=== PATIENT | male | born 1950 | race American Indian/Alaskan Native ===

== ENCOUNTER 2019-05-19 18:07 | Inpatient (IN) | payer MEDICARE ==
[2019-05-19] MEDS ORDERED: NACL 0.9% 1000 ML IV ONE (18:39)
--- NOTE | 2019-05-19 18:42 | Emergency Department Report ---
ED General Adult HPI - General Chief complaint: Weakness Stated complaint: AMS Time Seen by Provider: 05/19/19 18:30 Source: patient, EMS (ems notes not available at time of chart dictation), RN notes reviewed Mode of arrival: Stretcher Limitations: Altered Mental Status, Physical Limitation - History of Present Illness Initial comments: This is a 68-year-old gentleman. The patient is not known to this provider previously. He may have a history of dementia. He is brought to the hospital by emergency medical services. The patient cannot tell me why he called emergency medical services, will [facility] emergency medical services were contacted. No family is available at this time for collateral information. Triage nursing documentation suggests that the patient may have called for weakness and confusion. In the emergency room, the patient is weak, but not confused. He follows all commands. He denies physical pain. He does not know who his doctor is. He does not know if he takes any medications. He indicates that he lives with relatives. No additional history is available at this time. -: unknown Radiation: other Quality: other Consistency: other Improves with: other Worsens with: other Associated Symptoms: other - Related Data Allergies Allergy/AdvReac Type Severity Reaction Status Date / Time Unable to Assess Allergy Unverified 05/19/19 18:20 ED Review of Systems ROS: Stated complaint: AMS Other details as noted in HPI Constitutional: weakness. denies: fever Eyes: denies: eye discharge ENT: denies: epistaxis Respiratory: denies: cough Cardiovascular: denies: chest pain Gastrointestinal: denies: abdominal pain Genitourinary: denies: testicular pain Musculoskeletal: denies: back pain Neurological: weakness Hematological/Lymphatic: denies: easy bleeding ED Past Medical Hx - Past Medical History Additional medical history: Dementia - Social History Smoking Status: Unknown if ever smoked ED Physical Exam - General Limitations: Physical Limitation General appearance: alert, in no apparent distress, cachectic - Head Head exam: Present: atraumatic, normocephalic - Eye Eye exam: Present: normal appearance, EOMI. Absent: nystagmus - ENT ENT exam: Present: normal orophraynx, mucous membranes dry, normal external ear exam - Neck Neck exam: Present: normal inspection, full ROM. Absent: tenderness, meningismus - Respiratory Respiratory exam: Present: normal lung sounds bilaterally. Absent: respiratory distress - Cardiovascular Cardiovascular Exam: Present: regular rate, normal rhythm, normal heart sounds. Absent: bradycardia, tachycardia, irregular rhythm, systolic murmur, diastolic murmur, rubs, gallop - GI/Abdominal GI/Abdominal exam: Present: soft, other (scaphoid abdomen is noted). Absent: distended, tenderness, guarding, rebound, rigid, pulsatile mass - Rectal Rectal exam: Present: normal inspection - exam: Present: normal inspection - Extremities Exam Extremities exam: Present: normal inspection, other (2+ pulses noted in the bilateral upper, lower extremities. Compartments soft. No long bony tenderness. The pelvis is stable.). Absent: calf tenderness - Back Exam Back exam: Present: normal inspection. Absent: tenderness, CVA tenderness (R), CVA tenderness (L), paraspinal tenderness, vertebral tenderness - Neurological Exam Neurological exam: Present: alert (the patient is alert to name, and location. The patient follows commands without difficulty.), other (Extraocular movements intact. Tongue midline. No facial droop. Facial sensation intact to light touch in the V1, V2, V3 distribution bilaterally. 5 and 5 strength in 4 extremities.. Sensation is intact to light touch in 4 extremities.). Absent: motor sensory deficit - Psychiatric Psychiatric exam: Present: flat affect - Skin Skin exam: Present: warm, dry, intact, normal color. Absent: rash ED Course Vital Signs 05/19/19 05/19/19 05/19/19 18:20 18:30 18:43 Temperature 93.5 F L Pulse Rate 59 L Respiratory 16 Rate Blood Pressure 136/78 131/71 Blood Pressure 131/71 [Right] O2 Sat by Pulse 100 100 Oximetry 05/19/19 05/19/19 05/19/19 18:46 19:00 20:00 Temperature Pulse Rate Respiratory Rate Blood Pressure 136/78 136/78 141/78 Blood Pressure [Right] O2 Sat by Pulse 100 100 100 Oximetry 05/19/19 05/19/19 20:10 21:03 Temperature 92 F L Pulse Rate Respiratory 16 Rate Blood Pressure Blood Pressure [Right] O2 Sat by Pulse 100 Oximetry - Reevaluation(s) Reevaluation #1: 05/19/19 18:56 Differential diagnosis, including but not limited to: Environmental hypothermia, thyroid abnormalities, pneumonia, urinary tract infection, malnutrition, dem entia, debility, 05/19/19 18:56 Assessment and plan: 68-year-old gentleman who is alert to name, location, follows commands, indicates that he has no pain, appears quite comfortable, also appears to be chronically wasted, cachectic, with a scaphoid abdomen. There is no neck pain or neck stiffness, he is not encephalopathic Also found to be hypothermic with a core temperature of 93.2. Screening laboratory studies, active patient rewarming, CT scan of the brain, x-ray of the chest, laboratory studies pending. Case management consult has been ordered, to evaluate for possible adult neg lect. Patient will be admitted to the medical service once initial diagnostic 7 resulted. History and physical at this point in time is not consistent with invasive intracranial infection. Reevaluation #2: 05/19/19 20:28 Laboratory studies indicate renal insufficiency, hypoglycemia, elevated troponin, likely type II troponin leak, likely secondary to renal insufficiency, and underlying physiologic stress of dehydration, and presumed malnutrition. X-ray of the chest unremarkable. Dextrose drip is ordered. Accu-Cheks ordered. Reevaluation #3: 05/19/19 20:47 Urinalysis suggests urinary tract infection. Reevaluation #4: 05/19/19 21:32 Patient asking to eat. CT scan of the brain negative for acute disease. Hospital physician, Dr. Paulino accepts patient to the medical service. ED Medical Decision Making - Lab Data Result diagrams: 05/19/19 19:37 05/19/19 19:37 Vital Signs 05/19/19 05/19/19 05/19/19 18:20 18:30 18:43 Temperature 93.5 F L Pulse Rate 59 L Respiratory 16 Rate Blood Pressure 136/78 131/71 Blood Pressure 131/71 [Right] O2 Sat by Pulse 100 100 Oximetry - EKG Data -: EKG Interpreted by Nm EKG shows normal: sinus rhythm Rate: normal - EKG Data When compared to previous EKG there are: previous EKG unavailable 05/19/19 20:29 This is a sinus bradycardia, 58 beats per minute, normal axis, QTC 447 ms, low voltage, borderline left ventricular hypertrophy, no prior for comparison, not consistent with ST TX. - Radiology Data Radiology results: pending, report reviewed, image reviewed X-ray the chest is negative for acute disease. Noncontrast CT scan of the brain: Critical care attestation.: If time is entered above; I have spent that time in minutes in the direct care of this critically ill patient, excluding procedure time. ED Disposition Clinical Impression: Hypothermia, Malnutrition, Debility, PAPITO (acute kidney injury), Hypoglycemia Disposition: DC-09 OP ADMIT IP TO THIS HOSP Is pt being admited?: Yes Condition: Fair Referrals: KATERINA IZQUIERDO MD [Primary Care Provider] - 3-5 Days
[2019-05-19] MEDS ORDERED: D5/0.45NS 1,000 ML IV SCH (19:00)
--- NOTE | 2019-05-19 19:26 | XRay Report ---
CHEST 1 VIEW INDICATION: weak. Generalized weakness and confusion today COMPARISON: None FINDINGS: Support devices: None. Heart: Within normal limits. Lungs/Pleura: No acute air space or interstitial disease. Additional findings: None. IMPRESSION: 1. No acute findings. Signer Name: Cayden Sunshine MD Signed: 05/19/2019 7:22 PM Workstation Name: [id number]
[2019-05-19 19:54] LABS: Basophils % (Auto) 0.7 % (0.0-1.8); Eosinophils # (Auto) 0.1 K/mm3 (0.0-0.4); Eosinophils % (Auto) 1.4 % (0.0-4.3); Hematocrit 33.3 % (35.5-45.6); Hemoglobin 11.1 gm/dl (11.8-15.2); Lymphocytes # (Auto) 1.1 K/mm3 (1.2-5.4); Mean Corpuscular HGB Conc 33 % (32-34); Mean Corpuscular Volume 88 fl (84-94); Monocytes # (Auto) 0.6 K/mm3 (0.0-0.8); Monocytes % (Auto) 13.4 % (0.0-7.3); Platelet Count 185 K/mm3 (140-440); Red Cell Distribution Width 16.4 % (13.2-15.2)
[2019-05-19 20:10] LABS: INR 1.08 (0.87-1.13)
[2019-05-19 20:11] LABS: Partial Thromboplastin Time 30.7 Sec. (24.2-36.6)
[2019-05-19 20:12] LABS: Calcium 9.2 mg/dL (8.4-10.2)
[2019-05-19] MEDS ORDERED: D50W (25GM) Syringe IV PRN (20:27)
[2019-05-19] MEDS ORDERED: D50W (25GM) Syringe IV ONE (20:27)
[2019-05-19] MEDS ORDERED: ROCEPHIN/NS 1 GM/50 ML 1 GM/50 ML BAG IV ONE (20:28)
[2019-05-19 20:29] LABS: Bacteria,Urine 3+ /HPF (Negative); Bilirubin,Urine NEG (Negative); Blood,Urine LG (Negative); Color,Urine Yellow (Yellow); Urobilinogen,Urine < 2.0 mg/dL (<2.0)
[2019-05-19 20:31] LABS: WBC,Urine > 182.0 /HPF (0.0-6.0)
[2019-05-19 20:49] LABS: Chol/HDL Ratio 2.13 %
[2019-05-19] MEDS ORDERED: D10W 1,000 ML IV SCH (21:00)
--- NOTE | 2019-05-19 21:16 | Cat Scan Report ---
CT head/brain wo con INDICATION: hx ams. 68-year-old male TECHNIQUE: Routine CT head without contrast. All CT scans at this location are performed using CT dos e reduction for ALARA by means of automated exposure control. COMPARISON: None. FINDINGS: BRAIN / INTRACRANIAL CONTENTS: Craniotomy site seen in the left frontoparietal region, which includes left frontal sinus. There is encephalomalacia in the adjacent left frontal lobe. Please quickly berna elate. Area of encephalomalacia or prior branch PICA infarcts seen in the left cerebellar hemisphere. Prior angélica hole suggested in the posterior parietal bone on the left. Otherwise, no acute hemorrhage, mass effect, midline shift, hydrocephalus, or acute, large territoria l infarct. Mild to moderate cerebral and cerebellar atrophy. There are mild areas of decreased attenuation in the white matter of the cerebral hemispheres. These are nonspecific findings and may be related to microangiopathy (hypertension, diabetes, atheroscleros is), given the patient's age. It might be difficult to evaluate for small areas of ischemia without d iffusion imaging by MRI. CRANIOCERVICAL JUNCTION: No significant abnormality. ORBITS: No significant abnormality of visualized orbits. SINUSES / MASTOIDS: Mild to moderate mucosal thickening seen in the ethmoids on the left. There is al so mucosal thickening in the mastoid air cells on the right. ADDITIONAL FINDINGS: Minimal atherosclerotic disease is seen in the anterior circulation. IMPRESSION: 1. No focal mass, hemorrhage, hydrocephalus, or acute, large territorial infarct. Signer Name: Jose Stovall MD, III Signed: 05/19/2019 9:11 PM Workstation Name: [id number]
[2019-05-19] MEDS ORDERED: TYLENOL PO PRN (21:58)
[2019-05-19] MEDS ORDERED: SODIUM CHLORIDE FLUSH SYRINGE 10 ML IV PRN (21:58)
[2019-05-19] MEDS ORDERED: MILK OF MAGNESIA PO PRN (21:58)
[2019-05-19] MEDS ORDERED: ZOFRAN IV PRN (21:58)
[2019-05-19] MEDS ORDERED: REGLAN IV PRN ×2 (21:58→22:40)
[2019-05-19] MEDS ORDERED: PEPCID IV SCH ×2 (22:00→23:00)
--- NOTE | 2019-05-19 22:08 | History and Physical Report ---
<DENVER COLINDRES - Last Filed: 05/19/19 23:15> History of Present Illness Date of examination: 05/12/19 Date of admission: 05/19/2019 Chief complaint: weakness, hypoglycemia History of present illness: Patient is a 68-year-old male with past medical history of hypertension, who was brought to the ER by EMS for complaints of weakness. On arrival to the ER, pt BG was 67, his temp was 92.0F, he was barely responsive and unable to provide medical history. On admission, pt was more alert and orientate, able to converse. 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 Pt states that he used to be taking a lot of medications but his doctor took him off of them, he doesn't takes any medications now. He denies recent illness, he denies cough, denies SOB, denies chest pain, denies palpitation, denies abdominal pain, denies N/V/D. Pt is admitted for further evaluation and treatment. Past History Past Medical History: hypertension Past Surgical History: No surgical history Social history: no significant social history Family history: no significant family history Medications and Allergies Allergies Allergy/AdvReac Type Severity Reaction Status Date / Time No Known Allergies Allergy Verified 05/19/19 22:08 Home Medications Medication Instructions Recorded Confirmed Last Taken Type Cholestyramine/Aspartame 239.4 mg PO TID 05/20/19 05/22/19 Unknown History [Cholestyramine Light Powder] Famotidine [Pepcid] 20 mg PO BID 05/20/19 05/20/19 Unknown History Ferrous Gluconate [Fergon 240 MG 240 mg PO BID 05/20/19 05/20/19 Unknown History tab] Finasteride [Proscar] 5 mg PO DAILY 05/20/19 05/20/19 Unknown History Mirtazapine [Remeron 15mg TAB] 15 mg PO QHS 05/20/19 05/20/19 Unknown History Tamsulosin [Flomax] 0.4 mg PO QDAY 05/20/19 05/20/19 Unknown History Vitamin B Complex [B Complex] 1 each PO DAILY 05/20/19 05/20/19 Unknown History Aspirin EC 81 mg PO QDAY tablet 05/22/19 Unknown Rx Fosfomycin Tromethamine [Monurol] 3 gm PO Q48H #3 packet 05/22/19 Unknown Rx Insulin Regular, Human [HumuLIN R] 0 units SUB-Q ACHS units 05/22/19 Unknown Rx Megestrol [Megace] 400 mg PO QDAY oral.liqd 05/22/19 Unknown Rx Active Meds: Active Medications Acetaminophen (Tylenol) 650 mg PO Q4H PRN PRN Reason: Pain MILD(1-3)/Fever >100.5/POLANCO Dextrose (D50w (25gm) Syringe) 50 ml IV PRN PRN PRN Reason: Hypoglycemia Dextrose (D50w (25gm) Syringe) 50 ml IV PRN PRN PRN Reason: Hypoglycemia Famotidine (Pepcid) 20 mg IV BID [facility] Dextrose/Sodium Chloride (D5/0.45ns) 1,000 mls @ 0 mls/hr IV DIRECT [facility] Stop: 05/19/19 23:59 Last Admin: 05/19/19 20:42 Dose: 999 mls/hr Documented by: Dextrose (D10w) 1,000 mls @ 125 mls/hr IV DIRECT [facility] Magnesium Hydroxide (Milk Of Magnesia) 30 ml PO Q4H PRN PRN Reason: Constipation Metoclopramide HCl (Reglan) 10 mg IV Q6H PRN PRN Reason: Nausea And Vomiting Ondansetron HCl (Zofran) 4 mg IV Q8H PRN PRN Reason: Nausea And Vomiting Senna (Senokot) 8.6 mg PO Q12HR [facility] Sodium Chloride (Sodium Chloride Flush Syringe 10 Ml) 10 ml IV BID [facility] Sodium Chloride (Sodium Chloride Flush Syringe 10 Ml) 10 ml IV PRN PRN PRN Reason: LINE FLUSH Review of Systems Constitutional: weakness, other (hypotermia, hypoglycemia) Exam - Constitutional Vitals: Temp Pulse Resp BP Pulse Ox 92 F L 59 L 16 141/78 100 05/19/19 20:10 05/19/19 18:43 05/19/19 21:03 05/19/19 20:00 05/19/19 21:03 General appearance: Present: no acute distress - EENT Eyes: Present: EOM intact ENT: hearing intact - Neck Neck: Present: supple, normal ROM - Respiratory Respiratory effort: normal Respiratory: bilateral: CTA - Cardiovascular Rhythm: regular - Extremities Extremities: no ischemia Peripheral Pulses: within normal limits - Abdominal General gastrointestinal: Present: soft, non-tender, non-distended Male genitourinary: Present: deferred - Integumentary Integumentary: Present: warm, dry - Musculoskeletal Musculoskeletal: strength equal bilaterally - Psychiatric Psychiatric: cooperative - Neurologic Neurologic: moves all extremities - Allied Health Allied health notes reviewed: social work Results - Labs CBC & Chem 7: 05/19/19 19:37 05/19/19 19:37 Labs: Laboratory Last Values WBC 4.2 K/mm3 (4.5-11.0) L 05/19/19 19:37 RBC 3.80 M/mm3 (3.65-5.03) 05/19/19 19:37 Hgb 11.1 gm/dl (11.8-15.2) L 05/19/19 19:37 Hct 33.3 % (35.5-45.6) L 05/19/19 19:37 MCV 88 fl (84-94) 05/19/19 19:37 MCH 29 pg (28-32) 05/19/19 19:37 MCHC 33 % (32-34) 05/19/19 19:37 RDW 16.4 % (13.2-15.2) H 05/19/19 19:37 Plt Count 185 K/mm3 (140-440) 05/19/19 19:37 Lymph % (Auto) 27.0 % (13.4-35.0) 05/19/19 19:37 [place] % (Auto) 13.4 % (0.0-7.3) H 05/19/19 19:37 Eos % (Auto) 1.4 % (0.0-4.3) 05/19/19 19:37 Baso % (Auto) 0.7 % (0.0-1.8) 05/19/19 19:37 Lymph # 1.1 K/mm3 (1.2-5.4) L 05/19/19 19:37 [place] # 0.6 K/mm3 (0.0-0.8) 05/19/19 19:37 Eos # 0.1 K/mm3 (0.0-0.4) 05/19/19 19:37 Baso # 0.0 K/mm3 (0.0-0.1) 05/19/19 19:37 Seg Neutrophils % 57.5 % (40.0-70.0) 05/19/19 19:37 Seg Neutrophils # 2.4 K/mm3 (1.8-7.7) 05/19/19 19:37 PT 13.7 Sec. (12.2-14.9) 05/19/19 19:37 INR 1.08 (0.87-1.13) 05/19/19 19:37 APTT 30.7 Sec. (24.2-36.6) 05/19/19 19:37 Sodium 135 mmol/L (137-145) L 05/19/19 19:37 Potassium 3.8 mmol/L (3.6-5.0) 05/19/19 19:37 Chloride 104.6 mmol/L (98-107) 05/19/19 19:37 Carbon Dioxide 22 mmol/L (22-30) 05/19/19 19:37 12 mmol/L 05/19/19 19:37 BUN 59 mg/dL (9-20) H 05/19/19 19:37 2.0 mg/dL (0.8-1.5) H 05/19/19 19:37 Estimated GFR 33 ml/min 05/19/19 19:37 30 % 05/19/19 19:37 Glucose 67 mg/dL (75-100) L 05/19/19 19:37 Lactic Acid 0.80 mmol/L (0.7-2.0) 05/19/19 19:37 Calcium 9.2 mg/dL (8.4-10.2) 05/19/19 19:37 Magnesium 2.70 mg/dL (1.7-2.3) H 05/19/19 19:37 0.20 mg/dL (0.1-1.2) 05/19/19 19:37 AST 17 units/L (5-40) 05/19/19 19:37 ALT 11 units/L (7-56) 05/19/19 19:37 101 units/L (35-129) 05/19/19 19:37 31 units/L (55-170) L 05/19/19 19:37 0.046 ng/mL (0.00-0.029) H 05/19/19 19:37 5.8 g/dL (6.3-8.2) L 05/19/19 19:37 3.0 g/dL (3.9-5) L 05/19/19 19:37 1.1 % 05/19/19 19:37 Triglycerides 77 mg/dL (2-149) 05/19/19 19:37 Cholesterol 145 mg/dL (50-199) 05/19/19 19:37 71 mg/dL (50-130) 05/19/19 19:37 68 mg/dL (40-59) H 05/19/19 19:37 2.13 % 05/19/19 19:37 TSH 0.969 mlU/mL (0.270-4.200) 05/19/19 19:37 Yellow (Yellow) 05/19/19 20:05 Cloudy (Clear) 05/19/19 20:05 6.0 (5.0-7.0) 05/19/19 20:05 Ur Specific [place] 1.014 (1.003-1.030) 05/19/19 20:05 100 mg/dl mg/dL (Negative) 05/19/19 20:05 Neg mg/dL (Negative) 05/19/19 20:05 Neg mg/dL (Negative) 05/19/19 20:05 Lg (Negative) 05/19/19 20:05 Neg (Negative) 05/19/19 20:05 Neg (Negative) 05/19/19 20:05 < 2.0 mg/dL (<2.0) 05/19/19 20:05 Ur Leukocyte Esterase Lg (Negative) 05/19/19 20:05 > 182.0 /HPF (0.0-6.0) H 05/19/19 20:05 78.0 /HPF (0.0-6.0) 05/19/19 20:05 U Epithel Cells (Auto) 2.0 /HPF (0-13.0) 05/19/19 20:05 3+ /HPF (Negative) 05/19/19 20:05 Assessment and Plan Assessment and plan: 1. Hypoglycemia 2. Generalized weakness (likely due to above) 3. Hyponatremia 4. Dehydration 5. PAPITO (likely due to dehydration) 6. Hypertension 7. Elevated troponin Plan: Patient is admitted for generalized weakness Monitor blood glucose every 4 hours Hypoglycemia protocol IV fluid for hydration and renal perfusion Cardiac diet Cardiac enzymes every 62 Echocardiography DVT prophylaxis with Lovenox 30 mg Plan discussed with patient's voice understanding Patient's condition and plan of care discussed with Dr. Paulino Advance Directives: Yes Plan of care discussed with patient/family: Yes <YOANNA PAULINO - Last Filed: 05/23/19 22:15> History of Present Illness Date of admission: 05/19/19 21:58 Medications and Allergies Active Meds: Active Medications Acetaminophen (Tylenol) 650 mg PO Q4H PRN PRN Reason: Pain MILD(1-3)/Fever >100.5/POLANCO Dextrose (D50w (25gm) Syringe) 50 ml IV PRN PRN PRN Reason: Hypoglycemia Enoxaparin Sodium (Lovenox) 40 mg SUB-Q QDAY@1000 [facility] Famotidine (Pepcid) 10 mg IV BID [facility] Ceftriaxone Sodium (Rocephin/Ns 1 Gm/50 Ml) 1 gm in 50 mls @ 100 mls/hr IV Q24HR [facility]; Protocol Sodium Chloride (Nacl 0.45% 1000 Ml) 1,000 mls @ 75 mls/hr IV DIRECT [facility] Magnesium Hydroxide (Milk Of Magnesia) 30 ml PO Q4H PRN PRN Reason: Constipation Metoclopramide HCl (Reglan) 5 mg IV Q6H PRN PRN Reason: Nausea And Vomiting Ondansetron HCl (Zofran) 4 mg IV Q8H PRN PRN Reason: Nausea And Vomiting Senna (Senokot) 8.6 mg PO Q12HR [facility] Last Admin: 05/19/19 23:53 Dose: Not Given Documented by: Sodium Chloride (Sodium Chloride Flush Syringe 10 Ml) 10 ml IV BID [facility] Last Admin: 05/19/19 22:27 Dose: 10 ml Documented by: Sodium Chloride (Sodium Chloride Flush Syringe 10 Ml) 10 ml IV PRN PRN PRN Reason: LINE FLUSH Exam - Constitutional Vitals: Temp Pulse Resp BP Pulse Ox 97.5 F L 74 18 137/78 100 05/20/19 00:19 05/20/19 00:19 05/20/19 00:19 05/20/19 00:19 05/20/19 00:19 Results - Labs CBC & Chem 7: 05/23/19 04:30 05/23/19 04:30 Labs: Laboratory Last Values WBC 4.2 K/mm3 (4.5-11.0) L 05/19/19 19:37 RBC 3.80 M/mm3 (3.65-5.03) 05/19/19 19:37 Hgb 11.1 gm/dl (11.8-15.2) L 05/19/19 19:37 Hct 33.3 % (35.5-45.6) L 05/19/19 19:37 MCV 88 fl (84-94) 05/19/19 19:37 MCH 29 pg (28-32) 05/19/19 19:37 MCHC 33 % (32-34) 05/19/19 19:37 RDW 16.4 % (13.2-15.2) H 05/19/19 19:37 Plt Count 185 K/mm3 (140-440) 05/19/19 19:37 Lymph % (Auto) 27.0 % (13.4-35.0) 05/19/19 19:37 [place] % (Auto) 13.4 % (0.0-7.3) H 05/19/19 19:37 Eos % (Auto) 1.4 % (0.0-4.3) 05/19/19 19:37 Baso % (Auto) 0.7 % (0.0-1.8) 05/19/19 19:37 Lymph # 1.1 K/mm3 (1.2-5.4) L 05/19/19 19:37 [place] # 0.6 K/mm3 (0.0-0.8) 05/19/19 19:37 Eos # 0.1 K/mm3 (0.0-0.4) 05/19/19 19:37 Baso # 0.0 K/mm3 (0.0-0.1) 05/19/19 19:37 Seg Neutrophils % 57.5 % (40.0-70.0) 05/19/19 19:37 Seg Neutrophils # 2.4 K/mm3 (1.8-7.7) 05/19/19 19:37 PT 13.7 Sec. (12.2-14.9) 05/19/19 19:37 INR 1.08 (0.87-1.13) 05/19/19 19:37 APTT 30.7 Sec. (24.2-36.6) 05/19/19 19:37 Sodium 135 mmol/L (137-145) L 05/19/19 19:37 Potassium 3.8 mmol/L (3.6-5.0) 05/19/19 19:37 Chloride 104.6 mmol/L (98-107) 05/19/19 19:37 Carbon Dioxide 22 mmol/L (22-30) 05/19/19 19:37 12 mmol/L 05/19/19 19:37 BUN 59 mg/dL (9-20) H 05/19/19 19:37 2.0 mg/dL (0.8-1.5) H 05/19/19 19:37 Estimated GFR 33 ml/min 05/19/19 19:37 30 % 05/19/19 19:37 Glucose 67 mg/dL (75-100) L 05/19/19 19:37 POC Glucose 451 (70-105) H 05/19/19 23:39 Lactic Acid 1.10 mmol/L (0.7-2.0) 05/19/19 21:21 Calcium 9.2 mg/dL (8.4-10.2) 05/19/19 19:37 Magnesium 2.70 mg/dL (1.7-2.3) H 05/19/19 19:37 0.20 mg/dL (0.1-1.2) 05/19/19 19:37 AST 17 units/L (5-40) 05/19/19 19:37 ALT 11 units/L (7-56) 05/19/19 19:37 101 units/L (35-129) 05/19/19 19:37 31 units/L (55-170) L 05/19/19 19:37 0.038 ng/mL (0.00-0.029) H 05/20/19 00:38 5.8 g/dL (6.3-8.2) L 05/19/19 19:37 3.0 g/dL (3.9-5) L 05/19/19 19:37 1.1 % 05/19/19 19:37 Triglycerides 77 mg/dL (2-149) 05/19/19 19:37 Cholesterol 145 mg/dL (50-199) 05/19/19 19:37 71 mg/dL (50-130) 05/19/19 19:37 68 mg/dL (40-59) H 05/19/19 19:37 2.13 % 05/19/19 19:37 TSH 0.969 mlU/mL (0.270-4.200) 05/19/19 19:37 Yellow (Yellow) 05/19/19 20:05 Cloudy (Clear) 05/19/19 20:05 6.0 (5.0-7.0) 05/19/19 20:05 Ur Specific [place] 1.014 (1.003-1.030) 05/19/19 20:05 100 mg/dl mg/dL (Negative) 05/19/19 20:05 Neg mg/dL (Negative) 05/19/19 20:05 Neg mg/dL (Negative) 05/19/19 20:05 Lg (Negative) 05/19/19 20:05 Neg (Negative) 05/19/19 20:05 Neg (Negative) 05/19/19 20:05 < 2.0 mg/dL (<2.0) 05/19/19 20:05 Ur Leukocyte Esterase Lg (Negative) 05/19/19 20:05 > 182.0 /HPF (0.0-6.0) H 05/19/19 20:05 78.0 /HPF (0.0-6.0) 05/19/19 20:05 U Epithel Cells (Auto) 2.0 /HPF (0-13.0) 05/19/19 20:05 3+ /HPF (Negative) 05/19/19 20:05 Assessment and Plan Assessment and plan: I saw and evaluated the patient. I agree with the findings and the plan of care as documented in the Nurse Practitioner's note, with the following additions, start IV Rocephin for urinary tract infection
[2019-05-19] MEDS: SODIUM CHLORIDE FLUSH SYRINGE 10 ML IV SCH (22:27)
[2019-05-19] MEDS: SENOKOT PO SCH (23:53)
[2019-05-20] MEDS ORDERED: LOVENOX SUB-Q SCH (10:00)
[2019-05-20] MEDS: ROCEPHIN/NS 1 GM/50 ML 1 GM/50 ML BAG IV SCH ×2 (12:23→19:54)
[2019-05-20] MEDS: HumuLIN R SUB-Q SCH ×3 (12:23→22:10)
[2019-05-20] MEDS: SENOKOT PO SCH ×2 (12:24→22:17)
[2019-05-20] MEDS: SODIUM CHLORIDE FLUSH SYRINGE 10 ML IV SCH ×2 (12:24→22:10)
[2019-05-20] MEDS: HALFPRIN EC PO SCH (12:24)
[2019-05-20] MEDS: PEPCID IV SCH ×2 (12:24→22:10)
[2019-05-20] MEDS: LOVENOX SUB-Q SCH (12:25)
[2019-05-20 12:47] LABS: Calcium 9.2 mg/dL (8.4-10.2)
--- NOTE | 2019-05-20 14:09 | Progress Note ---
Assessment and Plan 1. Hypoglycemia due to poor oral intake 2. Generalized weakness (likely due to above) 3. Hyponatremia, due to dehydration 4. Dehydration, due to poor oral intake 5. PAPITO (likely due to dehydration) with vasomotor nephropathy 6. Hypertension 7. Elevated troponin, likely due to PAPITO 8. Acute metabolic encephalopathy due to hypoglycemia and hyponatremia, POA 9. Dementia, advanced Plan: Patient was admitted for generalized weakness and hypoglecemia Monitor blood glucose every 4 hours, cont Hypoglycemia protocol IV fluid for hydration and renal perfusion consisted carb diet diet, follow 2d echo Family requesting placement as she is requiring 24/7 care Brief History: Patient is a 68-year-old male with past medical history of hypertension, who was brought to the ER by EMS for complaints of weakness. On arrival to the ER, pt BG was 67, his temp was 92.0F, he was barely responsive and unable to provide medical history. Radiological data: Head CT, chest x-ray Hospitalist Physical exam: GENERAL: well-developed lean and thin elderly male lying on bed appeared to be in no discomfort. HEENT: Normocephalic. Atraumatic. No conjunctival congestion or icterus. Patient has moist mucous membranes. NECK: Supple. Trachea midline. CHEST/LUNGS: Clear to auscultated bilaterally, breathing nonlabored. No wheezes crackles or rhonchi. HEART/CARDIOVASCULAR: Regular in rate and rhythm. S1 and S2 positive. ABDOMEN: Abdomen is soft, nontender. Patient has normal bowel sounds. SKIN: There is no rash. Warm and dry. NEURO: No focal motor deficit. Follows command. MUSCULOSKELETAL: No joint effusion or tenderness. EXTRIMITY: No edema, no cyanosis or clubbing. PSYCH: Cooperative. Oriented to self only Subjective Date of service: 05/20/19 Interval history: Patient seen and examined. Medical records and medication list reviewed. No acute event overnight noted by the RN. Patient denies any chest pain or difficulty breathing. Patient is tolerating diet. Appears to be severely demented and only oriented to person, unable to provide any history Discussed plan of care at bedside with patient's RN spoke with patient's [id number], family requesting for placement Objective - Constitutional Vitals: Vital Signs - 12hr 05/20/19 05/20/19 03:51 08:33 Temperature 99.5 F 98.7 F Pulse Rate 84 73 Respiratory 14 16 Rate Blood Pressure 129/72 127/72 O2 Sat by Pulse 99 100 Oximetry - Labs CBC & Chem 7: 05/19/19 19:37 05/20/19 11:46 Labs: Abnormal lab results 05/19/19 05/19/19 05/19/19 Range/Units 19:37 19:37 20:05 WBC 4.2 L (4.5-11.0) K/mm3 Hgb 11.1 L (11.8-15.2) gm/dl Hct 33.3 L (35.5-45.6) % RDW 16.4 H (13.2-15.2) % Gibson % (Auto) 13.4 H (0.0-7.3) % Lymph # 1.1 L (1.2-5.4) K/mm3 Sodium 135 L (137-145) mmol/L BUN 59 H (9-20) mg/dL Creatinine 2.0 H (0.8-1.5) mg/dL Glucose 67 L (75-100) mg/dL POC Glucose (70-105) Magnesium 2.70 H (1.7-2.3) mg/dL Total Creatine Kinase 31 L (55-170) units/L Troponin T 0.046 H (0.00-0.029) ng/mL Total Protein 5.8 L (6.3-8.2) g/dL Albumin 3.0 L (3.9-5) g/dL HDL Cholesterol 68 H (40-59) mg/dL Urine WBC (Auto) > 182.0 H (0.0-6.0) /HPF 05/19/19 05/19/19 05/20/19 Range/Units 21:09 23:39 00:38 WBC (4.5-11.0) K/mm3 Hgb (11.8-15.2) gm/dl Hct (35.5-45.6) % RDW (13.2-15.2) % Gibson % (Auto) (0.0-7.3) % Lymph # (1.2-5.4) K/mm3 Sodium (137-145) mmol/L BUN (9-20) mg/dL Creatinine (0.8-1.5) mg/dL Glucose (75-100) mg/dL POC Glucose 272 H 451 H (70-105) Magnesium (1.7-2.3) mg/dL Total Creatine Kinase (55-170) units/L Troponin T 0.038 H (0.00-0.029) ng/mL Total Protein (6.3-8.2) g/dL Albumin (3.9-5) g/dL HDL Cholesterol (40-59) mg/dL Urine WBC (Auto) (0.0-6.0) /HPF 05/20/19 05/20/19 05/20/19 Range/Units 05:49 11:46 12:16 WBC (4.5-11.0) K/mm3 Hgb (11.8-15.2) gm/dl Hct (35.5-45.6) % RDW (13.2-15.2) % Gibson % (Auto) (0.0-7.3) % Lymph # (1.2-5.4) K/mm3 Sodium 131 L (137-145) mmol/L BUN 49 H (9-20) mg/dL Creatinine 1.9 H (0.8-1.5) mg/dL Glucose 451 H (75-100) mg/dL POC Glucose 428 H (70-105) Magnesium (1.7-2.3) mg/dL Total Creatine Kinase (55-170) units/L Troponin T 0.038 H (0.00-0.029) ng/mL Total Protein (6.3-8.2) g/dL Albumin (3.9-5) g/dL HDL Cholesterol (40-59) mg/dL Urine WBC (Auto) (0.0-6.0) /HPF
[2019-05-20] MEDS: NACL 0.45% 1000 ML 1,000 ML IV SCH (19:54)
[2019-05-20] MEDS: D50W (25GM) Syringe IV PRN (22:17)
[2019-05-21] MEDS: D50W (25GM) Syringe IV PRN (07:38)
[2019-05-21] MEDS: PEPCID IV SCH ×2 (09:14→21:44)
[2019-05-21] MEDS: NACL 0.45% 1000 ML 1,000 ML IV SCH (09:14)
[2019-05-21] MEDS: HALFPRIN EC PO SCH (09:14)
[2019-05-21] MEDS: LOVENOX SUB-Q SCH (09:14)
[2019-05-21] MEDS: SODIUM CHLORIDE FLUSH SYRINGE 10 ML IV SCH ×2 (09:15→21:45)
[2019-05-21] MEDS: ROCEPHIN/NS 1 GM/50 ML 1 GM/50 ML BAG IV SCH (09:15)
[2019-05-21] MEDS: HumuLIN R SUB-Q SCH ×4 (09:15→21:44)
[2019-05-21] MEDS: SENOKOT PO SCH ×2 (09:15→21:44)
[2019-05-21] MEDS: D5NS 1,000 ML IV SCH (12:03)
--- NOTE | 2019-05-21 15:05 | Progress Note ---
Assessment and Plan 1. Hypoglycemia due to poor oral intake 2. Generalized weakness (likely due to above) 3. Hyponatremia, due to dehydration 4. Dehydration, due to poor oral intake 5. PAPITO (likely due to dehydration) with vasomotor nephropathy 6. Hypertension, stable 7. Elevated troponin, likely due to PAPITO and CHF 8. Acute metabolic encephalopathy due to hypoglycemia and hyponatremia, POA 9. Dementia, advanced 10. Acute/new diagnosis of CHF with systolic dysfunction, ef ~ 25%, compensated Plan: Patient was admitted for generalized weakness and hypoglecemia Monitor blood glucose every 4 hours, cont Hypoglycemia protocol change IV fluid for hydration to D5NS 2 low rate, add megace consisted carb diet diet, monitor ins/os Family requesting placement as he is requiring 24/7 care cont medical Mx and supportive care Disposition: needs placement/24/7 care Brief History: Patient is a 68-year-old male with past medical history of hypertension, who was brought to the ER by EMS for complaints of weakness. On arrival to the ER, pt BG was 67, his temp was 92.0F, he was barely responsive and unable to provide medical history. Radiological data: Head CT, chest x-ray Hospitalist Physical exam: GENERAL: well-developed lean and thin elderly male lying on bed appeared to be in no discomfort. HEENT: Normocephalic. Atraumatic. No conjunctival congestion or icterus. Patient has moist mucous membranes. NECK: Supple. Trachea midline. CHEST/LUNGS: Clear to auscultated bilaterally, breathing nonlabored. No wheezes crackles or rhonchi. HEART/CARDIOVASCULAR: Regular in rate and rhythm. S1 and S2 positive. ABDOMEN: Abdomen is soft, nontender. Patient has normal bowel sounds. SKIN: There is no rash. Warm and dry. NEURO: No focal motor deficit. Follows command. MUSCULOSKELETAL: No joint effusion or tenderness. EXTRIMITY: No edema, no cyanosis or clubbing. PSYCH: Cooperative. Oriented to self only Subjective Date of service: 05/21/19 Interval history: Patient seen and examined. Medical records and medication list reviewed. No acute event overnight noted by the RN. Patient denies any chest pain or difficulty breathing. Patient is having poor intake. Appears to be severely demented and only oriented to person, unable to provide any history BG was at 40s this am Objective - Constitutional Vitals: Vital Signs - 12hr 05/21/19 05/21/19 05/21/19 04:11 08:00 08:22 Temperature 98.0 F 98.0 F Pulse Rate 63 59 L 54 L Respiratory 18 16 Rate Blood Pressure 172/82 174/89 Blood Pressure [Right] O2 Sat by Pulse 100 100 Oximetry 05/21/19 05/21/19 11:53 14:34 Temperature 98.2 F 98.6 F Pulse Rate 72 75 Respiratory 16 18 Rate Blood Pressure 168/82 Blood Pressure 132/63 [Right] O2 Sat by Pulse 100 100 Oximetry - Labs CBC & Chem 7: 05/19/19 19:37 05/22/19 05:03 Labs: Abnormal lab results 05/20/19 05/20/19 05/21/19 Range/Units 20:29 22:14 07:19 POC Glucose 50 L 49 L 43 L (70-105) 05/21/19 Range/Units 11:46 POC Glucose 321 H (70-105)
[2019-05-21] MEDS: MEGACE PO SCH ×2 (16:54→16:58)
[2019-05-22 05:53] LABS: Calcium 8.9 mg/dL (8.4-10.2)
[2019-05-22] MEDS: HumuLIN R SUB-Q SCH ×4 (09:06→23:08)
[2019-05-22] MEDS: D5NS 1,000 ML IV SCH (09:07)
[2019-05-22] MEDS: SODIUM CHLORIDE FLUSH SYRINGE 10 ML IV SCH ×2 (09:07→22:45)
[2019-05-22] MEDS: ROCEPHIN/NS 1 GM/50 ML 1 GM/50 ML BAG IV SCH (09:07)
[2019-05-22] MEDS: HALFPRIN EC PO SCH (09:07)
[2019-05-22] MEDS: PEPCID IV SCH ×2 (09:07→22:43)
[2019-05-22] MEDS: LOVENOX SUB-Q SCH (09:07)
[2019-05-22] MEDS: SENOKOT PO SCH ×2 (09:07→22:42)
[2019-05-22] MEDS ORDERED: NON-FORMULARY (Vitamin B Complex [B Complex] 1 EACH) PO SCH (11:15)
[2019-05-22] MEDS: FLOMAX PO SCH (12:41)
[2019-05-22] MEDS: MEGACE PO SCH (12:42)
[2019-05-22] MEDS ORDERED: MERREM/NS 500 MG/50 ML 500 MG/50 ML BAG IV SCH (13:00)
--- NOTE | 2019-05-22 13:34 | Consultation ---
History of Present Illness - Reason for Consult Consult date: 05/22/19 ESBL Klebsiella Requesting physician: MEHNAZ THOMSON - History of Present Illness The patient is a 68-year-old male with hypertension, underlying dementia was brought into the emergency room on 05/19/2019 by EMS due to weakness and altered mental status. On arrival in the ER, his blood sugar was 67 and he was noted to be barely responsive with a temperature of 92.0F. He was given IV fluids as well as IV antibiotics due to concern for possible UTI. Urine culture grew ESBL producing Klebsiella and hence infectious diseases was consulted. Patient is a poor historian. He knows he is in the hospital, unable to tell me the name. He is not oriented to time. He thinks he is here due to difficulty with walking. He has remained afebrile throughout hospitalization. Review of Systems: Not reliable due to dementia. Past History Past Medical History: hypertension Past Surgical History: No surgical history Social history: no significant social history Family history: no significant family history Medications and Allergies Allergies Allergy/AdvReac Type Severity Reaction Status Date / Time No Known Allergies Allergy Verified 05/19/19 22:08 Home Medications Medication Instructions Recorded Confirmed Last Taken Type Acetaminophen [Tylenol] 325 mg PO Q6HR PRN 05/20/19 05/20/19 Unknown History Carvedilol [Coreg] 3.125 mg PO DAILY 05/20/19 05/22/19 Unknown History Cholestyramine/Aspartame 239.4 mg PO TID 05/20/19 05/22/19 Unknown History [Cholestyramine Light Powder] Famotidine [Pepcid] 20 mg PO BID 05/20/19 05/20/19 Unknown History Ferrous Gluconate [Fergon 240 MG 240 mg PO BID 05/20/19 05/20/19 Unknown History tab] Finasteride [Proscar] 5 mg PO DAILY 05/20/19 05/20/19 Unknown History Insulin Glargine [Lantus] 10 unit SUB-Q QHS 05/20/19 05/20/19 Unknown History LORazepam [Ativan] 0.5 mg PO Q6H PRN 05/20/19 05/20/19 Unknown History Mirtazapine [Remeron 15mg TAB] 15 mg PO QHS 05/20/19 05/20/19 Unknown History Ondansetron (Nf) [Zofran TAB] 8 mg PO Q8HR PRN 05/20/19 05/20/19 Unknown History Sodium Bicarbonate 650 mg PO BID 05/20/19 05/20/19 Unknown History Tamsulosin [Flomax] 0.4 mg PO QDAY 05/20/19 05/20/19 Unknown History Vitamin B Complex [B Complex] 1 each PO DAILY 05/20/19 05/20/19 Unknown History Active Meds: Active Medications Acetaminophen (Tylenol) 650 mg PO Q4H PRN PRN Reason: Pain MILD(1-3)/Fever >100.5/POLANCO Aspirin (Halfprin Ec) 81 mg PO QDAY [facility] Last Admin: 05/22/19 09:07 Dose: 81 mg Documented by: Dextrose (D50w (25gm) Syringe) 50 ml IV PRN PRN PRN Reason: Hypoglycemia Last Admin: 05/21/19 07:38 Dose: 50 ml Documented by: Enoxaparin Sodium (Lovenox) 40 mg SUB-Q QDAY@1000 [facility] Last Admin: 05/22/19 09:07 Dose: 40 mg Documented by: Famotidine (Pepcid) 10 mg IV BID [facility] Last Admin: 05/22/19 09:07 Dose: 10 mg Documented by: Dextrose/Sodium Chloride (D5ns) 1,000 mls @ 42 mls/hr IV DIRECT [facility] Last Admin: 05/22/19 09:07 Dose: 42 mls/hr Documented by: Meropenem (Merrem/Ns 500 Mg/50 Ml) 500 mg in 50 mls @ 50 mls/hr IV Q8HR [facility] Last Admin: 05/22/19 12:42 Dose: 50 mls/hr Documented by: Insulin Human Regular (Humulin R) 0 units SUB-Q [facility]; Protocol Last Admin: 05/22/19 12:42 Dose: 3 units Documented by: Magnesium Hydroxide (Milk Of Magnesia) 30 ml PO Q4H PRN PRN Reason: Constipation Megestrol Acetate (Megace) 400 mg PO QDAY [facility] Last Admin: 05/22/19 12:42 Dose: 400 mg Documented by: Metoclopramide HCl (Reglan) 5 mg IV Q6H PRN PRN Reason: Nausea And Vomiting Ondansetron HCl (Zofran) 4 mg IV Q8H PRN PRN Reason: Nausea And Vomiting Senna (Senokot) 8.6 mg PO Q12HR [facility] Last Admin: 05/22/19 09:07 Dose: 8.6 mg Documented by: Sodium Chloride (Sodium Chloride Flush Syringe 10 Ml) 10 ml IV BID [facility] Last Admin: 05/22/19 09:07 Dose: 10 ml Documented by: Sodium Chloride (Sodium Chloride Flush Syringe 10 Ml) 10 ml IV PRN PRN PRN Reason: LINE FLUSH Tamsulosin HCl (Flomax) 0.4 mg PO QDAY [facility] Last Admin: 05/22/19 12:41 Dose: 0.4 mg Documented by: Vitamin B Complex/Folic Acid (Folbee Plus Cz) 1 each PO QDAY [facility] Physical Examination - Physical Exam Narrative exam: Physical Exam: Constitutional: Alert, cooperative. No acute distress Head, Ears, Nose: Normocephalic, atraumatic. External ears, nose normal Eyes: Conjunctivae/corneas clear. No icterus. No ptosis. Neck: Supple, no meningeal signs Oral: no thrush Cardiovascular: S1, S2 normal. Respiratory: Good air entry, clear to auscultation bilaterally GI: Soft, non-tender; bowel sounds normal. No peritoneal signs. No CVA or suprapubic tenderness. Adult diaper + Musculoskeletal: No pedal edema, no cyanosis. Skin: No rash or abscess Hem/Lymphatic: No palpable cervical or supraclavicular nodes. No lymphangitis Psych: Mood ok. Affect flat Neurological: Awake, alert, not oriented. - Constitutional Vitals: Vital Signs Temp Pulse Resp BP Pulse Ox 98.7 F 70 18 138/67 99 05/22/19 07:00 05/22/19 07:00 05/22/19 07:00 05/22/19 07:00 05/22/19 07:00 Temperature -Last 24 Hours Temperature 98.7 F Temperature 98.5 F Temperature 98.5 F Temperature 98.6 F Results - Labs CBC & Chem 7: 05/19/19 19:37 05/22/19 05:03 Labs: Abnormal lab results 05/21/19 05/21/19 05/22/19 Range/Units 16:38 21:43 05:03 Chloride 108.9 H (98-107) mmol/L Carbon Dioxide 21 L (22-30) mmol/L BUN 32 H (9-20) mg/dL Glucose 125 H (75-100) mg/dL POC Glucose 234 H 255 H (70-105) 05/22/19 05/22/19 Range/Units 07:21 11:34 Chloride (98-107) mmol/L Carbon Dioxide (22-30) mmol/L BUN (9-20) mg/dL Glucose (75-100) mg/dL POC Glucose 170 H 243 H (70-105) - Imaging and Cardiology Chest x-ray: report reviewed, image reviewed (Chest x-ray shows no evidence of pneumonia) CT Scan - head: report reviewed, image reviewed (CT head shows no acute intracranial findings) Assessment and Plan Cultures: 05/19/2019 blood culture: No growth 05/19/2019 urine culture: Klebsiella pneumoniae A/P: 68-year-old male with hypertension, underlying dementia admitted with AMS: 1) Acute UTI / cystitis v/s asymptomatic bacteruria: not a reliable historian hence, cannot assess whether truly symptomatic. No fever, no leucocytosis. No bacteremia. UA showed pyuria, patient with incontinence issues. Culture growing ESBL Klebsiella, which should not have responded to Ceftriaxone. At most treat with short course of abx. 2) Acute encephalopathy: ?metabolic from hypoglycemia and hyponatremia. Also likely underlying dementia. 3) PAPITO: renally dose abx. Recs: - d/praveen Meropenem - IV Ertapenem x 1 dose followed by PO fosfomycin 3 gm q48 hrs x 2 additional doses - renal US ordered Erica Bond MD, FACP [facility] C: [phone] O: [phone] F: [phone]
[2019-05-22] MEDS ORDERED: INVanz 1 GM in NACL 0.9% 50 ML IV ONE (13:35)
--- NOTE | 2019-05-22 15:04 | Progress Note ---
Assessment and Plan 1. Hypoglycemia due to poor oral intake 2. Generalized weakness (likely due to above) 3. Hyponatremia, due to dehydration 4. Dehydration, due to poor oral intake 5. PAPITO (likely due to dehydration) with vasomotor nephropathy 6. Hypertension, stable 7. Elevated troponin, likely due to PAPITO and CHF 8. Acute metabolic encephalopathy due to hypoglycemia and hyponatremia, POA 9. Dementia, advanced 10. Acute/new diagnosis of CHF with systolic dysfunction, ef ~ 25%, compensated 13. UTI, ESBL? - colonized? no sign of infection Plan: Patient was admitted for generalized weakness and hypoglycemia Monitor blood glucose every 4 hours, cont Hypoglycemia protocol cont IV fluid D5NS low rate, cont megace consisted carb diet diet, monitor ins/os Family requesting placement as he is requiring 24/7 care Treat UTI with abx per ID cont medical Mx and supportive care Disposition: needs placement - 24/7 care Brief History: Patient is a 68-year-old male with past medical history of hypertension, who was brought to the ER by EMS for complaints of weakness. On arrival to the ER, pt BG was 67, his temp was 92.0F, he was barely responsive and unable to provide medical history. Radiological data: Head CT, chest x-ray Hospitalist Physical exam: GENERAL: well-developed lean and thin elderly male lying on bed appeared to be in no discomfort. HEENT: Normocephalic. Atraumatic. No conjunctival congestion or icterus. Patient has moist mucous membranes. NECK: Supple. Trachea midline. CHEST/LUNGS: Clear to auscultated bilaterally, breathing nonlabored. No wheezes crackles or rhonchi. HEART/CARDIOVASCULAR: Regular in rate and rhythm. S1 and S2 positive. ABDOMEN: Abdomen is soft, nontender. Patient has normal bowel sounds. SKIN: There is no rash. Warm and dry. NEURO: No focal motor deficit. Follows command. MUSCULOSKELETAL: No joint effusion or tenderness. EXTRIMITY: No edema, no cyanosis or clubbing. PSYCH: Cooperative. Oriented to self only Subjective Date of service: 05/22/19 Interval history: Patient seen and examined. Medical records and medication list reviewed. No acute event overnight noted by the RN. Patient denies any chest pain or difficulty breathing. Appears to be severely demented and only oriented to person, unable to provide any history Objective - Constitutional Vitals: Vital Signs - 12hr 05/22/19 05/22/19 05/22/19 07:00 08:00 14:30 Temperature 98.7 F 98.4 F Pulse Rate 70 68 73 Respiratory 18 20 Rate Blood Pressure 128/71 Blood Pressure 138/67 [Right] O2 Sat by Pulse 99 100 Oximetry - Labs CBC & Chem 7: 05/23/19 04:30 05/23/19 04:30 Labs: Abnormal lab results 05/21/19 05/21/19 05/22/19 Range/Units 16:38 21:43 05:03 Chloride 108.9 H (98-107) mmol/L Carbon Dioxide 21 L (22-30) mmol/L BUN 32 H (9-20) mg/dL Glucose 125 H (75-100) mg/dL POC Glucose 234 H 255 H (70-105) 05/22/19 05/22/19 Range/Units 07:21 11:34 Chloride (98-107) mmol/L Carbon Dioxide (22-30) mmol/L BUN (9-20) mg/dL Glucose (75-100) mg/dL POC Glucose 170 H 243 H (70-105)
--- NOTE | 2019-05-22 15:08 | Discharge Summary ---
Providers - Providers Date of Admission: 05/19/19 21:58 Date of discharge: 05/22/19 Attending physician: MEHNAZ THOMSON 05/19/19 18:39 Consult to Case Management [CONS] Urgent Services Needed at Discharge: Book Author Notified:: awaiting call back Additional Physician Instructions: needs placement 05/19/19 21:58 Consult to Dietitian/Nutrition [CONS] Routine Physician Instructions: Reason For Exam: Reason for Consult: Diet education 05/22/19 12:27 Consult to Physician [CONS] Routine Comment: RAMANA Consulting Provider: TOMMY GAY Physician Instructions: WAS NOTIFIED. Reason For Exam: ESBL E.coli 05/22/19 14:36 Occupational Therapy Evaluate and Treat [CONS] Urgent Comment: Reason For Exam: General Weakness Physical Therapy Evaluation and Treat [CONS] Urgent Comment: Reason For Exam: General Weakness Primary care physician: KATERINA IZQUIERDO Hospitalization Condition: Fair Hospital course: Discharge diagnosis: 1. Hypoglycemia due to poor oral intake 2. Generalized weakness (likely due to above) 3. Hyponatremia, due to dehydration 4. Dehydration, due to poor oral intake 5. PAPITO (likely due to dehydration) with vasomotor nephropathy 6. Hypertension, stable 7. Elevated troponin, likely due to PAPITO and CHF 8. Acute metabolic encephalopathy due to hypoglycemia and hyponatremia, POA 9. Dementia, advanced 10. Acute/new diagnosis of CHF with systolic dysfunction, ef ~ 25%, compensated 13. UTI, ESBL? - colonized? no sign of infection Plan: Patient was admitted for generalized weakness and hypoglecemia Monitor blood glucose every 4 hours, cont Hypoglycemia protocol change IV fluid for hydration to D5NS 2 low rate, add megace consisted carb diet diet, monitor ins/os Family requesting placement as he is requiring 24/7 care cont medical Mx and supportive care Disposition: needs placement/24/7 care Brief History: Patient is a 68-year-old male with past medical history of hypertension, who was brought to the ER by EMS for complaints of weakness. On arrival to the ER, pt BG was 67, his temp was 92.0F, he was barely responsive and unable to provide medical history. Radiological data: Head CT, chest x-ray Hospitalist Physical exam: GENERAL: well-developed lean and thin elderly male lying on bed appeared to be in no discomfort. HEENT: Normocephalic. Atraumatic. No conjunctival congestion or icterus. Patient has moist mucous membranes. NECK: Supple. Trachea midline. CHEST/LUNGS: Clear to auscultated bilaterally, breathing nonlabored. No wheezes crackles or rhonchi. HEART/CARDIOVASCULAR: Regular in rate and rhythm. S1 and S2 positive. ABDOMEN: Abdomen is soft, nontender. Patient has normal bowel sounds. SKIN: There is no rash. Warm and dry. NEURO: No focal motor deficit. Follows command. MUSCULOSKELETAL: No joint effusion or tenderness. EXTRIMITY: No edema, no cyanosis or clubbing. PSYCH: Cooperative. Oriented to self only Disposition: DC/TX-03 [facility] C[facility] Time spent for discharge: 34 minutes Core Measure Documentation - Palliative Care Palliative Care/ Comfort Measures: Not Applicable - Core Measures Any of the following diagnoses?: heart failure - Heart Failure Discharge Requirements PANFILO/ARB for LVSD if EF <40%: Not Applicable Beta fran at discharge: No Exam - Constitutional Vitals: Temp Pulse Resp BP Pulse Ox 98.4 F 73 20 128/71 100 05/22/19 14:30 05/22/19 14:30 05/22/19 14:30 05/22/19 14:30 05/22/19 14:30 Plan Activity: fall precautions Weight Bearing Status: Non-Weight Bearing Diet: advance as tolerated Follow up with: KATERINA IZQUIERDO MD [Primary Care Provider] - 3-5 Days Prescriptions: Fosfomycin Tromethamine [Monurol] 3 gm PO Q48H #3 packet
--- NOTE | 2019-05-22 19:22 | Ultrasound Report ---
ULTRASOUND RENAL INDICATION: PAPITO, UTI. COMPARISON: No relevant prior imaging study available. FINDINGS: RIGHT KIDNEY: Size: 10.3 cm. Echogenicity: Echogenic. Cortical thickness: Normal. Hydronephrosis: None. Cyst or mass: None. Stones: None. LEFT KIDNEY: Size: 9.7 cm. Echogenicity: Echogenic. Cortical thickness: Normal. Hydronephrosis: None. Cyst or mass: Simple 2.4 cm renal cyst. Stones: None. Urinary Bladder: No significant abnormality. Free Fluid: None. Additional Findings: None. IMPRESSION 1. Echogenic kidneys characteristic for medical renal disease. No hydronephrosis. 2 simple 2.4 cm left renal cyst. Signer Name: Chris Eid MD Signed: 05/22/2019 7:17 PM Workstation Name: [id number]
[2019-05-23 05:19] LABS: Basophils # (Auto) 0.1 K/mm3 (0.0-0.1); Basophils % (Auto) 1.2 % (0.0-1.8); Eosinophils # (Auto) 0.2 K/mm3 (0.0-0.4); Eosinophils % (Auto) 3.1 % (0.0-4.3); Hematocrit 32.1 % (35.5-45.6); Hemoglobin 10.6 gm/dl (11.8-15.2); Lymphocytes # (Auto) 1.5 K/mm3 (1.2-5.4); Lymphocytes % (Auto) 26.7 % (13.4-35.0); Mean Corpuscular HGB Conc 33 % (32-34); Mean Corpuscular Volume 88 fl (84-94); Monocytes # (Auto) 0.6 K/mm3 (0.0-0.8); Monocytes % (Auto) 10.4 % (0.0-7.3); Platelet Count 217 K/mm3 (140-440); Red Blood Count 3.66 M/mm3 (3.65-5.03); Red Cell Distribution Width 16.4 % (13.2-15.2)
[2019-05-23 05:23] LABS: BUN/Creatinine Ratio 19; Blood Urea Nitrogen 26 mg/dL (9-20); Hemolysis Index 13
[2019-05-23] MEDS: HumuLIN R SUB-Q SCH ×4 (09:03→22:56)
[2019-05-23] MEDS: PEPCID IV SCH ×2 (09:34→22:03)
[2019-05-23] MEDS: FOLBEE PLUS CZ PO SCH (09:34)
[2019-05-23] MEDS: HALFPRIN EC PO SCH (09:34)
[2019-05-23] MEDS: SODIUM CHLORIDE FLUSH SYRINGE 10 ML IV SCH ×2 (09:35→22:14)
[2019-05-23] MEDS: FLOMAX PO SCH (09:35)
[2019-05-23] MEDS: SENOKOT PO SCH ×2 (09:41→22:04)
[2019-05-23] MEDS: LOVENOX SUB-Q SCH (09:41)
[2019-05-23] MEDS: MEGACE PO SCH (09:41)
--- NOTE | 2019-05-23 10:27 | Progress Note ---
Assessment and Plan 1. Hypoglycemia due to poor oral intake 2. Generalized weakness (likely due to above) 3. Hyponatremia, due to dehydration 4. Dehydration, due to poor oral intake 5. PAPITO (likely due to dehydration) with vasomotor nephropathy 6. Hypertension, stable 7. Elevated troponin, likely due to PAPITO and CHF 8. Acute metabolic encephalopathy due to hypoglycemia and hyponatremia, POA 9. Dementia, advanced 10. Acute/new diagnosis of CHF with systolic dysfunction, ef ~ 25%, compensated 13. UTI, ESBL? - colonized? no sign of infection Plan: Patient was admitted for generalized weakness and hypoglycemia Monitor blood glucose every 4 hours, cont Hypoglycemia protocol cont IV fluid D5NS low rate, cont megace consisted carb diet diet, monitor ins/os Family requesting placement as he is requiring 24/7 care Treat UTI with abx per ID cont medical Mx and supportive care Disposition: needs placement - 24/7 care Brief History: Patient is a 68-year-old male with past medical history of hypertension, who was brought to the ER by EMS for complaints of weakness. On arrival to the ER, pt BG was 67, his temp was 92.0F, he was barely responsive and unable to provide medical history. Radiological data: Head CT, chest x-ray Hospitalist Physical exam: GENERAL: well-developed lean and thin elderly male lying on bed appeared to be in no discomfort. HEENT: Normocephalic. Atraumatic. No conjunctival congestion or icterus. Patient has moist mucous membranes. NECK: Supple. Trachea midline. CHEST/LUNGS: Clear to auscultated bilaterally, breathing nonlabored. No wheezes crackles or rhonchi. HEART/CARDIOVASCULAR: Regular in rate and rhythm. S1 and S2 positive. ABDOMEN: Abdomen is soft, nontender. Patient has normal bowel sounds. SKIN: There is no rash. Warm and dry. NEURO: No focal motor deficit. Follows command. MUSCULOSKELETAL: No joint effusion or tenderness. EXTRIMITY: No edema, no cyanosis or clubbing. PSYCH: Cooperative. Oriented to self only Subjective Date of service: 05/23/19 Interval history: Patient seen and examined. Medical records and medication list reviewed. No acute event overnight noted by the RN. Patient denies any chest pain or difficulty breathing. Appears to be severely demented and only oriented to person, unable to provide any history Objective - Constitutional Vitals: Vital Signs - 12hr 05/23/19 05/23/19 02:00 07:33 Temperature 98.6 F 98.3 F Pulse Rate 71 69 Respiratory 10 L 18 Rate Blood Pressure 151/76 Blood Pressure 130/75 [Left] O2 Sat by Pulse 99 100 Oximetry - Labs CBC & Chem 7: 05/23/19 04:30 05/23/19 04:30 Labs: Abnormal lab results 05/22/19 05/22/19 05/22/19 Range/Units 11:34 15:59 16:43 Hgb (11.8-15.2) gm/dl Hct (35.5-45.6) % RDW (13.2-15.2) % Glades % (Auto) (0.0-7.3) % Chloride (98-107) mmol/L BUN (9-20) mg/dL Glucose (75-100) mg/dL POC Glucose 243 H 115 H (70-105) Hemoglobin A1c 11.7 H (4-6) % 05/22/19 05/23/19 05/23/19 Range/Units 23:07 04:30 04:30 Hgb 10.6 L (11.8-15.2) gm/dl Hct 32.1 L (35.5-45.6) % RDW 16.4 H (13.2-15.2) % Glades % (Auto) 10.4 H (0.0-7.3) % Chloride 112.5 H (98-107) mmol/L BUN 26 H (9-20) mg/dL Glucose 211 H (75-100) mg/dL POC Glucose 365 H (70-105) Hemoglobin A1c (4-6) % 05/23/19 Range/Units 07:38 Hgb (11.8-15.2) gm/dl Hct (35.5-45.6) % RDW (13.2-15.2) % Glades % (Auto) (0.0-7.3) % Chloride (98-107) mmol/L BUN (9-20) mg/dL Glucose (75-100) mg/dL POC Glucose 282 H (70-105) Hemoglobin A1c (4-6) %
[2019-05-23] MEDS: MONUROL PO SCH (13:57)
[2019-05-23] MEDS: D5NS 1,000 ML IV SCH (18:40)
[2019-05-24] MEDS: HumuLIN R SUB-Q SCH ×4 (08:23→22:56)
[2019-05-24] MEDS: HALFPRIN EC PO SCH (09:08)
[2019-05-24] MEDS: SENOKOT PO SCH ×2 (09:08→22:13)
[2019-05-24] MEDS: PEPCID IV SCH ×2 (09:08→22:11)
[2019-05-24] MEDS: FOLBEE PLUS CZ PO SCH (09:09)
[2019-05-24] MEDS: FLOMAX PO SCH (09:09)
[2019-05-24] MEDS: LOVENOX SUB-Q SCH (09:10)
[2019-05-24] MEDS: MEGACE PO SCH (09:18)
[2019-05-24] MEDS: SODIUM CHLORIDE FLUSH SYRINGE 10 ML IV SCH ×2 (09:19→22:57)
--- NOTE | 2019-05-24 11:20 | Progress Note ---
Assessment and Plan Cultures: 05/19/2019 blood culture: No growth 05/19/2019 urine culture: Klebsiella pneumoniae A/P: 68-year-old male with hypertension, underlying dementia admitted with AMS: 1) Acute UTI / cystitis v/s asymptomatic bacteruria: not a reliable historian hence, cannot assess whether truly symptomatic. No fever, no leucocytosis. No bacteremia. UA showed pyuria, patient with incontinence issues. Culture growing ESBL Klebsiella, which should not have responded to Ceftriaxone. At most treat with short course of abx. Renal US unremarkable for hydro or pyelo or abscess. 2) Acute encephalopathy: ?metabolic from hypoglycemia and hyponatremia. Also likely underlying dementia. 3) PAPITO: renally dose abx. Recs: - last dose of PO fosfomycin 3 gm today. Will sign off. Please call with questions. Erica Bond MD, FACP [facility] C: [phone] O: [phone] F: [phone] Subjective Date of service: 05/24/19 Interval history: No fever. No complaints. Awake but doesn't know where he is. Objective - Exam Narrative Exam: Physical Exam: Constitutional: Alert, cooperative. No acute distress Head, Ears, Nose: Normocephalic, atraumatic. External ears, nose normal Eyes: Conjunctivae/corneas clear. No icterus. No ptosis. Neck: Supple, no meningeal signs Oral: no thrush Cardiovascular: S1, S2 normal. Respiratory: Good air entry, clear to auscultation bilaterally GI: Soft, non-tender; bowel sounds normal. No peritoneal signs. No CVA or suprapubic tenderness. Adult diaper + Musculoskeletal: No pedal edema, no cyanosis. Skin: No rash or abscess Hem/Lymphatic: No palpable cervical or supraclavicular nodes. No lymphangitis Psych: Mood ok. Affect flat Neurological: Awake, alert, but not oriented. - Constitutional Vitals: Vital Signs Temp Pulse Resp BP Pulse Ox 98.5 F 62 18 166/82 100 05/24/19 07:38 05/24/19 07:38 05/24/19 08:45 05/24/19 07:38 05/24/19 07:38 Temperature -Last 24 Hours Temperature 98.5 F Temperature 98.4 F Temperature 98.2 F Temperature 97.8 F - Labs CBC & Chem 7: 05/23/19 04:30 05/23/19 04:30 Labs: Abnormal lab results 05/23/19 05/23/19 05/23/19 Range/Units 11:50 16:58 22:25 POC Glucose 255 H 229 H 179 H (70-105) 05/24/19 Range/Units 07:46 POC Glucose 196 H (70-105)
--- NOTE | 2019-05-24 11:28 | Progress Note ---
Assessment and Plan 1. Hypoglycemia due to poor oral intake 2. Generalized weakness (likely due to above) 3. Hyponatremia, due to dehydration 4. Dehydration, due to poor oral intake 5. PAPITO (likely due to dehydration) with vasomotor nephropathy 6. Hypertension, stable 7. Elevated troponin, likely due to PAPITO and CHF 8. Acute metabolic encephalopathy due to hypoglycemia and hyponatremia, POA 9. Dementia, advanced 10. Acute/new diagnosis of CHF with systolic dysfunction, ef ~ 25%, compensated 13. UTI, ESBL? - colonized? no sign of infection Plan: Patient was admitted for generalized weakness and hypoglycemia Monitor blood glucose every 4 hours, cont Hypoglycemia protocol cont IV fluid D5NS low rate, cont megace consisted carb diet diet, monitor ins/os Family requesting placement as he is requiring 24/7 care Treat UTI with abx per ID cont medical Mx and supportive care Disposition: needs placement - 24/7 care Brief History: Patient is a 68-year-old male with past medical history of hypertension, who was brought to the ER by EMS for complaints of weakness. On arrival to the ER, pt BG was 67, his temp was 92.0F, he was barely responsive and unable to provide medical history. Radiological data: Head CT, chest x-ray Hospitalist Physical exam: GENERAL: well-developed lean and thin elderly male lying on bed appeared to be in no discomfort. HEENT: Normocephalic. Atraumatic. No conjunctival congestion or icterus. Patient has moist mucous membranes. NECK: Supple. Trachea midline. CHEST/LUNGS: Clear to auscultated bilaterally, breathing nonlabored. No wheezes crackles or rhonchi. HEART/CARDIOVASCULAR: Regular in rate and rhythm. S1 and S2 positive. ABDOMEN: Abdomen is soft, nontender. Patient has normal bowel sounds. SKIN: There is no rash. Warm and dry. NEURO: No focal motor deficit. Follows command. MUSCULOSKELETAL: No joint effusion or tenderness. EXTRIMITY: No edema, no cyanosis or clubbing. PSYCH: Cooperative. Oriented to self only Subjective Date of service: 05/24/19 Interval history: Patient seen and examined. Medical records and medication list reviewed. No acute event overnight noted by the RN. Patient denies any chest pain or difficulty breathing. Appears to be severely demented and only oriented to person, unable to provide any history Objective - Constitutional Vitals: Vital Signs - 12hr 05/24/19 05/24/19 05/24/19 02:19 07:38 08:45 Temperature 98.4 F 98.5 F Pulse Rate 66 62 Respiratory 14 18 18 Rate Blood Pressure 156/85 166/82 O2 Sat by Pulse 100 100 Oximetry - Labs CBC & Chem 7: 05/23/19 04:30 05/23/19 04:30 Labs: Abnormal lab results 05/23/19 05/23/19 05/23/19 Range/Units 11:50 16:58 22:25 POC Glucose 255 H 229 H 179 H (70-105) 05/24/19 Range/Units 07:46 POC Glucose 196 H (70-105)
[2019-05-25] MEDS: D5NS 1,000 ML IV SCH (01:33)
[2019-05-25] MEDS: HumuLIN R SUB-Q SCH ×4 (08:20→22:39)
[2019-05-25] MEDS: PEPCID PO SCH ×2 (10:35→22:37)
[2019-05-25] MEDS: FOLBEE PLUS CZ PO SCH (10:35)
[2019-05-25] MEDS: SENOKOT PO SCH ×3 (10:35→22:40)
[2019-05-25] MEDS: HALFPRIN EC PO SCH (10:35)
[2019-05-25] MEDS: FLOMAX PO SCH (10:36)
[2019-05-25] MEDS: MEGACE PO SCH (10:36)
[2019-05-25] MEDS: LOVENOX SUB-Q SCH (10:37)
[2019-05-25] MEDS: SODIUM CHLORIDE FLUSH SYRINGE 10 ML IV SCH ×2 (12:34→22:39)
--- NOTE | 2019-05-25 13:13 | Progress Note ---
Assessment and Plan 1. Hypoglycemia due to poor oral intake 2. Generalized weakness (likely due to above) 3. Hyponatremia, due to dehydration 4. Dehydration, due to poor oral intake 5. PAPITO (likely due to dehydration) with vasomotor nephropathy 6. Hypertension, stable 7. Elevated troponin, likely due to PAPITO and CHF 8. Acute metabolic encephalopathy due to hypoglycemia and hyponatremia, POA - now at baseline 9. Dementia, advanced 10. Acute/new diagnosis of CHF with systolic dysfunction, ef ~ 25%, compensated - denies any chest pain, 11. UTI, ESBL? - colonized? no sign of infection, abx per ID 12. DM type 2, a1c 11.7 Plan: Patient was admitted for generalized weakness and hypoglycemia Monitored blood glucose qACHS with SSI, cont Hypoglycemia protocol s/p IV fluid D5NS low rate to prevent hypoglycemia, cont megace to improve appetite consisted carb diet diet, monitor ins/os, daily wt Family requesting placement as he is requiring 24/7 care Treated UTI with abx per ID cont medical Mx and supportive care consulted cardiology, plan for stress test tomorrow Disposition: needs placement - 24/7 care. f/u cardiology recommendation Brief History: Patient is a 68-year-old male with past medical history of hypertension, who was brought to the ER by EMS for complaints of weakness. On arrival to the ER, pt BG was 67, his temp was 92.0F, he was barely responsive and unable to provide medical history. Radiological data: Head CT, chest x-ray, renal us, 2d echo Hospitalist Physical exam: GENERAL: well-developed lean and thin elderly male lying on bed appeared to be in no discomfort. HEENT: Normocephalic. Atraumatic. No conjunctival congestion or icterus. Patient has moist mucous membranes. NECK: Supple. Trachea midline. CHEST/LUNGS: Clear to auscultated bilaterally, breathing nonlabored. No wheezes crackles or rhonchi. HEART/CARDIOVASCULAR: Regular in rate and rhythm. S1 and S2 positive. ABDOMEN: Abdomen is soft, nontender. Patient has normal bowel sounds. SKIN: There is no rash. Warm and dry. NEURO: No focal motor deficit. Follows command. MUSCULOSKELETAL: No joint effusion or tenderness. EXTRIMITY: No edema, no cyanosis or clubbing. PSYCH: Cooperative. Oriented to self only Subjective Date of service: 05/25/19 Interval history: Patient seen and examined. Medical records and medication list reviewed. No acute event overnight noted by the RN. Patient denies any chest pain or difficulty breathing. Appears to be severely demented and only oriented to person, unable to provide any history Objective - Constitutional Vitals: Vital Signs - 12hr 05/25/19 05/25/19 02:02 07:12 Temperature 98.4 F 98.0 F Pulse Rate 70 71 Respiratory 18 20 Rate Blood Pressure 159/83 138/75 O2 Sat by Pulse 100 100 Oximetry - Labs CBC & Chem 7: 05/23/19 04:30 05/23/19 04:30 Labs: Abnormal lab results 05/24/19 05/24/19 05/25/19 Range/Units 16:26 21:12 07:17 POC Glucose 174 H 244 H 331 H (70-105) 05/25/19 Range/Units 11:40 POC Glucose 380 H (70-105)
[2019-05-25] MEDS: MONUROL PO SCH (15:23)
--- NOTE | 2019-05-25 16:06 | Consultation ---
History of Present Illness Consult date: 05/25/19 Requesting physician: MEHNAZ THOMSON Consult reason: congestive heart failure History of present illness: The patient was reportedly brought to the hospital with generalized weakness and altered sensorium. He was noted to be hypoglycemic at presentation. There was evidence of dehydration with acute kidney injury which has improved significantly. Urine culture grew Klebsiella. Echocardiogram was technically suboptimal in quality. Ejection fraction was reported as 25-30%. Upon review of his echo, the study quality could have been improved with echo contrast agent. However, there is mild LVH with moderate to severe global systolic dysfunction. He denies dyspnea, chest pain, orthopnea or leg edema. Past History Past Medical History: hypertension Past Surgical History: No surgical history Social history: other (He is a former smoker and drank alcohol in the past. He has since stopped both). denies: smoking, alcohol abuse Family history: denies: CAD Medications and Allergies Allergies Allergy/AdvReac Type Severity Reaction Status Date / Time No Known Allergies Allergy Verified 05/19/19 22:08 Home Medications Medication Instructions Recorded Confirmed Last Taken Type Cholestyramine/Aspartame 239.4 mg PO TID 05/20/19 05/22/19 Unknown History [Cholestyramine Light Powder] Famotidine [Pepcid] 20 mg PO BID 05/20/19 05/20/19 Unknown History Ferrous Gluconate [Fergon 240 MG 240 mg PO BID 05/20/19 05/20/19 Unknown History tab] Finasteride [Proscar] 5 mg PO DAILY 05/20/19 05/20/19 Unknown History Mirtazapine [Remeron 15mg TAB] 15 mg PO QHS 05/20/19 05/20/19 Unknown History Tamsulosin [Flomax] 0.4 mg PO QDAY 05/20/19 05/20/19 Unknown History Vitamin B Complex [B Complex] 1 each PO DAILY 05/20/19 05/20/19 Unknown History Aspirin EC 81 mg PO QDAY tablet 05/22/19 Unknown Rx Fosfomycin Tromethamine [Monurol] 3 gm PO Q48H #3 packet 05/22/19 Unknown Rx Insulin Regular, Human [HumuLIN R] 0 units SUB-Q ACHS units 05/22/19 Unknown Rx Megestrol [Megace] 400 mg PO QDAY oral.liqd 05/22/19 Unknown Rx Active Meds: Active Medications Acetaminophen (Tylenol) 650 mg PO Q4H PRN PRN Reason: Pain MILD(1-3)/Fever >100.5/POLANCO Aspirin (Halfprin Ec) 81 mg PO QDAY [facility] Last Admin: 05/25/19 10:35 Dose: 81 mg Documented by: Dextrose (D50w (25gm) Syringe) 50 ml IV PRN PRN PRN Reason: Hypoglycemia Last Admin: 05/21/19 07:38 Dose: 50 ml Documented by: Enoxaparin Sodium (Lovenox) 40 mg SUB-Q QDAY@1000 [facility] Last Admin: 05/25/19 10:37 Dose: 40 mg Documented by: Famotidine (Pepcid) 10 mg PO BID [facility] Last Admin: 05/25/19 10:35 Dose: 10 mg Documented by: Insulin Human Regular (Humulin R) 0 units SUB-Q [facility]; Protocol Last Admin: 05/25/19 12:32 Dose: 8 units Documented by: Magnesium Hydroxide (Milk Of Magnesia) 30 ml PO Q4H PRN PRN Reason: Constipation Megestrol Acetate (Megace) 400 mg PO QDAY [facility] Last Admin: 05/25/19 10:36 Dose: Not Given Documented by: Metoclopramide HCl (Reglan) 5 mg IV Q6H PRN PRN Reason: Nausea And Vomiting Ondansetron HCl (Zofran) 4 mg IV Q8H PRN PRN Reason: Nausea And Vomiting Senna (Senokot) 8.6 mg PO Q12HR [facility] Last Admin: 05/25/19 10:35 Dose: Not Given Documented by: Sodium Chloride (Sodium Chloride Flush Syringe 10 Ml) 10 ml IV BID [facility] Last Admin: 05/25/19 12:34 Dose: 10 ml Documented by: Sodium Chloride (Sodium Chloride Flush Syringe 10 Ml) 10 ml IV PRN PRN PRN Reason: LINE FLUSH Tamsulosin HCl (Flomax) 0.4 mg PO QDAY [facility] Last Admin: 05/25/19 10:36 Dose: 0.4 mg Documented by: Vitamin B Complex/Folic Acid (Folbee Plus Cz) 1 each PO QDAY [facility] Last Admin: 05/25/19 10:35 Dose: 1 each Documented by: Review of Systems Constitutional: no fever, no chills Ears, nose, mouth and throat: no ear pain, no ear discharge, no sore throat Cardiovascular: no chest pain, no orthopnea, no palpitations, no lightheadedness, no shortness of breath Respiratory: no cough, no hemoptysis, no shortness of breath Gastrointestinal: no abdominal pain, no nausea, no vomiting, no diarrhea, no constipation Genitourinary Male: no dysuria, no hematuria, no urinary frequency Rectal: no pain, no bleeding Musculoskeletal: no neck stiffness, no neck pain, no myalgias Integumentary: no rash, no pruritis Neurological: no weakness, no parathesias, no numbness, no headaches Endocrine: no cold intolerance, no heat intolerance Hematologic/Lymphatic: no easy bruising, no easy bleeding Allergic/Immunologic: no urticaria, no wheezing Physical Examination Vital Signs Last Vital Signs Temp 98.0 F 05/25/19 13:11 Pulse 75 05/25/19 13:11 Resp 20 05/25/19 13:11 BP 157/92 05/25/19 13:11 Pulse Ox 100 05/25/19 13:11 General appearance: no acute distress HEENT: Positive: EOMI, Normocephaly, Mucus Membranes Moist Neck: Positive: neck supple, trachea midline Cardiac: Positive: Reg Rate and Rhythm, S1/S2 Lungs: Positive: clear to auscultation Neuro: Positive: Grossly Intact Abdomen: Positive: Soft, Active Bowel Sounds. Negative: Tender Skin: Positive: Clear. Negative: Rash Musculoskeletal: Normal Range of Motion Extremities: Present: normal. Absent: edema Results 05/23/19 04:30 05/23/19 04:30 - Imaging and Cardiology EKG: image reviewed EKG interpretations - Telemetry EKG Rhythm: Sinus Bradycardia Assessment and Plan The patient is not in clinical heart failure, although he appears to have LV systolic dysfunction. Initiate antihypertensive regimen. Schedule for Lexiscan stress test with nuclear imaging in a.m. - Patient Problems (1) Cardiomyopathy Current Visit: Yes Status: Acute (2) Elevated troponin level Current Visit: Yes Status: Acute (3) Generalized weakness Current Visit: Yes Status: Acute (4) Dehydration Current Visit: Yes Status: Acute (5) PAPITO (acute kidney injury) Current Visit: Yes Status: Acute (6) Hypertension Current Visit: Yes Status: Chronic Qualifiers: Hypertension type: essential hypertension Qualified Code(s): I10 - Ess ential (primary) hypertension (7) Hypoglycemia Current Visit: Yes Status: Acute
[2019-05-25] MEDS: NORVASC PO SCH (19:27)
[2019-05-25] MEDS: LOPRESSOR PO SCH (22:37)
[2019-05-26] MEDS: HumuLIN R SUB-Q SCH ×4 (08:34→22:58)
[2019-05-26] MEDS ORDERED: LEXISCAN IV ONE (09:00)
[2019-05-26 10:09] LABS: BUN/Creatinine Ratio 12; Blood Urea Nitrogen 14 mg/dL (9-20); Calcium 9.4 mg/dL (8.4-10.2); Hemolysis Index 1
[2019-05-26] MEDS: FLOMAX PO SCH (11:12)
[2019-05-26] MEDS: FOLBEE PLUS CZ PO SCH (11:12)
[2019-05-26] MEDS: MEGACE PO SCH ×2 (11:12→12:27)
[2019-05-26] MEDS: LOPRESSOR PO SCH ×2 (11:12→22:58)
[2019-05-26] MEDS: LOVENOX SUB-Q SCH (11:12)
[2019-05-26] MEDS: NORVASC PO SCH ×2 (11:13→12:24)
[2019-05-26] MEDS: HALFPRIN EC PO SCH (11:13)
[2019-05-26] MEDS: SODIUM CHLORIDE FLUSH SYRINGE 10 ML IV SCH ×2 (11:14→23:00)
[2019-05-26] MEDS: PEPCID PO SCH ×2 (11:14→22:58)
[2019-05-26] MEDS: SENOKOT PO SCH ×2 (11:14→23:00)
--- NOTE | 2019-05-26 11:16 | Progress Note ---
Assessment and Plan Cardiac status appears stable at this time. Optimize BP regimen. He may be discharged home from a cardiac standpoint to follow up as an outpatient in a couple weeks. - Patient Problems (1) Cardiomyopathy Current Visit: Yes Status: Acute (2) Elevated troponin level Current Visit: Yes Status: Acute (3) Generalized weakness Current Visit: Yes Status: Acute (4) Dehydration Current Visit: Yes Status: Acute (5) PAPITO (acute kidney injury) Current Visit: Yes Status: Acute (6) Hypertension Current Visit: Yes Status: Chronic Qualifiers: Hypertension type: essential hypertension Qualified Code(s): I10 - Essential (primary) hypertension (7) Hypoglycemia Current Visit: Yes Status: Acute Subjective Date of service: 05/26/19 Principal diagnosis: CMP, Elevated Tn, HTN, Weakness, PAPITO, Dehydration Interval history: This morning, the patient declined stress testing. This is despite explaining the indication in detail. He complains of vertigo. This occurs intermittently. Objective Vital Signs Temp Pulse Resp BP Pulse Ox 05/26/19 07:48 98 05/26/19 07:20 98.0 F 60 20 162/78 100 05/26/19 02:15 98.2 F 58 L 18 141/73 100 05/25/19 22:37 64 157/72 05/25/19 22:00 20 98 05/25/19 19:29 98.8 F 64 18 157/72 98 05/25/19 19:27 65 157/72 05/25/19 13:11 98.0 F 75 20 157/92 100 - Physical Examination General: No Apparent Distress HEENT: Positive: EOMI, Normocephaly, Mucus Membranes Moist Neck: Positive: neck supple, trachea midline Cardiac: Positive: Reg Rate and Rhythm, S1/S2 Lungs: Positive: clear to auscultation Neuro: Positive: Grossly Intact Abdomen: Positive: Soft, Active Bowel Sounds. Negative: Tender Skin: Positive: Clear. Negative: Rash Musculoskeletal: Normal Range of Motion Extremities: Present: normal. Absent: edema - Labs and Meds Comprehensive Metabolic Panel 05/26/19 Range/Units 09:32 Sodium 141 (137-145) mmol/L Potassium 5.0 (3.6-5.0) mmol/L Chloride 109.4 H (98-107) mmol/L Carbon Dioxide 24 (22-30) mmol/L BUN 14 (9-20) mg/dL Creatinine 1.2 (0.8-1.5) mg/dL Glucose 258 H (75-100) mg/dL Calcium 9.4 (8.4-10.2) mg/dL - Imaging and Cardiology EKG: image reviewed
--- NOTE | 2019-05-26 12:46 | Progress Note ---
Assessment and Plan Assessment and plan: Patient is a 68-year-old male with past medical history of hypertension, who was brought to the ER by EMS for complaints of weakness. On arrival to the ER, pt BG was 67, his temp was 92.0F, he was barely responsive and unable to provide medical history. 1. Hypoglycemia due to poor oral intake 2. Generalized weakness (likely due to above) 3. Hyponatremia, due to dehydration 4. Dehydration, due to poor oral intake 5. PAPITO (likely due to dehydration) with vasomotor nephropathy 6. Hypertension, stable 7. Elevated troponin, likely due to PAPITO and CHF 8. Acute metabolic encephalopathy due to hypoglycemia and hyponatremia, POA - now at baseline 9. Dementia, advanced 10. Acute/new diagnosis of CHF with systolic dysfunction, ef ~ 25%, compensated - denies any chest pain, 11. UTI, ESBL? - colonized? no sign of infection, abx per ID 12. DM type 2, a1c 11.7 Plan: Patient was admitted for generalized weakness and hypoglycemia Monitored blood glucose qACHS with SSI, cont Hypoglycemia protocol s/p IV fluid D5NS low rate to prevent hypoglycemia, cont megace to improve appetite consisted carb diet diet, monitor ins/os, daily wt Family requesting placement as he is requiring 24/7 care Treated UTI with abx per ID cont medical Mx and supportive care consulted cardiology, plan work today but patient declined. Cardiology cleared him for discharge. Patient's going to SNF and patient will be discharged today or tomorrow based on SNF availability. History Interval history: Patient was seen and evaluated this morning, patient did not have any comp laints. Patient refused to have a stress test. Patient said he doesn't want to go to SNF and he wants to go to his friend's house. Patient is going to SNF. Hospitalist Physical - Physical exam Narrative exam: Not in cardiopulmonary distress. The patient is emaciated. Vital signs as documented. Head exam is unremarkable. No scleral icterus . Neck is without jugular venous distension, thyromegaly, or carotid bruits. Lungs are clear to auscultation. Cardiac exam reveals regular rate and Rhythm. Abdominal exam reveals normal bowel sounds, no masses, no organomegaly and no aortic enlargement. Extremities are nonedematous and both femoral and pedal pulses are normal. WESTERN PHILOSOPHY PROFESSOR: Alert and oriented 3. No focal weakness. - Constitutional Vitals: Temp Pulse Resp BP Pulse Ox 98.0 F 60 20 162/78 98 05/26/19 07:20 05/26/19 07:20 05/26/19 07:20 05/26/19 07:20 05/26/19 07:48 General appearance: Present: no acute distress Results - Labs CBC & Chem 7: 05/23/19 04:30 05/26/19 09:32 Labs: Laboratory Last Values WBC 5.4 K/mm3 (4.5-11.0) 05/23/19 04:30 RBC 3.66 M/mm3 (3.65-5.03) 05/23/19 04:30 Hgb 10.6 gm/dl (11.8-15.2) L 05/23/19 04:30 Hct 32.1 % (35.5-45.6) L 05/23/19 04:30 MCV 88 fl (84-94) 05/23/19 04:30 MCH 29 pg (28-32) 05/23/19 04:30 MCHC 33 % (32-34) 05/23/19 04:30 RDW 16.4 % (13.2-15.2) H 05/23/19 04:30 Plt Count 217 K/mm3 (140-440) 05/23/19 04:30 Lymph % (Auto) 26.7 % (13.4-35.0) 05/23/19 04:30 [place] % (Auto) 10.4 % (0.0-7.3) H 05/23/19 04:30 Eos % (Auto) 3.1 % (0.0-4.3) 05/23/19 04:30 Baso % (Auto) 1.2 % (0.0-1.8) 05/23/19 04:30 Lymph # 1.5 K/mm3 (1.2-5.4) 05/23/19 04:30 [place] # 0.6 K/mm3 (0.0-0.8) 05/23/19 04:30 Eos # 0.2 K/mm3 (0.0-0.4) 05/23/19 04:30 Baso # 0.1 K/mm3 (0.0-0.1) 05/23/19 04:30 Seg Neutrophils % 58.6 % (40.0-70.0) 05/23/19 04:30 Seg Neutrophils # 3.2 K/mm3 (1.8-7.7) 05/23/19 04:30 PT 13.7 Sec. (12.2-14.9) 05/19/19 19:37 INR 1.08 (0.87-1.13) 05/19/19 19:37 APTT 30.7 Sec. (24.2-36.6) 05/19/19 19:37 Sodium 141 mmol/L (137-145) 05/26/19 09:32 Potassium 5.0 mmol/L (3.6-5.0) 05/26/19 09:32 Chloride 109.4 mmol/L (98-107) H 05/26/19 09:32 Carbon Dioxide 24 mmol/L (22-30) 05/26/19 09:32 13 mmol/L 05/26/19 09:32 BUN 14 mg/dL (9-20) 05/26/19 09:32 1.2 mg/dL (0.8-1.5) 05/26/19 09:32 Estimated GFR > 60 ml/min 05/26/19 09:32 12 % 05/26/19 09:32 Glucose 258 mg/dL (75-100) H 05/26/19 09:32 POC Glucose 282 (70-105) H 05/26/19 11:51 11.7 % (4-6) H 05/22/19 15:59 Lactic Acid 1.10 mmol/L (0.7-2.0) 05/19/19 21:21 Calcium 9.4 mg/dL (8.4-10.2) 05/26/19 09:32 Magnesium 2.70 mg/dL (1.7-2.3) H 05/19/19 19:37 0.20 mg/dL (0.1-1.2) 05/19/19 19:37 AST 17 units/L (5-40) 05/19/19 19:37 ALT 11 units/L (7-56) 05/19/19 19:37 101 units/L (35-129) 05/19/19 19:37 31 units/L (55-170) L 05/19/19 19:37 0.038 ng/mL (0.00-0.029) H 05/20/19 05:49 5.8 g/dL (6.3-8.2) L 05/19/19 19:37 3.0 g/dL (3.9-5) L 05/19/19 19:37 1.1 % 05/19/19 19:37 Triglycerides 77 mg/dL (2-149) 05/19/19 19:37 Cholesterol 145 mg/dL (50-199) 05/19/19 19:37 71 mg/dL (50-130) 05/19/19 19:37 68 mg/dL (40-59) H 05/19/19 19:37 2.13 % 05/19/19 19:37 TSH 0.969 mlU/mL (0.270-4.200) 05/19/19 19:37 Yellow (Yellow) 05/19/19 20:05 Cloudy (Clear) 05/19/19 20:05 6.0 (5.0-7.0) 05/19/19 20:05 Ur Specific [place] 1.014 (1.003-1.030) 05/19/19 20:05 100 mg/dl mg/dL (Negative) 05/19/19 20:05 Neg mg/dL (Negative) 05/19/19 20:05 Neg mg/dL (Negative) 05/19/19 20:05 Lg (Negative) 05/19/19 20:05 Neg (Negative) 05/19/19 20:05 Neg (Negative) 05/19/19 20:05 < 2.0 mg/dL (<2.0) 05/19/19 20:05 Ur Leukocyte Esterase Lg (Negative) 05/19/19 20:05 > 182.0 /HPF (0.0-6.0) H 05/19/19 20:05 78.0 /HPF (0.0-6.0) 05/19/19 20:05 U Epithel Cells (Auto) 2.0 /HPF (0-13.0) 05/19/19 20:05 3+ /HPF (Negative) 05/19/19 20:05 Active Medications - Current Medications Current Medications: Generic Name Dose Route Start Last Admin Trade Name Freq PRN Reason Stop Dose Admin Acetaminophen 650 mg 05/19/19 21:58 Tylenol PO Q4H PRN Pain MILD(1-3)/Fever >100.5/POLANCO Amlodipine Besylate 10 mg 05/26/19 12:00 05/26/19 12:24 Norvasc PO 10 mg QDAY ELIZABETH Administration Aspirin 81 mg 05/20/19 12:00 05/26/19 11:13 Halfprin Ec PO 81 mg QDAY ELIZABETH Administration Dextrose 50 ml 05/19/19 21:58 05/21/19 07:38 D50w (25gm) Syringe IV 50 ml PRN PRN Administration Hypoglycemia Enoxaparin Sodium 40 mg 05/20/19 10:00 05/26/19 11:12 Lovenox SUB-Q 40 mg QDAY@1000 ELIZABETH Administration Famotidine 10 mg 05/25/19 10:00 05/26/19 11:14 Pepcid PO 10 mg BID ELIZABETH Administration Insulin Human Regular 0 units 05/20/19 11:30 05/26/19 12:24 Humulin R SUB-Q 4 units ACHS ELIZABETH Administration Protocol Magnesium Hydroxide 30 ml 05/19/19 21:58 Milk Of Magnesia PO Q4H PRN Constipation Megestrol Acetate 400 mg 05/21/19 16:00 05/26/19 12:27 Megace PO Not Given QDAY ELIZABETH Metoclopramide HCl 5 mg 05/19/19 22:40 Reglan IV Q6H PRN Nausea And Vomiting Metoprolol Tartrate 12.5 mg 05/25/19 22:00 05/26/19 11:12 Lopressor PO 12.5 mg BID ELIZABETH Administration Ondansetron HCl 4 mg 05/19/19 21:58 Zofran IV Q8H PRN Nausea And Vomiting Senna 8.6 mg 05/19/19 22:00 05/26/19 11:14 Senokot PO 8.6 mg Q12HR ELIZABETH Administration Sodium Chloride 10 ml 05/19/19 22:00 05/26/19 11:14 Sodium Chloride Flush Syringe 10 Ml IV 10 ml BID ELIZABETH Administration Sodium Chloride 10 ml 05/19/19 21:58 Sodium Chloride Flush Syringe 10 Ml IV PRN PRN LINE FLUSH Tamsulosin HCl 0.4 mg 05/22/19 12:00 05/26/19 11:12 Flomax PO 0.4 mg QDAY ELIZABETH Administration Vitamin B Complex/Folic Acid 1 each 05/23/19 10:00 05/26/19 11:12 Folbee Plus Cz PO 1 each QDAY ELIZABETH Administration Nutrition/Malnutrition Assess - Dietary Evaluation Nutrition/Malnutrition Findings: Nutrition Notes Start: 05/20/19 14:12 Freq: Status: Active Protocol: Document 05/23/19 14:21 SERGEI (Rec: 05/23/19 14:26 SERGEI [email or web address]) Nutrition Notes Initial or Follow up Reassessment Current Diagnosis Diabetes,Hypertension Other Pertinent Diagnosis Hypoglycemia, dehydration, weakness Current Diet Consistent CHO + Glucerna TID Labs/Tests A1C 11.7 Pertinent Medications D5NS at 42ml/hr, Megace, Vit B complex with Folic acid Height 6 ft 1 in Weight 50.68 kg [place] Body Weight (kg) 83.63 BMI 14.7 Weight change and time frame Current wt obtained from bed scale Weight Status Underweight Subjective/Other Information Pt says, "My appetite would be good if they send me something good to eat". Observed <25% of lunch consumed today. He says he drinks Glucerna shakes though. Currently awaiting placement . No PO intakes documented. Burn Absent Trauma Absent #1 Nutrition Diagnosis Malnutrition Diagnosis Progress(for reassessment Continues documentation) Is patient on ventilator? No Is Patient Ambulatory and/or Out of Bed Yes REE-([place]-ambulatory/OOB) [ 1736.384 [id number]] Kcal/Kg value to use for calculation 45 Approximate Energy Requirements Using 2281 kcal/Kg Calculation Used for Recommendations Kcal/kg Additional Notes Pro needs 1.2-1.5g/k-76g/ day Fluid needs 1ml/kcal Nutrition Intervention Change Diet Order: Continue current diet order; honor food preferences Add Supplement/Snack (indicate name/kcal Glucerna TID /protein ) Provides kCal: 660 Provides Protein (gm) 30 Goal #1 PO intake of meals plus ONS to meet 90-100% energy and pro needs Goal #2 Wt maintenance and/or gain Anticipated Discharge Needs: Continue Glucerna (or equivalent) 2-3 times daily for wt maintenance Follow-Up By: 05/26/19 Additional Comments F/U: intakes (meals/ONS)
[2019-05-27] MEDS ORDERED: LANTUS SUB-Q ONE (08:30)
[2019-05-27] MEDS: HumuLIN R SUB-Q SCH ×3 (08:31→17:14)
[2019-05-27] MEDS: NORVASC PO SCH (09:45)
[2019-05-27] MEDS: HALFPRIN EC PO SCH (09:45)
[2019-05-27] MEDS: SODIUM CHLORIDE FLUSH SYRINGE 10 ML IV SCH (09:45)
[2019-05-27] MEDS: FOLBEE PLUS CZ PO SCH (09:45)
[2019-05-27] MEDS: SENOKOT PO SCH (09:46)
[2019-05-27] MEDS: FLOMAX PO SCH (09:46)
[2019-05-27] MEDS: PEPCID PO SCH (09:46)
[2019-05-27] MEDS: LOPRESSOR PO SCH (09:46)
[2019-05-27] MEDS: MEGACE PO SCH ×2 (09:47→09:54)
[2019-05-27] MEDS: LOVENOX SUB-Q SCH (09:54)
--- NOTE | 2019-05-27 13:02 | Discharge Summary ---
Providers - Providers Date of Admission: 05/19/19 21:58 Date of discharge: 05/27/19 Attending physician: CARLOS ROSA MD 05/19/19 18:39 Consult to Case Management [CONS] Urgent Services Needed at Discharge: [employer] Notified:: awaiting call back Additional Physician Instructions: needs placement 05/19/19 21:58 Consult to Dietitian/Nutrition [CONS] Routine Physician Instructions: Reason For Exam: Reason for Consult: Diet education 05/22/19 12:27 Consult to Physician [CONS] Routine Comment: RAMANA Consulting Provider: TOMMY GAY Physician Instructions: WAS NOTIFIED. Reason For Exam: ESBL E.coli 05/22/19 14:36 Occupational Therapy Evaluate and Treat [CONS] Urgent Comment: Reason For Exam: General Weakness Physical Therapy Evaluation and Treat [CONS] Urgent Comment: Reason For Exam: General Weakness 05/25/19 13:13 Consult to Physician [CONS] Routine Comment: SPOKE WITH DR. RAINEY Consulting Provider: RICHARD RAINEY Physician Instructions: Reason For Exam: acute chf Primary care physician: KATERINA IZQUIERDO Hospitalization Reason for admission: hypoglycemia, generalized weakness, PAPITO, cardiomyopathy Condition: Fair Pertinent studies: CT head Echo Renal ultrasound Chest x-ray Hospital course: Patient is a 68-year-old male with past medical history of hypertension, who was brought to the ER by EMS for complaints of weakness. On arrival to the ER, pt BG was 67, his temp was 92.0F, he was barely responsive and unable to provide medical history. Diabetes mellitus type 2 his hemoglobin A1c of 11.2,Hypoglycemia due to poor oral intake;patient was taking and drinking well. Blood sugar running in the upper 200s. Patient was discharged with insulin, glucometer and other equipments to monitor his blood sugar as the time of discharge. patient was educated about symptoms of hypoglycemia and what to do. Advised for follow-up with PCP Generalized weakness; PT OT evaluated and recommended home health PT Hyponatremia, dehydration; corrected with IV fluids PAPITO (likely due to dehydration) with vasomotor nephropathy; corrected with IV fluids Hypertension; continue was amlodipine Elevated troponin, likely due to PAPITO and CHF; abdomen is consulted and recommended conservative cardiac management Acute metabolic encephalopathy due to hypoglycemia and hyponatremia, POA - resolved Dementia, advanced; supportive care Acute/new diagnosis of CHF with systolic dysfunction, ef ~ 25%, compensated - cardiology recommend conservative cardiac management UTI, ESBL; was treated with IV antibiotics and ID consult appreciated. Patient was hemodynamically stable at the time of discharge. Appropriate medication scripts were given at the time of discharge. Home health was arranged at the time of discharge. Disposition: [id number] HOME UNDER HOME [facility] Time spent for discharge: 32 minutes - Discharge Diagnoses (1) PAPITO (acute kidney injury) Status: Acute (2) Cardiomyopathy Status: Acute (3) Dehydration Status: Acute (4) Elevated troponin level Status: Acute (5) Generalized weakness Status: Acute (6) Hypoglycemia Status: Acute (7) Hypothermia Status: Acute (8) Malnutrition Status: Acute (9) Hypertension Status: Chronic Qualifiers: Hypertension type: essential hypertension Qualified Code(s): I10 - Essential (primary) hypertension Core Measure Documentation - Palliative Care Palliative Care/ Comfort Measures: Not Applicable - Core Measures Any of the following diagnoses?: heart failure - Heart Failure Discharge Requirements PANFILO/ARB for LVSD if EF <40%: No Reason for no PANFILO/ARB: Renal impairment Beta fran at discharge: Yes Exam - Physical Exam Narrative exam: Not in cardiopulmonary distress. The patient is emaciated. Vital signs as documented. Head exam is unremarkable. No scleral icterus . Neck is without jugular venous distension, thyromegaly, or carotid bruits. Lungs are clear to auscultation. Cardiac exam reveals regular rate and Rhythm. Abdominal exam reveals normal bowel sounds, no masses, no organomegaly and no aortic enlargement. Extremities are nonedematous and both femoral and pedal pulses are normal. DIRECTOR OF PSYCHIATRY: Alert and oriented 3. No focal weakness. - Constitutional Vitals: Temp Pulse Resp BP Pulse Ox 97.9 F 66 18 146/68 100 05/27/19 07:32 05/27/19 02:20 05/27/19 07:32 05/27/19 07:32 05/27/19 07:40 Plan Activity: no restrictions Weight Bearing Status: Full Weight Bearing Diet: low salt Follow up with: KATERINA IZQUIERDO MD [Primary Care Provider] - 3-5 Days Prescriptions: Diabetic Supplies,Miscell [Enlite Serter] 1 each MC BID #1 miscell Metoprolol [Lopressor TAB] 12.5 mg PO BID #60 tablet Fosfomycin Tromethamine [Monurol] 3 gm PO Q48H #3 packet amLODIPine [Norvasc] 10 mg PO QDAY #60 tablet Insulin NPH/Regular [NovoLIN 70/30] 10 unit SQ BIDDIAB #1 vial
[2019-05-27 13:51] VITALS: BP 104/86
[2019-05-27] MEDS ORDERED: LANTUS SUB-Q SCH (22:00)
== END 2019-05-27 18:45 | disposition hospice, home (50) | DRG 682 ==
LOC: ED 18:07 → 4A 21:58 → 2B-ACE 05-21 14:11 → UNDODISIN 05-25 18:23
PROVIDERS: ADMIT Internal Medicine; ATTEND Internal Medicine
DX: N17.0 Acute kidney failure with tubular necrosis (principal); G93.41 Metabolic encephalopathy; I50.21 Acute systolic (congestive) heart failure; E87.1 Hypo-osmolality and hyponatremia; N39.0 Urinary tract infection, site not specified; E46 Unspecified protein-calorie malnutrition; E11.649 Type 2 diabetes mellitus with hypoglycemia without coma; F03.90 Unspecified dementia, unspecified severity, without behavioral disturbance, psychotic disturbance, mood disturbance, and anxiety; Z16.12 Extended spectrum beta lactamase (ESBL) resistance; R68.0 Hypothermia, not associated with low environmental temperature; E86.0 Dehydration; B96.1 Klebsiella pneumoniae [K. pneumoniae] as the cause of diseases classified elsewhere; Z79.82 Long term (current) use of aspirin; Z79.899 Other long term (current) drug therapy; Z79.4 Long term (current) use of insulin
CPT/HCPCS: 36415; 70450; 71045; 76770; 80048; 80053; 80061; 81001; 82140; 82550; 82962; 83036; 83735; 84443; 84484; 85025; 85610; 85730; 87040; 87076; 87086; 87186; 93005; 93010; 93306; G0378; J0696; J1335; J1650; J1815; J2185; J2785; J7030; J7042

== ENCOUNTER 2019-06-05 10:17 | Inpatient (IN) | payer MEDICARE ==
[2019-06-05] MEDS ORDERED: NACL 0.9% 500 ML 500 ML IV ONE ×2 (11:03→12:33)
--- NOTE | 2019-06-05 11:20 | Emergency Department Report ---
ED Altered Mental Status HPI - General Chief Complaint: Altered Mental Status Stated Complaint: LOW BLOOD SUGAR Time Seen by Provider: 06/05/19 10:47 Source: EMS Mode of arrival: Stretcher Limitations: Altered Mental Status, Physical Limitation - History of Present Illness Initial Comments: 68-year-old male with history of dementia presents to ED with altered mental status. Patient lives in a senior apartment complex. Son states he checks patient daily. States he last saw patient at 6 PM yesterday and he was his normal self. Per EMS, son states patient is normally able to feed and take care of himself. When son went to the apartment this morning, patient was altered. EMS was called. Accucheck read low. Pt was given 150 cc of D10 because EMS did not have D50 available. Upon ED arrival repeat accucheck is 125. Patient is awake but is nonverbal and not following commands. Patient recently discharged from this facility 9 days ago w/ diagnosis of malnutrition, hypothermia, PAPITO, cardiomyopathy (EF 25%), dehydration. MD Complaint: altered mental status -: unknown Severity: severe Context: history of similar presen Treatments Prior to Arrival: glucose - Related Data Home Medications Medication Instructions Recorded Confirmed Last Taken Cholestyramine/Aspartame 239.4 mg PO TID 05/20/19 06/05/19 Unknown [Cholestyramine Light Powder] Famotidine [Pepcid] 20 mg PO BID 05/20/19 06/05/19 Unknown Ferrous Gluconate [Fergon 240 MG 240 mg PO BID 05/20/19 06/05/19 Unknown tab] Finasteride [Proscar] 5 mg PO DAILY 05/20/19 06/05/19 Unknown Mirtazapine [Remeron 15mg TAB] 15 mg PO QHS 05/20/19 06/05/19 Unknown Tamsulosin [Flomax] 0.4 mg PO QDAY 05/20/19 06/05/19 Unknown Vitamin B Complex [B Complex] 1 each PO DAILY 05/20/19 06/05/19 Unknown Previous Rx's Medication Instructions Recorded Last Taken Type Aspirin EC 81 mg PO QDAY tablet 05/22/19 Unknown Rx Insulin Regular, Human [HumuLIN R] 0 units SUB-Q ACHS units 05/22/19 Unknown Rx Megestrol [Megace] 400 mg PO QDAY oral.liqd 05/22/19 Unknown Rx Insulin NPH/Regular [NovoLIN 70/30] 10 unit SQ BIDDIAB #1 vial 05/27/19 Unknown Rx Metoprolol [Lopressor TAB] 12.5 mg PO BID #60 tablet 05/27/19 Unknown Rx amLODIPine [Norvasc] 10 mg PO QDAY #60 tablet 05/27/19 Unknown Rx Allergies Allergy/AdvReac Type Severity Reaction Status Date / Time No Known Allergies Allergy Verified 05/19/19 22:08 ED Review of Systems ROS: Stated complaint: LOW BLOOD SUGAR Other details as noted in HPI Comment: Unobtainable due to pts medical conditions ED Past Medical Hx - Past Medical History Previous Medical History?: Yes Hx Hypertension: Yes Hx Dementia: Yes Additional medical history: Dementia - Social History Smoking Status: Unknown if ever smoked - Medications Home Medications: Home Medications Medication Instructions Recorded Confirmed Last Taken Type Cholestyramine/Aspartame 239.4 mg PO TID 05/20/19 06/05/19 Unknown History [Cholestyramine Light Powder] Famotidine [Pepcid] 20 mg PO BID 05/20/19 06/05/19 Unknown History Ferrous Gluconate [Fergon 240 MG 240 mg PO BID 05/20/19 06/05/19 Unknown History tab] Finasteride [Proscar] 5 mg PO DAILY 05/20/19 06/05/19 Unknown History Mirtazapine [Remeron 15mg TAB] 15 mg PO QHS 05/20/19 06/05/19 Unknown History Tamsulosin [Flomax] 0.4 mg PO QDAY 05/20/19 06/05/19 Unknown History Vitamin B Complex [B Complex] 1 each PO DAILY 05/20/19 06/05/19 Unknown History Aspirin EC 81 mg PO QDAY tablet 05/22/19 06/05/19 Unknown Rx Insulin Regular, Human [HumuLIN R] 0 units SUB-Q ACHS units 05/22/19 06/05/19 Unknown Rx Megestrol [Megace] 400 mg PO QDAY oral.liqd 05/22/19 06/05/19 Unknown Rx Insulin NPH/Regular [NovoLIN 70/30] 10 unit SQ BIDDIAB #1 vial 05/27/19 06/05/19 Unknown Rx Metoprolol [Lopressor TAB] 12.5 mg PO BID #60 tablet 05/27/19 06/05/19 Unknown Rx amLODIPine [Norvasc] 10 mg PO QDAY #60 tablet 05/27/19 06/05/19 Unknown Rx ED Physical Exam - General Limitations: Altered Mental Status, Physical Limitation General appearance: alert, cachectic - Head Head exam: Present: atraumatic, normocephalic - Eye Eye exam: Present: normal appearance, PERRL, other (pt appears to have rightward gaze preference) - ENT ENT exam: Present: mucous membranes dry - Neck Neck exam: Present: normal inspection - Respiratory Respiratory exam: Present: rhonchi. Absent: respiratory distress - Cardiovascular Cardiovascular Exam: Present: regular rate, normal rhythm - GI/Abdominal GI/Abdominal exam: Present: soft, other (scaphoid abdomen). Absent: distended - Extremities Exam Extremities exam: Present: other (abrasions of various stages to knees, elbows, right buttock, ankle) - Neurological Exam Neurological exam: Present: alert, altered, other (pt is alert, with eyes open, moving all extremities, not following commands, pt is nonverbal, ) - Skin Skin exam: Present: warm, dry, abrasion - Assessment Assessment Interval: Baseline - Level of Consciousness 1a. Level of Consciousness: arousable/minor stimuli - LOC Questions 1b. LOC Questions: aphasic - LOC Command 1c. LOC Commands: performs no tasks correctly - Best Gaze 2. Best Gaze: partial gaze palsy - Visual 3. Visual: no visual loss - Facial Palsy 4. Facial Palsy: normal symmetrical movement - Motor Arm 5a. Motor Arm Left: drift 5b. Motor Arm Right: drift - Motor Leg 6a. Motor Leg Left: some gravity effort 6b. Motor Leg Right: some gravity effort - Limb Ataxia 7. Limb Ataxia: absent - Sensory 8. Sensory: normal - Best Language 9. Best Language: mute/global aphasia - Dysarthria 10. Dysarthria: mute/anarrthric - Extinction and Inattention 11. Extinction/Inattention: visual/tactile inattention - Scoring Total Score: 18 Stroke Severity: Moderate to Severe Stroke ED Course Vital Signs 06/05/19 06/05/19 06/05/19 10:39 11:00 11:55 Temperature 89.0 F L Pulse Rate 84 75 65 Respiratory 22 9 L 10 L Rate Blood Pressure 141/77 109/76 116/80 O2 Sat by Pulse 95 100 Oximetry 06/05/19 06/05/19 06/05/19 12:01 12:31 12:37 Temperature 89.2 F L Pulse Rate 70 68 Respiratory 9 L 9 L Rate Blood Pressure 116/80 122/73 O2 Sat by Pulse 96 92 Oximetry 06/05/19 06/05/19 06/05/19 13:01 13:31 14:01 Temperature Pulse Rate 66 67 70 Respiratory 11 L 10 L 10 L Rate Blood Pressure 109/76 124/71 117/71 O2 Sat by Pulse Oximetry 06/05/19 14:19 Temperature 91.8 F L Pulse Rate Respiratory Rate Blood Pressure O2 Sat by Pulse Oximetry - Consultations Consultation #1: 06/05/19 12:57 Spoke w/ neurologist, Dr Medina, states likely metabolic encephalopathy. Unable to perform CTA due to renal function. Advises admission w/ MRI. - Lab Data Result diagrams: 06/05/19 11:11 06/05/19 11:11 Lab Results 06/05/19 06/05/19 06/05/19 Range/Units 10:24 11:11 11:11 WBC 5.0 (4.5-11.0) K/mm3 RBC 3.82 (3.65-5.03) M/mm3 Hgb 11.2 L (11.8-15.2) gm/dl Hct 33.2 L (35.5-45.6) % MCV 87 (84-94) fl MCH 29 (28-32) pg MCHC 34 (32-34) % RDW 17.3 H (13.2-15.2) % Plt Count 243 (140-440) K/mm3 Lymph % (Auto) 17.8 (13.4-35.0) % Trego % (Auto) 5.9 (0.0-7.3) % Eos % (Auto) 0.1 (0.0-4.3) % Baso % (Auto) 0.2 (0.0-1.8) % Lymph # 0.9 L (1.2-5.4) K/mm3 Trego # 0.3 (0.0-0.8) K/mm3 Eos # 0.0 (0.0-0.4) K/mm3 Baso # 0.0 (0.0-0.1) K/mm3 Seg Neutrophils % 76.0 H (40.0-70.0) % Seg Neutrophils # 3.8 (1.8-7.7) K/mm3 APTT 37.7 H (24.2-36.6) Sec. Sodium (137-145) mmol/L Potassium (3.6-5.0) mmol/L Chloride (98-107) mmol/L Carbon Dioxide (22-30) mmol/L Anion Gap mmol/L BUN (9-20) mg/dL Creatinine (0.8-1.5) mg/dL Estimated GFR ml/min BUN/Creatinine Ratio % Glucose (75-100) mg/dL POC Glucose 125 H (70-105) Lactic Acid (0.7-2.0) mmol/L Calcium (8.4-10.2) mg/dL Total Bilirubin (0.1-1.2) mg/dL AST (5-40) units/L ALT (7-56) units/L Alkaline Phosphatase (35-129) units/L Troponin T (0.00-0.029) ng/mL NT-Pro-B Natriuret Pep (0-900) pg/mL Total Protein (6.3-8.2) g/dL Albumin (3.9-5) g/dL Albumin/Globulin Ratio % Triglycerides (2-149) mg/dL Cholesterol (50-199) mg/dL LDL Cholesterol Direct (50-130) mg/dL HDL Cholesterol (40-59) mg/dL Cholesterol/HDL Ratio % Urine Color (Yellow) Urine Turbidity (Clear) Urine pH (5.0-7.0) Ur Specific Lupton (1.003-1.030) Urine Protein (Negative) mg/dL Urine Glucose (UA) (Negative) mg/dL Urine Ketones (Negative) mg/dL Urine Blood (Negative) Urine Nitrite (Negative) Urine Bilirubin (Negative) Urine Urobilinogen (<2.0) mg/dL Ur Leukocyte Esterase (Negative) Urine WBC (Auto) (0.0-6.0) /HPF Urine RBC (Auto) (0.0-6.0) /HPF Urine Bacteria (Auto) (Negative) /HPF Urine Mucus /HPF 06/05/19 06/05/19 06/05/19 Range/Units 11:11 11:11 11:11 WBC (4.5-11.0) K/mm3 RBC (3.65-5.03) M/mm3 Hgb (11.8-15.2) gm/dl Hct (35.5-45.6) % MCV (84-94) fl MCH (28-32) pg MCHC (32-34) % RDW (13.2-15.2) % Plt Count (140-440) K/mm3 Lymph % (Auto) (13.4-35.0) % Trego % (Auto) (0.0-7.3) % Eos % (Auto) (0.0-4.3) % Baso % (Auto) (0.0-1.8) % Lymph # (1.2-5.4) K/mm3 Trego # (0.0-0.8) K/mm3 Eos # (0.0-0.4) K/mm3 Baso # (0.0-0.1) K/mm3 Seg Neutrophils % (40.0-70.0) % Seg Neutrophils # (1.8-7.7) K/mm3 APTT (24.2-36.6) Sec. Sodium 147 H (137-145) mmol/L Potassium 4.3 (3.6-5.0) mmol/L Chloride 115.9 H (98-107) mmol/L Carbon Dioxide 18 L (22-30) mmol/L Anion Gap 17 mmol/L BUN 45 H (9-20) mg/dL Creatinine 2.4 H (0.8-1.5) mg/dL Estimated GFR 33 ml/min BUN/Creatinine Ratio 19 % Glucose 118 H (75-100) mg/dL POC Glucose (70-105) Lactic Acid 0.50 L (0.7-2.0) mmol/L Calcium 10.1 (8.4-10.2) mg/dL Total Bilirubin 0.20 (0.1-1.2) mg/dL AST 27 (5-40) units/L ALT 48 (7-56) units/L Alkaline Phosphatase 147 H (35-129) units/L Troponin T 0.047 H (0.00-0.029) ng/mL NT-Pro-B Natriuret Pep 446.0 (0-900) pg/mL Total Protein 6.8 (6.3-8.2) g/dL Albumin 3.5 L (3.9-5) g/dL Albumin/Globulin Ratio 1.1 % Triglycerides 60 (2-149) mg/dL Cholesterol 181 (50-199) mg/dL LDL Cholesterol Direct 68 (50-130) mg/dL HDL Cholesterol 115 H (40-59) mg/dL Cholesterol/HDL Ratio 1.57 % Urine Color (Yellow) Urine Turbidity (Clear) Urine pH (5.0-7.0) Ur Specific Lupton (1.003-1.030) Urine Protein (Negative) mg/dL Urine Glucose (UA) (Negative) mg/dL Urine Ketones (Negative) mg/dL Urine Blood (Negative) Urine Nitrite (Negative) Urine Bilirubin (Negative) Urine Urobilinogen (<2.0) mg/dL Ur Leukocyte Esterase (Negative) Urine WBC (Auto) (0.0-6.0) /HPF Urine RBC (Auto) (0.0-6.0) /HPF Urine Bacteria (Auto) (Negative) /HPF Urine Mucus /HPF 06/05/19 06/05/19 Range/Units 11:36 13:21 WBC (4.5-11.0) K/mm3 RBC (3.65-5.03) M/mm3 Hgb (11.8-15.2) gm/dl Hct (35.5-45.6) % MCV (84-94) fl MCH (28-32) pg MCHC (32-34) % RDW (13.2-15.2) % Plt Count (140-440) K/mm3 Lymph % (Auto) (13.4-35.0) % Trego % (Auto) (0.0-7.3) % Eos % (Auto) (0.0-4.3) % Baso % (Auto) (0.0-1.8) % Lymph # (1.2-5.4) K/mm3 Trego # (0.0-0.8) K/mm3 Eos # (0.0-0.4) K/mm3 Baso # (0.0-0.1) K/mm3 Seg Neutrophils % (40.0-70.0) % Seg Neutrophils # (1.8-7.7) K/mm3 APTT (24.2-36.6) Sec. Sodium (137-145) mmol/L Potassium (3.6-5.0) mmol/L Chloride (98-107) mmol/L Carbon Dioxide (22-30) mmol/L Anion Gap mmol/L BUN (9-20) mg/dL Creatinine (0.8-1.5) mg/dL Estimated GFR ml/min BUN/Creatinine Ratio % Glucose (75-100) mg/dL POC Glucose 109 H (70-105) Lactic Acid (0.7-2.0) mmol/L Calcium (8.4-10.2) mg/dL Total Bilirubin (0.1-1.2) mg/dL AST (5-40) units/L ALT (7-56) units/L Alkaline Phosphatase (35-129) units/L Troponin T (0.00-0.029) ng/mL NT-Pro-B Natriuret Pep (0-900) pg/mL Total Protein (6.3-8.2) g/dL Albumin (3.9-5) g/dL Albumin/Globulin Ratio % Triglycerides (2-149) mg/dL Cholesterol (50-199) mg/dL LDL Cholesterol Direct (50-130) mg/dL HDL Cholesterol (40-59) mg/dL Cholesterol/HDL Ratio % Urine Color Yellow (Yellow) Urine Turbidity Slightly-cloudy (Clear) Urine pH 6.0 (5.0-7.0) Ur Specific Lupton 1.012 (1.003-1.030) Urine Protein 30 mg/dl (Negative) mg/dL Urine Glucose (UA) Neg (Negative) mg/dL Urine Ketones Neg (Negative) mg/dL Urine Blood Mod (Negative) Urine Nitrite Neg (Negative) Urine Bilirubin Neg (Negative) Urine Urobilinogen < 2.0 (<2.0) mg/dL Ur Leukocyte Esterase Mod (Negative) Urine WBC (Auto) 14.0 H (0.0-6.0) /HPF Urine RBC (Auto) 3.0 (0.0-6.0) /HPF Urine Bacteria (Auto) 2+ (Negative) /HPF Urine Mucus Few /HPF - EKG Data -: EKG Interpreted by Pa EKG shows normal: sinus rhythm, axis, intervals, QRS complexes, ST-T waves Rate: normal Interpretation: no acute changes - Radiology Data Radiology results: report reviewed, image reviewed - Medical Decision Making 68 yo M presents to ED with altered mental status, hypoglycemia. Pt given D10 by EMS, glucose normal upon ED arrival, however, pt remains altered. Pt awake, turns head to voice, moves all extremities, however, does not follow commands, does not speak. Pt has moaned occasionally. Eyes seem to not cross midline, rightward preference. Pt has no new abnormalities on CT Head, only chronic findings. Seen and evaluated by neurologist, who states he is having technical difficulties and is unable to place his note in the chart. However, believes symptoms related to metabolic encephalopathy. Recommends inpatient MRI. Pt is hypothermic, Ryan hugger currently in place. Lactic acid and WBCs normal. Li jade not septic. Pt has been normotensive, receiving gentle IV fulid boluses of 500cc at a time given diagnosis of CHF w/ 25% EF. Pt appears to be dehydrated, with acute renal failure and hypernatremia compared to normal labs 10 days ago. EKG shows no ST changes, troponin mildly elevated at 0.047. This could be due to his renal insufficiency. CXR normal. Repeat accuchecks have been normal. - Differential Diagnosis hypoglycemia, infection, CVA, electrolyte abnormality, dehydration Critical Care Time: Yes Critical care time in (mins) excluding proc time.: 35 Critical care attestation.: If time is entered above; I have spent that time in minutes in the direct care of this critically ill patient, excluding procedure time. Critical Care Time: 35 minutes ED Disposition Clinical Impression: Hypothermia, Hypoglycemia, Dehydration, Acute renal failure, Hypernatremia, Encephalopathy acute Disposition: DC09 OP ADMIT IP TO THIS HOSP Is pt being admited?: Yes Condition: Stable Time of Disposition: 12:59
[2019-06-05 11:30] LABS: Basophils % (Auto) 0.2 % (0.0-1.8); Eosinophils % (Auto) 0.1 % (0.0-4.3); Hematocrit 33.2 % (35.5-45.6); Hemoglobin 11.2 gm/dl (11.8-15.2); Lymphocytes # (Auto) 0.9 K/mm3 (1.2-5.4); Lymphocytes % (Auto) 17.8 % (13.4-35.0); Mean Corpuscular HGB Conc 34 % (32-34); Mean Corpuscular Volume 87 fl (84-94); Monocytes # (Auto) 0.3 K/mm3 (0.0-0.8); Monocytes % (Auto) 5.9 % (0.0-7.3); Platelet Count 243 K/mm3 (140-440); Red Blood Count 3.82 M/mm3 (3.65-5.03); Red Cell Distribution Width 17.3 % (13.2-15.2)
--- NOTE | 2019-06-05 11:44 | XRay Report ---
CHEST 1 VIEW 1117 INDICATION / CLINICAL INFORMATION: AMS. COMPARISON: 05/19/2019 FINDINGS: SUPPORT DEVICES: None HEART / MEDIASTINUM: No significant abnormality. LUNGS / PLEURA: No significant pulmonary or pleural abnormality. No pneumothorax. ADDITIONAL FINDINGS: No significant additional findings. IMPRESSION: No significant acute abnormality Signer Name: Clement Khan MD Signed: 06/05/2019 11:40 AM Workstation Name: [id number]
[2019-06-05 11:49] LABS: Albumin 3.5 g/dL (3.9-5); Calcium 10.1 mg/dL (8.4-10.2)
[2019-06-05 11:59] LABS: Chol/HDL Ratio 1.57 %
--- NOTE | 2019-06-05 12:12 | Cat Scan Report ---
CT head/brain wo con INDICATION / CLINICAL INFORMATION: 68 years Male; AMS. TECHNIQUE: Routine CT head without contrast. All CT scans at this location are performed using CT dos e reduction for ALARA by means of automated exposure control. COMPARISON: 05/19/2019 FINDINGS: BRAIN / INTRACRANIAL CONTENTS: Craniotomy site is seen in the posterior frontal region on the left. Encephalomalacia is seen in the adjacent left frontal lobe. 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 These findings are not significantly changed from prior. Otherwise, no acute hemorrhage, mass effect, midline shift, hydrocephalus, or acute, large territoria l infarct. Mild cerebral and cerebellar atrophy. There are mild areas of decreased attenuation in the white matter of the cerebral hemispheres. These are nonspecific findings and may be related to microangiopathy (hypertension, diabetes, atheroscleros is), given the patient's age. It might be difficult to evaluate for small areas of ischemia without d iffusion imaging by MRI. CRANIOCERVICAL JUNCTION: No significant abnormality. ORBITS: No significant abnormality of visualized orbits. SINUSES / MASTOIDS: Mild mucosal thickening seen in the mastoids-right greater than left. 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 Please clinically correlate. The opacification extends into the anteromedial left ethmoidal air cells. ADDITIONAL FINDINGS: Minimal atherosclerotic disease is seen in the anterior circulation. IMPRESSION: 1. No focal mass, hemorrhage, hydrocephalus, or acute, large territorial infarct. Signer Name: Jose Stovall MD, III Signed: 06/05/2019 12:08 PM Workstation Name: [id number]
--- NOTE | 2019-06-05 13:20 | History and Physical Report ---
History of Present Illness Chief complaint: He is confused, and not acting like himself today History of present illness: 68 YO Male with Dementia, Severe Malnutrition, GERD, HTN presents to ED for evaluation. Pt is stuporous and unable to provide history. Pt history provided by his son. As per son, the patient has experienced progressive weakness over the past 3 weeks, but is able to care for himself. Pt was in his usual state of health at 1800hrs yesterday. Pt was found by his son today to be confused, unable to stand, nonverbal and not following commands. EMS notified and upon arrival and upon arrival the patient was found to be in distress. Pt transported to [facility]. Pt seen and evaluated in ED and found to have Metabolic Encephalopathy, Acute Kidney Injury, Acidosis, Severe Malnutrition, UTI, and Volume Depletion. Pt admitted to [facility] and treated with supportive care. Case management consulted for D/C Planning/Placement due to patient inability to independently conduct activities of daily living at this time. Past History Past Medical History: GERD, hypertension, other ([place], Malnutrition) Past Surgical History: No surgical history Social history: Family history: no significant family history (reviewed) Medications and Allergies Allergies Allergy/AdvReac Type Severity Reaction Status Date / Time No Known Allergies Allergy Verified 05/19/19 22:08 Home Medications Medication Instructions Recorded Confirmed Last Taken Type Cholestyramine/Aspartame 239.4 mg PO TID 05/20/19 06/05/19 Unknown History [Cholestyramine Light Powder] Famotidine [Pepcid] 20 mg PO BID 05/20/19 06/05/19 Unknown History Ferrous Gluconate [Fergon 240 MG 240 mg PO BID 05/20/19 06/05/19 Unknown History tab] Finasteride [Proscar] 5 mg PO DAILY 05/20/19 06/05/19 Unknown History Mirtazapine [Remeron 15mg TAB] 15 mg PO QHS 05/20/19 06/05/19 Unknown History Tamsulosin [Flomax] 0.4 mg PO QDAY 05/20/19 06/05/19 Unknown History Vitamin B Complex [B Complex] 1 each PO DAILY 05/20/19 06/05/19 Unknown History Aspirin EC 81 mg PO QDAY tablet 05/22/19 06/05/19 Unknown Rx Insulin Regular, Human [HumuLIN R] 0 units SUB-Q ACHS units 05/22/19 06/05/19 Unknown Rx Megestrol [Megace] 400 mg PO QDAY oral.liqd 05/22/19 06/05/19 Unknown Rx Insulin NPH/Regular [NovoLIN 70/30] 10 unit SQ BIDDIAB #1 vial 05/27/19 06/05/19 Unknown Rx Metoprolol [Lopressor TAB] 12.5 mg PO BID #60 tablet 05/27/19 06/05/19 Unknown Rx amLODIPine [Norvasc] 10 mg PO QDAY #60 tablet 05/27/19 06/05/19 Unknown Rx Review of Systems ROS unobtainable: due to mental status Exam - Constitutional Vitals: Temp Pulse Resp BP Pulse Ox 89.2 F L 68 9 L 122/73 92 06/05/19 12:37 06/05/19 12:31 06/05/19 12:31 06/05/19 12:31 06/05/19 12:31 General appearance: Present: mild distress, cachectic - EENT Eyes: Present: miosis ENT: hearing decreased - Neck Neck: Present: supple, normal ROM - Respiratory Respiratory effort: normal Respiratory: bilateral: CTA - Cardiovascular Heart Sounds: Present: S1 & S2. Absent: rub, click - Extremities Extremities: pulses symmetrical, No edema Peripheral Pulses: within normal limits - Abdominal General gastrointestinal: Present: soft, non-tender, non-distended, normal bowel sounds Male genitourinary: Present: normal - Integumentary Integumentary: Present: clear, dry, clammy, decreased turgor - Musculoskeletal Musculoskeletal: generalized weakness - Psychiatric Psychiatric: no appropriate mood/affect, no intact judgment & insight, no memory intact - Neurologic Neurologic: CNII-XII intact, no focal deficits, moves all extremities, no gait normal Results - Labs CBC & Chem 7: 06/05/19 11:11 06/05/19 11:11 Labs: Abnormal lab results 06/05/19 06/05/19 06/05/19 Range/Units 11:11 11:11 11:11 Hgb 11.2 L (11.8-15.2) gm/dl Hct 33.2 L (35.5-45.6) % RDW 17.3 H (13.2-15.2) % Lymph # 0.9 L (1.2-5.4) K/mm3 Seg Neutrophils % 76.0 H (40.0-70.0) % APTT 37.7 H (24.2-36.6) Sec. Sodium 147 H (137-145) mmol/L Chloride 115.9 H (98-107) mmol/L Carbon Dioxide 18 L (22-30) mmol/L BUN 45 H (9-20) mg/dL Creatinine 2.4 H (0.8-1.5) mg/dL Glucose 118 H (75-100) mg/dL POC Glucose (70-105) Lactic Acid (0.7-2.0) mmol/L Alkaline Phosphatase 147 H (35-129) units/L Troponin T 0.047 H (0.00-0.029) ng/mL Albumin 3.5 L (3.9-5) g/dL HDL Cholesterol 115 H (40-59) mg/dL 06/05/19 06/05/19 Range/Units 11:11 11:36 Hgb (11.8-15.2) gm/dl Hct (35.5-45.6) % RDW (13.2-15.2) % Lymph # (1.2-5.4) K/mm3 Seg Neutrophils % (40.0-70.0) % APTT (24.2-36.6) Sec. Sodium (137-145) mmol/L Chloride (98-107) mmol/L Carbon Dioxide (22-30) mmol/L BUN (9-20) mg/dL Creatinine (0.8-1.5) mg/dL Glucose (75-100) mg/dL POC Glucose 109 H (70-105) Lactic Acid 0.50 L (0.7-2.0) mmol/L Alkaline Phosphatase (35-129) units/L Troponin T (0.00-0.029) ng/mL Albumin (3.9-5) g/dL HDL Cholesterol (40-59) mg/dL Assessment and Plan - Patient Problems (1) Severe malnutrition Current Visit: Yes Status: Acute Plan to address problem: encourage increased protein intake when awake/alert only, dietary supplementation. (2) Metabolic encephalopathy Current Visit: Yes Status: Acute Plan to address problem: CT Head, neuro check, aspiration precautions, fall precautions, supportive care, urinalysis, thyroid panel (3) Acidosis Current Visit: Yes Status: Acute Plan to address problem: IVF resuscitation therapy, repeat bmp. (4) Volume depletion Current Visit: Yes Status: Acute Plan to address problem: IVF resuscitation therapy, monitor uop q shift, monitor serum creatnine. (5) UTI (urinary tract infection) Current Visit: Yes Status: Acute Qualifiers: Encounter type: initial encounter Plan to address problem: IV antibiotic therapy, urinalysis, CBC, CMP, supportive care. (6) Advance care planning Current Visit: Yes Status: Acute Plan to address problem: 30 minutes spent discussing care plan. Case management consulted. Pt likely to require placement to [facility]/S[facility]. (7) Debility Current Visit: Yes Status: Acute Plan to address problem: PT consulted, supportive care, fall precautions. (8) PAPITO (acute kidney injury) Current Visit: No Status: Acute Plan to address problem: IVF resuscitation therapy, monitor uop q shift, nephrology consulted, urine electrolytes. (9) DVT prophylaxis Current Visit: Yes Status: Acute Plan to address problem: SCD to BLE while in bed.
[2019-06-05 13:40] LABS: Bacteria,Urine 2+ /HPF (Negative); Bilirubin,Urine NEG (Negative); Blood,Urine MOD (Negative); Color,Urine Yellow (Yellow); Mucus,Urine FEW /HPF; Urobilinogen,Urine < 2.0 mg/dL (<2.0)
[2019-06-05 13:59] LABS: Free T4 (Free Thyroxine) 1.04 ng/dL (0.76-1.46)
[2019-06-05] MEDS ORDERED: NACL 0.45% 1000 ML 1,000 ML IV SCH (14:00)
[2019-06-05] MEDS ORDERED: TYLENOL PO PRN (14:00)
[2019-06-05] MEDS ORDERED: ZOFRAN IV PRN (14:00)
[2019-06-05] MEDS ORDERED: PROVENTIL IH PRN (14:00)
[2019-06-05] MEDS: D50W (25GM) Syringe IV PRN (19:15)
[2019-06-05] MEDS ORDERED: GLUCAGEN IV STA (19:46)
[2019-06-05] MEDS ORDERED: INSTA-GLUCOSE GEL PO STA (19:47)
[2019-06-05] MEDS ORDERED: [UNRECOGNIZED DRUG - OTHER] PO SCH (20:00)
[2019-06-05] MEDS ORDERED: CHOLESTYRAMINE PO SCH (20:00)
[2019-06-05] MEDS: D5W 1,000 ML IV SCH (20:04)
--- NOTE | 2019-06-05 20:36 | Procedure Note ---
Date of procedure: 06/05/19 Pre-op diagnosis: Encephalopathy, Hypoglycemia Post-op diagnosis: same Procedure: Right Femoral Vein Central Line Placement under ultrasound guidance. Pt prepped and draped in the usual sterile fashion. Timeout taken to identify correct procedure, patient, and operative site. Ultrasound used to localize the RFV without difficulty. Local anesthesia obtained with lidocaine 1%. A seeker needle used to access the RFV underultrasound guidance. A guidewire was then passed into RFV and the seeker needle removed over the guidewire. A scalpel was used to incise the skin, and a dilator passed over the guidewire and then removed. A triple lumen catheter was advanced into the RFV and the guidewire removed. Triple lumen catheter was sewn in place. A biopatch was placed at the insertion site. All 3 ports flush and draw with ease. EBL: Minimal complications: None Sepcimen: none Anesthesia: local Surgeon: MILLI PRITCHARD Estimated blood loss: minimal Pathology: none Condition: stable Disposition: floor
[2019-06-05] MEDS: HumaLOG SUB-Q SCH ×2 (21:51→22:49)
[2019-06-05] MEDS ORDERED: FERROUS GLUCONATE 240 MG PO SCH (22:00)
[2019-06-05] MEDS: ROCEPHIN/NS 1 GM/50 ML 1 GM/50 ML BAG IV SCH (22:01)
[2019-06-05] MEDS: REMERON PO SCH (22:01)
[2019-06-05] MEDS: PEPCID PO SCH (22:01)
[2019-06-05] MEDS: FERGON PO SCH (22:02)
[2019-06-05] MEDS: QUESTRAN PO SCH (22:48)
[2019-06-05] MEDS: HEPARIN SUB-Q SCH (22:57)
[2019-06-05] MEDS: SODIUM CHLORIDE FLUSH SYRINGE 10 ML IV SCH (22:57)
[2019-06-06] MEDS: D5W 1,000 ML IV SCH (05:16)
[2019-06-06 05:30] LABS: Basophils # (Auto) 0.1 K/mm3 (0.0-0.1); Basophils % (Auto) 1.3 % (0.0-1.8); Eosinophils % (Auto) 0.4 % (0.0-4.3); Hematocrit 38.4 % (35.5-45.6); Hemoglobin 12.3 gm/dl (11.8-15.2); Lymphocytes # (Auto) 1.2 K/mm3 (1.2-5.4); Lymphocytes % (Auto) 19.8 % (13.4-35.0); Mean Corpuscular HGB Conc 32 % (32-34); Mean Corpuscular Volume 89 fl (84-94); Monocytes # (Auto) 0.4 K/mm3 (0.0-0.8); Monocytes % (Auto) 6.7 % (0.0-7.3); Red Cell Distribution Width 18.1 % (13.2-15.2)
[2019-06-06 05:31] LABS: Platelet Count 263 K/mm3 (140-440)
[2019-06-06 06:07] LABS: Albumin 3.5 g/dL (3.9-5); Calcium 9.9 mg/dL (8.4-10.2)
[2019-06-06] MEDS: HumaLOG SUB-Q SCH ×4 (08:20→22:46)
[2019-06-06] MEDS: QUESTRAN PO SCH ×3 (08:49→20:34)
[2019-06-06] MEDS: ROCEPHIN/NS 1 GM/50 ML 1 GM/50 ML BAG IV SCH (09:05)
[2019-06-06] MEDS: SODIUM CHLORIDE FLUSH SYRINGE 10 ML IV SCH ×2 (09:05→22:47)
[2019-06-06] MEDS: HEPARIN SUB-Q SCH ×2 (09:05→22:46)
[2019-06-06] MEDS: ALLBEE WITH C PO SCH (09:06)
[2019-06-06] MEDS: PEPCID PO SCH (09:06)
[2019-06-06] MEDS: HALFPRIN EC PO SCH (09:06)
[2019-06-06] MEDS: FLOMAX PO SCH (09:06)
[2019-06-06] MEDS: PROSCAR PO SCH (09:06)
[2019-06-06] MEDS: FERGON PO SCH ×2 (09:06→22:46)
[2019-06-06] MEDS ORDERED: NON-FORMULARY (Vitamin B Complex [B Complex] 1 EACH) PO SCH (10:00)
--- NOTE | 2019-06-06 11:54 | Consultation ---
History of Present Illness - Reason for Consult Consult date: 06/06/19 acute renal failure, hyperkalemia - History of Present Illness The patient is 68 YO male with history significant for DM, HTN, HLD, Dementia, GERD and /BPH who presented from home to [facility] for evaluation of progressive weakness over the past 3 weeks. Patient was not able to provide any history and there was no family member at the bedside. Patient unable to care for himself. Pt was seen and evaluated in ED and found to be malnurouished, hypothermia, Encephalopathy, Acute Kidney Injury and UTI. Pt was admitted to [facility] for further management. Creatinine is 2.3, bicarb 13 and K 5.2. Nephrology was consulted for further evaluation. Past History Past Medical History: GERD, hypertension, hyperlipidemia, other ([place]enita, Malnutrition) Past Surgical History: No surgical history Social history: Family history: no significant family history (reviewed) Medications and Allergies Allergies Allergy/AdvReac Type Severity Reaction Status Date / Time No Known Allergies Allergy Verified 05/19/19 22:08 Home Medications Medication Instructions Recorded Confirmed Last Taken Type Cholestyramine/Aspartame 239.4 mg PO TID 05/20/19 06/05/19 Unknown History [Cholestyramine Light Powder] Famotidine [Pepcid] 20 mg PO BID 05/20/19 06/05/19 Unknown History Ferrous Gluconate [Fergon 240 MG 240 mg PO BID 05/20/19 06/05/19 Unknown History tab] Finasteride [Proscar] 5 mg PO DAILY 05/20/19 06/05/19 Unknown History Mirtazapine [Remeron 15mg TAB] 15 mg PO QHS 05/20/19 06/05/19 Unknown History Tamsulosin [Flomax] 0.4 mg PO QDAY 05/20/19 06/05/19 Unknown History Vitamin B Complex [B Complex] 1 each PO DAILY 05/20/19 06/05/19 Unknown History Aspirin EC 81 mg PO QDAY tablet 05/22/19 06/05/19 Unknown Rx Insulin Regular, Human [HumuLIN R] 0 units SUB-Q ACHS units 05/22/19 06/05/19 U nknown Rx Megestrol [Megace] 400 mg PO QDAY oral.liqd 05/22/19 06/05/19 Unknown Rx Insulin NPH/Regular [NovoLIN 70/30] 10 unit SQ BIDDIAB #1 vial 05/27/19 06/05/19 Unknown Rx Metoprolol [Lopressor TAB] 12.5 mg PO BID #60 tablet 05/27/19 06/05/19 Unknown Rx amLODIPine [Norvasc] 10 mg PO QDAY #60 tablet 05/27/19 06/05/19 Unknown Rx Active Meds: Active Medications Acetaminophen (Tylenol) 650 mg PO Q4H PRN PRN Reason: Pain MILD(1-3)/Fever >100.5/POLANCO Albuterol (Proventil) 2.5 mg IH Q4HRT PRN PRN Reason: Shortness Of Breath Aspirin (Halfprin Ec) 81 mg PO QDAY [facility] Last Admin: 06/06/19 09:06 Dose: Not Given Documented by: Cholestyramine Resin (Questran) 4 gm PO TID [facility] Last Admin: 06/06/19 08:49 Dose: Not Given Documented by: Dextrose (D50w (25gm) Syringe) 50 ml IV PRN PRN PRN Reason: Hypoglycemia Last Admin: 06/05/19 19:15 Dose: 50 ml Documented by: Famotidine (Pepcid) 20 mg PO DAILY [facility] Last Admin: 06/06/19 09:06 Dose: Not Given Documented by: Ferrous Gluconate (Fergon) 324 mg PO BID [facility] Last Admin: 06/06/19 09:06 Dose: Not Given Documented by: Finasteride (Proscar) 5 mg PO DAILY [facility] Last Admin: 06/06/19 09:06 Dose: Not Given Documented by: Heparin Sodium (Porcine) (Heparin) 5,000 unit SUB-Q Q12HR [facility] Last Admin: 06/06/19 09:05 Dose: 5,000 unit Documented by: Sodium Chloride (Nacl 0.45% 1000 Ml) 1,000 mls @ 75 mls/hr IV DIRECT [facility] Last Admin: 06/05/19 14:12 Dose: 75 mls/hr Documented by: Ceftriaxone Sodium (Rocephin/Ns 1 Gm/50 Ml) 1 gm in 50 mls @ 100 mls/hr IV Q24HR [facility]; Protocol Last Admin: 06/06/19 09:05 Dose: 100 mls/hr Documented by: Dextrose (D5w) 1,000 mls @ 100 mls/hr IV DIRECT [facility] Last Admin: 06/06/19 05:16 Dose: 100 mls/hr Documented by: Insulin Human Lispro (Humalog) 0 unit SUB-Q ACHS [facility]; Protocol Last Admin: 06/06/19 08:20 Dose: 2 unit Documented by: Mirtazapine (Remeron) 15 mg PO QHS [facility] Last Admin: 06/05/19 22:01 Dose: Not Given Documented by: Ondansetron HCl (Zofran) 4 mg IV Q8H PRN PRN Reason: Nausea And Vomiting Sodium Chloride (Sodium Chloride Flush Syringe 10 Ml) 10 ml IV BID [facility] Last Admin: 06/06/19 09:05 Dose: 10 ml Documented by: Sodium Chloride (Sodium Chloride Flush Syringe 10 Ml) 10 ml IV PRN PRN PRN Reason: LINE FLUSH Tamsulosin HCl (Flomax) 0.4 mg PO QDAY [facility] Last Admin: 06/06/19 09:06 Dose: Not Given Documented by: Vitamin B Complex/Vitamin C (Allbee With C) 1 each PO QDAY [facility] Last Admin: 06/06/19 09:06 Dose: Not Given Documented by: Review of Systems ROS unobtainable: due to mental status Exam - Vital Signs Vital signs: Vital Signs Temp Pulse Resp BP Pulse Ox 89.0 F L 84 22 141/77 95 06/05/19 10:39 06/05/19 10:39 06/05/19 10:39 06/05/19 10:39 06/05/19 10:39 - General Appearance General appearance: well-developed, appears stated age, cachectic, other (not in distress) EENT: ATNC, PERRL Neck: Present: trachea midline Respiratory: Clear to Ascultation Heart: regular, S1S2, no murmurs Gastrointestinal: Present: normoactive bowel sounds. Absent: tenderness, distended Integumentary: other (abrasions over both elbows and knees) Neurologic: other (alert, not following any command, not answering any questions) Musculoskeletal: Present: other (no edema) Results - Lab Results 06/06/19 04:22 06/06/19 04:22 Most recent lab results Calcium 9.9 mg/dL (8.4-10.2) 06/06/19 04:22 Phosphorus 3.80 mg/dL (2.5-4.5) 06/06/19 04:22 Magnesium 2.60 mg/dL (1.7-2.3) H 06/06/19 04:22 - Image Kidney/bladder ultrasound: pending Assessment and Plan 1. Acute kidney injury: Vasomotor PAPITO in the setting of volume depletion. Urine studies and renal US ordered. Continue IV fluids. Monitor renal function. Avoid nephrotoxic agents. Meds dosage based on GFR. 2. FEN: Hyperkalemia, Insulin-Dextrose ordered. Pt is NPO. Hypernatremia, improved. Metabolic acidosis, bicarbonate drip. Monitor lytes. 3. UTI: Ceftriaxone. 4. Metabolic Encephalopathy. 5. Adult failure to thrive.
[2019-06-06] MEDS ORDERED: HumuLIN R IV ONE (13:00)
[2019-06-06] MEDS ORDERED: D50W (25GM) Syringe IV NR (13:00)
[2019-06-06] MEDS: SODIUM BICARBONATE 100 MEQ in D5W 1,000 ML IV SCH (13:16)
--- NOTE | 2019-06-06 14:29 | Progress Note ---
Assessment and Plan (1) Severe malnutrition Current Visit: Yes Status: Acute Plan to address problem: encourage increased protein intake when awake/alert only, dietary supplementation. (2) Metabolic encephalopathy Current Visit: Yes Status: Acute Plan to address problem: CT Head, neuro check, aspiration precautions, fall precautions, supportive care, urinalysis, thyroid panel (3) Acidosis Current Visit: Yes Status: Acute Plan to address problem: IVF resuscitation therapy, repeat bmp. (4) Volume depletion Current Visit: Yes Status: Acute Plan to address problem: IVF resuscitation therapy, monitor uop q shift, monitor serum creatnine. (5) UTI (urinary tract infection) Current Visit: Yes Status: Acute Qualifiers: Encounter type: initial encounter Plan to address problem: IV antibiotic therapy, urinalysis, CBC, CMP, supportive care. (6) Advance care planning Current Visit: Yes Status: Acute Plan to address problem: 30 minutes spent discussing care plan. Case management consulted. Pt likely to require placement to [facility]. (7) Debility Current Visit: Yes Status: Acute Plan to address problem: PT consulted, supportive care, fall precautions. (8) PAPITO (acute kidney injury) Current Visit: No Status: Acute Plan to address problem: IVF resuscitation therapy, monitor uop q shift, nephrology consulted, urine electrolytes. (9) DVT prophylaxis Current Visit: Yes Status: Acute Plan to address problem: SCD to BLE while in bed. Subjective Date of service: 06/06/19 Principal diagnosis: Severe malnutrition Interval history: Lethargic Objective - Constitutional Vitals: Vital Signs - 12hr 06/06/19 06/06/19 06/06/19 07:37 08:54 09:38 Pulse Rate 71 Pulse Rate [ 71 Right Brachial] Respiratory 78 H 18 Rate Blood Pressure 142/73 O2 Sat by Pulse 100 100 100 Oximetry 06/06/19 10:00 Pulse Rate 66 Pulse Rate [ Right Brachial] Respiratory Rate Blood Pressure O2 Sat by Pulse Oximetry General appearance: Present: no acute distress, well-nourished - EENT Eyes: PERRL, EOM intact ENT: hearing intact, clear oral mucosa Ears: bilateral: normal - Neck Neck: supple, normal ROM - Respiratory Respiratory effort: normal Respiratory: bilateral: CTA - Breasts Breasts: normal - Cardiovascular Heart rate: 88 Rhythm: regular Heart Sounds: Present: S1 & S2. Absent: gallop, rub Extremities: pulses intact, No edema, normal color, Full ROM - Gastrointestinal General gastrointestinal: Present: soft, non-tender, non-distended, normal bowel sounds - Genitourinary Male genitourinary: normal - Integumentary Integumentary: clear, warm, dry - Musculoskeletal Musculoskeletal: 1, strength equal bilaterally - Neurologic Neurologic: moves all extremities - Psychiatric Psychiatric: memory intact, appropriate mood/affect, intact judgment & insight - Labs CBC & Chem 7: 06/06/19 04:22 06/06/19 20:50 Labs: Abnormal lab results 06/05/19 06/05/19 06/05/19 Range/Units 16:16 18:52 19:38 RDW (13.2-15.2) % Seg Neutrophils % (40.0-70.0) % Potassium (3.6-5.0) mmol/L Chloride (98-107) mmol/L Carbon Dioxide (22-30) mmol/L BUN (9-20) mg/dL Creatinine (0.8-1.5) mg/dL Glucose (75-100) mg/dL POC Glucose 56 L < 40 L 140 H (70-105) Magnesium (1.7-2.3) mg/dL AST (5-40) units/L Alkaline Phosphatase (35-129) units/L Albumin (3.9-5) g/dL 06/05/19 06/05/19 06/06/19 Range/Units 20:07 21:46 02:06 RDW (13.2-15.2) % Seg Neutrophils % (40.0-70.0) % Potassium (3.6-5.0) mmol/L Chloride (98-107) mmol/L Carbon Dioxide (22-30) mmol/L BUN (9-20) mg/dL Creatinine (0.8-1.5) mg/dL Glucose 128 H (75-100) mg/dL POC Glucose 141 H 213 H (70-105) Magnesium (1.7-2.3) mg/dL AST (5-40) units/L Alkaline Phosphatase (35-129) units/L Albumin (3.9-5) g/dL 06/06/19 06/06/19 06/06/19 Range/Units 04:22 04:22 05:20 RDW 18.1 H (13.2-15.2) % Seg Neutrophils % 71.8 H (40.0-70.0) % Potassium 5.1 H (3.6-5.0) mmol/L Chloride 112.2 H (98-107) mmol/L Carbon Dioxide 13 L (22-30) mmol/L BUN 44 H (9-20) mg/dL Creatinine 2.3 H (0.8-1.5) mg/dL Glucose 182 H (75-100) mg/dL POC Glucose 237 H (70-105) Magnesium 2.60 H (1.7-2.3) mg/dL AST 45 H (5-40) units/L Alkaline Phosphatase 164 H (35-129) units/L Albumin 3.5 L (3.9-5) g/dL 06/06/19 06/06/19 06/06/19 Range/Units 07:42 10:48 13:19 RDW (13.2-15.2) % Seg Neutrophils % (40.0-70.0) % Potassium (3.6-5.0) mmol/L Chloride (98-107) mmol/L Carbon Dioxide (22-30) mmol/L BUN (9-20) mg/dL Creatinine (0.8-1.5) mg/dL Glucose (75-100) mg/dL POC Glucose 247 H 167 H 108 H (70-105) Magnesium (1.7-2.3) mg/dL AST (5-40) units/L Alkaline Phosphatase (35-129) units/L Albumin (3.9-5) g/dL
[2019-06-06] MEDS: D50W (25GM) Syringe IV PRN (17:33)
[2019-06-06] MEDS: SODIUM CHLORIDE FLUSH SYRINGE 10 ML IV PRN (17:33)
[2019-06-06 18:01] LABS: Creatinine,Urine 102.7 mg/dL (0.1-20.0)
--- NOTE | 2019-06-06 18:07 | Ultrasound Report ---
ULTRASOUND RENAL INDICATION: Acute renal failure.. COMPARISON: Exam is compared to 05/22/2019 FINDINGS: RIGHT KIDNEY: Size: 9.3 cm. Echogenicity: Echogenic. Cortical thickness: Normal. Hydronephrosis: None. Cyst or mass: None. Stones: None. LEFT KIDNEY: Size: 10.4 cm. Echogenicity: Echogenic. Cortical thickness: Normal. Hydronephrosis: None. Cyst or mass: Two simple cyst left kidney largest measuring 2.6 cm. Stones: None. Urinary Bladder: The brain is present dependent portion of the urinary bladder Free Fluid: None. Additional Findings: None. IMPRESSION 1. Echogenic kidneys characteristic for medical renal disease. No hydronephrosis. 2. Two left renal cyst. Signer Name: Owen Hatch MD Signed: 06/06/2019 6:03 PM Workstation Name: [id number]
[2019-06-06] MEDS: REMERON PO SCH (22:46)
[2019-06-07] MEDS: SODIUM BICARBONATE 100 MEQ in D5W 1,000 ML IV SCH ×2 (04:39→18:59)
[2019-06-07] MEDS: HumaLOG SUB-Q SCH ×4 (08:25→22:00)
[2019-06-07] MEDS: QUESTRAN PO SCH ×3 (08:37→23:00)
[2019-06-07] MEDS: ROCEPHIN/NS 1 GM/50 ML 1 GM/50 ML BAG IV SCH (09:00)
[2019-06-07] MEDS: FERGON PO SCH ×2 (09:02→23:00)
[2019-06-07] MEDS: SODIUM CHLORIDE FLUSH SYRINGE 10 ML IV SCH ×2 (09:02→23:00)
[2019-06-07] MEDS: FLOMAX PO SCH (09:02)
[2019-06-07] MEDS: ALLBEE WITH C PO SCH (09:02)
[2019-06-07] MEDS: HALFPRIN EC PO SCH (09:02)
[2019-06-07] MEDS: PROSCAR PO SCH (09:03)
[2019-06-07] MEDS: PEPCID PO SCH (09:03)
[2019-06-07] MEDS: HEPARIN SUB-Q SCH ×2 (09:20→23:37)
--- NOTE | 2019-06-07 11:43 | Progress Note ---
Assessment and Plan 1. Acute kidney injury: Vasomotor PAPITO in the setting of volume depletion. Renal US was negative for hydro. Continue IV fluids. Renal function is improving. Monitor renal function. Avoid nephrotoxic agents. Meds dosage based on GFR. 2. FEN: Hyperkalemia, improved. Hypernatremia, improved. Metabolic acidosis, bicarbonate drip. Monitor lytes. 3. UTI: Ceftriaxone. 4. Metabolic Encephalopathy. 5. Adult failure to thrive. Subjective Date of service: 06/07/19 Interval history: Patient was seen and examined at the bedside. Objective - Vital Signs Vital signs: Vital Signs - 12hr 06/07/19 06/07/19 02:00 07:46 Temperature 98.3 F 97.6 F Pulse Rate 72 71 Respiratory 20 18 Rate Blood Pressure 184/86 Blood Pressure 158/75 [Right] O2 Sat by Pulse 95 100 Oximetry - General Appearance General appearance: well-developed, appears stated age, cachectic, other (not in distress) EENT: ATNC, PERRL Neck: other (Trachea midline) Respiratory: Present: Clear to Ascultation Cardiology: regular, S1S2, no murmurs Gastrointestinal: normoactive bowel sounds, no tenderness Integumentary: other (abrasions over both knees and elbow area) Neurologic: other (alert, not following any command, non-verbal) Musculoskeletal: other (no edema) - Lab 06/06/19 04:22 06/07/19 14:35 Most recent lab results Calcium 9.9 mg/dL (8.4-10.2) 06/06/19 04:22 Phosphorus 3.80 mg/dL (2.5-4.5) 06/06/19 04:22 Magnesium 2.60 mg/dL (1.7-2.3) H 06/06/19 04:22 102.7 mg/dL (0.1-20.0) H 06/06/19 17:37 47 mmol/L 06/06/19 17:37 Medications & Allergies - Medications Allergies/Adverse Reactions: Allergies No Known Allergies Allergy (Verified 05/19/19 22:08) Home Medications: Home Medications Medication Instructions Recorded Confirmed Last Taken Type Cholestyramine/Aspartame 239.4 mg PO TID 05/20/19 06/05/19 Unknown History [Cholestyramine Light Powder] Famotidine [Pepcid] 20 mg PO BID 05/20/19 06/05/19 Unknown History Ferrous Gluconate [Fergon 240 MG 240 mg PO BID 05/20/19 06/05/19 Unknown History tab] Finasteride [Proscar] 5 mg PO DAILY 05/20/19 06/05/19 Unknown History Mirtazapine [Remeron 15mg TAB] 15 mg PO QHS 05/20/19 06/05/19 Unknown History Tamsulosin [Flomax] 0.4 mg PO QDAY 05/20/19 06/05/19 Unknown History Vitamin B Complex [B Complex] 1 each PO DAILY 05/20/19 06/05/19 Unknown History Aspirin EC 81 mg PO QDAY tablet 05/22/19 06/05/19 Unknown Rx Insulin Regular, Human [HumuLIN R] 0 units SUB-Q ACHS units 05/22/19 06/05/19 Unknown Rx Megestrol [Megace] 400 mg PO QDAY oral.liqd 05/22/19 06/05/19 Unknown Rx Insulin NPH/Regular [NovoLIN 70/30] 10 unit SQ BIDDIAB #1 vial 05/27/19 06/05/19 Unknown Rx Metoprolol [Lopressor TAB] 12.5 mg PO BID #60 tablet 05/27/19 06/05/19 Unknown Rx amLODIPine [Norvasc] 10 mg PO QDAY #60 tablet 05/27/19 06/05/19 Unknown Rx Active Medications: Generic Name Dose Route Start Last Admin Trade Name Freq PRN Reason Stop Dose Admin Acetaminophen 650 mg 06/05/19 14:00 Tylenol PO Q4H PRN Pain MILD(1-3)/Fever >100.5/POLANCO Albuterol 2.5 mg 06/05/19 14:00 Proventil IH Q4HRT PRN Shortness Of Breath Aspirin 81 mg 06/06/19 10:00 06/07/19 09:02 Halfprin Ec PO Not Given QDAY [facility] Cholestyramine Resin 4 gm 06/05/19 20:00 06/07/19 08:37 Questran PO Not Given TID [facility] Dextrose 50 ml 06/05/19 14:03 06/06/19 17:33 D50w (25gm) Syringe IV 50 ml PRN PRN Administration Hypoglycemia Famotidine 20 mg 06/05/19 22:00 06/07/19 09:03 Pepcid PO Not Given DAILY [facility] Ferrous Gluconate 324 mg 06/05/19 22:00 06/07/19 09:02 Fergon PO Not Given BID [facility] Finasteride 5 mg 06/06/19 10:00 06/07/19 09:03 Proscar PO Not Given DAILY [facility] Heparin Sodium (Porcine) 5,000 unit 06/05/19 22:00 06/07/19 09:20 Heparin SUB-Q 5,000 unit Q12HR [facility] Administration Ceftriaxone Sodium 1 gm in 50 mls @ 100 mls/hr 06/05/19 15:30 06/07/19 09:00 Rocephin/Ns 1 Gm/50 Ml IV 100 mls/hr Q24HR [facility] Administration Protocol Sodium Bicarbonate 100 meq/ 1,100 mls @ 75 mls/hr 06/06/19 13:00 06/07/19 04:39 Dextrose IV 75 mls/hr DIRECT [facility] Administration Insulin Human Lispro 0 unit 06/05/19 16:30 06/07/19 08:25 Humalog SUB-Q 2 unit ACHS [facility] Administration Protocol Mirtazapine 15 mg 06/05/19 22:00 06/06/19 22:46 Remeron PO Not Given QHS [facility] Ondansetron HCl 4 mg 06/05/19 14:00 Zofran IV Q8H PRN Nausea And Vomiting Sodium Chloride 10 ml 06/05/19 22:00 06/07/19 09:02 Sodium Chloride Flush Syringe 10 Ml IV 10 ml BID [facility] Administration Sodium Chloride 10 ml 06/05/19 14:00 06/06/19 17:33 Sodium Chloride Flush Syringe 10 Ml IV 10 ml PRN PRN Administration LINE FLUSH Tamsulosin HCl 0.4 mg 06/06/19 10:00 06/07/19 09:02 Flomax PO Not Given QDAY [facility] Vitamin B Complex/Vitamin C 1 each 06/06/19 10:00 06/07/19 09:02 Allbee With C PO Not Given QDAY [facility]
[2019-06-07] MEDS ORDERED: APRESOLINE IV PRN (14:00)
[2019-06-07 15:12] LABS: Calcium 9.4 mg/dL (8.4-10.2)
[2019-06-07] MEDS: REMERON PO SCH (23:00)
[2019-06-08 06:27] LABS: Basophils % (Auto) 1.2 % (0.0-1.8); Eosinophils # (Auto) 0.1 K/mm3 (0.0-0.4); Eosinophils % (Auto) 2.8 % (0.0-4.3); Hematocrit 31.6 % (35.5-45.6); Hemoglobin 10.8 gm/dl (11.8-15.2); Lymphocytes # (Auto) 0.9 K/mm3 (1.2-5.4); Lymphocytes % (Auto) 30.2 % (13.4-35.0); Mean Corpuscular HGB Conc 34 % (32-34); Mean Corpuscular Volume 85 fl (84-94); Monocytes # (Auto) 0.4 K/mm3 (0.0-0.8); Monocytes % (Auto) 14.3 % (0.0-7.3); Platelet Count 206 K/mm3 (140-440); Red Cell Distribution Width 16.8 % (13.2-15.2)
[2019-06-08 06:55] LABS: Calcium 9.4 mg/dL (8.4-10.2)
[2019-06-08] MEDS: QUESTRAN PO SCH ×3 (08:18→22:54)
[2019-06-08] MEDS: HumaLOG SUB-Q SCH ×4 (08:18→22:53)
--- NOTE | 2019-06-08 08:44 | Progress Note ---
Assessment and Plan 1. Acute kidney injury: Vasomotor PAPITO superimposed on CKD stage 3 in the setting of volume depletion. Renal US was negative for hydro. Continue IV fluids. Renal function is improving. Monitor renal function. Avoid nephrotoxic agents. Meds dosage based on GFR. 2. FEN: Hyperkalemia, improved. Hypernatremia, improved. Metabolic acidosis, bicarbonate drip. Monitor lytes. 3. UTI: Ceftriaxone. 4. Metabolic Encephalopathy. 5. Anemia: POA. 6. Adult failure to thrive. Subjective Date of service: 06/08/19 Principal diagnosis: Severe malnutrition Interval history: Patient was seen and examined at the bedside. Objective - Vital Signs Vital signs: Vital Signs - 12hr 06/07/19 06/07/19 06/08/19 21:00 21:10 02:10 Temperature 97.9 F Pulse Rate 70 71 Pulse Rate [ 66 Right Brachial] Respiratory 18 18 Rate Blood Pressure 146/87 O2 Sat by Pulse 100 100 Oximetry 06/08/19 07:39 Temperature 97.8 F Pulse Rate 70 Pulse Rate [ Right Brachial] Respiratory 20 Rate Blood Pressure 150/81 O2 Sat by Pulse 100 Oximetry - General Appearance General appearance: well-developed, appears stated age, cachectic, other (no distress) EENT: ATNC, PERRL Neck: other (Trachea midline) Respiratory: Present: Clear to Ascultation Cardiology: regular, S1S2, no murmurs Gastrointestinal: normoactive bowel sounds, no tenderness Integumentary: ulcer (superficial, over both elbow and knee areas) Neurologic: other (alert, non-verbal, not following any command) Musculoskeletal: other (no edema) - Lab 06/08/19 05:55 06/08/19 05:55 Most recent lab results Calcium 9.4 mg/dL (8.4-10.2) 06/08/19 05:55 Phosphorus 3.80 mg/dL (2.5-4.5) 06/06/19 04:22 Magnesium 2.60 mg/dL (1.7-2.3) H 06/06/19 04:22 102.7 mg/dL (0.1-20.0) H 06/06/19 17:37 47 mmol/L 06/06/19 17:37 Medications & Allergies - Medications Allergies/Adverse Reactions: Allergies No Known Allergies Allergy (Verified 05/19/19 22:08) Home Medications: Home Medications Medication Instructions Recorded Confirmed Last Taken Type Cholestyramine/Aspartame 239.4 mg PO TID 05/20/19 06/05/19 Unknown History [Cholestyramine Light Powder] Famotidine [Pepcid] 20 mg PO BID 05/20/19 06/05/19 Unknown History Ferrous Gluconate [Fergon 240 MG 240 mg PO BID 05/20/19 06/05/19 Unknown History tab] Finasteride [Proscar] 5 mg PO DAILY 05/20/19 06/05/19 Unknown History Mirtazapine [Remeron 15mg TAB] 15 mg PO QHS 05/20/19 06/05/19 Unknown History Tamsulosin [Flomax] 0.4 mg PO QDAY 05/20/19 06/05/19 Unknown History Vitamin B Complex [B Complex] 1 each PO DAILY 05/20/19 06/05/19 Unknown History Aspirin EC 81 mg PO QDAY tablet 05/22/19 06/05/19 Unknown Rx Insulin Regular, Human [HumuLIN R] 0 units SUB-Q ACHS units 05/22/19 06/05/19 Unknown Rx Megestrol [Megace] 400 mg PO QDAY oral.liqd 05/22/19 06/05/19 Unknown Rx Insulin NPH/Regular [NovoLIN 70/30] 10 unit SQ BIDDIAB #1 vial 05/27/19 06/05/19 Unknown Rx Metoprolol [Lopressor TAB] 12.5 mg PO BID #60 tablet 05/27/19 06/05/19 Unknown Rx amLODIPine [Norvasc] 10 mg PO QDAY #60 tablet 05/27/19 06/05/19 Unknown Rx Active Medications: Generic Name Dose Route Start Last Admin Trade Name Freq PRN Reason Stop Dose Admin Acetaminophen 650 mg 06/05/19 14:00 Tylenol PO Q4H PRN Pain MILD(1-3)/Fever >100.5/POLANCO Albuterol 2.5 mg 06/05/19 14:00 Proventil IH Q4HRT PRN Shortness Of Breath Aspirin 81 mg 06/06/19 10:00 06/07/19 09:02 Halfprin Ec PO Not Given QDAY [facility] Cholestyramine Resin 4 gm 06/05/19 20:00 06/08/19 08:18 Questran PO Not Given TID [facility] Dextrose 50 ml 06/05/19 14:03 06/06/19 17:33 D50w (25gm) Syringe IV 50 ml PRN PRN Administration Hypoglycemia Famotidine 20 mg 06/05/19 22:00 06/07/19 09:03 Pepcid PO Not Given DAILY [facility] Ferrous Gluconate 324 mg 06/05/19 22:00 06/07/19 23:00 Fergon PO Not Given BID [facility] Finasteride 5 mg 06/06/19 10:00 06/07/19 09:03 Proscar PO Not Given DAILY [facility] Heparin Sodium (Porcine) 5,000 unit 06/05/19 22:00 06/07/19 23:37 Heparin SUB-Q 5,000 unit Q12HR [facility] Administration Hydralazine HCl 10 mg 06/07/19 14:00 06/07/19 13:42 Apresoline IV 10 mg Q3HR PRN Administration Elevated BP Ceftriaxone Sodium 1 gm in 50 mls @ 100 mls/hr 06/05/19 15:30 06/07/19 09:00 Rocephin/Ns 1 Gm/50 Ml IV 100 mls/hr Q24HR [facility] Administration Protocol Sodium Bicarbonate 100 meq/ 1,100 mls @ 75 mls/hr 06/06/19 13:00 06/07/19 18:59 Dextrose IV 75 mls/hr DIRECT [facility] Administration Insulin Human Lispro 0 unit 06/05/19 16:30 06/08/19 08:18 Humalog SUB-Q 1 unit ACHS [facility] Administration Protocol Mirtazapine 15 mg 06/05/19 22:00 06/07/19 23:00 Remeron PO Not Given QHS [facility] Ondansetron HCl 4 mg 06/05/19 14:00 Zofran IV Q8H PRN Nausea And Vomiting Sodium Chloride 10 ml 06/05/19 22:00 06/07/19 23:00 Sodium Chloride Flush Syringe 10 Ml IV Not Given BID [facility] Sodium Chloride 10 ml 06/05/19 14:00 06/06/19 17:33 Sodium Chloride Flush Syringe 10 Ml IV 10 ml PRN PRN Administration LINE FLUSH Tamsulosin HCl 0.4 mg 06/06/19 10:00 06/07/19 09:02 Flomax PO Not Given QDAY [facility] Vitamin B Complex/Vitamin C 1 each 06/06/19 10:00 06/07/19 09:02 Allbee With C PO Not Given QDAY [facility]
[2019-06-08] MEDS: ROCEPHIN/NS 1 GM/50 ML 1 GM/50 ML BAG IV SCH (09:00)
[2019-06-08] MEDS: SODIUM CHLORIDE FLUSH SYRINGE 10 ML IV SCH ×3 (09:02→22:54)
[2019-06-08] MEDS: HEPARIN SUB-Q SCH (09:03)
[2019-06-08] MEDS: ALLBEE WITH C PO SCH (09:06)
[2019-06-08] MEDS: FERGON PO SCH ×2 (09:06→22:54)
[2019-06-08] MEDS: FLOMAX PO SCH (09:07)
[2019-06-08] MEDS: PROSCAR PO SCH (09:07)
[2019-06-08] MEDS: PEPCID PO SCH (09:07)
[2019-06-08] MEDS: HALFPRIN EC PO SCH (09:07)
[2019-06-08] MEDS: SODIUM BICARBONATE 100 MEQ in D5W 1,000 ML IV SCH (13:43)
--- NOTE | 2019-06-08 14:52 | Progress Note ---
Assessment and Plan (1) Severe malnutrition Current Visit: Yes Status: Acute Plan to address problem: encourage increased protein intake when awake/alert only, dietary supplementation. Peg tube Consent obtained from son (2) Metabolic encephalopathy Current Visit: Yes Status: Acute Plan to address problem: CT Head, neuro check, aspiration precautions, fall precautions, supportive care, urinalysis, thyroid panel (3) Acidosis Current Visit: Yes Status: Acute Plan to address problem: IVF resuscitation therapy, repeat bmp. (4) Volume depletion Current Visit: Yes Status: Acute Plan to address problem: IVF resuscitation therapy, monitor uop q shift, monitor serum creatnine. IV Fluids for now Renal consult placed (5) UTI (urinary tract infection) Current Visit: Yes Status: Acute Qualifiers: Encounter type: initial encounter Plan to address problem: IV antibiotic therapy, urinalysis, CBC, CMP, supportive care. (6) Advance care planning Current Visit: Yes Status: Acute Plan to address problem: 30 minutes spent discussing care plan. Case management consulted. Pt likely to require placement to RESIDENTIAL/SNF. (7) Debility Current Visit: Yes Status: Acute Plan to address problem: PT consulted, supportive care, fall precautions. (8) PAPITO (acute kidney injury) Current Visit: No Status: Acute Plan to address problem: IVF resuscitation therapy, monitor uop q shift, nephrology consulted, urine electrolytes. Nephrology consult placed (9) DVT prophylaxis Current Visit: Yes Status: Acute Plan to address problem: SCD to BLE while in bed. Subjective Date of service: 06/07/19 Principal diagnosis: Severe malnutrition Interval history: Lethargic Objective - Constitutional Vitals: Vital Signs - 12hr 06/08/19 06/08/19 06/08/19 07:39 09:00 10:00 Temperature 97.8 F Pulse Rate 70 65 Pulse Rate [ 70 Right Brachial] Respiratory 20 20 Rate Blood Pressure 150/81 O2 Sat by Pulse 100 100 Oximetry 06/08/19 13:20 Temperature 98.0 F Pulse Rate Pulse Rate [ Right Brachial] Respiratory 20 Rate Blood Pressure O2 Sat by Pulse Oximetry General appearance: Present: no acute distress, well-nourished - EENT Eyes: PERRL, EOM intact ENT: hearing intact, clear oral mucosa Ears: bilateral: normal - Neck Neck: supple, normal ROM - Respiratory Respiratory effort: normal Respiratory: bilateral: CTA - Breasts Breasts: normal - Cardiovascular Heart rate: 88 Rhythm: regular Heart Sounds: Present: S1 & S2. Absent: gallop, rub Extremities: pulses intact, No edema, normal color, Full ROM - Gastrointestinal General gastrointestinal: Present: soft, non-tender, non-distended, normal bowel sounds - Genitourinary Male genitourinary: normal - Integumentary Integumentary: clear, warm, dry - Musculoskeletal Musculoskeletal: generalized weakness - Neurologic Neurologic: moves all extremities - Psychiatric Psychiatric: memory intact, appropriate mood/affect, intact judgment & insight - Labs CBC & Chem 7: 06/08/19 05:55 06/08/19 05:55 Labs: Abnormal lab results 06/07/19 06/07/19 06/07/19 Range/Units 14:35 15:12 16:35 WBC (4.5-11.0) K/mm3 Hgb (11.8-15.2) gm/dl Hct (35.5-45.6) % RDW (13.2-15.2) % [place] % (Auto) (0.0-7.3) % Lymph # (1.2-5.4) K/mm3 Seg Neutrophils # (1.8-7.7) K/mm3 Carbon Dioxide (22-30) mmol/L BUN 40 H (9-20) mg/dL Creatinine 2.2 H (0.8-1.5) mg/dL Glucose 154 H (75-100) mg/dL POC Glucose 164 H 181 H (70-105) Alkaline Phosphatase (35-129) units/L Total Protein (6.3-8.2) g/dL Albumin (3.9-5) g/dL 06/07/19 06/08/19 06/08/19 Range/Units 21:43 02:00 05:46 WBC (4.5-11.0) K/mm3 Hgb (11.8-15.2) gm/dl Hct (35.5-45.6) % RDW (13.2-15.2) % [place] % (Auto) (0.0-7.3) % Lymph # (1.2-5.4) K/mm3 Seg Neutrophils # (1.8-7.7) K/mm3 Carbon Dioxide (22-30) mmol/L BUN (9-20) mg/dL Creatinine (0.8-1.5) mg/dL Glucose (75-100) mg/dL POC Glucose 62 L 126 H 147 H (70-105) Alkaline Phosphatase (35-129) units/L Total Protein (6.3-8.2) g/dL Albumin (3.9-5) g/dL 06/08/19 06/08/19 06/08/19 Range/Units 05:55 05:55 07:48 WBC 3.1 L (4.5-11.0) K/mm3 Hgb 10.8 L (11.8-15.2) gm/dl Hct 31.6 L D (35.5-45.6) % RDW 16.8 H (13.2-15.2) % [place] % (Auto) 14.3 H (0.0-7.3) % Lymph # 0.9 L (1.2-5.4) K/mm3 Seg Neutrophils # 1.6 L (1.8-7.7) K/mm3 Carbon Dioxide 21 L (22-30) mmol/L BUN 38 H (9-20) mg/dL Creatinine 2.2 H (0.8-1.5) mg/dL Glucose 167 H (75-100) mg/dL POC Glucose 179 H (70-105) Alkaline Phosphatase 130 H (35-129) units/L Total Protein 6.2 L (6.3-8.2) g/dL Albumin 3.0 L (3.9-5) g/dL
[2019-06-08] MEDS ORDERED: TYLENOL PO PRN (14:58)
[2019-06-08] MEDS ORDERED: DILAUDID IV PRN (14:58)
[2019-06-08] MEDS ORDERED: ZOFRAN IV PRN (14:58)
[2019-06-08] MEDS ORDERED: PERCOCET 5/325 PO PRN (14:58)
[2019-06-08] MEDS ORDERED: SODIUM CHLORIDE FLUSH SYRINGE 10 ML IV PRN (14:58)
[2019-06-08] MEDS ORDERED: HEPARIN SUB-Q SCH (22:00)
[2019-06-08] MEDS: REMERON PO SCH (22:54)
[2019-06-09] MEDS: D5NS 1,000 ML IV SCH ×2 (02:56→17:57)
[2019-06-09] MEDS: D50W (25GM) Syringe IV PRN (03:09)
[2019-06-09 06:06] LABS: Albumin 2.8 g/dL (3.9-5); Calcium 8.9 mg/dL (8.4-10.2)
[2019-06-09 07:57] LABS: Eosinophils # (Auto) 0.1 K/mm3 (0.0-0.4); Eosinophils % (Auto) 3.9 % (0.0-4.3); Hematocrit 31.7 % (35.5-45.6); Hemoglobin 10.6 gm/dl (11.8-15.2); Mean Corpuscular HGB Conc 34 % (32-34); Mean Corpuscular Volume 86 fl (84-94); Monocytes # (Auto) 0.4 K/mm3 (0.0-0.8); Monocytes % (Auto) 13.8 % (0.0-7.3); Platelet Count 185 K/mm3 (140-440); Red Blood Count 3.71 M/mm3 (3.65-5.03)
[2019-06-09 07:59] LABS: Basophils % (Auto) 0.9 % (0.0-1.8); Lymphocytes % (Auto) 32.7 % (13.4-35.0)
[2019-06-09] MEDS: QUESTRAN PO SCH ×3 (08:02→20:22)
[2019-06-09] MEDS: HumaLOG SUB-Q SCH ×4 (10:09→22:24)
[2019-06-09] MEDS: PEPCID PO SCH (10:09)
[2019-06-09] MEDS: FLOMAX PO SCH (10:09)
[2019-06-09] MEDS: FERGON PO SCH ×2 (10:09→22:23)
[2019-06-09] MEDS: HALFPRIN EC PO SCH (10:09)
[2019-06-09] MEDS: ALLBEE WITH C PO SCH (10:09)
[2019-06-09] MEDS: PROSCAR PO SCH (10:10)
[2019-06-09] MEDS: SODIUM CHLORIDE FLUSH SYRINGE 10 ML IV SCH ×4 (10:10→22:24)
[2019-06-09] MEDS: ROCEPHIN/NS 1 GM/50 ML 1 GM/50 ML BAG IV SCH (10:12)
--- NOTE | 2019-06-09 10:19 | Progress Note ---
Assessment and Plan Assessment and plan: Acute metabolic encephalopathy Neurochecks UTI due to ESBL Klebsiella pneumonia consult ID Physician PAPITO Improving Cr 2.0 Nephrology following Dementia Monitor Neurochecks Severe malnutrition BMI only 14.7 s/p PEG tube Full code status History Interval history: Altered mental status Hospitalist Physical - Physical exam Narrative exam: Gen: Not in acute distress, lying in bed, HEENT: Normocephalic, atraumatic Neck: supple, no JVD Heart: S1 and S2 reg, no murmurs, rubs or gallop Lungs: Clear to auscultation, no wheeze Abd: soft, non tender, non distended, normal BS, Ext: No edema, no clubbing, no cyanosis Neuro: lethargic, opens eyes, does not follow commands - Constitutional Vitals: Temp Pulse Resp BP Pulse Ox 98.0 F 64 16 168/84 100 06/08/19 13:20 06/08/19 22:00 06/08/19 21:06 06/09/19 00:20 06/08/19 21:06 General appearance: Present: no acute distress, well-nourished Results - Labs CBC & Chem 7: 06/10/19 05:20 06/10/19 05:20 Labs: Laboratory Last Values WBC 3.1 K/mm3 (4.5-11.0) L 06/09/19 07:39 RBC 3.71 M/mm3 (3.65-5.03) 06/09/19 07:39 Hgb 10.6 gm/dl (11.8-15.2) L 06/09/19 07:39 Hct 31.7 % (35.5-45.6) L 06/09/19 07:39 MCV 86 fl (84-94) 06/09/19 07:39 MCH 29 pg (28-32) 06/09/19 07:39 MCHC 34 % (32-34) 06/09/19 07:39 RDW 17.0 % (13.2-15.2) H 06/09/19 07:39 Plt Count 185 K/mm3 (140-440) 06/09/19 07:39 Lymph % (Auto) 32.7 % (13.4-35.0) 06/09/19 07:39 [place] % (Auto) 13.8 % (0.0-7.3) H 06/09/19 07:39 Eos % (Auto) 3.9 % (0.0-4.3) 06/09/19 07:39 Baso % (Auto) 0.9 % (0.0-1.8) 06/09/19 07:39 Lymph # 1.0 K/mm3 (1.2-5.4) L 06/09/19 07:39 [place] # 0.4 K/mm3 (0.0-0.8) 06/09/19 07:39 Eos # 0.1 K/mm3 (0.0-0.4) 06/09/19 07:39 Baso # 0.0 K/mm3 (0.0-0.1) 06/09/19 07:39 Seg Neutrophils % 48.7 % (40.0-70.0) 06/09/19 07:39 Seg Neutrophils # 1.5 K/mm3 (1.8-7.7) L 06/09/19 07:39 APTT 37.7 Sec. (24.2-36.6) H 06/05/19 11:11 Sodium 141 mmol/L (137-145) 06/09/19 05:02 Potassium 3.7 mmol/L (3.6-5.0) 06/09/19 05:02 Chloride 103.4 mmol/L (98-107) 06/09/19 05:02 Carbon Dioxide 23 mmol/L (22-30) 06/09/19 05:02 18 mmol/L 06/09/19 05:02 BUN 37 mg/dL (9-20) H 06/09/19 05:02 2.0 mg/dL (0.8-1.5) H 06/09/19 05:02 Estimated GFR 41 ml/min 06/09/19 05:02 19 % 06/09/19 05:02 Glucose 176 mg/dL (75-100) H 06/09/19 05:02 POC Glucose 163 (70-105) H 06/09/19 04:34 10.8 % (4-6) H 06/08/19 22:14 Lactic Acid 0.50 mmol/L (0.7-2.0) L 06/05/19 14:03 Calcium 8.9 mg/dL (8.4-10.2) 06/09/19 05:02 Phosphorus 3.80 mg/dL (2.5-4.5) 06/06/19 04:22 Magnesium 2.60 mg/dL (1.7-2.3) H 06/06/19 04:22 0.30 mg/dL (0.1-1.2) 06/09/19 05:02 AST 28 units/L (5-40) 06/09/19 05:02 ALT 36 units/L (7-56) 06/09/19 05:02 125 units/L (35-129) 06/09/19 05:02 0.047 ng/mL (0.00-0.029) H 06/05/19 11:11 NT-Pro-B Natriuret Pep 446.0 pg/mL (0-900) 06/05/19 11:11 5.8 g/dL (6.3-8.2) L 06/09/19 05:02 2.8 g/dL (3.9-5) L 06/09/19 05:02 0.9 % 06/09/19 05:02 Triglycerides 60 mg/dL (2-149) 06/05/19 11:11 Cholesterol 181 mg/dL (50-199) 06/05/19 11:11 68 mg/dL (50-130) 06/05/19 11:11 115 mg/dL (40-59) H 06/05/19 11:11 1.57 % 06/05/19 11:11 TSH 0.630 mlU/mL (0.270-4.200) 06/05/19 13:26 Free T4 1.04 ng/dL (0.76-1.46) 06/05/19 13:26 Yellow (Yellow) 06/05/19 13:21 Slightly-cloudy (Clear) 06/05/19 13:21 6.0 (5.0-7.0) 06/05/19 13:21 Ur Specific [place] 1.012 (1.003-1.030) 06/05/19 13:21 30 mg/dl mg/dL (Negative) 06/05/19 13:21 Neg mg/dL (Negative) 06/05/19 13:21 Neg mg/dL (Negative) 06/05/19 13:21 Mod (Negative) 06/05/19 13:21 Neg (Negative) 06/05/19 13:21 Neg (Negative) 06/05/19 13:21 < 2.0 mg/dL (<2.0) 06/05/19 13:21 Ur Leukocyte Esterase Mod (Negative) 06/05/19 13:21 14.0 /HPF (0.0-6.0) H 06/05/19 13:21 3.0 /HPF (0.0-6.0) 06/05/19 13:21 2+ /HPF (Negative) 06/05/19 13:21 Few /HPF 06/05/19 13:21 102.7 mg/dL (0.1-20.0) H 06/06/19 17:37 47 mmol/L 06/06/19 17:37 Active Medications - Current Medications Current Medications: Generic Name Dose Route Start Last Admin Trade Name Freq PRN Reason Stop Dose Admin Acetaminophen 650 mg 06/08/19 14:58 Tylenol PO Q4H PRN Pain MILD(1-3)/Fever >100.5/POLANCO Albuterol 2.5 mg 06/05/19 14:00 Proventil IH Q4HRT PRN Shortness Of Breath Aspirin 81 mg 06/06/19 10:00 06/09/19 10:09 Halfprin Ec PO Not Given QDAY ELIZABETH Cholestyramine Resin 4 gm 06/05/19 20:00 06/09/19 08:02 Questran PO Not Given TID ELIZABETH Dextrose 50 ml 06/05/19 14:03 06/09/19 03:09 D50w (25gm) Syringe IV 50 ml PRN PRN Administration Hypoglycemia Famotidine 20 mg 06/05/19 22:00 06/09/19 10:09 Pepcid PO Not Given DAILY ELIZABETH Ferrous Gluconate 324 mg 06/05/19 22:00 06/09/19 10:09 Fergon PO Not Given BID ELIZABETH Finasteride 5 mg 06/06/19 10:00 06/09/19 10:10 Proscar PO Not Given DAILY ELIZABETH Hydralazine HCl 10 mg 06/07/19 14:00 06/07/19 13:42 Apresoline IV 10 mg Q3HR PRN Administration Elevated BP Hydromorphone HCl 0.5 mg 06/08/19 14:58 Dilaudid IV Q3H PRN Pain , Severe (7-10) Ceftriaxone Sodium 1 gm in 50 mls @ 100 mls/hr 06/05/19 15:30 06/09/19 10:12 Rocephin/Ns 1 Gm/50 Ml IV 100 mls/hr Q24HR ELIZABETH Administration Protocol Sodium Bicarbonate 100 meq/ 1,100 mls @ 75 mls/hr 06/06/19 13:00 06/08/19 13:43 Dextrose IV 75 mls/hr DIRECT ELIZABETH Administration Dextrose/Sodium Chloride 1,000 mls @ 75 mls/hr 06/08/19 15:00 06/09/19 02:56 D5ns IV 75 mls/hr DIRECT ELIZABETH Administration Insulin Human Lispro 0 unit 06/05/19 16:30 06/09/19 10:09 Humalog SUB-Q Not Given ACHS [facility] Protocol Mirtazapine 15 mg 06/05/19 22:00 06/08/19 22:54 Remeron PO Not Given QHS [facility] Ondansetron HCl 4 mg 06/05/19 14:00 Zofran IV Q8H PRN Nausea And Vomiting Ondansetron HCl 4 mg 06/08/19 14:58 Zofran IV Q8H PRN Nausea And Vomiting Oxycodone/Acetaminophen 1 tab 06/08/19 14:58 Percocet 5/325 PO Q6H PRN Pain, Moderate (4-6) Sodium Chloride 10 ml 06/05/19 22:00 06/09/19 10:10 Sodium Chloride Flush Syringe 10 Ml IV 10 ml BID ELIZABETH Administration Sodium Chloride 10 ml 06/05/19 14:00 06/06/19 17:33 Sodium Chloride Flush Syringe 10 Ml IV 10 ml PRN PRN Administration LINE FLUSH Sodium Chloride 10 ml 06/08/19 22:00 06/09/19 10:10 Sodium Chloride Flush Syringe 10 Ml IV 10 ml BID ELIZABETH Administration Sodium Chloride 10 ml 06/08/19 14:58 Sodium Chloride Flush Syringe 10 Ml IV PRN PRN LINE FLUSH Tamsulosin HCl 0.4 mg 06/06/19 10:00 06/09/19 10:09 Flomax PO Not Given QDAY [facility] Vitamin B Complex/Vitamin C 1 each 06/06/19 10:00 06/09/19 10:09 Allbee With C PO Not Given QDAY ELIZABETH Nutrition/Malnutrition Assess - Dietary Evaluation Nutrition/Malnutrition Findings: Nutrition Notes Start: 06/06/19 08:45 Freq: Status: Active Protocol: Document 06/08/19 14:34 SERGEI (Rec: 06/08/19 14:40 SERGEI [id number]) Nutrition Notes Initial or Follow up Reassessment Current Diagnosis Acute Kidney Injury Other Pertinent Diagnosis Dementia, GERD, UTI, Metabolic encephalopathy Current Diet NPO Labs/Tests BUN 38 Cr 2.2 BG 167 Pertinent Medications Na bicarb in D5W at 75ml/hr Height 6 ft Weight 49.2 kg [place] Body Weight (kg) 80.90 BMI 14.7 Weight change and time frame Current wt obtained from bed scale Subjective/Other Information Pt remains NPO (Day 4); RN unsure of nutrition POC. Burn Absent Trauma Absent #1 Nutrition Diagnosis Malnutrition Diagnosis Progress(for reassessment Continues documentation) Is patient on ventilator? No Is Patient Ambulatory and/or Out of Bed No REE-([facility]-confined to bed) 1571.844 Kcal/Kg value to use for calculation 40 Approximate Energy Requirements Using 1968 kcal/Kg Calculation Used for Recommendations Kcal/kg Additional Notes Pro needs 1.2-1.5g/k-74g/ day Fluid needs 1ml/kcal Nutrition Intervention Change Diet Order: Either advance diet or start NTR support when medically feasible Goal #1 Advance diet or initiate TF Goal #2 Wt maintenance and/or gain Follow-Up By: 06/09/19 Additional Comments F/U: POC
--- NOTE | 2019-06-09 10:37 | History and Physical Report ---
History of Present Illness Date of examination: 06/09/19 Date of admission: 06/05/19 13:25 History of present illness: 68 yo M PMHx dementia, malnutrition, GERD, HTN initially presented for altered mental status which began the evening before admission. At that time he was found by his son to have altered mental status (nonverbal/not following commands) and weakness. Prior to this he was in his normal state of mental health, though his son notes that he had progressive physical weakness for the 3 weeks prior. He was brought in by ambulance, and was initially diagnosed with metabolic encephalopathy, PAPITO, volume depletion, and UTI. Otherwise, he and his son denied fevers, sweats, chills. He remains altered and nonverbal at the present time, as such the history was obtained from the chart. He has been afebrile since admission with a normal white count which has ventured down to mild leukopenia. He is currently receiving ceftriaxone. His urine cultures from a straight cath grew and ESBL Klebsiella. Past History Past Medical History: GERD, hypertension, hyperlipidemia, other ([place], Malnutrition) Past Surgical History: No surgical history Social history: Family history: no significant family history (reviewed) Medications and Allergies Allergies Allergy/AdvReac Type Severity Reaction Status Date / Time No Known Allergies Allergy Verified 05/19/19 22:08 Home Medications Medication Instructions Recorded Confirmed Last Taken Type Cholestyramine/Aspartame 239.4 mg PO TID 05/20/19 06/05/19 Unknown History [Cholestyramine Light Powder] RX: Famotidine [Pepcid] 20 mg PO BID 05/20/19 06/05/19 Unknown History RX: Ferrous Gluconate [Fergon 240 240 mg PO BID 05/20/19 06/05/19 Unknown History MG tab] RX: Finasteride [Proscar] 5 mg PO DAILY 05/20/19 06/05/19 Unknown History RX: Mirtazapine [Remeron 15mg TAB] 15 mg PO QHS 05/20/19 06/05/19 Unknown History RX: Vitamin B Complex [B Complex] 1 each PO DAILY 05/20/19 06/05/19 Unknown History Tamsulosin [Flomax] 0.4 mg PO QDAY 05/20/19 06/05/19 Unknown History RX: Aspirin EC 81 mg PO QDAY tablet 05/22/19 06/05/19 Unknown Rx RX: Insulin Regular, Human 0 units SUB-Q ACHS units 05/22/19 06/05/19 Unknown Rx [HumuLIN R] RX: Megestrol [Megace] 400 mg PO QDAY oral.liqd 05/22/19 06/05/19 Unknown Rx RX: Insulin NPH/Regular [NovoLIN 10 unit SQ BIDDIAB #1 vial 05/27/19 06/05/19 U nknown Rx 70/30] RX: Metoprolol [Lopressor TAB] 12.5 mg PO BID #60 tablet 05/27/19 06/05/19 Unknown Rx RX: amLODIPine [Norvasc] 10 mg PO QDAY #60 tablet 05/27/19 06/05/19 Unknown Rx Active Meds: Active Medications Acetaminophen (Tylenol) 650 mg PO Q4H PRN PRN Reason: Pain MILD(1-3)/Fever >100.5/POLANCO Albuterol (Proventil) 2.5 mg IH Q4HRT PRN PRN Reason: Shortness Of Breath Aspirin (Halfprin Ec) 81 mg PO QDAY [facility] Last Admin: 06/09/19 10:09 Dose: Not Given Documented by: Cholestyramine Resin (Questran) 4 gm PO TID [facility] Last Admin: 06/09/19 08:02 Dose: Not Given Documented by: Dextrose (D50w (25gm) Syringe) 50 ml IV PRN PRN PRN Reason: Hypoglycemia Last Admin: 06/09/19 03:09 Dose: 50 ml Documented by: Famotidine (Pepcid) 20 mg PO DAILY [facility] Last Admin: 06/09/19 10:09 Dose: Not Given Documented by: Ferrous Gluconate (Fergon) 324 mg PO BID [facility] Last Admin: 06/09/19 10:09 Dose: Not Given Documented by: Finasteride (Proscar) 5 mg PO DAILY [facility] Last Admin: 06/09/19 10:10 Dose: Not Given Documented by: Hydralazine HCl (Apresoline) 10 mg IV Q3HR PRN PRN Reason: Elevated BP Last Admin: 06/07/19 13:42 Dose: 10 mg Documented by: Hydromorphone HCl (Dilaudid) 0.5 mg IV Q3H PRN PRN Reason: Pain , Severe (7-10) Ceftriaxone Sodium (Rocephin/Ns 1 Gm/50 Ml) 1 gm in 50 mls @ 100 mls/hr IV Q24HR [facility]; Protocol Last Admin: 06/09/19 10:12 Dose: 100 mls/hr Documented by: Sodium Bicarbonate 100 meq/ (Dextrose) 1,100 mls @ 75 mls/hr IV DIRECT ELIZABETH Last Admin: 06/08/19 13:43 Dose: 75 mls/hr Documented by: Dextrose/Sodium Chloride (D5ns) 1,000 mls @ 75 mls/hr IV DIRECT ELIZABETH Last Admin: 06/09/19 02:56 Dose: 75 mls/hr Documented by: Insulin Human Lispro (Humalog) 0 unit SUB-Q ACHS ELIZABETH; Protocol Last Admin: 06/09/19 10:09 Dose: Not Given Documented by: Mirtazapine (Remeron) 15 mg PO QHS [facility] Last Admin: 06/08/19 22:54 Dose: Not Given Documented by: Ondansetron HCl (Zofran) 4 mg IV Q8H PRN PRN Reason: Nausea And Vomiting Ondansetron HCl (Zofran) 4 mg IV Q8H PRN PRN Reason: Nausea And Vomiting Oxycodone/Acetaminophen (Percocet 5/325) 1 tab PO Q6H PRN PRN Reason: Pain, Moderate (4-6) Sodium Chloride (Sodium Chloride Flush Syringe 10 Ml) 10 ml IV BID [facility] Last Admin: 06/09/19 10:10 Dose: 10 ml Documented by: Sodium Chloride (Sodium Chloride Flush Syringe 10 Ml) 10 ml IV PRN PRN PRN Reason: LINE FLUSH Last Admin: 06/06/19 17:33 Dose: 10 ml Documented by: Sodium Chloride (Sodium Chloride Flush Syringe 10 Ml) 10 ml IV BID [facility] Last Admin: 06/09/19 10:10 Dose: 10 ml Documented by: Sodium Chloride (Sodium Chloride Flush Syringe 10 Ml) 10 ml IV PRN PRN PRN Reason: LINE FLUSH Tamsulosin HCl (Flomax) 0.4 mg PO QDAY [facility] Last Admin: 06/09/19 10:09 Dose: Not Given Documented by: Vitamin B Complex/Vitamin C ([place] With C) 1 each PO QDAY [facility] Last Admin: 06/09/19 10:09 Dose: Not Given Documented by: Review of Systems ROS unobtainable: due to mental status Physical Examination - Physical Exam Narrative exam: Constitutional: awake, no distress, doesn't follow commands. Head, Ears, Nose: Normocephalic, atraumatic. External ears, nose normal Eyes: Conjunctivae/corneas clear. No icterus. No ptosis. Neck: Supple, no meningeal signs Oral: poor dentition, moist mucous membranes Cardiovascular: S1, S2 normal. Normal rhythm Respiratory: Good air entry, clear to auscultation bilaterally GI: Soft, non-tender; bowel sounds normal. No peritoneal signs Musculoskeletal: No pedal edema Skin: Numerous abrasion and excoriations on all extremities. R thigh bandaged. Hem/Lymphatic: No palpable cervical or supraclavicular nodes. No lymphangitis Psych: no agitation Neurological: Moves all extremities, no focal defects - Constitutional Vitals: Vital Signs Temp Pulse Resp BP Pulse Ox 98.0 F 64 16 168/84 100 06/08/19 13:20 06/08/19 22:00 06/08/19 21:06 06/09/19 00:20 06/08/19 21:06 Temperature -Last 24 Hours Temperature 98.0 F Results - Labs CBC & Chem 7: 06/09/19 07:39 06/09/19 05:02 Labs: Abnormal lab results 06/08/19 06/08/19 06/08/19 Range/Units 17:49 21:47 22:14 WBC (4.5-11.0) K/mm3 Hgb (11.8-15.2) gm/dl Hct (35.5-45.6) % RDW (13.2-15.2) % [place] % (Auto) (0.0-7.3) % Lymph # (1.2-5.4) K/mm3 Seg Neutrophils # (1.8-7.7) K/mm3 BUN (9-20) mg/dL Creatinine (0.8-1.5) mg/dL Glucose (75-100) mg/dL POC Glucose 127 H 161 H (70-105) Hemoglobin A1c 10.8 H (4-6) % Total Protein (6.3-8.2) g/dL Albumin (3.9-5) g/dL 06/09/19 06/09/19 06/09/19 Range/Units 03:12 04:34 05:02 WBC (4.5-11.0) K/mm3 Hgb (11.8-15.2) gm/dl Hct (35.5-45.6) % RDW (13.2-15.2) % [place] % (Auto) (0.0-7.3) % Lymph # (1.2-5.4) K/mm3 Seg Neutrophils # (1.8-7.7) K/mm3 BUN 37 H (9-20) mg/dL Creatinine 2.0 H (0.8-1.5) mg/dL Glucose 176 H (75-100) mg/dL POC Glucose 59 L 163 H (70-105) Hemoglobin A1c (4-6) % Total Protein 5.8 L (6.3-8.2) g/dL Albumin 2.8 L (3.9-5) g/dL 06/09/19 Range/Units 07:39 WBC 3.1 L (4.5-11.0) K/mm3 Hgb 10.6 L (11.8-15.2) gm/dl Hct 31.7 L (35.5-45.6) % RDW 17.0 H (13.2-15.2) % [place] % (Auto) 13.8 H (0.0-7.3) % Lymph # 1.0 L (1.2-5.4) K/mm3 Seg Neutrophils # 1.5 L (1.8-7.7) K/mm3 BUN (9-20) mg/dL Creatinine (0.8-1.5) mg/dL Glucose (75-100) mg/dL POC Glucose (70-105) Hemoglobin A1c (4-6) % Total Protein (6.3-8.2) g/dL Albumin (3.9-5) g/dL - Imaging and Cardiology Chest x-ray: image reviewed (Normal) CT Scan - head: image reviewed (Normal) Assessment and Plan Cultures: Urine Cx: ESBL Klebsiella Blood culture: NGTD A/P: 68 yo M PMHx dementia, malnutrition, GERD, HTN admitted with AMS, ESBL UTI. 1) Severe sepsis secondary to ESBL UTI - ESBL Kelbsiella, sensitive to carb apenems and fluorquinolones. Will start ertapenem for now and stop ceftriaxone. If he responds well can consider discharge on levofloxacin. Renal US - no acute infective processes or stone. L renal cysts 2) Metabolic encephalopathy - remains altered, hopefully will improve with effective antibiotics now that we know the causative organism. CT head normal. 3) Dementia 4) GERD 5) Malnutrition - going for PEG tube at the present time. 6) HTN Recs: -stop ceftriaxone - start ertapenem 1g q24h We will continue to follow with you. We appreciate being involved in Mr. Paulino's care. MD [facility] C: [phone] O: [phone] F: [phone]
[2019-06-09] MEDS ORDERED: NACL 0.9% 1000 ML 1,000 ML IV SCH (11:30)
[2019-06-09] MEDS ORDERED: ANCEF/STERILE WATER 2 GM/20 ML 2 GM/20 ML SYRINGE IV NR (11:30)
--- NOTE | 2019-06-09 12:24 | Anesthesia Consultation ---
Anesthesia Consult and Med Hx Date of service: 06/09/19 - Airway Anesthetic Teeth Evaluation: Edentulous ROM Head & Neck: Adequate Mental/Hyoid Distance: Adequate Mallampati Class: Class II Intubation Access Assessment: Probably Good - Pre-Operative Health Status ASA Pre-Surgery Classification: ASA4 Proposed Anesthetic Plan: MAC - Cardiovascular System Hx Hypertension: Yes Hx Coronary Artery Disease: Yes (cardiomyopathy EF 25-30%) - Central Nervous System Hx Psychiatric Problems: Yes (dementia, altered mental status) - Gastrointestinal Hx Gastroesophageal Reflux Disease: No (dysphagea) - Endocrine Hx Renal Disease: Yes (UTI, urogenic sepsis) - Other Systems Hx Obesity: No (severe malnutrition)
--- NOTE | 2019-06-09 12:30 | Anesthesia Day of Surgery ---
Anesthesia Day of Surgery - Day of Surgery Patient Examined: Yes Patient H&P Reviewed: Yes Patient is NPO: Yes
[2019-06-09] MEDS ORDERED: ANCEF/STERILE WATER 2 GM/20 ML 2 GM/20 ML SYRINGE IV ONE (12:32)
[2019-06-09] MEDS ORDERED: DIPRIVAN 10 MG/ML IV ONE (12:48)
[2019-06-09] MEDS ORDERED: AMIDATE IV ONE (12:49)
[2019-06-09] MEDS ORDERED: ANCEF/STERILE WATER 2 GM/20 ML IV ONE (12:53)
--- NOTE | 2019-06-09 13:34 | Progress Note ---
Assessment and Plan 1. Acute kidney injury: Vasomotor PAPITO superimposed on CKD stage 3 in the setting of volume depletion. Renal US was negative for hydro. Continue IV fluids. Renal function is improving. Monitor renal function. Avoid nephrotoxic agents. Meds dosage based on GFR. 2. FEN: Hyperkalemia, improved. Hypernatremia, improved. Metabolic acidosis, improved. Monitor lytes. 3. UTI: On Ertapenem. 4. Metabolic Encephalopathy. 5. Anemia: POA. 6. Dysphagia: S/p PEG tube. Adult failure to thrive. Subjective Date of service: 06/09/19 Principal diagnosis: Severe malnutrition Interval history: Patient was seen and examined at the bedside. Just returned from GI lab. Objective - Vital Signs Vital signs: Vital Signs - 12hr 06/09/19 06/09/19 06/09/19 09:00 11:30 13:11 Temperature 95.8 F L 96.8 F L Pulse Rate 51 L 57 L Pulse Rate [ 63 Right Brachial] Respiratory 11 L 16 Rate Blood Pressure 122/65 132/75 O2 Sat by Pulse 99 100 100 Oximetry 06/09/19 13:26 Temperature Pulse Rate 54 L Pulse Rate [ Right Brachial] Respiratory 12 Rate Blood Pressure 132/77 O2 Sat by Pulse 100 Oximetry - General Appearance General appearance: well-developed, appears stated age, other (no distress, emaciated) EENT: ATNC, PERRL Neck: other (Trachea midline) Respiratory: Present: Clear to Ascultation Cardiology: regular, S1S2, no murmurs Gastrointestinal: normoactive bowel sounds, no tenderness, no distended, other (PEG tube noted) Neurologic: other (opens eyes, not following any command) Musculoskeletal: other (no edema) - Lab 06/09/19 07:39 06/09/19 05:02 Most recent lab results Calcium 8.9 mg/dL (8.4-10.2) 06/09/19 05:02 Phosphorus 3.80 mg/dL (2.5-4.5) 06/06/19 04:22 Magnesium 2.60 mg/dL (1.7-2.3) H 06/06/19 04:22 102.7 mg/dL (0.1-20.0) H 06/06/19 17:37 47 mmol/L 06/06/19 17:37 Medications & Allergies - Medications Allergies/Adverse Reactions: Allergies No Known Allergies Allergy (Verified 05/19/19 22:08) Home Medications: Home Medications Medication Instructions Recorded Confirmed Last Taken Type Cholestyramine/Aspartame 239.4 mg PO TID 05/20/19 06/05/19 Unknown History [Cholestyramine Light Powder] Famotidine [Pepcid] 20 mg PO BID 05/20/19 06/05/19 Unknown History Ferrous Gluconate [Fergon 240 MG 240 mg PO BID 05/20/19 06/05/19 Unknown History tab] Finasteride [Proscar] 5 mg PO DAILY 05/20/19 06/05/19 Unknown History Mirtazapine [Remeron 15mg TAB] 15 mg PO QHS 05/20/19 06/05/19 Unknown History Tamsulosin [Flomax] 0.4 mg PO QDAY 05/20/19 06/05/19 Unknown History Vitamin B Complex [B Complex] 1 each PO DAILY 05/20/19 06/05/19 Unknown History Aspirin EC 81 mg PO QDAY tablet 05/22/19 06/05/19 Unknown Rx Insulin Regular, Human [HumuLIN R] 0 units SUB-Q ACHS units 05/22/19 06/05/19 Unknown Rx Megestrol [Megace] 400 mg PO QDAY oral.liqd 05/22/19 06/05/19 Unknown Rx Insulin NPH/Regular [NovoLIN 70/30] 10 unit SQ BIDDIAB #1 vial 05/27/19 06/05/19 Unknown Rx Metoprolol [Lopressor TAB] 12.5 mg PO BID #60 tablet 05/27/19 06/05/19 Unknown Rx amLODIPine [Norvasc] 10 mg PO QDAY #60 tablet 05/27/19 06/05/19 Unknown Rx Active Medications: Generic Name Dose Route Start Last Admin Trade Name Freq PRN Reason Stop Dose Admin Acetaminophen 650 mg 06/08/19 14:58 Tylenol PO Q4H PRN Pain MILD(1-3)/Fever >100.5/POLANCO Albuterol 2.5 mg 06/05/19 14:00 Proventil IH Q4HRT PRN Shortness Of Breath Aspirin 81 mg 06/06/19 10:00 06/09/19 10:09 Halfprin Ec PO Not Given QDAY ELIZABETH Cholestyramine Resin 4 gm 06/05/19 20:00 06/09/19 08:02 Questran PO Not Given TID ELIZABETH Dextrose 50 ml 06/05/19 14:03 06/09/19 03:09 D50w (25gm) Syringe IV 50 ml PRN PRN Administration Hypoglycemia Famotidine 20 mg 06/05/19 22:00 06/09/19 10:09 Pepcid PO Not Given DAILY [facility] Ferrous Gluconate 324 mg 06/05/19 22:00 06/09/19 10:09 Fergon PO Not Given BID [facility] Finasteride 5 mg 06/06/19 10:00 06/09/19 10:10 Proscar PO Not Given DAILY [facility] Heparin Sodium (Porcine) 5,000 unit 06/09/19 22:00 Heparin SUB-Q Q12HR [facility] Hydralazine HCl 10 mg 06/07/19 14:00 06/07/19 13:42 Apresoline IV 10 mg Q3HR PRN Administration Elevated BP Hydromorphone HCl 0.5 mg 06/08/19 14:58 Dilaudid IV Q3H PRN Pain , Severe (7-10) Sodium Bicarbonate 100 meq/ 1,100 mls @ 75 mls/hr 06/06/19 13:00 06/08/19 13:43 Dextrose IV 75 mls/hr DIRECT ELIZABETH Administration Dextrose/Sodium Chloride 1,000 mls @ 75 mls/hr 06/08/19 15:00 06/09/19 02:56 D5ns IV 75 mls/hr DIRECT ELIZABETH Administration Sodium Chloride 1,000 mls @ 50 mls/hr 06/09/19 11:30 Nacl 0.9% 1000 Ml IV DIRECT ELIZABETH Cefazolin Sodium 2 gm in 20 mls @ 80 mls/hr 06/09/19 11:30 Ancef/Sterile Water 2 Gm/20 Ml IV 06/09/19 23:59 PREOP NR Protocol Ertapenem 1 gm/ Sodium 50 mls @ 100 mls/hr 06/09/19 13:00 Chloride IV Q24H [facility] Insulin Human Lispro 0 unit 06/05/19 16:30 06/09/19 10:09 Humalog SUB-Q Not Given ACHS [facility] Protocol Mirtazapine 15 mg 06/05/19 22:00 06/08/19 22:54 Remeron PO Not Given QHS [facility] Ondansetron HCl 4 mg 06/08/19 14:58 Zofran IV Q8H PRN Nausea And Vomiting Oxycodone/Acetaminophen 1 tab 06/08/19 14:58 Percocet 5/325 PO Q6H PRN Pain, Moderate (4-6) Sodium Chloride 10 ml 06/05/19 22:00 06/09/19 10:10 Sodium Chloride Flush Syringe 10 Ml IV 10 ml BID ELIZABETH Administration Sodium Chloride 10 ml 06/05/19 14:00 06/06/19 17:33 Sodium Chloride Flush Syringe 10 Ml IV 10 ml PRN PRN Administration LINE FLUSH Sodium Chloride 10 ml 06/08/19 22:00 06/09/19 10:10 Sodium Chloride Flush Syringe 10 Ml IV 10 ml BID ELIZABETH Administration Sodium Chloride 10 ml 06/08/19 14:58 Sodium Chloride Flush Syringe 10 Ml IV PRN PRN LINE FLUSH Tamsulosin HCl 0.4 mg 06/06/19 10:00 06/09/19 10:09 Flomax PO Not Given QDAY [facility] Vitamin B Complex/Vitamin C 1 each 06/06/19 10:00 06/09/19 10:09 Allbee With C PO Not Given QDAY [facility]
[2019-06-09] MEDS: INVanz 1 GM in NACL 0.9% 50 ML IV SCH (14:10)
--- NOTE | 2019-06-09 15:29 | Consultation ---
HISTORY OF PRESENT ILLNESS: A 68-year-old -[place] gentleman with an underlying history of diabetes, CVA with poor swallowing function, adult failure to thrive, underlying history of renal insufficiency and diabetes mellitus. The patient is being assessed because of his poor swallowing function and adult failure to thrive for a PEG placement to help with his long-term nutrition. Also, because he has had poor oral intake, he was presented to the hospital with low blood pressure. The patient is alert, but not oriented, bedbound and appears to be cachectic. ALLERGIES: He has no known allergies. PHYSICAL EXAMINATION: VITAL SIGNS: Stable. Blood pressure is 146/67. He has a normal heart rate of 71, temperature is 97.8. HEENT: Shows no JVD. LUNGS: Shows reduced breath sounds. CARDIOVASCULAR: Grossly normal. ABDOMEN: Cachectic. Bowel sounds present. EXTREMITIES: No pedal edema. NEUROLOGIC: He is alert, but not oriented. He does have an elevated renal function with a BUN of 38, creatinine of 2.2. Electrolytes are otherwise normal. ASSESSMENT: Poor oral intake, adult failure to thrive with cachexia, history of cerebrovascular accident, hypertension, diabetes. PLAN: To do an EGD and a PEG placement in the a.m. to help with his long-term nutrition. Procedure has been discussed with the patient's son and patient's son is willing and has given telephone permission to proceed with the tube placement, which is to be done in the a.m. Thank you for the kind referral. Thank you for the consult. JOB# [id number] AYAD/LEON MUELLER
[2019-06-09] MEDS ORDERED: SIMPLE SYRUP FEEDTUBE PRN ×2 (16:01)
[2019-06-09] MEDS ORDERED: PANCREAZE DR 10,500 UNIT FEEDTUBE PRN (16:01)
[2019-06-09] MEDS ORDERED: SODIUM BICARBONATE FEEDTUBE PRN (16:01)
--- NOTE | 2019-06-09 16:05 | Operative Report ---
PROCEDURE: Esophagogastroduodenoscopy and PEG done. INDICATIONS: A 68-year-old -[place] gentleman with an underlying history of CVA, diabetes, and hypertension. EGD and PEG was done to help with his long-term nutrition. The patient has an underlying history of adult failure to thrive. DESCRIPTION OF PROCEDURE: The procedure was done after getting informed consent. With MAC anesthesia, Ancef 2 g IV was given as prophylaxis. Instrument was passed through the hypopharynx into the esophagus, which showed normal mucosa. Stomach appeared normal in the straight and the retroverted view. The pylorus was patent. Duodenum in the first and second portion appeared normal. There was a large amount of gastric fluid present within the gastric lumen, which was suctioned out. The anterior abdominal wall was cleaned and draped in standard fashion. It was infiltrated with a local anesthetic. A small incision was made. Trocar from the 20-Slovenian kit was passed through the incision into the cavity of the stomach. Wire was passed through the hollow of the trocar, which was then caught with the polypectomy snare and brought out through the mouth. This was then tied to the 20-Slovenian tube, which was then pulled into place. The skin marking was at 2 cm. ASSESSMENT: Adult failure to thrive, history of cerebrovascular accident with poor swallowing function, status post PEG placement, patent pylorus. The patient will be asked to avoid aspirin and aspirin-related products for the next few days. Have a loose abdominal binder. The PEG may be used in an hour's time for medication and in 4 hours for feeding. There was minimal bleeding from the PEG tube placement and no complications associated with it. The procedure was done with assistance of anesthesia and in the presence and with the assistance of the GI lab team, which included Olesya HUERTAS as well as Tanner ta. Thank you for the kind referral. JOB# [id number] AYAD/LEON
[2019-06-09] MEDS ORDERED: HEPARIN SUB-Q SCH (22:00)
--- NOTE | 2019-06-09 22:00 | Consultation ---
History of Present Illness Consult date: 06/05/19 (Late Entry) Requesting physician: CHARISSE HOLLIS Reason for Consult: AMS Chief complaint: AMS History of present illness: [facility] STAT Neurology Consult Date of Service: 06/05/2019 Chief Complaint: AMS HPI: Asked to see this patient in telemedicine consultation using interactive audio and video technologies. ?Consultation was performed with assistance of ancillary / medical staff at bedside. ? 68-year-old -Citizen Of [place] male who was brought to the ER for unresponsiveness and altered mental status. There is currently no family at bedside. History and information were obtained through discussions with the ER attending. Apparently, the patient was recently discharged from the hospital 10 days ago for altered mental status and he was treated for dehydration. Patient apparently lives alone. He was last known well by his son around 6 PM the previous evening. Then this morning, the patient was severely altered and lethargic. He was nonverbal and would not talk. He was noted to be si gnificantly hypothermic with an initial temperature of 89 F, and is currently in a bear hugger. He also initially had severe hypoglycemia where the glucometer registered as "low." He got boluses of D50, and his blood sugars had improved to around 125. Staff had also noted some type of right gaze preference at times. He does spontaneously move all his limbs and is very strong according to the nurse. He is currently in bilateral wrist restraints due to his agitation and trying to get out of the ER stretcher. No other modifying factors. No other associated symptoms. PMH: Dementia, GERD, and hypertension SOC: Lives alone. FMH: Unknown. ROS: Unobtainable at this time due to his altered mental status. No family at bedside. VS: Temperature is 89.2 F, pulse 68, blood pressure 122/73, oxygen saturation 92% Exam: Patient is in no apparent distress. Patient appears older than stated age. Thin and chronically ill appearing. No obvious acute respiratory or cardiac distress. Patient is lethargic and arousable. He is non-verbal. Does not follow any commands. Attention and concentration are impaired. Recent and remote memories are impaired. Cranial nerves: PERRL; he localizes to voice bilaterally; no obvious gaze preference; no facial asymmetries. No focal motor asymmetries. He is diffusely weak. Will spontaneously move all his extremities. No abnormal movements. Diagnostic Data: CT of the head showed no acute intracranial process; there is noted to be prior left frontal encephalomalacia and a prior left cerebellar/PICA stroke. Creatinine 2.4 Medical Data Reviewed:? 1.Data?reviewed include clinical labs, radiology,?and medical tests;?? 2.Tests?results discussed w/performing or interpreting physician;?? 3.Obtaining/reviewing old medical records;? 4.Obtaining?case history from another source;? 5.Independent?review of image, tracing, or specimen.? Medical Decision Making:? - Extensive number of diagnosis or management options are considered below.?? - Extensive amount of complex data reviewed.?? - High risk of complication and/or morbidity or mortality are associated with differential diagnostic considerations below.? - There may be?uncertain?outcome and increased probability of prolonged functional impairment or high probability of severe prolonged functional impairment associated with some of these differential diagnosis.? Assessment: 1. Acute metabolic encephalopathy 2. Possible sepsis (with severe hypothermia and hypoglycemia) 3. Acute kidney injury 4. Prior stroke 5. Dementia 6. Hypertension 7. GERD Recommendations: Further metabolic and infectious work-up per primary team. Reasonable to obtain a MRI brain without contrast to rule any acute intracranial process. Consult local neurology team to assist with evaluation and management. Continue supportive care. Case and disposition were discussed with the ER attending. Thank you for allowing [facility] to participate in the care of your patient. Please call me, Dr. More, with any questions at [phone]. Past History Past Medical History: GERD, hypertension, hyperlipidemia, other ([place], Malnutrition) Past Surgical History: No surgical history Social history: Family history: no significant family history (reviewed) Medications and Allergies Allergies Allergy/AdvReac Type Severity Reaction Status Date / Time No Known Allergies Allergy Verified 05/19/19 22:08 Home Medications Medication Instructions Recorded Confirmed Last Taken Type Cholestyramine/Aspartame 239.4 mg PO TID 05/20/19 06/05/19 Unknown History [Cholestyramine Light Powder] Famotidine [Pepcid] 20 mg PO BID 05/20/19 06/05/19 Unknown History Ferrous Gluconate [Fergon 240 MG 240 mg PO BID 05/20/19 06/05/19 Unknown History tab] Finasteride [Proscar] 5 mg PO DAILY 05/20/19 06/05/19 Unknown History Mirtazapine [Remeron 15mg TAB] 15 mg PO QHS 05/20/19 06/05/19 Unknown History Tamsulosin [Flomax] 0.4 mg PO QDAY 05/20/19 06/05/19 Unknown History Vitamin B Complex [B Complex] 1 each PO DAILY 05/20/19 06/05/19 Unknown History Aspirin EC 81 mg PO QDAY tablet 05/22/19 06/05/19 Unknown Rx Insulin Regular, Human [HumuLIN R] 0 units SUB-Q ACHS units 05/22/19 06/05/19 Unknown Rx Megestrol [Megace] 400 mg PO QDAY oral.liqd 05/22/19 06/05/19 Unknown Rx Insulin NPH/Regular [NovoLIN 70/30] 10 unit SQ BIDDIAB #1 vial 05/27/19 06/05/19 Unknown Rx Metoprolol [Lopressor TAB] 12.5 mg PO BID #60 tablet 05/27/19 06/05/19 Unknown Rx amLODIPine [Norvasc] 10 mg PO QDAY #60 tablet 05/27/19 06/05/19 Unknown Rx Active Meds: Active Medications Acetaminophen (Tylenol) 650 mg PO Q4H PRN PRN Reason: Pain MILD(1-3)/Fever >100.5/POLANCO Albuterol (Proventil) 2.5 mg IH Q4HRT PRN PRN Reason: Shortness Of Breath Lipase/Protease/Amylase (Pancreaze Dr 10,500 Unit) 1 each FEEDTUBE PRN PRN PRN Reason: For Clogged Feeding Tube Aspirin (Baby Aspirin) 81 mg PO QDAY [facility] Cholestyramine Resin (Questran) 4 gm PO TID [facility] Last Admin: 06/09/19 14:09 Dose: Not Given Documented by: Dextrose (D50w (25gm) Syringe) 50 ml IV PRN PRN PRN Reason: Hypoglycemia Last Admin: 06/09/19 03:09 Dose: 50 ml Documented by: Famotidine (Pepcid) 20 mg PO DAILY [facility] Last Admin: 06/09/19 10:09 Dose: Not Given Documented by: Ferrous Gluconate (Fergon) 324 mg PO BID [facility] Last Admin: 06/09/19 10:09 Dose: Not Given Documented by: Finasteride (Proscar) 5 mg PO DAILY [facility] Last Admin: 06/09/19 10:10 Dose: Not Given Documented by: Heparin Sodium (Porcine) (Heparin) 5,000 unit SUB-Q Q12HR [facility] Hydralazine HCl (Apresoline) 10 mg IV Q3HR PRN PRN Reason: Elevated BP Last Admin: 06/07/19 13:42 Dose: 10 mg Documented by: Hydromorphone HCl (Dilaudid) 0.5 mg IV Q3H PRN PRN Reason: Pain , Severe (7-10) Sodium Bicarbonate 100 meq/ (Dextrose) 1,100 mls @ 75 mls/hr IV DIRECT [facility]ABETH Last Admin: 06/08/19 13:43 Dose: 75 mls/hr Documented by: Dextrose/Sodium Chloride (D5ns) 1,000 mls @ 75 mls/hr IV DIRECT ELIZABETH Last Admin: 06/09/19 17:57 Dose: 75 mls/hr Documented by: Cefazolin Sodium (Ancef/Sterile Water 2 Gm/20 Ml) 2 gm in 20 mls @ 80 mls/hr IV PREOP NR; Protocol Stop: 06/09/19 23:59 Ertapenem 1 gm/ Sodium (Chloride) 50 mls @ 100 mls/hr IV Q24H [facility] Last Admin: 06/09/19 14:10 Dose: 100 mls/hr Documented by: Insulin Human Lispro (Humalog) 0 unit SUB-Q ACHS ELIZABETH; Protocol Last Admin: 06/09/19 17:54 Dose: 3 unit Documented by: Mirtazapine (Remeron) 15 mg PO QHS [facility] Last Admin: 06/08/19 22:54 Dose: Not Given Documented by: Ondansetron HCl (Zofran) 4 mg IV Q8H PRN PRN Reason: Nausea And Vomiting Oxycodone/Acetaminophen (Percocet 5/325) 1 tab PO Q6H PRN PRN Reason: Pain, Moderate (4-6) Simple Syrup (Simple Syrup) 15 ml FEEDTUBE PRN PRN PRN Reason: Hypoglycemia Simple Syrup (Simple Syrup) 30 ml FEEDTUBE PRN PRN PRN Reason: Hypoglycemia Sodium Bicarbonate (Sodium Bicarbonate) 325 mg FEEDTUBE PRN PRN PRN Reason: For Clogged Feeding Tube Sodium Chloride (Sodium Chloride Flush Syringe 10 Ml) 10 ml IV BID [facility] Last Admin: 06/09/19 10:10 Dose: 10 ml Documented by: Sodium Chloride (Sodium Chloride Flush Syringe 10 Ml) 10 ml IV PRN PRN PRN Reason: LINE FLUSH Last Admin: 06/06/19 17:33 Dose: 10 ml Documented by: Sodium Chloride (Sodium Chloride Flush Syringe 10 Ml) 10 ml IV BID [facility] Last Admin: 06/09/19 10:10 Dose: 10 ml Documented by: Sodium Chloride (Sodium Chloride Flush Syringe 10 Ml) 10 ml IV PRN PRN PRN Reason: LINE FLUSH Tamsulosin HCl (Flomax) 0.4 mg PO QDAY [facility] Last Admin: 06/09/19 10:09 Dose: Not Given Documented by: Vitamin B Complex/Vitamin C (Allbee With C) 1 each PO QDAY [facility] Last Admin: 06/09/19 10:09 Dose: Not Given Documented by: Physical Examination - Vital Signs Vital Signs: Vital Signs Temp Pulse Resp BP Pulse Ox 89.0 F L 84 22 141/77 95 06/05/19 10:39 06/05/19 10:39 06/05/19 10:39 06/05/19 10:39 06/05/19 10:39 Results - Laboratory Findings CBC and BMP: 06/09/19 07:39 06/09/19 05:02 Abnormal Lab Findings: Abnormal Labs 06/05/19 06/05/19 06/05/19 10:24 11:11 11:11 WBC Hgb 11.2 L Hct 33.2 L RDW 17.3 H [place] % (Auto) Lymph # 0.9 L Seg Neutrophils % 76.0 H Seg Neutrophils # APTT 37.7 H Sodium Potassium Chloride Carbon Dioxide BUN Creatinine Glucose POC Glucose 125 H Hemoglobin A1c Lactic Acid Magnesium AST Alkaline Phosphatase Troponin T Total Protein Albumin HDL Cholesterol Urine WBC (Auto) Urine Creatinine 06/05/19 06/05/19 06/05/19 11:11 11:11 11:36 WBC Hgb Hct RDW [place] % (Auto) Lymph # Seg Neutrophils % Seg Neutrophils # APTT Sodium 147 H Potassium Chloride 115.9 H Carbon Dioxide 18 L BUN 45 H Creatinine 2.4 H Glucose 118 H POC Glucose 109 H Hemoglobin A1c Lactic Acid 0.50 L Magnesium AST Alkaline Phosphatase 147 H Troponin T 0.047 H Total Protein Albumin 3.5 L HDL Cholesterol 115 H Urine WBC (Auto) Urine Creatinine 06/05/19 06/05/19 06/05/19 13:21 14:03 16:16 WBC Hgb Hct RDW [place] % (Auto) Lymph # Seg Neutrophils % Seg Neutrophils # APTT Sodium Potassium Chloride Carbon Dioxide BUN Creatinine Glucose POC Glucose 56 L Hemoglobin A1c Lactic Acid 0.50 L Magnesium AST Alkaline Phosphatase Troponin T Total Protein Albumin HDL Cholesterol Urine WBC (Auto) 14.0 H Urine Creatinine 06/05/19 06/05/19 06/05/19 18:52 19:38 20:07 WBC Hgb Hct RDW [place] % (Auto) Lymph # Seg Neutrophils % Seg Neutrophils # APTT Sodium Potassium Chloride Carbon Dioxide BUN Creatinine Glucose 128 H POC Glucose < 40 L 140 H Hemoglobin A1c Lactic Acid Magnesium AST Alkaline Phosphatase Troponin T Total Protein Albumin HDL Cholesterol Urine WBC (Auto) Urine Creatinine 06/05/19 06/06/19 06/06/19 21:46 02:06 04:22 WBC Hgb Hct RDW 18.1 H [place] % (Auto) Lymph # Seg Neutrophils % 71.8 H Seg Neutrophils # APTT Sodium Potassium Chloride Carbon Dioxide BUN Creatinine Glucose POC Glucose 141 H 213 H Hemoglobin A1c Lactic Acid Magnesium AST Alkaline Phosphatase Troponin T Total Protein Albumin HDL Cholesterol Urine WBC (Auto) Urine Creatinine 06/06/19 06/06/19 06/06/19 04:22 05:20 07:42 WBC Hgb Hct RDW [place] % (Auto) Lymph # Seg Neutrophils % Seg Neutrophils # APTT Sodium Potassium 5.1 H Chloride 112.2 H Carbon Dioxide 13 L BUN 44 H Creatinine 2.3 H Glucose 182 H POC Glucose 237 H 247 H Hemoglobin A1c Lactic Acid Magnesium 2.60 H AST 45 H Alkaline Phosphatase 164 H Troponin T Total Protein Albumin 3.5 L HDL Cholesterol Urine WBC (Auto) Urine Creatinine 06/06/19 06/06/19 06/06/19 10:48 13:19 17:34 WBC Hgb Hct RDW [place] % (Auto) Lymph # Seg Neutrophils % Seg Neutrophils # APTT Sodium Potassium Chloride Carbon Dioxide BUN Creatinine Glucose POC Glucose 167 H 108 H < 40 L Hemoglobin A1c Lactic Acid Magnesium AST Alkaline Phosphatase Troponin T Total Protein Albumin HDL Cholesterol Urine WBC (Auto) Urine Creatinine 06/06/19 06/06/19 06/06/19 17:37 18:10 20:50 WBC Hgb Hct RDW [place] % (Auto) Lymph # Seg Neutrophils % Seg Neutrophils # APTT Sodium Potassium Chloride Carbon Dioxide BUN Creatinine Glucose 71 L POC Glucose 227 H Hemoglobin A1c Lactic Acid Magnesium AST Alkaline Phosphatase Troponin T Total Protein Albumin HDL Cholesterol Urine WBC (Auto) Urine Creatinine 102.7 H 06/07/19 06/07/19 06/07/19 02:36 05:40 07:59 WBC Hgb Hct RDW [place] % (Auto) Lymph # Seg Neutrophils % Seg Neutrophils # APTT Sodium Potassium Chloride Carbon Dioxide BUN Creatinine Glucose POC Glucose 144 H 183 H 207 H Hemoglobin A1c Lactic Acid Magnesium AST Alkaline Phosphatase Troponin T Total Protein Albumin HDL Cholesterol Urine WBC (Auto) Urine Creatinine 06/07/19 06/07/19 06/07/19 11:40 14:35 15:12 WBC Hgb Hct RDW [place] % (Auto) Lymph # Seg Neutrophils % Seg Neutrophils # APTT Sodium Potassium Chloride Carbon Dioxide BUN 40 H Creatinine 2.2 H Glucose 154 H POC Glucose 160 H 164 H Hemoglobin A1c Lactic Acid Magnesium AST Alkaline Phosphatase Troponin T Total Protein Albumin HDL Cholesterol Urine WBC (Auto) Urine Creatinine 06/07/19 06/07/19 06/08/19 16:35 21:43 02:00 WBC Hgb Hct RDW [place] % (Auto) Lymph # Seg Neutrophils % Seg Neutrophils # APTT Sodium Potassium Chloride Carbon Dioxide BUN Creatinine Glucose POC Glucose 181 H 62 L 126 H Hemoglobin A1c Lactic Acid Magnesium AST Alkaline Phosphatase Troponin T Total Protein Albumin HDL Cholesterol Urine WBC (Auto) Urine Creatinine 06/08/19 06/08/19 06/08/19 05:46 05:55 05:55 WBC 3.1 L Hgb 10.8 L Hct 31.6 L D RDW 16.8 H [place] % (Auto) 14.3 H Lymph # 0.9 L Seg Neutrophils % Seg Neutrophils # 1.6 L APTT Sodium Potassium Chloride Carbon Dioxide 21 L BUN 38 H Creatinine 2.2 H Glucose 167 H POC Glucose 147 H Hemoglobin A1c Lactic Acid Magnesium AST Alkaline Phosphatase 130 H Troponin T Total Protein 6.2 L Albumin 3.0 L HDL Cholesterol Urine WBC (Auto) Urine Creatinine 06/08/19 06/08/19 06/08/19 07:48 17:49 21:47 WBC Hgb Hct RDW [place] % (Auto) Lymph # Seg Neutrophils % Seg Neutrophils # APTT Sodium Potassium Chloride Carbon Dioxide BUN Creatinine Glucose POC Glucose 179 H 127 H 161 H Hemoglobin A1c Lactic Acid Magnesium AST Alkaline Phosphatase Troponin T Total Protein Albumin HDL Cholesterol Urine WBC (Auto) Urine Creatinine 06/08/19 06/09/19 06/09/19 22:14 03:12 04:34 WBC Hgb Hct RDW [place] % (Auto) Lymph # Seg Neutrophils % Seg Neutrophils # APTT Sodium Potassium Chloride Carbon Dioxide BUN Creatinine Glucose POC Glucose 59 L 163 H Hemoglobin A1c 10.8 H Lactic Acid Magnesium AST Alkaline Phosphatase Troponin T Total Protein Albumin HDL Cholesterol Urine WBC (Auto) Urine Creatinine 06/09/19 06/09/19 06/09/19 05:02 07:39 08:34 WBC 3.1 L Hgb 10.6 L Hct 31.7 L RDW 17.0 H [place] % (Auto) 13.8 H Lymph # 1.0 L Seg Neutrophils % Seg Neutrophils # 1.5 L APTT Sodium Potassium Chloride Carbon Dioxide BUN 37 H Creatinine 2.0 H Glucose 176 H POC Glucose 206 H Hemoglobin A1c Lactic Acid Magnesium AST Alkaline Phosphatase Troponin T Total Protein 5.8 L Albumin 2.8 L HDL Cholesterol Urine WBC (Auto) Urine Creatinine 06/09/19 06/09/19 17:55 21:36 WBC Hgb Hct RDW [place] % (Auto) Lymph # Seg Neutrophils % Seg Neutrophils # APTT Sodium Potassium Chloride Carbon Dioxide BUN Creatinine Glucose POC Glucose 265 H 132 H Hemoglobin A1c Lactic Acid Magnesium AST Alkaline Phosphatase Troponin T Total Protein Albumin HDL Cholesterol Urine WBC (Auto) Urine Creatinine
[2019-06-09] MEDS: REMERON PO SCH (22:23)
[2019-06-10 05:56] LABS: Hematocrit 29.6 % (35.5-45.6); Mean Corpuscular HGB Conc 34 % (32-34); Mean Corpuscular Volume 85 fl (84-94); Platelet Count 167 K/mm3 (140-440); Red Blood Count 3.47 M/mm3 (3.65-5.03); Red Cell Distribution Width 16.9 % (13.2-15.2)
[2019-06-10 06:21] LABS: Calcium 8.7 mg/dL (8.4-10.2)
[2019-06-10] MEDS: D5NS 1,000 ML IV SCH (08:53)
[2019-06-10] MEDS: HumaLOG SUB-Q SCH ×4 (08:53→22:10)
[2019-06-10] MEDS: FLOMAX PO SCH ×2 (08:53→10:00)
[2019-06-10] MEDS: PEPCID PO SCH ×2 (08:54→10:00)
[2019-06-10] MEDS: FERGON PO SCH ×3 (08:54→22:09)
[2019-06-10] MEDS: ALLBEE WITH C PO SCH ×2 (08:54→11:56)
[2019-06-10] MEDS: PROSCAR PO SCH ×2 (08:54→10:00)
[2019-06-10] MEDS: QUESTRAN PO SCH ×3 (08:54→20:10)
[2019-06-10] MEDS: KCL 10MEQ/100ML 10 MEQ/100 ML BAG IV SCH ×2 (08:55→13:06)
[2019-06-10] MEDS: SODIUM CHLORIDE FLUSH SYRINGE 10 ML IV SCH ×5 (08:55→22:23)
--- NOTE | 2019-06-10 09:18 | Progress Note ---
Assessment and Plan Cultures: Urine Cx: ESBL Klebsiella Blood culture: NGTD A/P: 68 yo M PMHx dementia, malnutrition, GERD, HTN admitted with AMS, ESBL UTI. 1) Severe sepsis secondary to ESBL UTI - Improved. ESBL Kelbsiella, sensitive to carbapenems and fluorquinolones. Will start ertapenem for now and stop ceftriaxone. If he responds well can consider discharge on levofloxacin. Renal US - no acute infective processes or stone. L renal cysts 2) Metabolic encephalopathy - remains altered, hopefully will improve with effective antibiotics now that we know the causative organism. CT head normal. Neurology following. 3) Dementia 4) GERD 5) Malnutrition - s/p EGD and Peg placement 06/09/19 6) HTN Recs: -Continue ertapenem 1gm IV every 24, D2 -When clinacally improved, anticipate discharge on levofloxacin [facility] M: [phone] O:[phone] Subjective Date of service: 06/10/19 Principal diagnosis: Severe malnutrition Interval history: Patient seen and examined. Asleep, Eyes briefly opened with stimulation. No fevers. Objective - Exam Narrative Exam: Constitutional: Somnolent. Unable to arouse. Head, Ears, Nose: Normocephalic, atraumatic. External ears, nose normal Eyes: Conjunctivae/corneas clear. No icterus. No ptosis. Neck: Supple, no meningeal signs Oral: poor dentition, moist mucous membranes Cardiovascular: S1, S2 normal. Normal rhythm Respiratory: Good air entry, clear to auscultation bilaterally GI: Soft, non-tender. +peg tube, abdominal band Musculoskeletal: No pedal edema Skin: Numerous abrasion and excoriations on all extremities. R thigh bandaged. Hem/Lymphatic: No palpable cervical or supraclavicular nodes. No lymphangitis Psych: somnolent Neurological: somnolent - Constitutional Vitals: Vital Signs Temp Pulse Resp BP Pulse Ox 97.6 F 57 L 18 137/70 100 06/10/19 07:58 06/10/19 07:58 06/10/19 07:58 06/10/19 07:58 06/10/19 07:58 Temperature -Last 24 Hours Temperature 97.6 F Temperature 96.8 F Temperature 95.8 F Temperature 95.8 F - Labs CBC & Chem 7: 06/10/19 05:20 06/10/19 05:20 Labs: Abnormal lab results 06/09/19 06/09/19 06/09/19 Range/Units 08:34 17:55 21:36 WBC (4.5-11.0) K/mm3 RBC (3.65-5.03) M/mm3 Hgb (11.8-15.2) gm/dl Hct (35.5-45.6) % RDW (13.2-15.2) % Potassium (3.6-5.0) mmol/L BUN (9-20) mg/dL Creatinine (0.8-1.5) mg/dL Glucose (75-100) mg/dL POC Glucose 206 H 265 H 132 H (70-105) 06/10/19 06/10/19 06/10/19 Range/Units 05:20 05:20 07:00 WBC 4.4 L (4.5-11.0) K/mm3 RBC 3.47 L (3.65-5.03) M/mm3 Hgb 10.0 L (11.8-15.2) gm/dl Hct 29.6 L (35.5-45.6) % RDW 16.9 H (13.2-15.2) % Potassium 3.3 L (3.6-5.0) mmol/L BUN 34 H (9-20) mg/dL Creatinine 2.0 H (0.8-1.5) mg/dL Glucose 212 H (75-100) mg/dL POC Glucose 249 H (70-105)
--- NOTE | 2019-06-10 10:10 | Progress Note ---
Assessment and Plan 1. Acute kidney injury: Vasomotor PAPITO superimposed on CKD stage 3 in the setting of volume depletion. Renal US was negative for hydro. Continue IV fluids. Renal function is improving. Monitor renal function. Avoid nephrotoxic agents. Meds dosage based on GFR. 2. FEN: Hypokalemia, replete K. Hypernatremia, improved. Metabolic acidosis, improved. Monitor lytes. 3. UTI: On Ertapenem. 4. Metabolic Encephalopathy. 5. Anemia: POA. 6. Dysphagia: S/p PEG tube. Adult failure to thrive. Subjective Date of service: 06/10/19 Principal diagnosis: Severe malnutrition Interval history: Patient was seen and examined at the bedside. Objective - Vital Signs Vital signs: Vital Signs - 12hr 06/10/19 06/10/19 01:41 07:58 Temperature 97.6 F Pulse Rate 52 L 57 L Respiratory 10 L 18 Rate Blood Pressure 119/52 137/70 O2 Sat by Pulse 100 100 Oximetry - General Appearance General appearance: well-developed, appears stated age, other (no distress, on restrains) EENT: ATNC Neck: other (Trachea midline) Respiratory: Present: Clear to Ascultation Cardiology: regular, S1S2, no murmurs Gastrointestinal: normoactive bowel sounds, no tenderness, other (PEG tube noted) Integumentary: no rash Neurologic: other (opens eyes, non-verbal, not following any command) Musculoskeletal: other (no edema) - Lab 06/10/19 05:20 06/10/19 05:20 Most recent lab results Calcium 8.7 mg/dL (8.4-10.2) 06/10/19 05:20 Phosphorus 3.80 mg/dL (2.5-4.5) 06/06/19 04:22 Magnesium 2.60 mg/dL (1.7-2.3) H 06/06/19 04:22 102.7 mg/dL (0.1-20.0) H 06/06/19 17:37 47 mmol/L 06/06/19 17:37 Medications & Allergies - Medications Allergies/Adverse Reactions: Allergies No Known Allergies Allergy (Verified 05/19/19 22:08) Home Medications: Home Medications Medication Instructions Recorded Confirmed Last Taken Type Cholestyramine/Aspartame 239.4 mg PO TID 05/20/19 06/05/19 Unknown History [Cholestyramine Light Powder] Famotidine [Pepcid] 20 mg PO BID 05/20/19 06/05/19 Unknown History Ferrous Gluconate [Fergon 240 MG 240 mg PO BID 05/20/19 06/05/19 Unknown History tab] Finasteride [Proscar] 5 mg PO DAILY 05/20/19 06/05/19 Unknown History Mirtazapine [Remeron 15mg TAB] 15 mg PO QHS 05/20/19 06/05/19 Unknown History Tamsulosin [Flomax] 0.4 mg PO QDAY 05/20/19 06/05/19 Unknown History Vitamin B Complex [B Complex] 1 each PO DAILY 05/20/19 06/05/19 Unknown History Aspirin EC 81 mg PO QDAY tablet 05/22/19 06/05/19 Unknown Rx Insulin Regular, Human [HumuLIN R] 0 units SUB-Q ACHS units 05/22/19 06/05/19 Unknown Rx Megestrol [Megace] 400 mg PO QDAY oral.liqd 05/22/19 06/05/19 Unknown Rx Insulin NPH/Regular [NovoLIN 70/30] 10 unit SQ BIDDIAB #1 vial 05/27/19 06/05/19 Unknown Rx Metoprolol [Lopressor TAB] 12.5 mg PO BID #60 tablet 05/27/19 06/05/19 Unknown Rx amLODIPine [Norvasc] 10 mg PO QDAY #60 tablet 05/27/19 06/05/19 Unknown Rx Active Medications: Generic Name Dose Route Start Last Admin Trade Name Freq PRN Reason Stop Dose Admin Acetaminophen 650 mg 06/08/19 14:58 Tylenol PO Q4H PRN Pain MILD(1-3)/Fever >100.5/POLANCO Albuterol 2.5 mg 06/05/19 14:00 Proventil IH Q4HRT PRN Shortness Of Breath Lipase/Protease/Amylase 1 each 06/09/19 16:01 Pancrerojelio Freed 10,500 Unit FEEDTUBE PRN PRN For Clogged Feeding Tube Aspirin 81 mg 06/12/19 10:00 Baby Aspirin PO QDAY ELIZABETH Cholestyramine Resin 4 gm 06/05/19 20:00 06/10/19 08:54 Questran PO 4 gm TID ELIZABETH Administration Dextrose 50 ml 06/05/19 14:03 06/09/19 03:09 D50w (25gm) Syringe IV 50 ml PRN PRN Administration Hypoglycemia Famotidine 20 mg 06/05/19 22:00 06/10/19 08:54 Pepcid PO 20 mg DAILY ELIZABETH Administration Ferrous Gluconate 324 mg 06/05/19 22:00 06/10/19 08:54 Fergon PO 324 mg BID ELIZABETH Administration Finasteride 5 mg 06/06/19 10:00 06/10/19 08:54 Proscar PO 5 mg DAILY [facility]IZ[facility]ETH Administration Heparin Sodium (Porcine) 5,000 unit 06/12/19 10:00 Heparin SUB-Q Q12HR [facility] Hydralazine HCl 10 mg 06/07/19 14:00 06/07/19 13:42 Apresoline IV 10 mg Q3HR PRN Administration Elevated BP Hydromorphone HCl 0.5 mg 06/08/19 14:58 Dilaudid IV Q3H PRN Pain , Severe (7-10) Sodium Bicarbonate 100 meq/ 1,100 mls @ 75 mls/hr 06/06/19 13:00 06/08/19 13:43 Dextrose IV 75 mls/hr DIRECT ELIZABETH Administration Dextrose/Sodium Chloride 1,000 mls @ 75 mls/hr 06/08/19 15:00 06/10/19 08:53 D5ns IV 75 mls/hr DIRECT ELIZABETH Administration Ertapenem 1 gm/ Sodium 50 mls @ 100 mls/hr 06/09/19 13:00 06/09/19 14:10 Chloride IV 100 mls/hr Q24H [facility]ETH Administration Potassium Chloride 10 meq in 100 mls @ 100 mls/hr 06/10/19 09:00 06/10/19 08:55 Kcl 10meq/100ml IV 06/10/19 10:59 100 mls/hr Q1H [facility]ETH Administration Insulin Human Lispro 0 unit 06/05/19 16:30 06/10/19 08:53 Humalog SUB-Q 2 unit ACHS EL[facility]ETH Administration Protocol Mirtazapine 15 mg 06/05/19 22:00 06/09/19 22:23 Remeron PO 15 mg QHS [facility]ETH Administration Ondansetron HCl 4 mg 06/08/19 14:58 Zofran IV Q8H PRN Nausea And Vomiting Oxycodone/Acetaminophen 1 tab 06/08/19 14:58 Percocet 5/325 PO Q6H PRN Pain, Moderate (4-6) Simple Syrup 15 ml 06/09/19 16:01 Simple Syrup FEEDTUBE PRN PRN Hypoglycemia Simple Syrup 30 ml 06/09/19 16:01 Simple Syrup FEEDTUBE PRN PRN Hypoglycemia Sodium Bicarbonate 325 mg 06/09/19 16:01 Sodium Bicarbonate FEEDTUBE PRN PRN For Clogged Feeding Tube Sodium Chloride 10 ml 06/05/19 22:00 06/10/19 08:55 Sodium Chloride Flush Syringe 10 Ml IV 10 ml BID ELIZABETH Administration Sodium Chloride 10 ml 06/05/19 14:00 06/06/19 17:33 Sodium Chloride Flush Syringe 10 Ml IV 10 ml PRN PRN Administration LINE FLUSH Sodium Chloride 10 ml 06/08/19 22:00 06/09/19 22:24 Sodium Chloride Flush Syringe 10 Ml IV Not Given BID [facility]ABETH Sodium Chloride 10 ml 06/08/19 14:58 Sodium Chloride Flush Syringe 10 Ml IV PRN PRN LINE FLUSH Tamsulosin HCl 0.4 mg 06/06/19 10:00 06/10/19 08:53 Flomax PO 0.4 mg QDAY [facility]ETH Administration Vitamin B Complex/Vitamin C 1 each 06/06/19 10:00 06/10/19 08:54 Allbee With C PO 1 each QDAY ELIZABETH Administration
[2019-06-10] MEDS: INVanz 1 GM in NACL 0.9% 50 ML IV SCH (13:06)
--- NOTE | 2019-06-10 17:45 | Progress Note ---
Assessment and Plan Assessment and plan: Acute metabolic encephalopathy Neurochecks Will consult neurology Obtain MRI Brain UTI due to ESBL Klebsiella pneumonia consult ID Physician PAPITO Improving Cr 2.0 Nephrology following Dementia Monitor Neurochecks Severe malnutrition BMI only 14.7 s/p PEG tube Full code status History Interval history: Altered mental status Hospitalist Physical - Physical exam Narrative exam: Gen: Not in acute distress, lying in bed, HEENT: Normocephalic, atraumatic Neck: supple, no JVD Heart: S1 and S2 reg, no murmurs, rubs or gallop Lungs: Clear to auscultation, no wheeze Abd: soft, non tender, non distended, normal BS, Ext: No edema, no clubbing, no cyanosis Neuro: lethargic, opens eyes, does not follow commands - Constitutional Vitals: Temp Pulse Resp BP Pulse Ox 97.6 F 50 L 18 112/58 100 06/10/19 07:58 06/10/19 13:25 06/10/19 13:25 06/10/19 13:25 06/10/19 13:25 General appearance: Present: no acute distress Results - Labs CBC & Chem 7: 06/10/19 05:20 06/11/19 05:15 Labs: Laboratory Last Values WBC 4.4 K/mm3 (4.5-11.0) L 06/10/19 05:20 RBC 3.47 M/mm3 (3.65-5.03) L 06/10/19 05:20 Hgb 10.0 gm/dl (11.8-15.2) L 06/10/19 05:20 Hct 29.6 % (35.5-45.6) L 06/10/19 05:20 MCV 85 fl (84-94) 06/10/19 05:20 MCH 29 pg (28-32) 06/10/19 05:20 MCHC 34 % (32-34) 06/10/19 05:20 RDW 16.9 % (13.2-15.2) H 06/10/19 05:20 Plt Count 167 K/mm3 (140-440) 06/10/19 05:20 Lymph % (Auto) 32.7 % (13.4-35.0) 06/09/19 07:39 Gilchrist % (Auto) 13.8 % (0.0-7.3) H 06/09/19 07:39 Eos % (Auto) 3.9 % (0.0-4.3) 06/09/19 07:39 Baso % (Auto) 0.9 % (0.0-1.8) 06/09/19 07:39 Lymph # 1.0 K/mm3 (1.2-5.4) L 06/09/19 07:39 Gilchrist # 0.4 K/mm3 (0.0-0.8) 06/09/19 07:39 Eos # 0.1 K/mm3 (0.0-0.4) 06/09/19 07:39 Baso # 0.0 K/mm3 (0.0-0.1) 06/09/19 07:39 Seg Neutrophils % 48.7 % (40.0-70.0) 06/09/19 07:39 Seg Neutrophils # 1.5 K/mm3 (1.8-7.7) L 06/09/19 07:39 APTT 37.7 Sec. (24.2-36.6) H 06/05/19 11:11 Sodium 145 mmol/L (137-145) 06/10/19 05:20 Potassium 3.3 mmol/L (3.6-5.0) L 06/10/19 05:20 Chloride 105.7 mmol/L (98-107) 06/10/19 05:20 Carbon Dioxide 27 mmol/L (22-30) 06/10/19 05:20 16 mmol/L 06/10/19 05:20 BUN 34 mg/dL (9-20) H 06/10/19 05:20 2.0 mg/dL (0.8-1.5) H 06/10/19 05:20 Estimated GFR 41 ml/min 06/10/19 05:20 17 % 06/10/19 05:20 Glucose 212 mg/dL (75-100) H 06/10/19 05:20 POC Glucose 279 (70-105) H 06/10/19 11:48 10.8 % (4-6) H 06/08/19 22:14 Lactic Acid 0.50 mmol/L (0.7-2.0) L 06/05/19 14:03 Calcium 8.7 mg/dL (8.4-10.2) 06/10/19 05:20 Phosphorus 3.80 mg/dL (2.5-4.5) 06/06/19 04:22 Magnesium 2.60 mg/dL (1.7-2.3) H 06/06/19 04:22 0.30 mg/dL (0.1-1.2) 06/09/19 05:02 AST 28 units/L (5-40) 06/09/19 05:02 ALT 36 units/L (7-56) 06/09/19 05:02 125 units/L (35-129) 06/09/19 05:02 0.047 ng/mL (0.00-0.029) H 06/05/19 11:11 NT-Pro-B Natriuret Pep 446.0 pg/mL (0-900) 06/05/19 11:11 5.8 g/dL (6.3-8.2) L 06/09/19 05:02 2.8 g/dL (3.9-5) L 06/09/19 05:02 0.9 % 06/09/19 05:02 Triglycerides 60 mg/dL (2-149) 06/05/19 11:11 Cholesterol 181 mg/dL (50-199) 06/05/19 11:11 68 mg/dL (50-130) 06/05/19 11:11 115 mg/dL (40-59) H 06/05/19 11:11 1.57 % 06/05/19 11:11 TSH 0.630 mlU/mL (0.270-4.200) 06/05/19 13:26 Free T4 1.04 ng/dL (0.76-1.46) 06/05/19 13:26 Yellow (Yellow) 06/05/19 13:21 Slightly-cloudy (Clear) 06/05/19 13:21 6.0 (5.0-7.0) 06/05/19 13:21 Ur Specific Simpson 1.012 (1.003-1.030) 06/05/19 13:21 30 mg/dl mg/dL (Negative) 06/05/19 13:21 Neg mg/dL (Negative) 06/05/19 13:21 Neg mg/dL (Negative) 06/05/19 13:21 Mod (Negative) 06/05/19 13:21 Neg (Negative) 06/05/19 13:21 Neg (Negative) 06/05/19 13:21 < 2.0 mg/dL (<2.0) 06/05/19 13:21 Ur Leukocyte Esterase Mod (Negative) 06/05/19 13:21 14.0 /HPF (0.0-6.0) H 06/05/19 13:21 3.0 /HPF (0.0-6.0) 06/05/19 13:21 2+ /HPF (Negative) 06/05/19 13:21 Few /HPF 06/05/19 13:21 102.7 mg/dL (0.1-20.0) H 06/06/19 17:37 47 mmol/L 06/06/19 17:37 Active Medications - Current Medications Current Medications: Generic Name Dose Route Start Last Admin Trade Name Freq PRN Reason Stop Dose Admin Acetaminophen 650 mg 06/08/19 14:58 Tylenol PO Q4H PRN Pain MILD(1-3)/Fever >100.5/POLANCO Albuterol 2.5 mg 06/05/19 14:00 Proventil IH Q4HRT PRN Shortness Of Breath Lipase/Protease/Amylase 1 each 06/09/19 16:01 Pancreaze 10,500 Unit FEEDTUBE PRN PRN For Clogged Feeding Tube Aspirin 81 mg 06/12/19 10:00 Baby Aspirin PO QDAY [facility] Cholestyramine Resin 4 gm 06/05/19 20:00 06/10/19 13:06 Questran PO 4 gm TID ELIZABETH Administration Dextrose 50 ml 06/05/19 14:03 06/09/19 03:09 D50w (25gm) Syringe IV 50 ml PRN PRN Administration Hypoglycemia Famotidine 20 mg 06/05/19 22:00 06/10/19 10:00 Pepcid PO Not Given DAILY [facility] Ferrous Gluconate 324 mg 06/05/19 22:00 06/10/19 10:00 Fergon PO Not Given BID [facility] Finasteride 5 mg 06/06/19 10:00 06/10/19 10:00 Proscar PO Not Given DAILY [facility] Heparin Sodium (Porcine) 5,000 unit 06/12/19 10:00 Heparin SUB-Q Q12HR [facility] Hydralazine HCl 10 mg 06/07/19 14:00 06/07/19 13:42 Apresoline IV 10 mg Q3HR PRN Administration Elevated BP Hydromorphone HCl 0.5 mg 06/08/19 14:58 Dilaudid IV Q3H PRN Pain , Severe (7-10) Dextrose/Sodium Chloride 1,000 mls @ 75 mls/hr 06/08/19 15:00 06/10/19 08:53 D5ns IV 75 mls/hr DIRECT ELIZABETH Administration Ertapenem 1 gm/ Sodium 50 mls @ 100 mls/hr 06/09/19 13:00 06/10/19 13:06 Chloride IV 100 mls/hr Q24H [facility]IZABETH Administration Insulin Human Lispro 0 unit 06/05/19 16:30 06/10/19 13:05 Humalog SUB-Q 3 unit ACHS ELIZABETH Administration Protocol Mirtazapine 15 mg 06/05/19 22:00 06/09/19 22:23 Remeron PO 15 mg QHS ELIZABETH Administration Ondansetron HCl 4 mg 06/08/19 14:58 Zofran IV Q8H PRN Nausea And Vomiting Oxycodone/Acetaminophen 1 tab 06/08/19 14:58 Percocet 5/325 PO Q6H PRN Pain, Moderate (4-6) Simple Syrup 15 ml 06/09/19 16:01 Simple Syrup FEEDTUBE PRN PRN Hypoglycemia Simple Syrup 30 ml 06/09/19 16:01 Simple Syrup FEEDTUBE PRN PRN Hypoglycemia Sodium Bicarbonate 325 mg 06/09/19 16:01 Sodium Bicarbonate FEEDTUBE PRN PRN For Clogged Feeding Tube Sodium Chloride 10 ml 06/05/19 22:00 06/10/19 10:00 Sodium Chloride Flush Syringe 10 Ml IV Not Given BID ELIZABETH Sodium Chloride 10 ml 06/05/19 14:00 06/06/19 17:33 Sodium Chloride Flush Syringe 10 Ml IV 10 ml PRN PRN Administration LINE FLUSH Sodium Chloride 10 ml 06/08/19 22:00 06/10/19 10:00 Sodium Chloride Flush Syringe 10 Ml IV Not Given BID ELIZABETH Sodium Chloride 10 ml 06/08/19 14:58 Sodium Chloride Flush Syringe 10 Ml IV PRN PRN LINE FLUSH Tamsulosin HCl 0.4 mg 06/06/19 10:00 06/10/19 10:00 Flomax PO Not Given QDAY [facility] Vitamin B Complex/Vitamin C 1 each 06/06/19 10:00 06/10/19 11:56 Allbee With C PO Not Given QDAY [facility] Nutrition/Malnutrition Assess - Dietary Evaluation Nutrition/Malnutrition Findings: Nutrition Notes Start: 06/06/19 08:45 Freq: Status: Active Protocol: Document 06/09/19 14:13 SERGEI (Rec: 06/09/19 14:26 SERGEI [email or web address]) Nutrition Notes Need for Assessment generated from: MD Order Initial or Follow up Brief Note Current Diet NPO Labs/Tests BUN 37 Cr 2 BG 176 A1C 10.8 Subjective/Other Information Day 5 NPO. Pt scheduled for PEG placement today, per RN report. RD consulted for TF. Nutrition Intervention Nutrition Support: Recommend Glucerna 1.2 at 65ml /hr with 100ml water flush q4h Kcal 1,872 Protein (gm) 94 Fluid (mL) 1,256 Follow-Up By: 06/11/19 Additional Comments F/U: new TF
--- NOTE | 2019-06-10 18:10 | Magnetic Resonance Report ---
MRI BRAIN WITHOUT CONTRAST INDICATION / CLINICAL INFORMATION: Altered mental status. TECHNIQUE: Multiplanar, multisequence MR images of the brain were obtained. COMPARISON: Head CT dated 06/05/2019. FINDINGS: BRAIN / INTRACRANIAL CONTENTS: No acute ischemia, acute hemorrhage, mass effect, midline shift, or hy drocephalus. Stable chronic encephalomalacia in the left frontal lobe and in the left PICA territory in the left cerebellar hemisphere. Normal ventricular and cisternal size for age. No significant albina unt aeration. CRANIOCERVICAL JUNCTION: No significant abnormality. VASCULAR FLOW-VOIDS: No significant abnormality. ORBITS: No significant abnormality of visualized orbits. SINUSES / MASTOIDS: Stable fat intensity material opacifying the lateral sinus, probable fat packing material from prior craniotomy.. Stable mild mucosal thickening in the bilateral mastoid air cells. ADDITIONAL FINDINGS: None. IMPRESSION: 1. No acute findings. 2. Stable chronic encephalomalacia in the left frontal lobe and left cerebellar hemisphere. Signer Name: Colin Camilo MD Signed: 06/10/2019 6:05 PM Workstation Name: [id number]
--- NOTE | 2019-06-10 21:41 | Consultation ---
History of Present Illness Consult date: 06/10/19 Requesting physician: EMILY BARONE Reason for Consult: altered mental status Chief complaint: altered mental status History of present illness: This 68 year old male cannot give a history and no family is present. Per chart and Dr. Barone, was noted by son on 06/05 to be not responding and fingerstick glucose was very low. Seen by teleneurologist who recommended brain MRI but note not done till yesterday. Echo from 05/19/19 admission showed cardiomyopathy and mild LAE but no bubbles given. 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 Per notes of first admission in early May, was on phenytoin 100 mg po tid but patient told staff that his physicians had taken him off all meds. PMH: Medical: DM, hypertension, dementia Surgeries: left frontal craniotomy SH: unknown FH: unknown ROS: unknown General physical exam: General appearance: very thin late 60's female with open skin abrasions, contractures of legs, sleeping. HEENT: cachectic, left frontal craniotomy changes, no bruits. Neck: supple, no bruits. Heart: no murmur or extra sounds. Extremities: no pulses palpable, no edema. Neurologic exam: Mental Status: not oriented, cannot name or count, says "ah" spontaneously and when asked to open mouth. Cranial nerves: blinks to threat X 2, no papilledema, PERRL, EOMs full to Doll's eyes, sensory intact to pinprick, no facial weakness, can't test Mathias, gags are positive, can't do shrug, won't protrude tongue. Cerebellar: spontaneously right wrist to face without tremor, can't lift as well on left but no tremor, can't do heel to adkins. Sensory: withdraws to pinprick all 4's. Motor UEs: lifts right arm to 90 degrees, lifts left arm nearly to head. Operation Agent are 4+ seemingly to command. Cortical thumb posturing X 2. Increased tone X 2. Motor LEs: lifts both legs spontaneously in withdrawal but increased tone and partial contractures at knees. Won't do pedal push or resistance testing. Reflexes: palmomental is positive bilaterally, slightly positive snout, neg jaw jerk. Triceps, biceps and brachioradialis are 0. Beckie's is neg X 2. Knee jerks and ankle jerks are 0. Toes are downgoing right and mute left. Past History Past Medical History: GERD, hypertension, hyperlipidemia, other (Demenita, Malnutrition) Past Surgical History: No surgical history Social history: Family history: no significant family history (reviewed) Medications and Allergies Allergies Allergy/AdvReac Type Severity Reaction Status Date / Time No Known Allergies Allergy Verified 05/19/19 22:08 Home Medications Medication Instructions Recorded Confirmed Last Taken Type Cholestyramine/Aspartame 239.4 mg PO TID 05/20/19 06/05/19 Unknown History [Cholestyramine Light Powder] Famotidine [Pepcid] 20 mg PO BID 05/20/19 06/05/19 Unknown History Ferrous Gluconate [Fergon 240 MG 240 mg PO BID 05/20/19 06/05/19 Unknown History tab] Finasteride [Proscar] 5 mg PO DAILY 05/20/19 06/05/19 Unknown History Mirtazapine [Remeron 15mg TAB] 15 mg PO QHS 05/20/19 06/05/19 Unknown History Tamsulosin [Flomax] 0.4 mg PO QDAY 05/20/19 06/05/19 Unknown History Vitamin B Complex [B Complex] 1 each PO DAILY 05/20/19 06/05/19 Unknown History Aspirin EC 81 mg PO QDAY tablet 05/22/19 06/05/19 Unknown Rx Insulin Regular, Human [HumuLIN R] 0 units SUB-Q ACHS units 05/22/19 06/05/19 Unknown Rx Megestrol [Megace] 400 mg PO QDAY oral.liqd 05/22/19 06/05/19 Unknown Rx Insulin NPH/Regular [NovoLIN 70/30] 10 unit SQ BIDDIAB #1 vial 05/27/19 06/05/19 Unknown Rx Metoprolol [Lopressor TAB] 12.5 mg PO BID #60 tablet 05/27/19 06/05/19 Unknown Rx amLODIPine [Norvasc] 10 mg PO QDAY #60 tablet 05/27/19 06/05/19 Unknown Rx Active Meds: Active Medications Acetaminophen (Tylenol) 650 mg PO Q4H PRN PRN Reason: Pain MILD(1-3)/Fever >100.5/POLANCO Albuterol (Proventil) 2.5 mg IH Q4HRT PRN PRN Reason: Shortness Of Breath Lipase/Protease/Amylase (Marcia Freed 10,500 Unit) 1 each FEEDTUBE PRN PRN PRN Reason: For Clogged Feeding Tube Aspirin (Baby Aspirin) 81 mg PO QDAY [facility] Cholestyramine Resin (Questran) 4 gm PO TID [facility] Last Admin: 06/10/19 13:06 Dose: 4 gm Documented by: Dextrose (D50w (25gm) Syringe) 50 ml IV PRN PRN PRN Reason: Hypoglycemia Last Admin: 06/09/19 03:09 Dose: 50 ml Documented by: Famotidine (Pepcid) 20 mg PO DAILY [facility] Last Admin: 06/10/19 10:00 Dose: Not Given Documented by: Ferrous Gluconate (Fergon) 324 mg PO BID [facility] Last Admin: 06/10/19 10:00 Dose: Not Given Documented by: Finasteride (Proscar) 5 mg PO DAILY [facility] Last Admin: 06/10/19 10:00 Dose: Not Given Documented by: Heparin Sodium (Porcine) (Heparin) 5,000 unit SUB-Q Q12HR [facility] Hydralazine HCl (Apresoline) 10 mg IV Q3HR PRN PRN Reason: Elevated BP Last Admin: 06/07/19 13:42 Dose: 10 mg Documented by: Hydromorphone HCl (Dilaudid) 0.5 mg IV Q3H PRN PRN Reason: Pain , Severe (7-10) Dextrose/Sodium Chloride (D5ns) 1,000 mls @ 75 mls/hr IV DIRECT [facility] Last Admin: 06/10/19 08:53 Dose: 75 mls/hr Documented by: Ertapenem 1 gm/ Sodium (Chloride) 50 mls @ 100 mls/hr IV Q24H [facility] Last Admin: 06/10/19 13:06 Dose: 100 mls/hr Documented by: Insulin Human Lispro (Humalog) 0 unit SUB-Q ACHS [facility]; Protocol Last Admin: 06/10/19 19:29 Dose: 1 unit Documented by: Mirtazapine (Remeron) 15 mg PO QHS [facility] Last Admin: 06/09/19 22:23 Dose: 15 mg Documented by: Ondansetron HCl (Zofran) 4 mg IV Q8H PRN PRN Reason: Nausea And Vomiting Oxycodone/Acetaminophen (Percocet 5/325) 1 tab PO Q6H PRN PRN Reason: Pain, Moderate (4-6) Simple Syrup (Simple Syrup) 15 ml FEEDTUBE PRN PRN PRN Reason: Hypoglycemia Simple Syrup (Simple Syrup) 30 ml FEEDTUBE PRN PRN PRN Reason: Hypoglycemia Sodium Bicarbonate (Sodium Bicarbonate) 325 mg FEEDTUBE PRN PRN PRN Reason: For Clogged Feeding Tube Sodium Chloride (Sodium Chloride Flush Syringe 10 Ml) 10 ml IV BID [facility] Last Admin: 06/10/19 10:00 Dose: Not Given Documented by: Sodium Chloride (Sodium Chloride Flush Syringe 10 Ml) 10 ml IV PRN PRN PRN Reason: LINE FLUSH Last Admin: 06/06/19 17:33 Dose: 10 ml Documented by: Sodium Chloride (Sodium Chloride Flush Syringe 10 Ml) 10 ml IV BID [facility] Last Admin: 06/10/19 10:00 Dose: Not Given Documented by: Sodium Chloride (Sodium Chloride Flush Syringe 10 Ml) 10 ml IV PRN PRN PRN Reason: LINE FLUSH Tamsulosin HCl (Flomax) 0.4 mg PO QDAY [facility] Last Admin: 06/10/19 10:00 Dose: Not Given Documented by: Vitamin B Complex/Vitamin C (Allbee With C) 1 each PO QDAY [facility] Last Admin: 06/10/19 11:56 Dose: Not Given Documented by: Physical Examination - Vital Signs Vital Signs: Vital Signs Temp Pulse Resp BP Pulse Ox 89.0 F L 84 22 141/77 95 06/05/19 10:39 06/05/19 10:39 06/05/19 10:39 06/05/19 10:39 06/05/19 10:39 Results - Laboratory Findings CBC and BMP: 06/10/19 05:20 06/10/19 05:20 Abnormal Lab Findings: Abnormal Labs 06/05/19 06/05/19 06/05/19 10:24 11:11 11:11 WBC RBC Hgb 11.2 L Hct 33.2 L RDW 17.3 H [place] % (Auto) Lymph # 0.9 L Seg Neutrophils % 76.0 H Seg Neutrophils # APTT 37.7 H Sodium Potassium Chloride Carbon Dioxide BUN Creatinine Glucose POC Glucose 125 H Hemoglobin A1c Lactic Acid Magnesium AST Alkaline Phosphatase Troponin T Total Protein Albumin HDL Cholesterol Urine WBC (Auto) Urine Creatinine 06/05/19 06/05/19 06/05/19 11:11 11:11 11:36 WBC RBC Hgb Hct RDW [place] % (Auto) Lymph # Seg Neutrophils % Seg Neutrophils # APTT Sodium 147 H Potassium Chloride 115.9 H Carbon Dioxide 18 L BUN 45 H Creatinine 2.4 H Glucose 118 H POC Glucose 109 H Hemoglobin A1c Lactic Acid 0.50 L Magnesium AST Alkaline Phosphatase 147 H Troponin T 0.047 H Total Protein Albumin 3.5 L HDL Cholesterol 115 H Urine WBC (Auto) Urine Creatinine 06/05/19 06/05/19 06/05/19 13:21 14:03 16:16 WBC RBC Hgb Hct RDW [place] % (Auto) Lymph # Seg Neutrophils % Seg Neutrophils # APTT Sodium Potassium Chloride Carbon Dioxide BUN Creatinine Glucose POC Glucose 56 L Hemoglobin A1c Lactic Acid 0.50 L Magnesium AST Alkaline Phosphatase Troponin T Total Protein Albumin HDL Cholesterol Urine WBC (Auto) 14.0 H Urine Creatinine 06/05/19 06/05/19 06/05/19 18:52 19:38 20:07 WBC RBC Hgb Hct RDW [place] % (Auto) Lymph # Seg Neutrophils % Seg Neutrophils # APTT Sodium Potassium Chloride Carbon Dioxide BUN Creatinine Glucose 128 H POC Glucose < 40 L 140 H Hemoglobin A1c Lactic Acid Magnesium AST Alkaline Phosphatase Troponin T Total Protein Albumin HDL Cholesterol Urine WBC (Auto) Urine Creatinine 06/05/19 06/06/19 06/06/19 21:46 02:06 04:22 WBC RBC Hgb Hct RDW 18.1 H [place] % (Auto) Lymph # Seg Neutrophils % 71.8 H Seg Neutrophils # APTT Sodium Potassium Chloride Carbon Dioxide BUN Creatinine Glucose POC Glucose 141 H 213 H Hemoglobin A1c Lactic Acid Magnesium AST Alkaline Phosphatase Troponin T Total Protein Albumin HDL Cholesterol Urine WBC (Auto) Urine Creatinine 06/06/19 06/06/19 06/06/19 04:22 05:20 07:42 WBC RBC Hgb Hct RDW [place] % (Auto) Lymph # Seg Neutrophils % Seg Neutrophils # APTT Sodium Potassium 5.1 H Chloride 112.2 H Carbon Dioxide 13 L BUN 44 H Creatinine 2.3 H Glucose 182 H POC Glucose 237 H 247 H Hemoglobin A1c Lactic Acid Magnesium 2.60 H AST 45 H Alkaline Phosphatase 164 H Troponin T Total Protein Albumin 3.5 L HDL Cholesterol Urine WBC (Auto) Urine Creatinine 06/06/19 06/06/19 06/06/19 10:48 13:19 17:34 WBC RBC Hgb Hct RDW [place] % (Auto) Lymph # Seg Neutrophils % Seg Neutrophils # APTT Sodium Potassium Chloride Carbon Dioxide BUN Creatinine Glucose POC Glucose 167 H 108 H < 40 L Hemoglobin A1c Lactic Acid Magnesium AST Alkaline Phosphatase Troponin T Total Protein Albumin HDL Cholesterol Urine WBC (Auto) Urine Creatinine 06/06/19 06/06/19 06/06/19 17:37 18:10 20:50 WBC RBC Hgb Hct RDW [place] % (Auto) Lymph # Seg Neutrophils % Seg Neutrophils # APTT Sodium Potassium Chloride Carbon Dioxide BUN Creatinine Glucose 71 L POC Glucose 227 H Hemoglobin A1c Lactic Acid Magnesium AST Alkaline Phosphatase Troponin T Total Protein Albumin HDL Cholesterol Urine WBC (Auto) Urine Creatinine 102.7 H 06/07/19 06/07/19 06/07/19 02:36 05:40 07:59 WBC RBC Hgb Hct RDW [place] % (Auto) Lymph # Seg Neutrophils % Seg Neutrophils # APTT Sodium Potassium Chloride Carbon Dioxide BUN Creatinine Glucose POC Glucose 144 H 183 H 207 H Hemoglobin A1c Lactic Acid Magnesium AST Alkaline Phosphatase Troponin T Total Protein Albumin HDL Cholesterol Urine WBC (Auto) Urine Creatinine 06/07/19 06/07/19 06/07/19 11:40 14:35 15:12 WBC RBC Hgb Hct RDW [place] % (Auto) Lymph # Seg Neutrophils % Seg Neutrophils # APTT Sodium Potassium Chloride Carbon Dioxide BUN 40 H Creatinine 2.2 H Glucose 154 H POC Glucose 160 H 164 H Hemoglobin A1c Lactic Acid Magnesium AST Alkaline Phosphatase Troponin T Total Protein Albumin HDL Cholesterol Urine WBC (Auto) Urine Creatinine 06/07/19 06/07/19 06/08/19 16:35 21:43 02:00 WBC RBC Hgb Hct RDW [place] % (Auto) Lymph # Seg Neutrophils % Seg Neutrophils # APTT Sodium Potassium Chloride Carbon Dioxide BUN Creatinine Glucose POC Glucose 181 H 62 L 126 H Hemoglobin A1c Lactic Acid Magnesium AST Alkaline Phosphatase Troponin T Total Protein Albumin HDL Cholesterol Urine WBC (Auto) Urine Creatinine 06/08/19 06/08/19 06/08/19 05:46 05:55 05:55 WBC 3.1 L RBC Hgb 10.8 L Hct 31.6 L D RDW 16.8 H [place] % (Auto) 14.3 H Lymph # 0.9 L Seg Neutrophils % Seg Neutrophils # 1.6 L APTT Sodium Potassium Chloride Carbon Dioxide 21 L BUN 38 H Creatinine 2.2 H Glucose 167 H POC Glucose 147 H Hemoglobin A1c Lactic Acid Magnesium AST Alkaline Phosphatase 130 H Troponin T Total Protein 6.2 L Albumin 3.0 L HDL Cholesterol Urine WBC (Auto) Urine Creatinine 06/08/19 06/08/19 06/08/19 07:48 17:49 21:47 WBC RBC Hgb Hct RDW [place] % (Auto) Lymph # Seg Neutrophils % Seg Neutrophils # APTT Sodium Potassium Chloride Carbon Dioxide BUN Creatinine Glucose POC Glucose 179 H 127 H 161 H Hemoglobin A1c Lactic Acid Magnesium AST Alkaline Phosphatase Troponin T Total Protein Albumin HDL Cholesterol Urine WBC (Auto) Urine Creatinine 06/08/19 06/09/19 06/09/19 22:14 03:12 04:34 WBC RBC Hgb Hct RDW [place] % (Auto) Lymph # Seg Neutrophils % Seg Neutrophils # APTT Sodium Potassium Chloride Carbon Dioxide BUN Creatinine Glucose POC Glucose 59 L 163 H Hemoglobin A1c 10.8 H Lactic Acid Magnesium AST Alkaline Phosphatase Troponin T Total Protein Albumin HDL Cholesterol Urine WBC (Auto) Urine Creatinine 06/09/19 06/09/19 06/09/19 05:02 07:39 08:34 WBC 3.1 L RBC Hgb 10.6 L Hct 31.7 L RDW 17.0 H [place] % (Auto) 13.8 H Lymph # 1.0 L Seg Neutrophils % Seg Neutrophils # 1.5 L APTT Sodium Potassium Chloride Carbon Dioxide BUN 37 H Creatinine 2.0 H Glucose 176 H POC Glucose 206 H Hemoglobin A1c Lactic Acid Magnesium AST Alkaline Phosphatase Troponin T Total Protein 5.8 L Albumin 2.8 L HDL Cholesterol Urine WBC (Auto) Urine Creatinine 06/09/19 06/09/19 06/10/19 17:55 21:36 05:20 WBC RBC Hgb Hct RDW [place] % (Auto) Lymph # Seg Neutrophils % Seg Neutrophils # APTT Sodium Potassium 3.3 L Chloride Carbon Dioxide BUN 34 H Creatinine 2.0 H Glucose 212 H POC Glucose 265 H 132 H Hemoglobin A1c Lactic Acid Magnesium AST Alkaline Phosphatase Troponin T Total Protein Albumin HDL Cholesterol Urine WBC (Auto) Urine Creatinine 06/10/19 06/10/19 06/10/19 05:20 07:00 11:48 WBC 4.4 L RBC 3.47 L Hgb 10.0 L Hct 29.6 L RDW 16.9 H [place] % (Auto) Lymph # Seg Neutrophils % Seg Neutrophils # APTT Sodium Potassium Chloride Carbon Dioxide BUN Creatinine Glucose POC Glucose 249 H 279 H Hemoglobin A1c Lactic Acid Magnesium AST Alkaline Phosphatase Troponin T Total Protein Albumin HDL Cholesterol Urine WBC (Auto) Urine Creatinine 06/10/19 18:25 WBC RBC Hgb Hct RDW [place] % (Auto) Lymph # Seg Neutrophils % Seg Neutrophils # APTT Sodium Potassium Chloride Carbon Dioxide BUN Creatinine Glucose POC Glucose 157 H Hemoglobin A1c Lactic Acid Magnesium AST Alkaline Phosphatase Troponin T Total Protein Albumin HDL Cholesterol Urine WBC (Auto) Urine Creatinine Assessment and Plan Impression: 1. Metabolic encephalopathy 2. Hypoglycemia 3. Hypothermia Plan: 1. May have hypoglycemia and hypothermia due to infection per Dr. Barone. 2. EEG (showed mild slowing but no epileptiform activity). 3. Not clear that he needs an antiepileptic drug since no irritability on EEG. 4. Expect verbal deficits from his left temporal and frontal damage on MRI. 5. Need outside records to know what his left frontal craniotomy was for. A note says aneurysm but no clip on scans. 55 min spent including review of hundreds of MRI images. Thanks for an interesting consultation on this unfortunate late 60's male.
--- NOTE | 2019-06-10 21:50 | Electroencephalogram Report ---
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 No clear alpha activity is seen. There is 5-6 Hz background with noise from motion. No epileptiform activity is seen. Interpretation: Moderately abnormal EEG due to slowing diffusely, due a diffuse process including metabolic encephalopathy. This EEG does not exclude epilepsy of partial onset. Up to 4 EEGs over several months may be needed to capture interictal epileptiform activity.
[2019-06-10] MEDS: REMERON PO SCH (22:09)
[2019-06-10] MEDS: D50W (25GM) Syringe IV PRN (22:14)
[2019-06-11] MEDS: D5NS 1,000 ML IV SCH (05:13)
[2019-06-11 05:57] LABS: Calcium 9.1 mg/dL (8.4-10.2)
[2019-06-11] MEDS: HumaLOG SUB-Q SCH ×3 (07:11→17:53)
--- NOTE | 2019-06-11 08:56 | Progress Note ---
Assessment and Plan Previous Cultures: 05/19/2019 Blood: no growth 05/19/2019 Urine: ESBL Klebsiella Cultures: 06/08/2019 Urine: ESBL Klebsiella 06/08/2019 Blood: NGTD A/P: 68 yo M PMHx dementia, malnutrition, GERD, HTN admitted with AMS, ESBL UTI. 1) Severe sepsis secondary to ESBL UTI - Improved. ESBL Kelbsiella, sensitive to carbapenems and fluorquinolones. Will start ertapenem for now and stop ceftriaxone. If he responds well can consider discharge on levofloxacin. Renal U S - no acute infective processes or stone. L renal cysts 2) Metabolic encephalopathy - remains altered, hopefully will improve with effective antibiotics now that we know the causative organism. CT head normal. Brain MRI shows stable chronic encephalomalacia in the left frontal lobe and left cerebellar hemisphere. Verbal defects expected. Neurology following. 3) Dementia 4) GERD 5) Malnutrition - s/p EGD and Peg placement 06/09/19 6) HTN Recs: -Continue ertapenem 1gm IV every 24, D2 -When clinically improved, anticipate discharge on levofloxacin total 14 days [facility] M: [id number] O:[phone] Subjective Date of service: 06/11/19 Principal diagnosis: Severe malnutrition Interval history: Patient seen and examined. Awake, more alert today. Following simple commands. Non-verbal. No fevers. Objective - Exam Narrative Exam: Constitutional: More awake. Following simple commands. No acute distress Head, Ears, Nose: Normocephalic, atraumatic. External ears, nose normal Eyes: Conjunctivae/corneas clear. No icterus. No ptosis. Neck: Supple, no meningeal signs Oral: poor dentition, moist mucous membranes Cardiovascular: S1, S2 normal. Normal rhythm Respiratory: Good air entry, clear to auscultation bilaterally GI: Soft, non-tender. +peg tube, abdominal band Musculoskeletal: No pedal edema Skin: Numerous abrasion and excoriations on all extremities. R thigh bandaged. Hem/Lymphatic: No palpable cervical or supraclavicular nodes. No lymphangitis Psych: more awake. Neurological: following simple commands. non-verbal - Constitutional Vitals: Vital Signs Temp Pulse Resp BP Pulse Ox 98.1 F 50 L 20 110/62 100 06/11/19 07:45 06/11/19 07:45 06/11/19 07:45 06/11/19 07:45 06/11/19 07:45 Temperature -Last 24 Hours Temperature 98.1 F Temperature 98.5 F Temperature 98.6 F - Labs CBC & Chem 7: 06/10/19 05:20 06/11/19 05:15 Labs: Abnormal lab results 06/10/19 06/10/19 06/10/19 Range/Units 11:48 18:25 21:50 Potassium (3.6-5.0) mmol/L Chloride (98-107) mmol/L BUN (9-20) mg/dL Creatinine (0.8-1.5) mg/dL Glucose (75-100) mg/dL POC Glucose 279 H 157 H 58 L (70-105) 06/10/19 06/11/19 06/11/19 Range/Units 23:22 05:15 06:48 Potassium 3.4 L (3.6-5.0) mmol/L Chloride 108.1 H (98-107) mmol/L BUN 30 H (9-20) mg/dL Creatinine 2.0 H (0.8-1.5) mg/dL Glucose 358 H (75-100) mg/dL POC Glucose 124 H 441 H (70-105)
--- NOTE | 2019-06-11 09:23 | Progress Note ---
Assessment and Plan 1. Acute kidney injury: Vasomotor PAPITO superimposed on CKD stage 3 in the setting of volume depletion. Renal US was negative for hydro. Renal function is improving. Monitor renal function. Avoid nephrotoxic agents. Meds dosage based on GFR. 2. FEN: Hypokalemia, replete K. Hypernatremia, improved. Metabolic acidosis, improved. Monitor lytes. 3. UTI: On Ertapenem. 4. Metabolic Encephalopathy. 5. Anemia: POA. 6. Dysphagia: S/p PEG tube. 7. Adult failure to thrive. Subjective Date of service: 06/11/19 Principal diagnosis: Severe malnutrition Interval history: Patient was seen and examined at the bedside. Objective - Vital Signs Vital signs: Vital Signs - 12hr 06/10/19 06/11/19 06/11/19 22:00 02:50 07:45 Temperature 98.5 F 98.1 F Pulse Rate 51 L 55 L 50 L Respiratory 18 20 Rate Blood Pressure 120/56 110/62 O2 Sat by Pulse 97 100 Oximetry - General Appearance General appearance: well-developed, appears stated age, other (no distress) EENT: ATNC, PERRL Neck: other (Trachea midline) Respiratory: Present: Clear to Ascultation Cardiology: regular, S1S2, no murmurs Gastrointestinal: normoactive bowel sounds, no tenderness, no distended, other (PEG tube noted) Integumentary: warm and dry Neurologic: other (opens eyes, not following any command) Musculoskeletal: other (no edema) - Lab 06/10/19 05:20 06/11/19 05:15 Most recent lab results Calcium 9.1 mg/dL (8.4-10.2) 06/11/19 05:15 Phosphorus 3.80 mg/dL (2.5-4.5) 06/06/19 04:22 Magnesium 2.60 mg/dL (1.7-2.3) H 06/06/19 04:22 102.7 mg/dL (0.1-20.0) H 06/06/19 17:37 47 mmol/L 06/06/19 17:37 Medications & Allergies - Medications Allergies/Adverse Reactions: Allergies No Known Allergies Allergy (Verified 05/19/19 22:08) Home Medications: Home Medications Medication Instructions Recorded Confirmed Last Taken Type Cholestyramine/Aspartame 239.4 mg PO TID 05/20/19 06/05/19 Unknown History [Cholestyramine Light Powder] Famotidine [Pepcid] 20 mg PO BID 05/20/19 06/05/19 Unknown History Ferrous Gluconate [Fergon 240 MG 240 mg PO BID 05/20/19 06/05/19 Unknown History tab] Finasteride [Proscar] 5 mg PO DAILY 05/20/19 06/05/19 Unknown History Mirtazapine [Remeron 15mg TAB] 15 mg PO QHS 05/20/19 06/05/19 Unknown History Tamsulosin [Flomax] 0.4 mg PO QDAY 05/20/19 06/05/19 Unknown History Vitamin B Complex [B Complex] 1 each PO DAILY 05/20/19 06/05/19 Unknown History Aspirin EC 81 mg PO QDAY tablet 05/22/19 06/05/19 Unknown Rx Insulin Regular, Human [HumuLIN R] 0 units SUB-Q ACHS units 05/22/19 06/05/19 Unknown Rx Megestrol [Megace] 400 mg PO QDAY oral.liqd 05/22/19 06/05/19 Unknown Rx Insulin NPH/Regular [NovoLIN 70/30] 10 unit SQ BIDDIAB #1 vial 05/27/19 06/05/19 Unknown Rx Metoprolol [Lopressor TAB] 12.5 mg PO BID #60 tablet 05/27/19 06/05/19 Unknown Rx amLODIPine [Norvasc] 10 mg PO QDAY #60 tablet 05/27/19 06/05/19 Unknown Rx Active Medications: Generic Name Dose Route Start Last Admin Trade Name [place] PRN Reason Stop Dose Admin Acetaminophen 650 mg 06/08/19 14:58 Tylenol PO Q4H PRN Pain MILD(1-3)/Fever >100.5/POLANCO Albuterol 2.5 mg 06/05/19 14:00 Proventil IH Q4HRT PRN Shortness Of Breath Lipase/Protease/Amylase 1 each 06/09/19 16:[address] 10,500 Unit FEEDTUBE PRN PRN For Clogged Feeding Tube Aspirin 81 mg 06/12/19 10:00 Baby Aspirin PO QDAY ELIZABETH Cholestyramine Resin 4 gm 06/05/19 20:00 06/10/19 20:10 Questran PO 4 gm TID ELIZABETH Administration Dextrose 50 ml 06/05/19 14:03 06/10/19 22:14 D50w (25gm) Syringe IV 50 ml PRN PRN Administration Hypoglycemia Famotidine 20 mg 06/05/19 22:00 06/10/19 10:00 Pepcid PO Not Given DAILY [facility] Ferrous Gluconate 324 mg 06/05/19 22:00 06/10/19 22:09 Fergon PO 324 mg BID ELIZABETH Administration Finasteride 5 mg 06/06/19 10:00 06/10/19 10:00 Proscar PO Not Given DAILY [facility] Heparin Sodium (Porcine) 5,000 unit 06/12/19 10:00 Heparin SUB-Q Q12HR [facility] Hydralazine HCl 10 mg 06/07/19 14:00 06/07/19 13:42 Apresoline IV 10 mg Q3HR PRN Administration Elevated BP Hydromorphone HCl 0.5 mg 06/08/19 14:58 Dilaudid IV Q3H PRN Pain , Severe (7-10) Dextrose/Sodium Chloride 1,000 mls @ 75 mls/hr 06/08/19 15:00 06/11/19 05:13 D5ns IV 75 mls/hr DIRECT ELIZABETH Administration Ertapenem 1 gm/ Sodium 50 mls @ 100 mls/hr 06/09/19 13:00 06/10/19 13:06 Chloride IV 100 mls/hr Q24H ELIZABETH Administration Potassium Chloride 10 meq in 100 mls @ 100 mls/hr 06/11/19 10:00 Kcl 10meq/100ml IV 06/11/19 11:59 Q1H [facility] Insulin Human Lispro 0 unit 06/05/19 16:30 06/11/19 07:11 Humalog SUB-Q 5 unit ACHS ELIZABETH Administration Protocol Mirtazapine 15 mg 06/05/19 22:00 06/10/19 22:09 Remeron PO 15 mg QHS ELIZABETH Administration Ondansetron HCl 4 mg 06/08/19 14:58 Zofran IV Q8H PRN Nausea And Vomiting Oxycodone/Acetaminophen 1 tab 06/08/19 14:58 Percocet 5/325 PO Q6H PRN Pain, Moderate (4-6) Simple Syrup 15 ml 06/09/19 16:01 Simple Syrup FEEDTUBE PRN PRN Hypoglycemia Simple Syrup 30 ml 06/09/19 16:01 Simple Syrup FEEDTUBE PRN PRN Hypoglycemia Sodium Bicarbonate 325 mg 06/09/19 16:01 Sodium Bicarbonate FEEDTUBE PRN PRN For Clogged Feeding Tube Sodium Chloride 10 ml 06/05/19 22:00 06/10/19 22:11 Sodium Chloride Flush Syringe 10 Ml IV 10 ml BID ELIZABETH Administration Sodium Chloride 10 ml 06/05/19 14:00 06/06/19 17:33 Sodium Chloride Flush Syringe 10 Ml IV 10 ml PRN PRN Administration LINE FLUSH Sodium Chloride 10 ml 06/08/19 22:00 06/10/19 22:23 Sodium Chloride Flush Syringe 10 Ml IV Not Given BID ELIZABETH Sodium Chloride 10 ml 06/08/19 14:58 Sodium Chloride Flush Syringe 10 Ml IV PRN PRN LINE FLUSH Tamsulosin HCl 0.4 mg 06/06/19 10:00 06/10/19 10:00 Flomax PO Not Given QDAY [facility] Vitamin B Complex/Vitamin C 1 each 06/06/19 10:00 06/10/19 11:56 Allbee With C PO Not Given QDAY ELIZABETH
[2019-06-11] MEDS: KCL 10MEQ/100ML 10 MEQ/100 ML BAG IV SCH ×2 (10:17→12:06)
[2019-06-11] MEDS: FLOMAX PO SCH (10:21)
[2019-06-11] MEDS: PROSCAR PO SCH (10:21)
[2019-06-11] MEDS: FERGON PO SCH ×2 (10:21→23:05)
[2019-06-11] MEDS: PEPCID PO SCH (10:21)
[2019-06-11] MEDS: ALLBEE WITH C PO SCH (10:21)
[2019-06-11] MEDS: QUESTRAN PO SCH ×3 (12:06→23:05)
[2019-06-11] MEDS: SODIUM CHLORIDE FLUSH SYRINGE 10 ML IV SCH ×4 (12:07→23:06)
[2019-06-11] MEDS: INVanz 1 GM in NACL 0.9% 50 ML IV SCH (12:44)
--- NOTE | 2019-06-11 17:06 | Progress Note ---
Assessment and Plan Assessment and plan: Acute metabolic encephalopathy Neurochecks Consulted neurology MRI Brain neg for stroke UTI due to ESBL Klebsiella pneumonia ID Physician following Started on Ertapenem Acute on CKD Improving Cr 2.0 Nephrology following Dementia Monitor Neurochecks Severe malnutrition BMI only 14.7 s/p PEG tube placed Sinus Bradycardia EKG sinus clarissa at 47 may consult Cardiology Full code status History Interval history: Altered mental status Hospitalist Physical - Physical exam Narrative exam: Gen: Not in acute distress, lying in bed, HEENT: Normocephalic, atraumatic Neck: supple, no JVD Heart: S1 and S2 reg, no murmurs, rubs or gallop Lungs: Clear to auscultation, no wheeze Abd: soft, non tender, non distended, normal BS, Ext: No edema, no clubbing, no cyanosis Neuro: lethargic, opens eyes, does not follow commands, moves all ext - Constitutional Vitals: Temp Pulse Resp BP Pulse Ox 97.9 F 46 L 20 125/65 85 06/11/19 13:06 06/11/19 13:06 06/11/19 13:06 06/11/19 13:06 06/11/19 13:06 General appearance: Present: no acute distress Results - Labs CBC & Chem 7: 06/10/19 05:20 06/12/19 05:38 Labs: Laboratory Last Values WBC 4.4 K/mm3 (4.5-11.0) L 06/10/19 05:20 RBC 3.47 M/mm3 (3.65-5.03) L 06/10/19 05:20 Hgb 10.0 gm/dl (11.8-15.2) L 06/10/19 05:20 Hct 29.6 % (35.5-45.6) L 06/10/19 05:20 MCV 85 fl (84-94) 06/10/19 05:20 MCH 29 pg (28-32) 06/10/19 05:20 MCHC 34 % (32-34) 06/10/19 05:20 RDW 16.9 % (13.2-15.2) H 06/10/19 05:20 Plt Count 167 K/mm3 (140-440) 06/10/19 05:20 Lymph % (Auto) 32.7 % (13.4-35.0) 06/09/19 07:39 [place] % (Auto) 13.8 % (0.0-7.3) H 06/09/19 07:39 Eos % (Auto) 3.9 % (0.0-4.3) 06/09/19 07:39 Baso % (Auto) 0.9 % (0.0-1.8) 06/09/19 07:39 Lymph # 1.0 K/mm3 (1.2-5.4) L 06/09/19 07:39 [place] # 0.4 K/mm3 (0.0-0.8) 06/09/19 07:39 Eos # 0.1 K/mm3 (0.0-0.4) 06/09/19 07:39 Baso # 0.0 K/mm3 (0.0-0.1) 06/09/19 07:39 Seg Neutrophils % 48.7 % (40.0-70.0) 06/09/19 07:39 Seg Neutrophils # 1.5 K/mm3 (1.8-7.7) L 06/09/19 07:39 APTT 37.7 Sec. (24.2-36.6) H 06/05/19 11:11 Sodium 139 mmol/L (137-145) 06/11/19 05:15 Potassium 3.4 mmol/L (3.6-5.0) L 06/11/19 05:15 Chloride 108.1 mmol/L (98-107) H 06/11/19 05:15 Carbon Dioxide 22 mmol/L (22-30) 06/11/19 05:15 12 mmol/L 06/11/19 05:15 BUN 30 mg/dL (9-20) H 06/11/19 05:15 2.0 mg/dL (0.8-1.5) H 06/11/19 05:15 Estimated GFR 41 ml/min 06/11/19 05:15 15 % 06/11/19 05:15 Glucose 358 mg/dL (75-100) H 06/11/19 05:15 POC Glucose 339 (70-105) H 06/11/19 11:52 10.8 % (4-6) H 06/08/19 22:14 Lactic Acid 0.50 mmol/L (0.7-2.0) L 06/05/19 14:03 Calcium 9.1 mg/dL (8.4-10.2) 06/11/19 05:15 Phosphorus 3.80 mg/dL (2.5-4.5) 06/06/19 04:22 Magnesium 2.10 mg/dL (1.7-2.3) 06/11/19 08:56 0.30 mg/dL (0.1-1.2) 06/09/19 05:02 AST 28 units/L (5-40) 06/09/19 05:02 ALT 36 units/L (7-56) 06/09/19 05:02 125 units/L (35-129) 06/09/19 05:02 0.047 ng/mL (0.00-0.029) H 06/05/19 11:11 NT-Pro-B Natriuret Pep 446.0 pg/mL (0-900) 06/05/19 11:11 5.8 g/dL (6.3-8.2) L 06/09/19 05:02 2.8 g/dL (3.9-5) L 06/09/19 05:02 0.9 % 06/09/19 05:02 Triglycerides 60 mg/dL (2-149) 06/05/19 11:11 Cholesterol 181 mg/dL (50-199) 06/05/19 11:11 68 mg/dL (50-130) 06/05/19 11:11 115 mg/dL (40-59) H 06/05/19 11:11 1.57 % 06/05/19 11:11 TSH 0.630 mlU/mL (0.270-4.200) 06/05/19 13:26 Free T4 1.04 ng/dL (0.76-1.46) 06/05/19 13:26 Yellow (Yellow) 06/05/19 13:21 Slightly-cloudy (Clear) 06/05/19 13:21 6.0 (5.0-7.0) 06/05/19 13:21 Ur Specific [place] 1.012 (1.003-1.030) 06/05/19 13:21 30 mg/dl mg/dL (Negative) 06/05/19 13:21 Neg mg/dL (Negative) 06/05/19 13:21 Neg mg/dL (Negative) 06/05/19 13:21 Mod (Negative) 06/05/19 13:21 Neg (Negative) 06/05/19 13:21 Neg (Negative) 06/05/19 13:21 < 2.0 mg/dL (<2.0) 06/05/19 13:21 Ur Leukocyte Esterase Mod (Negative) 06/05/19 13:21 14.0 /HPF (0.0-6.0) H 06/05/19 13:21 3.0 /HPF (0.0-6.0) 06/05/19 13:21 2+ /HPF (Negative) 06/05/19 13:21 Few /HPF 06/05/19 13:21 102.7 mg/dL (0.1-20.0) H 06/06/19 17:37 47 mmol/L 06/06/19 17:37 Active Medications - Current Medications Current Medications: Generic Name Dose Route Start Last Admin Trade Name Freq PRN Reason Stop Dose Admin Acetaminophen 650 mg 06/08/19 14:58 Tylenol PO Q4H PRN Pain MILD(1-3)/Fever >100.5/POLANCO Albuterol 2.5 mg 06/05/19 14:00 Proventil IH Q4HRT PRN Shortness Of Breath Lipase/Protease/Amylase 1 each 06/09/19 16:01 Pancreaze 10,500 Unit FEEDTUBE PRN PRN For Clogged Feeding Tube Aspirin 81 mg 06/12/19 10:00 Baby Aspirin PO QDAY ELIZABETH Cholestyramine Resin 4 gm 06/05/19 20:00 06/11/19 12:06 Questran PO 4 gm TID ELIZABETH Administration Dextrose 50 ml 06/05/19 14:03 06/10/19 22:14 D50w (25gm) Syringe IV 50 ml PRN PRN Administration Hypoglycemia Famotidine 20 mg 06/05/19 22:00 06/11/19 10:21 Pepcid PO 20 mg DAILY ELIZABETH Administration Ferrous Gluconate 324 mg 06/05/19 22:00 06/11/19 10:21 Fergon PO 324 mg BID ELIZABETH Administration Finasteride 5 mg 06/06/19 10:00 06/11/19 10:21 Proscar PO 5 mg DAILY ELIZABETH Administration Heparin Sodium (Porcine) 5,000 unit 06/12/19 10:00 Heparin SUB-Q Q12HR [facility]ETH Hydralazine HCl 10 mg 06/07/19 14:00 06/07/19 13:42 Apresoline IV 10 mg Q3HR PRN Administration Elevated BP Hydromorphone HCl 0.5 mg 06/08/19 14:58 Dilaudid IV Q3H PRN Pain , Severe (7-10) Ertapenem 1 gm/ Sodium 50 mls @ 100 mls/hr 06/09/19 13:00 06/11/19 12:44 Chloride IV 100 mls/hr Q24H ELIZABETH Administration Insulin Human Lispro 0 unit 06/05/19 16:30 06/11/19 12:40 Humalog SUB-Q 4 unit ACHS ELIZABETH Administration Protocol Mirtazapine 15 mg 06/05/19 22:00 06/10/19 22:09 Remeron PO 15 mg QHS ELIZABETH Administration Ondansetron HCl 4 mg 06/08/19 14:58 Zofran IV Q8H PRN Nausea And Vomiting Oxycodone/Acetaminophen 1 tab 06/08/19 14:58 Percocet 5/325 PO Q6H PRN Pain, Moderate (4-6) Simple Syrup 15 ml 06/09/19 16:01 Simple Syrup FEEDTUBE PRN PRN Hypoglycemia Simple Syrup 30 ml 06/09/19 16:01 Simple Syrup FEEDTUBE PRN PRN Hypoglycemia Sodium Bicarbonate 325 mg 06/09/19 16:01 Sodium Bicarbonate FEEDTUBE PRN PRN For Clogged Feeding Tube Sodium Chloride 10 ml 06/05/19 22:00 06/11/19 12:07 Sodium Chloride Flush Syringe 10 Ml IV 10 ml BID ELIZABETH Administration Sodium Chloride 10 ml 06/05/19 14:00 06/06/19 17:33 Sodium Chloride Flush Syringe 10 Ml IV 10 ml PRN PRN Administration LINE FLUSH Sodium Chloride 10 ml 06/08/19 22:00 06/11/19 12:07 Sodium Chloride Flush Syringe 10 Ml IV Not Given BID ELIZABETH Sodium Chloride 10 ml 06/08/19 14:58 Sodium Chloride Flush Syringe 10 Ml IV PRN PRN LINE FLUSH Tamsulosin HCl 0.4 mg 06/06/19 10:00 06/11/19 10:21 Flomax PO 0.4 mg QDAY ELIZABETH Administration Vitamin B Complex/Vitamin C 1 each 06/06/19 10:00 06/11/19 10:21 Allbee With C PO 1 each QDAY ELIZABETH Administration Nutrition/Malnutrition Assess - Dietary Evaluation Nutrition/Malnutrition Findings: Nutrition Notes Start: 06/06/19 08:45 Freq: Status: Active Protocol: Document 06/11/19 11:10 LP (Rec: 06/11/19 11:12 LP [id number]) Nutrition Notes Initial or Follow up Reassessment Current Diagnosis Acute Kidney Injury,Decubitus( Pressure Ulcer),Sepsis, Hypertension,Malnutrition Other Pertinent Diagnosis Dementia, GERD, UTI, Metabolic encephalopathy Current Diet Glucerna 1.2 at 65ml/hr Labs/Tests BUN 30 Cr 2 K 3.4 BG 358 Pertinent Medications Reviewed Height 6 ft Weight 49.2 kg [place] Body Weight (kg) 80.90 BMI 14.7 Subjective/Other Information Pt tolerating TF at goal rate. Percent of energy/protein needs met: 100%/100% Burn Absent Trauma Absent #1 Nutrition Diagnosis Malnutrition Diagnosis Progress(for reassessment Continues documentation) Is patient on ventilator? No Is Patient Ambulatory and/or Out of Bed No REE-([facility]-confined to bed) 1571.844 Kcal/Kg value to use for calculation 40 Approximate Energy Requirements Using 1968 kcal/Kg Calculation Used for Recommendations Kcal/kg Additional Notes Pro needs 1.2-1.5g/k-74g/ day Fluid needs 1ml/kcal Nutrition Intervention Change Diet Order: TF Nutrition Support: Glucerna 1.2 at 65ml/hr with 100ml water flush q4h Kcal 1,872 Protein (gm) 94 Fluid (mL) 1,256 Goal #1 Meet at least 80% of kcal and protein needs via TF Goal #2 Wt maintenance and/or gain Anticipated Discharge Needs: Unable to determine at this time Follow-Up By: 06/17/19 Additional Comments Follow for TF tolerance - Attestation Statement I have reviewed and agreed w/ Malnutrition eval & tx plan: Yes
[2019-06-11] MEDS: REMERON PO SCH (23:05)
[2019-06-12] MEDS: HumaLOG SUB-Q SCH ×5 (00:07→22:34)
[2019-06-12 06:25] LABS: Calcium 9.5 mg/dL (8.4-10.2)
[2019-06-12] MEDS: QUESTRAN PO SCH ×3 (08:11→21:36)
--- NOTE | 2019-06-12 08:24 | Progress Note ---
Assessment and Plan 1. Acute kidney injury: Vasomotor PAPITO superimposed on CKD stage 3 in the setting of volume depletion. Renal US was negative for hydro. Renal function is stable. Monitor renal function. Avoid nephrotoxic agents. Meds dosage based on GFR. 2. FEN: Hypokalemia, K level is better. Hypernatremia, improved. Metabolic acidosis, monitor. Replete Phos. Monitor lytes. 3. UTI: On Ertapenem. 4. Metabolic Encephalopathy. 5. Anemia: POA. 6. Dysphagia: S/p PEG tube. 7. Adult failure to thrive. Subjective Date of service: 06/12/19 Principal diagnosis: Severe malnutrition Interval history: Patient was seen and examined at the bedside. Objective - Vital Signs Vital signs: Vital Signs - 12hr 06/11/19 06/12/19 06/12/19 22:00 02:33 07:27 Temperature 98.2 F 97.7 F Pulse Rate 74 44 L Pulse Rate [ 54 L Right Brachial] Respiratory 18 18 20 Rate Blood Pressure 126/90 123/63 O2 Sat by Pulse 100 90 69 L Oximetry - General Appearance General appearance: well-developed, appears stated age, other (emaciated, no distress) EENT: ATNC, PERRL Neck: other (Trachea midline) Respiratory: Present: Clear to Ascultation Cardiology: regular, S1S2, no murmurs Gastrointestinal: normoactive bowel sounds, no tenderness, no distended, other (PEG tube noted) Integumentary: other (abrasions over both legs) Neurologic: other (somnolent, not following any command) - Lab 06/13/19 04:51 06/13/19 04:51 Most recent lab results Calcium 9.5 mg/dL (8.4-10.2) 06/12/19 05:38 Phosphorus 1.30 mg/dL (2.5-4.5) L 06/12/19 05:38 Magnesium 2.10 mg/dL (1.7-2.3) 06/11/19 08:56 102.7 mg/dL (0.1-20.0) H 06/06/19 17:37 47 mmol/L 06/06/19 17:37 Medications & Allergies - Medications Allergies/Adverse Reactions: Allergies No Known Allergies Allergy (Verified 05/19/19 22:08) Home Medications: Home Medications Medication Instructions Recorded Confirmed Last Taken Type Cholestyramine/Aspartame 239.4 mg PO TID 05/20/19 06/05/19 Unknown History [Cholestyramine Light Powder] Famotidine [Pepcid] 20 mg PO BID 05/20/19 06/05/19 Unknown History Ferrous Gluconate [Fergon 240 MG 240 mg PO BID 05/20/19 06/05/19 Unknown History tab] Finasteride [Proscar] 5 mg PO DAILY 05/20/19 06/05/19 Unknown History Mirtazapine [Remeron 15mg TAB] 15 mg PO QHS 05/20/19 06/05/19 Unknown History Tamsulosin [Flomax] 0.4 mg PO QDAY 05/20/19 06/05/19 Unknown History Vitamin B Complex [B Complex] 1 each PO DAILY 05/20/19 06/05/19 Unknown History Aspirin EC 81 mg PO QDAY tablet 05/22/19 06/05/19 Unknown Rx Insulin Regular, Human [HumuLIN R] 0 units SUB-Q ACHS units 05/22/19 06/05/19 Unknown Rx Megestrol [Megace] 400 mg PO QDAY oral.liqd 05/22/19 06/05/19 Unknown Rx Insulin NPH/Regular [NovoLIN 70/30] 10 unit SQ BIDDIAB #1 vial 05/27/19 06/05/19 Unknown Rx Metoprolol [Lopressor TAB] 12.5 mg PO BID #60 tablet 05/27/19 06/05/19 Unknown Rx amLODIPine [Norvasc] 10 mg PO QDAY #60 tablet 05/27/19 06/05/19 Unknown Rx Active Medications: Generic Name Dose Route Start Last Admin Trade Name Freq PRN Reason Stop Dose Admin Acetaminophen 650 mg 06/08/19 14:58 Tylenol PO Q4H PRN Pain MILD(1-3)/Fever >100.5/[place] Albuterol 2.5 mg 06/05/19 14:00 Proventil IH Q4HRT PRN Shortness Of Breath Lipase/Protease/Amylase 1 each 06/09/19 16:01 Pancrerojelio Freed 10,500 Unit FEEDTUBE PRN PRN For Clogged Feeding Tube Aspirin 81 mg 06/12/19 10:00 Baby Aspirin PO QDAY ELIZABETH Cholestyramine Resin 4 gm 06/05/19 20:00 06/12/19 08:11 Questran PO 4 gm TID ELIZABETH Administration Dextrose 50 ml 06/05/19 14:03 06/10/19 22:14 D50w (25gm) Syringe IV 50 ml PRN PRN Administration Hypoglycemia Famotidine 20 mg 06/05/19 22:00 06/11/19 10:21 Pepcid PO 20 mg DAILY ELIZABETH Administration Ferrous Gluconate 324 mg 06/05/19 22:00 06/11/19 23:05 Fergon PO 324 mg BID ELIZABETH Administration Finasteride 5 mg 06/06/19 10:00 06/11/19 10:21 Proscar PO 5 mg DAILY ELIZABETH Administration Heparin Sodium (Porcine) 5,000 unit 06/12/19 10:00 Heparin SUB-Q Q12HR EL[facility]ETH Hydralazine HCl 10 mg 06/07/19 14:00 06/07/19 13:42 Apresoline IV 10 mg Q3HR PRN Administration Elevated BP Hydromorphone HCl 0.5 mg 06/08/19 14:58 Dilaudid IV Q3H PRN Pain , Severe (7-10) Ertapenem 1 gm/ Sodium 50 mls @ 100 mls/hr 06/09/19 13:00 06/11/19 12:44 Chloride IV 100 mls/hr Q24H ELIZABETH Administration Insulin Human Lispro 0 unit 06/05/19 16:30 06/12/19 08:11 Humalog SUB-Q 1 unit ACHS ELIZABETH Administration Protocol Mirtazapine 15 mg 06/05/19 22:00 06/11/19 23:05 Remeron PO 15 mg QHS ELIZABETH Administration Ondansetron HCl 4 mg 06/08/19 14:58 Zofran IV Q8H PRN Nausea And Vomiting Oxycodone/Acetaminophen 1 tab 06/08/19 14:58 Percocet 5/325 PO Q6H PRN Pain, Moderate (4-6) Simple Syrup 15 ml 06/09/19 16:01 Simple Syrup FEEDTUBE PRN PRN Hypoglycemia Simple Syrup 30 ml 06/09/19 16:01 Simple Syrup FEEDTUBE PRN PRN Hypoglycemia Sodium Bicarbonate 325 mg 06/09/19 16:01 Sodium Bicarbonate FEEDTUBE PRN PRN For Clogged Feeding Tube Sodium Chloride 10 ml 06/05/19 22:00 06/11/19 23:05 Sodium Chloride Flush Syringe 10 Ml IV 10 ml BID ELIZABETH Administration Sodium Chloride 10 ml 06/05/19 14:00 06/06/19 17:33 Sodium Chloride Flush Syringe 10 Ml IV 10 ml PRN PRN Administration LINE FLUSH Sodium Chloride 10 ml 06/08/19 22:00 06/11/19 23:06 Sodium Chloride Flush Syringe 10 Ml IV Not Given BID ELIZABETH Sodium Chloride 10 ml 06/08/19 14:58 Sodium Chloride Flush Syringe 10 Ml IV PRN PRN LINE FLUSH Tamsulosin HCl 0.4 mg 06/06/19 10:00 06/11/19 10:21 Flomax PO 0.4 mg QDAY ELIZABETH Administration Vitamin B Complex/Vitamin C 1 each 06/06/19 10:00 06/11/19 10:21 Allbee With C PO 1 each QDAY ELIZABETH Administration
--- NOTE | 2019-06-12 09:13 | Progress Note ---
Assessment and Plan Previous Cultures: 05/19/2019 Blood: no growth 05/19/2019 Urine: ESBL Klebsiella Cultures: 06/08/2019 Urine: ESBL Klebsiella 06/08/2019 Blood: NGTD A/P: 68 yo M PMHx dementia, malnutrition, GERD, HTN admitted with AMS, ESBL UTI. 1) Severe sepsis secondary to ESBL UTI - Improved. ESBL Kelbsiella, sensitive to carbapenems and fluorquinolones. Will start ertapenem for now and stop ceftriaxone. If he responds well can consider discharge on levofloxacin. Renal U S - no acute infective processes or stone. L renal cysts 2) Metabolic encephalopathy - remains altered, With slight improvement. CT head normal. Brain MRI shows stable chronic encephalomalacia in the left frontal lobe and left cerebellar hemisphere. Verbal defects expected. Neurology following. 3) Dementia 4) GERD 5) Malnutrition - s/p EGD and Peg placement 06/09/19 6) HTN Recs: -Continue ertapenem 1gm IV every 24, D4 -When clinically improved, anticipate discharge on levofloxacin total 14 days ending 06-23-19 Dr. Mccormick will be rounding on Saturday. Dr. Bond is health education coordinator this weekend, please call for questions [phone]. Matilda Goetz NP [facility] M: [id number] O:[phone] Subjective Date of service: 06/12/19 Principal diagnosis: Severe malnutrition Interval history: Patient seen and examined. Awake, more alert today. Non-verbal. No fevers. Objective - Exam Narrative Exam: Constitutional: More awake. No acute distress Head, Ears, Nose: Normocephalic, atraumatic. External ears, nose normal Eyes: Conjunctivae/corneas clear. No icterus. No ptosis. Neck: Supple, no meningeal signs Oral: poor dentition, moist mucous membranes Cardiovascular: S1, S2 normal. Normal rhythm Respiratory: Good air entry, clear to auscultation bilaterally GI: Soft, non-tender. +peg tube Musculoskeletal: No pedal edema Skin: Numerous abrasion and excoriations on all extremities. R thigh bandaged. Hem/Lymphatic: No palpable cervical or supraclavicular nodes. No lymphangitis Psych: more awake. Neurological: Awake. non-verbal - Constitutional Vitals: Vital Signs Temp Pulse Resp BP Pulse Ox 97.7 F 44 L 20 123/63 69 L 06/12/19 07:27 06/12/19 07:27 06/12/19 07:27 06/12/19 07:27 06/12/19 07:27 Temperature -Last 24 Hours Temperature 97.7 F Temperature 98.2 F Temperature 98.8 F Temperature 97.9 F - Labs CBC & Chem 7: 06/10/19 05:20 06/12/19 05:38 Labs: Abnormal lab results 06/11/19 06/11/19 06/11/19 Range/Units 11:52 17:41 23:52 Chloride (98-107) mmol/L Carbon Dioxide (22-30) mmol/L BUN (9-20) mg/dL Creatinine (0.8-1.5) mg/dL Glucose (75-100) mg/dL POC Glucose 339 H 311 H 119 H (70-105) Phosphorus (2.5-4.5) mg/dL 06/12/19 06/12/19 Range/Units 05:38 06:41 Chloride 115.2 H (98-107) mmol/L Carbon Dioxide 18 L (22-30) mmol/L BUN 32 H (9-20) mg/dL Creatinine 2.0 H (0.8-1.5) mg/dL Glucose 164 H (75-100) mg/dL POC Glucose 178 H (70-105) Phosphorus 1.30 L (2.5-4.5) mg/dL
[2019-06-12] MEDS: ALLBEE WITH C PO SCH (09:37)
[2019-06-12] MEDS: PEPCID PO SCH (09:37)
[2019-06-12] MEDS: FLOMAX PO SCH (09:38)
[2019-06-12] MEDS: SODIUM CHLORIDE FLUSH SYRINGE 10 ML IV SCH ×4 (09:38→22:20)
[2019-06-12] MEDS: FERGON PO SCH ×2 (09:38→21:41)
[2019-06-12] MEDS: PROSCAR PO SCH (09:38)
[2019-06-12] MEDS: BABY ASPIRIN PO SCH (09:38)
[2019-06-12] MEDS: HEPARIN SUB-Q SCH ×2 (09:39→21:41)
[2019-06-12] MEDS ORDERED: SODIUM PHOSPHATE 45 MMOL in NACL 0.9% 500 ML 500 ML IV ONE (09:43)
--- NOTE | 2019-06-12 12:26 | Consultation ---
History of Present Illness Consult date: 06/12/19 Requesting physician: EMILY FLOR Consult reason: bradycardia History of present illness: The pt is a 68 YO male with a past medical history of CMP, HTN, CKD, dementia. He has been seen by our practice on prior hospitalization. Pt is lethargic on evaluation and thus HPI is obtained per the chart. He presented on 06/05 for evaluation of altered mental status. He was subsequently diagnosed with acute encephalopathy, UTI due to ESBL klebsiella pneumonia, PAPITO on CKD. He was noted to be bradycardic and thus cardiology has been consulted. Review of ECGs and telemetry shows sinus bradycardia with HR low in 40s, no pauses or AVB. Echo done 05/19/2019 showed EF 25-30%, pericardium thickened and calcified, LV mild to mod dilated, mild to mod LVH, LA mildly dilated, trace MR, trace TR. Pt was recommended stress test to r/o ischemic CMP at that time but pt refused stress test. Past History Past Medical History: GERD, hypertension, other ([place], Malnutrition) Medications and Allergies Allergies Allergy/AdvReac Type Severity Reaction Status Date / Time No Known Allergies Allergy Verified 05/19/19 22:08 Home Medications Medication Instructions Recorded Confirmed Last Taken Type Cholestyramine/Aspartame 239.4 mg PO TID 05/20/19 06/05/19 Unknown History [Cholestyramine Light Powder] Famotidine [Pepcid] 20 mg PO BID 05/20/19 06/05/19 Unknown History Ferrous Gluconate [Fergon 240 MG 240 mg PO BID 05/20/19 06/05/19 Unknown History tab] Finasteride [Proscar] 5 mg PO DAILY 05/20/19 06/05/19 Unknown History Mirtazapine [Remeron 15mg TAB] 15 mg PO QHS 05/20/19 06/05/19 Unknown History Tamsulosin [Flomax] 0.4 mg PO QDAY 05/20/19 06/05/19 Unknown History Vitamin B Complex [B Complex] 1 each PO DAILY 05/20/19 06/05/19 Unknown History Aspirin EC 81 mg PO QDAY tablet 05/22/19 06/05/19 Unknown Rx Insulin Regular, Human [HumuLIN R] 0 units SUB-Q ACHS units 05/22/19 06/05/19 Unknown Rx Megestrol [Megace] 400 mg PO QDAY oral.liqd 05/22/19 06/05/19 Unknown Rx Insulin NPH/Regular [NovoLIN 70/30] 10 unit SQ BIDDIAB #1 vial 05/27/19 06/05/19 Unknown Rx Metoprolol [Lopressor TAB] 12.5 mg PO BID #60 tablet 05/27/19 06/05/19 Unknown Rx amLODIPine [Norvasc] 10 mg PO QDAY #60 tablet 05/27/19 06/05/19 Unknown Rx Active Meds: Active Medications Acetaminophen (Tylenol) 650 mg PO Q4H PRN PRN Reason: Pain MILD(1-3)/Fever >100.5/POLANCO Albuterol (Proventil) 2.5 mg IH Q4HRT PRN PRN Reason: Shortness Of Breath Lipase/Protease/Amylase (Pancrerojelio Dr 10,500 Unit) 1 each FEEDTUBE PRN PRN PRN Reason: For Clogged Feeding Tube Aspirin (Baby Aspirin) 81 mg PO QDAY [facility] Last Admin: 06/12/19 09:38 Dose: 81 mg Documented by: Cholestyramine Resin (Questran) 4 gm PO TID [facility] Last Admin: 06/12/19 08:11 Dose: 4 gm Documented by: Dextrose (D50w (25gm) Syringe) 50 ml IV PRN PRN PRN Reason: Hypoglycemia Last Admin: 06/10/19 22:14 Dose: 50 ml Documented by: Famotidine (Pepcid) 20 mg PO DAILY [facility] Last Admin: 06/12/19 09:37 Dose: 20 mg Documented by: Ferrous Gluconate (Fergon) 324 mg PO BID [facility] Last Admin: 06/12/19 09:38 Dose: 324 mg Documented by: Finasteride (Proscar) 5 mg PO DAILY [facility] Last Admin: 06/12/19 09:38 Dose: 5 mg Documented by: Heparin Sodium (Porcine) (Heparin) 5,000 unit SUB-Q Q12HR [facility] Last Admin: 06/12/19 09:39 Dose: 5,000 unit Documented by: Hydralazine HCl (Apresoline) 10 mg IV Q3HR PRN PRN Reason: Elevated BP Last Admin: 06/07/19 13:42 Dose: 10 mg Documented by: Hydromorphone HCl (Dilaudid) 0.5 mg IV Q3H PRN PRN Reason: Pain , Severe (7-10) Ertapenem 1 gm/ Sodium (Chloride) 50 mls @ 100 mls/hr IV Q24H [facility] Last Admin: 06/11/19 12:44 Dose: 100 mls/hr Documented by: Sodium Phosphate 45 mmol/ (Sodium Chloride) 515 mls @ 84 mls/hr IV ONCE ONE Stop: 06/12/19 15:50 Last Admin: 06/12/19 11:13 Dose: 84 mls/hr Documented by: Insulin Human Lispro (Humalog) 0 unit SUB-Q ACHS [facility]; Protocol Last Admin: 06/12/19 12:18 Dose: 2 unit Documented by: Mirtazapine (Remeron) 15 mg PO QHS [facility] Last Admin: 06/11/19 23:05 Dose: 15 mg Documented by: Ondansetron HCl (Zofran) 4 mg IV Q8H PRN PRN Reason: Nausea And Vomiting Oxycodone/Acetaminophen (Percocet 5/325) 1 tab PO Q6H PRN PRN Reason: Pain, Moderate (4-6) Simple Syrup (Simple Syrup) 15 ml FEEDTUBE PRN PRN PRN Reason: Hypoglycemia Simple Syrup (Simple Syrup) 30 ml FEEDTUBE PRN PRN PRN Reason: Hypoglycemia Sodium Bicarbonate (Sodium Bicarbonate) 325 mg FEEDTUBE PRN PRN PRN Reason: For Clogged Feeding Tube Sodium Chloride (Sodium Chloride Flush Syringe 10 Ml) 10 ml IV BID [facility] Last Admin: 06/12/19 09:38 Dose: 10 ml Documented by: Sodium Chloride (Sodium Chloride Flush Syringe 10 Ml) 10 ml IV PRN PRN PRN Reason: LINE FLUSH Last Admin: 06/06/19 17:33 Dose: 10 ml Documented by: Sodium Chloride (Sodium Chloride Flush Syringe 10 Ml) 10 ml IV BID [facility] Last Admin: 06/12/19 09:39 Dose: Not Given Documented by: Sodium Chloride (Sodium Chloride Flush Syringe 10 Ml) 10 ml IV PRN PRN PRN Reason: LINE FLUSH Tamsulosin HCl (Flomax) 0.4 mg PO QDAY [facility] Last Admin: 06/12/19 09:38 Dose: 0.4 mg Documented by: Vitamin B Complex/Vitamin C (Allbee With C) 1 each PO QDAY [facility] Last Admin: 06/12/19 09:37 Dose: 1 each Documented by: Review of Systems ROS unobtainable: due to mental status Cardiovascular: no chest pain Physical Examination Vital Signs Temp Pulse Resp BP Pulse Ox 89.0 F L 84 22 141/77 95 06/05/19 10:39 06/05/19 10:39 06/05/19 10:39 06/05/19 10:39 06/05/19 10:39 General appearance: other (lethargic, withdrawn) HEENT: Positive: PERRL Neck: Positive: neck supple, trachea midline Cardiac: Positive: Regular Rhythm, S1/S2 Lungs: Positive: Decreased Breath Sounds Neuro: Positive: Other (lethargic, withdrawn) Skin: Negative: Rash Musculoskeletal: No Pain Extremities: Absent: edema Results 06/10/19 05:20 06/12/19 05:38 Comprehensive Metabolic Panel 06/12/19 Range/Units 05:38 Sodium 142 (137-145) mmol/L Potassium 4.0 (3.6-5.0) mmol/L Chloride 115.2 H (98-107) mmol/L Carbon Dioxide 18 L (22-30) mmol/L BUN 32 H (9-20) mg/dL Creatinine 2.0 H (0.8-1.5) mg/dL Glucose 164 H (75-100) mg/dL Calcium 9.5 (8.4-10.2) mg/dL - Imaging and Cardiology Echo: report reviewed ( 05/19/2019 showed EF 25-30%, pericardium thickened and calcified, LV mild to mod dilated, mild to mod LVH, LA mildly dilated, trace MR, trace TR. ) EKG: report reviewed, image reviewed EKG interpretations - Telemetry EKG Rhythm: Sinus Bradycardia - EKG Sinus rhythms and dysrhythmias: sinus bradycardia Assessment and Plan Pt with acute encephalopathy, UTI due to ESBL klebsiella pneumonia, PAPITO on CKD. He was noted to be bradycardic and thus cardiology has been consulted. Review of ECGs and telemetry shows sinus bradycardia with HR low in 40s, no pauses or AVB, BPs WNL and stable. Thyroid profile WNL. Echo done 05/19/2019 showed EF 25-30%, pericardium thickened and calcified, LV mild to mod dilated, mild to mod LVH, LA mildly dilated, trace MR, trace TR. Pt was recommended stress test to r/o ischemic CMP at that time but pt refused stress test. Pt's home medication regimen includes lopressor 12.5mg BID although this medication does not appear to have been resumed. Cont to avoid AV dalila blocking agents. Currently stable cardiac status. Cont to monitor on telemetry. The patient has been seen in conjunction with Dr. Nancie Gordon who agrees with the assessment and plan of care. - Patient Problems (1) Sinus bradycardia Current Visit: Yes Status: Acute (2) UTI (urinary tract infection) Current Visit: Yes Status: Acute Qualifiers: Encounter type: initial encounter (3) Encephalopathy acute Current Visit: Yes Status: Acute (4) Acute on chronic renal insufficiency Current Visit: Yes Status: Acute (5) Cardiomyopathy Current Visit: Yes Status: Chronic (6) Hypertension Current Visit: Yes Status: Chronic Qualifiers: Hypertension type: essential hypertension Qualified Code(s): I10 - Essential (primary) hypertension
[2019-06-12] MEDS: INVanz 1 GM in NACL 0.9% 50 ML IV SCH (13:45)
--- NOTE | 2019-06-12 13:53 | Progress Note ---
Subjective Date of service: 06/12/19 Principal diagnosis: Severe malnutrition Interval history: Spoke to son briefly at request of Dr. Barone. He was told when at [facility] in [place] in 2005 had sinus infection that went up into brain leading to surgery. Not aware of any strokes. Not aware of any seizures or seizure medication. Lives with mother, has CNAs or visiting nurses alternating, 7 days per week and is seen by his son morning and evening. Was in [facility] in [place], [place] in Sep 2018 and other times since then for ups and downs of glucose, brought here finally in April this year. Was having falls in [place] and some here when he fails to use his rolling walker. Up until admission was cooking some for himself, using walker or wheelchair. I ordered medical records DANIELE from both facilities. Updated Dr. Barone who is transferring him probably to [facility] and consulting pulmonology for pH 7.2 and cardiology for bradycardia (but normal BP). Objective - Vital Sign Vital Signs - 12hr 06/12/19 06/12/19 06/12/19 02:33 07:27 10:00 Temperature 98.2 F 97.7 F Pulse Rate 74 44 L Pulse Rate [ 44 L Right Brachial] Respiratory 18 20 20 Rate Blood Pressure 126/90 123/63 O2 Sat by Pulse 90 69 L Oximetry - Laboratory Findings CBC and BMP: 06/10/19 05:20 06/12/19 05:38 Abnormal Lab Findings: Abnormal Labs 06/05/19 06/05/19 06/05/19 10:24 11:11 11:11 WBC RBC Hgb 11.2 L Hct 33.2 L RDW 17.3 H [place] % (Auto) Lymph # 0.9 L Seg Neutrophils % 76.0 H Seg Neutrophils # APTT 37.7 H POC ABG pH POC ABG pO2 Sodium Potassium Chloride Carbon Dioxide BUN Creatinine Glucose POC Glucose 125 H Hemoglobin A1c Lactic Acid Phosphorus Magnesium AST Alkaline Phosphatase Troponin T Total Protein Albumin HDL Cholesterol Urine WBC (Auto) Urine Creatinine 06/05/19 06/05/19 06/05/19 11:11 11:11 11:36 WBC RBC Hgb Hct RDW [place] % (Auto) Lymph # Seg Neutrophils % Seg Neutrophils # APTT POC ABG pH POC ABG pO2 Sodium 147 H Potassium Chloride 115.9 H Carbon Dioxide 18 L BUN 45 H Creatinine 2.4 H Glucose 118 H POC Glucose 109 H Hemoglobin A1c Lactic Acid 0.50 L Phosphorus Magnesium AST Alkaline Phosphatase 147 H Troponin T 0.047 H Total Protein Albumin 3.5 L HDL Cholesterol 115 H Urine WBC (Auto) Urine Creatinine 06/05/19 06/05/19 06/05/19 13:21 14:03 16:16 WBC RBC Hgb Hct RDW [place] % (Auto) Lymph # Seg Neutrophils % Seg Neutrophils # APTT POC ABG pH POC ABG pO2 Sodium Potassium Chloride Carbon Dioxide BUN Creatinine Glucose POC Glucose 56 L Hemoglobin A1c Lactic Acid 0.50 L Phosphorus Magnesium AST Alkaline Phosphatase Troponin T Total Protein Albumin HDL Cholesterol Urine WBC (Auto) 14.0 H Urine Creatinine 06/05/19 06/05/19 06/05/19 18:52 19:38 20:07 WBC RBC Hgb Hct RDW [place] % (Auto) Lymph # Seg Neutrophils % Seg Neutrophils # APTT POC ABG pH POC ABG pO2 Sodium Potassium Chloride Carbon Dioxide BUN Creatinine Glucose 128 H POC Glucose < 40 L 140 H Hemoglobin A1c Lactic Acid Phosphorus Magnesium AST Alkaline Phosphatase Troponin T Total Protein Albumin HDL Cholesterol Urine WBC (Auto) Urine Creatinine 06/05/19 06/06/19 06/06/19 21:46 02:06 04:22 WBC RBC Hgb Hct RDW 18.1 H [place] % (Auto) Lymph # Seg Neutrophils % 71.8 H Seg Neutrophils # APTT POC ABG pH POC ABG pO2 Sodium Potassium Chloride Carbon Dioxide BUN Creatinine Glucose POC Glucose 141 H 213 H Hemoglobin A1c Lactic Acid Phosphorus Magnesium AST Alkaline Phosphatase Troponin T Total Protein Albumin HDL Cholesterol Urine WBC (Auto) Urine Creatinine 06/06/19 06/06/19 06/06/19 04:22 05:20 07:42 WBC RBC Hgb Hct RDW [place] % (Auto) Lymph # Seg Neutrophils % Seg Neutrophils # APTT POC ABG pH POC ABG pO2 Sodium Potassium 5.1 H Chloride 112.2 H Carbon Dioxide 13 L BUN 44 H Creatinine 2.3 H Glucose 182 H POC Glucose 237 H 247 H Hemoglobin A1c Lactic Acid Phosphorus Magnesium 2.60 H AST 45 H Alkaline Phosphatase 164 H Troponin T Total Protein Albumin 3.5 L HDL Cholesterol Urine WBC (Auto) Urine Creatinine 06/06/19 06/06/19 06/06/19 10:48 13:19 17:34 WBC RBC Hgb Hct RDW [place] % (Auto) Lymph # Seg Neutrophils % Seg Neutrophils # APTT POC ABG pH POC ABG pO2 Sodium Potassium Chloride Carbon Dioxide BUN Creatinine Glucose POC Glucose 167 H 108 H < 40 L Hemoglobin A1c Lactic Acid Phosphorus Magnesium AST Alkaline Phosphatase Troponin T Total Protein Albumin HDL Cholesterol Urine WBC (Auto) Urine Creatinine 06/06/19 06/06/19 06/06/19 17:37 18:10 20:50 WBC RBC Hgb Hct RDW [place] % (Auto) Lymph # Seg Neutrophils % Seg Neutrophils # APTT POC ABG pH POC ABG pO2 Sodium Potassium Chloride Carbon Dioxide BUN Creatinine Glucose 71 L POC Glucose 227 H Hemoglobin A1c Lactic Acid Phosphorus Magnesium AST Alkaline Phosphatase Troponin T Total Protein Albumin HDL Cholesterol Urine WBC (Auto) Urine Creatinine 102.7 H 06/07/19 06/07/19 06/07/19 02:36 05:40 07:59 WBC RBC Hgb Hct RDW [place] % (Auto) Lymph # Seg Neutrophils % Seg Neutrophils # APTT POC ABG pH POC ABG pO2 Sodium Potassium Chloride Carbon Dioxide BUN Creatinine Glucose POC Glucose 144 H 183 H 207 H Hemoglobin A1c Lactic Acid Phosphorus Magnesium AST Alkaline Phosphatase Troponin T Total Protein Albumin HDL Cholesterol Urine WBC (Auto) Urine Creatinine 06/07/19 06/07/19 06/07/19 11:40 14:35 15:12 WBC RBC Hgb Hct RDW [place] % (Auto) Lymph # Seg Neutrophils % Seg Neutrophils # APTT POC ABG pH POC ABG pO2 Sodium Potassium Chloride Carbon Dioxide BUN 40 H Creatinine 2.2 H Glucose 154 H POC Glucose 160 H 164 H Hemoglobin A1c Lactic Acid Phosphorus Magnesium AST Alkaline Phosphatase Troponin T Total Protein Albumin HDL Cholesterol Urine WBC (Auto) Urine Creatinine 06/07/19 06/07/19 06/08/19 16:35 21:43 02:00 WBC RBC Hgb Hct RDW [place] % (Auto) Lymph # Seg Neutrophils % Seg Neutrophils # APTT POC ABG pH POC ABG pO2 Sodium Potassium Chloride Carbon Dioxide BUN Creatinine Glucose POC Glucose 181 H 62 L 126 H Hemoglobin A1c Lactic Acid Phosphorus Magnesium AST Alkaline Phosphatase Troponin T Total Protein Albumin HDL Cholesterol Urine WBC (Auto) Urine Creatinine 06/08/19 06/08/19 06/08/19 05:46 05:55 05:55 WBC 3.1 L RBC Hgb 10.8 L Hct 31.6 L D RDW 16.8 H [place] % (Auto) 14.3 H Lymph # 0.9 L Seg Neutrophils % Seg Neutrophils # 1.6 L APTT POC ABG pH POC ABG pO2 Sodium Potassium Chloride Carbon Dioxide 21 L BUN 38 H Creatinine 2.2 H Glucose 167 H POC Glucose 147 H Hemoglobin A1c Lactic Acid Phosphorus Magnesium AST Alkaline Phosphatase 130 H Troponin T Total Protein 6.2 L Albumin 3.0 L HDL Cholesterol Urine WBC (Auto) Urine Creatinine 06/08/19 06/08/19 06/08/19 07:48 17:49 21:47 WBC RBC Hgb Hct RDW [place] % (Auto) Lymph # Seg Neutrophils % Seg Neutrophils # APTT POC ABG pH POC ABG pO2 Sodium Potassium Chloride Carbon Dioxide BUN Creatinine Glucose POC Glucose 179 H 127 H 161 H Hemoglobin A1c Lactic Acid Phosphorus Magnesium AST Alkaline Phosphatase Troponin T Total Protein Albumin HDL Cholesterol Urine WBC (Auto) Urine Creatinine 06/08/19 06/09/19 06/09/19 22:14 03:12 04:34 WBC RBC Hgb Hct RDW [place] % (Auto) Lymph # Seg Neutrophils % Seg Neutrophils # APTT POC ABG pH POC ABG pO2 Sodium Potassium Chloride Carbon Dioxide BUN Creatinine Glucose POC Glucose 59 L 163 H Hemoglobin A1c 10.8 H Lactic Acid Phosphorus Magnesium AST Alkaline Phosphatase Troponin T Total Protein Albumin HDL Cholesterol Urine WBC (Auto) Urine Creatinine 06/09/19 06/09/19 06/09/19 05:02 07:39 08:34 WBC 3.1 L RBC Hgb 10.6 L Hct 31.7 L RDW 17.0 H [place] % (Auto) 13.8 H Lymph # 1.0 L Seg Neutrophils % Seg Neutrophils # 1.5 L APTT POC ABG pH POC ABG pO2 Sodium Potassium Chloride Carbon Dioxide BUN 37 H Creatinine 2.0 H Glucose 176 H POC Glucose 206 H Hemoglobin A1c Lactic Acid Phosphorus Magnesium AST Alkaline Phosphatase Troponin T Total Protein 5.8 L Albumin 2.8 L HDL Cholesterol Urine WBC (Auto) Urine Creatinine 06/09/19 06/09/19 06/10/19 17:55 21:36 05:20 WBC RBC Hgb Hct RDW [place] % (Auto) Lymph # Seg Neutrophils % Seg Neutrophils # APTT POC ABG pH POC ABG pO2 Sodium Potassium 3.3 L Chloride Carbon Dioxide BUN 34 H Creatinine 2.0 H Glucose 212 H POC Glucose 265 H 132 H Hemoglobin A1c Lactic Acid Phosphorus Magnesium AST Alkaline Phosphatase Troponin T Total Protein Albumin HDL Cholesterol Urine WBC (Auto) Urine Creatinine 06/10/19 06/10/1919 05:20 07:00 11:48 WBC 4.4 L RBC 3.47 L Hgb 10.0 L Hct 29.6 L RDW 16.9 H [place] % (Auto) Lymph # Seg Neutrophils % Seg Neutrophils # APTT POC ABG pH POC ABG pO2 Sodium Potassium Chloride Carbon Dioxide BUN Creatinine Glucose POC Glucose 249 H 279 H Hemoglobin A1c Lactic Acid Phosphorus Magnesium AST Alkaline Phosphatase Troponin T Total Protein Albumin HDL Cholesterol Urine WBC (Auto) Urine Creatinine 06/10/19 06/10/19 06/10/19 18:25 21:50 23:22 WBC RBC Hgb Hct RDW [place] % (Auto) Lymph # Seg Neutrophils % Seg Neutrophils # APTT POC ABG pH POC ABG pO2 Sodium Potassium Chloride Carbon Dioxide BUN Creatinine Glucose POC Glucose 157 H 58 L 124 H Hemoglobin A1c Lactic Acid Phosphorus Magnesium AST Alkaline Phosphatase Troponin T Total Protein Albumin HDL Cholesterol Urine WBC (Auto) Urine Creatinine 06/11/19 06/11/19 06/11/19 05:15 06:48 11:52 WBC RBC Hgb Hct RDW [place] % (Auto) Lymph # Seg Neutrophils % Seg Neutrophils # APTT POC ABG pH POC ABG pO2 Sodium Potassium 3.4 L Chloride 108.1 H Carbon Dioxide BUN 30 H Creatinine 2.0 H Glucose 358 H POC Glucose 441 H 339 H Hemoglobin A1c Lactic Acid Phosphorus Magnesium AST Alkaline Phosphatase Troponin T Total Protein Albumin HDL Cholesterol Urine WBC (Auto) Urine Creatinine 06/11/19 06/11/19 06/12/19 17:41 23:52 05:38 WBC RBC Hgb Hct RDW [place] % (Auto) Lymph # Seg Neutrophils % Seg Neutrophils # APTT POC ABG pH POC ABG pO2 Sodium Potassium Chloride 115.2 H Carbon Dioxide 18 L BUN 32 H Creatinine 2.0 H Glucose 164 H POC Glucose 311 H 119 H Hemoglobin A1c Lactic Acid Phosphorus 1.30 L Magnesium AST Alkaline Phosphatase Troponin T Total Protein Albumin HDL Cholesterol Urine WBC (Auto) Urine Creatinine 06/12/19 06/12/19 06/12/19 06:41 10:34 11:49 WBC RBC Hgb Hct RDW [place] % (Auto) Lymph # Seg Neutrophils % Seg Neutrophils # APTT POC ABG pH POC ABG pO2 Sodium Potassium Chloride Carbon Dioxide BUN Creatinine Glucose POC Glucose 178 H 198 H 200 H Hemoglobin A1c Lactic Acid Phosphorus Magnesium AST Alkaline Phosphatase Troponin T Total Protein Albumin HDL Cholesterol Urine WBC (Auto) Urine Creatinine 06/12/19 13:30 WBC RBC Hgb Hct RDW [place] % (Auto) Lymph # Seg Neutrophils % Seg Neutrophils # APTT POC ABG pH 7.235 L POC ABG pO2 200 H Sodium Potassium Chloride Carbon Dioxide BUN Creatinine Glucose POC Glucose Hemoglobin A1c Lactic Acid Phosphorus Magnesium AST Alkaline Phosphatase Troponin T Total Protein Albumin HDL Cholesterol Urine WBC (Auto) Urine Creatinine
--- NOTE | 2019-06-12 13:56 | XRay Report ---
CHEST 1 VIEW INDICATION: hypoxia. COMPARISON: 06/05/2019 FINDINGS: Support devices: None. Heart: Within normal limits. Lungs/Pleura: No acute air space or interstitial disease. Additional findings: None. IMPRESSION: No acute findings. Signer Name: Pop Urbano Jr, MD Signed: 06/12/2019 1:51 PM Workstation Name: [id number]
[2019-06-12] MEDS: LEVAQUIN PO SCH (14:50)
--- NOTE | 2019-06-12 16:06 | Progress Note ---
Assessment and Plan Assessment and plan: Acute metabolic encephalopathy Neurochecks Neurology following MRI Brain neg for stroke Acute resp failure On supplemental Oxygen consult Pulmonology Sepsis, present on admission due to UTI On Ertapenem ID Physician following UTI due to ESBL Klebsiella pneumonia ID Physician following Started on Ertapenem Acute kidney injury Cr 2.0 Nephrology following Dementia Monitor Neurochecks Severe malnutrition BMI only 14.7 s/p PEG tube placed Sinus Bradycardia EKG sinus clarissa at 47 Consult Cardiology Full code status History Interval history: Altered mental status More lethargic today bradycardia low pulse ox Hospitalist Physical - Physical exam Narrative exam: Gen: Not in acute distress, lying in bed, HEENT: Normocephalic, atraumatic Neck: supple, no JVD Heart: S1 and S2 reg, no murmurs, rubs or gallop Lungs: Clear to auscultation, no wheeze Abd: soft, non tender, non distended, normal BS, Ext: No edema, no clubbing, no cyanosis Neuro:more lethargic, opens eyes, does not follow commands, moves all ext - Constitutional Vitals: Temp Pulse Resp BP Pulse Ox 97.9 F 43 L 20 127/70 100 06/12/19 13:06 06/12/19 13:06 06/12/19 13:06 06/12/19 13:06 06/12/19 13:06 General appearance: Present: other (lethargic, withdrawn) Results - Labs CBC & Chem 7: 06/10/19 05:20 06/12/19 05:38 Labs: Laboratory Last Values WBC 4.4 K/mm3 (4.5-11.0) L 06/10/19 05:20 RBC 3.47 M/mm3 (3.65-5.03) L 06/10/19 05:20 Hgb 10.0 gm/dl (11.8-15.2) L 06/10/19 05:20 Hct 29.6 % (35.5-45.6) L 06/10/19 05:20 MCV 85 fl (84-94) 06/10/19 05:20 MCH 29 pg (28-32) 06/10/19 05:20 MCHC 34 % (32-34) 06/10/19 05:20 RDW 16.9 % (13.2-15.2) H 06/10/19 05:20 Plt Count 167 K/mm3 (140-440) 06/10/19 05:20 Lymph % (Auto) 32.7 % (13.4-35.0) 06/09/19 07:39 [place] % (Auto) 13.8 % (0.0-7.3) H 06/09/19 07:39 Eos % (Auto) 3.9 % (0.0-4.3) 06/09/19 07:39 Baso % (Auto) 0.9 % (0.0-1.8) 06/09/19 07:39 Lymph # 1.0 K/mm3 (1.2-5.4) L 06/09/19 07:39 [place] # 0.4 K/mm3 (0.0-0.8) 06/09/19 07:39 Eos # 0.1 K/mm3 (0.0-0.4) 06/09/19 07:39 Baso # 0.0 K/mm3 (0.0-0.1) 06/09/19 07:39 Seg Neutrophils % 48.7 % (40.0-70.0) 06/09/19 07:39 Seg Neutrophils # 1.5 K/mm3 (1.8-7.7) L 06/09/19 07:39 APTT 37.7 Sec. (24.2-36.6) H 06/05/19 11:11 POC ABG pH 7.235 (7.35-7.45) L 06/12/19 13:30 POC ABG pCO2 40.9 (35-45) 06/12/19 13:30 POC ABG pO2 200 (80-105) H 06/12/19 13:30 POC ABG HCO3 17.3 (22-26 mml/L) 06/12/19 13:30 POC ABG Total CO2 19 (23-27mmol/L) 06/12/19 13:30 POC ABG O2 Sat 100 06/12/19 13:30 POC ABG Base Excess -10 ((-2) - (+3)mmol/L) 06/12/19 13:30 32 % 06/12/19 13:30 Sodium 142 mmol/L (137-145) 06/12/19 05:38 Potassium 4.0 mmol/L (3.6-5.0) 06/12/19 05:38 Chloride 115.2 mmol/L (98-107) H 06/12/19 05:38 Carbon Dioxide 18 mmol/L (22-30) L 06/12/19 05:38 13 mmol/L 06/12/19 05:38 BUN 32 mg/dL (9-20) H 06/12/19 05:38 2.0 mg/dL (0.8-1.5) H 06/12/19 05:38 Estimated GFR 41 ml/min 06/12/19 05:38 16 % 06/12/19 05:38 Glucose 164 mg/dL (75-100) H 06/12/19 05:38 POC Glucose 200 (70-105) H 06/12/19 11:49 10.8 % (4-6) H 06/08/19 22:14 Lactic Acid 0.50 mmol/L (0.7-2.0) L 06/05/19 14:03 Calcium 9.5 mg/dL (8.4-10.2) 06/12/19 05:38 Phosphorus 1.30 mg/dL (2.5-4.5) L 06/12/19 05:38 Magnesium 2.10 mg/dL (1.7-2.3) 06/11/19 08:56 0.30 mg/dL (0.1-1.2) 06/09/19 05:02 AST 28 units/L (5-40) 06/09/19 05:02 ALT 36 units/L (7-56) 06/09/19 05:02 125 units/L (35-129) 06/09/19 05:02 48.0 umol/L (25-60) 06/11/19 17:44 0.047 ng/mL (0.00-0.029) H 06/05/19 11:11 NT-Pro-B Natriuret Pep 446.0 pg/mL (0-900) 06/05/19 11:11 5.8 g/dL (6.3-8.2) L 06/09/19 05:02 2.8 g/dL (3.9-5) L 06/09/19 05:02 0.9 % 06/09/19 05:02 Triglycerides 60 mg/dL (2-149) 06/05/19 11:11 Cholesterol 181 mg/dL (50-199) 06/05/19 11:11 68 mg/dL (50-130) 06/05/19 11:11 115 mg/dL (40-59) H 06/05/19 11:11 1.57 % 06/05/19 11:11 TSH 0.630 mlU/mL (0.270-4.200) 06/05/19 13:26 Free T4 1.04 ng/dL (0.76-1.46) 06/05/19 13:26 Yellow (Yellow) 06/05/19 13:21 Slightly-cloudy (Clear) 06/05/19 13:21 6.0 (5.0-7.0) 06/05/19 13:21 Ur Specific [place] 1.012 (1.003-1.030) 06/05/19 13:21 30 mg/dl mg/dL (Negative) 06/05/19 13:21 Neg mg/dL (Negative) 06/05/19 13:21 Neg mg/dL (Negative) 06/05/19 13:21 Mod (Negative) 06/05/19 13:21 Neg (Negative) 06/05/19 13:21 Neg (Negative) 06/05/19 13:21 < 2.0 mg/dL (<2.0) 06/05/19 13:21 Ur Leukocyte Esterase Mod (Negative) 06/05/19 13:21 14.0 /HPF (0.0-6.0) H 06/05/19 13:21 3.0 /HPF (0.0-6.0) 06/05/19 13:21 2+ /HPF (Negative) 06/05/19 13:21 Few /HPF 06/05/19 13:21 102.7 mg/dL (0.1-20.0) H 06/06/19 17:37 47 mmol/L 06/06/19 17:37 Active Medications - Current Medications Current Medications: Generic Name Dose Route Start Last Admin Trade Name Freq PRN Reason Stop Dose Admin Acetaminophen 650 mg 06/08/19 14:58 Tylenol PO Q4H PRN Pain MILD(1-3)/Fever >100.5/POLANCO Albuterol 2.5 mg 06/05/19 14:00 Proventil IH Q4HRT PRN Shortness Of Breath Lipase/Protease/Amylase 1 each 06/09/19 16:01 Marcia Freed 10,500 Unit FEEDTUBE PRN PRN For Clogged Feeding Tube Aspirin 81 mg 06/12/19 10:00 06/12/19 09:38 Baby Aspirin PO 81 mg QDAY ELIZABETH Administration Cholestyramine Resin 4 gm 06/05/19 20:00 06/12/19 13:49 Questran PO 4 gm TID ELIZABETH Administration Dextrose 50 ml 06/05/19 14:03 06/10/19 22:14 D50w (25gm) Syringe IV 50 ml PRN PRN Administration Hypoglycemia Famotidine 20 mg 06/05/19 22:00 06/12/19 09:37 Pepcid PO 20 mg DAILY ELIZABETH Administration Ferrous Gluconate 324 mg 06/05/19 22:00 06/12/19 09:38 Fergon PO 324 mg BID ELIZABETH Administration Finasteride 5 mg 06/06/19 10:00 06/12/19 09:38 Proscar PO 5 mg DAILY ELIZABETH Administration Heparin Sodium (Porcine) 5,000 unit 06/12/19 10:00 06/12/19 09:39 Heparin SUB-Q 5,000 unit Q12HR ELIZABETH Administration Hydralazine HCl 10 mg 06/07/19 14:00 06/07/19 13:42 Apresoline IV 10 mg Q3HR PRN Administration Elevated BP Hydromorphone HCl 0.5 mg 06/08/19 14:58 Dilaudid IV Q3H PRN Pain , Severe (7-10) Insulin Human Lispro 0 unit 06/05/19 16:30 06/12/19 12:18 Humalog SUB-Q 2 unit ACHS ELIZABETH Administration Protocol Levofloxacin 750 mg 06/12/19 14:00 06/12/19 14:50 Levaquin PO 750 mg Q48H ELIZABETH Administration Mirtazapine 15 mg 06/05/19 22:00 06/11/19 23:05 Remeron PO 15 mg QHS ELIZABETH Administration Ondansetron HCl 4 mg 06/08/19 14:58 Zofran IV Q8H PRN Nausea And Vomiting Oxycodone/Acetaminophen 1 tab 06/08/19 14:58 Percocet 5/325 PO Q6H PRN Pain, Moderate (4-6) Simple Syrup 15 ml 06/09/19 16:01 Simple Syrup FEEDTUBE PRN PRN Hypoglycemia Simple Syrup 30 ml 06/09/19 16:01 Simple Syrup FEEDTUBE PRN PRN Hypoglycemia Sodium Bicarbonate 325 mg 06/09/19 16:01 Sodium Bicarbonate FEEDTUBE PRN PRN For Clogged Feeding Tube Sodium Chloride 10 ml 06/05/19 22:00 06/12/19 09:38 Sodium Chloride Flush Syringe 10 Ml IV 10 ml BID ELIZABETH Administration Sodium Chloride 10 ml 06/05/19 14:00 06/06/19 17:33 Sodium Chloride Flush Syringe 10 Ml IV 10 ml PRN PRN Administration LINE FLUSH Sodium Chloride 10 ml 06/08/19 22:00 06/12/19 09:39 Sodium Chloride Flush Syringe 10 Ml IV Not Given BID ELIZABETH Sodium Chloride 10 ml 06/08/19 14:58 Sodium Chloride Flush Syringe 10 Ml IV PRN PRN LINE FLUSH Tamsulosin HCl 0.4 mg 06/06/19 10:00 06/12/19 09:38 Flomax PO 0.4 mg QDAY ELIZABETH Administration Vitamin B Complex/Vitamin C 1 each 06/06/19 10:00 06/12/19 09:37 [place] With C PO 1 each QDAY ELIZABETH Administration Nutrition/Malnutrition Assess - Dietary Evaluation Nutrition/Malnutrition Findings: Nutrition Notes Start: 06/06/19 08:45 Freq: Status: Active Protocol: Document 06/11/19 11:10 LP (Rec: 06/11/19 11:12 LP [id number]) Nutrition Notes Initial or Follow up Reassessment Current Diagnosis Acute Kidney Injury,Decubitus( Pressure Ulcer),Sepsis, Hypertension,Malnutrition Other Pertinent Diagnosis Dementia, GERD, UTI, Metabolic encephalopathy Current Diet Glucerna 1.2 at 65ml/hr Labs/Tests BUN 30 Cr 2 K 3.4 BG 358 Pertinent Medications Reviewed Height 6 ft Weight 49.2 kg [place] Body Weight (kg) 80.90 BMI 14.7 Subjective/Other Information Pt tolerating TF at goal rate. Percent of energy/protein needs met: 100%/100% Burn Absent Trauma Absent #1 Nutrition Diagnosis Malnutrition Diagnosis Progress(for reassessment Continues documentation) Is patient on ventilator? No Is Patient Ambulatory and/or Out of Bed No REE-([place]-confined to bed) [phone] Kcal/Kg value to use for calculation 40 Approximate Energy Requirements Using 1968 kcal/Kg Calculation Used for Recommendations Kcal/kg Additional Notes Pro needs 1.2-1.5g/k-74g/ day Fluid needs 1ml/kcal Nutrition Intervention Change Diet Order: TF Nutrition Support: Glucerna 1.2 at 65ml/hr with 100ml water flush q4h Kcal 1,872 Protein (gm) 94 Fluid (mL) 1,256 Goal #1 Meet at least 80% of kcal and protein needs via TF Goal #2 Wt maintenance and/or gain Anticipated Discharge Needs: Unable to determine at this time Follow-Up By: 06/17/19 Additional Comments Follow for TF tolerance
--- NOTE | 2019-06-12 17:09 | Consultation ---
History of Present Illness Consult date: 06/12/19 Requesting physician: EMILY FLOR Reason for consult: other (Sepsis, acute hypoxic respiratory failure) History of present illness: The patient is a 68 Y male with a past medical history of CMP, HTN, CKD, dementia. He is unable to give a history. He presented on 06/05 for evaluation of altered mental status. Per chart and Dr. Flor, was noted by son on 06/05 to be not responding and finger stick glucose was very low. He was subsequently diagnosed with acute encephalopathy, UTI due to ESBL klebsiella pneumonia, PAPITO on CKD. He was noted to be bradycardic, echo done 05/19/2019 showed EF 25-30%,. Remains on supplemental oxygen at 3L/min and he remains encephalopathic. I have been asked to see the patient for sepsis and acute hypoxemic respiratory failure. Patient was seen and examined. Vitals, labs, medications, chart and imaging reviewed. Awake and tracks but not able to communicate. Past History Past Medical History: GERD, hypertension, other ([place], Malnutrition) Past Surgical History: No surgical history Social history: Family history: no significant family history (reviewed) Medications and Allergies Allergies Allergy/AdvReac Type Severity Reaction Status Date / Time No Known Allergies Allergy Verified 05/19/19 22:08 Home Medications Medication Instructions Recorded Confirmed Last Taken Type Cholestyramine/Aspartame 239.4 mg PO TID 05/20/19 06/05/19 Unknown History [Cholestyramine Light Powder] Famotidine [Pepcid] 20 mg PO BID 05/20/19 06/05/19 Unknown History Ferrous Gluconate [Fergon 240 MG 240 mg PO BID 05/20/19 06/05/19 Unknown History tab] Finasteride [Proscar] 5 mg PO DAILY 05/20/19 06/05/19 Unknown History Mirtazapine [Remeron 15mg TAB] 15 mg PO QHS 05/20/19 06/05/19 Unknown History Tamsulosin [Flomax] 0.4 mg PO QDAY 05/20/19 06/05/19 Unknown History Vitamin B Complex [B Complex] 1 each PO DAILY 05/20/19 06/05/19 Unknown History Aspirin EC 81 mg PO QDAY tablet 05/22/19 06/05/19 Unknown Rx Insulin Regular, Human [HumuLIN R] 0 units SUB-Q ACHS units 05/22/19 06/05/19 Unknown Rx Megestrol [Megace] 400 mg PO QDAY oral.liqd 05/22/19 06/05/19 Unknown Rx Insulin NPH/Regular [NovoLIN 70/30] 10 unit SQ BIDDIAB #1 vial 05/27/19 06/05/19 Unknown Rx Metoprolol [Lopressor TAB] 12.5 mg PO BID #60 tablet 05/27/19 06/05/19 Unknown R x amLODIPine [Norvasc] 10 mg PO QDAY #60 tablet 05/27/19 06/05/19 Unknown Rx Active Meds: Active Medications Acetaminophen (Tylenol) 650 mg PO Q4H PRN PRN Reason: Pain MILD(1-3)/Fever >100.5/POLANCO Albuterol (Proventil) 2.5 mg IH Q4HRT PRN PRN Reason: Shortness Of Breath Lipase/Protease/Amylase (Pancrerojelio Dr 10,500 Unit) 1 each FEEDTUBE PRN PRN PRN Reason: For Clogged Feeding Tube Aspirin (Baby Aspirin) 81 mg PO QDAY [facility] Last Admin: 06/12/19 09:38 Dose: 81 mg Documented by: Cholestyramine Resin (Questran) 4 gm PO TID [facility] Last Admin: 06/12/19 13:49 Dose: 4 gm Documented by: Dextrose (D50w (25gm) Syringe) 50 ml IV PRN PRN PRN Reason: Hypoglycemia Last Admin: 06/10/19 22:14 Dose: 50 ml Documented by: Famotidine (Pepcid) 20 mg PO DAILY [facility] Last Admin: 06/12/19 09:37 Dose: 20 mg Documented by: Ferrous Gluconate (Fergon) 324 mg PO BID [facility] Last Admin: 06/12/19 09:38 Dose: 324 mg Documented by: Finasteride (Proscar) 5 mg PO DAILY [facility] Last Admin: 06/12/19 09:38 Dose: 5 mg Documented by: Heparin Sodium (Porcine) (Heparin) 5,000 unit SUB-Q Q12HR [facility] Last Admin: 06/12/19 09:39 Dose: 5,000 unit Documented by: Hydralazine HCl (Apresoline) 10 mg IV Q3HR PRN PRN Reason: Elevated BP Last Admin: 06/07/19 13:42 Dose: 10 mg Documented by: Hydromorphone HCl (Dilaudid) 0.5 mg IV Q3H PRN PRN Reason: Pain , Severe (7-10) Insulin Human Lispro (Humalog) 0 unit SUB-Q ACHS [facility]; Protocol Last Admin: 06/12/19 12:18 Dose: 2 unit Documented by: Levofloxacin (Levaquin) 750 mg PO Q48H [facility] Last Admin: 06/12/19 14:50 Dose: 750 mg Documented by: Mirtazapine (Remeron) 15 mg PO QHS [facility] Last Admin: 06/11/19 23:05 Dose: 15 mg Documented by: Ondansetron HCl (Zofran) 4 mg IV Q8H PRN PRN Reason: Nausea And Vomiting Oxycodone/Acetaminophen (Percocet 5/325) 1 tab PO Q6H PRN PRN Reason: Pain, Moderate (4-6) Simple Syrup (Simple Syrup) 15 ml FEEDTUBE PRN PRN PRN Reason: Hypoglycemia Simple Syrup (Simple Syrup) 30 ml FEEDTUBE PRN PRN PRN Reason: Hypoglycemia Sodium Bicarbonate (Sodium Bicarbonate) 325 mg FEEDTUBE PRN PRN PRN Reason: For Clogged Feeding Tube Sodium Chloride (Sodium Chloride Flush Syringe 10 Ml) 10 ml IV BID [facility] Last Admin: 06/12/19 09:38 Dose: 10 ml Documented by: Sodium Chloride (Sodium Chloride Flush Syringe 10 Ml) 10 ml IV PRN PRN PRN Reason: LINE FLUSH Last Admin: 06/06/19 17:33 Dose: 10 ml Documented by: Sodium Chloride (Sodium Chloride Flush Syringe 10 Ml) 10 ml IV BID [facility] Last Admin: 06/12/19 09:39 Dose: Not Given Documented by: Sodium Chloride (Sodium Chloride Flush Syringe 10 Ml) 10 ml IV PRN PRN PRN Reason: LINE FLUSH Tamsulosin HCl (Flomax) 0.4 mg PO QDAY [facility] Last Admin: 06/12/19 09:38 Dose: 0.4 mg Documented by: Vitamin B Complex/Vitamin C ([place]bee With C) 1 each PO QDAY [facility] Last Admin: 06/12/19 09:37 Dose: 1 each Documented by: Review of Systems ROS unobtainable: due to mental status Physical Examination Vital signs: Vital Signs Temp Pulse Resp BP Pulse Ox 89.0 F L 84 22 141/77 95 06/05/19 10:39 06/05/19 10:39 06/05/19 10:39 06/05/19 10:39 06/05/19 10:39 Gen: Not in acute distress, lying in bed, cachexia,on 2LNC HEENT: Normocephalic, atraumatic Neck: supple, no JVD Heart: Bradycarida, S1 and S2, no murmurs, rubs or gallop Lungs: Clear to auscultation, no wheeze, no rhonchi Abd: soft, non tender, non distended, normal BS, Ext: No edema, no clubbing, no cyanosis , thin with excoriations/skin tears Neuro: Lethargic, opens eyes, does not follow commands, moves all extremities Results - Laboratory Findings CBC and BMP: 06/13/19 04:51 06/13/19 04:51 ABG POC ABG pH 7.235 (7.35-7.45) L 06/12/19 13:30 POC ABG pCO2 40.9 (35-45) 06/12/19 13:30 POC ABG pO2 200 (80-105) H 06/12/19 13:30 POC ABG HCO3 17.3 (22-26 mml/L) 06/12/19 13:30 POC ABG Total CO2 19 (23-27mmol/L) 06/12/19 13:30 POC ABG O2 Sat 100 06/12/19 13:30 Abnormal lab findings: Abnormal Labs 06/05/19 06/05/19 06/05/19 10:24 11:11 11:11 WBC RBC Hgb 11.2 L Hct 33.2 L RDW 17.3 H [place] % (Auto) Lymph # 0.9 L Seg Neutrophils % 76.0 H Seg Neutrophils # APTT 37.7 H POC ABG pH POC ABG pO2 Sodium Potassium Chloride Carbon Dioxide BUN Creatinine Glucose POC Glucose 125 H Hemoglobin A1c Lactic Acid Phosphorus Magnesium AST Alkaline Phosphatase Troponin T Total Protein Albumin HDL Cholesterol Urine WBC (Auto) Urine Creatinine 06/05/19 06/05/19 06/05/19 11:11 11:11 11:36 WBC RBC Hgb Hct RDW [place] % (Auto) Lymph # Seg Neutrophils % Seg Neutrophils # APTT POC ABG pH POC ABG pO2 Sodium 147 H Potassium Chloride 115.9 H Carbon Dioxide 18 L BUN 45 H Creatinine 2.4 H Glucose 118 H POC Glucose 109 H Hemoglobin A1c Lactic Acid 0.50 L Phosphorus Magnesium AST Alkaline Phosphatase 147 H Troponin T 0.047 H Total Protein Albumin 3.5 L HDL Cholesterol 115 H Urine WBC (Auto) Urine Creatinine 06/05/19 06/05/19 06/05/19 13:21 14:03 16:16 WBC RBC Hgb Hct RDW [place] % (Auto) Lymph # Seg Neutrophils % Seg Neutrophils # APTT POC ABG pH POC ABG pO2 Sodium Potassium Chloride Carbon Dioxide BUN Creatinine Glucose POC Glucose 56 L Hemoglobin A1c Lactic Acid 0.50 L Phosphorus Magnesium AST Alkaline Phosphatase Troponin T Total Protein Albumin HDL Cholesterol Urine WBC (Auto) 14.0 H Urine Creatinine 06/05/19 06/05/19 06/05/19 18:52 19:38 20:07 WBC RBC Hgb Hct RDW [place] % (Auto) Lymph # Seg Neutrophils % Seg Neutrophils # APTT POC ABG pH POC ABG pO2 Sodium Potassium Chloride Carbon Dioxide BUN Creatinine Glucose 128 H POC Glucose < 40 L 140 H Hemoglobin A1c Lactic Acid Phosphorus Magnesium AST Alkaline Phosphatase Troponin T Total Protein Albumin HDL Cholesterol Urine WBC (Auto) Urine Creatinine 06/05/19 06/06/19 06/06/19 21:46 02:06 04:22 WBC RBC Hgb Hct RDW 18.1 H [place] % (Auto) Lymph # Seg Neutrophils % 71.8 H Seg Neutrophils # APTT POC ABG pH POC ABG pO2 Sodium Potassium Chloride Carbon Dioxide BUN Creatinine Glucose POC Glucose 141 H 213 H Hemoglobin A1c Lactic Acid Phosphorus Magnesium AST Alkaline Phosphatase Troponin T Total Protein Albumin HDL Cholesterol Urine WBC (Auto) Urine Creatinine 06/06/19 06/06/19 06/06/19 04:22 05:20 07:42 WBC RBC Hgb Hct RDW [place] % (Auto) Lymph # Seg Neutrophils % Seg Neutrophils # APTT POC ABG pH POC ABG pO2 Sodium Potassium 5.1 H Chloride 112.2 H Carbon Dioxide 13 L BUN 44 H Creatinine 2.3 H Glucose 182 H POC Glucose 237 H 247 H Hemoglobin A1c Lactic Acid Phosphorus Magnesium 2.60 H AST 45 H Alkaline Phosphatase 164 H Troponin T Total Protein Albumin 3.5 L HDL Cholesterol Urine WBC (Auto) Urine Creatinine 06/06/19 06/06/19 06/06/19 10:48 13:19 17:34 WBC RBC Hgb Hct RDW [place] % (Auto) Lymph # Seg Neutrophils % Seg Neutrophils # APTT POC ABG pH POC ABG pO2 Sodium Potassium Chloride Carbon Dioxide BUN Creatinine Glucose POC Glucose 167 H 108 H < 40 L Hemoglobin A1c Lactic Acid Phosphorus Magnesium AST Alkaline Phosphatase Troponin T Total Protein Albumin HDL Cholesterol Urine WBC (Auto) Urine Creatinine 06/06/19 06/06/19 06/06/19 17:37 18:10 20:50 WBC RBC Hgb Hct RDW [place] % (Auto) Lymph # Seg Neutrophils % Seg Neutrophils # APTT POC ABG pH POC ABG pO2 Sodium Potassium Chloride Carbon Dioxide BUN Creatinine Glucose 71 L POC Glucose 227 H Hemoglobin A1c Lactic Acid Phosphorus Magnesium AST Alkaline Phosphatase Troponin T Total Protein Albumin HDL Cholesterol Urine WBC (Auto) Urine Creatinine 102.7 H 06/07/19 06/07/19 06/07/19 02:36 05:40 07:59 WBC RBC Hgb Hct RDW [place] % (Auto) Lymph # Seg Neutrophils % Seg Neutrophils # APTT POC ABG pH POC ABG pO2 Sodium Potassium Chloride Carbon Dioxide BUN Creatinine Glucose POC Glucose 144 H 183 H 207 H Hemoglobin A1c Lactic Acid Phosphorus Magnesium AST Alkaline Phosphatase Troponin T Total Protein Albumin HDL Cholesterol Urine WBC (Auto) Urine Creatinine 06/07/19 06/07/19 06/07/19 11:40 14:35 15:12 WBC RBC Hgb Hct RDW [place] % (Auto) Lymph # Seg Neutrophils % Seg Neutrophils # APTT POC ABG pH POC ABG pO2 Sodium Potassium Chloride Carbon Dioxide BUN 40 H Creatinine 2.2 H Glucose 154 H POC Glucose 160 H 164 H Hemoglobin A1c Lactic Acid Phosphorus Magnesium AST Alkaline Phosphatase Troponin T Total Protein Albumin HDL Cholesterol Urine WBC (Auto) Urine Creatinine 06/07/19 06/07/19 06/08/19 16:35 21:43 02:00 WBC RBC Hgb Hct RDW [place] % (Auto) Lymph # Seg Neutrophils % Seg Neutrophils # APTT POC ABG pH POC ABG pO2 Sodium Potassium Chloride Carbon Dioxide BUN Creatinine Glucose POC Glucose 181 H 62 L 126 H Hemoglobin A1c Lactic Acid Phosphorus Magnesium AST Alkaline Phosphatase Troponin T Total Protein Albumin HDL Cholesterol Urine WBC (Auto) Urine Creatinine 06/08/19 06/08/19 06/08/19 05:46 05:55 05:55 WBC 3.1 L RBC Hgb 10.8 L Hct 31.6 L D RDW 16.8 H [place] % (Auto) 14.3 H Lymph # 0.9 L Seg Neutrophils % Seg Neutrophils # 1.6 L APTT POC ABG pH POC ABG pO2 Sodium Potassium Chloride Carbon Dioxide 21 L BUN 38 H Creatinine 2.2 H Glucose 167 H POC Glucose 147 H Hemoglobin A1c Lactic Acid Phosphorus Magnesium AST Alkaline Phosphatase 130 H Troponin T Total Protein 6.2 L Albumin 3.0 L HDL Cholesterol Urine WBC (Auto) Urine Creatinine 06/08/19 06/08/19 06/08/19 07:48 17:49 21:47 WBC RBC Hgb Hct RDW [place] % (Auto) Lymph # Seg Neutrophils % Seg Neutrophils # APTT POC ABG pH POC ABG pO2 Sodium Potassium Chloride Carbon Dioxide BUN Creatinine Glucose POC Glucose 179 H 127 H 161 H Hemoglobin A1c Lactic Acid Phosphorus Magnesium AST Alkaline Phosphatase Troponin T Total Protein Albumin HDL Cholesterol Urine WBC (Auto) Urine Creatinine 06/08/19 06/09/19 06/09/19 22:14 03:12 04:34 WBC RBC Hgb Hct RDW [place] % (Auto) Lymph # Seg Neutrophils % Seg Neutrophils # APTT POC ABG pH POC ABG pO2 Sodium Potassium Chloride Carbon Dioxide BUN Creatinine Glucose POC Glucose 59 L 163 H Hemoglobin A1c 10.8 H Lactic Acid Phosphorus Magnesium AST Alkaline Phosphatase Troponin T Total Protein Albumin HDL Cholesterol Urine WBC (Auto) Urine Creatinine 06/09/19 06/09/19 06/09/19 05:02 07:39 08:34 WBC 3.1 L RBC Hgb 10.6 L Hct 31.7 L RDW 17.0 H [place] % (Auto) 13.8 H Lymph # 1.0 L Seg Neutrophils % Seg Neutrophils # 1.5 L APTT POC ABG pH POC ABG pO2 Sodium Potassium Chloride Carbon Dioxide BUN 37 H Creatinine 2.0 H Glucose 176 H POC Glucose 206 H Hemoglobin A1c Lactic Acid Phosphorus Magnesium AST Alkaline Phosphatase Troponin T Total Protein 5.8 L Albumin 2.8 L HDL Cholesterol Urine WBC (Auto) Urine Creatinine 06/09/19 06/09/19 06/10/19 17:55 21:36 05:20 WBC RBC Hgb Hct RDW [place] % (Auto) Lymph # Seg Neutrophils % Seg Neutrophils # APTT POC ABG pH POC ABG pO2 Sodium Potassium 3.3 L Chloride Carbon Dioxide BUN 34 H Creatinine 2.0 H Glucose 212 H POC Glucose 265 H 132 H Hemoglobin A1c Lactic Acid Phosphorus Magnesium AST Alkaline Phosphatase Troponin T Total Protein Albumin HDL Cholesterol Urine WBC (Auto) Urine Creatinine 06/10/19 06/10/19 06/10/19 05:20 07:00 11:48 WBC 4.4 L RBC 3.47 L Hgb 10.0 L Hct 29.6 L RDW 16.9 H [place] % (Auto) Lymph # Seg Neutrophils % Seg Neutrophils # APTT POC ABG pH POC ABG pO2 Sodium Potassium Chloride Carbon Dioxide BUN Creatinine Glucose POC Glucose 249 H 279 H Hemoglobin A1c Lactic Acid Phosphorus Magnesium AST Alkaline Phosphatase Troponin T Total Protein Albumin HDL Cholesterol Urine WBC (Auto) Urine Creatinine 06/10/19 06/10/19 06/10/19 18:25 21:50 23:22 WBC RBC Hgb Hct RDW [place] % (Auto) Lymph # Seg Neutrophils % Seg Neutrophils # APTT POC ABG pH POC ABG pO2 Sodium Potassium Chloride Carbon Dioxide BUN Creatinine Glucose POC Glucose 157 H 58 L 124 H Hemoglobin A1c Lactic Acid Phosphorus Magnesium AST Alkaline Phosphatase Troponin T Total Protein Albumin HDL Cholesterol Urine WBC (Auto) Urine Creatinine 06/11/19 06/11/19 06/11/19 05:15 06:48 11:52 WBC RBC Hgb Hct RDW [place] % (Auto) Lymph # Seg Neutrophils % Seg Neutrophils # APTT POC ABG pH POC ABG pO2 Sodium Potassium 3.4 L Chloride 108.1 H Carbon Dioxide BUN 30 H Creatinine 2.0 H Glucose 358 H POC Glucose 441 H 339 H Hemoglobin A1c Lactic Acid Phosphorus Magnesium AST Alkaline Phosphatase Troponin T Total Protein Albumin HDL Cholesterol Urine WBC (Auto) Urine Creatinine 06/11/19 06/11/19 06/12/19 17:41 23:52 05:38 WBC RBC Hgb Hct RDW [place] % (Auto) Lymph # Seg Neutrophils % Seg Neutrophils # APTT POC ABG pH POC ABG pO2 Sodium Potassium Chloride 115.2 H Carbon Dioxide 18 L BUN 32 H Creatinine 2.0 H Glucose 164 H POC Glucose 311 H 119 H Hemoglobin A1c Lactic Acid Phosphorus 1.30 L Magnesium AST Alkaline Phosphatase Troponin T Total Protein Albumin HDL Cholesterol Urine WBC (Auto) Urine Creatinine 06/12/19 06/12/19 06/12/19 06:41 10:34 11:49 WBC RBC Hgb Hct RDW [place] % (Auto) Lymph # Seg Neutrophils % Seg Neutrophils # APTT POC ABG pH POC ABG pO2 Sodium Potassium Chloride Carbon Dioxide BUN Creatinine Glucose POC Glucose 178 H 198 H 200 H Hemoglobin A1c Lactic Acid Phosphorus Magnesium AST Alkaline Phosphatase Troponin T Total Protein Albumin HDL Cholesterol Urine WBC (Auto) Urine Creatinine 06/12/19 13:30 WBC RBC Hgb Hct RDW [place] % (Auto) Lymph # Seg Neutrophils % Seg Neutrophils # APTT POC ABG pH 7.235 L POC ABG pO2 200 H Sodium Potassium Chloride Carbon Dioxide BUN Creatinine Glucose POC Glucose Hemoglobin A1c Lactic Acid Phosphorus Magnesium AST Alkaline Phosphatase Troponin T Total Protein Albumin HDL Cholesterol Urine WBC (Auto) Urine Creatinine - Diagnostic Findings Chest x-ray: image reviewed (Unremarkable, no acute pulmonary infiltrates) Assessment and Plan Acute hypoxemic respiratory failure on supplemental oxygen Sepsis,present on admission due to UTI Acute metabolic encephalopathy Acute renal failure Severe protein calorie malnutrition Sinus Bradycardia Thrombocytopenia Cardiomyopathy EF 25% Metabolic acidosis, probably secondary to sepsis and renal failure -Wean supplemental oxygen to keep O2 sats>90% -Aspiration precautions -Enteric nutrition,evaluate for PEG placement to optimize nutrition -Antibiotics per ID -On heparin for VTE prophylaxis, monitor platelet counts. -Monitor for bleeding -Mobility to prevent pressure ulcers -Cardio-protective measures -Avoid nephrotoxins, adjust all medications for GFR, CrcL -Bronchodilators per protocol Thank you for this consult. Discussed with RT/RN Discussed with hospitalist service Will follow CONDITION: POOR PROGNOSIS: GUARDED CODE STATUS: FULL CODE
[2019-06-12] MEDS: REMERON PO SCH (22:20)
[2019-06-13 06:01] LABS: Hemoglobin 10.1 gm/dl (11.8-15.2); Mean Corpuscular HGB Conc 34 % (32-34); Mean Corpuscular Volume 86 fl (84-94); Red Blood Count 3.48 M/mm3 (3.65-5.03); Red Cell Distribution Width 18.3 % (13.2-15.2)
[2019-06-13 06:21] LABS: Calcium 8.7 mg/dL (8.4-10.2)
[2019-06-13 06:54] LABS: Platelet Count 129 K/mm3 (140-440)
--- NOTE | 2019-06-13 11:43 | Progress Note ---
Assessment and Plan The pt is a 68 YO male with a past medical history of CMP, HTN, CKD, dementia. He has been seen by our practice on prior hospitalization. Pt is lethargic on evaluation and thus HPI is obtained per the chart. He presented on 06/05 for evaluation of altered mental status. He was subsequently diagnosed with acute encephalopathy, UTI due to ESBL klebsiella pneumonia, PAPITO on CKD. He was noted to be bradycardic last echocardiogram showed ejection fraction of about 25%. Patient is also known to have dementia. No significant change in the cardiac status at this time. Continue current management. Overall prognosis is guarded because of multiple issues. - Patient Problems (1) Metabolic encephalopathy Current Visit: Yes Status: Acute (2) Sinus bradycardia Current Visit: Yes Status: Acute (3) UTI (urinary tract infection) Current Visit: Yes Status: Acute Qualifiers: Encounter type: initial encounter (4) Cardiomyopathy Current Visit: Yes Status: Chronic (5) Hypertension Current Visit: Yes Status: Chronic Qualifiers: Hypertension type: essential hypertension Qualified Code(s): I10 - Essent ial (primary) hypertension (6) PAPITO (acute kidney injury) Current Visit: No Status: Acute Subjective Date of service: 06/13/19 Principal diagnosis: Severe malnutrition Interval history: Patient is lethargic and noncommunicative. According to the patient did not have any further cardiac issues. Objective Vital Signs Temp Pulse Resp BP Pulse Ox 06/13/19 08:26 43 L 20 98/50 97 06/13/19 07:10 94 06/13/19 02:46 43 L 18 105/60 99 06/12/19 21:34 57 L 99 06/12/19 21:31 119/64 06/12/19 19:51 98.9 F 43 L 18 84/51 100 06/12/19 13:06 97.9 F 43 L 20 127/70 100 - Physical Examination General: Other (appears to be chronicallyNoncommunicative.) HEENT: Positive: PERRL Neck: Positive: neck supple, trachea midline Cardiac: Positive: Bradycardia (rhythm is noted to be regular but the heart rate appears to be slow rate) Lungs: Positive: Decreased Breath Sounds (decreased breath sounds are noted in both bases.) Neuro: Positive: Other (lethargic, withdrawn) Abdomen: Positive: Soft Skin: Negative: Rash Musculoskeletal: No Pain Extremities: Present: Other (patient has a dressing on the leg.). Absent: edema - Labs and Meds CBC 06/13/19 Range/Units 04:51 WBC 5.2 (4.5-11.0) K/mm3 RBC 3.48 L (3.65-5.03) M/mm3 Hgb 10.1 L (11.8-15.2) gm/dl Hct 30.0 L (35.5-45.6) % Plt Count 129 L (140-440) K/mm3 Comprehensive Metabolic Panel 06/13/19 Range/Units 04:51 Sodium 139 (137-145) mmol/L Potassium 5.0 D (3.6-5.0) mmol/L Chloride 112.4 H (98-107) mmol/L Carbon Dioxide 17 L (22-30) mmol/L BUN 36 H (9-20) mg/dL Creatinine 2.0 H (0.8-1.5) mg/dL Glucose 329 H (75-100) mg/dL Calcium 8.7 (8.4-10.2) mg/dL - Imaging and Cardiology EKG: report reviewed, image reviewed Echo: report reviewed ( 05/19/2019 showed EF 25-30%, pericardium thickened and calcified, LV mild to mod dilated, mild to mod LVH, LA mildly dilated, trace MR, trace TR. ) - EKG Sinus rhythms and dysrhythmias: sinus bradycardia
[2019-06-13] MEDS: QUESTRAN PO SCH ×3 (12:22→22:01)
[2019-06-13] MEDS: HEPARIN SUB-Q SCH ×2 (12:22→22:02)
[2019-06-13] MEDS: PROSCAR PO SCH (12:22)
[2019-06-13] MEDS: FLOMAX PO SCH (12:23)
[2019-06-13] MEDS: PEPCID PO SCH (12:23)
[2019-06-13] MEDS: BABY ASPIRIN PO SCH (12:23)
[2019-06-13] MEDS: ALLBEE WITH C PO SCH (12:24)
[2019-06-13] MEDS: FERGON PO SCH ×2 (12:24→22:02)
[2019-06-13] MEDS: SODIUM CHLORIDE FLUSH SYRINGE 10 ML IV SCH ×4 (12:25→22:04)
[2019-06-13] MEDS: HumaLOG SUB-Q SCH ×2 (13:02→22:03)
[2019-06-13] MEDS: SODIUM CHLORIDE FLUSH SYRINGE 10 ML IV PRN (13:04)
--- NOTE | 2019-06-13 13:45 | Progress Note ---
Assessment and Plan 1. Acute kidney injury: Vasomotor PAPITO superimposed on CKD stage 3 in the setting of volume depletion. Renal US was negative for hydro. Renal function is stable. Monitor renal function. Avoid nephrotoxic agents. Meds dosage based on GFR. 2. FEN: Hypokalemia, K level is better. Hypernatremia, improved. Metabolic acidosis, monitor. Monitor lytes. 3. UTI: On Levofloxacin. 4. Metabolic Encephalopathy. 5. Anemia: POA. 6. Dysphagia: S/p PEG tube. 7. Adult failure to thrive. Subjective Date of service: 06/13/19 Principal diagnosis: Severe malnutrition Interval history: Patient was seen and examined at the bedside. Objective - Vital Signs Vital signs: Vital Signs - 12hr 06/13/19 06/13/19 06/13/19 02:46 07:10 08:26 Pulse Rate 43 L 43 L Respiratory 18 20 Rate Blood Pressure 105/60 98/50 O2 Sat by Pulse 99 94 97 Oximetry - General Appearance General appearance: well-developed, appears stated age, other (on restrains) EENT: ATNC, PERRL Neck: other (Traches midline) Respiratory: Present: Clear to Ascultation Cardiology: regular, S1S2, no murmurs Gastrointestinal: normoactive bowel sounds, no tenderness, no distended, other (PEG tube noted) Neurologic: other (stuporous) Musculoskeletal: other (no edema) - Lab 06/13/19 04:51 06/13/19 04:51 Most recent lab results Calcium 8.7 mg/dL (8.4-10.2) 06/13/19 04:51 Phosphorus 1.30 mg/dL (2.5-4.5) L 06/12/19 05:38 Magnesium 2.10 mg/dL (1.7-2.3) 06/11/19 08:56 102.7 mg/dL (0.1-20.0) H 06/06/19 17:37 47 mmol/L 06/06/19 17:37 Medications & Allergies - Medications Allergies/Adverse Reactions: Allergies No Known Allergies Allergy (Verified 05/19/19 22:08) Home Medications: Home Medications Medication Instructions Recorded Confirmed Last Taken Type Cholestyramine/Aspartame 239.4 mg PO TID 05/20/19 06/05/19 Unknown History [Cholestyramine Light Powder] Famotidine [Pepcid] 20 mg PO BID 05/20/19 06/05/19 Unknown History Ferrous Gluconate [Fergon 240 MG 240 mg PO BID 05/20/19 06/05/19 Unknown History tab] Finasteride [Proscar] 5 mg PO DAILY 05/20/19 06/05/19 Unknown History Mirtazapine [Remeron 15mg TAB] 15 mg PO QHS 05/20/19 06/05/19 Unknown History Tamsulosin [Flomax] 0.4 mg PO QDAY 05/20/19 06/05/19 Unknown History Vitamin B Complex [B Complex] 1 each PO DAILY 05/20/19 06/05/19 Unknown History Aspirin EC 81 mg PO QDAY tablet 05/22/19 06/05/19 Unknown Rx Insulin Regular, Human [HumuLIN R] 0 units SUB-Q ACHS units 05/22/19 06/05/19 Unknown Rx Megestrol [Megace] 400 mg PO QDAY oral.liqd 05/22/19 06/05/19 Unknown Rx Insulin NPH/Regular [NovoLIN 70/30] 10 unit SQ BIDDIAB #1 vial 05/27/19 06/05/19 Unknown Rx Metoprolol [Lopressor TAB] 12.5 mg PO BID #60 tablet 05/27/19 06/05/19 Unknown Rx amLODIPine [Norvasc] 10 mg PO QDAY #60 tablet 05/27/19 06/05/19 Unknown Rx Active Medications: Generic Name Dose Route Start Last Admin Trade Name Freq PRN Reason Stop Dose Admin Acetaminophen 650 mg 06/08/19 14:58 Tylenol PO Q4H PRN Pain MILD(1-3)/Fever >100.5/POLANCO Albuterol 2.5 mg 06/05/19 14:00 Proventil IH Q4HRT PRN Shortness Of Breath Lipase/Protease/Amylase 1 each 06/09/19 16:01 Marcia Freed 10,500 Unit FEEDTUBE PRN PRN For Clogged Feeding Tube Aspirin 81 mg 06/12/19 10:00 06/13/19 12:23 Baby Aspirin PO 81 mg QDAY ELIZABETH Administration Cholestyramine Resin 4 gm 06/05/19 20:00 06/13/19 13:35 Questran PO 4 gm TID ELIZABETH Administration Dextrose 50 ml 06/05/19 14:03 06/10/19 22:14 D50w (25gm) Syringe IV 50 ml PRN PRN Administration Hypoglycemia Famotidine 20 mg 06/05/19 22:00 06/13/19 12:23 Pepcid PO 20 mg DAILY ELIZABETH Administration Ferrous Gluconate 324 mg 06/05/19 22:00 06/13/19 12:24 Fergon PO 324 mg BID ELIZABETH Administration Finasteride 5 mg 06/06/19 10:00 06/13/19 12:22 Proscar PO 5 mg DAILY ELIZABETH Administration Heparin Sodium (Porcine) 5,000 unit 06/12/19 10:00 06/13/19 12:22 Heparin SUB-Q 5,000 unit Q12HR ELIZABETH Administration Hydralazine HCl 10 mg 06/07/19 14:00 06/07/19 13:42 Apresoline IV 10 mg Q3HR PRN Administration Elevated BP Hydromorphone HCl 0.5 mg 06/08/19 14:58 Dilaudid IV Q3H PRN Pain , Severe (7-10) Insulin Human Lispro 0 unit 06/05/19 16:30 06/13/19 13:02 Humalog SUB-Q 4 unit ACHS ELIZABETH Administration Protocol Levofloxacin 750 mg 06/12/19 14:00 06/12/19 14:50 Levaquin PO 750 mg Q48H ELIZABETH Administration Mirtazapine 15 mg 06/05/19 22:00 06/12/19 22:20 Remeron PO Not Given QHS [facility] Ondansetron HCl 4 mg 06/08/19 14:58 Zofran IV Q8H PRN Nausea And Vomiting Oxycodone/Acetaminophen 1 tab 06/08/19 14:58 Percocet 5/325 PO Q6H PRN Pain, Moderate (4-6) Simple Syrup 15 ml 06/09/19 16:01 Simple Syrup FEEDTUBE PRN PRN Hypoglycemia Simple Syrup 30 ml 06/09/19 16:01 Simple Syrup FEEDTUBE PRN PRN Hypoglycemia Sodium Bicarbonate 325 mg 06/09/19 16:01 Sodium Bicarbonate FEEDTUBE PRN PRN For Clogged Feeding Tube Sodium Chloride 10 ml 06/05/19 22:00 06/13/19 12:25 Sodium Chloride Flush Syringe 10 Ml IV 10 ml BID ELIZABETH Administration Sodium Chloride 10 ml 06/05/19 14:00 06/13/19 13:04 Sodium Chloride Flush Syringe 10 Ml IV 10 ml PRN PRN Administration LINE FLUSH Sodium Chloride 10 ml 06/08/19 22:00 06/13/19 13:35 Sodium Chloride Flush Syringe 10 Ml IV Not Given BID ELIZABETH Sodium Chloride 10 ml 06/08/19 14:58 Sodium Chloride Flush Syringe 10 Ml IV PRN PRN LINE FLUSH Tamsulosin HCl 0.4 mg 06/06/19 10:00 06/13/19 12:23 Flomax PO 0.4 mg QDAY ELIZABETH Administration Vitamin B Complex/Vitamin C 1 each 06/06/19 10:00 06/13/19 12:24 Allbee With C PO 1 each QDAY ELIZABETH Administration
--- NOTE | 2019-06-13 14:45 | Progress Note ---
Assessment and Plan Patient weak, emaciated, contracted. Developed increased shortness of breath. Blood gases Obtained POC ABG pH 7.184 (7.35-7.45) L 06/13/19 14:34 POC ABG pCO2 35.8 (35-45) 06/13/19 14:34 POC ABG pO2 83 (80-105) 06/13/19 14:34 POC ABG HCO3 13.5 (22-26 mml/L) 06/13/19 14:34 POC ABG Total CO2 15 (23-27mmol/L) 06/13/19 14:34 POC ABG O2 Sat 93 06/13/19 14:34 Patient has severe metabolic acidosis. Supplementing HCO3. Placing him on BICARB and transfering him ICU. Giving one ampule of BIcarb I/V. Placing him on BIPAP 18/5, Rate 25, FIO2 30%. Repeating blood gases. Giving Fluid bolus. Chest xray reported no acute process. I spent direct critical care time of 50 minutes, reviewing the history and examine the patient, review labs, chest xray, talining to nursing staff and respiratory therapy and work out plan of treatment. - Patient Problems (1) Acidosis Current Visit: Yes Status: Acute Plan to address problem: Supplementing I/V Bicarb (2) Acute on chronic renal insufficiency Current Visit: Yes Status: Acute Plan to address problem: Management as per nephrology. (3) Dehydration Current Visit: Yes Status: Acute Plan to address problem: Receiving Fluid Bolus NSS. (4) Encephalopathy acute Current Visit: Yes Status: Acute Plan to address problem: Management as per primary care. (5) Dyspnea Current Visit: Yes Status: Acute Plan to address problem: Likely from severe metabolic acidosis. Patient placed on BIPAP. Subjective Date of service: 06/13/19 Principal diagnosis: Severe malnutrition Interval history: Patient weak, emaciated, contracted. Developed increased shortness of breath. Blood gases Obtained POC ABG pH 7.184 (7.35-7.45) L 06/13/19 14:34 POC ABG pCO2 35.8 (35-45) 06/13/19 14:34 POC ABG pO2 83 (80-105) 06/13/19 14:34 POC ABG HCO3 13.5 (22-26 mml/L) 06/13/19 14:34 POC ABG Total CO2 15 (23-27mmol/L) 06/13/19 14:34 POC ABG O2 Sat 93 06/13/19 14:34 Patient has severe metabolic acidosis. Supplementing HCO3. Placing him on BICARB and transfering him ICU. Giving one ampule of BIcarb I/V. Placing him on BIPAP 18/5, Rate 25, FIO2 30%. Repeating blood gases. Giving Fluid bolus. Chest xray reported no acute process. Objective Vital Signs - 12hr 06/13/19 06/13/19 06/13/19 02:46 07:10 08:26 Temperature Pulse Rate 43 L 43 L Respiratory 18 20 Rate Blood Pressure 105/60 98/50 Blood Pressure [Right] O2 Sat by Pulse 99 94 97 Oximetry 06/13/19 06/13/19 13:31 14:22 Temperature 97.8 F Pulse Rate 44 L Respiratory 20 Rate Blood Pressure 87/34 Blood Pressure 109/46 [Right] O2 Sat by Pulse 96 94 Oximetry Constitutional: lethargic, appears uncomfortable, other (Weak, emaciated and contracted.) Eyes: non-icteric ENT: oropharynx moist Neck: supple, no lymphadenopathy Effort: mildly labored Ascultation: Bilateral: diminished breath sounds Cardiovascular: regular rate and rhythm Gastrointestinal: normoactive bowel sounds, soft Integumentary: decubitus ulcer Extremities: no cyanosis, no edema Neurologic: unable to assess Psychiatric: other (Unable to assess.) CBC and BMP: 06/13/19 04:51 06/13/19 04:51 ABG, PT/INR, D-dimer: ABG POC ABG pH 7.184 (7.35-7.45) L 06/13/19 14:34 POC ABG pCO2 35.8 (35-45) 06/13/19 14:34 POC ABG pO2 83 (80-105) 06/13/19 14:34 POC ABG HCO3 13.5 (22-26 mml/L) 06/13/19 14:34 POC ABG Total CO2 15 (23-27mmol/L) 06/13/19 14:34 POC ABG O2 Sat 93 06/13/19 14:34 Abnormal lab findings: Abnormal Labs 06/05/19 06/05/19 06/05/19 10:24 11:11 11:11 WBC RBC Hgb 11.2 L Hct 33.2 L RDW 17.3 H Plt Count [place] % (Auto) Lymph # 0.9 L Seg Neutrophils % 76.0 H Seg Neutrophils # APTT 37.7 H POC ABG pH POC ABG pO2 Sodium Potassium Chloride Carbon Dioxide BUN Creatinine Glucose POC Glucose 125 H Hemoglobin A1c Lactic Acid Phosphorus Magnesium AST Alkaline Phosphatase Troponin T Total Protein Albumin HDL Cholesterol Urine WBC (Auto) Urine Creatinine 06/05/19 06/05/19 06/05/19 11:11 11:11 11:36 WBC RBC Hgb Hct RDW Plt Count [place] % (Auto) Lymph # Seg Neutrophils % Seg Neutrophils # APTT POC ABG pH POC ABG pO2 Sodium 147 H Potassium Chloride 115.9 H Carbon Dioxide 18 L BUN 45 H Creatinine 2.4 H Glucose 118 H POC Glucose 109 H Hemoglobin A1c Lactic Acid 0.50 L Phosphorus Magnesium AST Alkaline Phosphatase 147 H Troponin T 0.047 H Total Protein Albumin 3.5 L HDL Cholesterol 115 H Urine WBC (Auto) Urine Creatinine 06/05/19 06/05/19 06/05/19 13:21 14:03 16:16 WBC RBC Hgb Hct RDW Plt Count [place] % (Auto) Lymph # Seg Neutrophils % Seg Neutrophils # APTT POC ABG pH POC ABG pO2 Sodium Potassium Chloride Carbon Dioxide BUN Creatinine Glucose POC Glucose 56 L Hemoglobin A1c Lactic Acid 0.50 L Phosphorus Magnesium AST Alkaline Phosphatase Troponin T Total Protein Albumin HDL Cholesterol Urine WBC (Auto) 14.0 H Urine Creatinine 06/05/19 06/05/19 06/05/19 18:52 19:38 20:07 WBC RBC Hgb Hct RDW Plt Count [place] % (Auto) Lymph # Seg Neutrophils % Seg Neutrophils # APTT POC ABG pH POC ABG pO2 Sodium Potassium Chloride Carbon Dioxide BUN Creatinine Glucose 128 H POC Glucose < 40 L 140 H Hemoglobin A1c Lactic Acid Phosphorus Magnesium AST Alkaline Phosphatase Troponin T Total Protein Albumin HDL Cholesterol Urine WBC (Auto) Urine Creatinine 06/05/19 06/06/19 06/06/19 21:46 02:06 04:22 WBC RBC Hgb Hct RDW 18.1 H Plt Count [place] % (Auto) Lymph # Seg Neutrophils % 71.8 H Seg Neutrophils # APTT POC ABG pH POC ABG pO2 Sodium Potassium Chloride Carbon Dioxide BUN Creatinine Glucose POC Glucose 141 H 213 H Hemoglobin A1c Lactic Acid Phosphorus Magnesium AST Alkaline Phosphatase Troponin T Total Protein Albumin HDL Cholesterol Urine WBC (Auto) Urine Creatinine 06/06/19 06/06/19 06/06/19 04:22 05:20 07:42 WBC RBC Hgb Hct RDW Plt Count [place] % (Auto) Lymph # Seg Neutrophils % Seg Neutrophils # APTT POC ABG pH POC ABG pO2 Sodium Potassium 5.1 H Chloride 112.2 H Carbon Dioxide 13 L BUN 44 H Creatinine 2.3 H Glucose 182 H POC Glucose 237 H 247 H Hemoglobin A1c Lactic Acid Phosphorus Magnesium 2.60 H AST 45 H Alkaline Phosphatase 164 H Troponin T Total Protein Albumin 3.5 L HDL Cholesterol Urine WBC (Auto) Urine Creatinine 06/06/19 06/06/19 06/06/19 10:48 13:19 17:34 WBC RBC Hgb Hct RDW Plt Count [place] % (Auto) Lymph # Seg Neutrophils % Seg Neutrophils # APTT POC ABG pH POC ABG pO2 Sodium Potassium Chloride Carbon Dioxide BUN Creatinine Glucose POC Glucose 167 H 108 H < 40 L Hemoglobin A1c Lactic Acid Phosphorus Magnesium AST Alkaline Phosphatase Troponin T Total Protein Albumin HDL Cholesterol Urine WBC (Auto) Urine Creatinine 06/06/19 06/06/19 06/06/19 17:37 18:10 20:50 WBC RBC Hgb Hct RDW Plt Count [place] % (Auto) Lymph # Seg Neutrophils % Seg Neutrophils # APTT POC ABG pH POC ABG pO2 Sodium Potassium Chloride Carbon Dioxide BUN Creatinine Glucose 71 L POC Glucose 227 H Hemoglobin A1c Lactic Acid Phosphorus Magnesium AST Alkaline Phosphatase Troponin T Total Protein Albumin HDL Cholesterol Urine WBC (Auto) Urine Creatinine 102.7 H 06/07/19 06/07/19 06/07/19 02:36 05:40 07:59 WBC RBC Hgb Hct RDW Plt Count [place] % (Auto) Lymph # Seg Neutrophils % Seg Neutrophils # APTT POC ABG pH POC ABG pO2 Sodium Potassium Chloride Carbon Dioxide BUN Creatinine Glucose POC Glucose 144 H 183 H 207 H Hemoglobin A1c Lactic Acid Phosphorus Magnesium AST Alkaline Phosphatase Troponin T Total Protein Albumin HDL Cholesterol Urine WBC (Auto) Urine Creatinine 06/07/19 06/07/19 06/07/19 11:40 14:35 15:12 WBC RBC Hgb Hct RDW Plt Count [place] % (Auto) Lymph # Seg Neutrophils % Seg Neutrophils # APTT POC ABG pH POC ABG pO2 Sodium Potassium Chloride Carbon Dioxide BUN 40 H Creatinine 2.2 H Glucose 154 H POC Glucose 160 H 164 H Hemoglobin A1c Lactic Acid Phosphorus Magnesium AST Alkaline Phosphatase Troponin T Total Protein Albumin HDL Cholesterol Urine WBC (Auto) Urine Creatinine 06/07/19 06/07/19 06/08/19 16:35 21:43 02:00 WBC RBC Hgb Hct RDW Plt Count [place] % (Auto) Lymph # Seg Neutrophils % Seg Neutrophils # APTT POC ABG pH POC ABG pO2 Sodium Potassium Chloride Carbon Dioxide BUN Creatinine Glucose POC Glucose 181 H 62 L 126 H Hemoglobin A1c Lactic Acid Phosphorus Magnesium AST Alkaline Phosphatase Troponin T Total Protein Albumin HDL Cholesterol Urine WBC (Auto) Urine Creatinine 06/08/19 06/08/19 06/08/19 05:46 05:55 05:55 WBC 3.1 L RBC Hgb 10.8 L Hct 31.6 L D RDW 16.8 H Plt Count [place] % (Auto) 14.3 H Lymph # 0.9 L Seg Neutrophils % Seg Neutrophils # 1.6 L APTT POC ABG pH POC ABG pO2 Sodium Potassium Chloride Carbon Dioxide 21 L BUN 38 H Creatinine 2.2 H Glucose 167 H POC Glucose 147 H Hemoglobin A1c Lactic Acid Phosphorus Magnesium AST Alkaline Phosphatase 130 H Troponin T Total Protein 6.2 L Albumin 3.0 L HDL Cholesterol Urine WBC (Auto) Urine Creatinine 06/08/19 06/08/19 06/08/19 07:48 17:49 21:47 WBC RBC Hgb Hct RDW Plt Count [place] % (Auto) Lymph # Seg Neutrophils % Seg Neutrophils # APTT POC ABG pH POC ABG pO2 Sodium Potassium Chloride Carbon Dioxide BUN Creatinine Glucose POC Glucose 179 H 127 H 161 H Hemoglobin A1c Lactic Acid Phosphorus Magnesium AST Alkaline Phosphatase Troponin T Total Protein Albumin HDL Cholesterol Urine WBC (Auto) Urine Creatinine 06/08/19 06/09/19 06/09/19 22:14 03:12 04:34 WBC RBC Hgb Hct RDW Plt Count [place] % (Auto) Lymph # Seg Neutrophils % Seg Neutrophils # APTT POC ABG pH POC ABG pO2 Sodium Potassium Chloride Carbon Dioxide BUN Creatinine Glucose POC Glucose 59 L 163 H Hemoglobin A1c 10.8 H Lactic Acid Phosphorus Magnesium AST Alkaline Phosphatase Troponin T Total Protein Albumin HDL Cholesterol Urine WBC (Auto) Urine Creatinine 06/09/19 06/09/19 06/09/19 05:02 07:39 08:34 WBC 3.1 L RBC Hgb 10.6 L Hct 31.7 L RDW 17.0 H Plt Count [place] % (Auto) 13.8 H Lymph # 1.0 L Seg Neutrophils % Seg Neutrophils # 1.5 L APTT POC ABG pH POC ABG pO2 Sodium Potassium Chloride Carbon Dioxide BUN 37 H Creatinine 2.0 H Glucose 176 H POC Glucose 206 H Hemoglobin A1c Lactic Acid Phosphorus Magnesium AST Alkaline Phosphatase Troponin T Total Protein 5.8 L Albumin 2.8 L HDL Cholesterol Urine WBC (Auto) Urine Creatinine 06/09/19 06/09/19 06/10/19 17:55 21:36 05:20 WBC RBC Hgb Hct RDW Plt Count [place] % (Auto) Lymph # Seg Neutrophils % Seg Neutrophils # APTT POC ABG pH POC ABG pO2 Sodium Potassium 3.3 L Chloride Carbon Dioxide BUN 34 H Creatinine 2.0 H Glucose 212 H POC Glucose 265 H 132 H Hemoglobin A1c Lactic Acid Phosphorus Magnesium AST Alkaline Phosphatase Troponin T Total Protein Albumin HDL Cholesterol Urine WBC (Auto) Urine Creatinine 06/10/19 06/10/19 06/10/19 05:20 07:00 11:48 WBC 4.4 L RBC 3.47 L Hgb 10.0 L Hct 29.6 L RDW 16.9 H Plt Count [place] % (Auto) Lymph # Seg Neutrophils % Seg Neutrophils # APTT POC ABG pH POC ABG pO2 Sodium Potassium Chloride Carbon Dioxide BUN Creatinine Glucose POC Glucose 249 H 279 H Hemoglobin A1c Lactic Acid Phosphorus Magnesium AST Alkaline Phosphatase Troponin T Total Protein Albumin HDL Cholesterol Urine WBC (Auto) Urine Creatinine 06/10/19 06/10/19 06/10/19 18:25 21:50 23:22 WBC RBC Hgb Hct RDW Plt Count [place] % (Auto) Lymph # Seg Neutrophils % Seg Neutrophils # APTT POC ABG pH POC ABG pO2 Sodium Potassium Chloride Carbon Dioxide BUN Creatinine Glucose POC Glucose 157 H 58 L 124 H Hemoglobin A1c Lactic Acid Phosphorus Magnesium AST Alkaline Phosphatase Troponin T Total Protein Albumin HDL Cholesterol Urine WBC (Auto) Urine Creatinine 06/11/19 06/11/19 06/11/19 05:15 06:48 11:52 WBC RBC Hgb Hct RDW Plt Count [place] % (Auto) Lymph # Seg Neutrophils % Seg Neutrophils # APTT POC ABG pH POC ABG pO2 Sodium Potassium 3.4 L Chloride 108.1 H Carbon Dioxide BUN 30 H Creatinine 2.0 H Glucose 358 H POC Glucose 441 H 339 H Hemoglobin A1c Lactic Acid Phosphorus Magnesium AST Alkaline Phosphatase Troponin T Total Protein Albumin HDL Cholesterol Urine WBC (Auto) Urine Creatinine 06/11/19 06/11/19 06/12/19 17:41 23:52 05:38 WBC RBC Hgb Hct RDW Plt Count [place] % (Auto) Lymph # Seg Neutrophils % Seg Neutrophils # APTT POC ABG pH POC ABG pO2 Sodium Potassium Chloride 115.2 H Carbon Dioxide 18 L BUN 32 H Creatinine 2.0 H Glucose 164 H POC Glucose 311 H 119 H Hemoglobin A1c Lactic Acid Phosphorus 1.30 L Magnesium AST Alkaline Phosphatase Troponin T Total Protein Albumin HDL Cholesterol Urine WBC (Auto) Urine Creatinine 06/12/19 06/12/19 06/12/19 06:41 10:34 11:49 WBC RBC Hgb Hct RDW Plt Count [place] % (Auto) Lymph # Seg Neutrophils % Seg Neutrophils # APTT POC ABG pH POC ABG pO2 Sodium Potassium Chloride Carbon Dioxide BUN Creatinine Glucose POC Glucose 178 H 198 H 200 H Hemoglobin A1c Lactic Acid Phosphorus Magnesium AST Alkaline Phosphatase Troponin T Total Protein Albumin HDL Cholesterol Urine WBC (Auto) Urine Creatinine 06/12/19 06/12/19 06/13/19 13:30 17:19 04:51 WBC RBC 3.48 L Hgb 10.1 L Hct 30.0 L RDW 18.3 H Plt Count 129 L [place] % (Auto) Lymph # Seg Neutrophils % Seg Neutrophils # APTT POC ABG pH 7.235 L POC ABG pO2 200 H Sodium Potassium Chloride Carbon Dioxide BUN Creatinine Glucose POC Glucose 167 H Hemoglobin A1c Lactic Acid Phosphorus Magnesium AST Alkaline Phosphatase Troponin T Total Protein Albumin HDL Cholesterol Urine WBC (Auto) Urine Creatinine 06/13/19 06/13/19 06/13/19 04:51 11:45 14:34 WBC RBC Hgb Hct RDW Plt Count [place] % (Auto) Lymph # Seg Neutrophils % Seg Neutrophils # APTT POC ABG pH 7.184 L POC ABG pO2 Sodium Potassium Chloride 112.4 H Carbon Dioxide 17 L BUN 36 H Creatinine 2.0 H Glucose 329 H POC Glucose 338 H Hemoglobin A1c Lactic Acid Phosphorus Magnesium AST Alkaline Phosphatase Troponin T Total Protein Albumin HDL Cholesterol Urine WBC (Auto) Urine Creatinine Chest x-ray: report reviewed (REPORTED NO ACUTE FINDINGS.), image reviewed
[2019-06-13] MEDS ORDERED: NACL 0.9% 500 ML 500 ML IV ONE (16:15)
--- NOTE | 2019-06-13 16:17 | Progress Note ---
Assessment and Plan Assessment and plan: Acute metabolic encephalopathy Neurochecks Neurology following MRI Brain neg for stroke Acute resp failure On supplemental Oxygen consult Pulmonology Sepsis, present on admission due to UTI On Ertapenem ID Physician following UTI due to ESBL Klebsiella pneumonia ID Physician following Started on Ertapenem Acute kidney injury Cr 2.0 Nephrology following Dementia Monitor Neurochecks Severe malnutrition BMI only 14.7 s/p PEG tube placed Sinus Bradycardia EKG sinus clarissa at 47 Consult Cardiology Full code status Patient to go to [facility] when bed available History Interval history: Altered mental status Still lethargic today bradycardia Hospitalist Physical - Physical exam Narrative exam: Gen: Not in acute distress, lying in bed, HEENT: Normocephalic, atraumatic Neck: supple, no JVD Heart: S1 and S2 reg, no murmurs, rubs or gallop Lungs: Clear to auscultation, no wheeze Abd: soft, non tender, non distended, normal BS, Ext: No edema, no clubbing, no cyanosis Neuro:more lethargic, opens eyes, does not follow commands, moves all ext - Constitutional Vitals: Temp Pulse Resp BP Pulse Ox 97.8 F 42 L 32 H 109/46 96 06/13/19 14:22 06/13/19 15:10 06/13/19 15:10 06/13/19 14:22 06/13/19 15:10 General appearance: Present: other (lethargic, withdrawn) Results - Labs CBC & Chem 7: 06/13/19 04:51 06/13/19 04:51 Labs: Laboratory Last Values WBC 5.2 K/mm3 (4.5-11.0) 06/13/19 04:51 RBC 3.48 M/mm3 (3.65-5.03) L 06/13/19 04:51 Hgb 10.1 gm/dl (11.8-15.2) L 06/13/19 04:51 Hct 30.0 % (35.5-45.6) L 06/13/19 04:51 MCV 86 fl (84-94) 06/13/19 04:51 MCH 29 pg (28-32) 06/13/19 04:51 MCHC 34 % (32-34) 06/13/19 04:51 RDW 18.3 % (13.2-15.2) H 06/13/19 04:51 Plt Count 129 K/mm3 (140-440) L 06/13/19 04:51 Lymph % (Auto) 32.7 % (13.4-35.0) 06/09/19 07:39 [place] % (Auto) 13.8 % (0.0-7.3) H 06/09/19 07:39 Eos % (Auto) 3.9 % (0.0-4.3) 06/09/19 07:39 Baso % (Auto) 0.9 % (0.0-1.8) 06/09/19 07:39 Lymph # 1.0 K/mm3 (1.2-5.4) L 06/09/19 07:39 [place] # 0.4 K/mm3 (0.0-0.8) 06/09/19 07:39 Eos # 0.1 K/mm3 (0.0-0.4) 06/09/19 07:39 Baso # 0.0 K/mm3 (0.0-0.1) 06/09/19 07:39 Seg Neutrophils % 48.7 % (40.0-70.0) 06/09/19 07:39 Seg Neutrophils # 1.5 K/mm3 (1.8-7.7) L 06/09/19 07:39 APTT 37.7 Sec. (24.2-36.6) H 06/05/19 11:11 POC ABG pH 7.184 (7.35-7.45) L 06/13/19 14:34 POC ABG pCO2 35.8 (35-45) 06/13/19 14:34 POC ABG pO2 83 (80-105) 06/13/19 14:34 POC ABG HCO3 13.5 (22-26 mml/L) 06/13/19 14:34 POC ABG Total CO2 15 (23-27mmol/L) 06/13/19 14:34 POC ABG O2 Sat 93 06/13/19 14:34 POC ABG Base Excess -15 ((-2) - (+3)mmol/L) 06/13/19 14:34 2 % 06/13/19 14:34 Sodium 139 mmol/L (137-145) 06/13/19 04:51 Potassium 5.0 mmol/L (3.6-5.0) D 06/13/19 04:51 Chloride 112.4 mmol/L (98-107) H 06/13/19 04:51 Carbon Dioxide 17 mmol/L (22-30) L 06/13/19 04:51 15 mmol/L 06/13/19 04:51 BUN 36 mg/dL (9-20) H 06/13/19 04:51 2.0 mg/dL (0.8-1.5) H 06/13/19 04:51 Estimated GFR 41 ml/min 06/13/19 04:51 18 % 06/13/19 04:51 Glucose 329 mg/dL (75-100) H 06/13/19 04:51 POC Glucose 338 (70-105) H 06/13/19 11:45 10.8 % (4-6) H 06/08/19 22:14 Lactic Acid 0.50 mmol/L (0.7-2.0) L 06/05/19 14:03 Calcium 8.7 mg/dL (8.4-10.2) 06/13/19 04:51 Phosphorus 1.30 mg/dL (2.5-4.5) L 06/12/19 05:38 Magnesium 2.10 mg/dL (1.7-2.3) 06/11/19 08:56 0.30 mg/dL (0.1-1.2) 06/09/19 05:02 AST 28 units/L (5-40) 06/09/19 05:02 ALT 36 units/L (7-56) 06/09/19 05:02 125 units/L (35-129) 06/09/19 05:02 48.0 umol/L (25-60) 06/11/19 17:44 0.047 ng/mL (0.00-0.029) H 06/05/19 11:11 NT-Pro-B Natriuret Pep 446.0 pg/mL (0-900) 06/05/19 11:11 5.8 g/dL (6.3-8.2) L 06/09/19 05:02 2.8 g/dL (3.9-5) L 06/09/19 05:02 0.9 % 06/09/19 05:02 Triglycerides 60 mg/dL (2-149) 06/05/19 11:11 Cholesterol 181 mg/dL (50-199) 06/05/19 11:11 68 mg/dL (50-130) 06/05/19 11:11 115 mg/dL (40-59) H 06/05/19 11:11 1.57 % 06/05/19 11:11 TSH 0.630 mlU/mL (0.270-4.200) 06/05/19 13:26 Free T4 1.04 ng/dL (0.76-1.46) 06/05/19 13:26 Yellow (Yellow) 06/05/19 13:21 Slightly-cloudy (Clear) 06/05/19 13:21 6.0 (5.0-7.0) 06/05/19 13:21 Ur Specific [place] 1.012 (1.003-1.030) 06/05/19 13:21 30 mg/dl mg/dL (Negative) 06/05/19 13:21 Neg mg/dL (Negative) 06/05/19 13:21 Neg mg/dL (Negative) 06/05/19 13:21 Mod (Negative) 06/05/19 13:21 Neg (Negative) 06/05/19 13:21 Neg (Negative) 06/05/19 13:21 < 2.0 mg/dL (<2.0) 06/05/19 13:21 Ur Leukocyte Esterase Mod (Negative) 06/05/19 13:21 14.0 /HPF (0.0-6.0) H 06/05/19 13:21 3.0 /HPF (0.0-6.0) 06/05/19 13:21 2+ /HPF (Negative) 06/05/19 13:21 Few /HPF 06/05/19 13:21 102.7 mg/dL (0.1-20.0) H 06/06/19 17:37 47 mmol/L 06/06/19 17:37 Active Medications - Current Medications Current Medications: Generic Name Dose Route Start Last Admin Trade Name Freq PRN Reason Stop Dose Admin Acetaminophen 650 mg 06/08/19 14:58 Tylenol PO Q4H PRN Pain MILD(1-3)/Fever >100.5/POLANCO Albuterol 2.5 mg 06/05/19 14:00 Proventil IH Q4HRT PRN Shortness Of Breath Lipase/Protease/Amylase 1 each 06/09/19 16:01 Marcia Freed 10,500 Unit FEEDTUBE PRN PRN For Clogged Feeding Tube Aspirin 81 mg 06/12/19 10:00 06/13/19 12:23 Baby Aspirin PO 81 mg QDAY ELIZABETH Administration Cholestyramine Resin 4 gm 06/05/19 20:00 06/13/19 13:35 Questran PO 4 gm TID ELIZABETH Administration Dextrose 50 ml 06/05/19 14:03 06/10/19 22:14 D50w (25gm) Syringe IV 50 ml PRN PRN Administration Hypoglycemia Famotidine 20 mg 06/05/19 22:00 06/13/19 12:23 Pepcid PO 20 mg DAILY ELIZABETH Administration Ferrous Gluconate 324 mg 06/05/19 22:00 06/13/19 12:24 Fergon PO 324 mg BID ELIZABETH Administration Finasteride 5 mg 06/06/19 10:00 06/13/19 12:22 Proscar PO 5 mg DAILY ELIZABETH Administration Heparin Sodium (Porcine) 5,000 unit 06/12/19 10:00 06/13/19 12:22 Heparin SUB-Q 5,000 unit Q12HR ELIZABETH Administration Hydralazine HCl 10 mg 06/07/19 14:00 06/07/19 13:42 Apresoline IV 10 mg Q3HR PRN Administration Elevated BP Sodium Chloride 500 mls @ 999 mls/hr 06/13/19 16:15 Nacl 0.9% 500 Ml IV 06/13/19 16:45 ONCE ONE Insulin Human Lispro 0 unit 06/05/19 16:30 06/13/19 13:02 Humalog SUB-Q 4 unit ACHS ELIZABETH Administration Protocol Levofloxacin 750 mg 06/12/19 14:00 06/12/19 14:50 Levaquin PO 750 mg Q48H ELIZABETH Administration Mirtazapine 15 mg 06/05/19 22:00 06/12/19 22:20 Remeron PO Not Given QHS ELIZABETH Ondansetron HCl 4 mg 06/08/19 14:58 Zofran IV Q8H PRN Nausea And Vomiting Oxycodone/Acetaminophen 1 tab 06/08/19 14:58 Percocet 5/325 PO Q6H PRN Pain, Moderate (4-6) Simple Syrup 15 ml 06/09/19 16:01 Simple Syrup FEEDTUBE PRN PRN Hypoglycemia Simple Syrup 30 ml 06/09/19 16:01 Simple Syrup FEEDTUBE PRN PRN Hypoglycemia Sodium Bicarbonate 325 mg 06/09/19 16:01 Sodium Bicarbonate FEEDTUBE PRN PRN For Clogged Feeding Tube Sodium Chloride 10 ml 06/05/19 22:00 06/13/19 12:25 Sodium Chloride Flush Syringe 10 Ml IV 10 ml BID ELIZABETH Administration Sodium Chloride 10 ml 06/05/19 14:00 06/13/19 13:04 Sodium Chloride Flush Syringe 10 Ml IV 10 ml PRN PRN Administration LINE FLUSH Sodium Chloride 10 ml 06/08/19 22:00 06/13/19 13:35 Sodium Chloride Flush Syringe 10 Ml IV Not Given BID ELIZABETH Sodium Chloride 10 ml 06/08/19 14:58 Sodium Chloride Flush Syringe 10 Ml IV PRN PRN LINE FLUSH Tamsulosin HCl 0.4 mg 06/06/19 10:00 06/13/19 12:23 Flomax PO 0.4 mg QDAY ELIZABETH Administration Vitamin B Complex/Vitamin C 1 each 06/06/19 10:00 06/13/19 12:24 [place] With C PO 1 each QDAY ELIZABETH Administration Nutrition/Malnutrition Assess - Dietary Evaluation Nutrition/Malnutrition Findings: Nutrition Notes Start: 06/06/19 08:45 Freq: Status: Active Protocol: Document 06/11/19 11:10 LP (Rec: 06/11/19 11:12 LP [id number]) Nutrition Notes Initial or Follow up Reassessment Current Diagnosis Acute Kidney Injury,Decubitus( Pressure Ulcer),Sepsis, Hypertension,Malnutrition Other Pertinent Diagnosis Dementia, GERD, UTI, Metabolic encephalopathy Current Diet Glucerna 1.2 at 65ml/hr Labs/Tests BUN 30 Cr 2 K 3.4 BG 358 Pertinent Medications Reviewed Height 6 ft Weight 49.2 kg [place] Body Weight (kg) 80.90 BMI 14.7 Subjective/Other Information Pt tolerating TF at goal rate. Percent of energy/protein needs met: 100%/100% Burn Absent Trauma Absent #1 Nutrition Diagnosis Malnutrition Diagnosis Progress(for reassessment Continues documentation) Is patient on ventilator? No Is Patient Ambulatory and/or Out of Bed No REE-([facility]-confined to bed) 1571.844 Kcal/Kg value to use for calculation 40 Approximate Energy Requirements Using 1968 kcal/Kg Calculation Used for Recommendations Kcal/kg Additional Notes Pro needs 1.2-1.5g/k-74g/ day Fluid needs 1ml/kcal Nutrition Intervention Change Diet Order: TF Nutrition Support: Glucerna 1.2 at 65ml/hr with 100ml water flush q4h Kcal 1,872 Protein (gm) 94 Fluid (mL) 1,256 Goal #1 Meet at least 80% of kcal and protein needs via TF Goal #2 Wt maintenance and/or gain Anticipated Discharge Needs: Unable to determine at this time Follow-Up By: 06/17/19 Additional Comments Follow for TF tolerance
[2019-06-13] MEDS ORDERED: PROVENTIL IH ONE (16:29)
[2019-06-13] MEDS ORDERED: NACL 0.9% 500 ML 500 ML ONE (16:32)
[2019-06-13] MEDS ORDERED: INTROPIN DRIP 800 MG/D5W 250 ML 800 MG/250 ML BAG IV ONE (16:58)
[2019-06-13] MEDS ORDERED: ATROPINE 0.1% (CARDIAC) ONE (16:58)
[2019-06-13] MEDS ORDERED: XYLOCAINE 1% 20 mL INFILTRATI ONE (16:59)
[2019-06-13] MEDS ORDERED: INTROPIN DRIP 800 MG/D5W 250 ML 800 MG/250 ML BAG IV SCH (17:00)
[2019-06-13] MEDS ORDERED: ATROPINE 0.1% (CARDIAC) IV STA (17:02)
[2019-06-13] MEDS ORDERED: XYLOCAINE 1% 20 mL ONE (17:04)
--- NOTE | 2019-06-13 17:54 | Event Note ---
Date: 06/13/19 pPtient transferred to ICU. Now has hypotension, more bradycardia, so started on Dopamine drip.EKG shows ST elevations in inferior leads. I sent image to Dr. Godwin Gordon, Cardiology and he states EKG not suggestive of STEMI. Patient critically ill, prognosis guarded.
--- NOTE | 2019-06-13 19:34 | Event Note ---
Date: 06/13/19 Received request from Hospital physician, Dr.M Atkins, to place intraosseous line to initiate vasopressor therapy. Dr. Carmen Atkins, and myself have emergently and administratively provided consent to the patient for intraosseous line for purpose of vasopressor therapy administration. The left proximal tibia was selected, cleansed with chlorhexidine, with typical aseptic technique infiltrated with 5 mL of 1% lidocaine without epinephrine, and then a 25 mm 15- gauge intraosseous line was drilled into the appropriate tibial landmarks, with no difficulty. Appropriate bone marrow was aspirated without difficulty. Patient given 5 mL of 1% lidocaine without epinephrine through the IO for pain control. This line may be used for the next 24 hours for vasopressor administration, and all medications and products necessary. However, recommend changing over to definitive line, as soon as possible. We will defer management to the inpatient team.
[2019-06-13 19:51] LABS: Creatine Kinase MB 16.7 ng/mL (0.0-4.0)
[2019-06-13] MEDS: REMERON PO SCH (22:01)
[2019-06-14] MEDS ORDERED: VERSED IV ONE (00:24)
[2019-06-14] MEDS: HumaLOG SUB-Q SCH ×4 (02:00→19:09)
[2019-06-14 02:03] LABS: Calcium 9.2 mg/dL (8.4-10.2)
[2019-06-14 02:18] LABS: Hematocrit 35.1 % (35.5-45.6); Hemoglobin 11.5 gm/dl (11.8-15.2); Mean Corpuscular HGB Conc 33 % (32-34); Mean Corpuscular Volume 87 fl (84-94); Red Blood Count 4.03 M/mm3 (3.65-5.03); Red Cell Distribution Width 18.1 % (13.2-15.2)
[2019-06-14 02:38] LABS: Platelet Count 145 K/mm3 (140-440)
--- NOTE | 2019-06-14 03:02 | Event Note ---
Date: 06/13/19 Pt desaturates to low 80s on BiPAP with FiO2 of 50%. Present at bedside to assess patient FiO2 increased to 100% with saturation and low to mid 90s. Reviewed ABG discussed case with modeling and simulation analyst. Family was contacted and states that patient is to remain full code and they are okay with intubation if needed. Patient was given additional amp of bicarbonate. Repeat ABG and ordered lactic acid post bicarbonate administration.
[2019-06-14] MEDS: LEVOPHED DRIP 4 MG/NS 250 ML 4 MG/250 ML BAG IV SCH ×8 (06:15→22:54)
[2019-06-14] MEDS ORDERED: NACL 0.9% 1000 ML 1,000 ML IV ONE (06:51)
[2019-06-14] MEDS ORDERED: NACL 0.9% 1000 ML 1,000 ML IV SCH (07:00)
--- NOTE | 2019-06-14 08:29 | Progress Note ---
Assessment and Plan Assessment and plan: Acute metabolic encephalopathy Neurochecks Neurology following MRI Brain neg for stroke Acute respiratory failure Now on BIPAP On supplemental Oxygen Pulmonology following Sepsis, present on admission due to UTI On Ertapenem ID Physician following Lactic acidosis UTI due to ESBL Klebsiella pneumonia ID Physician following Started on Ertapenem Acute kidney injury Cr 2.1 Nephrology following Dementia Monitor Neurochecks Diabetes mellitus type 2 Fingerstick q 6h Severe malnutrition BMI only 14.7 s/p PEG tube placed Sinus Bradycardia EKG sinus clarissa at 47 Yesterday heart rate went low as 38, started on Dopamine drip Cardiology following Full code status Prognosis guarded History Interval history: patient transferred to ICU yesterday because of hypotension, started on pressor Still Altered mental status Still lethargic today Hospitalist Physical - Physical exam Narrative exam: Gen: Not in acute distress, lying in bed, BIPAP on, malnourised, very ill looking HEENT: Normocephalic, atraumatic Neck: supple, no JVD Heart: S1 and S2 reg, no murmurs, rubs or gallop Lungs: Clear to auscultation, no wheeze Abd: soft, non tender, non distended, normal BS, PEG tube Ext: No edema, no clubbing, no cyanosis Neuro: lethargic, opens eyes, does not follow commands, - Constitutional Vitals: Temp Pulse Resp BP Pulse Ox 321 F H 111 H 39 H 132/75 97 06/13/19 23:54 06/14/19 07:44 06/14/19 07:44 06/14/19 07:44 06/14/19 07:44 General appearance: Present: other (lethargic, withdrawn) Results - Labs CBC & Chem 7: 06/14/19 01:38 06/14/19 01:38 Labs: Laboratory Last Values WBC 2.7 K/mm3 (4.5-11.0) L 06/14/19 01:38 RBC 4.03 M/mm3 (3.65-5.03) 06/14/19 01:38 Hgb 11.5 gm/dl (11.8-15.2) L 06/14/19 01:38 Hct 35.1 % (35.5-45.6) L 06/14/19 01:38 MCV 87 fl (84-94) 06/14/19 01:38 MCH 29 pg (28-32) 06/14/19 01:38 MCHC 33 % (32-34) 06/14/19 01:38 RDW 18.1 % (13.2-15.2) H 06/14/19 01:38 Plt Count 145 K/mm3 (140-440) 06/14/19 01:38 Lymph % (Auto) 32.7 % (13.4-35.0) 06/09/19 07:39 [place] % (Auto) 13.8 % (0.0-7.3) H 06/09/19 07:39 Eos % (Auto) 3.9 % (0.0-4.3) 06/09/19 07:39 Baso % (Auto) 0.9 % (0.0-1.8) 06/09/19 07:39 Lymph # 1.0 K/mm3 (1.2-5.4) L 06/09/19 07:39 [place] # 0.4 K/mm3 (0.0-0.8) 06/09/19 07:39 Eos # 0.1 K/mm3 (0.0-0.4) 06/09/19 07:39 Baso # 0.0 K/mm3 (0.0-0.1) 06/09/19 07:39 Seg Neutrophils % 48.7 % (40.0-70.0) 06/09/19 07:39 Seg Neutrophils # 1.5 K/mm3 (1.8-7.7) L 06/09/19 07:39 APTT 37.7 Sec. (24.2-36.6) H 06/05/19 11:11 POC ABG pH 7.259 (7.35-7.45) L 06/14/19 01:04 POC ABG pCO2 32.8 (35-45) L 06/14/19 01:04 POC ABG pO2 79 (80-105) L 06/14/19 01:04 POC ABG HCO3 14.7 (22-26 mml/L) 06/14/19 01:04 POC ABG Total CO2 16 (23-27mmol/L) 06/14/19 01:04 POC ABG O2 Sat 94 06/14/19 01:04 POC ABG Base Excess -12 ((-2) - (+3)mmol/L) 06/14/19 01:04 80 % 06/14/19 01:04 Sodium 144 mmol/L (137-145) 06/14/19 01:38 Potassium 3.5 mmol/L (3.6-5.0) L D 06/14/19 01:38 Chloride 112.2 mmol/L (98-107) H 06/14/19 01:38 Carbon Dioxide 18 mmol/L (22-30) L 06/14/19 01:38 17 mmol/L 06/14/19 01:38 BUN 39 mg/dL (9-20) H 06/14/19 01:38 2.1 mg/dL (0.8-1.5) H 06/14/19 01:38 Estimated GFR 38 ml/min 06/14/19 01:38 19 % 06/14/19 01:38 Glucose 293 mg/dL (75-100) H 06/14/19 01:38 POC Glucose 233 (70-105) H 06/14/19 04:55 10.8 % (4-6) H 06/08/19 22:14 Lactic Acid 4.60 mmol/L (0.7-2.0) H* 06/14/19 06:12 Calcium 9.2 mg/dL (8.4-10.2) 06/14/19 01:38 Phosphorus 2.50 mg/dL (2.5-4.5) 06/14/19 01:38 Magnesium 2.10 mg/dL (1.7-2.3) 06/11/19 08:56 0.30 mg/dL (0.1-1.2) 06/09/19 05:02 AST 28 units/L (5-40) 06/09/19 05:02 ALT 36 units/L (7-56) 06/09/19 05:02 125 units/L (35-129) 06/09/19 05:02 48.0 umol/L (25-60) 06/11/19 17:44 195 units/L (55-170) H 06/14/19 01:38 CK-MB (CK-2) 16.7 ng/mL (0.0-4.0) H 06/13/19 18:47 CK-MB (CK-2) Rel Index 5.6 (0-4) H 06/13/19 18:47 0.011 ng/mL (0.00-0.029) 06/14/19 01:38 NT-Pro-B Natriuret Pep 446.0 pg/mL (0-900) 06/05/19 11:11 5.8 g/dL (6.3-8.2) L 06/09/19 05:02 2.8 g/dL (3.9-5) L 06/09/19 05:02 0.9 % 06/09/19 05:02 Triglycerides 60 mg/dL (2-149) 06/05/19 11:11 Cholesterol 181 mg/dL (50-199) 06/05/19 11:11 68 mg/dL (50-130) 06/05/19 11:11 115 mg/dL (40-59) H 06/05/19 11:11 1.57 % 06/05/19 11:11 TSH 0.630 mlU/mL (0.270-4.200) 06/05/19 13:26 Free T4 1.04 ng/dL (0.76-1.46) 06/05/19 13:26 Yellow (Yellow) 06/05/19 13:21 Slightly-cloudy (Clear) 06/05/19 13:21 6.0 (5.0-7.0) 06/05/19 13:21 Ur Specific [place] 1.012 (1.003-1.030) 06/05/19 13:21 30 mg/dl mg/dL (Negative) 06/05/19 13:21 Neg mg/dL (Negative) 06/05/19 13:21 Neg mg/dL (Negative) 06/05/19 13:21 Mod (Negative) 06/05/19 13:21 Neg (Negative) 06/05/19 13:21 Neg (Negative) 06/05/19 13:21 < 2.0 mg/dL (<2.0) 06/05/19 13:21 Ur Leukocyte Esterase Mod (Negative) 06/05/19 13:21 14.0 /HPF (0.0-6.0) H 06/05/19 13:21 3.0 /HPF (0.0-6.0) 06/05/19 13:21 2+ /HPF (Negative) 06/05/19 13:21 Few /HPF 06/05/19 13:21 102.7 mg/dL (0.1-20.0) H 06/06/19 17:37 47 mmol/L 06/06/19 17:37 Active Medications - Current Medications Current Medications: Generic Name Dose Route Start Last Admin Trade Name Freq PRN Reason Stop Dose Admin Acetaminophen 650 mg 06/08/19 14:58 Tylenol PO Q4H PRN Pain MILD(1-3)/Fever >100.5/POLANCO Albuterol 2.5 mg 06/05/19 14:00 06/13/19 16:36 Proventil IH 2.5 mg Q4HRT PRN Administration Shortness Of Breath Lipase/Protease/Amylase 1 each 06/09/19 16:[address] 10,500 Unit FEEDTUBE PRN PRN For Clogged Feeding Tube Aspirin 81 mg 06/12/19 10:00 06/13/19 12:23 Baby Aspirin PO 81 mg QDAY ELIZABETH Administration Cholestyramine Resin 4 gm 06/05/19 20:00 06/13/19 22:01 Questran PO 4 gm TID ELIZABETH Administration Dextrose 50 ml 06/05/19 14:03 06/10/19 22:14 D50w (25gm) Syringe IV 50 ml PRN PRN Administration Hypoglycemia Famotidine 20 mg 06/05/19 22:00 06/13/19 12:23 Pepcid PO 20 mg DAILY ELIZABETH Administration Ferrous Gluconate 324 mg 06/05/19 22:00 06/13/19 22:02 Fergon PO 324 mg BID ELIZABETH Administration Finasteride 5 mg 06/06/19 10:00 06/13/19 12:22 Proscar PO 5 mg DAILY ELIZABETH Administration Heparin Sodium (Porcine) 5,000 unit 06/12/19 10:00 06/13/19 22:02 Heparin SUB-Q 5,000 unit Q12HR ELIZABETH Administration Hydralazine HCl 10 mg 06/07/19 14:00 06/07/19 13:42 Apresoline IV 10 mg Q3HR PRN Administration Elevated BP Norepinephrine 4 mg in 250 mls @ 7.5 mls/hr 06/14/19 06:15 06/14/19 08:18 Levophed Drip 4 Mg/Ns 250 Ml IV 30 mcg/min TITR ELIZABETH 112.5 mls/hr Administration Protocol 2 MCG/MIN Sodium Chloride 1,000 mls @ 100 mls/hr 06/14/19 07:00 Nacl 0.9% 1000 Ml IV DIRECT ELIZABETH Insulin Human Lispro 0 unit 06/13/19 20:00 06/14/19 02:00 Humalog SUB-Q 4 unit Q6H ELIZABETH Administration Protocol Levofloxacin 750 mg 06/12/19 14:00 06/12/19 14:50 Levaquin PO 750 mg Q48H ELIZABETH Administration Mirtazapine 15 mg 06/05/19 22:00 06/13/19 22:01 Remeron PO 15 mg QHS ELIZABETH Administration Ondansetron HCl 4 mg 06/08/19 14:58 Zofran IV Q8H PRN Nausea And Vomiting Oxycodone/Acetaminophen 1 tab 06/08/19 14:58 Percocet 5/325 PO Q6H PRN Pain, Moderate (4-6) Simple Syrup 15 ml 06/09/19 16:01 Simple Syrup FEEDTUBE PRN PRN Hypoglycemia Simple Syrup 30 ml 06/09/19 16:01 Simple Syrup FEEDTUBE PRN PRN Hypoglycemia Sodium Bicarbonate 325 mg 06/09/19 16:01 Sodium Bicarbonate FEEDTUBE PRN PRN For Clogged Feeding Tube Sodium Chloride 10 ml 06/05/19 22:00 06/13/19 22:04 Sodium Chloride Flush Syringe 10 Ml IV 10 ml BID ELIZABETH Administration Sodium Chloride 10 ml 06/05/19 14:00 06/13/19 13:04 Sodium Chloride Flush Syringe 10 Ml IV 10 ml PRN PRN Administration LINE FLUSH Sodium Chloride 10 ml 06/08/19 22:00 06/13/19 22:00 Sodium Chloride Flush Syringe 10 Ml IV 10 ml BID ELIZABETH Administration Sodium Chloride 10 ml 06/08/19 14:58 Sodium Chloride Flush Syringe 10 Ml IV PRN PRN LINE FLUSH Tamsulosin HCl 0.4 mg 06/06/19 10:00 06/13/19 12:23 Flomax PO 0.4 mg QDAY ELIZABETH Administration Vitamin B Complex/Vitamin C 1 each 06/06/19 10:00 06/13/19 12:24 [place] With C PO 1 each QDAY ELIZABETH Administration Nutrition/Malnutrition Assess - Dietary Evaluation Nutrition/Malnutrition Findings: Nutrition Notes Start: 06/06/19 08:45 Freq: Status: Active Protocol: Document 06/11/19 11:10 LP (Rec: 06/11/19 11:12 LP [id number]) Nutrition Notes Initial or Follow up Reassessment Current Diagnosis Acute Kidney Injury,Decubitus( Pressure Ulcer),Sepsis, Hypertension,Malnutrition Other Pertinent Diagnosis Dementia, GERD, UTI, Metabolic encephalopathy Current Diet Glucerna 1.2 at 65ml/hr Labs/Tests BUN 30 Cr 2 K 3.4 BG 358 Pertinent Medications Reviewed Height 6 ft Weight 49.2 kg [place] Body Weight (kg) 80.90 BMI 14.7 Subjective/Other Information Pt tolerating TF at goal rate. Percent of energy/protein needs met: 100%/100% Burn Absent Trauma Absent #1 Nutrition Diagnosis Malnutrition Diagnosis Progress(for reassessment Continues documentation) Is patient on ventilator? No Is Patient Ambulatory and/or Out of Bed No REE-([facility]-confined to bed) 1571.844 Kcal/Kg value to use for calculation 40 Approximate Energy Requirements Using 1968 kcal/Kg Calculation Used for Recommendations Kcal/kg Additional Notes Pro needs 1.2-1.5g/k-74g/ day Fluid needs 1ml/kcal Nutrition Intervention Change Diet Order: TF Nutrition Support: Glucerna 1.2 at 65ml/hr with 100ml water flush q4h Kcal 1,872 Protein (gm) 94 Fluid (mL) 1,256 Goal #1 Meet at least 80% of kcal and protein needs via TF Goal #2 Wt maintenance and/or gain Anticipated Discharge Needs: Unable to determine at this time Follow-Up By: 06/17/19 Additional Comments Follow for TF tolerance
[2019-06-14] MEDS ORDERED: HEPARIN SUB-Q SCH (10:00)
[2019-06-14] MEDS ORDERED: BABY ASPIRIN PO SCH (10:00)
[2019-06-14] MEDS: HEPARIN SUB-Q SCH ×2 (10:54→21:49)
[2019-06-14] MEDS ORDERED: ARTIFICIAL TEARS OPHTH OINT OU PRN (11:17)
[2019-06-14] MEDS ORDERED: VASELINE LIP THERAPY TP PRN (11:17)
[2019-06-14] MEDS ORDERED: SUBLIMAZE IV PRN (11:17)
--- NOTE | 2019-06-14 11:17 | Progress Note ---
Assessment and Plan Acute hypoxemic respiratory failure on supplemental oxygen Severe Sepsis with shock Acute metabolic encephalopathy Acute renal failure Severe protein calorie malnutrition Sinus Bradycardia Thrombocytopenia Cardiomyopathy EF 25% Metabolic acidosis, probably secondary to sepsis and renal failure Leucopenia - intubated - hyperventilate acutely to compensate for severe metabolic acidosis - avoid hyperchloremic component; D5W with 3 amps bicarbonate per liter started @ 150 mls/hr - aggressive volume resuscitation while septic keeping HFrEF in mind (EF 25%) - discontinue IO device as femoral CVL placed - place PICC line then discontinue femoral CVL - Wean supplemental oxygen to keep O2 sats>90% - VAP bundle instituted and will address daily - continue bronchodilators with pulmonary hygiene per RT - continue lung protective strategies - continue enteric nutrition via PEG at goal rate as tolerated - continue antiinfective's per ID rec's (de-escalate based on clinical and microbiologic data) - continue heparin for VTE prophylaxis, monitor platelet counts. - continue to monitor for bleeding - continue mobility protocols to prevent pressure ulcers - Cardio-protective measures - continue to avoid nephrotoxins, adjust all medications for GFR, CrcL - Azotemia per nephrology team otherwise - wean vasopressors to keep MAP > 65 mmHg (adding vasopressin) - continue chronic disease med's per attending - daily SAT's and SBT assessment as tolerated - Titrate sedation to RASS 0 to -1 - continue accuchecks with glycemic control per SSI for target blood glucose 140 - 180 mg/dL acutely - Agitation management - Prevention of delirium, maintenance of sleep-wake cycle - VTE and Stress ulcer prophylaxis - continue other care per attending / other consultants .... re-evaluate in am & prn CONDITION: CRITICAL PROGNOSIS: GUARDED CODE STATUS: FULL The high probability of a clinically significant, sudden or life-threatening deterioration of the [respiratory and cardiac] system(s) required my full and direct attention, intervention and personal management. The aggregate critical care time was [38] minutes without overlap. Time includes spent on; [x] Data Review and interpretation [x] Patient assessment and monitoring of vital signs [x] Documentation [x] Medication orders and management Subjective Date of service: 06/14/19 Principal diagnosis: Ac hypoxemic resp[ failure; Septic shock; PAPITO; Thrombocytopenia; HFrEF Interval history: Patient is seen today for: Acute hypoxemic respiratory failure; Severe sepsis with shock; Acute metabolic encephalopathy; Acute renal failure; Severe protein calorie malnutrition; Sinus Bradycardia; Thrombocytopenia; Cardiomyopathy EF 25%; Metabolic acidosis; Leucopenia Seen and examined at bedside; 24hour events reviewed; nursing and respiratory care staff consulted; no adverse overnight events reported to me; no real improv ement in work of breathing overnight on BIPAP though; rate in th 30's to 40's; AMS is worse; on full dose levophed; hypothermic; no seizures noted; no emesis or overt aspiration. Objective Vital Signs - 12hr 06/13/19 06/13/19 06/13/19 23:20 23:21 23:30 Temperature 97.2 F L Pulse Rate 100 H 100 H Pulse Rate [ From Monitor] Respiratory 12 13 Rate Blood Pressure 98/63 112/66 O2 Sat by Pulse 97 100 Oximetry 06/13/19 06/13/19 06/13/19 23:41 23:51 23:54 Temperature 321 F H Pulse Rate 97 H 97 H Pulse Rate [ From Monitor] Respiratory 12 12 Rate Blood Pressure 112/66 108/67 O2 Sat by Pulse 100 100 Oximetry 06/14/19 06/14/19 06/14/19 00:00 00:11 00:18 Temperature Pulse Rate 97 H 96 H 97 H Pulse Rate [ From Monitor] Respiratory 11 L 30 H 33 H Rate Blood Pressure 101/67 112/66 101/67 O2 Sat by Pulse 100 100 100 Oximetry 06/14/19 06/14/19 06/14/19 00:21 00:31 00:41 Temperature Pulse Rate 96 H 88 94 H Pulse Rate [ From Monitor] Respiratory 25 H 30 H 23 Rate Blood Pressure 116/68 70/42 116/68 O2 Sat by Pulse 100 100 100 Oximetry 06/14/19 06/14/19 06/14/19 00:50 01:00 01:04 Temperature Pulse Rate 96 H 98 H 97 H Pulse Rate [ From Monitor] Respiratory 13 30 H 39 H Rate Blood Pressure 70/42 120/72 120/72 O2 Sat by Pulse 98 100 100 Oximetry 06/14/19 06/14/19 06/14/19 01:11 01:21 01:30 Temperature Pulse Rate 98 H 100 H 100 H Pulse Rate [ From Monitor] Respiratory 31 H 30 H 30 H Rate Blood Pressure 120/72 92/62 94/63 O2 Sat by Pulse 100 99 99 Oximetry 06/14/19 06/14/19 06/14/19 01:41 01:51 02:00 Temperature Pulse Rate 96 H 94 H 97 H Pulse Rate [ From Monitor] Respiratory 33 H 43 H 30 H Rate Blood Pressure 94/63 71/46 92/60 O2 Sat by Pulse 99 99 97 Oximetry 06/14/19 06/14/19 06/14/19 02:11 02:20 02:30 Temperature Pulse Rate 98 H 98 H 98 H Pulse Rate [ From Monitor] Respiratory 52 H 30 H 16 Rate Blood Pressure 92/60 120/72 90/59 O2 Sat by Pulse 100 100 100 Oximetry 06/14/19 06/14/19 06/14/19 02:41 02:51 03:00 Temperature Pulse Rate 98 H 97 H 98 H Pulse Rate [ From Monitor] Respiratory 30 H 11 L 17 Rate Blood Pressure 107/67 96/62 105/57 O2 Sat by Pulse 99 98 99 Oximetry 06/14/19 06/14/19 06/14/19 03:11 03:21 03:30 Temperature Pulse Rate 101 H 97 H 97 H Pulse Rate [ From Monitor] Respiratory 15 41 H 32 H Rate Blood Pressure 105/57 78/54 99/68 O2 Sat by Pulse 100 100 100 Oximetry 06/14/19 06/14/19 06/14/19 03:41 03:42 03:51 Temperature Pulse Rate 99 H 99 H 100 H Pulse Rate [ From Monitor] Respiratory 26 H 42 H 30 H Rate Blood Pressure 99/68 99/68 95/65 O2 Sat by Pulse 99 100 98 Oximetry 06/14/19 06/14/19 06/14/19 04:00 04:11 04:21 Temperature Pulse Rate 101 H 103 H 104 H Pulse Rate [ From Monitor] Respiratory 18 30 H 38 H Rate Blood Pressure 95/66 95/66 85/59 O2 Sat by Pulse 97 98 97 Oximetry 06/14/19 06/14/19 06/14/19 04:30 04:41 04:51 Temperature Pulse Rate 105 H 105 H 108 H Pulse Rate [ From Monitor] Respiratory 14 31 H 16 Rate Blood Pressure 83/59 83/59 70/48 O2 Sat by Pulse 93 95 93 Oximetry 06/14/19 06/14/19 06/14/19 05:00 05:11 05:21 Temperature Pulse Rate 109 H 107 H 110 H Pulse Rate [ From Monitor] Respiratory 30 H 30 H 30 H Rate Blood Pressure 82/55 82/55 73/53 O2 Sat by Pulse 97 96 96 Oximetry 06/14/19 06/14/19 06/14/19 05:30 05:41 05:51 Temperature Pulse Rate 110 H 108 H 106 H Pulse Rate [ From Monitor] Respiratory 26 H 22 28 H Rate Blood Pressure 83/46 83/46 62/37 O2 Sat by Pulse 96 96 98 Oximetry 06/14/19 06/14/19 06/14/19 06:00 06:10 06:21 Temperature Pulse Rate 110 H 109 H 116 H Pulse Rate [ From Monitor] Respiratory 16 30 H 19 Rate Blood Pressure 74/48 67/43 75/51 O2 Sat by Pulse 97 100 96 Oximetry 06/14/19 06/14/19 06/14/19 06:30 06:41 06:51 Temperature Pulse Rate 129 H 89 88 Pulse Rate [ From Monitor] Respiratory 16 20 20 Rate Blood Pressure 142/78 56/33 61/33 O2 Sat by Pulse Oximetry 06/14/19 06/14/19 06/14/19 07:00 07:11 07:21 Temperature Pulse Rate 114 H 110 H 110 H Pulse Rate [ From Monitor] Respiratory 18 18 13 Rate Blood Pressure 155/85 155/85 144/84 O2 Sat by Pulse 100 100 100 Oximetry 06/14/19 06/14/19 06/14/19 07:30 07:41 07:44 Temperature Pulse Rate 110 H 111 H 111 H Pulse Rate [ From Monitor] Respiratory 14 14 39 H Rate Blood Pressure 138/73 132/75 132/75 O2 Sat by Pulse 98 97 97 Oximetry 06/14/19 06/14/19 06/14/19 07:51 08:00 08:11 Temperature 97.2 F L Pulse Rate 111 H 112 H 112 H Pulse Rate [ From Monitor] Respiratory 16 14 13 Rate Blood Pressure 138/75 121/68 121/68 O2 Sat by Pulse 97 97 95 Oximetry 06/14/19 06/14/19 06/14/19 08:21 08:30 08:41 Temperature Pulse Rate 114 H 114 H 114 H Pulse Rate [ From Monitor] Respiratory 15 15 22 Rate Blood Pressure 108/62 105/60 105/60 O2 Sat by Pulse 93 96 93 Oximetry 06/14/19 06/14/19 06/14/19 08:51 09:00 09:11 Temperature Pulse Rate 115 H 115 H 116 H Pulse Rate [ From Monitor] Respiratory 15 16 15 Rate Blood Pressure 113/66 101/59 101/59 O2 Sat by Pulse 95 94 93 Oximetry 06/14/19 06/14/19 06/14/19 09:21 09:30 09:41 Temperature Pulse Rate 117 H 115 H 116 H Pulse Rate [ From Monitor] Respiratory 15 15 15 Rate Blood Pressure 105/60 85/58 85/58 O2 Sat by Pulse 97 Oximetry 06/14/19 06/14/19 09:51 10:00 Temperature Pulse Rate 118 H 118 H Pulse Rate [ 116 H From Monitor] Respiratory 16 23 Rate Blood Pressure 85/58 114/60 O2 Sat by Pulse 95 96 Oximetry Constitutional: lethargic, other (elderly looking, emaciated AAM, normocephalic and atraumatic with increased respiratory effort at rest) Eyes: non-icteric ENT: oropharynx moist, other (ETT 23 cm GLORIA) Neck: supple, no lymphadenopathy, no JVD Effort: mildly labored Ascultation: Bilateral: diminished breath sounds, rales Percussion: Bilateral: not dull Cardiovascular: regular rate and rhythm, other (tachycardia) Gastrointestinal: normoactive bowel sounds, soft, non-tender, non-distended Integumentary: rash, decubitus ulcer Extremities: no cyanosis, no edema, pulses normal, no ischemia or petechiae, other (left tibial IO device) Neurologic: unable to assess Psychiatric: other (Unable to assess re AMS) CBC and BMP: 06/14/19 01:38 06/14/19 01:38 ABG, PT/INR, D-dimer: ABG POC ABG pH 7.259 (7.35-7.45) L 06/14/19 01:04 POC ABG pCO2 32.8 (35-45) L 06/14/19 01:04 POC ABG pO2 79 (80-105) L 06/14/19 01:04 POC ABG HCO3 14.7 (22-26 mml/L) 06/14/19 01:04 POC ABG Total CO2 16 (23-27mmol/L) 06/14/19 01:04 POC ABG O2 Sat 94 06/14/19 01:04 Abnormal lab findings: Abnormal Labs 06/05/19 06/05/19 06/05/19 10:24 11:11 11:11 WBC RBC Hgb 11.2 L Hct 33.2 L RDW 17.3 H Plt Count Riley % (Auto) Lymph # 0.9 L Seg Neutrophils % 76.0 H Seg Neutrophils # APTT 37.7 H POC ABG pH POC ABG pCO2 POC ABG pO2 Sodium Potassium Chloride Carbon Dioxide BUN Creatinine Glucose POC Glucose 125 H Hemoglobin A1c Lactic Acid Phosphorus Magnesium AST Alkaline Phosphatase Total Creatine Kinase CK-MB (CK-2) CK-MB (CK-2) Rel Index Troponin T Total Protein Albumin HDL Cholesterol Urine WBC (Auto) Urine Creatinine 06/05/19 06/05/19 06/05/19 11:11 11:11 11:36 WBC RBC Hgb Hct RDW Plt Count Riley % (Auto) Lymph # Seg Neutrophils % Seg Neutrophils # APTT POC ABG pH POC ABG pCO2 POC ABG pO2 Sodium 147 H Potassium Chloride 115.9 H Carbon Dioxide 18 L BUN 45 H Creatinine 2.4 H Glucose 118 H POC Glucose 109 H Hemoglobin A1c Lactic Acid 0.50 L Phosphorus Magnesium AST Alkaline Phosphatase 147 H Total Creatine Kinase CK-MB (CK-2) CK-MB (CK-2) Rel Index Troponin T 0.047 H Total Protein Albumin 3.5 L HDL Cholesterol 115 H Urine WBC (Auto) Urine Creatinine 06/05/19 06/05/19 06/05/19 13:21 14:03 16:16 WBC RBC Hgb Hct RDW Plt Count Riley % (Auto) Lymph # Seg Neutrophils % Seg Neutrophils # APTT POC ABG pH POC ABG pCO2 POC ABG pO2 Sodium Potassium Chloride Carbon Dioxide BUN Creatinine Glucose POC Glucose 56 L Hemoglobin A1c Lactic Acid 0.50 L Phosphorus Magnesium AST Alkaline Phosphatase Total Creatine Kinase CK-MB (CK-2) CK-MB (CK-2) Rel Index Troponin T Total Protein Albumin HDL Cholesterol Urine WBC (Auto) 14.0 H Urine Creatinine 06/05/19 06/05/19 06/05/19 18:52 19:38 20:07 WBC RBC Hgb Hct RDW Plt Count Riley % (Auto) Lymph # Seg Neutrophils % Seg Neutrophils # APTT POC ABG pH POC ABG pCO2 POC ABG pO2 Sodium Potassium Chloride Carbon Dioxide BUN Creatinine Glucose 128 H POC Glucose < 40 L 140 H Hemoglobin A1c Lactic Acid Phosphorus Magnesium AST Alkaline Phosphatase Total Creatine Kinase CK-MB (CK-2) CK-MB (CK-2) Rel Index Troponin T Total Protein Albumin HDL Cholesterol Urine WBC (Auto) Urine Creatinine 06/05/19 06/06/19 06/06/19 21:46 02:06 04:22 WBC RBC Hgb Hct RDW 18.1 H Plt Count Riley % (Auto) Lymph # Seg Neutrophils % 71.8 H Seg Neutrophils # APTT POC ABG pH POC ABG pCO2 POC ABG pO2 Sodium Potassium Chloride Carbon Dioxide BUN Creatinine Glucose POC Glucose 141 H 213 H Hemoglobin A1c Lactic Acid Phosphorus Magnesium AST Alkaline Phosphatase Total Creatine Kinase CK-MB (CK-2) CK-MB (CK-2) Rel Index Troponin T Total Protein Albumin HDL Cholesterol Urine WBC (Auto) Urine Creatinine 06/06/19 06/06/19 06/06/19 04:22 05:20 07:42 WBC RBC Hgb Hct RDW Plt Count Riley % (Auto) Lymph # Seg Neutrophils % Seg Neutrophils # APTT POC ABG pH POC ABG pCO2 POC ABG pO2 Sodium Potassium 5.1 H Chloride 112.2 H Carbon Dioxide 13 L BUN 44 H Creatinine 2.3 H Glucose 182 H POC Glucose 237 H 247 H Hemoglobin A1c Lactic Acid Phosphorus Magnesium 2.60 H AST 45 H Alkaline Phosphatase 164 H Total Creatine Kinase CK-MB (CK-2) CK-MB (CK-2) Rel Index Troponin T Total Protein Albumin 3.5 L HDL Cholesterol Urine WBC (Auto) Urine Creatinine 06/06/19 06/06/19 06/06/19 10:48 13:19 17:34 WBC RBC Hgb Hct RDW Plt Count [place] % (Auto) Lymph # Seg Neutrophils % Seg Neutrophils # APTT POC ABG pH POC ABG pCO2 POC ABG pO2 Sodium Potassium Chloride Carbon Dioxide BUN Creatinine Glucose POC Glucose 167 H 108 H < 40 L Hemoglobin A1c Lactic Acid Phosphorus Magnesium AST Alkaline Phosphatase Total Creatine Kinase CK-MB (CK-2) CK-MB (CK-2) Rel Index Troponin T Total Protein Albumin HDL Cholesterol Urine WBC (Auto) Urine Creatinine 06/06/19 06/06/19 06/06/19 17:37 18:10 20:50 WBC RBC Hgb Hct RDW Plt Count [place] % (Auto) Lymph # Seg Neutrophils % Seg Neutrophils # APTT POC ABG pH POC ABG pCO2 POC ABG pO2 Sodium Potassium Chloride Carbon Dioxide BUN Creatinine Glucose 71 L POC Glucose 227 H Hemoglobin A1c Lactic Acid Phosphorus Magnesium AST Alkaline Phosphatase Total Creatine Kinase CK-MB (CK-2) CK-MB (CK-2) Rel Index Troponin T Total Protein Albumin HDL Cholesterol Urine WBC (Auto) Urine Creatinine 102.7 H 06/07/19 06/07/19 06/07/19 02:36 05:40 07:59 WBC RBC Hgb Hct RDW Plt Count [place] % (Auto) Lymph # Seg Neutrophils % Seg Neutrophils # APTT POC ABG pH POC ABG pCO2 POC ABG pO2 Sodium Potassium Chloride Carbon Dioxide BUN Creatinine Glucose POC Glucose 144 H 183 H 207 H Hemoglobin A1c Lactic Acid Phosphorus Magnesium AST Alkaline Phosphatase Total Creatine Kinase CK-MB (CK-2) CK-MB (CK-2) Rel Index Troponin T Total Protein Albumin HDL Cholesterol Urine WBC (Auto) Urine Creatinine 06/07/19 06/07/19 06/07/19 11:40 14:35 15:12 WBC RBC Hgb Hct RDW Plt Count Riley % (Auto) Lymph # Seg Neutrophils % Seg Neutrophils # APTT POC ABG pH POC ABG pCO2 POC ABG pO2 Sodium Potassium Chloride Carbon Dioxide BUN 40 H Creatinine 2.2 H Glucose 154 H POC Glucose 160 H 164 H Hemoglobin A1c Lactic Acid Phosphorus Magnesium AST Alkaline Phosphatase Total Creatine Kinase CK-MB (CK-2) CK-MB (CK-2) Rel Index Troponin T Total Protein Albumin HDL Cholesterol Urine WBC (Auto) Urine Creatinine 06/07/19 06/07/19 06/08/19 16:35 21:43 02:00 WBC RBC Hgb Hct RDW Plt Count Riley % (Auto) Lymph # Seg Neutrophils % Seg Neutrophils # APTT POC ABG pH POC ABG pCO2 POC ABG pO2 Sodium Potassium Chloride Carbon Dioxide BUN Creatinine Glucose POC Glucose 181 H 62 L 126 H Hemoglobin A1c Lactic Acid Phosphorus Magnesium AST Alkaline Phosphatase Total Creatine Kinase CK-MB (CK-2) CK-MB (CK-2) Rel Index Troponin T Total Protein Albumin HDL Cholesterol Urine WBC (Auto) Urine Creatinine 06/08/19 06/08/19 06/08/19 05:46 05:55 05:55 WBC 3.1 L RBC Hgb 10.8 L Hct 31.6 L D RDW 16.8 H Plt Count Riley % (Auto) 14.3 H Lymph # 0.9 L Seg Neutrophils % Seg Neutrophils # 1.6 L APTT POC ABG pH POC ABG pCO2 POC ABG pO2 Sodium Potassium Chloride Carbon Dioxide 21 L BUN 38 H Creatinine 2.2 H Glucose 167 H POC Glucose 147 H Hemoglobin A1c Lactic Acid Phosphorus Magnesium AST Alkaline Phosphatase 130 H Total Creatine Kinase CK-MB (CK-2) CK-MB (CK-2) Rel Index Troponin T Total Protein 6.2 L Albumin 3.0 L HDL Cholesterol Urine WBC (Auto) Urine Creatinine 06/08/19 06/08/19 06/08/19 07:48 17:49 21:47 WBC RBC Hgb Hct RDW Plt Count [place] % (Auto) Lymph # Seg Neutrophils % Seg Neutrophils # APTT POC ABG pH POC ABG pCO2 POC ABG pO2 Sodium Potassium Chloride Carbon Dioxide BUN Creatinine Glucose POC Glucose 179 H 127 H 161 H Hemoglobin A1c Lactic Acid Phosphorus Magnesium AST Alkaline Phosphatase Total Creatine Kinase CK-MB (CK-2) CK-MB (CK-2) Rel Index Troponin T Total Protein Albumin HDL Cholesterol Urine WBC (Auto) Urine Creatinine 06/08/19 06/09/19 06/09/19 22:14 03:12 04:34 WBC RBC Hgb Hct RDW Plt Count [place] % (Auto) Lymph # Seg Neutrophils % Seg Neutrophils # APTT POC ABG pH POC ABG pCO2 POC ABG pO2 Sodium Potassium Chloride Carbon Dioxide BUN Creatinine Glucose POC Glucose 59 L 163 H Hemoglobin A1c 10.8 H Lactic Acid Phosphorus Magnesium AST Alkaline Phosphatase Total Creatine Kinase CK-MB (CK-2) CK-MB (CK-2) Rel Index Troponin T Total Protein Albumin HDL Cholesterol Urine WBC (Auto) Urine Creatinine 06/09/19 06/09/19 06/09/19 05:02 07:39 08:34 WBC 3.1 L RBC Hgb 10.6 L Hct 31.7 L RDW 17.0 H Plt Count Riley % (Auto) 13.8 H Lymph # 1.0 L Seg Neutrophils % Seg Neutrophils # 1.5 L APTT POC ABG pH POC ABG pCO2 POC ABG pO2 Sodium Potassium Chloride Carbon Dioxide BUN 37 H Creatinine 2.0 H Glucose 176 H POC Glucose 206 H Hemoglobin A1c Lactic Acid Phosphorus Magnesium AST Alkaline Phosphatase Total Creatine Kinase CK-MB (CK-2) CK-MB (CK-2) Rel Index Troponin T Total Protein 5.8 L Albumin 2.8 L HDL Cholesterol Urine WBC (Auto) Urine Creatinine 06/09/19 06/09/19 06/10/19 17:55 21:36 05:20 WBC RBC Hgb Hct RDW Plt Count [place] % (Auto) Lymph # Seg Neutrophils % Seg Neutrophils # APTT POC ABG pH POC ABG pCO2 POC ABG pO2 Sodium Potassium 3.3 L Chloride Carbon Dioxide BUN 34 H Creatinine 2.0 H Glucose 212 H POC Glucose 265 H 132 H Hemoglobin A1c Lactic Acid Phosphorus Magnesium AST Alkaline Phosphatase Total Creatine Kinase CK-MB (CK-2) CK-MB (CK-2) Rel Index Troponin T Total Protein Albumin HDL Cholesterol Urine WBC (Auto) Urine Creatinine 06/10/19 06/10/19 06/10/19 05:20 07:00 11:48 WBC 4.4 L RBC 3.47 L Hgb 10.0 L Hct 29.6 L RDW 16.9 H Plt Count Riley % (Auto) Lymph # Seg Neutrophils % Seg Neutrophils # APTT POC ABG pH POC ABG pCO2 POC ABG pO2 Sodium Potassium Chloride Carbon Dioxide BUN Creatinine Glucose POC Glucose 249 H 279 H Hemoglobin A1c Lactic Acid Phosphorus Magnesium AST Alkaline Phosphatase Total Creatine Kinase CK-MB (CK-2) CK-MB (CK-2) Rel Index Troponin T Total Protein Albumin HDL Cholesterol Urine WBC (Auto) Urine Creatinine 06/10/19 06/10/19 06/10/19 18:25 21:50 23:22 WBC RBC Hgb Hct RDW Plt Count [place] % (Auto) Lymph # Seg Neutrophils % Seg Neutrophils # APTT POC ABG pH POC ABG pCO2 POC ABG pO2 Sodium Potassium Chloride Carbon Dioxide BUN Creatinine Glucose POC Glucose 157 H 58 L 124 H Hemoglobin A1c Lactic Acid Phosphorus Magnesium AST Alkaline Phosphatase Total Creatine Kinase CK-MB (CK-2) CK-MB (CK-2) Rel Index Troponin T Total Protein Albumin HDL Cholesterol Urine WBC (Auto) Urine Creatinine 06/11/19 06/11/19 06/11/19 05:15 06:48 11:52 WBC RBC Hgb Hct RDW Plt Count [place] % (Auto) Lymph # Seg Neutrophils % Seg Neutrophils # APTT POC ABG pH POC ABG pCO2 POC ABG pO2 Sodium Potassium 3.4 L Chloride 108.1 H Carbon Dioxide BUN 30 H Creatinine 2.0 H Glucose 358 H POC Glucose 441 H 339 H Hemoglobin A1c Lactic Acid Phosphorus Magnesium AST Alkaline Phosphatase Total Creatine Kinase CK-MB (CK-2) CK-MB (CK-2) Rel Index Troponin T Total Protein Albumin HDL Cholesterol Urine WBC (Auto) Urine Creatinine 06/11/19 06/11/19 06/12/19 17:41 23:52 05:38 WBC RBC Hgb Hct RDW Plt Count [place] % (Auto) Lymph # Seg Neutrophils % Seg Neutrophils # APTT POC ABG pH POC ABG pCO2 POC ABG pO2 Sodium Potassium Chloride 115.2 H Carbon Dioxide 18 L BUN 32 H Creatinine 2.0 H Glucose 164 H POC Glucose 311 H 119 H Hemoglobin A1c Lactic Acid Phosphorus 1.30 L Magnesium AST Alkaline Phosphatase Total Creatine Kinase CK-MB (CK-2) CK-MB (CK-2) Rel Index Troponin T Total Protein Albumin HDL Cholesterol Urine WBC (Auto) Urine Creatinine 06/12/19 06/12/19 06/12/19 06:41 10:34 11:49 WBC RBC Hgb Hct RDW Plt Count [place] % (Auto) Lymph # Seg Neutrophils % Seg Neutrophils # APTT POC ABG pH POC ABG pCO2 POC ABG pO2 Sodium Potassium Chloride Carbon Dioxide BUN Creatinine Glucose POC Glucose 178 H 198 H 200 H Hemoglobin A1c Lactic Acid Phosphorus Magnesium AST Alkaline Phosphatase Total Creatine Kinase CK-MB (CK-2) CK-MB (CK-2) Rel Index Troponin T Total Protein Albumin HDL Cholesterol Urine WBC (Auto) Urine Creatinine 06/12/19 06/12/19 06/13/19 13:30 17:19 04:51 WBC RBC 3.48 L Hgb 10.1 L Hct 30.0 L RDW 18.3 H Plt Count 129 L Riley % (Auto) Lymph # Seg Neutrophils % Seg Neutrophils # APTT POC ABG pH 7.235 L POC ABG pCO2 POC ABG pO2 200 H Sodium Potassium Chloride Carbon Dioxide BUN Creatinine Glucose POC Glucose 167 H Hemoglobin A1c Lactic Acid Phosphorus Magnesium AST Alkaline Phosphatase Total Creatine Kinase CK-MB (CK-2) CK-MB (CK-2) Rel Index Troponin T Total Protein Albumin HDL Cholesterol Urine WBC (Auto) Urine Creatinine 06/13/19 06/13/19 06/13/19 04:51 11:45 14:34 WBC RBC Hgb Hct RDW Plt Count [place] % (Auto) Lymph # Seg Neutrophils % Seg Neutrophils # APTT POC ABG pH 7.184 L POC ABG pCO2 POC ABG pO2 Sodium Potassium Chloride 112.4 H Carbon Dioxide 17 L BUN 36 H Creatinine 2.0 H Glucose 329 H POC Glucose 338 H Hemoglobin A1c Lactic Acid Phosphorus Magnesium AST Alkaline Phosphatase Total Creatine Kinase CK-MB (CK-2) CK-MB (CK-2) Rel Index Troponin T Total Protein Albumin HDL Cholesterol Urine WBC (Auto) Urine Creatinine 06/13/19 06/13/19 06/13/19 17:39 18:47 20:12 WBC RBC Hgb Hct RDW Plt Count [place] % (Auto) Lymph # Seg Neutrophils % Seg Neutrophils # APTT POC ABG pH 7.178 L 7.186 L POC ABG pCO2 POC ABG pO2 70 L 74 L Sodium Potassium Chloride Carbon Dioxide BUN Creatinine Glucose POC Glucose Hemoglobin A1c Lactic Acid Phosphorus Magnesium AST Alkaline Phosphatase Total Creatine Kinase 295 H CK-MB (CK-2) 16.7 H CK-MB (CK-2) Rel Index 5.6 H Troponin T Total Protein Albumin HDL Cholesterol Urine WBC (Auto) Urine Creatinine 06/13/19 06/13/19 06/14/19 21:52 23:52 00:20 WBC RBC Hgb Hct RDW Plt Count [place] % (Auto) Lymph # Seg Neutrophils % Seg Neutrophils # APTT POC ABG pH POC ABG pCO2 POC ABG pO2 Sodium Potassium Chloride Carbon Dioxide BUN Creatinine Glucose POC Glucose 387 H 321 H Hemoglobin A1c Lactic Acid 4.50 H* Phosphorus Magnesium AST Alkaline Phosphatase Total Creatine Kinase CK-MB (CK-2) CK-MB (CK-2) Rel Index Troponin T Total Protein Albumin HDL Cholesterol Urine WBC (Auto) Urine Creatinine 06/14/19 06/14/19 06/14/19 01:04 01:38 01:38 WBC 2.7 L RBC Hgb 11.5 L Hct 35.1 L RDW 18.1 H Plt Count [place] % (Auto) Lymph # Seg Neutrophils % Seg Neutrophils # APTT POC ABG pH 7.259 L POC ABG pCO2 32.8 L POC ABG pO2 79 L Sodium Potassium 3.5 L D Chloride 112.2 H Carbon Dioxide 18 L BUN 39 H Creatinine 2.1 H Glucose 293 H POC Glucose Hemoglobin A1c Lactic Acid Phosphorus Magnesium AST Alkaline Phosphatase Total Creatine Kinase 195 H CK-MB (CK-2) CK-MB (CK-2) Rel Index Troponin T Total Protein Albumin HDL Cholesterol Urine WBC (Auto) Urine Creatinine 06/14/19 06/14/19 06/14/19 04:55 06:12 08:06 WBC RBC Hgb Hct RDW Plt Count [place] % (Auto) Lymph # Seg Neutrophils % Seg Neutrophils # APTT POC ABG pH POC ABG pCO2 POC ABG pO2 Sodium Potassium Chloride Carbon Dioxide BUN Creatinine Glucose POC Glucose 233 H Hemoglobin A1c Lactic Acid 4.60 H* 4.70 H* Phosphorus Magnesium AST Alkaline Phosphatase Total Creatine Kinase CK-MB (CK-2) CK-MB (CK-2) Rel Index Troponin T Total Protein Albumin HDL Cholesterol Urine WBC (Auto) Urine Creatinine 06/14/19 09:02 WBC RBC Hgb Hct RDW Plt Count [place] % (Auto) Lymph # Seg Neutrophils % Seg Neutrophils # APTT POC ABG pH POC ABG pCO2 POC ABG pO2 Sodium Potassium Chloride Carbon Dioxide BUN Creatinine Glucose POC Glucose 121 H Hemoglobin A1c Lactic Acid Phosphorus Magnesium AST Alkaline Phosphatase Total Creatine Kinase CK-MB (CK-2) CK-MB (CK-2) Rel Index Troponin T Total Protein Albumin HDL Cholesterol Urine WBC (Auto) Urine Creatinine Chest x-ray: image reviewed (bilateral R>L perihilar and basilar infiltrates; ETT in good position) Allied health notes reviewed: nursing
[2019-06-14] MEDS ORDERED: fentaNYL DRIP Premix 2,000 MCG/100 ML BAG IV SCH (12:00)
[2019-06-14] MEDS: SODIUM BICARBONATE 150 MEQ in D5W 1,000 ML IV SCH ×2 (12:44→20:35)
--- NOTE | 2019-06-14 12:52 | XRay Report ---
CHEST 1 VIEW INDICATION / CLINICAL INFORMATION: Endotracheal tube placement. COMPARISON: 06/12/2019 FINDINGS: SUPPORT DEVICES: Endotracheal tube tip is in the lower thoracic trachea, above the jessica at the leve l of the aortic arch. Position is satisfactory. HEART / MEDIASTINUM: Normal heart size. LUNGS / PLEURA: New hazy and reticular airspace opacities are present in both lungs but most conspicu ous in the right middle lung zone. A small right pleural effusion is suspected. No left pleural fluid . Hazy, triangular opacity at the right hilar and infrahilar region is noted. This may represent flui d in the major fissure. No pneumothorax. ADDITIONAL FINDINGS: No significant additional findings. IMPRESSION: 1. Satisfactory endotracheal tube position. 2. Interval development of hazy and reticular airspace opacities in both lungs, most conspicuous on t he right. This is concerning for pneumonia. 3. Small right pleural effusion, suspected to have a component in the major fissure medially. Signer Name: Tito Baker MD Signed: 06/14/2019 12:48 PM Workstation Name: [id number]
--- NOTE | 2019-06-14 13:50 | Progress Note ---
Assessment and Plan Patient is now in the intensive care unit. Patient appears to have sepsis, respiratory failure intubated on a ventilator. Patient is also noted to have severe hypotension on pressors. Overall prognosis is poor. Continue current management. - Patient Problems (1) Metabolic encephalopathy Current Visit: Yes Status: Acute (2) Sinus bradycardia Current Visit: Yes Status: Acute (3) UTI (urinary tract infection) Current Visit: Yes Status: Acute Qualifiers: Encounter type: initial encounter (4) Cardiomyopathy Current Visit: Yes Status: Chronic (5) Hypertension Current Visit: Yes Status: Chronic Qualifiers: Hypertension type: essential hypertension Qualified Code(s): I10 - Essential (primary) hypertension (6) PAPITO (acute kidney injury) Current Visit: No Status: Acute Subjective Date of service: 06/14/19 Principal diagnosis: Ac hypoxemic resp[ failure; Septic shock; PAPITO; Thrombocytopenia; HFrEF Interval history: Prior developments noted. Discussed with Dr. Barone and pulmonary database consultant. Prior notes are reviewed. Patient is currently intubated and unresponsive. Patient is also on pressors to maintain blood pressure. Objective Vital Signs Temp Pulse Pulse Pulse Resp Resp BP 06/14/19 10:00 118 H 116 H 23 114/60 06/14/19 09:51 118 H 16 85/58 06/14/19 09:41 116 H 15 85/58 06/14/19 09:30 115 H 15 85/58 06/14/19 09:21 117 H 15 105/60 06/14/19 09:11 116 H 15 101/59 06/14/19 09:00 115 H 16 101/59 06/14/19 08:51 115 H 15 113/66 06/14/19 08:41 114 H 22 105/60 06/14/19 08:30 114 H 15 105/60 06/14/19 08:21 114 H 15 108/62 06/14/19 08:11 112 H 13 121/68 06/14/19 08:00 97.2 F L 112 H 14 121/68 06/14/19 07:51 111 H 16 138/75 06/14/19 07:44 111 H 39 H 132/75 06/14/19 07:41 111 H 14 132/75 06/14/19 07:30 110 H 14 138/73 06/14/19 07:21 110 H 13 144/84 06/14/19 07:11 110 H 18 155/85 06/14/19 07:00 114 H 18 155/85 06/14/19 06:51 88 20 61/33 06/14/19 06:41 89 20 56/33 06/14/19 06:30 129 H 16 142/78 06/14/19 06:21 116 H 19 75/51 06/14/19 06:10 109 H 30 H 67/43 06/14/19 06:00 110 H 16 74/48 06/14/19 05:51 106 H 28 H 62/37 06/14/19 05:41 108 H 22 83/46 06/14/19 05:30 110 H 26 H 83/46 06/14/19 05:21 110 H 30 H 73/53 06/14/19 05:11 107 H 30 H 82/55 06/14/19 05:00 109 H 30 H 82/55 06/14/19 04:51 108 H 16 70/48 06/14/19 04:41 105 H 31 H 83/59 06/14/19 04:30 105 H 14 83/59 06/14/19 04:21 104 H 38 H 85/59 06/14/19 04:11 103 H 30 H 95/66 06/14/19 04:00 101 H 18 95/66 06/14/19 03:51 100 H 30 H 95/65 06/14/19 03:42 99 H 42 H 99/68 06/14/19 03:41 99 H 26 H 99/68 06/14/19 03:30 97 H 32 H 99/68 06/14/19 03:21 97 H 41 H 78/54 06/14/19 03:11 101 H 15 105/57 06/14/19 03:00 98 H 17 105/57 06/14/19 02:51 97 H 11 L 96/62 06/14/19 02:41 98 H 30 H 107/67 06/14/19 02:30 98 H 16 90/59 06/14/19 02:20 98 H 30 H 120/72 06/14/19 02:11 98 H 52 H 92/60 06/14/19 02:00 97 H 30 H 92/60 06/14/19 01:51 94 H 43 H 71/46 06/14/19 01:41 96 H 33 H 94/63 06/14/19 01:30 100 H 30 H 94/63 06/14/19 01:21 100 H 30 H 92/62 06/14/19 01:11 98 H 31 H 120/72 06/14/19 01:04 97 H 39 H 120/72 06/14/19 01:00 98 H 30 H 120/72 06/14/19 00:50 96 H 13 70/42 06/14/19 00:41 94 H 23 116/68 06/14/19 00:31 88 30 H 70/42 06/14/19 00:21 96 H 25 H 116/68 06/14/19 00:18 97 H 33 H 101/67 06/14/19 00:11 96 H 30 H 112/66 06/14/19 00:00 97 H 11 L 101/67 06/13/19 23:54 321 F H 06/13/19 23:51 97 H 12 108/67 06/13/19 23:41 97 H 12 112/66 06/13/19 23:30 100 H 13 112/66 06/13/19 23:21 100 H 12 98/63 06/13/19 23:20 97.2 F L 06/13/19 23:11 102 H 12 110/65 06/13/19 23:00 103 H 11 L 107/59 06/13/19 22:51 103 H 11 L 98/57 06/13/19 22:41 101 H 14 110/65 06/13/19 22:35 101 H 12 110/65 06/13/19 22:30 102 H 12 110/65 06/13/19 22:21 101 H 24 95/62 06/13/19 22:11 99 H 30 H 92/54 06/13/19 22:00 95 H 30 H 83/50 06/13/19 21:51 94 H 30 H 86/54 06/13/19 21:41 93 H 29 H 98/59 06/13/19 21:30 92 H 30 H 98/59 06/13/19 21:21 92 H 26 H 94/57 06/13/19 21:11 91 H 26 H 88/61 06/13/19 21:00 90 22 99/58 06/13/19 20:51 89 22 88/61 06/13/19 20:41 87 18 107/68 06/13/19 20:30 86 22 107/68 06/13/19 20:21 85 22 111/65 06/13/19 20:12 83 30 H 143/78 06/13/19 20:11 84 14 116/62 06/13/19 20:04 06/13/19 20:01 84 21 143/78 06/13/19 20:00 98.8 F 06/13/19 19:51 79 14 143/78 06/13/19 19:41 76 12 140/81 06/13/19 19:30 79 17 140/81 06/13/19 19:21 77 20 136/70 06/13/19 19:11 79 9 L 136/69 06/13/19 19:01 78 18 148/79 06/13/19 18:51 76 30 H 148/79 06/13/19 18:41 74 29 H 143/69 06/13/19 18:31 74 21 06/13/19 18:21 72 13 06/13/19 18:12 71 25 H 06/13/19 16:36 38 L 20 06/13/19 16:19 43 L 27 H 85/53 06/13/19 15:10 42 L 32 H 06/13/19 14:34 06/13/19 14:22 97.8 F 20 BP Pulse Ox 06/14/19 10:00 96 06/14/19 09:51 95 06/14/19 09:41 06/14/19 09:30 06/14/19 09:21 97 06/14/19 09:11 93 06/14/19 09:00 94 06/14/19 08:51 95 06/14/19 08:41 93 06/14/19 08:30 96 06/14/19 08:21 93 06/14/19 08:11 95 06/14/19 08:00 97 06/14/19 07:51 97 06/14/19 07:44 97 06/14/19 07:41 97 06/14/19 07:30 98 06/14/19 07:21 100 06/14/19 07:11 100 06/14/19 07:00 100 06/14/19 06:51 06/14/19 06:41 06/14/19 06:30 06/14/19 06:21 96 06/14/19 06:10 100 06/14/19 06:00 97 06/14/19 05:51 98 06/14/19 05:41 96 06/14/19 05:30 96 06/14/19 05:21 96 06/14/19 05:11 96 06/14/19 05:00 97 06/14/19 04:51 93 06/14/19 04:41 95 06/14/19 04:30 93 06/14/19 04:21 97 06/14/19 04:11 98 06/14/19 04:00 97 06/14/19 03:51 98 06/14/19 03:42 100 06/14/19 03:41 99 06/14/19 03:30 100 06/14/19 03:21 100 06/14/19 03:11 100 06/14/19 03:00 99 06/14/19 02:51 98 06/14/19 02:41 99 06/14/19 02:30 100 06/14/19 02:20 100 06/14/19 02:11 100 06/14/19 02:00 97 06/14/19 01:51 99 06/14/19 01:41 99 06/14/19 01:30 99 06/14/19 01:21 99 06/14/19 01:11 100 06/14/19 01:04 100 06/14/19 01:00 100 06/14/19 00:50 98 06/14/19 00:41 100 06/14/19 00:31 100 06/14/19 00:21 100 06/14/19 00:18 100 06/14/19 00:11 100 06/14/19 00:00 100 06/13/19 23:54 06/13/19 23:51 100 06/13/19 23:41 100 06/13/19 23:30 100 06/13/19 23:21 97 06/13/19 23:20 06/13/19 23:11 96 06/13/19 23:00 94 06/13/19 22:51 89 06/13/19 22:41 88 06/13/19 22:35 91 06/13/19 22:30 96 06/13/19 22:21 88 06/13/19 22:11 87 06/13/19 22:00 85 06/13/19 21:51 88 06/13/19 21:41 90 06/13/19 21:30 91 06/13/19 21:21 91 06/13/19 21:11 90 06/13/19 21:00 93 06/13/19 20:51 87 06/13/19 20:41 93 06/13/19 20:30 96 06/13/19 20:21 97 06/13/19 20:12 97 06/13/19 20:11 97 06/13/19 20:04 97 06/13/19 20:01 99 06/13/19 20:00 06/13/19 19:51 96 06/13/19 19:41 100 06/13/19 19:30 100 06/13/19 19:21 100 06/13/19 19:11 97 06/13/19 19:01 95 06/13/19 18:51 91 06/13/19 18:41 98 06/13/19 18:31 95 06/13/19 18:21 91 06/13/19 18:12 93 06/13/19 16:36 06/13/19 16:19 97 06/13/19 15:10 96 06/13/19 14:34 94 06/13/19 14:22 109/46 94 - Physical Examination General: Other (patient is intubated on ventilator.) HEENT: Positive: PERRL Neck: Positive: neck supple, trachea midline Cardiac: Positive: Regular Rhythm, Tachycardia Lungs: Positive: Decreased Breath Sounds (both bases) Neuro: Positive: Other ( patient is intubated. Nonresponsive) Abdomen: Positive: Soft Skin: Negative: Rash Musculoskeletal: No Pain Extremities: Present: Other (patient has a dressing on the leg.). Absent: edema - Labs and Meds Cardiac Enzymes 06/13/19 Range/Units 18:47 CK-MB (CK-2) 16.7 H (0.0-4.0) ng/mL CBC 06/14/19 Range/Units 01:38 WBC 2.7 L (4.5-11.0) K/mm3 RBC 4.03 (3.65-5.03) M/mm3 Hgb 11.5 L (11.8-15.2) gm/dl Hct 35.1 L (35.5-45.6) % Plt Count 145 (140-440) K/mm3 Comprehensive Metabolic Panel 06/14/19 Range/Units 01:38 Sodium 144 (137-145) mmol/L Potassium 3.5 L D (3.6-5.0) mmol/L Chloride 112.2 H (98-107) mmol/L Carbon Dioxide 18 L (22-30) mmol/L BUN 39 H (9-20) mg/dL Creatinine 2.1 H (0.8-1.5) mg/dL Glucose 293 H (75-100) mg/dL Calcium 9.2 (8.4-10.2) mg/dL - Imaging and Cardiology EKG: report reviewed, image reviewed Echo: report reviewed ( 05/19/2019 showed EF 25-30%, pericardium thickened and calcified, LV mild to mod dilated, mild to mod LVH, LA mildly dilated, trace MR, trace TR. ) - EKG Sinus rhythms and dysrhythmias: sinus bradycardia - Allied health notes Allied health notes reviewed: nursing
[2019-06-14] MEDS: PROVENTIL IH SCH ×2 (14:11→21:25)
[2019-06-14] MEDS: LEVAQUIN PO SCH (14:43)
[2019-06-14] MEDS: QUESTRAN PO SCH ×3 (14:43→21:49)
[2019-06-14] MEDS: BABY ASPIRIN PO SCH (14:43)
[2019-06-14] MEDS: PEPCID PO SCH (14:43)
[2019-06-14] MEDS: FLOMAX PO SCH (14:53)
[2019-06-14] MEDS: FERGON PO SCH ×2 (14:53→21:49)
[2019-06-14] MEDS: ALLBEE WITH C PO SCH (14:53)
[2019-06-14] MEDS: Vasostrict 20 UNIT in NACL 0.9% 100 ML IV SCH ×2 (15:31→22:54)
[2019-06-14] MEDS: PROSCAR PO SCH (15:42)
[2019-06-14] MEDS: SODIUM CHLORIDE FLUSH SYRINGE 10 ML IV SCH ×4 (15:42→22:20)
--- NOTE | 2019-06-14 16:23 | Progress Note ---
Assessment and Plan Previous Cultures: 05/19/2019 Blood: no growth 05/19/2019 Urine: ESBL Klebsiella Cultures: 06/05/2019 Urine: ESBL Klebsiella 06/05/2019 Blood: NGTD A/P: 68 yo M PMHx dementia, malnutrition, GERD, HTN admitted with AMS, ESBL UTI. 1) New shock: septic v/s cardiogenic. On 2 pressors. Also with new R sided pneumonia. Initially with severe sepsis secondary to ESBL UTI Renal US - no acute infective processes or stone. L renal cysts. 2) Metabolic encephalopathy: - remains altered, With slight improvement. CT head normal. Brain MRI shows stable chronic encephalomalacia in the left frontal lobe and left cerebellar hemisphere. Verbal defects expected. Neurology following. 3) Dementia 4) GERD 5) Malnutrition - s/p EGD and Peg placement 06/09/19 6) HTN 7) PAPITO v/s CKD: renally dose abx. Recs: - start empiric IV Meropenem renally adjusted (weight is only 49 kg) along with IV Vancomycin - repeat blood cultures. Check UA with urine culture - poor prognosis D/W Dr. Barone. Erica Bond MD, FACP [facility] ([facility] C: [phone] O: [phone] F: [phone] Subjective Date of service: 06/14/19 Principal diagnosis: Ac hypoxemic resp[ failure; Septic shock; PAPITO; Thrombocytopenia; HFrEF Interval history: Since last seen by us, patient developed worsening bradycardia, hypotension, moved to ICU, intubated. Now on 2 pressors and critically ill. Objective - Exam Narrative Exam: Physical Exam: Constitutional: sedated, intubated, cachexia Head, Ears, Nose: Normocephalic, atraumatic. External ears, nose normal Eyes: Conjunctivae/corneas clear. No icterus. No ptosis. Neck: Supple, no meningeal signs Oral: intubated Cardiovascular: S1, S2 normal. Respiratory: Good air entry, clear to auscultation bilaterally GI: Soft, non-tender; bowel sounds normal. No peritoneal signs. Condom cath + Musculoskeletal: No pedal edema, no cyanosis. Skin: No rash or abscess Hem/Lymphatic: No palpable cervical or supraclavicular nodes. No lymphangitis Psych: no agitation Neurological: sedated, intubated, on vent Lines: I/O line and R groin line + - Constitutional Vitals: Vital Signs Temp Pulse Resp BP Pulse Ox 97.6 F 134 H 32 H 94/62 96 06/14/19 12:00 06/14/19 15:41 06/14/19 15:41 06/14/19 15:41 06/14/19 15:41 Temperature -Last 24 Hours Temperature 97.6 F Temperature 97.2 F Temperature 321 F Temperature 97.2 F Temperature 98.8 F - Labs CBC & Chem 7: 06/14/19 01:38 06/14/19 01:38 Labs: Abnormal lab results 06/13/19 06/13/19 06/13/19 Range/Units 17:39 18:47 20:12 WBC (4.5-11.0) K/mm3 Hgb (11.8-15.2) gm/dl Hct (35.5-45.6) % RDW (13.2-15.2) % POC ABG pH 7.178 L 7.186 L (7.35-7.45) POC ABG pCO2 (35-45) POC ABG pO2 70 L 74 L (80-105) Potassium (3.6-5.0) mmol/L Chloride (98-107) mmol/L Carbon Dioxide (22-30) mmol/L BUN (9-20) mg/dL Creatinine (0.8-1.5) mg/dL Glucose (75-100) mg/dL POC Glucose (70-105) Lactic Acid (0.7-2.0) mmol/L Total Creatine Kinase 295 H (55-170) units/L CK-MB (CK-2) 16.7 H (0.0-4.0) ng/mL CK-MB (CK-2) Rel Index 5.6 H (0-4) 06/13/19 06/13/19 06/14/19 Range/Units 21:52 23:52 00:20 WBC (4.5-11.0) K/mm3 Hgb (11.8-15.2) gm/dl Hct (35.5-45.6) % RDW (13.2-15.2) % POC ABG pH (7.35-7.45) POC ABG pCO2 (35-45) POC ABG pO2 (80-105) Potassium (3.6-5.0) mmol/L Chloride (98-107) mmol/L Carbon Dioxide (22-30) mmol/L BUN (9-20) mg/dL Creatinine (0.8-1.5) mg/dL Glucose (75-100) mg/dL POC Glucose 387 H 321 H (70-105) Lactic Acid 4.50 H* (0.7-2.0) mmol/L Total Creatine Kinase (55-170) units/L CK-MB (CK-2) (0.0-4.0) ng/mL CK-MB (CK-2) Rel Index (0-4) 06/14/19 06/14/19 06/14/19 Range/Units 01:04 01:38 01:38 WBC 2.7 L (4.5-11.0) K/mm3 Hgb 11.5 L (11.8-15.2) gm/dl Hct 35.1 L (35.5-45.6) % RDW 18.1 H (13.2-15.2) % POC ABG pH 7.259 L (7.35-7.45) POC ABG pCO2 32.8 L (35-45) POC ABG pO2 79 L (80-105) Potassium 3.5 L D (3.6-5.0) mmol/L Chloride 112.2 H (98-107) mmol/L Carbon Dioxide 18 L (22-30) mmol/L BUN 39 H (9-20) mg/dL Creatinine 2.1 H (0.8-1.5) mg/dL Glucose 293 H (75-100) mg/dL POC Glucose (70-105) Lactic Acid (0.7-2.0) mmol/L Total Creatine Kinase 195 H (55-170) units/L CK-MB (CK-2) (0.0-4.0) ng/mL CK-MB (CK-2) Rel Index (0-4) 06/14/19 06/14/19 06/14/19 Range/Units 04:55 06:12 08:06 WBC (4.5-11.0) K/mm3 Hgb (11.8-15.2) gm/dl Hct (35.5-45.6) % RDW (13.2-15.2) % POC ABG pH (7.35-7.45) POC ABG pCO2 (35-45) POC ABG pO2 (80-105) Potassium (3.6-5.0) mmol/L Chloride (98-107) mmol/L Carbon Dioxide (22-30) mmol/L BUN (9-20) mg/dL Creatinine (0.8-1.5) mg/dL Glucose (75-100) mg/dL POC Glucose 233 H (70-105) Lactic Acid 4.60 H* 4.70 H* (0.7-2.0) mmol/L Total Creatine Kinase (55-170) units/L CK-MB (CK-2) (0.0-4.0) ng/mL CK-MB (CK-2) Rel Index (0-4) 06/14/19 06/14/19 06/14/19 Range/Units 09:02 10:59 11:25 WBC (4.5-11.0) K/mm3 Hgb (11.8-15.2) gm/dl Hct (35.5-45.6) % RDW (13.2-15.2) % POC ABG pH 7.269 L (7.35-7.45) POC ABG pCO2 (35-45) POC ABG pO2 53 L (80-105) Potassium (3.6-5.0) mmol/L Chloride (98-107) mmol/L Carbon Dioxide (22-30) mmol/L BUN (9-20) mg/dL Creatinine (0.8-1.5) mg/dL Glucose (75-100) mg/dL POC Glucose 121 H (70-105) Lactic Acid 5.00 H* (0.7-2.0) mmol/L Total Creatine Kinase (55-170) units/L CK-MB (CK-2) (0.0-4.0) ng/mL CK-MB (CK-2) Rel Index (0-4) 06/14/19 06/14/19 Range/Units 12:57 15:21 WBC (4.5-11.0) K/mm3 Hgb (11.8-15.2) gm/dl Hct (35.5-45.6) % RDW (13.2-15.2) % POC ABG pH 7.306 L (7.35-7.45) POC ABG pCO2 (35-45) POC ABG pO2 74 L (80-105) Potassium (3.6-5.0) mmol/L Chloride (98-107) mmol/L Carbon Dioxide (22-30) mmol/L BUN (9-20) mg/dL Creatinine (0.8-1.5) mg/dL Glucose (75-100) mg/dL POC Glucose (70-105) Lactic Acid 5.20 H* (0.7-2.0) mmol/L Total Creatine Kinase (55-170) units/L CK-MB (CK-2) (0.0-4.0) ng/mL CK-MB (CK-2) Rel Index (0-4) - Imaging and cardiology Chest x-ray: report reviewed, image reviewed (R sided pneumonia.)
[2019-06-14] MEDS ORDERED: VANCOMYCIN PHARMACY TO DOSE IV SCH (17:00)
[2019-06-14] MEDS: MERREM/NS 500 MG/50 ML 500 MG/50 ML BAG IV SCH (17:56)
[2019-06-14] MEDS ORDERED: VANCOMYCIN 750 MG in NACL 0.9% 500 ML 500 ML IV ONE (18:00)
[2019-06-14 19:25] LABS: Bacteria,Urine 3+ /HPF (Negative); Bilirubin,Urine NEG (Negative); Blood,Urine SM (Negative); Color,Urine Yellow (Yellow); Mucus,Urine FEW /HPF; Protein,Urine <15 mg/dL mg/dL (Negative); Urobilinogen,Urine < 2.0 mg/dL (<2.0)
[2019-06-14 19:33] LABS: WBC,Urine > 182.0 /HPF (0.0-6.0)
[2019-06-14] MEDS: REMERON PO SCH (21:49)
[2019-06-15] MEDS: HumaLOG SUB-Q SCH ×4 (01:05→20:56)
[2019-06-15] MEDS: PROVENTIL IH SCH ×6 (01:17→20:51)
[2019-06-15] MEDS: LEVOPHED DRIP 4 MG/NS 250 ML 4 MG/250 ML BAG IV SCH ×5 (02:06→22:23)
--- NOTE | 2019-06-15 02:52 | XRay Report ---
. CHEST 1 VIEW INDICATION / CLINICAL INFORMATION: follow up respiratory failure. COMPARISON: 06/14/2019 FINDINGS: SUPPORT DEVICES: Endotracheal tube remains in place unchanged. HEART / MEDIASTINUM: No significant abnormality. LUNGS / PLEURA: Patchy bilateral lung consolidation is stable. No effusions are seen. No pneumothorax . ADDITIONAL FINDINGS: No significant additional findings. IMPRESSION: 1. No significant change. Signer Name: Tyler Osorio MD Signed: 06/15/2019 2:47 AM Workstation Name: [id number]
[2019-06-15] MEDS: SODIUM BICARBONATE 150 MEQ in D5W 1,000 ML IV SCH (04:39)
[2019-06-15 04:43] LABS: Hematocrit 30.7 % (35.5-45.6); Hemoglobin 10.1 gm/dl (11.8-15.2); Mean Corpuscular HGB Conc 33 % (32-34); Mean Corpuscular Volume 86 fl (84-94); Red Blood Count 3.57 M/mm3 (3.65-5.03)
[2019-06-15] MEDS: MERREM/NS 500 MG/50 ML 500 MG/50 ML BAG IV SCH (04:43)
[2019-06-15 05:11] LABS: C-Reactive Protein 24.7 mg/dL (0.00-1.30); Calcium 7.5 mg/dL (8.4-10.2)
[2019-06-15 06:49] LABS: Platelet Count 90 K/mm3 (140-440)
[2019-06-15] MEDS ORDERED: HumuLIN R IV STA (07:38)
[2019-06-15] MEDS ORDERED: CALCIUM GLUCONATE 1,000 MG in NACL 0.9% 100 ML IV STA (07:48)
--- NOTE | 2019-06-15 08:48 | Progress Note ---
Assessment and Plan Assessment and plan: patient is 68 YO Male with Dementia, Severe Malnutrition, GERD, HTN presented to ED for evaluation. Patient was stuporous and unable to provide history. Pt history provided by his son. As per son, the patient has experienced progressive weakness over 3 weeks, but is able to care for himself. Patient was in his usual state of health few days earlier. Patient was found by his son to be confused, unable to stand, nonverbal and not following commands. EMS notified and patient brought to hospital . He was seen and evaluated in ED and found to have Metabolic Encephalopathy, Acute Kidney Injury, Acidosis, Severe Malnutrition, UTI, and Volume Depletion. Patient admitted to [facility]. Further work up revea led sepsis due to ESBL klebsiella pneumoniae. He was evaluated by Neurology, MRI unremarkable. He had bradycardia in 40s was seen by cardiology. He became worse, hypotensive, transferred to ICU started on Pressors, had acute resp failure, intubated. he is currently on 2 pressors, intubated, worsening renal function. Family wants everything done. Full code. Acute metabolic encephalopathy Neurochecks Neurology following MRI Brain neg for stroke Acute respiratory failure s/p intubated on 06/14 Was tried on BIPAP prior to intubation Pulmonology following Shock - Likely cardiogenic shock On Levophed and vasopressin Sepsis, present on admission due to UTI On Merrem, Vancomycin started by ID Physician ID Physician following Lactic acidosis UTI due to ESBL Klebsiella pneumoniae ID Physician following Cardiomyopathy EF 25-30% Acute kidney injury, worsening Cr 3.4 today Nephrology following Dementia Monitor Neurochecks Diabetes mellitus type 2 Fingerstick q 6h Severe malnutrition BMI only 14.7 s/p PEG tube placed Sinus Bradycardia EKG sinus clarissa at 47 On 06/13 heart rate went low as 38, started on Dopamine drip, now discontinued Cardiology following Full code status Prognosis guarded History Interval history: patient transferred to ICU 06/13 because of hypotension, started on pressors Intubated 06/14 Hospitalist Physical - Physical exam Narrative exam: Gen: Not in acute distress, lying in bed, BIPAP on, malnourished, very ill looking,intubated HEENT: Normocephalic, atraumatic Neck: supple, no JVD Heart: S1 and S2 reg, no murmurs, rubs or gallop Lungs: Clear to auscultation, no wheeze Abd: soft, non tender, non distended, normal BS, PEG tube Ext: No edema, no clubbing, no cyanosis Neuro: lethargic, Intubated - Constitutional Vitals: Temp Pulse Resp BP Pulse Ox 98.2 F 117 H 30 H 114/70 98 06/15/19 08:00 06/15/19 08:10 06/15/19 08:10 06/15/19 08:10 06/15/19 08:10 General appearance: Present: other (lethargic, withdrawn) Results - Labs CBC & Chem 7: 06/15/19 04:30 06/15/19 04:30 Labs: Laboratory Last Values WBC 10.7 K/mm3 (4.5-11.0) 06/15/19 04:30 RBC 3.57 M/mm3 (3.65-5.03) L 06/15/19 04:30 Hgb 10.1 gm/dl (11.8-15.2) L 06/15/19 04:30 Hct 30.7 % (35.5-45.6) L 06/15/19 04:30 MCV 86 fl (84-94) 06/15/19 04:30 MCH 28 pg (28-32) 06/15/19 04:30 MCHC 33 % (32-34) 06/15/19 04:30 RDW 18.0 % (13.2-15.2) H 06/15/19 04:30 Plt Count 90 K/mm3 (140-440) L 06/15/19 04:30 Lymph % (Auto) 32.7 % (13.4-35.0) 06/09/19 07:39 [place] % (Auto) 13.8 % (0.0-7.3) H 06/09/19 07:39 Eos % (Auto) 3.9 % (0.0-4.3) 06/09/19 07:39 Baso % (Auto) 0.9 % (0.0-1.8) 06/09/19 07:39 Lymph # 1.0 K/mm3 (1.2-5.4) L 06/09/19 07:39 [place] # 0.4 K/mm3 (0.0-0.8) 06/09/19 07:39 Eos # 0.1 K/mm3 (0.0-0.4) 06/09/19 07:39 Baso # 0.0 K/mm3 (0.0-0.1) 06/09/19 07:39 Seg Neutrophils % 48.7 % (40.0-70.0) 06/09/19 07:39 Seg Neutrophils # 1.5 K/mm3 (1.8-7.7) L 06/09/19 07:39 APTT 37.7 Sec. (24.2-36.6) H 06/05/19 11:11 POC ABG pH 7.412 (7.35-7.45) 06/15/19 04:44 POC ABG pCO2 32.8 (35-45) L 06/14/19 01:04 POC ABG pO2 83 (80-105) 06/15/19 04:44 POC ABG HCO3 12.4 (22-26 mml/L) 06/15/19 04:44 POC ABG Total CO2 13 (23-27mmol/L) 06/15/19 04:44 POC ABG O2 Sat 97 06/15/19 04:44 POC ABG Base Excess -12 ((-2) - (+3)mmol/L) 06/15/19 04:44 40 % 06/15/19 04:44 Sodium 140 mmol/L (137-145) 06/15/19 04:30 Potassium 5.7 mmol/L (3.6-5.0) H D 06/15/19 04:30 Chloride 104.7 mmol/L (98-107) 06/15/19 04:30 Carbon Dioxide 14 mmol/L (22-30) L 06/15/19 04:30 27 mmol/L 06/15/19 04:30 BUN 47 mg/dL (9-20) H 06/15/19 04:30 3.4 mg/dL (0.8-1.5) H D 06/15/19 04:30 Estimated GFR 22 ml/min 06/15/19 04:30 14 % 06/15/19 04:30 Glucose 383 mg/dL (75-100) H 06/15/19 04:30 POC Glucose 438 (70-105) H 06/15/19 06:24 10.8 % (4-6) H 06/08/19 22:14 Lactic Acid 8.90 mmol/L (0.7-2.0) H* 06/15/19 04:30 Calcium 7.5 mg/dL (8.4-10.2) L D 06/15/19 04:30 Phosphorus 4.50 mg/dL (2.5-4.5) D 06/15/19 04:30 Magnesium 1.90 mg/dL (1.7-2.3) 06/15/19 04:30 0.30 mg/dL (0.1-1.2) 06/09/19 05:02 AST 28 units/L (5-40) 06/09/19 05:02 ALT 36 units/L (7-56) 06/09/19 05:02 125 units/L (35-129) 06/09/19 05:02 48.0 umol/L (25-60) 06/11/19 17:44 195 units/L (55-170) H 06/14/19 01:38 CK-MB (CK-2) 16.7 ng/mL (0.0-4.0) H 06/13/19 18:47 CK-MB (CK-2) Rel Index 5.6 (0-4) H 06/13/19 18:47 0.011 ng/mL (0.00-0.029) 06/14/19 01:38 24.70 mg/dL (0.00-1.30) H 06/15/19 04:30 NT-Pro-B Natriuret Pep 446.0 pg/mL (0-900) 06/05/19 11:11 5.8 g/dL (6.3-8.2) L 06/09/19 05:02 2.8 g/dL (3.9-5) L 06/09/19 05:02 0.9 % 06/09/19 05:02 Triglycerides 60 mg/dL (2-149) 06/05/19 11:11 Cholesterol 181 mg/dL (50-199) 06/05/19 11:11 68 mg/dL (50-130) 06/05/19 11:11 115 mg/dL (40-59) H 06/05/19 11:11 1.57 % 06/05/19 11:11 TSH 0.630 mlU/mL (0.270-4.200) 06/05/19 13:26 Free T4 1.04 ng/dL (0.76-1.46) 06/05/19 13:26 Yellow (Yellow) 06/14/19 18:35 Cloudy (Clear) 06/14/19 18:35 5.0 (5.0-7.0) 06/14/19 18:35 Ur Specific [place] 1.009 (1.003-1.030) 06/14/19 18:35 <15 mg/dl mg/dL (Negative) 06/14/19 18:35 >=500 mg/dL (Negative) 06/14/19 18:35 Neg mg/dL (Negative) 06/14/19 18:35 Sm (Negative) 06/14/19 18:35 Neg (Negative) 06/14/19 18:35 Neg (Negative) 06/14/19 18:35 < 2.0 mg/dL (<2.0) 06/14/19 18:35 Ur Leukocyte Esterase Lg (Negative) 06/14/19 18:35 > 182.0 /HPF (0.0-6.0) H 06/14/19 18:35 13.0 /HPF (0.0-6.0) 06/14/19 18:35 3+ /HPF (Negative) 06/14/19 18:35 2+ /HPF 06/14/19 18:35 Few /HPF 06/14/19 18:35 2+ /HPF 06/14/19 18:35 102.7 mg/dL (0.1-20.0) H 06/06/19 17:37 47 mmol/L 06/06/19 17:37 Active Medications - Current Medications Current Medications: Generic Name Dose Route Start Last Admin Trade Name Freq PRN Reason Stop Dose Admin Acetaminophen 650 mg 06/08/19 14:58 Tylenol PO Q4H PRN Pain MILD(1-3)/Fever >100.5/POLANCO Albuterol 2.5 mg 06/14/19 14:00 06/15/19 07:32 Proventil IH 2.5 mg Q6HRT ELIZABETH Administration Lipase/Protease/Amylase 1 each 06/09/19 16:[address] 10,500 Unit FEEDTUBE PRN PRN For Clogged Feeding Tube Aspirin 81 mg 06/12/19 10:00 06/14/19 14:43 Baby Aspirin PO 81 mg QDAY ELIZABETH Administration Cholestyramine Resin 4 gm 06/05/19 20:00 06/14/19 21:49 Questran PO 4 gm TID ELIZABETH Administration Dextrose 50 ml 06/05/19 14:03 06/10/19 22:14 D50w (25gm) Syringe IV 50 ml PRN PRN Administration Hypoglycemia Famotidine 20 mg 06/05/19 22:00 06/14/19 14:43 Pepcid PO 20 mg DAILY ELIZABETH Administration Fentanyl 50 mcg 06/14/19 11:17 Sublimaze IV Q10MIN PRN ANALGESIA Ferrous Gluconate 324 mg 06/05/19 22:00 06/14/19 21:49 Fergon PO 324 mg BID ELIZABETH Administration Finasteride 5 mg 06/06/19 10:00 06/14/19 15:42 Proscar PO Not Given DAILY ELIZABETH Heparin Sodium (Porcine) 5,000 unit 06/12/19 10:00 06/14/19 21:49 Heparin SUB-Q 5,000 unit Q12HR ELIZABETH Administration Hydralazine HCl 10 mg 06/07/19 14:00 06/07/19 13:42 Apresoline IV 10 mg Q3HR PRN Administration Elevated BP Hydrophilic Ointment 1 applic 06/14/19 11:17 Vaseline Lip Therapy TP Q2HR PRN Dry Lips Norepinephrine 4 mg in 250 mls @ 7.5 mls/hr 06/14/19 06:15 06/15/19 02:06 Levophed Drip 4 Mg/Ns 250 Ml IV 20 mcg/min TITR ELIZABETH 75 mls/hr Administration Protocol 2 MCG/MIN Fentanyl Citrate 2,000 mcg in 100 mls @ 2.46 mls/hr 06/14/19 12:00 06/15/19 08:24 Fentanyl Drip Premix IV 0 mcg/kg/hr TITR ELIZABETH 0 mls/hr Titration Protocol 1 MCG/KG/HR Sodium Bicarbonate 150 meq/ 1,150 mls @ 150 mls/hr 06/14/19 12:00 06/15/19 04:39 Dextrose IV 06/16/19 19:39 150 mls/hr DIRECT ELIZABETH Administration Vasopressin 20 unit/ Sodium 101 mls @ 9.09 mls/hr 06/14/19 14:00 06/14/19 22:54 Chloride IV 0.03 units/min TITR ELIZABETH 9.09 mls/hr Administration Protocol 0.03 UNITS/MIN Meropenem 500 mg in 50 mls @ 50 mls/hr 06/16/19 10:00 Merrem/Ns 500 Mg/50 Ml IV Q24HR [facility] Insulin Human Lispro 0 unit 06/13/19 20:00 06/15/19 01:05 Humalog SUB-Q 4 unit Q6H ELIZABETH Administration Protocol Mirtazapine 15 mg 06/05/19 22:00 06/14/19 21:49 Remeron PO 15 mg QHS ELIZABETH Administration Multi-Ingred Cream/Lotion/Oil/Oint 1 applic 06/14/19 11:17 Artificial Tears Ophth Oint OU Q4HR PRN Dry Eye(s) Ondansetron HCl 4 mg 06/08/19 14:58 Zofran IV Q8H PRN Nausea And Vomiting Oxycodone/Acetaminophen 1 tab 06/08/19 14:58 Percocet 5/325 PO Q6H PRN Pain, Moderate (4-6) Simple Syrup 15 ml 06/09/19 16:01 Simple Syrup FEEDTUBE PRN PRN Hypoglycemia Simple Syrup 30 ml 06/09/19 16:01 Simple Syrup FEEDTUBE PRN PRN Hypoglycemia Sodium Bicarbonate 325 mg 06/09/19 16:01 Sodium Bicarbonate FEEDTUBE PRN PRN For Clogged Feeding Tube Sodium Chloride 10 ml 06/05/19 22:00 06/14/19 22:20 Sodium Chloride Flush Syringe 10 Ml IV 10 ml BID ELIZABETH Administration Sodium Chloride 10 ml 06/05/19 14:00 06/13/19 13:04 Sodium Chloride Flush Syringe 10 Ml IV 10 ml PRN PRN Administration LINE FLUSH Sodium Chloride 10 ml 06/08/19 22:00 06/14/19 22:20 Sodium Chloride Flush Syringe 10 Ml IV 10 ml BID ELIZABETH Administration Sodium Chloride 10 ml 06/08/19 14:58 Sodium Chloride Flush Syringe 10 Ml IV PRN PRN LINE FLUSH Sodium Polystyrene Sulfonate 30 gm 06/15/19 08:00 Kionex PO 06/15/19 14:01 Q6H ELIZABETH Tamsulosin HCl 0.4 mg 06/06/19 10:00 06/14/19 14:53 Flomax PO 0.4 mg QDAY ELIZABETH Administration Vitamin B Complex/Vitamin C 1 each 06/06/19 10:00 06/14/19 14:53 [place] With C PO 1 each QDAY ELIZABETH Administration Nutrition/Malnutrition Assess - Dietary Evaluation Nutrition/Malnutrition Findings: Nutrition Notes Start: 06/06/19 08:45 Freq: Status: Active Protocol: Document 06/11/19 11:10 LP (Rec: 06/11/19 11:12 LP [id number]) Nutrition Notes Initial or Follow up Reassessment Current Diagnosis Acute Kidney Injury,Decubitus( Pressure Ulcer),Sepsis, Hypertension,Malnutrition Other Pertinent Diagnosis Dementia, GERD, UTI, Metabolic encephalopathy Current Diet Glucerna 1.2 at 65ml/hr Labs/Tests BUN 30 Cr 2 K 3.4 BG 358 Pertinent Medications Reviewed Height 6 ft Weight 49.2 kg Venus Body Weight (kg) 80.90 BMI 14.7 Subjective/Other Information Pt tolerating TF at goal rate. Percent of energy/protein needs met: 100%/100% Burn Absent Trauma Absent #1 Nutrition Diagnosis Malnutrition Diagnosis Progress(for reassessment Continues documentation) Is patient on ventilator? No Is Patient Ambulatory and/or Out of Bed No REE-([facility]-confined to bed) 1571.844 Kcal/Kg value to use for calculation 40 Approximate Energy Requirements Using 1968 kcal/Kg Calculation Used for Recommendations Kcal/kg Additional Notes Pro needs 1.2-1.5g/k-74g/ day Fluid needs 1ml/kcal Nutrition Intervention Change Diet Order: TF Nutrition Support: Glucerna 1.2 at 65ml/hr with 100ml water flush q4h Kcal 1,872 Protein (gm) 94 Fluid (mL) 1,256 Goal #1 Meet at least 80% of kcal and protein needs via TF Goal #2 Wt maintenance and/or gain Anticipated Discharge Needs: Unable to determine at this time Follow-Up By: 06/17/19 Additional Comments Follow for TF tolerance
[2019-06-15] MEDS: KIONEX PO SCH ×3 (08:53→20:17)
[2019-06-15] MEDS: QUESTRAN PO SCH ×3 (09:06→20:18)
[2019-06-15] MEDS: SODIUM CHLORIDE FLUSH SYRINGE 10 ML IV SCH ×2 (09:33→22:27)
[2019-06-15] MEDS: PEPCID PO SCH (09:38)
[2019-06-15] MEDS: PROSCAR PO SCH (09:38)
[2019-06-15] MEDS: BABY ASPIRIN PO SCH (09:38)
[2019-06-15] MEDS: HEPARIN SUB-Q SCH (09:38)
[2019-06-15] MEDS: FLOMAX PO SCH (09:38)
--- NOTE | 2019-06-15 09:38 | Progress Note ---
Assessment and Plan Sepsis with septic shock / UTI due to ESBL klebsiella pneumonia / New right sided pneumonia ID Physician following. Blood cultures negative thus far. T max 101.7 on 06/14. Pt hypotensive requiring vaso and levophed gtts. Can consider dobutamine if pt remains hypotensive despite current management. Acute metabolic encephalopathy Head CT with NAF, brain MRI with NAF. S/p neurology evaluation. Acute respiratory failure Intubated. Pulmonary following. Acute kidney injury on CKD / Hyperkalemia Nephrology following. Sinus bradycardia --> Sinus tachycardia Pt initially had sinus bradycardia with HR low in 40s, no pauses or AVB, thyroid profile WNL, home medication regimen included lopressor 12.5mg BID. Bradycardia currently resolved, now with sinus tachycardia which is likely physiologic secondary to septic shock, respiratory failure, renal insufficiency, dehydration, etc. Cont supportive measures and observation on telemetry. Cardiomyopathy - EF 25-30% Echo done 05/19/2019 showed EF 25-30%, pericardium thickened and calcified, LV mild to mod dilated, mild to mod LVH, LA mildly dilated, trace MR, trace TR. Pt was recommended stress test to r/o ischemic CMP at that time but pt refused stress test. No current clinical evidence of acutely decompensated HF. Pt receiving IVF in setting of sepsis and renal insufficiency. Monitor closely for s/s volume overload. No BB or ACEI/ARB at this time in setting of hypotension and renal insufficiency. Anemia / thrombocytopenia Monitor CBC. Hold ASA at this time. DM with hyperglycemia Dementia Severe malnutrition BMI 14.7 s/p PEG tube placement 06/09/2019 Overall prognosis is poor. Continue current management. The patient has been seen in conjunction with Dr. Messer who agrees with the assessment and plan of care. Subjective Date of service: 06/15/19 Principal diagnosis: Ac hypoxemic resp failure; Septic shock; PAPITO; Thrombocytopenia; HFrEF Interval history: pt remains intubated, unresponsive, not on sedation. requiring vaso and levophed gtts. in ST with HR 110s, no bradycardia noted overnight. no family at bedside. Objective Last Vital Signs Temp 98.2 F 06/15/19 08:00 Pulse 117 H 06/15/19 08:10 Resp 30 H 06/15/19 08:10 BP 114/70 06/15/19 08:10 Pulse Ox 98 06/15/19 08:10 - Physical Examination General: Other (patient is intubated on ventilator.) Neck: Positive: neck supple, trachea midline Cardiac: Positive: Regular Rhythm, S1/S2, Tachycardia Lungs: Positive: Ventilated Respirations Neuro: Positive: Other ( patient is intubated. Nonresponsive) Abdomen: Positive: Soft Skin: Negative: Rash Musculoskeletal: No Pain Extremities: Present: Other (patient has a dressing on the leg.). Absent: edema - Labs and Meds CBC 06/15/19 Range/Units 04:30 WBC 10.7 (4.5-11.0) K/mm3 RBC 3.57 L (3.65-5.03) M/mm3 Hgb 10.1 L (11.8-15.2) gm/dl Hct 30.7 L (35.5-45.6) % Plt Count 90 L (140-440) K/mm3 Comprehensive Metabolic Panel 06/15/19 Range/Units 04:30 Sodium 140 (137-145) mmol/L Potassium 5.7 H D (3.6-5.0) mmol/L Chloride 104.7 (98-107) mmol/L Carbon Dioxide 14 L (22-30) mmol/L BUN 47 H (9-20) mg/dL Creatinine 3.4 H D (0.8-1.5) mg/dL Glucose 383 H (75-100) mg/dL Calcium 7.5 L D (8.4-10.2) mg/dL - Imaging and Cardiology EKG: report reviewed, image reviewed Echo: report reviewed ( 05/19/2019 showed EF 25-30%, pericardium thickened and calcified, LV mild to mod dilated, mild to mod LVH, LA mildly dilated, trace MR, trace TR. ) - Telemetry EKG Rhythm: Sinus Tachycardia - EKG Sinus rhythms and dysrhythmias: sinus bradycardia - Allied health notes Allied health notes reviewed: nursing
[2019-06-15] MEDS: FERGON PO SCH ×2 (09:39→22:26)
[2019-06-15] MEDS: ALLBEE WITH C PO SCH (09:39)
[2019-06-15] MEDS ORDERED: LANTUS SUB-Q SCH (12:00)
[2019-06-15] MEDS ORDERED: LACTATED RINGERS 1,000 ML IV SCH (12:00)
[2019-06-15] MEDS: Vasostrict 20 UNIT in NACL 0.9% 100 ML IV SCH ×2 (12:13→22:27)
--- NOTE | 2019-06-15 12:29 | Progress Note ---
Assessment and Plan Acute hypoxemic respiratory failure on MVS Severe Sepsis with shock Acute metabolic encephalopathy Acute renal failure Severe protein calorie malnutrition Sinus Bradycardia Thrombocytopenia Cardiomyopathy EF 25% Metabolic acidosis, probably secondary to sepsis and renal failure Leucopenia - hyperventilate acutely to compensate for severe metabolic acidosis - avoid hyperglycemia Sterile water with 3 amps bicarbonate per liter started @ 150 mls/hr - aggressive volume resuscitation while septic keeping HFrEF in mind (EF 25%), base excess is -12 Give one bolus of LR, ABG and lactic acid levels at 5pm. - discontinue femoral CVL and place PICC line - Wean supplemental oxygen to keep O2 sats>90% - VAP bundle addressed - continue bronchodilators with pulmonary hygiene per RT - continue lung protective strategies - continue enteric nutrition via PEG at goal rate as tolerated -Aspiration precautions, HOB >40 - continue anti-infective's per ID rec's (de-escalate based on clinical and microbiologic data) - discontinue heparin for VTE prophylaxis, has thrombocytopenia, use SCDs for now while montoring platelet counts - continue to monitor for bleeding - continue mobility protocols to prevent pressure ulcers - Cardio-protective measures - continue to avoid nephrotoxins, adjust all medications for GFR, CrcL - Azotemia per nephrology team - wean vasopressors to keep MAP > 65 mmHg - on vasopressin and norepinephrine - continue chronic disease med's per attending - daily SAT's and SBT assessment as tolerated - Titrate sedation to RASS 0 to -1 - continue accuchecks with glycemic control per SSI for target blood glucose 140 - 180 mg/dL acutely - Agitation management - Prevention of delirium, maintenance of sleep-wake cycle - Stress ulcer prophylaxis - continue other care per attending / other consultants .... re-evaluate in am & prn CONDITION: CRITICAL PROGNOSIS: GUARDED CODE STATUS: FULL The high probability of a clinically significant, sudden or life-threatening deterioration of the [respiratory, renal and cardiac] system(s) required my full and direct attention, intervention and personal management. The aggregate critical care time was [35] minutes without overlap. Time includes spent on; [x] Data Review and interpretation [x] Patient assessment and monitoring of vital signs [x] Documentation [x] Medication orders and management Subjective Date of service: 06/15/19 Principal diagnosis: Ac hypoxemic resp failure; Septic shock; PAPITO; Thrombocytopenia; HFrEF Interval history: Patient is seen today for: Acute hypoxemic respiratory failure; Severe sepsis w ith shock; Acute metabolic encephalopathy; Acute renal failure; Severe protein calorie malnutrition; Sinus Bradycardia; Thrombocytopenia; Cardiomyopathy EF 25%; Metabolic acidosis; Leucopenia Seen and examined at bedside; 24hour events reviewed; nursing and respiratory care staff consulted; no adverse overnight events reported to me; on mechanical ventilatory support, awake and alert, on vasopressors- norepinephrine, vasopressin, no documented fevers, no vomiting, tolerating tube feeding at goal, right femoral CVC Objective Vital Signs - 12hr 06/15/19 06/15/19 06/15/19 00:30 00:39 00:41 Temperature Pulse Rate 107 H 107 H 107 H Pulse Rate [ Anterior Bilateral Throughout] Pulse Rate [ From Monitor] Respiratory 20 30 H Rate Respiratory Rate [Anterior Bilateral Throughout] Blood Pressure 118/72 118/72 118/72 O2 Sat by Pulse 99 99 99 Oximetry 06/15/19 06/15/19 06/15/19 00:51 01:00 01:11 Temperature Pulse Rate 109 H 108 H 111 H Pulse Rate [ Anterior Bilateral Throughout] Pulse Rate [ From Monitor] Respiratory 30 H 30 H 30 H Rate Respiratory Rate [Anterior Bilateral Throughout] Blood Pressure 115/75 126/75 126/75 O2 Sat by Pulse 98 98 98 Oximetry 06/15/19 06/15/19 06/15/19 01:21 01:25 01:30 Temperature Pulse Rate 107 H 109 H Pulse Rate [ 112 H Anterior Bilateral Throughout] Pulse Rate [ From Monitor] Respiratory 23 30 H Rate Respiratory 30 H Rate [Anterior Bilateral Throughout] Blood Pressure 130/76 134/77 O2 Sat by Pulse 98 98 Oximetry 06/15/19 06/15/19 06/15/19 01:41 01:51 02:01 Temperature Pulse Rate 115 H 114 H 102 H Pulse Rate [ Anterior Bilateral Throughout] Pulse Rate [ From Monitor] Respiratory 30 H 30 H 32 H Rate Respiratory Rate [Anterior Bilateral Throughout] Blood Pressure 134/77 131/76 72/35 O2 Sat by Pulse 98 98 91 Oximetry 06/15/19 06/15/19 06/15/19 02:11 02:21 02:30 Temperature Pulse Rate 117 H 114 H 114 H Pulse Rate [ Anterior Bilateral Throughout] Pulse Rate [ From Monitor] Respiratory 13 30 H 27 H Rate Respiratory Rate [Anterior Bilateral Throughout] Blood Pressure 93/56 111/66 96/65 O2 Sat by Pulse 97 100 97 Oximetry 06/15/19 06/15/19 06/15/19 02:41 02:51 03:00 Temperature Pulse Rate 115 H 116 H 116 H Pulse Rate [ Anterior Bilateral Throughout] Pulse Rate [ From Monitor] Respiratory 31 H 20 24 Rate Respiratory Rate [Anterior Bilateral Throughout] Blood Pressure 96/65 106/59 114/67 O2 Sat by Pulse 97 98 99 Oximetry 06/15/19 06/15/19 06/15/19 03:11 03:21 03:30 Temperature Pulse Rate 116 H 117 H 114 H Pulse Rate [ Anterior Bilateral Throughout] Pulse Rate [ From Monitor] Respiratory 31 H 28 H 30 H Rate Respiratory Rate [Anterior Bilateral Throughout] Blood Pressure 114/67 110/62 104/63 O2 Sat by Pulse 98 98 99 Oximetry 06/15/19 06/15/19 06/15/19 03:41 03:51 04:00 Temperature 97.8 F Pulse Rate 114 H 116 H 114 H Pulse Rate [ Anterior Bilateral Throughout] Pulse Rate [ From Monitor] Respiratory 30 H 31 H 30 H Rate Respiratory Rate [Anterior Bilateral Throughout] Blood Pressure 104/63 114/59 110/63 O2 Sat by Pulse 98 98 98 Oximetry 06/15/19 06/15/19 06/15/19 04:11 04:21 04:31 Temperature Pulse Rate 117 H 116 H 109 H Pulse Rate [ Anterior Bilateral Throughout] Pulse Rate [ From Monitor] Respiratory 20 30 H 19 Rate Respiratory Rate [Anterior Bilateral Throughout] Blood Pressure 110/63 104/63 104/63 O2 Sat by Pulse 99 98 78 L Oximetry 06/15/19 06/15/19 06/15/19 04:41 04:51 05:00 Temperature Pulse Rate 115 H 123 H 118 H Pulse Rate [ Anterior Bilateral Throughout] Pulse Rate [ From Monitor] Respiratory 27 H 19 16 Rate Respiratory Rate [Anterior Bilateral Throughout] Blood Pressure 123/55 132/71 133/75 O2 Sat by Pulse 98 98 96 Oximetry 06/15/19 06/15/19 06/15/19 05:10 05:20 05:30 Temperature Pulse Rate 119 H 120 H 119 H Pulse Rate [ Anterior Bilateral Throughout] Pulse Rate [ From Monitor] Respiratory 16 17 20 Rate Respiratory Rate [Anterior Bilateral Throughout] Blood Pressure 133/75 98/65 O2 Sat by Pulse 97 96 96 Oximetry 06/15/19 06/15/19 06/15/19 05:40 05:50 06:00 Temperature Pulse Rate 115 H 116 H 115 H Pulse Rate [ 117 H Anterior Bilateral Throughout] Pulse Rate [ From Monitor] Respiratory 25 H 20 22 Rate Respiratory 30 H Rate [Anterior Bilateral Throughout] Blood Pressure 98/65 90/55 92/65 O2 Sat by Pulse 96 97 96 Oximetry 06/15/19 06/15/19 06/15/19 06:10 06:20 06:30 Temperature Pulse Rate 116 H 120 H 118 H Pulse Rate [ Anterior Bilateral Throughout] Pulse Rate [ From Monitor] Respiratory 30 H 30 H 31 H Rate Respiratory Rate [Anterior Bilateral Throughout] Blood Pressure 98/65 83/63 102/67 O2 Sat by Pulse 97 98 97 Oximetry 06/15/19 06/15/19 06/15/19 06:40 06:50 07:00 Temperature Pulse Rate 114 H 121 H 120 H Pulse Rate [ Anterior Bilateral Throughout] Pulse Rate [ From Monitor] Respiratory 30 H 30 H 30 H Rate Respiratory Rate [Anterior Bilateral Throughout] Blood Pressure 102/67 107/72 107/71 O2 Sat by Pulse 97 97 98 Oximetry 06/15/19 06/15/19 06/15/19 07:10 07:20 07:30 Temperature Pulse Rate 122 H 121 H 122 H Pulse Rate [ Anterior Bilateral Throughout] Pulse Rate [ From Monitor] Respiratory 29 H 30 H 30 H Rate Respiratory Rate [Anterior Bilateral Throughout] Blood Pressure 107/72 101/66 104/71 O2 Sat by Pulse 98 97 97 Oximetry 06/15/19 06/15/19 06/15/19 07:32 07:40 07:50 Temperature Pulse Rate 120 H 118 H 117 H Pulse Rate [ Anterior Bilateral Throughout] Pulse Rate [ From Monitor] Respiratory 26 H 27 H Rate Respiratory Rate [Anterior Bilateral Throughout] Blood Pressure 104/71 104/71 114/69 O2 Sat by Pulse 98 99 99 Oximetry 06/15/19 06/15/19 06/15/19 08:00 08:10 08:20 Temperature 98.2 F Pulse Rate 118 H 117 H 115 H Pulse Rate [ Anterior Bilateral Throughout] Pulse Rate [ 115 H From Monitor] Respiratory 30 H 30 H 30 H Rate Respiratory Rate [Anterior Bilateral Throughout] Blood Pressure 114/70 114/70 113/69 O2 Sat by Pulse 98 98 97 Oximetry 06/15/19 06/15/19 06/15/19 08:30 08:40 08:50 Temperature Pulse Rate 116 H 117 H 117 H Pulse Rate [ Anterior Bilateral Throughout] Pulse Rate [ From Monitor] Respiratory 30 H 30 H 30 H Rate Respiratory Rate [Anterior Bilateral Throughout] Blood Pressure 107/68 113/69 117/71 O2 Sat by Pulse 98 99 97 Oximetry 06/15/19 06/15/19 06/15/19 09:00 09:10 09:20 Temperature Pulse Rate 111 H 111 H 117 H Pulse Rate [ Anterior Bilateral Throughout] Pulse Rate [ From Monitor] Respiratory 30 H 30 H 30 H Rate Respiratory Rate [Anterior Bilateral Throughout] Blood Pressure 75/47 75/47 89/57 O2 Sat by Pulse 95 96 95 Oximetry 06/15/19 06/15/19 06/15/19 09:30 09:40 09:50 Temperature Pulse Rate 119 H 119 H 121 H Pulse Rate [ Anterior Bilateral Throughout] Pulse Rate [ From Monitor] Respiratory 22 16 16 Rate Respiratory Rate [Anterior Bilateral Throughout] Blood Pressure 107/67 107/67 108/75 O2 Sat by Pulse 96 98 96 Oximetry 06/15/19 06/15/19 06/15/19 10:00 10:10 10:20 Temperature Pulse Rate 123 H 125 H 115 H Pulse Rate [ Anterior Bilateral Throughout] Pulse Rate [ From Monitor] Respiratory 23 17 15 Rate Respiratory Rate [Anterior Bilateral Throughout] Blood Pressure 104/68 104/68 124/66 O2 Sat by Pulse 94 94 Oximetry 06/15/19 06/15/19 06/15/19 10:30 10:40 10:50 Temperature Pulse Rate 113 H 114 H 114 H Pulse Rate [ Anterior Bilateral Throughout] Pulse Rate [ From Monitor] Respiratory 18 15 14 Rate Respiratory Rate [Anterior Bilateral Throughout] Blood Pressure 99/59 99/59 113/65 O2 Sat by Pulse 96 96 97 Oximetry 06/15/19 06/15/19 06/15/19 11:00 11:10 11:20 Temperature Pulse Rate 113 H 111 H 108 H Pulse Rate [ Anterior Bilateral Throughout] Pulse Rate [ From Monitor] Respiratory 15 15 30 H Rate Respiratory Rate [Anterior Bilateral Throughout] Blood Pressure 113/68 113/68 122/68 O2 Sat by Pulse 97 97 96 Oximetry 06/15/19 06/15/19 06/15/19 11:27 11:30 11:40 Temperature Pulse Rate 109 H 109 H 110 H Pulse Rate [ Anterior Bilateral Throughout] Pulse Rate [ From Monitor] Respiratory 30 H 30 H Rate Respiratory Rate [Anterior Bilateral Throughout] Blood Pressure 122/68 129/69 129/69 O2 Sat by Pulse 96 96 97 Oximetry 06/15/19 06/15/19 06/15/19 11:50 12:00 12:10 Temperature Pulse Rate 111 H 115 H 114 H Pulse Rate [ Anterior Bilateral Throughout] Pulse Rate [ From Monitor] Respiratory 30 H 21 25 H Rate Respiratory Rate [Anterior Bilateral Throughout] Blood Pressure 130/69 141/77 141/77 O2 Sat by Pulse 97 96 96 Oximetry 06/15/19 12:20 Temperature Pulse Rate 109 H Pulse Rate [ Anterior Bilateral Throughout] Pulse Rate [ From Monitor] Respiratory 23 Rate Respiratory Rate [Anterior Bilateral Throughout] Blood Pressure 130/69 O2 Sat by Pulse 97 Oximetry Constitutional: lethargic, other (elderly looking, emaciated AAM, normocephalic and atraumatic with increased respiratory effort at rest) Eyes: non-icteric ENT: oropharynx moist, other (ETT 23 cm GLORIA) Neck: supple, no lymphadenopathy, no JVD Effort: mildly labored Ascultation: Bilateral: diminished breath sounds, rales Percussion: Bilateral: not dull Cardiovascular: regular rate and rhythm, other (tachycardia) Gastrointestinal: normoactive bowel sounds, soft, non-tender, non-distended Integumentary: rash, decubitus ulcer Extremities: no cyanosis, no edema, pulses normal, no ischemia or petechiae, other (left tibial IO device) Neurologic: other (awake and alert, not obeying commands) Psychiatric: other (Unable to assess re AMS) CBC and BMP: 06/15/19 04:30 06/15/19 04:30 ABG, PT/INR, D-dimer: ABG POC ABG pH 7.412 (7.35-7.45) 06/15/19 04:44 POC ABG pO2 83 (80-105) 06/15/19 04:44 POC ABG HCO3 12.4 (22-26 mml/L) 06/15/19 04:44 POC ABG Total CO2 13 (23-27mmol/L) 06/15/19 04:44 POC ABG O2 Sat 97 06/15/19 04:44 Abnormal lab findings: Abnormal Labs 06/05/19 06/05/19 06/05/19 10:24 11:11 11:11 WBC RBC Hgb 11.2 L Hct 33.2 L RDW 17.3 H Plt Count Tripp % (Auto) Lymph # 0.9 L Seg Neutrophils % 76.0 H Seg Neutrophils # APTT 37.7 H POC ABG pH POC ABG pCO2 POC ABG pO2 Sodium Potassium Chloride Carbon Dioxide BUN Creatinine Glucose POC Glucose 125 H Hemoglobin A1c Lactic Acid Calcium Phosphorus Magnesium AST Alkaline Phosphatase Total Creatine Kinase CK-MB (CK-2) CK-MB (CK-2) Rel Index Troponin T C-Reactive Protein Total Protein Albumin HDL Cholesterol Urine WBC (Auto) Urine Creatinine 06/05/19 06/05/19 06/05/19 11:11 11:11 11:36 WBC RBC Hgb Hct RDW Plt Count Tripp % (Auto) Lymph # Seg Neutrophils % Seg Neutrophils # APTT POC ABG pH POC ABG pCO2 POC ABG pO2 Sodium 147 H Potassium Chloride 115.9 H Carbon Dioxide 18 L BUN 45 H Creatinine 2.4 H Glucose 118 H POC Glucose 109 H Hemoglobin A1c Lactic Acid 0.50 L Calcium Phosphorus Magnesium AST Alkaline Phosphatase 147 H Total Creatine Kinase CK-MB (CK-2) CK-MB (CK-2) Rel Index Troponin T 0.047 H C-Reactive Protein Total Protein Albumin 3.5 L HDL Cholesterol 115 H Urine WBC (Auto) Urine Creatinine 06/05/19 06/05/19 06/05/19 13:21 14:03 16:16 WBC RBC Hgb Hct RDW Plt Count Tripp % (Auto) Lymph # Seg Neutrophils % Seg Neutrophils # APTT POC ABG pH POC ABG pCO2 POC ABG pO2 Sodium Potassium Chloride Carbon Dioxide BUN Creatinine Glucose POC Glucose 56 L Hemoglobin A1c Lactic Acid 0.50 L Calcium Phosphorus Magnesium AST Alkaline Phosphatase Total Creatine Kinase CK-MB (CK-2) CK-MB (CK-2) Rel Index Troponin T C-Reactive Protein Total Protein Albumin HDL Cholesterol Urine WBC (Auto) 14.0 H Urine Creatinine 06/05/19 06/05/19 06/05/19 18:52 19:38 20:07 WBC RBC Hgb Hct RDW Plt Count Tripp % (Auto) Lymph # Seg Neutrophils % Seg Neutrophils # APTT POC ABG pH POC ABG pCO2 POC ABG pO2 Sodium Potassium Chloride Carbon Dioxide BUN Creatinine Glucose 128 H POC Glucose < 40 L 140 H Hemoglobin A1c Lactic Acid Calcium Phosphorus Magnesium AST Alkaline Phosphatase Total Creatine Kinase CK-MB (CK-2) CK-MB (CK-2) Rel Index Troponin T C-Reactive Protein Total Protein Albumin HDL Cholesterol Urine WBC (Auto) Urine Creatinine 06/05/19 06/06/19 06/06/19 21:46 02:06 04:22 WBC RBC Hgb Hct RDW 18.1 H Plt Count Tripp % (Auto) Lymph # Seg Neutrophils % 71.8 H Seg Neutrophils # APTT POC ABG pH POC ABG pCO2 POC ABG pO2 Sodium Potassium Chloride Carbon Dioxide BUN Creatinine Glucose POC Glucose 141 H 213 H Hemoglobin A1c Lactic Acid Calcium Phosphorus Magnesium AST Alkaline Phosphatase Total Creatine Kinase CK-MB (CK-2) CK-MB (CK-2) Rel Index Troponin T C-Reactive Protein Total Protein Albumin HDL Cholesterol Urine WBC (Auto) Urine Creatinine 06/06/19 06/06/19 06/06/19 04:22 05:20 07:42 WBC RBC Hgb Hct RDW Plt Count Tripp % (Auto) Lymph # Seg Neutrophils % Seg Neutrophils # APTT POC ABG pH POC ABG pCO2 POC ABG pO2 Sodium Potassium 5.1 H Chloride 112.2 H Carbon Dioxide 13 L BUN 44 H Creatinine 2.3 H Glucose 182 H POC Glucose 237 H 247 H Hemoglobin A1c Lactic Acid Calcium Phosphorus Magnesium 2.60 H AST 45 H Alkaline Phosphatase 164 H Total Creatine Kinase CK-MB (CK-2) CK-MB (CK-2) Rel Index Troponin T C-Reactive Protein Total Protein Albumin 3.5 L HDL Cholesterol Urine WBC (Auto) Urine Creatinine 06/06/19 06/06/19 06/06/19 10:48 13:19 17:34 WBC RBC Hgb Hct RDW Plt Count Tripp % (Auto) Lymph # Seg Neutrophils % Seg Neutrophils # APTT POC ABG pH POC ABG pCO2 POC ABG pO2 Sodium Potassium Chloride Carbon Dioxide BUN Creatinine Glucose POC Glucose 167 H 108 H < 40 L Hemoglobin A1c Lactic Acid Calcium Phosphorus Magnesium AST Alkaline Phosphatase Total Creatine Kinase CK-MB (CK-2) CK-MB (CK-2) Rel Index Troponin T C-Reactive Protein Total Protein Albumin HDL Cholesterol Urine WBC (Auto) Urine Creatinine 06/06/19 06/06/19 06/06/19 17:37 18:10 20:50 WBC RBC Hgb Hct RDW Plt Count Tripp % (Auto) Lymph # Seg Neutrophils % Seg Neutrophils # APTT POC ABG pH POC ABG pCO2 POC ABG pO2 Sodium Potassium Chloride Carbon Dioxide BUN Creatinine Glucose 71 L POC Glucose 227 H Hemoglobin A1c Lactic Acid Calcium Phosphorus Magnesium AST Alkaline Phosphatase Total Creatine Kinase CK-MB (CK-2) CK-MB (CK-2) Rel Index Troponin T C-Reactive Protein Total Protein Albumin HDL Cholesterol Urine WBC (Auto) Urine Creatinine 102.7 H 06/07/19 06/07/19 06/07/19 02:36 05:40 07:59 WBC RBC Hgb Hct RDW Plt Count Tripp % (Auto) Lymph # Seg Neutrophils % Seg Neutrophils # APTT POC ABG pH POC ABG pCO2 POC ABG pO2 Sodium Potassium Chloride Carbon Dioxide BUN Creatinine Glucose POC Glucose 144 H 183 H 207 H Hemoglobin A1c Lactic Acid Calcium Phosphorus Magnesium AST Alkaline Phosphatase Total Creatine Kinase CK-MB (CK-2) CK-MB (CK-2) Rel Index Troponin T C-Reactive Protein Total Protein Albumin HDL Cholesterol Urine WBC (Auto) Urine Creatinine 06/07/19 06/07/19 06/07/19 11:40 14:35 15:12 WBC RBC Hgb Hct RDW Plt Count Tripp % (Auto) Lymph # Seg Neutrophils % Seg Neutrophils # APTT POC ABG pH POC ABG pCO2 POC ABG pO2 Sodium Potassium Chloride Carbon Dioxide BUN 40 H Creatinine 2.2 H Glucose 154 H POC Glucose 160 H 164 H Hemoglobin A1c Lactic Acid Calcium Phosphorus Magnesium AST Alkaline Phosphatase Total Creatine Kinase CK-MB (CK-2) CK-MB (CK-2) Rel Index Troponin T C-Reactive Protein Total Protein Albumin HDL Cholesterol Urine WBC (Auto) Urine Creatinine 06/07/19 06/07/19 06/08/19 16:35 21:43 02:00 WBC RBC Hgb Hct RDW Plt Count Tripp % (Auto) Lymph # Seg Neutrophils % Seg Neutrophils # APTT POC ABG pH POC ABG pCO2 POC ABG pO2 Sodium Potassium Chloride Carbon Dioxide BUN Creatinine Glucose POC Glucose 181 H 62 L 126 H Hemoglobin A1c Lactic Acid Calcium Phosphorus Magnesium AST Alkaline Phosphatase Total Creatine Kinase CK-MB (CK-2) CK-MB (CK-2) Rel Index Troponin T C-Reactive Protein Total Protein Albumin HDL Cholesterol Urine WBC (Auto) Urine Creatinine 06/08/19 06/08/19 06/08/19 05:46 05:55 05:55 WBC 3.1 L RBC Hgb 10.8 L Hct 31.6 L D RDW 16.8 H Plt Count Tripp % (Auto) 14.3 H Lymph # 0.9 L Seg Neutrophils % Seg Neutrophils # 1.6 L APTT POC ABG pH POC ABG pCO2 POC ABG pO2 Sodium Potassium Chloride Carbon Dioxide 21 L BUN 38 H Creatinine 2.2 H Glucose 167 H POC Glucose 147 H Hemoglobin A1c Lactic Acid Calcium Phosphorus Magnesium AST Alkaline Phosphatase 130 H Total Creatine Kinase CK-MB (CK-2) CK-MB (CK-2) Rel Index Troponin T C-Reactive Protein Total Protein 6.2 L Albumin 3.0 L HDL Cholesterol Urine WBC (Auto) Urine Creatinine 06/08/19 06/08/19 06/08/19 07:48 17:49 21:47 WBC RBC Hgb Hct RDW Plt Count Tripp % (Auto) Lymph # Seg Neutrophils % Seg Neutrophils # APTT POC ABG pH POC ABG pCO2 POC ABG pO2 Sodium Potassium Chloride Carbon Dioxide BUN Creatinine Glucose POC Glucose 179 H 127 H 161 H Hemoglobin A1c Lactic Acid Calcium Phosphorus Magnesium AST Alkaline Phosphatase Total Creatine Kinase CK-MB (CK-2) CK-MB (CK-2) Rel Index Troponin T C-Reactive Protein Total Protein Albumin HDL Cholesterol Urine WBC (Auto) Urine Creatinine 06/08/19 06/09/19 06/09/19 22:14 03:12 04:34 WBC RBC Hgb Hct RDW Plt Count Tripp % (Auto) Lymph # Seg Neutrophils % Seg Neutrophils # APTT POC ABG pH POC ABG pCO2 POC ABG pO2 Sodium Potassium Chloride Carbon Dioxide BUN Creatinine Glucose POC Glucose 59 L 163 H Hemoglobin A1c 10.8 H Lactic Acid Calcium Phosphorus Magnesium AST Alkaline Phosphatase Total Creatine Kinase CK-MB (CK-2) CK-MB (CK-2) Rel Index Troponin T C-Reactive Protein Total Protein Albumin HDL Cholesterol Urine WBC (Auto) Urine Creatinine 06/09/19 06/09/19 06/09/19 05:02 07:39 08:34 WBC 3.1 L RBC Hgb 10.6 L Hct 31.7 L RDW 17.0 H Plt Count Tripp % (Auto) 13.8 H Lymph # 1.0 L Seg Neutrophils % Seg Neutrophils # 1.5 L APTT POC ABG pH POC ABG pCO2 POC ABG pO2 Sodium Potassium Chloride Carbon Dioxide BUN 37 H Creatinine 2.0 H Glucose 176 H POC Glucose 206 H Hemoglobin A1c Lactic Acid Calcium Phosphorus Magnesium AST Alkaline Phosphatase Total Creatine Kinase CK-MB (CK-2) CK-MB (CK-2) Rel Index Troponin T C-Reactive Protein Total Protein 5.8 L Albumin 2.8 L HDL Cholesterol Urine WBC (Auto) Urine Creatinine 06/09/19 06/09/19 06/10/19 17:55 21:36 05:20 WBC RBC Hgb Hct RDW Plt Count Tripp % (Auto) Lymph # Seg Neutrophils % Seg Neutrophils # APTT POC ABG pH POC ABG pCO2 POC ABG pO2 Sodium Potassium 3.3 L Chloride Carbon Dioxide BUN 34 H Creatinine 2.0 H Glucose 212 H POC Glucose 265 H 132 H Hemoglobin A1c Lactic Acid Calcium Phosphorus Magnesium AST Alkaline Phosphatase Total Creatine Kinase CK-MB (CK-2) CK-MB (CK-2) Rel Index Troponin T C-Reactive Protein Total Protein Albumin HDL Cholesterol Urine WBC (Auto) Urine Creatinine 06/10/19 06/10/19 06/10/19 05:20 07:00 11:48 WBC 4.4 L RBC 3.47 L Hgb 10.0 L Hct 29.6 L RDW 16.9 H Plt Count Tripp % (Auto) Lymph # Seg Neutrophils % Seg Neutrophils # APTT POC ABG pH POC ABG pCO2 POC ABG pO2 Sodium Potassium Chloride Carbon Dioxide BUN Creatinine Glucose POC Glucose 249 H 279 H Hemoglobin A1c Lactic Acid Calcium Phosphorus Magnesium AST Alkaline Phosphatase Total Creatine Kinase CK-MB (CK-2) CK-MB (CK-2) Rel Index Troponin T C-Reactive Protein Total Protein Albumin HDL Cholesterol Urine WBC (Auto) Urine Creatinine 06/10/19 06/10/19 06/10/19 18:25 21:50 23:22 WBC RBC Hgb Hct RDW Plt Count Tripp % (Auto) Lymph # Seg Neutrophils % Seg Neutrophils # APTT POC ABG pH POC ABG pCO2 POC ABG pO2 Sodium Potassium Chloride Carbon Dioxide BUN Creatinine Glucose POC Glucose 157 H 58 L 124 H Hemoglobin A1c Lactic Acid Calcium Phosphorus Magnesium AST Alkaline Phosphatase Total Creatine Kinase CK-MB (CK-2) CK-MB (CK-2) Rel Index Troponin T C-Reactive Protein Total Protein Albumin HDL Cholesterol Urine WBC (Auto) Urine Creatinine 06/11/19 06/11/19 06/11/19 05:15 06:48 11:52 WBC RBC Hgb Hct RDW Plt Count Tripp % (Auto) Lymph # Seg Neutrophils % Seg Neutrophils # APTT POC ABG pH POC ABG pCO2 POC ABG pO2 Sodium Potassium 3.4 L Chloride 108.1 H Carbon Dioxide BUN 30 H Creatinine 2.0 H Glucose 358 H POC Glucose 441 H 339 H Hemoglobin A1c Lactic Acid Calcium Phosphorus Magnesium AST Alkaline Phosphatase Total Creatine Kinase CK-MB (CK-2) CK-MB (CK-2) Rel Index Troponin T C-Reactive Protein Total Protein Albumin HDL Cholesterol Urine WBC (Auto) Urine Creatinine 06/11/19 06/11/19 06/12/19 17:41 23:52 05:38 WBC RBC Hgb Hct RDW Plt Count Tripp % (Auto) Lymph # Seg Neutrophils % Seg Neutrophils # APTT POC ABG pH POC ABG pCO2 POC ABG pO2 Sodium Potassium Chloride 115.2 H Carbon Dioxide 18 L BUN 32 H Creatinine 2.0 H Glucose 164 H POC Glucose 311 H 119 H Hemoglobin A1c Lactic Acid Calcium Phosphorus 1.30 L Magnesium AST Alkaline Phosphatase Total Creatine Kinase CK-MB (CK-2) CK-MB (CK-2) Rel Index Troponin T C-Reactive Protein Total Protein Albumin HDL Cholesterol Urine WBC (Auto) Urine Creatinine 06/12/19 06/12/19 06/12/19 06:41 10:34 11:49 WBC RBC Hgb Hct RDW Plt Count Tripp % (Auto) Lymph # Seg Neutrophils % Seg Neutrophils # APTT POC ABG pH POC ABG pCO2 POC ABG pO2 Sodium Potassium Chloride Carbon Dioxide BUN Creatinine Glucose POC Glucose 178 H 198 H 200 H Hemoglobin A1c Lactic Acid Calcium Phosphorus Magnesium AST Alkaline Phosphatase Total Creatine Kinase CK-MB (CK-2) CK-MB (CK-2) Rel Index Troponin T C-Reactive Protein Total Protein Albumin HDL Cholesterol Urine WBC (Auto) Urine Creatinine 06/12/19 06/12/19 06/13/19 13:30 17:19 04:51 WBC RBC 3.48 L Hgb 10.1 L Hct 30.0 L RDW 18.3 H Plt Count 129 L Tripp % (Auto) Lymph # Seg Neutrophils % Seg Neutrophils # APTT POC ABG pH 7.235 L POC ABG pCO2 POC ABG pO2 200 H Sodium Potassium Chloride Carbon Dioxide BUN Creatinine Glucose POC Glucose 167 H Hemoglobin A1c Lactic Acid Calcium Phosphorus Magnesium AST Alkaline Phosphatase Total Creatine Kinase CK-MB (CK-2) CK-MB (CK-2) Rel Index Troponin T C-Reactive Protein Total Protein Albumin HDL Cholesterol Urine WBC (Auto) Urine Creatinine 06/13/19 06/13/19 06/13/19 04:51 11:45 14:34 WBC RBC Hgb Hct RDW Plt Count Tripp % (Auto) Lymph # Seg Neutrophils % Seg Neutrophils # APTT POC ABG pH 7.184 L POC ABG pCO2 POC ABG pO2 Sodium Potassium Chloride 112.4 H Carbon Dioxide 17 L BUN 36 H Creatinine 2.0 H Glucose 329 H POC Glucose 338 H Hemoglobin A1c Lactic Acid Calcium Phosphorus Magnesium AST Alkaline Phosphatase Total Creatine Kinase CK-MB (CK-2) CK-MB (CK-2) Rel Index Troponin T C-Reactive Protein Total Protein Albumin HDL Cholesterol Urine WBC (Auto) Urine Creatinine 06/13/19 06/13/19 06/13/19 17:39 18:47 20:12 WBC RBC Hgb Hct RDW Plt Count Tripp % (Auto) Lymph # Seg Neutrophils % Seg Neutrophils # APTT POC ABG pH 7.178 L 7.186 L POC ABG pCO2 POC ABG pO2 70 L 74 L Sodium Potassium Chloride Carbon Dioxide BUN Creatinine Glucose POC Glucose Hemoglobin A1c Lactic Acid Calcium Phosphorus Magnesium AST Alkaline Phosphatase Total Creatine Kinase 295 H CK-MB (CK-2) 16.7 H CK-MB (CK-2) Rel Index 5.6 H Troponin T C-Reactive Protein Total Protein Albumin HDL Cholesterol Urine WBC (Auto) Urine Creatinine 06/13/19 06/13/19 06/14/19 21:52 23:52 00:20 WBC RBC Hgb Hct RDW Plt Count Tripp % (Auto) Lymph # Seg Neutrophils % Seg Neutrophils # APTT POC ABG pH POC ABG pCO2 POC ABG pO2 Sodium Potassium Chloride Carbon Dioxide BUN Creatinine Glucose POC Glucose 387 H 321 H Hemoglobin A1c Lactic Acid 4.50 H* Calcium Phosphorus Magnesium AST Alkaline Phosphatase Total Creatine Kinase CK-MB (CK-2) CK-MB (CK-2) Rel Index Troponin T C-Reactive Protein Total Protein Albumin HDL Cholesterol Urine WBC (Auto) Urine Creatinine 06/14/19 06/14/19 06/14/19 01:04 01:38 01:38 WBC 2.7 L RBC Hgb 11.5 L Hct 35.1 L RDW 18.1 H Plt Count Tripp % (Auto) Lymph # Seg Neutrophils % Seg Neutrophils # APTT POC ABG pH 7.259 L POC ABG pCO2 32.8 L POC ABG pO2 79 L Sodium Potassium 3.5 L D Chloride 112.2 H Carbon Dioxide 18 L BUN 39 H Creatinine 2.1 H Glucose 293 H POC Glucose Hemoglobin A1c Lactic Acid Calcium Phosphorus Magnesium AST Alkaline Phosphatase Total Creatine Kinase 195 H CK-MB (CK-2) CK-MB (CK-2) Rel Index Troponin T C-Reactive Protein Total Protein Albumin HDL Cholesterol Urine WBC (Auto) Urine Creatinine 06/14/19 06/14/19 06/14/19 04:55 06:12 08:06 WBC RBC Hgb Hct RDW Plt Count Tripp % (Auto) Lymph # Seg Neutrophils % Seg Neutrophils # APTT POC ABG pH POC ABG pCO2 POC ABG pO2 Sodium Potassium Chloride Carbon Dioxide BUN Creatinine Glucose POC Glucose 233 H Hemoglobin A1c Lactic Acid 4.60 H* 4.70 H* Calcium Phosphorus Magnesium AST Alkaline Phosphatase Total Creatine Kinase CK-MB (CK-2) CK-MB (CK-2) Rel Index Troponin T C-Reactive Protein Total Protein Albumin HDL Cholesterol Urine WBC (Auto) Urine Creatinine 06/14/19 06/14/19 06/14/19 09:02 10:59 11:25 WBC RBC Hgb Hct RDW Plt Count Tripp % (Auto) Lymph # Seg Neutrophils % Seg Neutrophils # APTT POC ABG pH 7.269 L POC ABG pCO2 POC ABG pO2 53 L Sodium Potassium Chloride Carbon Dioxide BUN Creatinine Glucose POC Glucose 121 H Hemoglobin A1c Lactic Acid 5.00 H* Calcium Phosphorus Magnesium AST Alkaline Phosphatase Total Creatine Kinase CK-MB (CK-2) CK-MB (CK-2) Rel Index Troponin T C-Reactive Protein Total Protein Albumin HDL Cholesterol Urine WBC (Auto) Urine Creatinine 06/14/19 06/14/19 06/14/19 12:57 15:21 15:21 WBC RBC Hgb Hct RDW Plt Count Tripp % (Auto) Lymph # Seg Neutrophils % Seg Neutrophils # APTT POC ABG pH 7.306 L POC ABG pCO2 POC ABG pO2 74 L Sodium Potassium Chloride Carbon Dioxide BUN Creatinine Glucose POC Glucose 147 H Hemoglobin A1c Lactic Acid 5.20 H* Calcium Phosphorus Magnesium AST Alkaline Phosphatase Total Creatine Kinase CK-MB (CK-2) CK-MB (CK-2) Rel Index Troponin T C-Reactive Protein Total Protein Albumin HDL Cholesterol Urine WBC (Auto) Urine Creatinine 06/14/19 06/14/19 06/14/19 18:35 18:50 20:43 WBC RBC Hgb Hct RDW Plt Count Tripp % (Auto) Lymph # Seg Neutrophils % Seg Neutrophils # APTT POC ABG pH 7.281 L POC ABG pCO2 POC ABG pO2 Sodium Potassium Chloride Carbon Dioxide BUN Creatinine Glucose POC Glucose 192 H Hemoglobin A1c Lactic Acid Calcium Phosphorus Magnesium AST Alkaline Phosphatase Total Creatine Kinase CK-MB (CK-2) CK-MB (CK-2) Rel Index Troponin T C-Reactive Protein Total Protein Albumin HDL Cholesterol Urine WBC (Auto) > 182.0 H Urine Creatinine 06/15/19 06/15/19 06/15/19 00:20 04:30 04:30 WBC RBC 3.57 L Hgb 10.1 L Hct 30.7 L RDW 18.0 H Plt Count 90 L Tripp % (Auto) Lymph # Seg Neutrophils % Seg Neutrophils # APTT POC ABG pH POC ABG pCO2 POC ABG pO2 Sodium Potassium 5.7 H D Chloride Carbon Dioxide 14 L BUN 47 H Creatinine 3.4 H D Glucose 383 H POC Glucose 334 H Hemoglobin A1c Lactic Acid Calcium 7.5 L D Phosphorus Magnesium AST Alkaline Phosphatase Total Creatine Kinase CK-MB (CK-2) CK-MB (CK-2) Rel Index Troponin T C-Reactive Protein 24.70 H Total Protein Albumin HDL Cholesterol Urine WBC (Auto) Urine Creatinine 06/15/19 06/15/19 06/15/19 04:30 06:24 09:34 WBC RBC Hgb Hct RDW Plt Count Tripp % (Auto) Lymph # Seg Neutrophils % Seg Neutrophils # APTT POC ABG pH POC ABG pCO2 POC ABG pO2 Sodium Potassium Chloride Carbon Dioxide BUN Creatinine Glucose POC Glucose 438 H 413 H Hemoglobin A1c Lactic Acid 8.90 H* Calcium Phosphorus Magnesium AST Alkaline Phosphatase Total Creatine Kinase CK-MB (CK-2) CK-MB (CK-2) Rel Index Troponin T C-Reactive Protein Total Protein Albumin HDL Cholesterol Urine WBC (Auto) Urine Creatinine 06/15/19 06/15/19 09:59 11:49 WBC RBC Hgb Hct RDW Plt Count Tripp % (Auto) Lymph # Seg Neutrophils % Seg Neutrophils # APTT POC ABG pH POC ABG pCO2 POC ABG pO2 Sodium Potassium Chloride Carbon Dioxide BUN Creatinine Glucose POC Glucose 327 H Hemoglobin A1c Lactic Acid 8.20 H* Calcium Phosphorus Magnesium AST Alkaline Phosphatase Total Creatine Kinase CK-MB (CK-2) CK-MB (CK-2) Rel Index Troponin T C-Reactive Protein Total Protein Albumin HDL Cholesterol Urine WBC (Auto) Urine Creatinine Chest x-ray: image reviewed Allied health notes reviewed: nursing
--- NOTE | 2019-06-15 12:34 | Progress Note ---
Assessment and Plan Previous Cultures: 05/19/2019 Blood: no growth 05/19/2019 Urine: ESBL Klebsiella Cultures: 06/05/2019 Urine: ESBL Klebsiella 06/05/2019 Blood: NGTD A/P: 68 yo M PMHx dementia, malnutrition, GERD, HTN admitted with AMS, ESBL UTI. 1) New shock: septic v/s cardiogenic. On 2 pressors. Also with new R sided pneumonia. Initially with severe sepsis secondary to ESBL UTI Renal US - no acute infective processes or stone. L renal cysts. 2) Metabolic encephalopathy: - remains altered, With slight improvement. CT head normal. Brain MRI shows stable chronic encephalomalacia in the left frontal lobe and left cerebellar hemisphere. Verbal defects expected. Neurology following. 3) Dementia 4) GERD 5) Malnutrition - s/p EGD and Peg placement 06/09/19 6) HTN 7) PAPITO v/s CKD: renally dose abx. Recs: - continue vancomycin and renally adjusted meropenem - f/u Bcx and UCx. - poor prognosis D/W Dr. Barone. We will continue to follow with you. We appreciate being involved in Mr. Paulino's care. Aissatou Mccormick MD [facility] C: [phone] O: [phone] F: [phone] Subjective Date of service: 06/15/19 Principal diagnosis: Ac hypoxemic resp failure; Septic shock; PAPITO; Thrombocytopenia; HFrEF Interval history: Not responsive to verbal commands. Per nursing brainstem reflexes present. Objective - Exam Narrative Exam: Constitutional: awake, no distress, doesn't follow commands. Head, Ears, Nose: Normocephalic, atraumatic. External ears, nose normal Eyes: Conjunctivae/corneas clear. No icterus. No ptosis. Neck: Supple, no meningeal signs Oral: Intubated Cardiovascular: S1, S2 normal. Normal rhythm Respiratory: Good air entry, clear to auscultation bilaterally GI: Soft, non-tender; bowel sounds normal. No peritoneal signs Musculoskeletal: No pedal edema Skin: Numerous abrasion and excoriations on all extremities. R thigh bandaged. Hem/Lymphatic: No palpable cervical or supraclavicular nodes. No lymphangitis Psych: no agitation Neurological: Not moving, intubated, not responsive. - Constitutional Vitals: Vital Signs Temp Pulse Resp BP Pulse Ox 98.2 F 109 H 23 130/69 97 06/15/19 08:00 06/15/19 12:20 06/15/19 12:20 06/15/19 12:20 06/15/19 12:20 Temperature -Last 24 Hours Temperature 98.2 F Temperature 97.8 F Temperature 97.8 F Temperature 98.3 F Temperature 98.3 F Temperature 97.4 F Temperature 101.7 F - Labs CBC & Chem 7: 06/15/19 04:30 06/15/19 04:30 Labs: Abnormal lab results 06/14/19 06/14/19 06/14/19 Range/Units 10:59 12:57 15:21 RBC (3.65-5.03) M/mm3 Hgb (11.8-15.2) gm/dl Hct (35.5-45.6) % RDW (13.2-15.2) % Plt Count (140-440) K/mm3 POC ABG pH 7.269 L 7.306 L (7.35-7.45) POC ABG pO2 53 L 74 L (80-105) Potassium (3.6-5.0) mmol/L Carbon Dioxide (22-30) mmol/L BUN (9-20) mg/dL Creatinine (0.8-1.5) mg/dL Glucose (75-100) mg/dL POC Glucose (70-105) Lactic Acid 5.20 H* (0.7-2.0) mmol/L Calcium (8.4-10.2) mg/dL C-Reactive Protein (0.00-1.30) mg/dL Urine WBC (Auto) (0.0-6.0) /HPF 06/14/19 06/14/19 06/14/19 Range/Units 15:21 18:35 18:50 RBC (3.65-5.03) M/mm3 Hgb (11.8-15.2) gm/dl Hct (35.5-45.6) % RDW (13.2-15.2) % Plt Count (140-440) K/mm3 POC ABG pH (7.35-7.45) POC ABG pO2 (80-105) Potassium (3.6-5.0) mmol/L Carbon Dioxide (22-30) mmol/L BUN (9-20) mg/dL Creatinine (0.8-1.5) mg/dL Glucose (75-100) mg/dL POC Glucose 147 H 192 H (70-105) Lactic Acid (0.7-2.0) mmol/L Calcium (8.4-10.2) mg/dL C-Reactive Protein (0.00-1.30) mg/dL Urine WBC (Auto) > 182.0 H (0.0-6.0) /HPF 06/14/19 06/15/19 06/15/19 Range/Units 20:43 00:20 04:30 RBC 3.57 L (3.65-5.03) M/mm3 Hgb 10.1 L (11.8-15.2) gm/dl Hct 30.7 L (35.5-45.6) % RDW 18.0 H (13.2-15.2) % Plt Count 90 L (140-440) K/mm3 POC ABG pH 7.281 L (7.35-7.45) POC ABG pO2 (80-105) Potassium (3.6-5.0) mmol/L Carbon Dioxide (22-30) mmol/L BUN (9-20) mg/dL Creatinine (0.8-1.5) mg/dL Glucose (75-100) mg/dL POC Glucose 334 H (70-105) Lactic Acid (0.7-2.0) mmol/L Calcium (8.4-10.2) mg/dL C-Reactive Protein (0.00-1.30) mg/dL Urine WBC (Auto) (0.0-6.0) /HPF 06/15/19 06/15/19 06/15/19 Range/Units 04:30 04:30 06:24 RBC (3.65-5.03) M/mm3 Hgb (11.8-15.2) gm/dl Hct (35.5-45.6) % RDW (13.2-15.2) % Plt Count (140-440) K/mm3 POC ABG pH (7.35-7.45) POC ABG pO2 (80-105) Potassium 5.7 H D (3.6-5.0) mmol/L Carbon Dioxide 14 L (22-30) mmol/L BUN 47 H (9-20) mg/dL Creatinine 3.4 H D (0.8-1.5) mg/dL Glucose 383 H (75-100) mg/dL POC Glucose 438 H (70-105) Lactic Acid 8.90 H* (0.7-2.0) mmol/L Calcium 7.5 L D (8.4-10.2) mg/dL C-Reactive Protein 24.70 H (0.00-1.30) mg/dL Urine WBC (Auto) (0.0-6.0) /HPF 06/15/19 06/15/19 06/15/19 Range/Units 09:34 09:59 11:49 RBC (3.65-5.03) M/mm3 Hgb (11.8-15.2) gm/dl Hct (35.5-45.6) % RDW (13.2-15.2) % Plt Count (140-440) K/mm3 POC ABG pH (7.35-7.45) POC ABG pO2 (80-105) Potassium (3.6-5.0) mmol/L Carbon Dioxide (22-30) mmol/L BUN (9-20) mg/dL Creatinine (0.8-1.5) mg/dL Glucose (75-100) mg/dL POC Glucose 413 H 327 H (70-105) Lactic Acid 8.20 H* (0.7-2.0) mmol/L Calcium (8.4-10.2) mg/dL C-Reactive Protein (0.00-1.30) mg/dL Urine WBC (Auto) (0.0-6.0) /HPF
[2019-06-15] MEDS: SODIUM BICARBONATE 150 MEQ in STERILE WATER 1,000 ML IV SCH ×2 (13:09→20:39)
--- NOTE | 2019-06-15 13:46 | Progress Note ---
Assessment and Plan 1. Acute kidney injury: Vasomotor PAPITO superimposed on CKD stage 3 in the setting of shock. Renal function continue to decline. Monitor renal function. renal prognosis is guarded. Avoid nephrotoxic agents. Meds dosage based on GFR. 2. FEN: Hypokalemia, Kayexalate ordered. Hypernatremia, improved. Metabolic acidosis, bicarbonate drip. Monitor lytes. 3. Septic shock: On Levophed and Vasopressin. 4. Respiratory failure: On vent. 5. Metabolic Encephalopathy. 6. Anemia: POA. 7. Dysphagia: S/p PEG tube. 8. Adult failure to thrive: Malnourished. Subjective Date of service: 06/15/19 Principal diagnosis: Ac hypoxemic resp failure; Septic shock; PAPITO; Thrombocytopenia; HFrEF Interval history: Patient was seen and examined at the bedside. Patient was moved to the ICU over the weekend. Objective - Vital Signs Vital signs: Vital Signs - 12hr 06/15/19 06/15/19 06/15/19 01:51 02:01 02:11 Temperature Pulse Rate 114 H 102 H 117 H Pulse Rate [ Anterior Bilateral Throughout] Pulse Rate [ From Monitor] Respiratory 30 H 32 H 13 Rate Respiratory Rate [Anterior Bilateral Throughout] Blood Pressure 131/76 72/35 93/56 O2 Sat by Pulse 98 91 97 Oximetry 06/15/19 06/15/19 06/15/19 02:21 02:30 02:41 Temperature Pulse Rate 114 H 114 H 115 H Pulse Rate [ Anterior Bilateral Throughout] Pulse Rate [ From Monitor] Respiratory 30 H 27 H 31 H Rate Respiratory Rate [Anterior Bilateral Throughout] Blood Pressure 111/66 96/65 96/65 O2 Sat by Pulse 100 97 97 Oximetry 06/15/19 06/15/19 06/15/19 02:51 03:00 03:11 Temperature Pulse Rate 116 H 116 H 116 H Pulse Rate [ Anterior Bilateral Throughout] Pulse Rate [ From Monitor] Respiratory 20 24 31 H Rate Respiratory Rate [Anterior Bilateral Throughout] Blood Pressure 106/59 114/67 114/67 O2 Sat by Pulse 98 99 98 Oximetry 06/15/19 06/15/19 06/15/19 03:21 03:30 03:41 Temperature Pulse Rate 117 H 114 H 114 H Pulse Rate [ Anterior Bilateral Throughout] Pulse Rate [ From Monitor] Respiratory 28 H 30 H 30 H Rate Respiratory Rate [Anterior Bilateral Throughout] Blood Pressure 110/62 104/63 104/63 O2 Sat by Pulse 98 99 98 Oximetry 06/15/19 06/15/19 06/15/19 03:51 04:00 04:11 Temperature 97.8 F Pulse Rate 116 H 114 H 117 H Pulse Rate [ Anterior Bilateral Throughout] Pulse Rate [ From Monitor] Respiratory 31 H 30 H 20 Rate Respiratory Rate [Anterior Bilateral Throughout] Blood Pressure 114/59 110/63 110/63 O2 Sat by Pulse 98 98 99 Oximetry 06/15/19 06/15/19 06/15/19 04:21 04:31 04:41 Temperature Pulse Rate 116 H 109 H 115 H Pulse Rate [ Anterior Bilateral Throughout] Pulse Rate [ From Monitor] Respiratory 30 H 19 27 H Rate Respiratory Rate [Anterior Bilateral Throughout] Blood Pressure 104/63 104/63 123/55 O2 Sat by Pulse 98 78 L 98 Oximetry 06/15/19 06/15/19 06/15/19 04:51 05:00 05:10 Temperature Pulse Rate 123 H 118 H 119 H Pulse Rate [ Anterior Bilateral Throughout] Pulse Rate [ From Monitor] Respiratory 19 16 16 Rate Respiratory Rate [Anterior Bilateral Throughout] Blood Pressure 132/71 133/75 133/75 O2 Sat by Pulse 98 96 97 Oximetry 06/15/19 06/15/19 06/15/19 05:20 05:30 05:40 Temperature Pulse Rate 120 H 119 H 115 H Pulse Rate [ Anterior Bilateral Throughout] Pulse Rate [ From Monitor] Respiratory 17 20 25 H Rate Respiratory Rate [Anterior Bilateral Throughout] Blood Pressure 98/65 98/65 O2 Sat by Pulse 96 96 96 Oximetry 06/15/19 06/15/19 06/15/19 05:50 06:00 06:10 Temperature Pulse Rate 116 H 115 H 116 H Pulse Rate [ 117 H Anterior Bilateral Throughout] Pulse Rate [ From Monitor] Respiratory 20 22 30 H Rate Respiratory 30 H Rate [Anterior Bilateral Throughout] Blood Pressure 90/55 92/65 98/65 O2 Sat by Pulse 97 96 97 Oximetry 06/15/19 06/15/19 06/15/19 06:20 06:30 06:40 Temperature Pulse Rate 120 H 118 H 114 H Pulse Rate [ Anterior Bilateral Throughout] Pulse Rate [ From Monitor] Respiratory 30 H 31 H 30 H Rate Respiratory Rate [Anterior Bilateral Throughout] Blood Pressure 83/63 102/67 102/67 O2 Sat by Pulse 98 97 97 Oximetry 06/15/19 06/15/19 06/15/19 06:50 07:00 07:10 Temperature Pulse Rate 121 H 120 H 122 H Pulse Rate [ Anterior Bilateral Throughout] Pulse Rate [ From Monitor] Respiratory 30 H 30 H 29 H Rate Respiratory Rate [Anterior Bilateral Throughout] Blood Pressure 107/72 107/71 107/72 O2 Sat by Pulse 97 98 98 Oximetry 06/15/19 06/15/19 06/15/19 07:20 07:30 07:32 Temperature Pulse Rate 121 H 122 H 120 H Pulse Rate [ Anterior Bilateral Throughout] Pulse Rate [ From Monitor] Respiratory 30 H 30 H Rate Respiratory Rate [Anterior Bilateral Throughout] Blood Pressure 101/66 104/71 104/71 O2 Sat by Pulse 97 97 98 Oximetry 06/15/19 06/15/19 06/15/19 07:40 07:50 08:00 Temperature 98.2 F Pulse Rate 118 H 117 H 118 H Pulse Rate [ Anterior Bilateral Throughout] Pulse Rate [ 115 H From Monitor] Respiratory 26 H 27 H 30 H Rate Respiratory Rate [Anterior Bilateral Throughout] Blood Pressure 104/71 114/69 114/70 O2 Sat by Pulse 99 99 98 Oximetry 06/15/19 06/15/19 06/15/19 08:10 08:20 08:30 Temperature Pulse Rate 117 H 115 H 116 H Pulse Rate [ Anterior Bilateral Throughout] Pulse Rate [ From Monitor] Respiratory 30 H 30 H 30 H Rate Respiratory Rate [Anterior Bilateral Throughout] Blood Pressure 114/70 113/69 107/68 O2 Sat by Pulse 98 97 98 Oximetry 06/15/19 06/15/19 06/15/19 08:40 08:50 09:00 Temperature Pulse Rate 117 H 117 H 111 H Pulse Rate [ Anterior Bilateral Throughout] Pulse Rate [ From Monitor] Respiratory 30 H 30 H 30 H Rate Respiratory Rate [Anterior Bilateral Throughout] Blood Pressure 113/69 117/71 75/47 O2 Sat by Pulse 99 97 95 Oximetry 06/15/19 06/15/19 06/15/19 09:10 09:20 09:30 Temperature Pulse Rate 111 H 117 H 119 H Pulse Rate [ Anterior Bilateral Throughout] Pulse Rate [ From Monitor] Respiratory 30 H 30 H 22 Rate Respiratory Rate [Anterior Bilateral Throughout] Blood Pressure 75/47 89/57 107/67 O2 Sat by Pulse 96 95 96 Oximetry 06/15/19 06/15/19 06/15/19 09:40 09:50 10:00 Temperature Pulse Rate 119 H 121 H 123 H Pulse Rate [ Anterior Bilateral Throughout] Pulse Rate [ From Monitor] Respiratory 16 16 23 Rate Respiratory Rate [Anterior Bilateral Throughout] Blood Pressure 107/67 108/75 104/68 O2 Sat by Pulse 98 96 Oximetry 06/15/19 06/15/19 06/15/19 10:10 10:20 10:30 Temperature Pulse Rate 125 H 115 H 113 H Pulse Rate [ Anterior Bilateral Throughout] Pulse Rate [ From Monitor] Respiratory 17 15 18 Rate Respiratory Rate [Anterior Bilateral Throughout] Blood Pressure 104/68 124/66 99/59 O2 Sat by Pulse 94 94 96 Oximetry 06/15/19 06/15/19 06/15/19 10:40 10:50 11:00 Temperature Pulse Rate 114 H 114 H 113 H Pulse Rate [ Anterior Bilateral Throughout] Pulse Rate [ From Monitor] Respiratory 15 14 15 Rate Respiratory Rate [Anterior Bilateral Throughout] Blood Pressure 99/59 113/65 113/68 O2 Sat by Pulse 96 97 97 Oximetry 06/15/19 06/15/19 06/15/19 11:10 11:20 11:27 Temperature Pulse Rate 111 H 108 H 109 H Pulse Rate [ Anterior Bilateral Throughout] Pulse Rate [ From Monitor] Respiratory 15 30 H Rate Respiratory Rate [Anterior Bilateral Throughout] Blood Pressure 113/68 122/68 122/68 O2 Sat by Pulse 97 96 96 Oximetry 06/15/19 06/15/19 06/15/19 11:30 11:40 11:50 Temperature Pulse Rate 109 H 110 H 111 H Pulse Rate [ Anterior Bilateral Throughout] Pulse Rate [ From Monitor] Respiratory 30 H 30 H 30 H Rate Respiratory Rate [Anterior Bilateral Throughout] Blood Pressure 129/69 129/69 130/69 O2 Sat by Pulse 96 97 97 Oximetry 06/15/19 06/15/19 06/15/19 12:00 12:10 12:20 Temperature 98 F Pulse Rate 116 H 114 H 109 H Pulse Rate [ Anterior Bilateral Throughout] Pulse Rate [ 113 H From Monitor] Respiratory 30 H 25 H 23 Rate Respiratory Rate [Anterior Bilateral Throughout] Blood Pressure 141/77 141/77 130/69 O2 Sat by Pulse 99 96 97 Oximetry - General Appearance General appearance: well-developed, appears stated age, sedated on ventilator, intubated EENT: ATNC, PERRL Neck: other (Trachea midline) Respiratory: Present: Clear to Ascultation Cardiology: regular, S1S2, no murmurs Gastrointestinal: normoactive bowel sounds, no tenderness Integumentary: other (abrasions over both legs) Neurologic: obtunded Musculoskeletal: other (no edema) - Lab 06/15/19 04:30 06/15/19 04:30 Most recent lab results Calcium 7.5 mg/dL (8.4-10.2) L D 06/15/19 04:30 Phosphorus 4.50 mg/dL (2.5-4.5) D 06/15/19 04:30 Magnesium 1.90 mg/dL (1.7-2.3) 06/15/19 04:30 102.7 mg/dL (0.1-20.0) H 06/06/19 17:37 47 mmol/L 06/06/19 17:37 Medications & Allergies - Medications Allergies/Adverse Reactions: Allergies No Known Allergies Allergy (Verified 05/19/19 22:08) Home Medications: Home Medications Medication Instructions Recorded Confirmed Last Taken Type Cholestyramine/Aspartame 239.4 mg PO TID 05/20/19 06/05/19 Unknown History [Cholestyramine Light Powder] Famotidine [Pepcid] 20 mg PO BID 05/20/19 06/05/19 Unknown History Ferrous Gluconate [Fergon 240 MG 240 mg PO BID 05/20/19 06/05/19 Unknown History tab] Finasteride [Proscar] 5 mg PO DAILY 05/20/19 06/05/19 Unknown History Mirtazapine [Remeron 15mg TAB] 15 mg PO QHS 05/20/19 06/05/19 Unknown History Tamsulosin [Flomax] 0.4 mg PO QDAY 05/20/19 06/05/19 Unknown History Vitamin B Complex [B Complex] 1 each PO DAILY 05/20/19 06/05/19 Unknown History Aspirin EC 81 mg PO QDAY tablet 05/22/19 06/05/19 Unknown Rx Insulin Regular, Human [HumuLIN R] 0 units SUB-Q ACHS units 05/22/19 06/05/19 Unknown Rx Megestrol [Megace] 400 mg PO QDAY oral.liqd 05/22/19 06/05/19 Unknown Rx Insulin NPH/Regular [NovoLIN 70/30] 10 unit SQ BIDDIAB #1 vial 05/27/19 06/05/19 Unknown Rx Metoprolol [Lopressor TAB] 12.5 mg PO BID #60 tablet 05/27/19 06/05/19 Unknown Rx amLODIPine [Norvasc] 10 mg PO QDAY #60 tablet 05/27/19 06/05/19 Unknown Rx Active Medications: Generic Name Dose Route Start Last Admin Trade Name Freq PRN Reason Stop Dose Admin Acetaminophen 650 mg 06/08/19 14:58 Tylenol PO Q4H PRN Pain MILD(1-3)/Fever >100.5/POLANCO Albuterol 2.5 mg 06/14/19 14:00 06/15/19 11:31 Proventil IH 2.5 mg Q6HRT ELIZABETH Administration Lipase/Protease/Amylase 1 each 06/09/19 16:01 Pancrerojelio Freed 10,500 Unit FEEDTUBE PRN PRN For Clogged Feeding Tube Cholestyramine Resin 4 gm 06/05/19 20:00 06/15/19 09:06 Questran PO 4 gm TID ELIZABETH Administration Dextrose 50 ml 06/05/19 14:03 06/10/19 22:14 D50w (25gm) Syringe IV 50 ml PRN PRN Administration Hypoglycemia Famotidine 20 mg 06/05/19 22:00 06/15/19 09:38 Pepcid PO 20 mg DAILY ELIZABETH Administration Fentanyl 50 mcg 06/14/19 11:17 Sublimaze IV Q10MIN PRN ANALGESIA Ferrous Gluconate 324 mg 06/05/19 22:00 06/15/19 09:39 Fergon PO 324 mg BID ELIZABETH Administration Finasteride 5 mg 06/06/19 10:00 06/15/19 09:38 Proscar PO 5 mg DAILY ELIZABETH Administration Hydralazine HCl 10 mg 06/07/19 14:00 06/07/19 13:42 Apresoline IV 10 mg Q3HR PRN Administration Elevated BP Hydrophilic Ointment 1 applic 06/14/19 11:17 Vaseline Lip Therapy TP Q2HR PRN Dry Lips Norepinephrine 4 mg in 250 mls @ 7.5 mls/hr 06/14/19 06:15 06/15/19 13:12 Levophed Drip 4 Mg/Ns 250 Ml IV 16 mcg/min TITR ELIZABETH 60 mls/hr Titration Protocol 2 MCG/MIN Fentanyl Citrate 2,000 mcg in 100 mls @ 2.46 mls/hr 06/14/19 12:00 06/15/19 08:24 Fentanyl Drip Premix IV 0 mcg/kg/hr TITR ELIZABETH 0 mls/hr Titration Protocol 1 MCG/KG/HR Vasopressin 20 unit/ Sodium 101 mls @ 9.09 mls/hr 06/14/19 14:00 06/15/19 12:13 Chloride IV 0.03 units/min TITR ELIZABETH 9.09 mls/hr Administration Protocol 0.03 UNITS/MIN Meropenem 500 mg in 50 mls @ 50 mls/hr 06/16/19 10:00 Merrem/Ns 500 Mg/50 Ml IV Q24HR ELIZABETH Sodium Bicarbonate 150 meq/ 1,150 mls @ 150 mls/hr 06/15/19 12:00 06/15/19 13:09 Sterile Water IV 06/16/19 16:39 150 mls/hr DIRECT ELIZABETH Administration Insulin Glargine 10 units 06/15/19 12:00 06/15/19 12:27 Lantus SUB-Q 10 units DAILY ELIZABETH Administration Insulin Human Lispro 0 unit 06/13/19 20:00 06/15/19 09:31 Humalog SUB-Q 5 unit Q6H ELIZABETH Administration Protocol Mirtazapine 15 mg 06/05/19 22:00 06/14/19 21:49 Remeron PO 15 mg QHS ELIZABETH Administration Multi-Ingred Cream/Lotion/Oil/Oint 1 applic 06/14/19 11:17 Artificial Tears Ophth Oint OU Q4HR PRN Dry Eye(s) Ondansetron HCl 4 mg 06/08/19 14:58 Zofran IV Q8H PRN Nausea And Vomiting Oxycodone/Acetaminophen 1 tab 06/08/19 14:58 Percocet 5/325 PO Q6H PRN Pain, Moderate (4-6) Simple Syrup 15 ml 06/09/19 16:01 Simple Syrup FEEDTUBE PRN PRN Hypoglycemia Simple Syrup 30 ml 06/09/19 16:01 Simple Syrup FEEDTUBE PRN PRN Hypoglycemia Sodium Bicarbonate 325 mg 06/09/19 16:01 Sodium Bicarbonate FEEDTUBE PRN PRN For Clogged Feeding Tube Sodium Chloride 10 ml 06/05/19 22:00 06/15/19 09:33 Sodium Chloride Flush Syringe 10 Ml IV 10 ml BID ELIZABETH Administration Sodium Chloride 10 ml 06/05/19 14:00 06/13/19 13:04 Sodium Chloride Flush Syringe 10 Ml IV 10 ml PRN PRN Administration LINE FLUSH Sodium Polystyrene Sulfonate 30 gm 06/15/19 08:00 06/15/19 08:53 Kionex PO 06/15/19 14:01 30 gm Q6H ELIZABETH Administration Tamsulosin HCl 0.4 mg 06/06/19 10:00 06/15/19 09:38 Flomax PO 0.4 mg QDAY ELIZABETH Administration Vitamin B Complex/Vitamin C 1 each 06/06/19 10:00 06/15/19 09:39 Allbee With C PO 1 each QDAY ELIZABETH Administration
[2019-06-15] MEDS ORDERED: VANCOMYCIN/NS 500 MG/100 ML 500 MG/100 ML BAG IV SCH (18:00)
[2019-06-15] MEDS: REMERON PO SCH (22:26)
[2019-06-16] MEDS: KIONEX PO SCH (02:10)
[2019-06-16] MEDS: HumaLOG SUB-Q SCH ×4 (02:30→20:00)
--- NOTE | 2019-06-16 03:44 | XRay Report ---
CHEST 1 VIEW INDICATION / CLINICAL INFORMATION: follow up respiratory failure. COMPARISON: 06/15/2019 FINDINGS: SUPPORT DEVICES: Endotracheal tube remains in place unchanged. HEART / MEDIASTINUM: No significant abnormality. LUNGS / PLEURA: Patchy bilateral lung consolidation appears essentially unchanged given the expirator y technique. No pneumothorax. ADDITIONAL FINDINGS: No significant additional findings. IMPRESSION: 1. No significant change Signer Name: Tyler Osorio MD Signed: 06/16/2019 3:40 AM Workstation Name: [email or web address]
[2019-06-16] MEDS: PROVENTIL IH SCH ×4 (04:08→20:45)
[2019-06-16 05:35] LABS: INR 1.59 (0.87-1.13)
[2019-06-16 05:52] LABS: Calcium 6.8 mg/dL (8.4-10.2)
[2019-06-16] MEDS: D50W (25GM) Syringe IV PRN (06:14)
[2019-06-16] MEDS: LEVOPHED DRIP 4 MG/NS 250 ML 4 MG/250 ML BAG IV SCH ×2 (06:15→18:31)
[2019-06-16] MEDS: SODIUM BICARBONATE 150 MEQ in STERILE WATER 1,000 ML IV SCH (06:17)
[2019-06-16] MEDS: MERREM/NS 500 MG/50 ML 500 MG/50 ML BAG IV SCH (09:08)
[2019-06-16] MEDS: FLOMAX PO SCH (09:09)
[2019-06-16] MEDS: ALLBEE WITH C PO SCH (09:09)
[2019-06-16] MEDS: QUESTRAN PO SCH ×3 (09:09→20:03)
[2019-06-16] MEDS: PEPCID PO SCH (09:09)
[2019-06-16] MEDS: PROSCAR PO SCH (09:09)
[2019-06-16] MEDS: SODIUM CHLORIDE FLUSH SYRINGE 10 ML IV SCH ×2 (09:10→22:06)
[2019-06-16] MEDS ORDERED: CALCIUM GLUCONATE 2,000 MG in NACL 0.9% 100 ML IV ONE (09:30)
--- NOTE | 2019-06-16 09:49 | Progress Note ---
Assessment and Plan Acute hypoxemic respiratory failure on MVS Severe Sepsis with shock Acute metabolic encephalopathy Acute renal failure Severe protein calorie malnutrition Sinus Bradycardia Thrombocytopenia Cardiomyopathy EF 25% Metabolic acidosis, probably secondary to sepsis and renal failure Leucopenia - hyperventilate acutely to compensate for severe metabolic acidosis - avoid hyperglycemia Sterile water with 3 amps bicarbonate per liter started @ 150 mls/hr - aggressive volume resuscitation while septic keeping HFrEF in mind (EF 25%), base excess is -12 Give one bolus of LR, ABG and lactic acid levels at 5pm. - discontinue femoral CVL and place PICC line - Wean supplemental oxygen to keep O2 sats>90% - VAP bundle addressed - continue bronchodilators with pulmonary hygiene per RT - continue lung protective strategies - continue enteric nutrition via PEG at goal rate as tolerated -Aspiration precautions, HOB >40 - continue anti-infective's per ID rec's (de-escalate based on clinical and microbiologic data) - discontinue heparin for VTE prophylaxis, has thrombocytopenia, use SCDs for now while montoring platelet counts - continue to monitor for bleeding - continue mobility protocols to prevent pressure ulcers - Cardio-protective measures - continue to avoid nephrotoxins, adjust all medications for GFR, CrcL - Azotemia per nephrology team - wean vasopressors to keep MAP > 65 mmHg - on vasopressin and norepinephrine - continue chronic disease med's per attending - daily SAT's and SBT assessment as tolerated - Titrate sedation to RASS 0 to -1 - continue accuchecks with glycemic control per SSI for target blood glucose 140 - 180 mg/dL acutely - Agitation management - Prevention of delirium, maintenance of sleep-wake cycle - Stress ulcer prophylaxis - continue other care per attending / other consultants .... re-evaluate in am & prn CONDITION: CRITICAL PROGNOSIS: GUARDED CODE STATUS: FULL The high probability of a clinically significant, sudden or life-threatening deterioration of the [respiratory, renal and cardiac] system(s) required my full and direct attention, intervention and personal management. The aggregate critical care time was [35] minutes without overlap. Time includes spent on; [x] Data Review and interpretation [x] Patient assessment and monitoring of vital signs [x] Documentation [x] Medication orders and management Subjective Date of service: 06/16/19 Principal diagnosis: Ac hypoxemic resp failure; Septic shock; PAPITO; Thrombocytopenia; HFrEF Interval history: Patient is seen today for: Acute hypoxemic respiratory failure; Severe sepsis w ith shock; Acute metabolic encephalopathy; Acute renal failure; Severe protein calorie malnutrition; Sinus Bradycardia; Thrombocytopenia; Cardiomyopathy EF 25%; Metabolic acidosis; Leucopenia Seen and examined at bedside; 24hour events reviewed; nursing and respiratory care staff consulted; no adverse overnight events reported to me; on mechanical ventilatory support, awake and alert, on vasopressors- norepinephrine, vasopressin, no documented fevers, no vomiting, tolerating tube feeding at goal, right femoral CVC Objective Vital Signs - 12hr 06/15/19 06/15/19 06/15/19 21:50 22:00 22:10 Temperature Pulse Rate 99 H 100 H 92 H Pulse Rate [ Anterior Bilateral Throughout] Pulse Rate [ From Monitor] Respiratory 25 H 25 H 25 H Rate Respiratory Rate [Anterior Bilateral Throughout] Blood Pressure 116/63 109/69 109/69 O2 Sat by Pulse 95 95 94 Oximetry 06/15/19 06/15/19 06/15/19 22:20 22:30 22:40 Temperature Pulse Rate 100 H 102 H 98 H Pulse Rate [ Anterior Bilateral Throughout] Pulse Rate [ From Monitor] Respiratory 17 26 H 25 H Rate Respiratory Rate [Anterior Bilateral Throughout] Blood Pressure 148/76 135/75 135/75 O2 Sat by Pulse 97 96 96 Oximetry 06/15/19 06/15/19 06/15/19 22:50 23:00 23:10 Temperature Pulse Rate 98 H 99 H 98 H Pulse Rate [ Anterior Bilateral Throughout] Pulse Rate [ From Monitor] Respiratory 25 H 25 H 25 H Rate Respiratory Rate [Anterior Bilateral Throughout] Blood Pressure 121/62 111/71 111/71 O2 Sat by Pulse 96 95 97 Oximetry 06/15/19 06/15/19 06/15/19 23:20 23:30 23:40 Temperature Pulse Rate 100 H 102 H 100 H Pulse Rate [ Anterior Bilateral Throughout] Pulse Rate [ From Monitor] Respiratory 25 H 25 H 25 H Rate Respiratory Rate [Anterior Bilateral Throughout] Blood Pressure 117/61 106/63 106/63 O2 Sat by Pulse 97 96 97 Oximetry 06/15/19 06/15/19 06/16/19 23:41 23:50 00:00 Temperature 97.6 F Pulse Rate 98 H 100 H Pulse Rate [ Anterior Bilateral Throughout] Pulse Rate [ 98 H From Monitor] Respiratory 25 H 30 H Rate Respiratory Rate [Anterior Bilateral Throughout] Blood Pressure 115/67 105/72 O2 Sat by Pulse 97 98 Oximetry 08/06/19 08/06/19 08/06/19 00:10 00:20 00:27 Temperature Pulse Rate 99 H 98 H 100 H Pulse Rate [ Anterior Bilateral Throughout] Pulse Rate [ From Monitor] Respiratory 25 H 25 H Rate Respiratory Rate [Anterior Bilateral Throughout] Blood Pressure 115/67 122/70 122/70 O2 Sat by Pulse 97 96 97 Oximetry 06/16/19 06/16/19 06/16/19 00:30 00:40 00:50 Temperature Pulse Rate 100 H 99 H 98 H Pulse Rate [ Anterior Bilateral Throughout] Pulse Rate [ From Monitor] Respiratory 25 H 25 H 25 H Rate Respiratory Rate [Anterior Bilateral Throughout] Blood Pressure 131/76 105/72 125/68 O2 Sat by Pulse 97 97 97 Oximetry 06/16/19 06/16/19 06/16/19 01:00 01:10 01:20 Temperature Pulse Rate 101 H 99 H 99 H Pulse Rate [ Anterior Bilateral Throughout] Pulse Rate [ From Monitor] Respiratory 26 H 25 H 25 H Rate Respiratory Rate [Anterior Bilateral Throughout] Blood Pressure 127/76 125/68 112/64 O2 Sat by Pulse 97 97 97 Oximetry 06/16/19 06/16/19 06/16/19 01:30 01:40 01:50 Temperature Pulse Rate 97 H 98 H 98 H Pulse Rate [ Anterior Bilateral Throughout] Pulse Rate [ From Monitor] Respiratory 25 H 25 H 25 H Rate Respiratory Rate [Anterior Bilateral Throughout] Blood Pressure 109/64 127/76 109/66 O2 Sat by Pulse 98 98 98 Oximetry 06/16/19 06/16/19 06/16/19 02:00 02:10 02:20 Temperature Pulse Rate 98 H 97 H 96 H Pulse Rate [ Anterior Bilateral Throughout] Pulse Rate [ From Monitor] Respiratory 26 H 25 H 25 H Rate Respiratory Rate [Anterior Bilateral Throughout] Blood Pressure 110/68 109/66 115/65 O2 Sat by Pulse 98 97 97 Oximetry 06/16/19 06/16/19 06/16/19 02:30 02:40 02:50 Temperature Pulse Rate 103 H 103 H 98 H Pulse Rate [ Anterior Bilateral Throughout] Pulse Rate [ From Monitor] Respiratory 26 H Rate Respiratory Rate [Anterior Bilateral Throughout] Blood Pressure 127/71 110/68 100/61 O2 Sat by Pulse 96 96 93 Oximetry 06/16/19 06/16/19 06/16/19 03:00 03:10 03:20 Temperature Pulse Rate 97 H 97 H 99 H Pulse Rate [ Anterior Bilateral Throughout] Pulse Rate [ From Monitor] Respiratory Rate Respiratory Rate [Anterior Bilateral Throughout] Blood Pressure 107/59 100/61 116/61 O2 Sat by Pulse 94 94 95 Oximetry 06/16/19 06/16/19 06/16/19 03:30 03:32 03:40 Temperature 99.8 F H Pulse Rate 99 H 94 H Pulse Rate [ Anterior Bilateral Throughout] Pulse Rate [ From Monitor] Respiratory Rate Respiratory Rate [Anterior Bilateral Throughout] Blood Pressure 107/58 107/59 O2 Sat by Pulse 95 96 Oximetry 06/16/19 06/16/19 06/16/19 03:50 04:00 04:10 Temperature Pulse Rate 94 H 93 H 93 H Pulse Rate [ 95 H Anterior Bilateral Throughout] Pulse Rate [ 120 H From Monitor] Respiratory 30 H Rate Respiratory 25 H Rate [Anterior Bilateral Throughout] Blood Pressure 95/53 71/43 107/58 O2 Sat by Pulse 96 98 96 Oximetry 06/16/19 06/16/19 06/16/19 04:20 04:30 04:40 Temperature Pulse Rate 93 H 92 H 94 H Pulse Rate [ Anterior Bilateral Throughout] Pulse Rate [ From Monitor] Respiratory Rate Respiratory Rate [Anterior Bilateral Throughout] Blood Pressure 93/61 101/57 101/57 O2 Sat by Pulse 96 97 99 Oximetry 06/16/19 06/16/19 06/16/19 04:50 05:00 05:10 Temperature Pulse Rate 93 H 92 H 95 H Pulse Rate [ Anterior Bilateral Throughout] Pulse Rate [ From Monitor] Respiratory Rate Respiratory Rate [Anterior Bilateral Throughout] Blood Pressure 105/58 82/34 82/34 O2 Sat by Pulse 97 95 94 Oximetry 06/16/19 06/16/19 06/16/19 05:20 05:30 05:40 Temperature Pulse Rate 95 H 95 H 94 H Pulse Rate [ Anterior Bilateral Throughout] Pulse Rate [ From Monitor] Respiratory Rate Respiratory Rate [Anterior Bilateral Throughout] Blood Pressure 97/58 109/61 109/61 O2 Sat by Pulse 94 95 95 Oximetry 06/16/19 06/16/19 06/16/19 05:50 06:00 06:10 Temperature Pulse Rate 95 H 94 H 92 H Pulse Rate [ Anterior Bilateral Throughout] Pulse Rate [ From Monitor] Respiratory Rate Respiratory Rate [Anterior Bilateral Throughout] Blood Pressure 112/67 107/62 107/62 O2 Sat by Pulse 95 95 96 Oximetry 06/16/19 06/16/19 06/16/19 06:20 06:30 06:40 Temperature Pulse Rate 93 H 98 H 93 H Pulse Rate [ Anterior Bilateral Throughout] Pulse Rate [ From Monitor] Respiratory Rate Respiratory Rate [Anterior Bilateral Throughout] Blood Pressure 117/88 118/79 118/79 O2 Sat by Pulse 99 97 97 Oximetry 06/16/19 06/16/19 06/16/19 06:50 07:00 07:10 Temperature Pulse Rate 92 H 93 H 92 H Pulse Rate [ Anterior Bilateral Throughout] Pulse Rate [ From Monitor] Respiratory Rate Respiratory Rate [Anterior Bilateral Throughout] Blood Pressure 107/73 115/71 115/71 O2 Sat by Pulse 97 97 97 Oximetry 06/16/19 06/16/19 06/16/19 07:20 07:30 07:40 Temperature Pulse Rate 91 H 92 H 90 Pulse Rate [ Anterior Bilateral Throughout] Pulse Rate [ From Monitor] Respiratory Rate Respiratory Rate [Anterior Bilateral Throughout] Blood Pressure 117/66 121/67 121/67 O2 Sat by Pulse 96 96 96 Oximetry 06/16/19 06/16/19 06/16/19 07:50 08:00 08:10 Temperature Pulse Rate 89 92 H 92 H Pulse Rate [ Anterior Bilateral Throughout] Pulse Rate [ 92 H From Monitor] Respiratory Rate Respiratory Rate [Anterior Bilateral Throughout] Blood Pressure 128/68 99/58 99/58 O2 Sat by Pulse 96 95 95 Oximetry 06/16/19 06/16/19 06/16/19 08:20 08:30 08:40 Temperature Pulse Rate 92 H 89 89 Pulse Rate [ Anterior Bilateral Throughout] Pulse Rate [ From Monitor] Respiratory Rate Respiratory Rate [Anterior Bilateral Throughout] Blood Pressure 128/68 84/48 84/48 O2 Sat by Pulse 95 95 94 Oximetry 06/16/19 06/16/19 09:08 09:09 Temperature Pulse Rate 92 H Pulse Rate [ 92 H Anterior Bilateral Throughout] Pulse Rate [ From Monitor] Respiratory Rate Respiratory 25 H Rate [Anterior Bilateral Throughout] Blood Pressure 100/56 O2 Sat by Pulse 96 Oximetry Constitutional: lethargic, other (elderly looking, emaciated AAM, normocephalic and atraumatic with increased respiratory effort at rest) Eyes: non-icteric ENT: oropharynx moist, other (ETT 23 cm GLORIA) Neck: supple, no lymphadenopathy, no JVD Effort: mildly labored Ascultation: Bilateral: diminished breath sounds, rales Percussion: Bilateral: not dull Cardiovascular: regular rate and rhythm, other (tachycardia) Gastrointestinal: normoactive bowel sounds, soft, non-tender, non-distended Integumentary: rash, decubitus ulcer Extremities: no cyanosis, no edema, pulses normal, no ischemia or petechiae, other (left tibial IO device) Neurologic: other (awake and alert, not obeying commands) Psychiatric: other (Unable to assess re AMS) CBC and BMP: 06/15/19 04:30 06/16/19 Unknown ABG, PT/INR, D-dimer: ABG POC ABG pH 7.541 (7.35-7.45) H 06/16/19 04:34 POC ABG pCO2 30.7 (35-45) L 06/16/19 04:34 POC ABG pO2 62 (80-105) L 06/16/19 04:34 POC ABG HCO3 26.3 (22-26 mml/L) 06/16/19 04:34 POC ABG Total CO2 27 (23-27mmol/L) 06/16/19 04:34 POC ABG O2 Sat 94 06/16/19 04:34 PT/INR, D-dimer PT 18.6 Sec. (12.2-14.9) H 06/16/19 Unknown INR 1.59 (0.87-1.13) H 06/16/19 Unknown Abnormal lab findings: Abnormal Labs 06/05/19 06/05/19 06/05/19 10:24 11:11 11:11 WBC RBC Hgb 11.2 L Hct 33.2 L RDW 17.3 H Plt Count [place] % (Auto) Lymph # 0.9 L Seg Neutrophils % 76.0 H Seg Neutrophils # PT INR APTT 37.7 H POC ABG pH POC ABG pCO2 POC ABG pO2 Sodium Potassium Chloride Carbon Dioxide BUN Creatinine Glucose POC Glucose 125 H Hemoglobin A1c Lactic Acid Calcium Phosphorus Magnesium AST Alkaline Phosphatase Total Creatine Kinase CK-MB (CK-2) CK-MB (CK-2) Rel Index Troponin T C-Reactive Protein Total Protein Albumin HDL Cholesterol Urine WBC (Auto) Urine Creatinine 06/05/19 06/05/19 06/05/19 11:11 11:11 11:36 WBC RBC Hgb Hct RDW Plt Count [place] % (Auto) Lymph # Seg Neutrophils % Seg Neutrophils # PT INR APTT POC ABG pH POC ABG pCO2 POC ABG pO2 Sodium 147 H Potassium Chloride 115.9 H Carbon Dioxide 18 L BUN 45 H Creatinine 2.4 H Glucose 118 H POC Glucose 109 H Hemoglobin A1c Lactic Acid 0.50 L Calcium Phosphorus Magnesium AST Alkaline Phosphatase 147 H Total Creatine Kinase CK-MB (CK-2) CK-MB (CK-2) Rel Index Troponin T 0.047 H C-Reactive Protein Total Protein Albumin 3.5 L HDL Cholesterol 115 H Urine WBC (Auto) Urine Creatinine 06/05/19 06/05/19 06/05/19 13:21 14:03 16:16 WBC RBC Hgb Hct RDW Plt Count [place] % (Auto) Lymph # Seg Neutrophils % Seg Neutrophils # PT INR APTT POC ABG pH POC ABG pCO2 POC ABG pO2 Sodium Potassium Chloride Carbon Dioxide BUN Creatinine Glucose POC Glucose 56 L Hemoglobin A1c Lactic Acid 0.50 L Calcium Phosphorus Magnesium AST Alkaline Phosphatase Total Creatine Kinase CK-MB (CK-2) CK-MB (CK-2) Rel Index Troponin T C-Reactive Protein Total Protein Albumin HDL Cholesterol Urine WBC (Auto) 14.0 H Urine Creatinine 06/05/19 06/05/19 06/05/19 18:52 19:38 20:07 WBC RBC Hgb Hct RDW Plt Count [place] % (Auto) Lymph # Seg Neutrophils % Seg Neutrophils # PT INR APTT POC ABG pH POC ABG pCO2 POC ABG pO2 Sodium Potassium Chloride Carbon Dioxide BUN Creatinine Glucose 128 H POC Glucose < 40 L 140 H Hemoglobin A1c Lactic Acid Calcium Phosphorus Magnesium AST Alkaline Phosphatase Total Creatine Kinase CK-MB (CK-2) CK-MB (CK-2) Rel Index Troponin T C-Reactive Protein Total Protein Albumin HDL Cholesterol Urine WBC (Auto) Urine Creatinine 06/05/19 06/06/19 06/06/19 21:46 02:06 04:22 WBC RBC Hgb Hct RDW 18.1 H Plt Count [place] % (Auto) Lymph # Seg Neutrophils % 71.8 H Seg Neutrophils # PT INR APTT POC ABG pH POC ABG pCO2 POC ABG pO2 Sodium Potassium Chloride Carbon Dioxide BUN Creatinine Glucose POC Glucose 141 H 213 H Hemoglobin A1c Lactic Acid Calcium Phosphorus Magnesium AST Alkaline Phosphatase Total Creatine Kinase CK-MB (CK-2) CK-MB (CK-2) Rel Index Troponin T C-Reactive Protein Total Protein Albumin HDL Cholesterol Urine WBC (Auto) Urine Creatinine 06/06/19 06/06/19 06/06/19 04:22 05:20 07:42 WBC RBC Hgb Hct RDW Plt Count [place] % (Auto) Lymph # Seg Neutrophils % Seg Neutrophils # PT INR APTT POC ABG pH POC ABG pCO2 POC ABG pO2 Sodium Potassium 5.1 H Chloride 112.2 H Carbon Dioxide 13 L BUN 44 H Creatinine 2.3 H Glucose 182 H POC Glucose 237 H 247 H Hemoglobin A1c Lactic Acid Calcium Phosphorus Magnesium 2.60 H AST 45 H Alkaline Phosphatase 164 H Total Creatine Kinase CK-MB (CK-2) CK-MB (CK-2) Rel Index Troponin T C-Reactive Protein Total Protein Albumin 3.5 L HDL Cholesterol Urine WBC (Auto) Urine Creatinine 06/06/19 06/06/19 06/06/19 10:48 13:19 17:34 WBC RBC Hgb Hct RDW Plt Count [place] % (Auto) Lymph # Seg Neutrophils % Seg Neutrophils # PT INR APTT POC ABG pH POC ABG pCO2 POC ABG pO2 Sodium Potassium Chloride Carbon Dioxide BUN Creatinine Glucose POC Glucose 167 H 108 H < 40 L Hemoglobin A1c Lactic Acid Calcium Phosphorus Magnesium AST Alkaline Phosphatase Total Creatine Kinase CK-MB (CK-2) CK-MB (CK-2) Rel Index Troponin T C-Reactive Protein Total Protein Albumin HDL Cholesterol Urine WBC (Auto) Urine Creatinine 06/06/19 06/06/19 06/06/19 17:37 18:10 20:50 WBC RBC Hgb Hct RDW Plt Count [place] % (Auto) Lymph # Seg Neutrophils % Seg Neutrophils # PT INR APTT POC ABG pH POC ABG pCO2 POC ABG pO2 Sodium Potassium Chloride Carbon Dioxide BUN Creatinine Glucose 71 L POC Glucose 227 H Hemoglobin A1c Lactic Acid Calcium Phosphorus Magnesium AST Alkaline Phosphatase Total Creatine Kinase CK-MB (CK-2) CK-MB (CK-2) Rel Index Troponin T C-Reactive Protein Total Protein Albumin HDL Cholesterol Urine WBC (Auto) Urine Creatinine 102.7 H 06/07/19 06/07/19 06/07/19 02:36 05:40 07:59 WBC RBC Hgb Hct RDW Plt Count [place] % (Auto) Lymph # Seg Neutrophils % Seg Neutrophils # PT INR APTT POC ABG pH POC ABG pCO2 POC ABG pO2 Sodium Potassium Chloride Carbon Dioxide BUN Creatinine Glucose POC Glucose 144 H 183 H 207 H Hemoglobin A1c Lactic Acid Calcium Phosphorus Magnesium AST Alkaline Phosphatase Total Creatine Kinase CK-MB (CK-2) CK-MB (CK-2) Rel Index Troponin T C-Reactive Protein Total Protein Albumin HDL Cholesterol Urine WBC (Auto) Urine Creatinine 06/07/19 06/07/19 06/07/19 11:40 14:35 15:12 WBC RBC Hgb Hct RDW Plt Count [place] % (Auto) Lymph # Seg Neutrophils % Seg Neutrophils # PT INR APTT POC ABG pH POC ABG pCO2 POC ABG pO2 Sodium Potassium Chloride Carbon Dioxide BUN 40 H Creatinine 2.2 H Glucose 154 H POC Glucose 160 H 164 H Hemoglobin A1c Lactic Acid Calcium Phosphorus Magnesium AST Alkaline Phosphatase Total Creatine Kinase CK-MB (CK-2) CK-MB (CK-2) Rel Index Troponin T C-Reactive Protein Total Protein Albumin HDL Cholesterol Urine WBC (Auto) Urine Creatinine 06/07/19 06/07/19 06/08/19 16:35 21:43 02:00 WBC RBC Hgb Hct RDW Plt Count [place] % (Auto) Lymph # Seg Neutrophils % Seg Neutrophils # PT INR APTT POC ABG pH POC ABG pCO2 POC ABG pO2 Sodium Potassium Chloride Carbon Dioxide BUN Creatinine Glucose POC Glucose 181 H 62 L 126 H Hemoglobin A1c Lactic Acid Calcium Phosphorus Magnesium AST Alkaline Phosphatase Total Creatine Kinase CK-MB (CK-2) CK-MB (CK-2) Rel Index Troponin T C-Reactive Protein Total Protein Albumin HDL Cholesterol Urine WBC (Auto) Urine Creatinine 06/08/19 06/08/19 06/08/19 05:46 05:55 05:55 WBC 3.1 L RBC Hgb 10.8 L Hct 31.6 L D RDW 16.8 H Plt Count [place] % (Auto) 14.3 H Lymph # 0.9 L Seg Neutrophils % Seg Neutrophils # 1.6 L PT INR APTT POC ABG pH POC ABG pCO2 POC ABG pO2 Sodium Potassium Chloride Carbon Dioxide 21 L BUN 38 H Creatinine 2.2 H Glucose 167 H POC Glucose 147 H Hemoglobin A1c Lactic Acid Calcium Phosphorus Magnesium AST Alkaline Phosphatase 130 H Total Creatine Kinase CK-MB (CK-2) CK-MB (CK-2) Rel Index Troponin T C-Reactive Protein Total Protein 6.2 L Albumin 3.0 L HDL Cholesterol Urine WBC (Auto) Urine Creatinine 06/08/19 06/08/19 06/08/19 07:48 17:49 21:47 WBC RBC Hgb Hct RDW Plt Count [place] % (Auto) Lymph # Seg Neutrophils % Seg Neutrophils # PT INR APTT POC ABG pH POC ABG pCO2 POC ABG pO2 Sodium Potassium Chloride Carbon Dioxide BUN Creatinine Glucose POC Glucose 179 H 127 H 161 H Hemoglobin A1c Lactic Acid Calcium Phosphorus Magnesium AST Alkaline Phosphatase Total Creatine Kinase CK-MB (CK-2) CK-MB (CK-2) Rel Index Troponin T C-Reactive Protein Total Protein Albumin HDL Cholesterol Urine WBC (Auto) Urine Creatinine 06/08/19 06/09/19 06/09/19 22:14 03:12 04:34 WBC RBC Hgb Hct RDW Plt Count [place] % (Auto) Lymph # Seg Neutrophils % Seg Neutrophils # PT INR APTT POC ABG pH POC ABG pCO2 POC ABG pO2 Sodium Potassium Chloride Carbon Dioxide BUN Creatinine Glucose POC Glucose 59 L 163 H Hemoglobin A1c 10.8 H Lactic Acid Calcium Phosphorus Magnesium AST Alkaline Phosphatase Total Creatine Kinase CK-MB (CK-2) CK-MB (CK-2) Rel Index Troponin T C-Reactive Protein Total Protein Albumin HDL Cholesterol Urine WBC (Auto) Urine Creatinine 06/09/19 06/09/19 06/09/19 05:02 07:39 08:34 WBC 3.1 L RBC Hgb 10.6 L Hct 31.7 L RDW 17.0 H Plt Count [place] % (Auto) 13.8 H Lymph # 1.0 L Seg Neutrophils % Seg Neutrophils # 1.5 L PT INR APTT POC ABG pH POC ABG pCO2 POC ABG pO2 Sodium Potassium Chloride Carbon Dioxide BUN 37 H Creatinine 2.0 H Glucose 176 H POC Glucose 206 H Hemoglobin A1c Lactic Acid Calcium Phosphorus Magnesium AST Alkaline Phosphatase Total Creatine Kinase CK-MB (CK-2) CK-MB (CK-2) Rel Index Troponin T C-Reactive Protein Total Protein 5.8 L Albumin 2.8 L HDL Cholesterol Urine WBC (Auto) Urine Creatinine 06/09/19 06/09/19 06/10/19 17:55 21:36 05:20 WBC RBC Hgb Hct RDW Plt Count [place] % (Auto) Lymph # Seg Neutrophils % Seg Neutrophils # PT INR APTT POC ABG pH POC ABG pCO2 POC ABG pO2 Sodium Potassium 3.3 L Chloride Carbon Dioxide BUN 34 H Creatinine 2.0 H Glucose 212 H POC Glucose 265 H 132 H Hemoglobin A1c Lactic Acid Calcium Phosphorus Magnesium AST Alkaline Phosphatase Total Creatine Kinase CK-MB (CK-2) CK-MB (CK-2) Rel Index Troponin T C-Reactive Protein Total Protein Albumin HDL Cholesterol Urine WBC (Auto) Urine Creatinine 06/10/19 06/10/19 06/10/19 05:20 07:00 11:48 WBC 4.4 L RBC 3.47 L Hgb 10.0 L Hct 29.6 L RDW 16.9 H Plt Count [place] % (Auto) Lymph # Seg Neutrophils % Seg Neutrophils # PT INR APTT POC ABG pH POC ABG pCO2 POC ABG pO2 Sodium Potassium Chloride Carbon Dioxide BUN Creatinine Glucose POC Glucose 249 H 279 H Hemoglobin A1c Lactic Acid Calcium Phosphorus Magnesium AST Alkaline Phosphatase Total Creatine Kinase CK-MB (CK-2) CK-MB (CK-2) Rel Index Troponin T C-Reactive Protein Total Protein Albumin HDL Cholesterol Urine WBC (Auto) Urine Creatinine 06/10/19 06/10/19 06/10/19 18:25 21:50 23:22 WBC RBC Hgb Hct RDW Plt Count [place] % (Auto) Lymph # Seg Neutrophils % Seg Neutrophils # PT INR APTT POC ABG pH POC ABG pCO2 POC ABG pO2 Sodium Potassium Chloride Carbon Dioxide BUN Creatinine Glucose POC Glucose 157 H 58 L 124 H Hemoglobin A1c Lactic Acid Calcium Phosphorus Magnesium AST Alkaline Phosphatase Total Creatine Kinase CK-MB (CK-2) CK-MB (CK-2) Rel Index Troponin T C-Reactive Protein Total Protein Albumin HDL Cholesterol Urine WBC (Auto) Urine Creatinine 06/11/19 06/11/19 06/11/19 05:15 06:48 11:52 WBC RBC Hgb Hct RDW Plt Count [place] % (Auto) Lymph # Seg Neutrophils % Seg Neutrophils # PT INR APTT POC ABG pH POC ABG pCO2 POC ABG pO2 Sodium Potassium 3.4 L Chloride 108.1 H Carbon Dioxide BUN 30 H Creatinine 2.0 H Glucose 358 H POC Glucose 441 H 339 H Hemoglobin A1c Lactic Acid Calcium Phosphorus Magnesium AST Alkaline Phosphatase Total Creatine Kinase CK-MB (CK-2) CK-MB (CK-2) Rel Index Troponin T C-Reactive Protein Total Protein Albumin HDL Cholesterol Urine WBC (Auto) Urine Creatinine 06/11/19 06/11/19 06/12/19 17:41 23:52 05:38 WBC RBC Hgb Hct RDW Plt Count [place] % (Auto) Lymph # Seg Neutrophils % Seg Neutrophils # PT INR APTT POC ABG pH POC ABG pCO2 POC ABG pO2 Sodium Potassium Chloride 115.2 H Carbon Dioxide 18 L BUN 32 H Creatinine 2.0 H Glucose 164 H POC Glucose 311 H 119 H Hemoglobin A1c Lactic Acid Calcium Phosphorus 1.30 L Magnesium AST Alkaline Phosphatase Total Creatine Kinase CK-MB (CK-2) CK-MB (CK-2) Rel Index Troponin T C-Reactive Protein Total Protein Albumin HDL Cholesterol Urine WBC (Auto) Urine Creatinine 06/12/19 06/12/19 06/12/19 06:41 10:34 11:49 WBC RBC Hgb Hct RDW Plt Count [place] % (Auto) Lymph # Seg Neutrophils % Seg Neutrophils # PT INR APTT POC ABG pH POC ABG pCO2 POC ABG pO2 Sodium Potassium Chloride Carbon Dioxide BUN Creatinine Glucose POC Glucose 178 H 198 H 200 H Hemoglobin A1c Lactic Acid Calcium Phosphorus Magnesium AST Alkaline Phosphatase Total Creatine Kinase CK-MB (CK-2) CK-MB (CK-2) Rel Index Troponin T C-Reactive Protein Total Protein Albumin HDL Cholesterol Urine WBC (Auto) Urine Creatinine 06/12/19 06/12/19 06/13/19 13:30 17:19 04:51 WBC RBC 3.48 L Hgb 10.1 L Hct 30.0 L RDW 18.3 H Plt Count 129 L [place] % (Auto) Lymph # Seg Neutrophils % Seg Neutrophils # PT INR APTT POC ABG pH 7.235 L POC ABG pCO2 POC ABG pO2 200 H Sodium Potassium Chloride Carbon Dioxide BUN Creatinine Glucose POC Glucose 167 H Hemoglobin A1c Lactic Acid Calcium Phosphorus Magnesium AST Alkaline Phosphatase Total Creatine Kinase CK-MB (CK-2) CK-MB (CK-2) Rel Index Troponin T C-Reactive Protein Total Protein Albumin HDL Cholesterol Urine WBC (Auto) Urine Creatinine 06/13/19 06/13/19 06/13/19 04:51 11:45 14:34 WBC RBC Hgb Hct RDW Plt Count [place] % (Auto) Lymph # Seg Neutrophils % Seg Neutrophils # PT INR APTT POC ABG pH 7.184 L POC ABG pCO2 POC ABG pO2 Sodium Potassium Chloride 112.4 H Carbon Dioxide 17 L BUN 36 H Creatinine 2.0 H Glucose 329 H POC Glucose 338 H Hemoglobin A1c Lactic Acid Calcium Phosphorus Magnesium AST Alkaline Phosphatase Total Creatine Kinase CK-MB (CK-2) CK-MB (CK-2) Rel Index Troponin T C-Reactive Protein Total Protein Albumin HDL Cholesterol Urine WBC (Auto) Urine Creatinine 06/13/19 06/13/19 06/13/19 17:39 18:47 20:12 WBC RBC Hgb Hct RDW Plt Count [place] % (Auto) Lymph # Seg Neutrophils % Seg Neutrophils # PT INR APTT POC ABG pH 7.178 L 7.186 L POC ABG pCO2 POC ABG pO2 70 L 74 L Sodium Potassium Chloride Carbon Dioxide BUN Creatinine Glucose POC Glucose Hemoglobin A1c Lactic Acid Calcium Phosphorus Magnesium AST Alkaline Phosphatase Total Creatine Kinase 295 H CK-MB (CK-2) 16.7 H CK-MB (CK-2) Rel Index 5.6 H Troponin T C-Reactive Protein Total Protein Albumin HDL Cholesterol Urine WBC (Auto) Urine Creatinine 06/13/19 06/13/19 06/14/19 21:52 23:52 00:20 WBC RBC Hgb Hct RDW Plt Count [place] % (Auto) Lymph # Seg Neutrophils % Seg Neutrophils # PT INR APTT POC ABG pH POC ABG pCO2 POC ABG pO2 Sodium Potassium Chloride Carbon Dioxide BUN Creatinine Glucose POC Glucose 387 H 321 H Hemoglobin A1c Lactic Acid 4.50 H* Calcium Phosphorus Magnesium AST Alkaline Phosphatase Total Creatine Kinase CK-MB (CK-2) CK-MB (CK-2) Rel Index Troponin T C-Reactive Protein Total Protein Albumin HDL Cholesterol Urine WBC (Auto) Urine Creatinine 06/14/19 06/14/19 06/14/19 01:04 01:38 01:38 WBC 2.7 L RBC Hgb 11.5 L Hct 35.1 L RDW 18.1 H Plt Count [place] % (Auto) Lymph # Seg Neutrophils % Seg Neutrophils # PT INR APTT POC ABG pH 7.259 L POC ABG pCO2 32.8 L POC ABG pO2 79 L Sodium Potassium 3.5 L D Chloride 112.2 H Carbon Dioxide 18 L BUN 39 H Creatinine 2.1 H Glucose 293 H POC Glucose Hemoglobin A1c Lactic Acid Calcium Phosphorus Magnesium AST Alkaline Phosphatase Total Creatine Kinase 195 H CK-MB (CK-2) CK-MB (CK-2) Rel Index Troponin T C-Reactive Protein Total Protein Albumin HDL Cholesterol Urine WBC (Auto) Urine Creatinine 06/14/19 06/14/19 06/14/19 04:55 06:12 08:06 WBC RBC Hgb Hct RDW Plt Count [place] % (Auto) Lymph # Seg Neutrophils % Seg Neutrophils # PT INR APTT POC ABG pH POC ABG pCO2 POC ABG pO2 Sodium Potassium Chloride Carbon Dioxide BUN Creatinine Glucose POC Glucose 233 H Hemoglobin A1c Lactic Acid 4.60 H* 4.70 H* Calcium Phosphorus Magnesium AST Alkaline Phosphatase Total Creatine Kinase CK-MB (CK-2) CK-MB (CK-2) Rel Index Troponin T C-Reactive Protein Total Protein Albumin HDL Cholesterol Urine WBC (Auto) Urine Creatinine 06/14/19 06/14/19 06/14/19 09:02 10:59 11:25 WBC RBC Hgb Hct RDW Plt Count [place] % (Auto) Lymph # Seg Neutrophils % Seg Neutrophils # PT INR APTT POC ABG pH 7.269 L POC ABG pCO2 POC ABG pO2 53 L Sodium Potassium Chloride Carbon Dioxide BUN Creatinine Glucose POC Glucose 121 H Hemoglobin A1c Lactic Acid 5.00 H* Calcium Phosphorus Magnesium AST Alkaline Phosphatase Total Creatine Kinase CK-MB (CK-2) CK-MB (CK-2) Rel Index Troponin T C-Reactive Protein Total Protein Albumin HDL Cholesterol Urine WBC (Auto) Urine Creatinine 06/14/19 06/14/19 06/14/19 12:57 15:21 15:21 WBC RBC Hgb Hct RDW Plt Count [place] % (Auto) Lymph # Seg Neutrophils % Seg Neutrophils # PT INR APTT POC ABG pH 7.306 L POC ABG pCO2 POC ABG pO2 74 L Sodium Potassium Chloride Carbon Dioxide BUN Creatinine Glucose POC Glucose 147 H Hemoglobin A1c Lactic Acid 5.20 H* Calcium Phosphorus Magnesium AST Alkaline Phosphatase Total Creatine Kinase CK-MB (CK-2) CK-MB (CK-2) Rel Index Troponin T C-Reactive Protein Total Protein Albumin HDL Cholesterol Urine WBC (Auto) Urine Creatinine 06/14/19 06/14/19 06/14/19 18:35 18:50 20:43 WBC RBC Hgb Hct RDW Plt Count [place] % (Auto) Lymph # Seg Neutrophils % Seg Neutrophils # PT INR APTT POC ABG pH 7.281 L POC ABG pCO2 POC ABG pO2 Sodium Potassium Chloride Carbon Dioxide BUN Creatinine Glucose POC Glucose 192 H Hemoglobin A1c Lactic Acid Calcium Phosphorus Magnesium AST Alkaline Phosphatase Total Creatine Kinase CK-MB (CK-2) CK-MB (CK-2) Rel Index Troponin T C-Reactive Protein Total Protein Albumin HDL Cholesterol Urine WBC (Auto) > 182.0 H Urine Creatinine 06/15/19 06/15/19 06/15/19 00:20 04:30 04:30 WBC RBC 3.57 L Hgb 10.1 L Hct 30.7 L RDW 18.0 H Plt Count 90 L [place] % (Auto) Lymph # Seg Neutrophils % Seg Neutrophils # PT INR APTT POC ABG pH POC ABG pCO2 POC ABG pO2 Sodium Potassium 5.7 H D Chloride Carbon Dioxide 14 L BUN 47 H Creatinine 3.4 H D Glucose 383 H POC Glucose 334 H Hemoglobin A1c Lactic Acid Calcium 7.5 L D Phosphorus Magnesium AST Alkaline Phosphatase Total Creatine Kinase CK-MB (CK-2) CK-MB (CK-2) Rel Index Troponin T C-Reactive Protein 24.70 H Total Protein Albumin HDL Cholesterol Urine WBC (Auto) Urine Creatinine 06/15/19 06/15/19 06/15/19 04:30 06:24 09:34 WBC RBC Hgb Hct RDW Plt Count [place] % (Auto) Lymph # Seg Neutrophils % Seg Neutrophils # PT INR APTT POC ABG pH POC ABG pCO2 POC ABG pO2 Sodium Potassium Chloride Carbon Dioxide BUN Creatinine Glucose POC Glucose 438 H 413 H Hemoglobin A1c Lactic Acid 8.90 H* Calcium Phosphorus Magnesium AST Alkaline Phosphatase Total Creatine Kinase CK-MB (CK-2) CK-MB (CK-2) Rel Index Troponin T C-Reactive Protein Total Protein Albumin HDL Cholesterol Urine WBC (Auto) Urine Creatinine 06/15/19 06/15/19 06/15/19 09:59 11:49 17:45 WBC RBC Hgb Hct RDW Plt Count [place] % (Auto) Lymph # Seg Neutrophils % Seg Neutrophils # PT INR APTT POC ABG pH POC ABG pCO2 POC ABG pO2 Sodium Potassium Chloride Carbon Dioxide BUN Creatinine Glucose POC Glucose 327 H Hemoglobin A1c Lactic Acid 8.20 H* 5.00 H* Calcium Phosphorus Magnesium AST Alkaline Phosphatase Total Creatine Kinase CK-MB (CK-2) CK-MB (CK-2) Rel Index Troponin T C-Reactive Protein Total Protein Albumin HDL Cholesterol Urine WBC (Auto) Urine Creatinine 06/15/19 06/15/19 06/16/19 17:51 20:55 04:34 WBC RBC Hgb Hct RDW Plt Count [place] % (Auto) Lymph # Seg Neutrophils % Seg Neutrophils # PT INR APTT POC ABG pH 7.517 H 7.541 H POC ABG pCO2 30.7 L POC ABG pO2 63 L 62 L Sodium Potassium Chloride Carbon Dioxide BUN Creatinine Glucose POC Glucose 171 H Hemoglobin A1c Lactic Acid Calcium Phosphorus Magnesium AST Alkaline Phosphatase Total Creatine Kinase CK-MB (CK-2) CK-MB (CK-2) Rel Index Troponin T C-Reactive Protein Total Protein Albumin HDL Cholesterol Urine WBC (Auto) Urine Creatinine 06/16/19 06/16/19 06/16/19 06:43 08:35 Unknown WBC RBC Hgb Hct RDW Plt Count [place] % (Auto) Lymph # Seg Neutrophils % Seg Neutrophils # PT INR APTT POC ABG pH POC ABG pCO2 POC ABG pO2 Sodium Potassium Chloride Carbon Dioxide BUN Creatinine Glucose POC Glucose 127 H Hemoglobin A1c Lactic Acid 3.00 H* 2.50 H* Calcium Phosphorus Magnesium AST Alkaline Phosphatase Total Creatine Kinase CK-MB (CK-2) CK-MB (CK-2) Rel Index Troponin T C-Reactive Protein Total Protein Albumin HDL Cholesterol Urine WBC (Auto) Urine Creatinine 06/16/19 06/16/19 Unknown Unknown WBC RBC Hgb Hct RDW Plt Count [place] % (Auto) Lymph # Seg Neutrophils % Seg Neutrophils # PT 18.6 H INR 1.59 H APTT POC ABG pH POC ABG pCO2 POC ABG pO2 Sodium 146 H Potassium Chloride Carbon Dioxide BUN 54 H Creatinine 3.7 H Glucose 47 L POC Glucose Hemoglobin A1c Lactic Acid Calcium 6.8 L Phosphorus Magnesium AST Alkaline Phosphatase Total Creatine Kinase CK-MB (CK-2) CK-MB (CK-2) Rel Index Troponin T C-Reactive Protein Total Protein Albumin HDL Cholesterol Urine WBC (Auto) Urine Creatinine Allied health notes reviewed: nursing
[2019-06-16] MEDS ORDERED: VANCOMYCIN/NS 1 GM/250 ML 1 GM/250 ML BAG IV ONE (10:00)
--- NOTE | 2019-06-16 10:05 | Progress Note ---
Assessment and Plan Sepsis with septic shock / UTI due to ESBL klebsiella pneumonia / New right sided pneumonia / lactic acidosis ID Physician following. Blood cultures negative thus far. T max 101.7 on 06/14. Cont vasopressor support and wean as tolerated. Acute metabolic encephalopathy Nonresponsive, not on sedation. Head CT with NAF, brain MRI with NAF. S/p neurology evaluation. Acute respiratory failure Intubated. Pulmonary following. Acute kidney injury on CKD / Hyperkalemia Nephrology following. Sinus bradycardia --> Sinus tachycardia Pt initially had sinus bradycardia and subsequently developed sinus tachycardia. Now in NSR. Cont supportive measures and observation on telemetry. Cardiomyopathy - EF 25-30% Echo done 05/19/2019 showed EF 25-30%, pericardium thickened and calcified, LV mild to mod dilated, mild to mod LVH, LA mildly dilated, trace MR, trace TR. Pt was recommended stress test to r/o ischemic CMP at that time but pt refused stress test. No current clinical evidence of acutely decompensated HF. No BB or ACEI/ARB at this time in setting of hypotension and renal insufficiency. Anemia / thrombocytopenia Monitor CBC. Hold ASA at this time. DM with hyperglycemia Dementia Severe malnutrition BMI 14.7 s/p PEG tube placement 06/09/2019 Overall prognosis is poor. Continue current management. The patient has been seen in conjunction with Dr. Messer who agrees with the assessment and plan of care. Subjective Date of service: 06/16/19 Principal diagnosis: Ac hypoxemic resp failure; Septic shock; PAPITO; Thrombocytopenia; HFrEF Interval history: pt remains intubated, unresponsive, not on sedation. requiring vaso and levophed gtts. in SR with HR 90s, no bradycardia noted overnight. no family at bedside. Objective Last Vital Signs Temp 99.8 F H 06/16/19 03:32 Pulse 92 H 06/16/19 09:09 Resp 25 H 06/16/19 09:09 BP 100/56 06/16/19 09:08 Pulse Ox 96 06/16/19 09:08 - Physical Examination General: Other (patient is intubated on ventilator.) HEENT: Positive: PERRL Neck: Positive: neck supple, trachea midline Cardiac: Positive: Reg Rate and Rhythm, S1/S2 Lungs: Positive: Decreased Breath Sounds Neuro: Positive: Other ( patient is intubated. Nonresponsive) Abdomen: Positive: Soft Skin: Negative: Rash Musculoskeletal: No Pain Extremities: Present: Other (patient has a dressing on the leg.). Absent: edema - Labs and Meds Coagulation 06/16/19 Range/Units Unknown PT 18.6 H (12.2-14.9) Sec. INR 1.59 H (0.87-1.13) Comprehensive Metabolic Panel 06/15/19 06/16/19 Range/Units 21:23 Unknown Sodium 146 H (137-145) mmol/L Potassium 4.8 4.1 (3.6-5.0) mmol/L Chloride 102.4 (98-107) mmol/L Carbon Dioxide 30 D (22-30) mmol/L BUN 54 H (9-20) mg/dL Creatinine 3.7 H (0.8-1.5) mg/dL Glucose 47 L (75-100) mg/dL Calcium 6.8 L (8.4-10.2) mg/dL - Imaging and Cardiology EKG: report reviewed, image reviewed Echo: report reviewed ( 05/19/2019 showed EF 25-30%, pericardium thickened and calcified, LV mild to mod dilated, mild to mod LVH, LA mildly dilated, trace MR, trace TR. ) - EKG Sinus rhythms and dysrhythmias: sinus bradycardia - Allied health notes Allied health notes reviewed: nursing
--- NOTE | 2019-06-16 10:57 | Progress Note ---
Assessment and Plan Previous Cultures: 05/19/2019 Blood: no growth 05/19/2019 Urine: ESBL Klebsiella Cultures: 06/14/19 BCX - NGTD 06/14/19 trach asp - MRSA 06/05/2019 Urine: ESBL Klebsiella 06/05/2019 Blood: NGTD A/P: 68 yo M PMHx dementia, malnutrition, GERD, HTN admitted with AMS, ESBL UTI. 1) Septic shcok secondary to MRSA pneumonia - On pressors. Also with new R sided pneumonia. Initially with severe sepsis secondary to ESBL UTI Renal US - no acute infective processes or stone. L renal cysts. 2) Metabolic encephalopathy: - remains altered, With slight improvement. CT head normal. Brain MRI shows stable chronic encephalomalacia in the left frontal lobe and left cerebellar hemisphere. Verbal defects expected. Neurology following. 3) Dementia 4) GERD 5) Malnutrition - s/p EGD and Peg placement 06/09/19 6) HTN 7) PAPITO v/s CKD: renally dose abx. Recs: - continue vancomycin and renally adjusted meropenem - f/u Bcx - poor prognosis - CBC with diff in AM (ordered) - OK for PICC when 06/14/19 BCX negative for 48 hours D/W Dr. Barone. We will continue to follow with you. We appreciate being involved in Mr. Paulino's care. Aissatou Mccormick MD [facility] ([facility] ([facility]) C: [phone] O: [phone] F: [phone] Subjective Date of service: 06/16/19 Principal diagnosis: Ac hypoxemic resp failure; Septic shock; PAPITO; Thrombocytopenia; HFrEF Interval history: Not responsive to verbal commands. Per nursing brainstem reflexes present. Objective - Exam Narrative Exam: Constitutional: awake, no distress, doesn't follow commands. Head, Ears, Nose: Normocephalic, atraumatic. External ears, nose normal Eyes: Conjunctivae/corneas clear. No icterus. No ptosis. Neck: Supple, no meningeal signs Oral: Intubated Cardiovascular: S1, S2 normal. Normal rhythm Respiratory: Good air entry, clear to auscultation bilaterally GI: Soft, non-tender; bowel sounds normal. No peritoneal signs Musculoskeletal: No pedal edema Skin: Numerous abrasion and excoriations on all extremities. R thigh bandaged. Hem/Lymphatic: No palpable cervical or supraclavicular nodes. No lymphangitis Psych: no agitation Neurological: Not moving, intubated, not responsive. - Constitutional Vitals: Vital Signs Temp Pulse Resp BP Pulse Ox 99.8 F H 92 H 25 H 100/56 96 06/16/19 03:32 06/16/19 09:09 06/16/19 09:09 06/16/19 09:08 06/16/19 09:08 Temperature -Last 24 Hours Temperature 99.8 F Temperature 97.6 F Temperature 98.8 F Temperature 97.7 F Temperature 98 F - Labs CBC & Chem 7: 06/15/19 04:30 06/16/19 Unknown Labs: Abnormal lab results 06/15/19 06/15/19 06/15/19 Range/Units 11:49 17:45 17:51 PT (12.2-14.9) Sec. INR (0.87-1.13) POC ABG pH 7.517 H (7.35-7.45) POC ABG pCO2 (35-45) POC ABG pO2 63 L (80-105) Sodium (137-145) mmol/L BUN (9-20) mg/dL Creatinine (0.8-1.5) mg/dL Glucose (75-100) mg/dL POC Glucose 327 H (70-105) Lactic Acid 5.00 H* (0.7-2.0) mmol/L Calcium (8.4-10.2) mg/dL 06/15/19 06/16/19 06/16/19 Range/Units 20:55 04:34 06:43 PT (12.2-14.9) Sec. INR (0.87-1.13) POC ABG pH 7.541 H (7.35-7.45) POC ABG pCO2 30.7 L (35-45) POC ABG pO2 62 L (80-105) Sodium (137-145) mmol/L BUN (9-20) mg/dL Creatinine (0.8-1.5) mg/dL Glucose (75-100) mg/dL POC Glucose 171 H 127 H (70-105) Lactic Acid (0.7-2.0) mmol/L Calcium (8.4-10.2) mg/dL 06/16/19 06/16/1906/16/19 Range/Units 08:35 Unknown Unknown PT 18.6 H (12.2-14.9) Sec. INR 1.59 H (0.87-1.13) POC ABG pH (7.35-7.45) POC ABG pCO2 (35-45) POC ABG pO2 (80-105) Sodium (137-145) mmol/L BUN (9-20) mg/dL Creatinine (0.8-1.5) mg/dL Glucose (75-100) mg/dL POC Glucose (70-105) Lactic Acid 3.00 H* 2.50 H* (0.7-2.0) mmol/L Calcium (8.4-10.2) mg/dL 06/16/19 Range/Units Unknown PT (12.2-14.9) Sec. INR (0.87-1.13) POC ABG pH (7.35-7.45) POC ABG pCO2 (35-45) POC ABG pO2 (80-105) Sodium 146 H (137-145) mmol/L BUN 54 H (9-20) mg/dL Creatinine 3.7 H (0.8-1.5) mg/dL Glucose 47 L (75-100) mg/dL POC Glucose (70-105) Lactic Acid (0.7-2.0) mmol/L Calcium 6.8 L (8.4-10.2) mg/dL
[2019-06-16] MEDS: FERROUS SULFATE PO SCH ×2 (11:09→22:03)
[2019-06-16] MEDS: Vasostrict 20 UNIT in NACL 0.9% 100 ML IV SCH ×2 (11:09→22:05)
[2019-06-16] MEDS: LACTATED RINGERS 1,000 ML IV SCH ×2 (11:10→22:05)
--- NOTE | 2019-06-16 14:07 | Progress Note ---
Assessment and Plan 1. Acute kidney injury: Vasomotor PAPITO superimposed on CKD stage 3 in the setting of shock. Renal function continue to decline. Monitor renal function. Renal prognosis is guarded. Avoid nephrotoxic agents. Meds dosage based on GFR. 2. FEN: Hypokalemia, Kayexalate ordered. Hypernatremia, monitor. Metabolic acidosis, improved. Monitor lytes. 3. Septic shock: On Levophed and Vasopressin. 4. Respiratory failure: On vent. 5. Metabolic Encephalopathy. 6. Anemia: POA. 7. Dysphagia: S/p PEG tube. 8. Adult failure to thrive: Malnourished. Subjective Date of service: 06/16/19 Principal diagnosis: Ac hypoxemic resp failure; Septic shock; PAPITO; T hrombocytopenia; HFrEF Interval history: Patient was seen and examined at the bedside. Patient remain intubated and on vent. Objective - Vital Signs Vital signs: Vital Signs - 12hr 06/16/19 06/16/19 06/16/19 02:10 02:20 02:30 Temperature Pulse Rate 97 H 96 H 103 H Pulse Rate [ Anterior Bilateral Throughout] Pulse Rate [ From Monitor] Respiratory 25 H 25 H 26 H Rate Respiratory Rate [Anterior Bilateral Throughout] Blood Pressure 109/66 115/65 127/71 O2 Sat by Pulse 97 97 96 Oximetry 06/16/19 06/16/19 06/16/19 02:40 02:50 03:00 Temperature Pulse Rate 103 H 98 H 97 H Pulse Rate [ Anterior Bilateral Throughout] Pulse Rate [ From Monitor] Respiratory Rate Respiratory Rate [Anterior Bilateral Throughout] Blood Pressure 110/68 100/61 107/59 O2 Sat by Pulse 96 93 94 Oximetry 06/16/19 06/16/19 06/16/19 03:10 03:20 03:30 Temperature Pulse Rate 97 H 99 H 99 H Pulse Rate [ Anterior Bilateral Throughout] Pulse Rate [ From Monitor] Respiratory Rate Respiratory Rate [Anterior Bilateral Throughout] Blood Pressure 100/61 116/61 107/58 O2 Sat by Pulse 94 95 95 Oximetry 06/16/19 06/16/19 06/16/19 03:32 03:40 03:50 Temperature 99.8 F H Pulse Rate 94 H 94 H Pulse Rate [ Anterior Bilateral Throughout] Pulse Rate [ From Monitor] Respiratory Rate Respiratory Rate [Anterior Bilateral Throughout] Blood Pressure 107/59 95/53 O2 Sat by Pulse 96 96 Oximetry 06/16/19 06/16/19 06/16/19 04:00 04:10 04:20 Temperature Pulse Rate 93 H 93 H 93 H Pulse Rate [ 95 H Anterior Bilateral Throughout] Pulse Rate [ 120 H From Monitor] Respiratory 30 H Rate Respiratory 25 H Rate [Anterior Bilateral Throughout] Blood Pressure 71/43 107/58 93/61 O2 Sat by Pulse 98 96 96 Oximetry 06/16/19 06/16/19 06/16/19 04:30 04:40 04:50 Temperature Pulse Rate 92 H 94 H 93 H Pulse Rate [ Anterior Bilateral Throughout] Pulse Rate [ From Monitor] Respiratory Rate Respiratory Rate [Anterior Bilateral Throughout] Blood Pressure 101/57 101/57 105/58 O2 Sat by Pulse 97 99 97 Oximetry 06/16/19 06/16/19 06/16/19 05:00 05:10 05:20 Temperature Pulse Rate 92 H 95 H 95 H Pulse Rate [ Anterior Bilateral Throughout] Pulse Rate [ From Monitor] Respiratory Rate Respiratory Rate [Anterior Bilateral Throughout] Blood Pressure 82/34 82/34 97/58 O2 Sat by Pulse 95 94 94 Oximetry 06/16/19 06/16/19 06/16/19 05:30 05:40 05:50 Temperature Pulse Rate 95 H 94 H 95 H Pulse Rate [ Anterior Bilateral Throughout] Pulse Rate [ From Monitor] Respiratory Rate Respiratory Rate [Anterior Bilateral Throughout] Blood Pressure 109/61 109/61 112/67 O2 Sat by Pulse 95 95 95 Oximetry 06/16/19 06/16/19 06/16/19 06:00 06:10 06:20 Temperature Pulse Rate 94 H 92 H 93 H Pulse Rate [ Anterior Bilateral Throughout] Pulse Rate [ From Monitor] Respiratory Rate Respiratory Rate [Anterior Bilateral Throughout] Blood Pressure 107/62 107/62 117/88 O2 Sat by Pulse 95 96 99 Oximetry 06/16/19 06/16/19 06/16/19 06:30 06:40 06:50 Temperature Pulse Rate 98 H 93 H 92 H Pulse Rate [ Anterior Bilateral Throughout] Pulse Rate [ From Monitor] Respiratory Rate Respiratory Rate [Anterior Bilateral Throughout] Blood Pressure 118/79 118/79 107/73 O2 Sat by Pulse 97 97 97 Oximetry 06/16/19 06/16/19 06/16/19 07:00 07:10 07:20 Temperature Pulse Rate 93 H 92 H 91 H Pulse Rate [ Anterior Bilateral Throughout] Pulse Rate [ From Monitor] Respiratory Rate Respiratory Rate [Anterior Bilateral Throughout] Blood Pressure 115/71 115/71 117/66 O2 Sat by Pulse 97 97 96 Oximetry 06/16/19 06/16/19 06/16/19 07:30 07:40 07:50 Temperature Pulse Rate 92 H 90 89 Pulse Rate [ Anterior Bilateral Throughout] Pulse Rate [ From Monitor] Respiratory Rate Respiratory Rate [Anterior Bilateral Throughout] Blood Pressure 121/67 121/67 128/68 O2 Sat by Pulse 96 96 96 Oximetry 06/16/19 06/16/19 06/16/19 08:00 08:10 08:20 Temperature 99.5 F Pulse Rate 90 92 H 92 H Pulse Rate [ Anterior Bilateral Throughout] Pulse Rate [ 92 H From Monitor] Respiratory Rate Respiratory Rate [Anterior Bilateral Throughout] Blood Pressure 99/58 99/58 128/68 O2 Sat by Pulse 95 95 95 Oximetry 06/16/19 06/16/19 06/16/19 08:30 08:40 08:50 Temperature Pulse Rate 89 89 91 H Pulse Rate [ Anterior Bilateral Throughout] Pulse Rate [ From Monitor] Respiratory Rate Respiratory Rate [Anterior Bilateral Throughout] Blood Pressure 84/48 84/48 95/63 O2 Sat by Pulse 95 94 95 Oximetry 06/16/19 06/16/19 06/16/19 09:00 09:08 09:09 Temperature Pulse Rate 91 H 92 H Pulse Rate [ 94 H Anterior Bilateral Throughout] Pulse Rate [ From Monitor] Respiratory Rate Respiratory 24 Rate [Anterior Bilateral Throughout] Blood Pressure 100/56 100/56 O2 Sat by Pulse 95 96 Oximetry 06/16/19 06/16/19 06/16/19 09:10 09:20 09:30 Temperature Pulse Rate 91 H 90 91 H Pulse Rate [ Anterior Bilateral Throughout] Pulse Rate [ From Monitor] Respiratory Rate Respiratory Rate [Anterior Bilateral Throughout] Blood Pressure 100/56 110/63 110/67 O2 Sat by Pulse 96 97 98 Oximetry 06/16/19 06/16/19 06/16/19 09:40 09:50 10:00 Temperature Pulse Rate 92 H 90 92 H Pulse Rate [ Anterior Bilateral Throughout] Pulse Rate [ From Monitor] Respiratory Rate Respiratory Rate [Anterior Bilateral Throughout] Blood Pressure 110/67 112/63 119/66 O2 Sat by Pulse 98 98 98 Oximetry 06/16/19 06/16/19 06/16/19 10:10 10:20 10:30 Temperature Pulse Rate 93 H 89 91 H Pulse Rate [ Anterior Bilateral Throughout] Pulse Rate [ From Monitor] Respiratory Rate Respiratory Rate [Anterior Bilateral Throughout] Blood Pressure 119/66 104/66 103/64 O2 Sat by Pulse 97 97 98 Oximetry 06/16/19 06/16/19 06/16/19 10:40 10:50 11:00 Temperature Pulse Rate 88 91 H 91 H Pulse Rate [ Anterior Bilateral Throughout] Pulse Rate [ From Monitor] Respiratory Rate Respiratory Rate [Anterior Bilateral Throughout] Blood Pressure 103/64 113/67 116/66 O2 Sat by Pulse 97 97 97 Oximetry 06/16/19 06/16/19 06/16/19 11:10 11:20 11:30 Temperature Pulse Rate 88 90 89 Pulse Rate [ Anterior Bilateral Throughout] Pulse Rate [ From Monitor] Respiratory Rate Respiratory Rate [Anterior Bilateral Throughout] Blood Pressure 116/66 92/55 95/57 O2 Sat by Pulse 96 97 98 Oximetry 06/16/19 06/16/19 06/16/19 11:40 11:50 12:00 Temperature 98.5 F Pulse Rate 89 87 87 Pulse Rate [ Anterior Bilateral Throughout] Pulse Rate [ 87 From Monitor] Respiratory Rate Respiratory Rate [Anterior Bilateral Throughout] Blood Pressure 95/57 87/57 89/57 O2 Sat by Pulse 98 97 97 Oximetry 06/16/19 06/16/19 06/16/19 12:10 12:20 12:30 Temperature Pulse Rate 88 89 87 Pulse Rate [ Anterior Bilateral Throughout] Pulse Rate [ From Monitor] Respiratory Rate Respiratory Rate [Anterior Bilateral Throughout] Blood Pressure 89/57 95/63 94/58 O2 Sat by Pulse 97 97 97 Oximetry 06/16/19 06/16/19 06/16/19 12:40 12:50 13:00 Temperature Pulse Rate 87 106 H 107 H Pulse Rate [ Anterior Bilateral Throughout] Pulse Rate [ From Monitor] Respiratory Rate Respiratory Rate [Anterior Bilateral Throughout] Blood Pressure 94/58 138/82 130/80 O2 Sat by Pulse 97 95 94 Oximetry 06/16/19 06/16/19 13:14 13:45 Temperature Pulse Rate 100 H Pulse Rate [ 88 Anterior Bilateral Throughout] Pulse Rate [ From Monitor] Respiratory Rate Respiratory 16 Rate [Anterior Bilateral Throughout] Blood Pressure 123/72 O2 Sat by Pulse 96 Oximetry - General Appearance General appearance: well-developed, appears stated age, sedated on ventilator, intubated EENT: ATNC Neck: other (Trachea midline) Respiratory: Present: Clear to Ascultation Cardiology: regular, S1S2, no murmurs Gastrointestinal: normoactive bowel sounds, no tenderness, other (PEG tube, condom catheter) Integumentary: no rash, warm and dry Neurologic: obtunded Musculoskeletal: other (no edema) - Lab 06/15/19 04:30 06/16/19 Unknown Most recent lab results Calcium 6.8 mg/dL (8.4-10.2) L 06/16/19 Unknown Phosphorus 4.50 mg/dL (2.5-4.5) D 06/15/19 04:30 Magnesium 1.90 mg/dL (1.7-2.3) 06/15/19 04:30 102.7 mg/dL (0.1-20.0) H 06/06/19 17:37 47 mmol/L 06/06/19 17:37 Medications & Allergies - Medications Allergies/Adverse Reactions: Allergies No Known Allergies Allergy (Verified 05/19/19 22:08) Home Medications: Home Medications Medication Instructions Recorded Confirmed Last Taken Type Cholestyramine/Aspartame 239.4 mg PO TID 05/20/19 06/05/19 Unknown History [Cholestyramine Light Powder] Famotidine [Pepcid] 20 mg PO BID 05/20/19 06/05/19 Unknown History Ferrous Gluconate [Fergon 240 MG 240 mg PO BID 05/20/19 06/05/19 Unknown History tab] Finasteride [Proscar] 5 mg PO DAILY 05/20/19 06/05/19 Unknown History Mirtazapine [Remeron 15mg TAB] 15 mg PO QHS 05/20/19 06/05/19 Unknown History Tamsulosin [Flomax] 0.4 mg PO QDAY 05/20/19 06/05/19 Unknown History Vitamin B Complex [B Complex] 1 each PO DAILY 05/20/19 06/05/19 Unknown History Aspirin EC 81 mg PO QDAY tablet 05/22/19 06/05/19 Unknown Rx Insulin Regular, Human [HumuLIN R] 0 units SUB-Q ACHS units 05/22/19 06/05/19 Unknown Rx Megestrol [Megace] 400 mg PO QDAY oral.liqd 05/22/19 06/05/19 Unknown Rx Insulin NPH/Regular [NovoLIN 70/30] 10 unit SQ BIDDIAB #1 vial 05/27/19 06/05/19 Unknown Rx Metoprolol [Lopressor TAB] 12.5 mg PO BID #60 tablet 05/27/19 06/05/19 Unknown Rx amLODIPine [Norvasc] 10 mg PO QDAY #60 tablet 05/27/19 06/05/19 Unknown Rx Active Medications: Generic Name Dose Route Start Last Admin Trade Name Freq PRN Reason Stop Dose Admin Acetaminophen 650 mg 06/08/19 14:58 Tylenol PO Q4H PRN Pain MILD(1-3)/Fever >100.5/POLANCO Albuterol 2.5 mg 06/14/19 14:00 06/16/19 13:44 Proventil IH 2.5 mg Q6HRT ELIZABETH Administration Lipase/Protease/Amylase 1 each 06/09/19 16:[address] 10,500 Unit FEEDTUBE PRN PRN For Clogged Feeding Tube Cholestyramine Resin 4 gm 06/05/19 20:00 06/16/19 13:39 Questran PO 4 gm TID ELIZABETH Administration Dextrose 50 ml 06/05/19 14:03 06/16/19 06:14 D50w (25gm) Syringe IV 50 ml PRN PRN Administration Hypoglycemia Famotidine 20 mg 06/05/19 22:00 06/16/19 09:09 Pepcid PO 20 mg DAILY ELIZABETH Administration Fentanyl 50 mcg 06/14/19 11:17 Sublimaze IV Q10MIN PRN ANALGESIA Ferrous Sulfate 308 mg 06/16/19 10:00 06/16/19 11:09 Ferrous Sulfate PO 308 mg BID ELIZABETH Administration Finasteride 5 mg 06/06/19 10:00 06/16/19 09:09 Proscar PO 5 mg DAILY ELIZABETH Administration Hydralazine HCl 10 mg 06/07/19 14:00 06/07/19 13:42 Apresoline IV 10 mg Q3HR PRN Administration Elevated BP Hydrophilic Ointment 1 applic 06/14/19 11:17 Vaseline Lip Therapy TP Q2HR PRN Dry Lips Norepinephrine 4 mg in 250 mls @ 7.5 mls/hr 06/14/19 06:15 06/16/19 13:30 Levophed Drip 4 Mg/Ns 250 Ml IV 4 mcg/min TITR ELIZABETH 15 mls/hr Titration Protocol 2 MCG/MIN Fentanyl Citrate 2,000 mcg in 100 mls @ 2.46 mls/hr 06/14/19 12:00 06/15/19 08:24 Fentanyl Drip Premix IV 0 mcg/kg/hr TITR ELIZABETH 0 mls/hr Titration Protocol 1 MCG/KG/HR Vasopressin 20 unit/ Sodium 101 mls @ 9.09 mls/hr 06/14/19 14:00 06/16/19 11:09 Chloride IV 0.03 units/min TITR ELIZABETH 9.09 mls/hr Administration Protocol 0.03 UNITS/MIN Meropenem 500 mg in 50 mls @ 50 mls/hr 06/16/19 10:00 06/16/19 09:08 Merrem/Ns 500 Mg/50 Ml IV 50 mls/hr Q24HR ELIZABETH Administration Lactated Ringer's 1,000 mls @ 75 mls/hr 06/16/19 11:00 06/16/19 11:10 Lactated Ringers IV 75 mls/hr DIRECT ELIZABETH Administration Insulin Human Lispro 0 unit 06/13/19 20:00 06/16/19 08:45 Humalog SUB-Q Not Given Q6H [facility] Protocol Mirtazapine 15 mg 06/05/19 22:00 06/15/19 22:26 Remeron PO 15 mg QHS ELIZABETH Administration Multi-Ingred Cream/Lotion/Oil/Oint 1 applic 06/14/19 11:17 Artificial Tears Ophth Oint OU Q4HR PRN Dry Eye(s) Ondansetron HCl 4 mg 06/08/19 14:58 Zofran IV Q8H PRN Nausea And Vomiting Oxycodone/Acetaminophen 1 tab 06/08/19 14:58 Percocet 5/325 PO Q6H PRN Pain, Moderate (4-6) Simple Syrup 15 ml 06/09/19 16:01 Simple Syrup FEEDTUBE PRN PRN Hypoglycemia Simple Syrup 30 ml 06/09/19 16:01 Simple Syrup FEEDTUBE PRN PRN Hypoglycemia Sodium Bicarbonate 325 mg 06/09/19 16:01 Sodium Bicarbonate FEEDTUBE PRN PRN For Clogged Feeding Tube Sodium Chloride 10 ml 06/05/19 22:00 06/16/19 09:10 Sodium Chloride Flush Syringe 10 Ml IV 10 ml BID ELIZABETH Administration Sodium Chloride 10 ml 06/05/19 14:00 06/13/19 13:04 Sodium Chloride Flush Syringe 10 Ml IV 10 ml PRN PRN Administration LINE FLUSH Tamsulosin HCl 0.4 mg 06/06/19 10:00 06/16/19 09:09 Flomax PO 0.4 mg QDAY ELIZABETH Administration Vitamin B Complex/Vitamin C 1 each 06/06/19 10:00 06/16/19 09:09 Allbee With C PO 1 each QDAY ELIZABETH Administration
[2019-06-16] MEDS ORDERED: NACL 0.9% 1000 ML 1,000 ML IV ONE ×2 (18:00→18:30)
--- NOTE | 2019-06-16 18:00 | Progress Note ---
Assessment and Plan Assessment and plan: patient is 68 YO Male with Dementia, Severe Malnutrition, GERD, HTN presented to ED for evaluation. Patient was stuporous and unable to provide history. Pt history provided by his son. As per son, the patient has experienced progressive weakness over 3 weeks, but is able to care for himself. Patient was in his usual state of health few days earlier. Patient was found by his son to be confused, unable to stand, nonverbal and not following commands. EMS notified and patient brought to hospital . He was seen and evaluated in ED and found to have Metabolic Encephalopathy, Acute Kidney Injury, Acidosis, Severe Malnutrition, UTI, and Volume Depletion. Patient admitted to [facility]. Further work up revea led sepsis due to ESBL klebsiella pneumoniae. He was evaluated by Neurology, MRI unremarkable. He had bradycardia in 40s was seen by cardiology. He became worse, hypotensive, transferred to ICU started on Pressors, had acute resp failure, intubated. he is currently on 2 pressors, intubated, worsening renal function. Family wants everything done. Full code. Acute metabolic encephalopathy Neurochecks Neurology following MRI Brain neg for stroke Acute respiratory failure s/p intubated on 06/14 Was tried on BIPAP prior to intubation Pulmonology following Shock - Likely cardiogenic shock On Levophed and vasopressin Sepsis, present on admission due to UTI On Merrem, Vancomycin started by ID Physician ID Physician following Lactic acidosis UTI due to ESBL Klebsiella pneumoniae ID Physician following Cardiomyopathy EF 25-30% Acute kidney injury, worsening Wong placed due to urinary retention Flomax already in place Renal us, shows medical renal disease Nephrology following Dementia Monitor Neurochecks Diabetes mellitus type 2 Fingerstick q 6h Severe malnutrition BMI only 14.7 s/p PEG tube placed Sinus Bradycardia EKG sinus clarissa at 47 On 06/13 heart rate went low as 38, started on Dopamine drip, now discontinued Cardiology following Full code status Prognosis guarded The high probability of a clinically significant, sudden or life threatening deterioration of the [Pulmoanry, renal, neurology] system(s) required my full and direct attention, intervention and personal management. The aggregate critical care time was [45] minutes. This time is in addition to time spent performing reported procedures but includes the following: [x] Data Review and interpretation [x] Patient assessment and monitoring of vital signs [x] Documentation [x] Medication orders and management History Interval history: Patient seen and examined still on the Ventilator. Per Nurse poor urine output reported although over 800 on wong insertion. Hospitalist Physical - Physical exam Narrative exam: Gen: Not in acute distress, malnourished, very ill looking,intubated HEENT: Normocephalic, atraumatic Neck: supple, no JVD Heart: S1 and S2 reg, no murmurs, rubs or gallop Lungs: Clear to auscultation, no wheeze Abd: soft, non tender, non distended, normal BS, PEG tube Ext: No edema, no clubbing, no cyanosis Neuro: lethargic, Intubated - Constitutional Vitals: Temp Pulse Resp BP Pulse Ox 98.5 F 94 H 16 108/62 92 06/16/19 12:00 06/16/19 17:44 06/16/19 13:45 06/16/19 17:44 06/16/19 17:44 General appearance: Present: other (lethargic, withdrawn) Results - Labs CBC & Chem 7: 06/15/19 04:30 06/16/19 Unknown Labs: Laboratory Last Values WBC 10.7 K/mm3 (4.5-11.0) 06/15/19 04:30 RBC 3.57 M/mm3 (3.65-5.03) L 06/15/19 04:30 Hgb 10.1 gm/dl (11.8-15.2) L 06/15/19 04:30 Hct 30.7 % (35.5-45.6) L 06/15/19 04:30 MCV 86 fl (84-94) 06/15/19 04:30 MCH 28 pg (28-32) 06/15/19 04:30 MCHC 33 % (32-34) 06/15/19 04:30 RDW 18.0 % (13.2-15.2) H 06/15/19 04:30 Plt Count 90 K/mm3 (140-440) L 06/15/19 04:30 Lymph % (Auto) 32.7 % (13.4-35.0) 06/09/19 07:39 [place] % (Auto) 13.8 % (0.0-7.3) H 06/09/19 07:39 Eos % (Auto) 3.9 % (0.0-4.3) 06/09/19 07:39 Baso % (Auto) 0.9 % (0.0-1.8) 06/09/19 07:39 Lymph # 1.0 K/mm3 (1.2-5.4) L 06/09/19 07:39 [place] # 0.4 K/mm3 (0.0-0.8) 06/09/19 07:39 Eos # 0.1 K/mm3 (0.0-0.4) 06/09/19 07:39 Baso # 0.0 K/mm3 (0.0-0.1) 06/09/19 07:39 Seg Neutrophils % 48.7 % (40.0-70.0) 06/09/19 07:39 Seg Neutrophils # 1.5 K/mm3 (1.8-7.7) L 06/09/19 07:39 PT 18.6 Sec. (12.2-14.9) H 06/16/19 Unknown INR 1.59 (0.87-1.13) H 06/16/19 Unknown APTT 37.7 Sec. (24.2-36.6) H 06/05/19 11:11 POC ABG pH 7.397 (7.35-7.45) 06/16/19 17:47 POC ABG pCO2 44.3 (35-45) 06/16/19 17:47 POC ABG pO2 66 (80-105) L 06/16/19 17:47 POC ABG HCO3 27.2 (22-26 mml/L) 06/16/19 17:47 POC ABG Total CO2 29 (23-27mmol/L) 06/16/19 17:47 POC ABG O2 Sat 92 06/16/19 17:47 POC ABG Base Excess 2 ((-2) - (+3)mmol/L) 06/16/19 17:47 30 % 06/16/19 17:47 Sodium 146 mmol/L (137-145) H 06/16/19 Unknown Potassium 4.1 mmol/L (3.6-5.0) 06/16/19 Unknown Chloride 102.4 mmol/L (98-107) 06/16/19 Unknown Carbon Dioxide 30 mmol/L (22-30) D 06/16/19 Unknown 18 mmol/L 06/16/19 Unknown BUN 54 mg/dL (9-20) H 06/16/19 Unknown 3.7 mg/dL (0.8-1.5) H 06/16/19 Unknown Estimated GFR 20 ml/min 06/16/19 Unknown 15 % 06/16/19 Unknown Glucose 47 mg/dL (75-100) L 06/16/19 Unknown POC Glucose 72 (70-105) 06/16/19 08:50 10.8 % (4-6) H 06/08/19 22:14 Lactic Acid 2.50 mmol/L (0.7-2.0) H* 06/16/19 Unknown Calcium 6.8 mg/dL (8.4-10.2) L 06/16/19 Unknown Phosphorus 4.50 mg/dL (2.5-4.5) D 06/15/19 04:30 Magnesium 1.90 mg/dL (1.7-2.3) 06/15/19 04:30 0.30 mg/dL (0.1-1.2) 06/09/19 05:02 AST 28 units/L (5-40) 06/09/19 05:02 ALT 36 units/L (7-56) 06/09/19 05:02 125 units/L (35-129) 06/09/19 05:02 48.0 umol/L (25-60) 06/11/19 17:44 195 units/L (55-170) H 06/14/19 01:38 CK-MB (CK-2) 16.7 ng/mL (0.0-4.0) H 06/13/19 18:47 CK-MB (CK-2) Rel Index 5.6 (0-4) H 06/13/19 18:47 0.011 ng/mL (0.00-0.029) 06/14/19 01:38 24.70 mg/dL (0.00-1.30) H 06/15/19 04:30 NT-Pro-B Natriuret Pep 446.0 pg/mL (0-900) 06/05/19 11:11 5.8 g/dL (6.3-8.2) L 06/09/19 05:02 2.8 g/dL (3.9-5) L 06/09/19 05:02 0.9 % 06/09/19 05:02 Triglycerides 60 mg/dL (2-149) 06/05/19 11:11 Cholesterol 181 mg/dL (50-199) 06/05/19 11:11 68 mg/dL (50-130) 06/05/19 11:11 115 mg/dL (40-59) H 06/05/19 11:11 1.57 % 06/05/19 11:11 TSH 0.630 mlU/mL (0.270-4.200) 06/05/19 13:26 Free T4 1.04 ng/dL (0.76-1.46) 06/05/19 13:26 Yellow (Yellow) 06/14/19 18:35 Cloudy (Clear) 06/14/19 18:35 5.0 (5.0-7.0) 06/14/19 18:35 Ur Specific [place] 1.009 (1.003-1.030) 06/14/19 18:35 <15 mg/dl mg/dL (Negative) 06/14/19 18:35 >=500 mg/dL (Negative) 06/14/19 18:35 Neg mg/dL (Negative) 06/14/19 18:35 Sm (Negative) 06/14/19 18:35 Neg (Negative) 06/14/19 18:35 Neg (Negative) 06/14/19 18:35 < 2.0 mg/dL (<2.0) 06/14/19 18:35 Ur Leukocyte Esterase Lg (Negative) 06/14/19 18:35 > 182.0 /HPF (0.0-6.0) H 06/14/19 18:35 13.0 /HPF (0.0-6.0) 06/14/19 18:35 3+ /HPF (Negative) 06/14/19 18:35 2+ /HPF 06/14/19 18:35 Few /HPF 06/14/19 18:35 2+ /HPF 06/14/19 18:35 102.7 mg/dL (0.1-20.0) H 06/06/19 17:37 47 mmol/L 06/06/19 17:37 Random Vancomycin 7.0 ug/mL (0-40.0) 06/16/19 Unknown Active Medications - Current Medications Current Medications: Generic Name Dose Route Start Last Admin Trade Name Freq PRN Reason Stop Dose Admin Acetaminophen 650 mg 06/08/19 14:58 Tylenol PO Q4H PRN Pain MILD(1-3)/Fever >100.5/POLANCO Albuterol 2.5 mg 06/14/19 14:00 06/16/19 13:44 Proventil IH 2.5 mg Q6HRT ELIZABETH Administration Lipase/Protease/Amylase 1 each 06/09/19 16:01 Pancrerojelio Freed 10,500 Unit FEEDTUBE PRN PRN For Clogged Feeding Tube Cholestyramine Resin 4 gm 06/05/19 20:00 06/16/19 13:39 Questran PO 4 gm TID ELIZABETH Administration Dextrose 50 ml 06/05/19 14:03 06/16/19 06:14 D50w (25gm) Syringe IV 50 ml PRN PRN Administration Hypoglycemia Famotidine 20 mg 06/05/19 22:00 06/16/19 09:09 Pepcid PO 20 mg DAILY ELIZABETH Administration Fentanyl 50 mcg 06/14/19 11:17 Sublimaze IV Q10MIN PRN ANALGESIA Ferrous Sulfate 308 mg 06/16/19 10:00 06/16/19 11:09 Ferrous Sulfate PO 308 mg BID ELIZABETH Administration Finasteride 5 mg 06/06/19 10:00 06/16/19 09:09 Proscar PO 5 mg DAILY ELIZABETH Administration Hydralazine HCl 10 mg 06/07/19 14:00 06/07/19 13:42 Apresoline IV 10 mg Q3HR PRN Administration Elevated BP Hydrophilic Ointment 1 applic 06/14/19 11:17 Vaseline Lip Therapy TP Q2HR PRN Dry Lips Norepinephrine 4 mg in 250 mls @ 7.5 mls/hr 06/14/19 06:15 06/16/19 13:30 Levophed Drip 4 Mg/Ns 250 Ml IV 4 mcg/min TITR ELIZABETH 15 mls/hr Titration Protocol 2 MCG/MIN Fentanyl Citrate 2,000 mcg in 100 mls @ 2.46 mls/hr 06/14/19 12:00 06/15/19 08:24 Fentanyl Drip Premix IV 0 mcg/kg/hr TITR ELIZABETH 0 mls/hr Titration Protocol 1 MCG/KG/HR Vasopressin 20 unit/ Sodium 101 mls @ 9.09 mls/hr 06/14/19 14:00 06/16/19 11:09 Chloride IV 0.03 units/min TITR ELIZABETH 9.09 mls/hr Administration Protocol 0.03 UNITS/MIN Meropenem 500 mg in 50 mls @ 50 mls/hr 06/16/19 10:00 06/16/19 09:08 Merrem/Ns 500 Mg/50 Ml IV 50 mls/hr Q24HR ELIZABETH Administration Lactated Ringer's 1,000 mls @ 75 mls/hr 06/16/19 11:00 06/16/19 11:10 Lactated Ringers IV 75 mls/hr DIRECT ELIZABETH Administration Sodium Chloride 1,000 mls @ 999 mls/hr 06/16/19 18:00 Nacl 0.9% 1000 Ml IV 06/16/19 19:00 BOLUS ONE Insulin Human Lispro 0 unit 06/13/19 20:00 06/16/19 14:45 Humalog SUB-Q Not Given Q6H [facility] Protocol Mirtazapine 15 mg 06/05/19 22:00 06/15/19 22:26 Remeron PO 15 mg QHS ELIZABETH Administration Multi-Ingred Cream/Lotion/Oil/Oint 1 applic 06/14/19 11:17 Artificial Tears Ophth Oint OU Q4HR PRN Dry Eye(s) Ondansetron HCl 4 mg 06/08/19 14:58 Zofran IV Q8H PRN Nausea And Vomiting Oxycodone/Acetaminophen 1 tab 06/08/19 14:58 Percocet 5/325 PO Q6H PRN Pain, Moderate (4-6) Simple Syrup 15 ml 06/09/19 16:01 Simple Syrup FEEDTUBE PRN PRN Hypoglycemia Simple Syrup 30 ml 06/09/19 16:01 Simple Syrup FEEDTUBE PRN PRN Hypoglycemia Sodium Bicarbonate 325 mg 06/09/19 16:01 Sodium Bicarbonate FEEDTUBE PRN PRN For Clogged Feeding Tube Sodium Chloride 10 ml 06/05/19 22:00 06/16/19 09:10 Sodium Chloride Flush Syringe 10 Ml IV 10 ml BID ELIZABETH Administration Sodium Chloride 10 ml 06/05/19 14:00 06/13/19 13:04 Sodium Chloride Flush Syringe 10 Ml IV 10 ml PRN PRN Administration LINE FLUSH Tamsulosin HCl 0.4 mg 06/06/19 10:00 06/16/19 09:09 Flomax PO 0.4 mg QDAY ELIZABETH Administration Vitamin B Complex/Vitamin C 1 each 06/06/19 10:00 06/16/19 09:09 Allbee With C PO 1 each QDAY ELIZABETH Administration Nutrition/Malnutrition Assess - Dietary Evaluation Nutrition/Malnutrition Findings: Nutrition Notes Start: 06/06/19 08:45 Freq: Status: Active Protocol: Document 06/15/19 15:12 RM (Rec: 06/15/19 15:32 RM [id number]) Nutrition Notes Initial or Follow up Reassessment Current Diagnosis Acute Kidney Injury,Decubitus( Pressure Ulcer),Sepsis, Hypertension,Malnutrition Other Pertinent Diagnosis Dementia, GERD, UTI, Metabolic encephalopathy Current Diet Glucerna 1.2 at 65ml/hr Labs/Tests K 5.7 Pertinent Medications Reviewed Height 6 ft Weight 49.2 kg [place] Body Weight (kg) 80.90 BMI 14.7 Subjective/Other Information Consulted for evaluate nutritional intake. Observed Glucerna infusing at goal rate. Per nurse pt is tolerating TF. Percent of energy/protein needs met: 95%/100% Burn Absent Trauma Absent #1 Nutrition Diagnosis Malnutrition Diagnosis Progress(for reassessment Continues documentation) Is patient on ventilator? No Is Patient Ambulatory and/or Out of Bed No REE-([facility]-confined to bed) 1571.844 Kcal/Kg value to use for calculation 40 Approximate Energy Requirements Using 1968 kcal/Kg Calculation Used for Recommendations Kcal/kg Additional Notes Pro needs 1.2-1.5g/k-74g/ day Fluid needs 1ml/kcal Nutrition Intervention Nutrition Support: Nepro at 45 ml/hr Water flush of 200 mls q 4 hrs Kcal 1,944 Protein (gm) 87 Fluid (mL) 785 Goal #1 Meet at least 80% of kcal and protein needs via TF Goal #2 Wt maintenance and/or gain Anticipated Discharge Needs: Unable to determine at this time Follow-Up By: 06/17/19 Additional Comments Follow for TF tolerance, K lab
[2019-06-16] MEDS: REMERON PO SCH (22:03)
[2019-06-17] MEDS: PROVENTIL IH SCH ×4 (01:30→19:52)
[2019-06-17] MEDS: HumaLOG SUB-Q SCH ×4 (02:00→20:00)
--- NOTE | 2019-06-17 03:27 | XRay Report ---
CHEST 1 VIEW INDICATION / CLINICAL INFORMATION: follow up respiratory failure. COMPARISON: 06/16/2019 FINDINGS: SUPPORT DEVICES: Endotracheal tube remains in place in good position. HEART / MEDIASTINUM: No significant abnormality. LUNGS / PLEURA: Bilateral lung consolidation probably unchanged given the expiratory technique. No si gnificant effusions. No pneumothorax. ADDITIONAL FINDINGS: No significant additional findings. IMPRESSION: 1. No significant change Signer Name: Tyler Osorio MD Signed: 06/17/2019 3:22 AM Workstation Name: [id number]
[2019-06-17 06:23] LABS: INR 1.23 (0.87-1.13)
[2019-06-17 06:48] LABS: Hematocrit 21.6 % (35.5-45.6); Hemoglobin 7.3 gm/dl (11.8-15.2); Mean Corpuscular HGB Conc 34 % (32-34); Mean Corpuscular Volume 85 fl (84-94); Red Blood Count 2.55 M/mm3 (3.65-5.03); Red Cell Distribution Width 16.7 % (13.2-15.2)
[2019-06-17 08:14] LABS: Anisocytosis 1+; Basophils % (Manual) 0 % (0.0-1.8); Eosinophils % (Manual) 0 % (0.0-4.3); Hypochromasia Few; Platelet Estimate Consistent w Auto; Poikilocytosis Few; Total Cells Counted 100
--- NOTE | 2019-06-17 08:28 | Progress Note ---
Assessment and Plan Acute hypoxemic respiratory failure on MVS Severe Sepsis with shock Acute metabolic encephalopathy Acute renal failure Severe protein calorie malnutrition Sinus Bradycardia Thrombocytopenia Cardiomyopathy EF 25% Metabolic acidosis, probably secondary to sepsis and renal failure Leucopenia - hyperventilate acutely to compensate for severe metabolic acidosis - avoid hyperglycemia Sterile water with 3 amps bicarbonate per liter started @ 150 mls/hr - aggressive volume resuscitation while septic keeping HFrEF in mind (EF 25%), base excess is -12 Give one bolus of LR, ABG and lactic acid levels at 5pm. - discontinue femoral CVL and place PICC line - Wean supplemental oxygen to keep O2 sats>90% - VAP bundle addressed - continue bronchodilators with pulmonary hygiene per RT - continue lung protective strategies - continue enteric nutrition via PEG at goal rate as tolerated -Aspiration precautions, HOB >40 - continue anti-infective's per ID rec's (de-escalate based on clinical and microbiologic data) - discontinue heparin for VTE prophylaxis, has thrombocytopenia, use SCDs for now while montoring platelet counts - continue to monitor for bleeding - continue mobility protocols to prevent pressure ulcers - Cardio-protective measures - continue to avoid nephrotoxins, adjust all medications for GFR, CrcL - Azotemia per nephrology team - wean vasopressors to keep MAP > 65 mmHg - on vasopressin and norepinephrine - continue chronic disease med's per attending - daily SAT's and SBT assessment as tolerated - Titrate sedation to RASS 0 to -1 - continue accuchecks with glycemic control per SSI for target blood glucose 140 - 180 mg/dL acutely - Agitation management - Prevention of delirium, maintenance of sleep-wake cycle - Stress ulcer prophylaxis - continue other care per attending / other consultants .... re-evaluate in am & prn CONDITION: CRITICAL PROGNOSIS: GUARDED CODE STATUS: FULL The high probability of a clinically significant, sudden or life-threatening deterioration of the [respiratory, renal and cardiac] system(s) required my full and direct attention, intervention and personal management. The aggregate critical care time was [35] minutes without overlap. Time includes spent on; [x] Data Review and interpretation [x] Patient assessment and monitoring of vital signs [x] Documentation [x] Medication orders and management Subjective Date of service: 06/17/19 Principal diagnosis: Ac hypoxemic resp failure; Septic shock; PAPITO; Thrombocytopenia; HFrEF Interval history: Patient is seen today for: Acute hypoxemic respiratory failure; Severe sepsis w ith shock; Acute metabolic encephalopathy; Acute renal failure; Severe protein calorie malnutrition; Sinus Bradycardia; Thrombocytopenia; Cardiomyopathy EF 25%; Metabolic acidosis; Leucopenia Seen and examined at bedside; 24hour events reviewed; nursing and respiratory care staff consulted; no adverse overnight events reported to me; on mechanical ventilatory support, awake and alert, on vasopressors- norepinephrine, vasopressin, no documented fevers, no vomiting, tolerating tube feeding at goal, right femoral CVC Objective Vital Signs - 12hr 06/16/19 06/16/19 06/16/19 20:30 20:40 20:50 Temperature Pulse Rate 84 84 83 Pulse Rate [ Anterior Bilateral Throughout] Pulse Rate [ From Monitor] Pulse Rate [ Left Dorsalis Pedis] Pulse Rate [ None] Pulse Rate [ Right Brachial] Pulse Rate [ Right Dorsalis Pedis] Respiratory 4 L Rate Respiratory Rate [Anterior Bilateral Throughout] Blood Pressure 129/70 121/77 138/77 O2 Sat by Pulse 96 96 96 Oximetry 06/16/19 06/16/19 06/16/19 21:00 21:10 21:20 Temperature Pulse Rate 81 81 79 Pulse Rate [ 82 Anterior Bilateral Throughout] Pulse Rate [ From Monitor] Pulse Rate [ Left Dorsalis Pedis] Pulse Rate [ None] Pulse Rate [ Right Brachial] Pulse Rate [ Right Dorsalis Pedis] Respiratory Rate Respiratory 17 Rate [Anterior Bilateral Throughout] Blood Pressure 112/64 112/64 100/65 O2 Sat by Pulse 97 97 97 Oximetry 06/16/19 06/16/19 06/16/19 21:30 21:40 21:50 Temperature Pulse Rate 81 80 83 Pulse Rate [ Anterior Bilateral Throughout] Pulse Rate [ From Monitor] Pulse Rate [ Left Dorsalis Pedis] Pulse Rate [ None] Pulse Rate [ Right Brachial] Pulse Rate [ Right Dorsalis Pedis] Respiratory Rate Respiratory Rate [Anterior Bilateral Throughout] Blood Pressure 104/65 138/77 99/63 O2 Sat by Pulse 97 97 97 Oximetry 06/16/19 06/16/19 06/16/19 22:00 22:10 22:20 Temperature Pulse Rate 82 84 82 Pulse Rate [ Anterior Bilateral Throughout] Pulse Rate [ From Monitor] Pulse Rate [ Left Dorsalis Pedis] Pulse Rate [ None] Pulse Rate [ Right Brachial] Pulse Rate [ Right Dorsalis Pedis] Respiratory Rate Respiratory Rate [Anterior Bilateral Throughout] Blood Pressure 103/78 103/78 104/65 O2 Sat by Pulse 97 96 96 Oximetry 06/16/19 06/16/19 06/16/19 22:30 22:37 22:40 Temperature Pulse Rate 84 97 H 99 H Pulse Rate [ Anterior Bilateral Throughout] Pulse Rate [ From Monitor] Pulse Rate [ Left Dorsalis Pedis] Pulse Rate [ None] Pulse Rate [ Right Brachial] Pulse Rate [ Right Dorsalis Pedis] Respiratory Rate Respiratory Rate [Anterior Bilateral Throughout] Blood Pressure 114/64 114/64 104/65 O2 Sat by Pulse 95 94 93 Oximetry 06/16/19 06/16/19 06/16/19 22:47 22:50 22:56 Temperature Pulse Rate 86 87 90 Pulse Rate [ Anterior Bilateral Throughout] Pulse Rate [ From Monitor] Pulse Rate [ Left Dorsalis Pedis] Pulse Rate [ None] Pulse Rate [ Right Brachial] Pulse Rate [ Right Dorsalis Pedis] Respiratory Rate Respiratory Rate [Anterior Bilateral Throughout] Blood Pressure 98/57 98/57 98/57 O2 Sat by Pulse 93 92 93 Oximetry 06/16/19 06/16/19 06/16/19 23:00 23:02 23:09 Temperature Pulse Rate 87 89 Pulse Rate [ Anterior Bilateral Throughout] Pulse Rate [ 81 From Monitor] Pulse Rate [ 89 Left Dorsalis Pedis] Pulse Rate [ None] Pulse Rate [ 81 Right Brachial] Pulse Rate [ 89 Right Dorsalis Pedis] Respiratory Rate Respiratory Rate [Anterior Bilateral Throughout] Blood Pressure 92/54 92/54 O2 Sat by Pulse 93 93 95 Oximetry 06/16/19 06/16/19 06/16/19 23:10 23:20 23:30 Temperature Pulse Rate 89 90 86 Pulse Rate [ Anterior Bilateral Throughout] Pulse Rate [ From Monitor] Pulse Rate [ Left Dorsalis Pedis] Pulse Rate [ None] Pulse Rate [ Right Brachial] Pulse Rate [ Right Dorsalis Pedis] Respiratory Rate Respiratory Rate [Anterior Bilateral Throughout] Blood Pressure 98/57 95/59 103/59 O2 Sat by Pulse 96 94 94 Oximetry 06/16/19 06/16/19 06/16/19 23:31 23:34 23:40 Temperature 97.6 F Pulse Rate 83 85 Pulse Rate [ Anterior Bilateral Throughout] Pulse Rate [ From Monitor] Pulse Rate [ Left Dorsalis Pedis] Pulse Rate [ None] Pulse Rate [ Right Brachial] Pulse Rate [ Right Dorsalis Pedis] Respiratory 1 L Rate Respiratory Rate [Anterior Bilateral Throughout] Blood Pressure 103/59 95/59 O2 Sat by Pulse 93 92 Oximetry 06/16/19 06/17/19 06/17/19 23:50 00:00 00:10 Temperature Pulse Rate 88 84 85 Pulse Rate [ Anterior Bilateral Throughout] Pulse Rate [ From Monitor] Pulse Rate [ Left Dorsalis Pedis] Pulse Rate [ None] Pulse Rate [ Right Brachial] Pulse Rate [ Right Dorsalis Pedis] Respiratory Rate Respiratory Rate [Anterior Bilateral Throughout] Blood Pressure 99/60 87/57 103/59 O2 Sat by Pulse 93 94 93 Oximetry 06/17/19 06/17/19 06/17/19 00:20 00:30 00:40 Temperature Pulse Rate 90 89 87 Pulse Rate [ Anterior Bilateral Throughout] Pulse Rate [ From Monitor] Pulse Rate [ Left Dorsalis Pedis] Pulse Rate [ None] Pulse Rate [ Right Brachial] Pulse Rate [ Right Dorsalis Pedis] Respiratory Rate Respiratory Rate [Anterior Bilateral Throughout] Blood Pressure 103/55 103/55 99/60 O2 Sat by Pulse 93 94 93 Oximetry 06/17/19 06/17/19 06/17/19 00:50 01:00 01:10 Temperature Pulse Rate 85 86 84 Pulse Rate [ Anterior Bilateral Throughout] Pulse Rate [ From Monitor] Pulse Rate [ Left Dorsalis Pedis] Pulse Rate [ None] Pulse Rate [ Right Brachial] Pulse Rate [ Right Dorsalis Pedis] Respiratory Rate Respiratory Rate [Anterior Bilateral Throughout] Blood Pressure 95/56 108/61 108/61 O2 Sat by Pulse 94 94 95 Oximetry 06/17/19 06/17/19 06/17/19 01:20 01:30 01:40 Temperature Pulse Rate 85 87 81 Pulse Rate [ Anterior Bilateral Throughout] Pulse Rate [ From Monitor] Pulse Rate [ Left Dorsalis Pedis] Pulse Rate [ None] Pulse Rate [ Right Brachial] Pulse Rate [ Right Dorsalis Pedis] Respiratory Rate Respiratory Rate [Anterior Bilateral Throughout] Blood Pressure 106/59 103/57 103/57 O2 Sat by Pulse 95 94 95 Oximetry 06/17/19 06/17/19 06/17/19 01:50 02:00 02:07 Temperature Pulse Rate 86 79 Pulse Rate [ 88 Anterior Bilateral Throughout] Pulse Rate [ From Monitor] Pulse Rate [ Left Dorsalis Pedis] Pulse Rate [ None] Pulse Rate [ Right Brachial] Pulse Rate [ Right Dorsalis Pedis] Respiratory Rate Respiratory 15 Rate [Anterior Bilateral Throughout] Blood Pressure 109/66 109/66 O2 Sat by Pulse 95 95 Oximetry 06/17/19 06/17/19 06/17/19 02:10 02:20 02:30 Temperature Pulse Rate 85 90 84 Pulse Rate [ Anterior Bilateral Throughout] Pulse Rate [ From Monitor] Pulse Rate [ Left Dorsalis Pedis] Pulse Rate [ None] Pulse Rate [ Right Brachial] Pulse Rate [ Right Dorsalis Pedis] Respiratory Rate Respiratory Rate [Anterior Bilateral Throughout] Blood Pressure 101/53 103/63 116/65 O2 Sat by Pulse 94 95 97 Oximetry 06/17/19 06/17/19 06/17/19 02:40 02:50 03:00 Temperature Pulse Rate 81 81 81 Pulse Rate [ Anterior Bilateral Throughout] Pulse Rate [ From Monitor] Pulse Rate [ Left Dorsalis Pedis] Pulse Rate [ None] Pulse Rate [ Right Brachial] Pulse Rate [ Right Dorsalis Pedis] Respiratory Rate Respiratory Rate [Anterior Bilateral Throughout] Blood Pressure 116/65 97/56 94/64 O2 Sat by Pulse 92 93 95 Oximetry 06/17/19 06/17/19 06/17/19 03:10 03:20 03:25 Temperature Pulse Rate 87 90 87 Pulse Rate [ Anterior Bilateral Throughout] Pulse Rate [ From Monitor] Pulse Rate [ Left Dorsalis Pedis] Pulse Rate [ None] Pulse Rate [ Right Brachial] Pulse Rate [ Right Dorsalis Pedis] Respiratory Rate Respiratory Rate [Anterior Bilateral Throughout] Blood Pressure 94/64 88/67 111/64 O2 Sat by Pulse 92 90 Oximetry 06/17/19 06/17/19 06/17/19 03:30 03:40 03:50 Temperature Pulse Rate 83 85 86 Pulse Rate [ Anterior Bilateral Throughout] Pulse Rate [ From Monitor] Pulse Rate [ Left Dorsalis Pedis] Pulse Rate [ None] Pulse Rate [ Right Brachial] Pulse Rate [ Right Dorsalis Pedis] Respiratory Rate Respiratory Rate [Anterior Bilateral Throughout] Blood Pressure 93/55 93/55 99/60 O2 Sat by Pulse 90 92 92 Oximetry 06/17/19 06/17/19 06/17/19 04:00 04:10 04:20 Temperature 97.7 F Pulse Rate 85 83 83 Pulse Rate [ Anterior Bilateral Throughout] Pulse Rate [ 83 From Monitor] Pulse Rate [ 83 Left Dorsalis Pedis] Pulse Rate [ None] Pulse Rate [ 83 Right Brachial] Pulse Rate [ 83 Right Dorsalis Pedis] Respiratory Rate Respiratory Rate [Anterior Bilateral Throughout] Blood Pressure 107/61 107/61 106/58 O2 Sat by Pulse 94 95 94 Oximetry 06/17/19 06/17/19 06/17/19 04:30 04:40 04:50 Temperature Pulse Rate 84 83 82 Pulse Rate [ Anterior Bilateral Throughout] Pulse Rate [ From Monitor] Pulse Rate [ Left Dorsalis Pedis] Pulse Rate [ None] Pulse Rate [ Right Brachial] Pulse Rate [ Right Dorsalis Pedis] Respiratory Rate Respiratory Rate [Anterior Bilateral Throughout] Blood Pressure 103/56 103/56 107/63 O2 Sat by Pulse 94 95 95 Oximetry 06/17/19 06/17/19 06/17/19 05:00 05:10 05:20 Temperature Pulse Rate 86 82 83 Pulse Rate [ Anterior Bilateral Throughout] Pulse Rate [ From Monitor] Pulse Rate [ Left Dorsalis Pedis] Pulse Rate [ None] Pulse Rate [ Right Brachial] Pulse Rate [ Right Dorsalis Pedis] Respiratory Rate Respiratory Rate [Anterior Bilateral Throughout] Blood Pressure 109/63 109/63 109/63 O2 Sat by Pulse 95 94 94 Oximetry 06/17/19 06/17/19 06/17/19 05:30 05:40 05:50 Temperature Pulse Rate 82 83 82 Pulse Rate [ Anterior Bilateral Throughout] Pulse Rate [ From Monitor] Pulse Rate [ Left Dorsalis Pedis] Pulse Rate [ None] Pulse Rate [ Right Brachial] Pulse Rate [ Right Dorsalis Pedis] Respiratory Rate Respiratory Rate [Anterior Bilateral Throughout] Blood Pressure 102/62 102/62 110/66 O2 Sat by Pulse 94 94 94 Oximetry 06/17/19 06/17/19 06/17/19 06:00 06:10 06:20 Temperature Pulse Rate 82 81 81 Pulse Rate [ Anterior Bilateral Throughout] Pulse Rate [ From Monitor] Pulse Rate [ Left Dorsalis Pedis] Pulse Rate [ None] Pulse Rate [ Right Brachial] Pulse Rate [ Right Dorsalis Pedis] Respiratory Rate Respiratory Rate [Anterior Bilateral Throughout] Blood Pressure 110/66 92/62 107/62 O2 Sat by Pulse 94 95 97 Oximetry 06/17/19 06/17/19 06/17/19 06:30 06:41 06:51 Temperature Pulse Rate 83 81 82 Pulse Rate [ Anterior Bilateral Throughout] Pulse Rate [ From Monitor] Pulse Rate [ Left Dorsalis Pedis] Pulse Rate [ None] Pulse Rate [ Right Brachial] Pulse Rate [ Right Dorsalis Pedis] Respiratory Rate Respiratory Rate [Anterior Bilateral Throughout] Blood Pressure 108/65 107/62 104/64 O2 Sat by Pulse 96 95 95 Oximetry 06/17/19 06/17/19 06/17/19 07:00 07:11 07:21 Temperature Pulse Rate 83 81 82 Pulse Rate [ Anterior Bilateral Throughout] Pulse Rate [ From Monitor] Pulse Rate [ Left Dorsalis Pedis] Pulse Rate [ None] Pulse Rate [ Right Brachial] Pulse Rate [ Right Dorsalis Pedis] Respiratory Rate Respiratory Rate [Anterior Bilateral Throughout] Blood Pressure 99/66 99/66 99/66 O2 Sat by Pulse 96 96 96 Oximetry 06/17/19 06/17/19 06/17/19 07:30 07:32 07:41 Temperature Pulse Rate 83 81 81 Pulse Rate [ Anterior Bilateral Throughout] Pulse Rate [ From Monitor] Pulse Rate [ Left Dorsalis Pedis] Pulse Rate [ None] Pulse Rate [ Right Brachial] Pulse Rate [ Right Dorsalis Pedis] Respiratory 13 Rate Respiratory Rate [Anterior Bilateral Throughout] Blood Pressure 111/63 111/63 111/63 O2 Sat by Pulse 97 96 98 Oximetry 06/17/19 06/17/19 06/17/19 07:51 08:00 08:11 Temperature 97.1 F L Pulse Rate 77 82 83 Pulse Rate [ 81 Anterior Bilateral Throughout] Pulse Rate [ From Monitor] Pulse Rate [ Left Dorsalis Pedis] Pulse Rate [ 85 None] Pulse Rate [ Right Brachial] Pulse Rate [ Right Dorsalis Pedis] Respiratory 11 L Rate Respiratory 11 L Rate [Anterior Bilateral Throughout] Blood Pressure 107/66 117/63 117/63 O2 Sat by Pulse 96 97 97 Oximetry Constitutional: lethargic, other (elderly looking, emaciated AAM, normocephalic and atraumatic with increased respiratory effort at rest) Eyes: non-icteric ENT: oropharynx moist, other (ETT 23 cm GLORIA) Neck: supple, no lymphadenopathy, no JVD Effort: mildly labored Ascultation: Bilateral: diminished breath sounds, rales Percussion: Bilateral: not dull Cardiovascular: regular rate and rhythm, other (tachycardia) Gastrointestinal: normoactive bowel sounds, soft, non-tender, non-distended Integumentary: rash, decubitus ulcer Extremities: no cyanosis, no edema, pulses normal, no ischemia or petechiae, other (left tibial IO device) Neurologic: other (awake and alert, not obeying commands) Psychiatric: other (Unable to assess re AMS) CBC and BMP: 06/17/19 05:54 06/16/19 Unknown ABG, PT/INR, D-dimer: ABG POC ABG pH 7.400 (7.35-7.45) 06/17/19 04:30 POC ABG pCO2 37.7 (35-45) 06/17/19 04:30 POC ABG pO2 63 (80-105) L 06/17/19 04:30 POC ABG HCO3 23.4 (22-26 mml/L) 06/17/19 04:30 POC ABG Total CO2 24 (23-27mmol/L) 06/17/19 04:30 POC ABG O2 Sat 92 06/17/19 04:30 PT/INR, D-dimer PT 15.2 Sec. (12.2-14.9) H 06/17/19 05:54 INR 1.23 (0.87-1.13) H 06/17/19 05:54 Abnormal lab findings: Abnormal Labs 06/05/19 06/05/19 06/05/19 10:24 11:11 11:11 WBC RBC Hgb 11.2 L Hct 33.2 L RDW 17.3 H Plt Count [place] % (Auto) Lymph # 0.9 L Seg Neutrophils % 76.0 H Nucleated RBC % Seg Neutrophils # Seg Neutrophils # Man Lymphocytes # (Manual) PT INR APTT 37.7 H POC ABG pH POC ABG pCO2 POC ABG pO2 Sodium Potassium Chloride Carbon Dioxide BUN Creatinine Glucose POC Glucose 125 H Hemoglobin A1c Lactic Acid Calcium Phosphorus Magnesium AST Alkaline Phosphatase Total Creatine Kinase CK-MB (CK-2) CK-MB (CK-2) Rel Index Troponin T C-Reactive Protein Total Protein Albumin HDL Cholesterol Urine WBC (Auto) Urine Creatinine 06/05/19 06/05/19 06/05/19 11:11 11:11 11:36 WBC RBC Hgb Hct RDW Plt Count [place] % (Auto) Lymph # Seg Neutrophils % Nucleated RBC % Seg Neutrophils # Seg Neutrophils # Man Lymphocytes # (Manual) PT INR APTT POC ABG pH POC ABG pCO2 POC ABG pO2 Sodium 147 H Potassium Chloride 115.9 H Carbon Dioxide 18 L BUN 45 H Creatinine 2.4 H Glucose 118 H POC Glucose 109 H Hemoglobin A1c Lactic Acid 0.50 L Calcium Phosphorus Magnesium AST Alkaline Phosphatase 147 H Total Creatine Kinase CK-MB (CK-2) CK-MB (CK-2) Rel Index Troponin T 0.047 H C-Reactive Protein Total Protein Albumin 3.5 L HDL Cholesterol 115 H Urine WBC (Auto) Urine Creatinine 06/05/19 06/05/19 06/05/19 13:21 14:03 16:16 WBC RBC Hgb Hct RDW Plt Count [place] % (Auto) Lymph # Seg Neutrophils % Nucleated RBC % Seg Neutrophils # Seg Neutrophils # Man Lymphocytes # (Manual) PT INR APTT POC ABG pH POC ABG pCO2 POC ABG pO2 Sodium Potassium Chloride Carbon Dioxide BUN Creatinine Glucose POC Glucose 56 L Hemoglobin A1c Lactic Acid 0.50 L Calcium Phosphorus Magnesium AST Alkaline Phosphatase Total Creatine Kinase CK-MB (CK-2) CK-MB (CK-2) Rel Index Troponin T C-Reactive Protein Total Protein Albumin HDL Cholesterol Urine WBC (Auto) 14.0 H Urine Creatinine 06/05/19 06/05/19 06/05/19 18:52 19:38 20:07 WBC RBC Hgb Hct RDW Plt Count [place] % (Auto) Lymph # Seg Neutrophils % Nucleated RBC % Seg Neutrophils # Seg Neutrophils # Man Lymphocytes # (Manual) PT INR APTT POC ABG pH POC ABG pCO2 POC ABG pO2 Sodium Potassium Chloride Carbon Dioxide BUN Creatinine Glucose 128 H POC Glucose < 40 L 140 H Hemoglobin A1c Lactic Acid Calcium Phosphorus Magnesium AST Alkaline Phosphatase Total Creatine Kinase CK-MB (CK-2) CK-MB (CK-2) Rel Index Troponin T C-Reactive Protein Total Protein Albumin HDL Cholesterol Urine WBC (Auto) Urine Creatinine 06/05/19 06/06/19 06/06/19 21:46 02:06 04:22 WBC RBC Hgb Hct RDW 18.1 H Plt Count [place] % (Auto) Lymph # Seg Neutrophils % 71.8 H Nucleated RBC % Seg Neutrophils # Seg Neutrophils # Man Lymphocytes # (Manual) PT INR APTT POC ABG pH POC ABG pCO2 POC ABG pO2 Sodium Potassium Chloride Carbon Dioxide BUN Creatinine Glucose POC Glucose 141 H 213 H Hemoglobin A1c Lactic Acid Calcium Phosphorus Magnesium AST Alkaline Phosphatase Total Creatine Kinase CK-MB (CK-2) CK-MB (CK-2) Rel Index Troponin T C-Reactive Protein Total Protein Albumin HDL Cholesterol Urine WBC (Auto) Urine Creatinine 06/06/19 06/06/19 06/06/19 04:22 05:20 07:42 WBC RBC Hgb Hct RDW Plt Count [place] % (Auto) Lymph # Seg Neutrophils % Nucleated RBC % Seg Neutrophils # Seg Neutrophils # Man Lymphocytes # (Manual) PT INR APTT POC ABG pH POC ABG pCO2 POC ABG pO2 Sodium Potassium 5.1 H Chloride 112.2 H Carbon Dioxide 13 L BUN 44 H Creatinine 2.3 H Glucose 182 H POC Glucose 237 H 247 H Hemoglobin A1c Lactic Acid Calcium Phosphorus Magnesium 2.60 H AST 45 H Alkaline Phosphatase 164 H Total Creatine Kinase CK-MB (CK-2) CK-MB (CK-2) Rel Index Troponin T C-Reactive Protein Total Protein Albumin 3.5 L HDL Cholesterol Urine WBC (Auto) Urine Creatinine 06/06/19 06/06/19 06/06/19 10:48 13:19 17:34 WBC RBC Hgb Hct RDW Plt Count [place] % (Auto) Lymph # Seg Neutrophils % Nucleated RBC % Seg Neutrophils # Seg Neutrophils # Man Lymphocytes # (Manual) PT INR APTT POC ABG pH POC ABG pCO2 POC ABG pO2 Sodium Potassium Chloride Carbon Dioxide BUN Creatinine Glucose POC Glucose 167 H 108 H < 40 L Hemoglobin A1c Lactic Acid Calcium Phosphorus Magnesium AST Alkaline Phosphatase Total Creatine Kinase CK-MB (CK-2) CK-MB (CK-2) Rel Index Troponin T C-Reactive Protein Total Protein Albumin HDL Cholesterol Urine WBC (Auto) Urine Creatinine 06/06/19 06/06/19 06/06/19 17:37 18:10 20:50 WBC RBC Hgb Hct RDW Plt Count [place] % (Auto) Lymph # Seg Neutrophils % Nucleated RBC % Seg Neutrophils # Seg Neutrophils # Man Lymphocytes # (Manual) PT INR APTT POC ABG pH POC ABG pCO2 POC ABG pO2 Sodium Potassium Chloride Carbon Dioxide BUN Creatinine Glucose 71 L POC Glucose 227 H Hemoglobin A1c Lactic Acid Calcium Phosphorus Magnesium AST Alkaline Phosphatase Total Creatine Kinase CK-MB (CK-2) CK-MB (CK-2) Rel Index Troponin T C-Reactive Protein Total Protein Albumin HDL Cholesterol Urine WBC (Auto) Urine Creatinine 102.7 H 06/07/19 06/07/19 06/07/19 02:36 05:40 07:59 WBC RBC Hgb Hct RDW Plt Count [place] % (Auto) Lymph # Seg Neutrophils % Nucleated RBC % Seg Neutrophils # Seg Neutrophils # Man Lymphocytes # (Manual) PT INR APTT POC ABG pH POC ABG pCO2 POC ABG pO2 Sodium Potassium Chloride Carbon Dioxide BUN Creatinine Glucose POC Glucose 144 H 183 H 207 H Hemoglobin A1c Lactic Acid Calcium Phosphorus Magnesium AST Alkaline Phosphatase Total Creatine Kinase CK-MB (CK-2) CK-MB (CK-2) Rel Index Troponin T C-Reactive Protein Total Protein Albumin HDL Cholesterol Urine WBC (Auto) Urine Creatinine 06/07/19 06/07/19 06/07/19 11:40 14:35 15:12 WBC RBC Hgb Hct RDW Plt Count [place] % (Auto) Lymph # Seg Neutrophils % Nucleated RBC % Seg Neutrophils # Seg Neutrophils # Man Lymphocytes # (Manual) PT INR APTT POC ABG pH POC ABG pCO2 POC ABG pO2 Sodium Potassium Chloride Carbon Dioxide BUN 40 H Creatinine 2.2 H Glucose 154 H POC Glucose 160 H 164 H Hemoglobin A1c Lactic Acid Calcium Phosphorus Magnesium AST Alkaline Phosphatase Total Creatine Kinase CK-MB (CK-2) CK-MB (CK-2) Rel Index Troponin T C-Reactive Protein Total Protein Albumin HDL Cholesterol Urine WBC (Auto) Urine Creatinine 06/07/19 06/07/19 06/08/19 16:35 21:43 02:00 WBC RBC Hgb Hct RDW Plt Count [place] % (Auto) Lymph # Seg Neutrophils % Nucleated RBC % Seg Neutrophils # Seg Neutrophils # Man Lymphocytes # (Manual) PT INR APTT POC ABG pH POC ABG pCO2 POC ABG pO2 Sodium Potassium Chloride Carbon Dioxide BUN Creatinine Glucose POC Glucose 181 H 62 L 126 H Hemoglobin A1c Lactic Acid Calcium Phosphorus Magnesium AST Alkaline Phosphatase Total Creatine Kinase CK-MB (CK-2) CK-MB (CK-2) Rel Index Troponin T C-Reactive Protein Total Protein Albumin HDL Cholesterol Urine WBC (Auto) Urine Creatinine 06/08/19 06/08/19 06/08/19 05:46 05:55 05:55 WBC 3.1 L RBC Hgb 10.8 L Hct 31.6 L D RDW 16.8 H Plt Count [place] % (Auto) 14.3 H Lymph # 0.9 L Seg Neutrophils % Nucleated RBC % Seg Neutrophils # 1.6 L Seg Neutrophils # Man Lymphocytes # (Manual) PT INR APTT POC ABG pH POC ABG pCO2 POC ABG pO2 Sodium Potassium Chloride Carbon Dioxide 21 L BUN 38 H Creatinine 2.2 H Glucose 167 H POC Glucose 147 H Hemoglobin A1c Lactic Acid Calcium Phosphorus Magnesium AST Alkaline Phosphatase 130 H Total Creatine Kinase CK-MB (CK-2) CK-MB (CK-2) Rel Index Troponin T C-Reactive Protein Total Protein 6.2 L Albumin 3.0 L HDL Cholesterol Urine WBC (Auto) Urine Creatinine 06/08/19 06/08/19 06/08/19 07:48 17:49 21:47 WBC RBC Hgb Hct RDW Plt Count [place] % (Auto) Lymph # Seg Neutrophils % Nucleated RBC % Seg Neutrophils # Seg Neutrophils # Man Lymphocytes # (Manual) PT INR APTT POC ABG pH POC ABG pCO2 POC ABG pO2 Sodium Potassium Chloride Carbon Dioxide BUN Creatinine Glucose POC Glucose 179 H 127 H 161 H Hemoglobin A1c Lactic Acid Calcium Phosphorus Magnesium AST Alkaline Phosphatase Total Creatine Kinase CK-MB (CK-2) CK-MB (CK-2) Rel Index Troponin T C-Reactive Protein Total Protein Albumin HDL Cholesterol Urine WBC (Auto) Urine Creatinine 06/08/19 06/09/19 06/09/19 22:14 03:12 04:34 WBC RBC Hgb Hct RDW Plt Count [place] % (Auto) Lymph # Seg Neutrophils % Nucleated RBC % Seg Neutrophils # Seg Neutrophils # Man Lymphocytes # (Manual) PT INR APTT POC ABG pH POC ABG pCO2 POC ABG pO2 Sodium Potassium Chloride Carbon Dioxide BUN Creatinine Glucose POC Glucose 59 L 163 H Hemoglobin A1c 10.8 H Lactic Acid Calcium Phosphorus Magnesium AST Alkaline Phosphatase Total Creatine Kinase CK-MB (CK-2) CK-MB (CK-2) Rel Index Troponin T C-Reactive Protein Total Protein Albumin HDL Cholesterol Urine WBC (Auto) Urine Creatinine 06/09/19 06/09/19 06/09/19 05:02 07:39 08:34 WBC 3.1 L RBC Hgb 10.6 L Hct 31.7 L RDW 17.0 H Plt Count [place] % (Auto) 13.8 H Lymph # 1.0 L Seg Neutrophils % Nucleated RBC % Seg Neutrophils # 1.5 L Seg Neutrophils # Man Lymphocytes # (Manual) PT INR APTT POC ABG pH POC ABG pCO2 POC ABG pO2 Sodium Potassium Chloride Carbon Dioxide BUN 37 H Creatinine 2.0 H Glucose 176 H POC Glucose 206 H Hemoglobin A1c Lactic Acid Calcium Phosphorus Magnesium AST Alkaline Phosphatase Total Creatine Kinase CK-MB (CK-2) CK-MB (CK-2) Rel Index Troponin T C-Reactive Protein Total Protein 5.8 L Albumin 2.8 L HDL Cholesterol Urine WBC (Auto) Urine Creatinine 06/09/19 06/09/19 06/10/19 17:55 21:36 05:20 WBC RBC Hgb Hct RDW Plt Count [place] % (Auto) Lymph # Seg Neutrophils % Nucleated RBC % Seg Neutrophils # Seg Neutrophils # Man Lymphocytes # (Manual) PT INR APTT POC ABG pH POC ABG pCO2 POC ABG pO2 Sodium Potassium 3.3 L Chloride Carbon Dioxide BUN 34 H Creatinine 2.0 H Glucose 212 H POC Glucose 265 H 132 H Hemoglobin A1c Lactic Acid Calcium Phosphorus Magnesium AST Alkaline Phosphatase Total Creatine Kinase CK-MB (CK-2) CK-MB (CK-2) Rel Index Troponin T C-Reactive Protein Total Protein Albumin HDL Cholesterol Urine WBC (Auto) Urine Creatinine 06/10/19 06/10/19 06/10/19 05:20 07:00 11:48 WBC 4.4 L RBC 3.47 L Hgb 10.0 L Hct 29.6 L RDW 16.9 H Plt Count [place] % (Auto) Lymph # Seg Neutrophils % Nucleated RBC % Seg Neutrophils # Seg Neutrophils # Man Lymphocytes # (Manual) PT INR APTT POC ABG pH POC ABG pCO2 POC ABG pO2 Sodium Potassium Chloride Carbon Dioxide BUN Creatinine Glucose POC Glucose 249 H 279 H Hemoglobin A1c Lactic Acid Calcium Phosphorus Magnesium AST Alkaline Phosphatase Total Creatine Kinase CK-MB (CK-2) CK-MB (CK-2) Rel Index Troponin T C-Reactive Protein Total Protein Albumin HDL Cholesterol Urine WBC (Auto) Urine Creatinine 06/10/19 06/10/19 06/10/19 18:25 21:50 23:22 WBC RBC Hgb Hct RDW Plt Count [place] % (Auto) Lymph # Seg Neutrophils % Nucleated RBC % Seg Neutrophils # Seg Neutrophils # Man Lymphocytes # (Manual) PT INR APTT POC ABG pH POC ABG pCO2 POC ABG pO2 Sodium Potassium Chloride Carbon Dioxide BUN Creatinine Glucose POC Glucose 157 H 58 L 124 H Hemoglobin A1c Lactic Acid Calcium Phosphorus Magnesium AST Alkaline Phosphatase Total Creatine Kinase CK-MB (CK-2) CK-MB (CK-2) Rel Index Troponin T C-Reactive Protein Total Protein Albumin HDL Cholesterol Urine WBC (Auto) Urine Creatinine 06/11/19 06/11/19 06/11/19 05:15 06:48 11:52 WBC RBC Hgb Hct RDW Plt Count [place] % (Auto) Lymph # Seg Neutrophils % Nucleated RBC % Seg Neutrophils # Seg Neutrophils # Man Lymphocytes # (Manual) PT INR APTT POC ABG pH POC ABG pCO2 POC ABG pO2 Sodium Potassium 3.4 L Chloride 108.1 H Carbon Dioxide BUN 30 H Creatinine 2.0 H Glucose 358 H POC Glucose 441 H 339 H Hemoglobin A1c Lactic Acid Calcium Phosphorus Magnesium AST Alkaline Phosphatase Total Creatine Kinase CK-MB (CK-2) CK-MB (CK-2) Rel Index Troponin T C-Reactive Protein Total Protein Albumin HDL Cholesterol Urine WBC (Auto) Urine Creatinine 06/11/19 06/11/19 06/12/19 17:41 23:52 05:38 WBC RBC Hgb Hct RDW Plt Count [place] % (Auto) Lymph # Seg Neutrophils % Nucleated RBC % Seg Neutrophils # Seg Neutrophils # Man Lymphocytes # (Manual) PT INR APTT POC ABG pH POC ABG pCO2 POC ABG pO2 Sodium Potassium Chloride 115.2 H Carbon Dioxide 18 L BUN 32 H Creatinine 2.0 H Glucose 164 H POC Glucose 311 H 119 H Hemoglobin A1c Lactic Acid Calcium Phosphorus 1.30 L Magnesium AST Alkaline Phosphatase Total Creatine Kinase CK-MB (CK-2) CK-MB (CK-2) Rel Index Troponin T C-Reactive Protein Total Protein Albumin HDL Cholesterol Urine WBC (Auto) Urine Creatinine 06/12/19 06/12/19 06/12/19 06:41 10:34 11:49 WBC RBC Hgb Hct RDW Plt Count [place] % (Auto) Lymph # Seg Neutrophils % Nucleated RBC % Seg Neutrophils # Seg Neutrophils # Man Lymphocytes # (Manual) PT INR APTT POC ABG pH POC ABG pCO2 POC ABG pO2 Sodium Potassium Chloride Carbon Dioxide BUN Creatinine Glucose POC Glucose 178 H 198 H 200 H Hemoglobin A1c Lactic Acid Calcium Phosphorus Magnesium AST Alkaline Phosphatase Total Creatine Kinase CK-MB (CK-2) CK-MB (CK-2) Rel Index Troponin T C-Reactive Protein Total Protein Albumin HDL Cholesterol Urine WBC (Auto) Urine Creatinine 06/12/19 06/12/19 06/13/19 13:30 17:19 04:51 WBC RBC 3.48 L Hgb 10.1 L Hct 30.0 L RDW 18.3 H Plt Count 129 L [place] % (Auto) Lymph # Seg Neutrophils % Nucleated RBC % Seg Neutrophils # Seg Neutrophils # Man Lymphocytes # (Manual) PT INR APTT POC ABG pH 7.235 L POC ABG pCO2 POC ABG pO2 200 H Sodium Potassium Chloride Carbon Dioxide BUN Creatinine Glucose POC Glucose 167 H Hemoglobin A1c Lactic Acid Calcium Phosphorus Magnesium AST Alkaline Phosphatase Total Creatine Kinase CK-MB (CK-2) CK-MB (CK-2) Rel Index Troponin T C-Reactive Protein Total Protein Albumin HDL Cholesterol Urine WBC (Auto) Urine Creatinine 06/13/19 06/13/19 06/13/19 04:51 11:45 14:34 WBC RBC Hgb Hct RDW Plt Count [place] % (Auto) Lymph # Seg Neutrophils % Nucleated RBC % Seg Neutrophils # Seg Neutrophils # Man Lymphocytes # (Manual) PT INR APTT POC ABG pH 7.184 L POC ABG pCO2 POC ABG pO2 Sodium Potassium Chloride 112.4 H Carbon Dioxide 17 L BUN 36 H Creatinine 2.0 H Glucose 329 H POC Glucose 338 H Hemoglobin A1c Lactic Acid Calcium Phosphorus Magnesium AST Alkaline Phosphatase Total Creatine Kinase CK-MB (CK-2) CK-MB (CK-2) Rel Index Troponin T C-Reactive Protein Total Protein Albumin HDL Cholesterol Urine WBC (Auto) Urine Creatinine 06/13/19 06/13/19 06/13/19 17:39 18:47 20:12 WBC RBC Hgb Hct RDW Plt Count [place] % (Auto) Lymph # Seg Neutrophils % Nucleated RBC % Seg Neutrophils # Seg Neutrophils # Man Lymphocytes # (Manual) PT INR APTT POC ABG pH 7.178 L 7.186 L POC ABG pCO2 POC ABG pO2 70 L 74 L Sodium Potassium Chloride Carbon Dioxide BUN Creatinine Glucose POC Glucose Hemoglobin A1c Lactic Acid Calcium Phosphorus Magnesium AST Alkaline Phosphatase Total Creatine Kinase 295 H CK-MB (CK-2) 16.7 H CK-MB (CK-2) Rel Index 5.6 H Troponin T C-Reactive Protein Total Protein Albumin HDL Cholesterol Urine WBC (Auto) Urine Creatinine 06/13/19 06/13/19 06/14/19 21:52 23:52 00:20 WBC RBC Hgb Hct RDW Plt Count [place] % (Auto) Lymph # Seg Neutrophils % Nucleated RBC % Seg Neutrophils # Seg Neutrophils # Man Lymphocytes # (Manual) PT INR APTT POC ABG pH POC ABG pCO2 POC ABG pO2 Sodium Potassium Chloride Carbon Dioxide BUN Creatinine Glucose POC Glucose 387 H 321 H Hemoglobin A1c Lactic Acid 4.50 H* Calcium Phosphorus Magnesium AST Alkaline Phosphatase Total Creatine Kinase CK-MB (CK-2) CK-MB (CK-2) Rel Index Troponin T C-Reactive Protein Total Protein Albumin HDL Cholesterol Urine WBC (Auto) Urine Creatinine 06/14/19 06/14/19 06/14/19 01:04 01:38 01:38 WBC 2.7 L RBC Hgb 11.5 L Hct 35.1 L RDW 18.1 H Plt Count [place] % (Auto) Lymph # Seg Neutrophils % Nucleated RBC % Seg Neutrophils # Seg Neutrophils # Man Lymphocytes # (Manual) PT INR APTT POC ABG pH 7.259 L POC ABG pCO2 32.8 L POC ABG pO2 79 L Sodium Potassium 3.5 L D Chloride 112.2 H Carbon Dioxide 18 L BUN 39 H Creatinine 2.1 H Glucose 293 H POC Glucose Hemoglobin A1c Lactic Acid Calcium Phosphorus Magnesium AST Alkaline Phosphatase Total Creatine Kinase 195 H CK-MB (CK-2) CK-MB (CK-2) Rel Index Troponin T C-Reactive Protein Total Protein Albumin HDL Cholesterol Urine WBC (Auto) Urine Creatinine 06/14/19 06/14/19 06/14/19 04:55 06:12 08:06 WBC RBC Hgb Hct RDW Plt Count [place] % (Auto) Lymph # Seg Neutrophils % Nucleated RBC % Seg Neutrophils # Seg Neutrophils # Man Lymphocytes # (Manual) PT INR APTT POC ABG pH POC ABG pCO2 POC ABG pO2 Sodium Potassium Chloride Carbon Dioxide BUN Creatinine Glucose POC Glucose 233 H Hemoglobin A1c Lactic Acid 4.60 H* 4.70 H* Calcium Phosphorus Magnesium AST Alkaline Phosphatase Total Creatine Kinase CK-MB (CK-2) CK-MB (CK-2) Rel Index Troponin T C-Reactive Protein Total Protein Albumin HDL Cholesterol Urine WBC (Auto) Urine Creatinine 06/14/19 06/14/19 06/14/19 09:02 10:59 11:25 WBC RBC Hgb Hct RDW Plt Count [place] % (Auto) Lymph # Seg Neutrophils % Nucleated RBC % Seg Neutrophils # Seg Neutrophils # Man Lymphocytes # (Manual) PT INR APTT POC ABG pH 7.269 L POC ABG pCO2 POC ABG pO2 53 L Sodium Potassium Chloride Carbon Dioxide BUN Creatinine Glucose POC Glucose 121 H Hemoglobin A1c Lactic Acid 5.00 H* Calcium Phosphorus Magnesium AST Alkaline Phosphatase Total Creatine Kinase CK-MB (CK-2) CK-MB (CK-2) Rel Index Troponin T C-Reactive Protein Total Protein Albumin HDL Cholesterol Urine WBC (Auto) Urine Creatinine 06/14/19 06/14/19 06/14/19 12:57 15:21 15:21 WBC RBC Hgb Hct RDW Plt Count [place] % (Auto) Lymph # Seg Neutrophils % Nucleated RBC % Seg Neutrophils # Seg Neutrophils # Man Lymphocytes # (Manual) PT INR APTT POC ABG pH 7.306 L POC ABG pCO2 POC ABG pO2 74 L Sodium Potassium Chloride Carbon Dioxide BUN Creatinine Glucose POC Glucose 147 H Hemoglobin A1c Lactic Acid 5.20 H* Calcium Phosphorus Magnesium AST Alkaline Phosphatase Total Creatine Kinase CK-MB (CK-2) CK-MB (CK-2) Rel Index Troponin T C-Reactive Protein Total Protein Albumin HDL Cholesterol Urine WBC (Auto) Urine Creatinine 06/14/19 06/14/19 06/14/19 18:35 18:50 20:43 WBC RBC Hgb Hct RDW Plt Count [place] % (Auto) Lymph # Seg Neutrophils % Nucleated RBC % Seg Neutrophils # Seg Neutrophils # Man Lymphocytes # (Manual) PT INR APTT POC ABG pH 7.281 L POC ABG pCO2 POC ABG pO2 Sodium Potassium Chloride Carbon Dioxide BUN Creatinine Glucose POC Glucose 192 H Hemoglobin A1c Lactic Acid Calcium Phosphorus Magnesium AST Alkaline Phosphatase Total Creatine Kinase CK-MB (CK-2) CK-MB (CK-2) Rel Index Troponin T C-Reactive Protein Total Protein Albumin HDL Cholesterol Urine WBC (Auto) > 182.0 H Urine Creatinine 06/15/19 06/15/19 06/15/19 00:20 04:30 04:30 WBC RBC 3.57 L Hgb 10.1 L Hct 30.7 L RDW 18.0 H Plt Count 90 L [place] % (Auto) Lymph # Seg Neutrophils % Nucleated RBC % Seg Neutrophils # Seg Neutrophils # Man Lymphocytes # (Manual) PT INR APTT POC ABG pH POC ABG pCO2 POC ABG pO2 Sodium Potassium 5.7 H D Chloride Carbon Dioxide 14 L BUN 47 H Creatinine 3.4 H D Glucose 383 H POC Glucose 334 H Hemoglobin A1c Lactic Acid Calcium 7.5 L D Phosphorus Magnesium AST Alkaline Phosphatase Total Creatine Kinase CK-MB (CK-2) CK-MB (CK-2) Rel Index Troponin T C-Reactive Protein 24.70 H Total Protein Albumin HDL Cholesterol Urine WBC (Auto) Urine Creatinine 06/15/19 06/15/19 06/15/19 04:30 06:24 09:34 WBC RBC Hgb Hct RDW Plt Count [place] % (Auto) Lymph # Seg Neutrophils % Nucleated RBC % Seg Neutrophils # Seg Neutrophils # Man Lymphocytes # (Manual) PT INR APTT POC ABG pH POC ABG pCO2 POC ABG pO2 Sodium Potassium Chloride Carbon Dioxide BUN Creatinine Glucose POC Glucose 438 H 413 H Hemoglobin A1c Lactic Acid 8.90 H* Calcium Phosphorus Magnesium AST Alkaline Phosphatase Total Creatine Kinase CK-MB (CK-2) CK-MB (CK-2) Rel Index Troponin T C-Reactive Protein Total Protein Albumin HDL Cholesterol Urine WBC (Auto) Urine Creatinine 06/15/19 06/15/19 06/15/19 09:59 11:49 17:45 WBC RBC Hgb Hct RDW Plt Count [place] % (Auto) Lymph # Seg Neutrophils % Nucleated RBC % Seg Neutrophils # Seg Neutrophils # Man Lymphocytes # (Manual) PT INR APTT POC ABG pH POC ABG pCO2 POC ABG pO2 Sodium Potassium Chloride Carbon Dioxide BUN Creatinine Glucose POC Glucose 327 H Hemoglobin A1c Lactic Acid 8.20 H* 5.00 H* Calcium Phosphorus Magnesium AST Alkaline Phosphatase Total Creatine Kinase CK-MB (CK-2) CK-MB (CK-2) Rel Index Troponin T C-Reactive Protein Total Protein Albumin HDL Cholesterol Urine WBC (Auto) Urine Creatinine 06/15/19 06/15/19 06/16/19 17:51 20:55 04:34 WBC RBC Hgb Hct RDW Plt Count [place] % (Auto) Lymph # Seg Neutrophils % Nucleated RBC % Seg Neutrophils # Seg Neutrophils # Man Lymphocytes # (Manual) PT INR APTT POC ABG pH 7.517 H 7.541 H POC ABG pCO2 30.7 L POC ABG pO2 63 L 62 L Sodium Potassium Chloride Carbon Dioxide BUN Creatinine Glucose POC Glucose 171 H Hemoglobin A1c Lactic Acid Calcium Phosphorus Magnesium AST Alkaline Phosphatase Total Creatine Kinase CK-MB (CK-2) CK-MB (CK-2) Rel Index Troponin T C-Reactive Protein Total Protein Albumin HDL Cholesterol Urine WBC (Auto) Urine Creatinine 06/16/19 06/16/19 06/16/19 06:43 08:35 11:23 WBC RBC Hgb Hct RDW Plt Count [place] % (Auto) Lymph # Seg Neutrophils % Nucleated RBC % Seg Neutrophils # Seg Neutrophils # Man Lymphocytes # (Manual) PT INR APTT POC ABG pH POC ABG pCO2 POC ABG pO2 Sodium Potassium Chloride Carbon Dioxide BUN Creatinine Glucose POC Glucose 127 H Hemoglobin A1c Lactic Acid 3.00 H* 3.00 H* Calcium Phosphorus Magnesium AST Alkaline Phosphatase Total Creatine Kinase CK-MB (CK-2) CK-MB (CK-2) Rel Index Troponin T C-Reactive Protein Total Protein Albumin HDL Cholesterol Urine WBC (Auto) Urine Creatinine 06/16/19 06/16/19 06/16/19 17:47 Unknown Unknown WBC RBC Hgb Hct RDW Plt Count [place] % (Auto) Lymph # Seg Neutrophils % Nucleated RBC % Seg Neutrophils # Seg Neutrophils # Man Lymphocytes # (Manual) PT 18.6 H INR 1.59 H APTT POC ABG pH POC ABG pCO2 POC ABG pO2 66 L Sodium Potassium Chloride Carbon Dioxide BUN Creatinine Glucose POC Glucose Hemoglobin A1c Lactic Acid 2.50 H* Calcium Phosphorus Magnesium AST Alkaline Phosphatase Total Creatine Kinase CK-MB (CK-2) CK-MB (CK-2) Rel Index Troponin T C-Reactive Protein Total Protein Albumin HDL Cholesterol Urine WBC (Auto) Urine Creatinine 06/16/19 06/17/19 06/17/19 Unknown 01:58 02:15 WBC RBC Hgb Hct RDW Plt Count [place] % (Auto) Lymph # Seg Neutrophils % Nucleated RBC % Seg Neutrophils # Seg Neutrophils # Man Lymphocytes # (Manual) PT INR APTT POC ABG pH POC ABG pCO2 POC ABG pO2 Sodium 146 H Potassium Chloride Carbon Dioxide BUN 54 H Creatinine 3.7 H Glucose 47 L POC Glucose 144 H 139 H Hemoglobin A1c Lactic Acid Calcium 6.8 L Phosphorus Magnesium AST Alkaline Phosphatase Total Creatine Kinase CK-MB (CK-2) CK-MB (CK-2) Rel Index Troponin T C-Reactive Protein Total Protein Albumin HDL Cholesterol Urine WBC (Auto) Urine Creatinine 06/17/19 06/17/19 06/17/19 04:30 05:54 05:54 WBC 1.5 L* RBC 2.55 L Hgb 7.3 L Hct 21.6 L D RDW 16.7 H Plt Count [place] % (Auto) Lymph # Seg Neutrophils % Nucleated RBC % 1.0 H Seg Neutrophils # Seg Neutrophils # Man 1.0 L Lymphocytes # (Manual) 0.3 L PT 15.2 H INR 1.23 H APTT POC ABG pH POC ABG pCO2 POC ABG pO2 63 L Sodium Potassium Chloride Carbon Dioxide BUN Creatinine Glucose POC Glucose Hemoglobin A1c Lactic Acid Calcium Phosphorus Magnesium AST Alkaline Phosphatase Total Creatine Kinase CK-MB (CK-2) CK-MB (CK-2) Rel Index Troponin T C-Reactive Protein Total Protein Albumin HDL Cholesterol Urine WBC (Auto) Urine Creatinine 06/17/19 07:55 WBC RBC Hgb Hct RDW Plt Count [place] % (Auto) Lymph # Seg Neutrophils % Nucleated RBC % Seg Neutrophils # Seg Neutrophils # Man Lymphocytes # (Manual) PT INR APTT POC ABG pH POC ABG pCO2 POC ABG pO2 Sodium Potassium Chloride Carbon Dioxide BUN Creatinine Glucose POC Glucose 204 H Hemoglobin A1c Lactic Acid Calcium Phosphorus Magnesium AST Alkaline Phosphatase Total Creatine Kinase CK-MB (CK-2) CK-MB (CK-2) Rel Index Troponin T C-Reactive Protein Total Protein Albumin HDL Cholesterol Urine WBC (Auto) Urine Creatinine Allied health notes reviewed: nursing
[2019-06-17 08:34] LABS: Calcium 7.3 mg/dL (8.4-10.2)
[2019-06-17] MEDS: QUESTRAN PO SCH ×3 (08:53→20:00)
--- NOTE | 2019-06-17 09:47 | Progress Note ---
Assessment and Plan Sepsis with septic shock / UTI due to ESBL klebsiella pneumonia / New right sided pneumonia / lactic acidosis ID Physician following. One set of blood cultures positive for coag negative staphylococcus. T max 101.7 on 06/14. Cont vasopressor support and wean as tolerated. Acute metabolic encephalopathy Nonresponsive, not on sedation. Head CT with NAF, brain MRI with NAF. S/p neurology evaluation. Acute respiratory failure Intubated. Pulmonary following. Acute kidney injury on CKD / Hyperkalemia Nephrology following. Sinus bradycardia --> Sinus tachycardia Pt initially had sinus bradycardia and subsequently developed sinus tachycardia. Now in NSR. Cont supportive measures and observation on telemetry. Cardiomyopathy - EF 25-30% Echo done 05/19/2019 showed EF 25-30%, pericardium thickened and calcified, LV mild to mod dilated, mild to mod LVH, LA mildly dilated, trace MR, trace TR. Pt was recommended stress test to r/o ischemic CMP at that time but pt refused stress test. No current clinical evidence of acutely decompensated HF. No BB or ACEI/ARB at this time in setting of hypotension and renal insufficiency. Pancytopenia H/H significantly reduced this AM - 7.3/21.6 No antiplatelets at this time. Hypokalemia Replete K+ PRN and f/u BMP and Mg in AM. DM with hyperglycemia Dementia Severe malnutrition BMI 14.7 s/p PEG tube placement 06/09/2019 Overall prognosis is poor. Continue current management. Nothing further to add from cardiac perspective at this time. Will follow on as needed basis. The patient has been seen in conjunction with Dr. Messer who agrees with the assessment and plan of care. Subjective Date of service: 06/17/19 Principal diagnosis: Ac hypoxemic resp failure; Septic shock; PAPITO; Thrombocytopenia; HFrEF Interval history: pt remains intubated, unresponsive, not on sedation. requiring vaso and levophed gtts. in SR with HR 80s - 90s. no family at bedside. Objective Last Vital Signs Temp 97.1 F L 06/17/19 08:00 Pulse 83 06/17/19 09:19 Resp 11 L 06/17/19 08:00 BP 117/63 06/17/19 09:19 Pulse Ox 97 06/17/19 09:19 - Physical Examination General: Other (patient is intubated on ventilator.) HEENT: Positive: PERRL Neck: Positive: neck supple, trachea midline Cardiac: Positive: Reg Rate and Rhythm, S1/S2 Lungs: Positive: Ventilated Respirations Neuro: Positive: Other ( patient is intubated. Nonresponsive) Abdomen: Positive: Soft Skin: Negative: Rash Musculoskeletal: No Pain Extremities: Present: Other (patient has a dressing on the leg.). Absent: edema - Labs and Meds Coagulation 06/17/19 Range/Units 05:54 PT 15.2 H (12.2-14.9) Sec. INR 1.23 H (0.87-1.13) CBC 06/17/19 Range/Units 05:54 WBC 1.5 L* (4.5-11.0) K/mm3 RBC 2.55 L (3.65-5.03) M/mm3 Hgb 7.3 L (11.8-15.2) gm/dl Hct 21.6 L D (35.5-45.6) % Comprehensive Metabolic Panel 06/17/19 Range/Units 05:54 Sodium 145 (137-145) mmol/L Potassium 3.1 L D (3.6-5.0) mmol/L Chloride 103.1 (98-107) mmol/L Carbon Dioxide 24 (22-30) mmol/L BUN 61 H (9-20) mg/dL Creatinine 4.0 H (0.8-1.5) mg/dL Glucose 194 H (75-100) mg/dL Calcium 7.3 L (8.4-10.2) mg/dL - Imaging and Cardiology EKG: report reviewed, image reviewed Echo: report reviewed ( 05/19/2019 showed EF 25-30%, pericardium thickened and calcified, LV mild to mod dilated, mild to mod LVH, LA mildly dilated, trace MR, trace TR. ) - EKG Sinus rhythms and dysrhythmias: sinus bradycardia - Allied health notes Allied health notes reviewed: nursing
[2019-06-17] MEDS: MERREM/NS 500 MG/50 ML 500 MG/50 ML BAG IV SCH (10:10)
[2019-06-17] MEDS: FLOMAX PO SCH (10:11)
[2019-06-17] MEDS: PROSCAR PO SCH (10:11)
[2019-06-17] MEDS: PEPCID PO SCH (10:11)
[2019-06-17] MEDS: SODIUM CHLORIDE FLUSH SYRINGE 10 ML IV SCH ×2 (10:12→22:00)
[2019-06-17] MEDS: ALLBEE WITH C PO SCH (10:12)
[2019-06-17] MEDS: FERROUS SULFATE PO SCH ×2 (10:12→22:00)
--- NOTE | 2019-06-17 10:54 | Progress Note ---
Assessment and Plan 1. Acute kidney injury: Vasomotor PAPITO superimposed on CKD stage 3 in the setting of shock. Renal function continue to decline. Monitor renal function. Renal prognosis is guarded. Avoid nephrotoxic agents. Meds dosage based on GFR. 2. FEN: Hypokalemia, monitor. Hypernatremia, improved. Metabolic acidosis, improved. Monitor lytes. 3. Septic shock: On Levophed. 4. Respiratory failure: On vent. 5. Metabolic Encephalopathy. 6. Anemia: POA. 7. Dysphagia: S/p PEG tube. 8. Adult failure to thrive: Malnourished. Subjective Date of service: 06/17/19 Principal diagnosis: Ac hypoxemic resp failure; Septic shock; PAPITO; Thrombocytopenia; HFrEF Interval history: Patient was seen and examined at the bedside. Patient remain intubated and on vent. Objective - Vital Signs Vital signs: Vital Signs - 12hr 06/16/19 06/16/19 06/16/19 22:56 23:00 23:02 Temperature Pulse Rate 90 87 89 Pulse Rate [ Anterior Bilateral Throughout] Pulse Rate [ From Monitor] Pulse Rate [ Left Dorsalis Pedis] Pulse Rate [ None] Pulse Rate [ Right Brachial] Pulse Rate [ Right Dorsalis Pedis] Respiratory Rate Respiratory Rate [Anterior Bilateral Throughout] Blood Pressure 98/57 92/54 92/54 O2 Sat by Pulse 93 93 93 Oximetry 06/16/19 06/16/19 06/16/19 23:09 23:10 23:20 Temperature Pulse Rate 89 90 Pulse Rate [ Anterior Bilateral Throughout] Pulse Rate [ 81 From Monitor] Pulse Rate [ 89 Left Dorsalis Pedis] Pulse Rate [ None] Pulse Rate [ 81 Right Brachial] Pulse Rate [ 89 Right Dorsalis Pedis] Respiratory Rate Respiratory Rate [Anterior Bilateral Throughout] Blood Pressure 98/57 95/59 O2 Sat by Pulse 95 96 94 Oximetry 06/16/19 06/16/19 06/16/19 23:30 23:31 23:34 Temperature 97.6 F Pulse Rate 86 83 Pulse Rate [ Anterior Bilateral Throughout] Pulse Rate [ From Monitor] Pulse Rate [ Left Dorsalis Pedis] Pulse Rate [ None] Pulse Rate [ Right Brachial] Pulse Rate [ Right Dorsalis Pedis] Respiratory 1 L Rate Respiratory Rate [Anterior Bilateral Throughout] Blood Pressure 103/59 103/59 O2 Sat by Pulse 94 93 Oximetry 06/16/19 06/16/1919 23:40 23:50 00:00 Temperature Pulse Rate 85 88 84 Pulse Rate [ Anterior Bilateral Throughout] Pulse Rate [ From Monitor] Pulse Rate [ Left Dorsalis Pedis] Pulse Rate [ None] Pulse Rate [ Right Brachial] Pulse Rate [ Right Dorsalis Pedis] Respiratory Rate Respiratory Rate [Anterior Bilateral Throughout] Blood Pressure 95/59 99/60 87/57 O2 Sat by Pulse 92 93 94 Oximetry 06/17/19 06/17/19 06/17/19 00:10 00:20 00:30 Temperature Pulse Rate 85 90 89 Pulse Rate [ Anterior Bilateral Throughout] Pulse Rate [ From Monitor] Pulse Rate [ Left Dorsalis Pedis] Pulse Rate [ None] Pulse Rate [ Right Brachial] Pulse Rate [ Right Dorsalis Pedis] Respiratory Rate Respiratory Rate [Anterior Bilateral Throughout] Blood Pressure 103/59 103/55 103/55 O2 Sat by Pulse 93 93 94 Oximetry 06/17/19 06/17/19 06/17/19 00:40 00:50 01:00 Temperature Pulse Rate 87 85 86 Pulse Rate [ Anterior Bilateral Throughout] Pulse Rate [ From Monitor] Pulse Rate [ Left Dorsalis Pedis] Pulse Rate [ None] Pulse Rate [ Right Brachial] Pulse Rate [ Right Dorsalis Pedis] Respiratory Rate Respiratory Rate [Anterior Bilateral Throughout] Blood Pressure 99/60 95/56 108/61 O2 Sat by Pulse 93 94 94 Oximetry 06/17/19 06/17/19 06/17/19 01:10 01:20 01:30 Temperature Pulse Rate 84 85 87 Pulse Rate [ Anterior Bilateral Throughout] Pulse Rate [ From Monitor] Pulse Rate [ Left Dorsalis Pedis] Pulse Rate [ None] Pulse Rate [ Right Brachial] Pulse Rate [ Right Dorsalis Pedis] Respiratory Rate Respiratory Rate [Anterior Bilateral Throughout] Blood Pressure 108/61 106/59 103/57 O2 Sat by Pulse 95 95 94 Oximetry 06/17/19 06/17/19 06/17/19 01:40 01:50 02:00 Temperature Pulse Rate 81 86 79 Pulse Rate [ Anterior Bilateral Throughout] Pulse Rate [ From Monitor] Pulse Rate [ Left Dorsalis Pedis] Pulse Rate [ None] Pulse Rate [ Right Brachial] Pulse Rate [ Right Dorsalis Pedis] Respiratory Rate Respiratory Rate [Anterior Bilateral Throughout] Blood Pressure 103/57 109/66 109/66 O2 Sat by Pulse 95 95 95 Oximetry 06/17/19 06/17/19 06/17/19 02:07 02:10 02:20 Temperature Pulse Rate 85 90 Pulse Rate [ 88 Anterior Bilateral Throughout] Pulse Rate [ From Monitor] Pulse Rate [ Left Dorsalis Pedis] Pulse Rate [ None] Pulse Rate [ Right Brachial] Pulse Rate [ Right Dorsalis Pedis] Respiratory Rate Respiratory 15 Rate [Anterior Bilateral Throughout] Blood Pressure 101/53 103/63 O2 Sat by Pulse 94 95 Oximetry 06/17/19 06/17/19 06/17/19 02:30 02:40 02:50 Temperature Pulse Rate 84 81 81 Pulse Rate [ Anterior Bilateral Throughout] Pulse Rate [ From Monitor] Pulse Rate [ Left Dorsalis Pedis] Pulse Rate [ None] Pulse Rate [ Right Brachial] Pulse Rate [ Right Dorsalis Pedis] Respiratory Rate Respiratory Rate [Anterior Bilateral Throughout] Blood Pressure 116/65 116/65 97/56 O2 Sat by Pulse 97 92 93 Oximetry 06/17/19 06/17/19 06/17/19 03:00 03:10 03:20 Temperature Pulse Rate 81 87 90 Pulse Rate [ Anterior Bilateral Throughout] Pulse Rate [ From Monitor] Pulse Rate [ Left Dorsalis Pedis] Pulse Rate [ None] Pulse Rate [ Right Brachial] Pulse Rate [ Right Dorsalis Pedis] Respiratory Rate Respiratory Rate [Anterior Bilateral Throughout] Blood Pressure 94/64 94/64 88/67 O2 Sat by Pulse 95 92 90 Oximetry 06/17/19 06/17/19 06/17/19 03:25 03:30 03:40 Temperature Pulse Rate 87 83 85 Pulse Rate [ Anterior Bilateral Throughout] Pulse Rate [ From Monitor] Pulse Rate [ Left Dorsalis Pedis] Pulse Rate [ None] Pulse Rate [ Right Brachial] Pulse Rate [ Right Dorsalis Pedis] Respiratory Rate Respiratory Rate [Anterior Bilateral Throughout] Blood Pressure 111/64 93/55 93/55 O2 Sat by Pulse 90 92 Oximetry 06/17/19 06/17/19 06/17/19 03:50 04:00 04:10 Temperature 97.7 F Pulse Rate 86 85 83 Pulse Rate [ Anterior Bilateral Throughout] Pulse Rate [ 83 From Monitor] Pulse Rate [ 83 Left Dorsalis Pedis] Pulse Rate [ None] Pulse Rate [ 83 Right Brachial] Pulse Rate [ 83 Right Dorsalis Pedis] Respiratory Rate Respiratory Rate [Anterior Bilateral Throughout] Blood Pressure 99/60 107/61 107/61 O2 Sat by Pulse 92 94 95 Oximetry 06/17/19 06/17/19 06/17/19 04:20 04:30 04:40 Temperature Pulse Rate 83 84 83 Pulse Rate [ Anterior Bilateral Throughout] Pulse Rate [ From Monitor] Pulse Rate [ Left Dorsalis Pedis] Pulse Rate [ None] Pulse Rate [ Right Brachial] Pulse Rate [ Right Dorsalis Pedis] Respiratory Rate Respiratory Rate [Anterior Bilateral Throughout] Blood Pressure 106/58 103/56 103/56 O2 Sat by Pulse 94 94 95 Oximetry 06/17/19 06/17/19 06/17/19 04:50 05:00 05:10 Temperature Pulse Rate 82 86 82 Pulse Rate [ Anterior Bilateral Throughout] Pulse Rate [ From Monitor] Pulse Rate [ Left Dorsalis Pedis] Pulse Rate [ None] Pulse Rate [ Right Brachial] Pulse Rate [ Right Dorsalis Pedis] Respiratory Rate Respiratory Rate [Anterior Bilateral Throughout] Blood Pressure 107/63 109/63 109/63 O2 Sat by Pulse 95 95 94 Oximetry 06/17/19 06/17/19 06/17/19 05:20 05:30 05:40 Temperature Pulse Rate 83 82 83 Pulse Rate [ Anterior Bilateral Throughout] Pulse Rate [ From Monitor] Pulse Rate [ Left Dorsalis Pedis] Pulse Rate [ None] Pulse Rate [ Right Brachial] Pulse Rate [ Right Dorsalis Pedis] Respiratory Rate Respiratory Rate [Anterior Bilateral Throughout] Blood Pressure 109/63 102/62 102/62 O2 Sat by Pulse 94 94 94 Oximetry 06/17/19 06/17/19 06/17/19 05:50 06:00 06:10 Temperature Pulse Rate 82 82 81 Pulse Rate [ Anterior Bilateral Throughout] Pulse Rate [ From Monitor] Pulse Rate [ Left Dorsalis Pedis] Pulse Rate [ None] Pulse Rate [ Right Brachial] Pulse Rate [ Right Dorsalis Pedis] Respiratory Rate Respiratory Rate [Anterior Bilateral Throughout] Blood Pressure 110/66 110/66 92/62 O2 Sat by Pulse 94 94 95 Oximetry 06/17/19 06/17/19 06/17/19 06:20 06:30 06:41 Temperature Pulse Rate 81 83 81 Pulse Rate [ Anterior Bilateral Throughout] Pulse Rate [ From Monitor] Pulse Rate [ Left Dorsalis Pedis] Pulse Rate [ None] Pulse Rate [ Right Brachial] Pulse Rate [ Right Dorsalis Pedis] Respiratory Rate Respiratory Rate [Anterior Bilateral Throughout] Blood Pressure 107/62 108/65 107/62 O2 Sat by Pulse 97 96 95 Oximetry 06/17/19 06/17/19 06/17/19 06:51 07:00 07:11 Temperature Pulse Rate 82 83 81 Pulse Rate [ Anterior Bilateral Throughout] Pulse Rate [ From Monitor] Pulse Rate [ Left Dorsalis Pedis] Pulse Rate [ None] Pulse Rate [ Right Brachial] Pulse Rate [ Right Dorsalis Pedis] Respiratory Rate Respiratory Rate [Anterior Bilateral Throughout] Blood Pressure 104/64 99/66 99/66 O2 Sat by Pulse 95 96 96 Oximetry 06/17/19 06/17/19 06/17/19 07:21 07:30 07:32 Temperature Pulse Rate 82 83 81 Pulse Rate [ Anterior Bilateral Throughout] Pulse Rate [ From Monitor] Pulse Rate [ Left Dorsalis Pedis] Pulse Rate [ None] Pulse Rate [ Right Brachial] Pulse Rate [ Right Dorsalis Pedis] Respiratory 13 Rate Respiratory Rate [Anterior Bilateral Throughout] Blood Pressure 99/66 111/63 111/63 O2 Sat by Pulse 96 97 96 Oximetry 06/17/19 06/17/19 06/17/19 07:41 07:51 08:00 Temperature 97.1 F L Pulse Rate 81 77 82 Pulse Rate [ 81 Anterior Bilateral Throughout] Pulse Rate [ From Monitor] Pulse Rate [ Left Dorsalis Pedis] Pulse Rate [ 85 None] Pulse Rate [ Right Brachial] Pulse Rate [ Right Dorsalis Pedis] Respiratory 14 Rate Respiratory 11 L Rate [Anterior Bilateral Throughout] Blood Pressure 111/63 107/66 117/63 O2 Sat by Pulse 98 96 97 Oximetry 06/17/19 06/17/19 06/17/19 08:11 08:21 08:30 Temperature Pulse Rate 83 82 81 Pulse Rate [ Anterior Bilateral Throughout] Pulse Rate [ From Monitor] Pulse Rate [ Left Dorsalis Pedis] Pulse Rate [ None] Pulse Rate [ Right Brachial] Pulse Rate [ Right Dorsalis Pedis] Respiratory 11 L 11 L Rate Respiratory Rate [Anterior Bilateral Throughout] Blood Pressure 117/63 108/63 100/55 O2 Sat by Pulse 97 96 96 Oximetry 06/17/19 06/17/19 06/17/19 08:41 08:51 09:00 Temperature Pulse Rate 83 81 83 Pulse Rate [ Anterior Bilateral Throughout] Pulse Rate [ From Monitor] Pulse Rate [ Left Dorsalis Pedis] Pulse Rate [ None] Pulse Rate [ Right Brachial] Pulse Rate [ Right Dorsalis Pedis] Respiratory 12 11 L 10 L Rate Respiratory Rate [Anterior Bilateral Throughout] Blood Pressure 100/55 101/62 101/65 O2 Sat by Pulse 96 97 97 Oximetry 06/17/19 06/17/19 06/17/19 09:11 09:19 09:21 Temperature Pulse Rate 81 83 83 Pulse Rate [ Anterior Bilateral Throughout] Pulse Rate [ From Monitor] Pulse Rate [ Left Dorsalis Pedis] Pulse Rate [ None] Pulse Rate [ Right Brachial] Pulse Rate [ Right Dorsalis Pedis] Respiratory 10 L 10 L Rate Respiratory Rate [Anterior Bilateral Throughout] Blood Pressure 101/65 117/63 101/65 O2 Sat by Pulse 97 97 95 Oximetry 06/17/19 06/17/19 06/17/19 09:30 09:41 09:51 Temperature Pulse Rate 82 83 87 Pulse Rate [ Anterior Bilateral Throughout] Pulse Rate [ From Monitor] Pulse Rate [ Left Dorsalis Pedis] Pulse Rate [ None] Pulse Rate [ Right Brachial] Pulse Rate [ Right Dorsalis Pedis] Respiratory 11 L 11 L 15 Rate Respiratory Rate [Anterior Bilateral Throughout] Blood Pressure 109/64 109/64 93/56 O2 Sat by Pulse 96 96 95 Oximetry 06/17/19 10:00 Temperature Pulse Rate 86 Pulse Rate [ Anterior Bilateral Throughout] Pulse Rate [ From Monitor] Pulse Rate [ Left Dorsalis Pedis] Pulse Rate [ None] Pulse Rate [ Right Brachial] Pulse Rate [ Right Dorsalis Pedis] Respiratory 14 Rate Respiratory Rate [Anterior Bilateral Throughout] Blood Pressure 102/61 O2 Sat by Pulse 96 Oximetry - General Appearance General appearance: well-developed, appears stated age, sedated on ventilator, intubated EENT: ATNC, PERRL Neck: supple Respiratory: Present: Clear to Ascultation Cardiology: regular, S1S2, no murmurs Gastrointestinal: normoactive bowel sounds, no tenderness, other (PEG tube and Kruse catheter) Neurologic: obtunded Musculoskeletal: other (tarce dependent edema noted) - Lab 06/17/19 11:34 06/17/19 05:54 Most recent lab results Calcium 7.3 mg/dL (8.4-10.2) L 06/17/19 05:54 Phosphorus 4.50 mg/dL (2.5-4.5) D 06/15/19 04:30 Magnesium 1.90 mg/dL (1.7-2.3) 06/15/19 04:30 102.7 mg/dL (0.1-20.0) H 06/06/19 17:37 47 mmol/L 06/06/19 17:37 Medications & Allergies - Medications Allergies/Adverse Reactions: Allergies No Known Allergies Allergy (Verified 05/19/19 22:08) Home Medications: Home Medications Medication Instructions Recorded Confirmed Last Taken Type Cholestyramine/Aspartame 239.4 mg PO TID 05/20/19 06/05/19 Unknown History [Cholestyramine Light Powder] Famotidine [Pepcid] 20 mg PO BID 05/20/19 06/05/19 Unknown History Ferrous Gluconate [Fergon 240 MG 240 mg PO BID 05/20/19 06/05/19 Unknown History tab] Finasteride [Proscar] 5 mg PO DAILY 05/20/19 06/05/19 Unknown History Mirtazapine [Remeron 15mg TAB] 15 mg PO QHS 05/20/19 06/05/19 Unknown History Tamsulosin [Flomax] 0.4 mg PO QDAY 05/20/19 06/05/19 Unknown History Vitamin B Complex [B Complex] 1 each PO DAILY 05/20/19 06/05/19 Unknown History Aspirin EC 81 mg PO QDAY tablet 05/22/19 06/05/19 Unknown Rx Insulin Regular, Human [HumuLIN R] 0 units SUB-Q ACHS units 05/22/19 06/05/19 Unknown Rx Megestrol [Megace] 400 mg PO QDAY oral.liqd 05/22/19 06/05/19 Unknown Rx Insulin NPH/Regular [NovoLIN 70/30] 10 unit SQ BIDDIAB #1 vial 05/27/19 06/05/19 Unknown Rx Metoprolol [Lopressor TAB] 12.5 mg PO BID #60 tablet 05/27/19 06/05/19 Unknown Rx amLODIPine [Norvasc] 10 mg PO QDAY #60 tablet 05/27/19 06/05/19 Unknown Rx Active Medications: Generic Name Dose Route Start Last Admin Trade Name Freq PRN Reason Stop Dose Admin Acetaminophen 650 mg 06/08/19 14:58 Tylenol PO Q4H PRN Pain MILD(1-3)/Fever >100.5/POLANCO Albuterol 2.5 mg 06/14/19 14:00 06/17/19 07:31 Proventil IH 2.5 mg Q6HRT ELIZABETH Administration Lipase/Protease/Amylase 1 each 06/09/19 16:01 Marcia Freed 10,500 Unit FEEDTUBE PRN PRN For Clogged Feeding Tube Cholestyramine Resin 4 gm 06/05/19 20:00 06/17/19 08:53 Questran PO 4 gm TID ELIZABETH Administration Dextrose 50 ml 06/05/19 14:03 06/16/19 06:14 D50w (25gm) Syringe IV 50 ml PRN PRN Administration Hypoglycemia Famotidine 20 mg 06/05/19 22:00 06/17/19 10:11 Pepcid PO 20 mg DAILY ELIZABETH Administration Fentanyl 50 mcg 06/14/19 11:17 Sublimaze IV Q10MIN PRN ANALGESIA Ferrous Sulfate 308 mg 06/16/19 10:00 06/17/19 10:12 Ferrous Sulfate PO 308 mg BID ELIZABETH Administration Finasteride 5 mg 06/06/19 10:00 06/17/19 10:11 Proscar PO 5 mg DAILY ELIZABETH Administration Hydralazine HCl 10 mg 06/07/19 14:00 06/07/19 13:42 Apresoline IV 10 mg Q3HR PRN Administration Elevated BP Hydrocortisone Sodium Succinate 100 mg 06/17/19 10:00 06/17/19 10:09 Solu-Cortef IV 06/22/19 09:59 100 mg Q8HR ELIZABETH Administration Hydrophilic Ointment 1 applic 06/14/19 11:17 Vaseline Lip Therapy TP Q2HR PRN Dry Lips Norepinephrine 4 mg in 250 mls @ 7.5 mls/hr 06/14/19 06:15 06/16/19 19:49 Levophed Drip 4 Mg/Ns 250 Ml IV 4 mcg/min TITR ELIZABETH 15 mls/hr Titration Protocol 2 MCG/MIN Fentanyl Citrate 2,000 mcg in 100 mls @ 2.46 mls/hr 06/14/19 12:00 06/15/19 08:24 Fentanyl Drip Premix IV 0 mcg/kg/hr TITR ELIZABETH 0 mls/hr Titration Protocol 1 MCG/KG/HR Meropenem 500 mg in 50 mls @ 50 mls/hr 06/16/19 10:00 06/17/19 10:10 Merrem/Ns 500 Mg/50 Ml IV 50 mls/hr Q24HR ELIZABETH Administration Lactated Ringer's 1,000 mls @ 75 mls/hr 06/16/19 11:00 06/16/19 22:05 Lactated Ringers IV 75 mls/hr DIRECT ELIZABETH Administration Insulin Human Lispro 0 unit 06/13/19 20:00 06/17/19 08:53 Humalog SUB-Q 2 unit Q6H ELIZABETH Administration Protocol Multi-Ingred Cream/Lotion/Oil/Oint 1 applic 06/14/19 11:17 Artificial Tears Ophth Oint OU Q4HR PRN Dry Eye(s) Ondansetron HCl 4 mg 06/08/19 14:58 Zofran IV Q8H PRN Nausea And Vomiting Oxycodone/Acetaminophen 1 tab 06/08/19 14:58 Percocet 5/325 PO Q6H PRN Pain, Moderate (4-6) Potassium Chloride 40 meq 06/17/19 11:00 Potassium Chloride FEEDTUBE 06/17/19 11:01 ONCE ONE Simple Syrup 15 ml 06/09/19 16:01 Simple Syrup FEEDTUBE PRN PRN Hypoglycemia Simple Syrup 30 ml 06/09/19 16:01 Simple Syrup FEEDTUBE PRN PRN Hypoglycemia Sodium Bicarbonate 325 mg 06/09/19 16:01 Sodium Bicarbonate FEEDTUBE PRN PRN For Clogged Feeding Tube Sodium Chloride 10 ml 06/05/19 22:00 06/17/19 10:12 Sodium Chloride Flush Syringe 10 Ml IV 10 ml BID ELIZABETH Administration Sodium Chloride 10 ml 06/05/19 14:00 06/13/19 13:04 Sodium Chloride Flush Syringe 10 Ml IV 10 ml PRN PRN Administration LINE FLUSH Tamsulosin HCl 0.4 mg 06/06/19 10:00 06/17/19 10:11 Flomax PO 0.4 mg QDAY ELIZABETH Administration Vitamin B Complex/Vitamin C 1 each 06/06/19 10:00 06/17/19 10:12 Allbee With C PO 1 each QDAY ELIZABETH Administration
[2019-06-17] MEDS ORDERED: POTASSIUM CHLORIDE FEEDTUBE ONE (11:00)
[2019-06-17 12:01] LABS: Platelet Count 18 K/mm3 (140-440)
[2019-06-17 12:46] LABS: Hematocrit 21.8 % (35.5-45.6); Hemoglobin 7.5 gm/dl (11.8-15.2); Mean Corpuscular HGB Conc 34 % (32-34); Mean Corpuscular Volume 86 fl (84-94); Red Blood Count 2.55 M/mm3 (3.65-5.03); Red Cell Distribution Width 17.4 % (13.2-15.2)
--- NOTE | 2019-06-17 14:35 | Progress Note ---
Assessment and Plan Previous Cultures: 05/19/2019 Blood: no growth 05/19/2019 Urine: ESBL Klebsiella Cultures: 06/14/19 BCX - NGTD 06/14/19 trach asp - MRSA 06/05/2019 Urine: ESBL Klebsiella 06/05/2019 Blood: NGTD A/P: 68 yo M PMHx dementia, malnutrition, GERD, HTN admitted with AMS, ESBL UTI. 1) Septic shcok secondary to MRSA pneumonia - On pressors. Also with new R sided pneumonia. Initially with severe sepsis secondary to ESBL UTI Renal US - no acute infective processes or stone. L renal cysts. CoNS in 11/14 blood cultures represents a likely contaminant, no concern. Don't believe current condition is entirely attributable to infection. 2) Metabolic encephalopathy: - non-responsive. CT head normal. Brain MRI shows stable chronic encephalomalacia in the left frontal lobe and left cerebellar hemisphere. Verbal defects expected. Neurology following. 3) Dementia 4) GERD 5) Malnutrition - s/p EGD and Peg placement 06/09/19 6) HTN 7) PAPITO v/s CKD: renally dose abx. 8) Pancytopenia - worsening leukopenia and thrombocytopenia. Unclear etiology. Recs: - continue vancomycin and renally adjusted meropenem - f/u Bcx - CBC with diff in AM (ordered) - OK for PICC line as CoNS in BCx likely contaminant. - grim prognosis We will continue to follow with you. We appreciate being involved in Mr. Paulino's care. Aissatou Mccormick MD [facility] ([facility]) C: [phone] O: [phone] F: [phone] Subjective Date of service: 06/17/19 Principal diagnosis: Ac hypoxemic resp failure; Septic shock; PAPITO; Thrombocytopenia; HFrEF Interval history: Not responsive to verbal commands. Remains intubated. Objective - Exam Narrative Exam: Constitutional: awake, no distress, doesn't follow commands. Head, Ears, Nose: Normocephalic, atraumatic. External ears, nose normal Eyes: Conjunctivae/corneas clear. No icterus. No ptosis. Neck: Supple, no meningeal signs Oral: Intubated Cardiovascular: S1, S2 normal. Normal rhythm Respiratory: Good air entry, clear to auscultation bilaterally GI: Soft, non-tender; bowel sounds normal. No peritoneal signs Musculoskeletal: No pedal edema Skin: Numerous abrasion and excoriations on all extremities. R thigh bandaged. Hem/Lymphatic: No palpable cervical or supraclavicular nodes. No lymphangitis Psych: no agitation Neurological: Not moving, intubated, not responsive. - Constitutional Vitals: Vital Signs Temp Pulse Resp BP Pulse Ox 97.7 F 83 15 93/58 96 06/17/19 12:00 06/17/19 14:11 06/17/19 14:11 06/17/19 14:11 06/17/19 14:11 Temperature -Last 24 Hours Temperature 97.7 F Temperature 97.1 F Temperature 97.1 F Temperature 97.7 F Temperature 97.6 F Temperature 97.9 F Temperature 97.9 F - Labs CBC & Chem 7: 06/17/19 11:34 06/17/19 05:54 Labs: Abnormal lab results 06/16/19 06/17/19 06/17/19 Range/Units 17:47 01:58 02:15 WBC (4.5-11.0) K/mm3 RBC (3.65-5.03) M/mm3 Hgb (11.8-15.2) gm/dl Hct (35.5-45.6) % RDW (13.2-15.2) % Plt Count (140-440) K/mm3 Nucleated RBC % (0.0-0.9) % Seg Neutrophils # Man (1.8-7.7) K/mm3 Lymphocytes # (Manual) (1.2-5.4) K/mm3 PT (12.2-14.9) Sec. INR (0.87-1.13) POC ABG pO2 66 L (80-105) Potassium (3.6-5.0) mmol/L BUN (9-20) mg/dL Creatinine (0.8-1.5) mg/dL Glucose (75-100) mg/dL POC Glucose 144 H 139 H (70-105) Calcium (8.4-10.2) mg/dL 06/17/19 06/17/19 06/17/19 Range/Units 04:30 05:54 05:54 WBC 1.5 L* (4.5-11.0) K/mm3 RBC 2.55 L (3.65-5.03) M/mm3 Hgb 7.3 L (11.8-15.2) gm/dl Hct 21.6 L D (35.5-45.6) % RDW 16.7 H (13.2-15.2) % Plt Count 18 L* (140-440) K/mm3 Nucleated RBC % 1.0 H (0.0-0.9) % Seg Neutrophils # Man 1.0 L (1.8-7.7) K/mm3 Lymphocytes # (Manual) 0.3 L (1.2-5.4) K/mm3 PT 15.2 H (12.2-14.9) Sec. INR 1.23 H (0.87-1.13) POC ABG pO2 63 L (80-105) Potassium (3.6-5.0) mmol/L BUN (9-20) mg/dL Creatinine (0.8-1.5) mg/dL Glucose (75-100) mg/dL POC Glucose (70-105) Calcium (8.4-10.2) mg/dL 06/17/19 06/17/19 06/17/19 Range/Units 05:54 07:55 11:34 WBC (4.5-11.0) K/mm3 RBC 2.55 L (3.65-5.03) M/mm3 Hgb 7.5 L (11.8-15.2) gm/dl Hct 21.8 L (35.5-45.6) % RDW 17.4 H (13.2-15.2) % Plt Count (140-440) K/mm3 Nucleated RBC % (0.0-0.9) % Seg Neutrophils # Man (1.8-7.7) K/mm3 Lymphocytes # (Manual) (1.2-5.4) K/mm3 PT (12.2-14.9) Sec. INR (0.87-1.13) POC ABG pO2 (80-105) Potassium 3.1 L D (3.6-5.0) mmol/L BUN 61 H (9-20) mg/dL Creatinine 4.0 H (0.8-1.5) mg/dL Glucose 194 H (75-100) mg/dL POC Glucose 204 H (70-105) Calcium 7.3 L (8.4-10.2) mg/dL 06/17/19 Range/Units 11:42 WBC (4.5-11.0) K/mm3 RBC (3.65-5.03) M/mm3 Hgb (11.8-15.2) gm/dl Hct (35.5-45.6) % RDW (13.2-15.2) % Plt Count (140-440) K/mm3 Nucleated RBC % (0.0-0.9) % Seg Neutrophils # Man (1.8-7.7) K/mm3 Lymphocytes # (Manual) (1.2-5.4) K/mm3 PT (12.2-14.9) Sec. INR (0.87-1.13) POC ABG pO2 (80-105) Potassium (3.6-5.0) mmol/L BUN (9-20) mg/dL Creatinine (0.8-1.5) mg/dL Glucose (75-100) mg/dL POC Glucose 221 H (70-105) Calcium (8.4-10.2) mg/dL
--- NOTE | 2019-06-17 15:32 | XRay Report ---
CHEST 1 VIEW INDICATION: Right arm PICC placement. COMPARISON: 06/17/2019 at 1435 hours FINDINGS: Support devices: Endotracheal tube remains in good position. A right arm PICC has been inserted which is last visualized just below the cavoatrial junction in the superior right atrium. Heart: Within normal limits. Lungs/Pleura: Bilateral lung opacities are stable. No large pleural effusion or pneumothorax. Additional findings: None. IMPRESSION: Right arm PICC as described. Otherwise no change since 1435 hours earlier the same day. Signer Name: Pop Urbano Jr, MD Signed: 06/17/2019 3:28 PM Workstation Name: [id number]
[2019-06-17] MEDS: LACTATED RINGERS 1,000 ML IV SCH (17:14)
--- NOTE | 2019-06-17 17:29 | Progress Note ---
Assessment and Plan Assessment and plan: patient is 68 YO Male with Dementia, Severe Malnutrition, GERD, HTN presented to ED for evaluation. Patient was stuporous and unable to provide history. Pt history provided by his son. As per son, the patient has experienced progressive weakness over 3 weeks, but is able to care for himself. Patient was in his usual state of health few days earlier. Patient was found by his son to be confused, unable to stand, nonverbal and not following commands. EMS notified and patient brought to hospital . He was seen and evaluated in ED and found to have Metabolic Encephalopathy, Acute Kidney Injury, Acidosis, Severe Malnutrition, UTI, and Volume Depletion. Patient admitted to [facility]. Further work up revea led sepsis due to ESBL klebsiella pneumoniae. He was evaluated by Neurology, MRI unremarkable. He had bradycardia in 40s was seen by cardiology. He became worse, hypotensive, transferred to ICU started on Pressors, had acute resp failure, intubated. he is currently on 2 pressors, intubated, worsening renal function. Family wants everything done. Full code. Pancytopenia Hematology consult Request repeat study Thrombocytopenia Repeat study and as noted above HIT Acute metabolic encephalopathy Neurochecks Neurology following MRI Brain neg for stroke Acute respiratory failure s/p intubated on 06/14 Was tried on BIPAP prior to intubation Pulmonology following Shock - Likely cardiogenic shock On Levophed NOW OFF vasopressin Sepsis, present on admission due to ESBL UTI On Merrem, Vancomycin started by ID Physician ID Physician following Right sided Pneumonia Abx as per ID Lactic acidosis UTI due to ESBL Klebsiella pneumoniae ID Physician following Cardiomyopathy EF 25-30% Acute kidney injury, worsening Kruse placed due to urinary retention Flomax already in place Renal us, shows medical renal disease Nephrology following Dementia Monitor Neurochecks Diabetes mellitus type 2 Fingerstick q 6h Severe malnutrition BMI only 14.7 s/p PEG tube placed Sinus Bradycardia EKG sinus clarissa at 47 On 06/13 heart rate went low as 38, started on Dopamine drip, now discontinued Cardiology following Full code status Prognosis guarded The high probability of a clinically significant, sudden or life threatening deterioration of the [Pulmonary, renal, neurology] system(s) required my full and direct attention, intervention and personal management. The aggregate critical care time was [45] minutes. This time is in addition to time spent performing reported procedures but includes the following: [x] Data Review and interpretation [x] Patient assessment and monitoring of vital signs [x] Documentation [x] Medication orders and management History Interval history: Patient seen and examined still on the Ventilator. Kruse catheter still place, Labs noted Hospitalist Physical - Physical exam Narrative exam: Gen: Not in acute distress, malnourished, very ill looking, intubated HEENT: Normocephalic, atraumatic Neck: supple, no JVD Heart: S1 and S2 reg, no murmurs, rubs or gallop Lungs: Clear to auscultation, no wheeze Abd: soft, non tender, non distended, normal BS, PEG tube Ext: No edema, no clubbing, no cyanosis Neuro: lethargic, Intubated - Constitutional Vitals: Temp Pulse Resp BP Pulse Ox 97.4 F L 82 12 124/67 95 06/17/19 16:00 06/17/19 17:21 06/17/19 17:21 06/17/19 17:21 06/17/19 17:21 General appearance: Present: other (lethargic, withdrawn) Results - Labs CBC & Chem 7: 06/17/19 11:34 06/17/19 05:54 Labs: Laboratory Last Values WBC 1.5 K/mm3 (4.5-11.0) L* 06/17/19 05:54 RBC 2.55 M/mm3 (3.65-5.03) L 06/17/19 11:34 Hgb 7.5 gm/dl (11.8-15.2) L 06/17/19 11:34 Hct 21.8 % (35.5-45.6) L 06/17/19 11:34 MCV 86 fl (84-94) 06/17/19 11:34 MCH 29 pg (28-32) 06/17/19 11:34 MCHC 34 % (32-34) 06/17/19 11:34 RDW 17.4 % (13.2-15.2) H 06/17/19 11:34 Plt Count 18 K/mm3 (140-440) L* 06/17/19 05:54 Lymph % (Auto) 32.7 % (13.4-35.0) 06/09/19 07:39 Barnes % (Auto) 13.8 % (0.0-7.3) H 06/09/19 07:39 Eos % (Auto) 3.9 % (0.0-4.3) 06/09/19 07:39 Baso % (Auto) 0.9 % (0.0-1.8) 06/09/19 07:39 Lymph # 1.0 K/mm3 (1.2-5.4) L 06/09/19 07:39 Barnes # 0.4 K/mm3 (0.0-0.8) 06/09/19 07:39 Eos # 0.1 K/mm3 (0.0-0.4) 06/09/19 07:39 Baso # 0.0 K/mm3 (0.0-0.1) 06/09/19 07:39 Add Manual Diff Complete 06/17/19 05:54 Total Counted 100 06/17/19 05:54 Seg Neutrophils % Instructor Modeling 06/17/19 05:54 Seg Neuts % (Manual) 69.0 % (40.0-70.0) 06/17/19 05:54 0 % 06/17/19 05:54 23.0 % (13.4-35.0) 06/17/19 05:54 Reactive Lymphs % (Man) 0 % 06/17/19 05:54 6.0 % (0.0-7.3) 06/17/19 05:54 0 % (0.0-4.3) 06/17/19 05:54 0 % (0.0-1.8) 06/17/19 05:54 2.0 % 06/17/19 05:54 0 % 06/17/19 05:54 0 % 06/17/19 05:54 0 % 06/17/19 05:54 Nucleated RBC % 1.0 % (0.0-0.9) H 06/17/19 05:54 Seg Neutrophils # 1.5 K/mm3 (1.8-7.7) L 06/09/19 07:39 Seg Neutrophils # Man 1.0 K/mm3 (1.8-7.7) L 06/17/19 05:54 Band Neutrophils # 0.0 K/mm3 06/17/19 05:54 0.3 K/mm3 (1.2-5.4) L 06/17/19 05:54 Abs React Lymphs (Man) 0.0 K/mm3 06/17/19 05:54 0.1 K/mm3 (0.0-0.8) 06/17/19 05:54 0.0 K/mm3 (0.0-0.4) 06/17/19 05:54 0.0 K/mm3 (0.0-0.1) 06/17/19 05:54 0.0 K/mm3 06/17/19 05:54 0.0 K/mm3 06/17/19 05:54 0.0 K/mm3 06/17/19 05:54 Blast Cells # 0.0 K/mm3 06/17/19 05:54 WBC Morphology Not Reportable 06/17/19 05:54 Hypersegmented Neuts Not Reportable 06/17/19 05:54 Hyposegmented Neuts Not Reportable 06/17/19 05:54 Hypogranular Neuts Not Reportable 06/17/19 05:54 Not Reportable 06/17/19 05:54 Not Reportable 06/17/19 05:54 Not Reportable 06/17/19 05:54 Not Reportable 06/17/19 05:54 Not Reportable 06/17/19 05:54 Not Reportable 06/17/19 05:54 Consistent w auto 06/17/19 05:54 Not Reportable 06/17/19 05:54 Plt Clumps, EDTA Not Reportable 06/17/19 05:54 Not Reportable 06/17/19 05:54 Not Reportable 06/17/19 05:54 Not Reportable 06/17/19 05:54 Plt Morphology Comment Not Reportable 06/17/19 05:54 RBC Morphology Not Reportable 06/17/19 05:54 Dimorphic RBCs Not Reportable 06/17/19 05:54 Not Reportable 06/17/19 05:54 Few 06/17/19 05:54 Few 06/17/19 05:54 1+ 06/17/19 05:54 Not Reportable 06/17/19 05:54 Not Reportable 06/17/19 05:54 Not Reportable 06/17/19 05:54 Not Reportable 06/17/19 05:54 Not Reportable 06/17/19 05:54 Not Reportable 06/17/19 05:54 Not Reportable 06/17/19 05:54 Not Reportable 06/17/19 05:54 Not Reportable 06/17/19 05:54 Not Reportable 06/17/19 05:54 Not Reportable 06/17/19 05:54 Not Reportable 06/17/19 05:54 Not Reportable 06/17/19 05:54 Not Reportable 06/17/19 05:54 Not Reportable 06/17/19 05:54 Acanthocytes (Spur) Not Reportable 06/17/19 05:54 Rouleaux Not Reportable 06/17/19 05:54 Not Reportable 06/17/19 05:54 Not Reportable 06/17/19 05:54 Not Reportable 06/17/19 05:54 Not Reportable 06/17/19 05:54 Hem Pathologist Commnt No 06/17/19 05:54 PT 15.2 Sec. (12.2-14.9) H 06/17/19 05:54 INR 1.23 (0.87-1.13) H 06/17/19 05:54 APTT 37.7 Sec. (24.2-36.6) H 06/05/19 11:11 POC ABG pH 7.400 (7.35-7.45) 06/17/19 04:30 POC ABG pCO2 37.7 (35-45) 06/17/19 04:30 POC ABG pO2 63 (80-105) L 06/17/19 04:30 POC ABG HCO3 23.4 (22-26 mml/L) 06/17/19 04:30 POC ABG Total CO2 24 (23-27mmol/L) 06/17/19 04:30 POC ABG O2 Sat 92 06/17/19 04:30 POC ABG Base Excess -1 ((-2) - (+3)mmol/L) 06/17/19 04:30 30 % 06/17/19 04:30 Sodium 145 mmol/L (137-145) 06/17/19 05:54 Potassium 3.1 mmol/L (3.6-5.0) L D 06/17/19 05:54 Chloride 103.1 mmol/L (98-107) 06/17/19 05:54 Carbon Dioxide 24 mmol/L (22-30) 06/17/19 05:54 21 mmol/L 06/17/19 05:54 BUN 61 mg/dL (9-20) H 06/17/19 05:54 4.0 mg/dL (0.8-1.5) H 06/17/19 05:54 Estimated GFR 18 ml/min 06/17/19 05:54 15 % 06/17/19 05:54 Glucose 194 mg/dL (75-100) H 06/17/19 05:54 POC Glucose 202 (70-105) H 06/17/19 15:45 10.8 % (4-6) H 06/08/19 22:14 Lactic Acid 2.50 mmol/L (0.7-2.0) H* 06/16/19 Unknown Calcium 7.3 mg/dL (8.4-10.2) L 06/17/19 05:54 Phosphorus 4.50 mg/dL (2.5-4.5) D 06/15/19 04:30 Magnesium 1.90 mg/dL (1.7-2.3) 06/15/19 04:30 0.30 mg/dL (0.1-1.2) 06/09/19 05:02 AST 28 units/L (5-40) 06/09/19 05:02 ALT 36 units/L (7-56) 06/09/19 05:02 125 units/L (35-129) 06/09/19 05:02 48.0 umol/L (25-60) 06/11/19 17:44 195 units/L (55-170) H 06/14/19 01:38 CK-MB (CK-2) 16.7 ng/mL (0.0-4.0) H 06/13/19 18:47 CK-MB (CK-2) Rel Index 5.6 (0-4) H 06/13/19 18:47 0.011 ng/mL (0.00-0.029) 06/14/19 01:38 24.70 mg/dL (0.00-1.30) H 06/15/19 04:30 NT-Pro-B Natriuret Pep 446.0 pg/mL (0-900) 06/05/19 11:11 5.8 g/dL (6.3-8.2) L 06/09/19 05:02 2.8 g/dL (3.9-5) L 06/09/19 05:02 0.9 % 06/09/19 05:02 Triglycerides 60 mg/dL (2-149) 06/05/19 11:11 Cholesterol 181 mg/dL (50-199) 06/05/19 11:11 68 mg/dL (50-130) 06/05/19 11:11 115 mg/dL (40-59) H 06/05/19 11:11 1.57 % 06/05/19 11:11 TSH 0.630 mlU/mL (0.270-4.200) 06/05/19 13:26 Free T4 1.04 ng/dL (0.76-1.46) 06/05/19 13:26 Yellow (Yellow) 06/14/19 18:35 Cloudy (Clear) 06/14/19 18:35 5.0 (5.0-7.0) 06/14/19 18:35 Ur Specific [place] 1.009 (1.003-1.030) 06/14/19 18:35 <15 mg/dl mg/dL (Negative) 06/14/19 18:35 >=500 mg/dL (Negative) 06/14/19 18:35 Neg mg/dL (Negative) 06/14/19 18:35 Sm (Negative) 06/14/19 18:35 Neg (Negative) 06/14/19 18:35 Neg (Negative) 06/14/19 18:35 < 2.0 mg/dL (<2.0) 06/14/19 18:35 Ur Leukocyte Esterase Lg (Negative) 06/14/19 18:35 > 182.0 /HPF (0.0-6.0) H 06/14/19 18:35 13.0 /HPF (0.0-6.0) 06/14/19 18:35 3+ /HPF (Negative) 06/14/19 18:35 2+ /HPF 06/14/19 18:35 Few /HPF 06/14/19 18:35 2+ /HPF 06/14/19 18:35 102.7 mg/dL (0.1-20.0) H 06/06/19 17:37 47 mmol/L 06/06/19 17:37 Random Vancomycin 7.0 ug/mL (0-40.0) 06/16/19 Unknown Active Medications - Current Medications Current Medications: Generic Name Dose Route Start Last Admin Trade Name Freq PRN Reason Stop Dose Admin Acetaminophen 650 mg 06/08/19 14:58 Tylenol PO Q4H PRN Pain MILD(1-3)/Fever >100.5/POLANCO Albuterol 2.5 mg 06/14/19 14:00 06/17/19 13:43 Proventil IH 2.5 mg Q6HRT ELIZABETH Administration Lipase/Protease/Amylase 1 each 06/09/19 16:[address] 10,500 Unit FEEDTUBE PRN PRN For Clogged Feeding Tube Cholestyramine Resin 4 gm 06/05/19 20:00 06/17/19 15:37 Questran PO 4 gm TID ELIZABETH Administration Dextrose 50 ml 06/05/19 14:03 06/16/19 06:14 D50w (25gm) Syringe IV 50 ml PRN PRN Administration Hypoglycemia Famotidine 20 mg 06/05/19 22:00 06/17/19 10:11 Pepcid PO 20 mg DAILY ELIZABETH Administration Fentanyl 50 mcg 06/14/19 11:17 Sublimaze IV Q10MIN PRN ANALGESIA Ferrous Sulfate 308 mg 06/16/19 10:00 06/17/19 10:12 Ferrous Sulfate PO 308 mg BID ELIZABETH Administration Finasteride 5 mg 06/06/19 10:00 06/17/19 10:11 Proscar PO 5 mg DAILY ELIZABETH Administration Hydralazine HCl 10 mg 06/07/19 14:00 06/07/19 13:42 Apresoline IV 10 mg Q3HR PRN Administration Elevated BP Hydrocortisone Sodium Succinate 100 mg 06/17/19 10:00 06/17/19 15:44 Solu-Cortef IV 06/22/19 09:59 100 mg Q8HR ELIZABETH Administration Hydrophilic Ointment 1 applic 06/14/19 11:17 Vaseline Lip Therapy TP Q2HR PRN Dry Lips Norepinephrine 4 mg in 250 mls @ 7.5 mls/hr 06/14/19 06:15 06/16/19 19:49 Levophed Drip 4 Mg/Ns 250 Ml IV 4 mcg/min TITR ELIZABETH 15 mls/hr Titration Protocol 2 MCG/MIN Fentanyl Citrate 2,000 mcg in 100 mls @ 2.46 mls/hr 06/14/19 12:00 06/15/19 08:24 Fentanyl Drip Premix IV 0 mcg/kg/hr TITR ELIZABETH 0 mls/hr Titration Protocol 1 MCG/KG/HR Meropenem 500 mg in 50 mls @ 50 mls/hr 06/16/19 10:00 06/17/19 10:10 Merrem/Ns 500 Mg/50 Ml IV 50 mls/hr Q24HR ELIZABETH Administration Lactated Ringer's 1,000 mls @ 75 mls/hr 06/16/19 11:00 06/17/19 17:14 Lactated Ringers IV 75 mls/hr DIRECT ELIZABETH Administration Insulin Human Lispro 0 unit 06/13/19 20:00 06/17/19 15:43 Humalog SUB-Q 2 unit Q6H ELIZABETH Administration Protocol Multi-Ingred Cream/Lotion/Oil/Oint 1 applic 06/14/19 11:17 Artificial Tears Ophth Oint OU Q4HR PRN Dry Eye(s) Ondansetron HCl 4 mg 06/08/19 14:58 Zofran IV Q8H PRN Nausea And Vomiting Oxycodone/Acetaminophen 1 tab 06/08/19 14:58 Percocet 5/325 PO Q6H PRN Pain, Moderate (4-6) Simple Syrup 15 ml 06/09/19 16:01 Simple Syrup FEEDTUBE PRN PRN Hypoglycemia Simple Syrup 30 ml 06/09/19 16:01 Simple Syrup FEEDTUBE PRN PRN Hypoglycemia Sodium Bicarbonate 325 mg 06/09/19 16:01 Sodium Bicarbonate FEEDTUBE PRN PRN For Clogged Feeding Tube Sodium Chloride 10 ml 06/05/19 22:00 06/17/19 10:12 Sodium Chloride Flush Syringe 10 Ml IV 10 ml BID ELIZABETH Administration Sodium Chloride 10 ml 06/05/19 14:00 06/13/19 13:04 Sodium Chloride Flush Syringe 10 Ml IV 10 ml PRN PRN Administration LINE FLUSH Tamsulosin HCl 0.4 mg 06/06/19 10:00 06/17/19 10:11 Flomax PO 0.4 mg QDAY ELIZABETH Administration Vitamin B Complex/Vitamin C 1 each 06/06/19 10:00 06/17/19 10:12 Allbee With C PO 1 each QDAY ELIZABETH Administration Nutrition/Malnutrition Assess - Dietary Evaluation Nutrition/Malnutrition Findings: Nutrition Notes Start: 06/06/19 08:4 5 Freq: Status: Active Protocol: Document 06/15/19 15:12 RM (Rec: 06/15/19 15:32 RM [email or web address]) Nutrition Notes Initial or Follow up Reassessment Current Diagnosis Acute Kidney Injury,Decubitus( Pressure Ulcer),Sepsis, Hypertension,Malnutrition Other Pertinent Diagnosis Dementia, GERD, UTI, Metabolic encephalopathy Current Diet Glucerna 1.2 at 65ml/hr Labs/Tests K 5.7 Pertinent Medications Reviewed Height 6 ft Weight 49.2 kg [place] Body Weight (kg) 80.90 BMI 14.7 Subjective/Other Information Consulted for evaluate nutritional intake. Observed Glucerna infusing at goal rate. Per nurse pt is tolerating TF. Percent of energy/protein needs met: 95%/100% Burn Absent Trauma Absent #1 Nutrition Diagnosis Malnutrition Diagnosis Progress(for reassessment Continues documentation) Is patient on ventilator? No Is Patient Ambulatory and/or Out of Bed No REE-([facility]-confined to bed) 1571.844 Kcal/Kg value to use for calculation 40 Approximate Energy Requirements Using 1968 kcal/Kg Calculation Used for Recommendations Kcal/kg Additional Notes Pro needs 1.2-1.5g/k-74g/ day Fluid needs 1ml/kcal Nutrition Intervention Nutrition Support: Nepro at 45 ml/hr Water flush of 200 mls q 4 hrs Kcal 1,944 Protein (gm) 87 Fluid (mL) 785 Goal #1 Meet at least 80% of kcal and protein needs via TF Goal #2 Wt maintenance and/or gain Anticipated Discharge Needs: Unable to determine at this time Follow-Up By: 06/17/19 Additional Comments Follow for TF tolerance, K lab
[2019-06-17] MEDS: LEVOPHED DRIP 4 MG/NS 250 ML 4 MG/250 ML BAG IV SCH (20:40)
[2019-06-17 21:16] LABS: Basophils % (Manual) 0 % (0.0-1.8); Eosinophils % (Manual) 0 % (0.0-4.3); Total Cells Counted 50
[2019-06-17 21:17] LABS: Anisocytosis 1+; Hypochromasia 1+; Large Platelets 1+; Platelet Estimate Appears Decreased; Poikilocytosis 1+
[2019-06-18] MEDS: PROVENTIL IH SCH ×3 (01:20→23:54)
[2019-06-18] MEDS: HumaLOG SUB-Q SCH ×3 (02:00→18:00)
--- NOTE | 2019-06-18 03:08 | XRay Report ---
. CHEST 1 VIEW INDICATION / CLINICAL INFORMATION: follow up respiratory failure. COMPARISON: 06/17/2019 FINDINGS: SUPPORT DEVICES: Endotracheal tube remains in place as well as PICC line. HEART / MEDIASTINUM: No significant abnormality. LUNGS / PLEURA: Bilateral lung consolidation is unchanged. No significant effusions. No pneumothorax. ADDITIONAL FINDINGS: No significant additional findings. IMPRESSION: 1. No significant change Signer Name: Tyler Osorio MD Signed: 06/18/2019 3:04 AM Workstation Name: [id number]
--- NOTE | 2019-06-18 05:25 | Event Note ---
Date: 06/18/19 [id number]
[2019-06-18 05:51] LABS: Hemoglobin 7.3 gm/dl (11.8-15.2); Mean Corpuscular HGB Conc 33 % (32-34); Mean Corpuscular Volume 86 fl (84-94); Red Blood Count 2.57 M/mm3 (3.65-5.03); Red Cell Distribution Width 16.9 % (13.2-15.2)
[2019-06-18] MEDS: LACTATED RINGERS 1,000 ML IV SCH (05:52)
[2019-06-18 05:59] LABS: INR 1.29 (0.87-1.13)
[2019-06-18 06:13] LABS: Albumin 1.5 g/dL (3.9-5); Calcium 7.8 mg/dL (8.4-10.2)
[2019-06-18] MEDS ORDERED: POTASSIUM CHLORIDE FEEDTUBE ONE ×2 (06:53→18:47)
[2019-06-18] MEDS ORDERED: KCL 10MEQ/100ML 10 MEQ/100 ML BAG IV SCH (07:00)
[2019-06-18 07:26] LABS: Platelet Count 14 K/mm3 (140-440)
[2019-06-18 07:54] LABS: Platelet Count 14 K/mm3 (140-440)
--- NOTE | 2019-06-18 08:07 | Progress Note ---
Assessment and Plan Assessment and plan: patient is 68 YO Male with Dementia, Severe Malnutrition, GERD, HTN presented to ED for evaluation. Patient was stuporous and unable to provide history. Pt history provided by his son. As per son, the patient has experienced progressive weakness over 3 weeks, but is able to care for himself. Patient was in his usual state of health few days earlier. Patient was found by his son to be confused, unable to stand, nonverbal and not following commands. EMS notified and patient brought to hospital . He was seen and evaluated in ED and found to have Metabolic Encephalopathy, Acute Kidney Injury, Acidosis, Severe Malnutrition, UTI, and Volume Depletion. Patient admitted to [facility]. Further work up revea led sepsis due to ESBL klebsiella pneumoniae. He was evaluated by Neurology, MRI unremarkable. He had bradycardia in 40s was seen by cardiology. He became worse, hypotensive, transferred to ICU started on Pressors, had acute resp failure, intubated. he is currently on 2 pressors, intubated, worsening renal function. Family wants everything done. Full code. Previous Cultures: 05/19/2019 Blood: no growth 05/19/2019 Urine: ESBL Klebsiella Cultures: 06/14/19 BCX - NGTD 06/14/19 trach asp - MRSA 06/05/2019 Urine: ESBL Klebsiella 06/05/2019 Blood: NGTD Acute respiratory failure s/p intubated on 06/14 Was tried on BIPAP prior to intubation Pulmonology following Shock - Likely cardiogenic shock On Levophed NOW OFF vasopressin Sepsis, present on admission due to ESBL UTI On Merrem, Vancomycin started by ID Physician ID Physician following Right sided Pneumonia Abx as per ID Pancytopenia Hematology consult platelets ordered. Thrombocytopenia No overt bleeding HIT study pending Hypokalemia -replace Acute metabolic encephalopathy Neurochecks Neurology following MRI Brain neg for stroke Lactic acidosis UTI due to ESBL Klebsiella pneumoniae ID Physician following Cardiomyopathy EF 25-30% Acute kidney injury, worsening Kruse placed due to urinary retention Flomax already in place Renal us, shows medical renal disease Nephrology following Dementia Monitor Neurochecks Diabetes mellitus type 2 Fingerstick q 6h Severe Protein malnutrition BMI only 14.7 s/p PEG tube placed Sinus Bradycardia EKG sinus clarissa at 47 On 06/13 heart rate went low as 38, started on Dopamine drip, Dubtamin. now discontinued Cardiology following Full code status Prognosis guarded The high probability of a clinically significant, sudden or life threatening deterioration of the [Pulmonary, renal, neurology] system(s) required my full and direct attention, intervention and personal management. The aggregate critical care time was [45] minutes. This time is in addition to time spent performing reported procedures but includes the following: [x] Data Review and interpretation [x] Patient assessment and monitoring of vital signs [x] Documentation [x] Medication orders and management History Interval history: Patient seen and examined still on the Ventilator. not tolerating weaning Hospitalist Physical - Physical exam Narrative exam: Gen: Not in acute distress, malnourished, very ill looking, intubated HEENT: Normocephalic, atraumatic, opens eyes when off sedation but not following commands Neck: supple, no JVD Heart: S1 and S2 reg, no murmurs, rubs or gallop Lungs: Clear to auscultation, no wheeze Abd: soft, non tender, non distended, normal BS, PEG tube Ext: No edema, no clubbing, no cyanosis Neuro: lethargic, Intubated - Constitutional Vitals: Temp Pulse Resp BP Pulse Ox 97.0 F L 84 18 103/55 97 06/18/19 04:00 06/18/19 06:00 06/18/19 06:00 06/18/19 06:00 06/18/19 05:51 General appearance: Present: other (lethargic, withdrawn) Results - Labs CBC & Chem 7: 06/19/19 05:00 06/19/19 05:00 Labs: Laboratory Last Values WBC 1.3 K/mm3 (4.5-11.0) L* 06/18/19 05:00 RBC 2.57 M/mm3 (3.65-5.03) L 06/18/19 05:00 Hgb 7.3 gm/dl (11.8-15.2) L 06/18/19 05:00 Hct 22.0 % (35.5-45.6) L 06/18/19 05:00 MCV 86 fl (84-94) 06/18/19 05:00 MCH 29 pg (28-32) 06/18/19 05:00 MCHC 33 % (32-34) 06/18/19 05:00 RDW 16.9 % (13.2-15.2) H 06/18/19 05:00 Plt Count 14 K/mm3 (140-440) L* 06/18/19 05:00 Lymph % (Auto) 32.7 % (13.4-35.0) 06/09/19 07:39 Bucks % (Auto) 13.8 % (0.0-7.3) H 06/09/19 07:39 Eos % (Auto) 3.9 % (0.0-4.3) 06/09/19 07:39 Baso % (Auto) 0.9 % (0.0-1.8) 06/09/19 07:39 Lymph # 1.0 K/mm3 (1.2-5.4) L 06/09/19 07:39 Bucks # 0.4 K/mm3 (0.0-0.8) 06/09/19 07:39 Eos # 0.1 K/mm3 (0.0-0.4) 06/09/19 07:39 Baso # 0.0 K/mm3 (0.0-0.1) 06/09/19 07:39 Add Manual Diff Complete 06/17/19 11:34 Total Counted 50 06/17/19 11:34 Seg Neutrophils % Visual And Stock Associate 06/17/19 05:54 Seg Neuts % (Manual) 72.0 % (40.0-70.0) H 06/17/19 11:34 0 % 06/17/19 11:34 16.0 % (13.4-35.0) 06/17/19 11:34 Reactive Lymphs % (Man) 0 % 06/17/19 11:34 12.0 % (0.0-7.3) H 06/17/19 11:34 0 % (0.0-4.3) 06/17/19 11:34 0 % (0.0-1.8) 06/17/19 11:34 0 % 06/17/19 11:34 0 % 06/17/19 11:34 0 % 06/17/19 11:34 0 % 06/17/19 11:34 Nucleated RBC % 12.0 % (0.0-0.9) H 06/17/19 11:34 Seg Neutrophils # 1.5 K/mm3 (1.8-7.7) L 06/09/19 07:39 Seg Neutrophils # Man 0.0 K/mm3 (1.8-7.7) L 06/17/19 11:34 Band Neutrophils # 0.0 K/mm3 06/17/19 11:34 0.0 K/mm3 (1.2-5.4) L 06/17/19 11:34 Abs React Lymphs (Man) 0.0 K/mm3 06/17/19 11:34 0.0 K/mm3 (0.0-0.8) 06/17/19 11:34 0.0 K/mm3 (0.0-0.4) 06/17/19 11:34 0.0 K/mm3 (0.0-0.1) 06/17/19 11:34 0.0 K/mm3 06/17/19 11:34 0.0 K/mm3 06/17/19 11:34 0.0 K/mm3 06/17/19 11:34 Blast Cells # 0.0 K/mm3 06/17/19 11:34 WBC Morphology Not Reportable 06/17/19 11:34 Hypersegmented Neuts Not Reportable 06/17/19 11:34 Hyposegmented Neuts Not Reportable 06/17/19 11:34 Hypogranular Neuts Not Reportable 06/17/19 11:34 Not Reportable 06/17/19 11:34 Not Reportable 06/17/19 11:34 Not Reportable 06/17/19 11:34 Not Reportable 06/17/19 11:34 Not Reportable 06/17/19 11:34 Not Reportable 06/17/19 11:34 Appears decreased 06/17/19 11:34 Not Reportable 06/17/19 11:34 Plt Clumps, EDTA Not Reportable 06/17/19 11:34 1+ 06/17/19 11:34 Not Reportable 06/17/19 11:34 Not Reportable 06/17/19 11:34 Plt Morphology Comment Not Reportable 06/17/19 11:34 RBC Morphology Not Reportable 06/17/19 11:34 Dimorphic RBCs Not Reportable 06/17/19 11:34 Not Reportable 06/17/19 11:34 1+ 06/17/19 11:34 1+ 06/17/19 11:34 1+ 06/17/19 11:34 Not Reportable 06/17/19 11:34 Not Reportable 06/17/19 11:34 Not Reportable 06/17/19 11:34 Not Reportable 06/17/19 11:34 Not Reportable 06/17/19 11:34 Not Reportable 06/17/19 11:34 Not Reportable 06/17/19 11:34 Not Reportable 06/17/19 11:34 Not Reportable 06/17/19 11:34 Not Reportable 06/17/19 11:34 Not Reportable 06/17/19 11:34 Not Reportable 06/17/19 11:34 Not Reportable 06/17/19 11:34 Not Reportable 06/17/19 11:34 Not Reportable 06/17/19 11:34 Acanthocytes (Spur) Not Reportable 06/17/19 11:34 Rouleaux Not Reportable 06/17/19 11:34 Not Reportable 06/17/19 11:34 Not Reportable 06/17/19 11:34 Not Reportable 06/17/19 11:34 Not Reportable 06/17/19 11:34 Hem Pathologist Commnt No 06/17/19 11:34 PT 15.8 Sec. (12.2-14.9) H 06/18/19 05:00 INR 1.29 (0.87-1.13) H 06/18/19 05:00 APTT 37.7 Sec. (24.2-36.6) H 06/05/19 11:11 POC ABG pH 7.420 (7.35-7.45) 06/18/19 04:22 POC ABG pCO2 38.0 (35-45) 06/18/19 04:22 POC ABG pO2 56 (80-105) L 06/18/19 04:22 POC ABG HCO3 24.6 (22-26 mml/L) 06/18/19 04:22 POC ABG Total CO2 26 (23-27mmol/L) 06/18/19 04:22 POC ABG O2 Sat 89 06/18/19 04:22 POC ABG Base Excess 0 ((-2) - (+3)mmol/L) 06/18/19 04:22 30 % 06/18/19 04:22 Sodium 145 mmol/L (137-145) 06/18/19 05:00 Potassium 2.2 mmol/L (3.6-5.0) L* D 06/18/19 05:00 Chloride 103.8 mmol/L (98-107) 06/18/19 05:00 Carbon Dioxide 27 mmol/L (22-30) 06/18/19 05:00 16 mmol/L 06/18/19 05:00 BUN 65 mg/dL (9-20) H 06/18/19 05:00 4.0 mg/dL (0.8-1.5) H 06/18/19 05:00 Estimated GFR 18 ml/min 06/18/19 05:00 16 % 06/18/19 05:00 Glucose 110 mg/dL (75-100) H 06/18/19 05:00 POC Glucose 133 (70-105) H 06/18/19 07:40 10.8 % (4-6) H 06/08/19 22:14 Lactic Acid 2.50 mmol/L (0.7-2.0) H* 06/16/19 Unknown Calcium 7.8 mg/dL (8.4-10.2) L 06/18/19 05:00 Phosphorus 4.50 mg/dL (2.5-4.5) D 06/15/19 04:30 Magnesium 1.80 mg/dL (1.7-2.3) 06/18/19 05:00 Iron 9 ug/dL (49-181) L 06/18/19 05:00 TIBC 57 mcg/dL (250-450) L 06/18/19 05:00 1595.0 ng/mL (13.0-400.0) H 06/18/19 05:00 1.00 mg/dL (0.1-1.2) 06/18/19 05:00 AST 25 units/L (5-40) 06/18/19 05:00 ALT 17 units/L (7-56) 06/18/19 05:00 56 units/L (35-129) 06/18/19 05:00 48.0 umol/L (25-60) 06/11/19 17:44 195 units/L (55-170) H 06/14/19 01:38 CK-MB (CK-2) 16.7 ng/mL (0.0-4.0) H 06/13/19 18:47 CK-MB (CK-2) Rel Index 5.6 (0-4) H 06/13/19 18:47 0.011 ng/mL (0.00-0.029) 06/14/19 01:38 24.70 mg/dL (0.00-1.30) H 06/15/19 04:30 NT-Pro-B Natriuret Pep 446.0 pg/mL (0-900) 06/05/19 11:11 4.3 g/dL (6.3-8.2) L 06/18/19 05:00 1.5 g/dL (3.9-5) L 06/18/19 05:00 0.5 % 06/18/19 05:00 Triglycerides 60 mg/dL (2-149) 06/05/19 11:11 Cholesterol 181 mg/dL (50-199) 06/05/19 11:11 68 mg/dL (50-130) 06/05/19 11:11 115 mg/dL (40-59) H 06/05/19 11:11 1.57 % 06/05/19 11:11 Vitamin B12 > 2000 pg/mL (211-911) H 06/18/19 05:00 7.78 ng/mL (7.3-26.0) 06/18/19 05:00 TSH 0.630 mlU/mL (0.270-4.200) 06/05/19 13:26 Free T4 1.04 ng/dL (0.76-1.46) 06/05/19 13:26 Yellow (Yellow) 06/14/19 18:35 Cloudy (Clear) 06/14/19 18:35 5.0 (5.0-7.0) 06/14/19 18:35 Ur Specific [place] 1.009 (1.003-1.030) 06/14/19 18:35 <15 mg/dl mg/dL (Negative) 06/14/19 18:35 >=500 mg/dL (Negative) 06/14/19 18:35 Neg mg/dL (Negative) 06/14/19 18:35 Sm (Negative) 06/14/19 18:35 Neg (Negative) 06/14/19 18:35 Neg (Negative) 06/14/19 18:35 < 2.0 mg/dL (<2.0) 06/14/19 18:35 Ur Leukocyte Esterase Lg (Negative) 06/14/19 18:35 > 182.0 /HPF (0.0-6.0) H 06/14/19 18:35 13.0 /HPF (0.0-6.0) 06/14/19 18:35 3+ /HPF (Negative) 06/14/19 18:35 2+ /HPF 06/14/19 18:35 Few /HPF 06/14/19 18:35 2+ /HPF 06/14/19 18:35 102.7 mg/dL (0.1-20.0) H 06/06/19 17:37 47 mmol/L 06/06/19 17:37 Random Vancomycin 7.0 ug/mL (0-40.0) 06/16/19 Unknown Active Medications - Current Medications Current Medications: Generic Name Dose Route Start Last Admin Trade Name Freq PRN Reason Stop Dose Admin Acetaminophen 650 mg 06/08/19 14:58 Tylenol PO Q4H PRN Pain MILD(1-3)/Fever >100.5/POLANCO Albuterol 2.5 mg 06/14/19 14:00 06/18/19 01:20 Proventil IH 2.5 mg Q6HRT ELIZABETH Administration Lipase/Protease/Amylase 1 each 06/09/19 16:01 Pancreazhiginio Freed 10,500 Unit FEEDTUBE PRN PRN For Clogged Feeding Tube Cholestyramine Resin 4 gm 06/05/19 20:00 06/17/19 20:00 Questran PO 4 gm TID ELIZABETH Administration Dextrose 50 ml 06/05/19 14:03 06/16/19 06:14 D50w (25gm) Syringe IV 50 ml PRN PRN Administration Hypoglycemia Famotidine 20 mg 06/05/19 22:00 06/17/19 10:11 Pepcid PO 20 mg DAILY ELIZABETH Administration Fentanyl 50 mcg 06/14/19 11:17 Sublimaze IV Q10MIN PRN ANALGESIA Ferrous Sulfate 308 mg 06/16/19 10:00 06/17/19 22:00 Ferrous Sulfate PO 308 mg BID ELIZABETH Administration Finasteride 5 mg 06/06/19 10:00 06/17/19 10:11 Proscar PO 5 mg DAILY ELIZABETH Administration Hydralazine HCl 10 mg 06/07/19 14:00 06/07/19 13:42 Apresoline IV 10 mg Q3HR PRN Administration Elevated BP Hydrocortisone Sodium Succinate 100 mg 06/17/19 10:00 06/18/19 05:51 Solu-Cortef IV 06/22/19 09:59 100 mg Q8HR ELIZABETH Administration Hydrophilic Ointment 1 applic 06/14/19 11:17 Vaseline Lip Therapy TP Q2HR PRN Dry Lips Norepinephrine 4 mg in 250 mls @ 7.5 mls/hr 06/14/19 06:15 06/17/19 20:40 Levophed Drip 4 Mg/Ns 250 Ml IV 3 mcg/min TITR ELIZABETH 11.25 mls/hr Administration Protocol 2 MCG/MIN Fentanyl Citrate 2,000 mcg in 100 mls @ 2.46 mls/hr 06/14/19 12:00 06/15/19 08:24 Fentanyl Drip Premix IV 0 mcg/kg/hr TITR ELIZABETH 0 mls/hr Titration Protocol 1 MCG/KG/HR Meropenem 500 mg in 50 mls @ 50 mls/hr 06/16/19 10:00 06/17/19 10:10 Merrem/Ns 500 Mg/50 Ml IV 50 mls/hr Q24HR ELIZABETH Administration Lactated Ringer's 1,000 mls @ 75 mls/hr 06/16/19 11:00 06/18/19 05:52 Lactated Ringers IV 75 mls/hr DIRECT ELIZABETH Administration Potassium Chloride 10 meq in 100 mls @ 100 mls/hr 06/18/19 07:00 Kcl 10meq/100ml IV 06/18/19 10:59 Q1H ELIZABETH Insulin Human Lispro 0 unit 06/13/19 20:00 06/17/19 20:00 Humalog SUB-Q 1 unit Q6H ELIZABETH Administration Protocol Multi-Ingred Cream/Lotion/Oil/Oint 1 applic 06/14/19 11:17 Artificial Tears Ophth Oint OU Q4HR PRN Dry Eye(s) Ondansetron HCl 4 mg 06/08/19 14:58 Zofran IV Q8H PRN Nausea And Vomiting Oxycodone/Acetaminophen 1 tab 06/08/19 14:58 Percocet 5/325 PO Q6H PRN Pain, Moderate (4-6) Simple Syrup 15 ml 06/09/19 16:01 Simple Syrup FEEDTUBE PRN PRN Hypoglycemia Simple Syrup 30 ml 06/09/19 16:01 Simple Syrup FEEDTUBE PRN PRN Hypoglycemia Sodium Bicarbonate 325 mg 06/09/19 16:01 Sodium Bicarbonate FEEDTUBE PRN PRN For Clogged Feeding Tube Sodium Chloride 10 ml 06/05/19 22:00 06/17/19 22:00 Sodium Chloride Flush Syringe 10 Ml IV 10 ml BID ELIZABETH Administration Sodium Chloride 10 ml 06/05/19 14:00 06/13/19 13:04 Sodium Chloride Flush Syringe 10 Ml IV 10 ml PRN PRN Administration LINE FLUSH Tamsulosin HCl 0.4 mg 06/06/19 10:00 06/17/19 10:11 Flomax PO 0.4 mg QDAY ELIZABETH Administration Vitamin B Complex/Vitamin C 1 each 06/06/19 10:00 06/17/19 10:12 Allbee With C PO 1 each QDAY ELIZABETH Administration Nutrition/Malnutrition Assess - Dietary Evaluation Nutrition/Malnutrition Findings: Nutrition Notes Start: 06/06/19 08:45 Freq: Status: Active Protocol: Document 06/17/19 17:58 RM (Rec: 06/17/19 18:08 RM [id number]) Nutrition Notes Initial or Follow up Reassessment Current Diagnosis Acute Kidney Injury,Decubitus( Pressure Ulcer),Sepsis, Hypertension,Malnutrition Other Pertinent Diagnosis Dementia, GERD, UTI, Metabolic encephalopathy Current Diet Glucerna 1.2 at 65ml/hr Labs/Tests K 3.1 Pertinent Medications Levophed Height 6 ft Weight 49.2 kg [place] Body Weight (kg) 80.90 BMI 14.7 Subjective/Other Information Observed Nepro infusing at goal rate. Per nurse pt is tolerating TF. Percent of energy/protein needs met: 99%/100% Burn Absent Trauma Absent #1 Nutrition Diagnosis Malnutrition Diagnosis Progress(for reassessment Continues documentation) Is patient on ventilator? No Is Patient Ambulatory and/or Out of Bed No REE-([facility]-confined to bed) 1571.844 Kcal/Kg value to use for calculation 40 Approximate Energy Requirements Using 1968 kcal/Kg Calculation Used for Recommendations Kcal/kg Additional Notes Pro needs 1.2-1.5g/k-74g/ day Fluid needs 1ml/kcal Nutrition Intervention Nutrition Support: Vital 1.2 at 55 ml/hr Water flush of 100 mls q 4 hrs Kcal 1,584 Protein (gm) 99 Fluid (mL) 1,071 Goal #1 Meet nutritonal needs as best possible via TF Anticipated Discharge Needs: Unable to determine at this time Follow-Up By: 06/19/19 Additional Comments Follow for new TF, K lab - Attestation Statement I have reviewed and agreed w/ Malnutrition eval & tx plan: Yes
[2019-06-18] MEDS ORDERED: MAGNESIUM SULFATE 1 GM in NACL 0.9% 50 ML IV ONE ×2 (09:00→16:06)
[2019-06-18] MEDS: MERREM/NS 500 MG/50 ML 500 MG/50 ML BAG IV SCH (09:01)
[2019-06-18] MEDS: PEPCID PO SCH (09:02)
[2019-06-18] MEDS: ALLBEE WITH C PO SCH (09:02)
[2019-06-18] MEDS: QUESTRAN PO SCH ×3 (09:02→22:56)
[2019-06-18] MEDS: FLOMAX PO SCH (09:02)
[2019-06-18] MEDS: PROSCAR PO SCH (09:03)
[2019-06-18] MEDS: KCL 20MEQ/100ML 20 MEQ/100 ML BAG IV SCH ×2 (09:03→10:26)
[2019-06-18] MEDS: FERROUS SULFATE PO SCH ×2 (09:03→22:56)
[2019-06-18] MEDS: SODIUM CHLORIDE FLUSH SYRINGE 10 ML IV SCH ×2 (09:04→23:15)
--- NOTE | 2019-06-18 09:18 | Progress Note ---
Assessment and Plan 1. Acute kidney injury: Vasomotor PAPITO superimposed on CKD stage 3 in the setting of shock. Renal function leveled off. Monitor renal function. Renal prognosis is guarded. Avoid nephrotoxic agents. Meds dosage based on GFR. 2. FEN: Hypokalemia, replete K. Hypernatremia, monitor. Metabolic acidosis, improved. Monitor lytes. 3. Septic shock: On Levophed. 4. Respiratory failure: On vent. 5. Metabolic Encephalopathy. 6. Anemia: POA. 7. Dysphagia: S/p PEG tube. 8. Adult failure to thrive: Malnourished. Subjective Date of service: 06/18/19 Principal diagnosis: Ac hypoxemic resp failure; Septic shock; PAPITO; Thrombocytopenia; HFrEF Interval history: Patient was seen and examined at the bedside. Patient remain intubated and on vent. Objective - Vital Signs Vital signs: Vital Signs - 12hr 06/17/19 06/17/19 06/17/19 21:21 21:30 21:41 Temperature Pulse Rate 81 80 80 Pulse Rate [ Anterior Bilateral Throughout] Pulse Rate [ Right Dorsalis Pedis] Respiratory 14 14 19 Rate Respiratory Rate [Anterior Bilateral Throughout] Blood Pressure 107/63 112/65 107/63 O2 Sat by Pulse 97 96 97 Oximetry 06/17/19 06/17/19 06/17/19 21:51 22:00 22:07 Temperature Pulse Rate 80 81 81 Pulse Rate [ Anterior Bilateral Throughout] Pulse Rate [ Right Dorsalis Pedis] Respiratory 19 15 15 Rate Respiratory Rate [Anterior Bilateral Throughout] Blood Pressure 111/65 109/67 109/67 O2 Sat by Pulse 97 97 97 Oximetry 06/17/19 06/17/19 06/17/19 22:11 22:21 22:30 Temperature Pulse Rate 83 82 82 Pulse Rate [ Anterior Bilateral Throughout] Pulse Rate [ Right Dorsalis Pedis] Respiratory 15 11 L 13 Rate Respiratory Rate [Anterior Bilateral Throughout] Blood Pressure 109/67 110/71 111/68 O2 Sat by Pulse 98 97 97 Oximetry 06/17/19 06/17/19 06/17/19 22:41 22:51 23:00 Temperature Pulse Rate 82 84 81 Pulse Rate [ Anterior Bilateral Throughout] Pulse Rate [ Right Dorsalis Pedis] Respiratory 12 11 L 12 Rate Respiratory Rate [Anterior Bilateral Throughout] Blood Pressure 111/68 108/66 111/60 O2 Sat by Pulse 98 97 93 Oximetry 06/17/19 06/17/19 06/17/19 23:11 23:20 23:30 Temperature Pulse Rate 81 81 81 Pulse Rate [ Anterior Bilateral Throughout] Pulse Rate [ Right Dorsalis Pedis] Respiratory 18 16 14 Rate Respiratory Rate [Anterior Bilateral Throughout] Blood Pressure 111/60 107/63 108/63 O2 Sat by Pulse 97 96 96 Oximetry 06/17/19 06/17/19 06/18/19 23:41 23:51 00:00 Temperature 97.1 F L Pulse Rate 80 80 81 Pulse Rate [ Anterior Bilateral Throughout] Pulse Rate [ Right Dorsalis Pedis] Respiratory 13 12 13 Rate Respiratory Rate [Anterior Bilateral Throughout] Blood Pressure 107/63 101/60 99/61 O2 Sat by Pulse 97 97 Oximetry 06/18/19 06/18/19 06/18/19 00:11 00:16 00:21 Temperature Pulse Rate 81 82 80 Pulse Rate [ Anterior Bilateral Throughout] Pulse Rate [ Right Dorsalis Pedis] Respiratory 15 15 Rate Respiratory Rate [Anterior Bilateral Throughout] Blood Pressure 99/61 100/64 100/64 O2 Sat by Pulse 97 97 96 Oximetry 06/18/19 06/18/19 06/18/19 00:30 00:41 00:51 Temperature Pulse Rate 81 81 83 Pulse Rate [ Anterior Bilateral Throughout] Pulse Rate [ Right Dorsalis Pedis] Respiratory 15 16 18 Rate Respiratory Rate [Anterior Bilateral Throughout] Blood Pressure 106/62 106/62 108/64 O2 Sat by Pulse 96 97 Oximetry 06/18/19 06/18/19 06/18/19 01:00 01:11 01:20 Temperature Pulse Rate 80 81 Pulse Rate [ 84 Anterior Bilateral Throughout] Pulse Rate [ Right Dorsalis Pedis] Respiratory 15 14 Rate Respiratory 16 Rate [Anterior Bilateral Throughout] Blood Pressure 98/56 98/56 O2 Sat by Pulse 96 97 Oximetry 06/18/19 06/18/19 06/18/19 01:21 01:30 01:41 Temperature Pulse Rate 80 81 81 Pulse Rate [ Anterior Bilateral Throughout] Pulse Rate [ Right Dorsalis Pedis] Respiratory 15 14 16 Rate Respiratory Rate [Anterior Bilateral Throughout] Blood Pressure 96/60 98/54 98/54 O2 Sat by Pulse 97 96 97 Oximetry 06/18/19 06/18/19 06/18/19 01:51 02:00 02:11 Temperature Pulse Rate 82 85 85 Pulse Rate [ Anterior Bilateral Throughout] Pulse Rate [ Right Dorsalis Pedis] Respiratory 12 13 16 Rate Respiratory Rate [Anterior Bilateral Throughout] Blood Pressure 98/59 103/57 103/57 O2 Sat by Pulse 97 96 96 Oximetry 06/18/19 06/18/19 06/18/19 02:21 02:30 02:41 Temperature Pulse Rate 86 86 86 Pulse Rate [ Anterior Bilateral Throughout] Pulse Rate [ Right Dorsalis Pedis] Respiratory 14 12 14 Rate Respiratory Rate [Anterior Bilateral Throughout] Blood Pressure 101/60 105/61 105/61 O2 Sat by Pulse 95 92 Oximetry 06/18/19 06/18/19 06/18/19 02:51 03:01 03:11 Temperature Pulse Rate 81 78 80 Pulse Rate [ Anterior Bilateral Throughout] Pulse Rate [ Right Dorsalis Pedis] Respiratory Rate Respiratory Rate [Anterior Bilateral Throughout] Blood Pressure 107/61 107/61 107/61 O2 Sat by Pulse 91 92 93 Oximetry 06/18/19 06/18/19 06/18/19 03:21 03:31 03:40 Temperature Pulse Rate 85 88 77 Pulse Rate [ Anterior Bilateral Throughout] Pulse Rate [ Right Dorsalis Pedis] Respiratory 13 13 Rate Respiratory Rate [Anterior Bilateral Throughout] Blood Pressure 107/61 107/61 80/44 O2 Sat by Pulse 92 88 Oximetry 06/18/19 06/18/19 06/18/19 03:51 04:00 04:09 Temperature 97.0 F L Pulse Rate 80 81 79 Pulse Rate [ Anterior Bilateral Throughout] Pulse Rate [ 81 Right Dorsalis Pedis] Respiratory 12 19 Rate Respiratory Rate [Anterior Bilateral Throughout] Blood Pressure 85/48 93/52 93/52 O2 Sat by Pulse 91 100 91 Oximetry 06/18/19 06/18/19 06/18/19 04:11 04:21 04:30 Temperature Pulse Rate 81 78 82 Pulse Rate [ Anterior Bilateral Throughout] Pulse Rate [ Right Dorsalis Pedis] Respiratory 12 12 13 Rate Respiratory Rate [Anterior Bilateral Throughout] Blood Pressure 93/52 92/50 96/52 O2 Sat by Pulse 90 96 95 Oximetry 06/18/19 06/18/19 06/18/19 04:41 04:51 05:00 Temperature Pulse Rate 81 81 83 Pulse Rate [ Anterior Bilateral Throughout] Pulse Rate [ Right Dorsalis Pedis] Respiratory 19 17 17 Rate Respiratory Rate [Anterior Bilateral Throughout] Blood Pressure 96/52 93/52 96/54 O2 Sat by Pulse 96 97 Oximetry 06/18/19 06/18/19 06/18/19 05:11 05:21 05:30 Temperature Pulse Rate 83 77 83 Pulse Rate [ Anterior Bilateral Throughout] Pulse Rate [ Right Dorsalis Pedis] Respiratory 16 19 17 Rate Respiratory Rate [Anterior Bilateral Throughout] Blood Pressure 96/54 99/54 100/55 O2 Sat by Pulse 97 97 96 Oximetry 06/18/19 06/18/19 06/18/19 05:41 05:51 06:00 Temperature Pulse Rate 84 84 84 Pulse Rate [ Anterior Bilateral Throughout] Pulse Rate [ Right Dorsalis Pedis] Respiratory 15 14 18 Rate Respiratory Rate [Anterior Bilateral Throughout] Blood Pressure 100/55 100/54 103/55 O2 Sat by Pulse 97 97 Oximetry 06/18/19 06/18/19 08:00 08:50 Temperature 97.3 F L Pulse Rate 87 Pulse Rate [ 85 Anterior Bilateral Throughout] Pulse Rate [ Right Dorsalis Pedis] Respiratory Rate Respiratory 17 Rate [Anterior Bilateral Throughout] Blood Pressure 100/55 O2 Sat by Pulse 97 Oximetry - General Appearance General appearance: well-developed, appears stated age, sedated on ventilator, intubated EENT: ATNC, PERRL Neck: other (Trachea midline) Respiratory: Present: Clear to Ascultation Cardiology: regular, S1S2, no murmurs Gastrointestinal: normoactive bowel sounds, no tenderness, no distended, other (PEG tube, Kruse catheter) Integumentary: no rash Neurologic: obtunded Musculoskeletal: other (trace LE edema ) - Lab 06/18/19 05:00 06/18/19 14:44 Most recent lab results Calcium 7.8 mg/dL (8.4-10.2) L 06/18/19 05:00 Phosphorus 4.50 mg/dL (2.5-4.5) D 06/15/19 04:30 Magnesium 1.80 mg/dL (1.7-2.3) 06/18/19 05:00 102.7 mg/dL (0.1-20.0) H 06/06/19 17:37 47 mmol/L 06/06/19 17:37 Medications & Allergies - Medications Allergies/Adverse Reactions: Allergies No Known Allergies Allergy (Verified 05/19/19 22:08) Home Medications: Home Medications Medication Instructions Recorded Confirmed Last Taken Type Cholestyramine/Aspartame 239.4 mg PO TID 05/20/19 06/05/19 Unknown History [Cholestyramine Light Powder] Famotidine [Pepcid] 20 mg PO BID 05/20/19 06/05/19 Unknown History Ferrous Gluconate [Fergon 240 MG 240 mg PO BID 05/20/19 06/05/19 Unknown History tab] Finasteride [Proscar] 5 mg PO DAILY 05/20/19 06/05/19 Unknown History Mirtazapine [Remeron 15mg TAB] 15 mg PO QHS 05/20/19 06/05/19 Unknown History Tamsulosin [Flomax] 0.4 mg PO QDAY 05/20/19 06/05/19 Unknown History Vitamin B Complex [B Complex] 1 each PO DAILY 05/20/19 06/05/19 Unknown History Aspirin EC 81 mg PO QDAY tablet 05/22/19 06/05/19 Unknown Rx Insulin Regular, Human [HumuLIN R] 0 units SUB-Q ACHS units 05/22/19 06/05/19 Unknown Rx Megestrol [Megace] 400 mg PO QDAY oral.liqd 05/22/19 06/05/19 Unknown Rx Insulin NPH/Regular [NovoLIN 70/30] 10 unit SQ BIDDIAB #1 vial 05/27/19 06/05/19 Unknown Rx Metoprolol [Lopressor TAB] 12.5 mg PO BID #60 tablet 05/27/19 06/05/19 Unknown Rx amLODIPine [Norvasc] 10 mg PO QDAY #60 tablet 05/27/19 06/05/19 Unknown Rx Active Medications: Generic Name Dose Route Start Last Admin Trade Name Freq PRN Reason Stop Dose Admin Acetaminophen 650 mg 06/08/19 14:58 Tylenol PO Q4H PRN Pain MILD(1-3)/Fever >100.5/POLANCO Albuterol 2.5 mg 06/14/19 14:00 06/18/19 01:20 Proventil IH 2.5 mg Q6HRT ELIZABETH Administration Lipase/Protease/Amylase 1 each 06/09/19 16:01 Pancrerojelio Freed 10,500 Unit FEEDTUBE PRN PRN For Clogged Feeding Tube Cholestyramine Resin 4 gm 06/05/19 20:00 06/18/19 09:02 Questran PO 4 gm TID ELIZABETH Administration Dextrose 50 ml 06/05/19 14:03 06/16/19 06:14 D50w (25gm) Syringe IV 50 ml PRN PRN Administration Hypoglycemia Famotidine 20 mg 06/05/19 22:00 06/18/19 09:02 Pepcid PO 20 mg DAILY ELIZABETH Administration Fentanyl 50 mcg 06/14/19 11:17 Sublimaze IV Q10MIN PRN ANALGESIA Ferrous Sulfate 308 mg 06/16/19 10:00 06/18/19 09:03 Ferrous Sulfate PO 308 mg BID ELIZABETH Administration Finasteride 5 mg 06/06/19 10:00 06/18/19 09:03 Proscar PO 5 mg DAILY ELIZABETH Administration Hydralazine HCl 10 mg 06/07/19 14:00 06/07/19 13:42 Apresoline IV 10 mg Q3HR PRN Administration Elevated BP Hydrocortisone Sodium Succinate 100 mg 06/17/19 10:00 06/18/19 05:51 Solu-Cortef IV 06/22/19 09:59 100 mg Q8HR ELIZABETH Administration Hydrophilic Ointment 1 applic 06/14/19 11:17 Vaseline Lip Therapy TP Q2HR PRN Dry Lips Norepinephrine 4 mg in 250 mls @ 7.5 mls/hr 06/14/19 06:15 06/18/19 09:04 Levophed Drip 4 Mg/Ns 250 Ml IV 2 mcg/min TITR ELIZABETH 7.5 mls/hr Titration Protocol 2 MCG/MIN Fentanyl Citrate 2,000 mcg in 100 mls @ 2.46 mls/hr 06/14/19 12:00 06/15/19 08:24 Fentanyl Drip Premix IV 0 mcg/kg/hr TITR ELIZABETH 0 mls/hr Titration Protocol 1 MCG/KG/HR Meropenem 500 mg in 50 mls @ 50 mls/hr 06/16/19 10:00 06/18/19 09:01 Merrem/Ns 500 Mg/50 Ml IV 50 mls/hr Q24HR ELIZABETH Administration Magnesium Sulfate 1 gm/ Sodium 52 mls @ 52 mls/hr 06/18/19 09:00 06/18/19 09: 03 Chloride IV 06/18/19 09:59 52 mls/hr ONCE ONE Administration Potassium Chloride 20 meq in 100 mls @ 100 mls/hr 06/18/19 09:00 06/18/19 09:03 Kcl 20meq/100ml IV 06/18/19 10:59 100 mls/hr Q1H ELIZABETH Administration Insulin Human Lispro 0 unit 06/18/19 12:00 Humalog SUB-Q Q6HR ELIZABETH Protocol Multi-Ingred Cream/Lotion/Oil/Oint 1 applic 06/14/19 11:17 Artificial Tears Ophth Oint OU Q4HR PRN Dry Eye(s) Ondansetron HCl 4 mg 06/08/19 14:58 Zofran IV Q8H PRN Nausea And Vomiting Oxycodone/Acetaminophen 1 tab 06/08/19 14:58 Percocet 5/325 PO Q6H PRN Pain, Moderate (4-6) Simple Syrup 15 ml 06/09/19 16:01 Simple Syrup FEEDTUBE PRN PRN Hypoglycemia Simple Syrup 30 ml 06/09/19 16:01 Simple Syrup FEEDTUBE PRN PRN Hypoglycemia Sodium Bicarbonate 325 mg 06/09/19 16:01 Sodium Bicarbonate FEEDTUBE PRN PRN For Clogged Feeding Tube Sodium Chloride 10 ml 06/05/19 22:00 06/18/19 09:04 Sodium Chloride Flush Syringe 10 Ml IV 10 ml BID ELIZABETH Administration Sodium Chloride 10 ml 06/05/19 14:00 06/13/19 13:04 Sodium Chloride Flush Syringe 10 Ml IV 10 ml PRN PRN Administration LINE FLUSH Tamsulosin HCl 0.4 mg 06/06/19 10:00 06/18/19 09:02 Flomax PO 0.4 mg QDAY ELIZABETH Administration Vitamin B Complex/Vitamin C 1 each 06/06/19 10:00 06/18/19 09:02 Allbee With C PO 1 each QDAY ELIZABETH Administration
--- NOTE | 2019-06-18 11:32 | Consultation ---
REFERRED BY: Dr. Cassidy. REASON FOR CONSULTATION: Thrombocytopenia. HISTORY OF PRESENT ILLNESS: I saw the patient, a 68-year-old male in the ICU. The patient was admitted on 06/05/2019. He has had prolonged stay. He has past history of dementia, malnutrition, GERD, and hypertension. The patient was stuporous. As per the information available, the patient's son noticed that he has been having progressive weakness and not able to take care of himself. He was found to be confused, unable to stand nonverbal and EMS was called. During this admission, the patient has been seen by Nephrology team, GI team, Surgical team, Neurology team, and Cardiology team. Blood counts were progressive falling and I have been asked to evaluate the patient. The patient was found to have ESBL Klebsiella pneumonia. He was found to be hypotensive, pressors were started intubated. Renal functions are worsening. The patient is on the vent, not responding. REVIEW OF SYSTEMS: Not reliable. Most of the information comes from medical records. PAST MEDICAL HISTORY: As above, GERD, hypertension, dementia, and malnutrition. SURGICAL HISTORY: Not available. SOCIAL HISTORY: . FAMILY HISTORY: Noncontributory. ALLERGIES: None. PRESENT MEDICATIONS: Include Tylenol, albuterol, dextrose, Pepcid, fentanyl, ferrous sulfate, hydralazine, meropenem, Zofran, and Percocet. PHYSICAL EXAMINATION: VITAL SIGNS: Temperature 97, pulse 84, respirations 18, BP 103/55, pallor present. No icterus. NECK: No neck lymph nodes. HEART: S1, S2. LUNGS: Clear to auscultation anteriorly. ABDOMEN: Soft. NEUROLOGIC: Not able to evaluate. LABORATORY DATA: White cell 1.3, hemoglobin 7.3, MCV 86, platelet 14, potassium 2.2, creatinine 4, calcium 7.8, bilirubin 1. Serum iron 9, ferritin 1500. B12 more than 2000, folate 7.7. RADIOLOGY: The patient has had renal ultrasound and chest x-ray. ASSESSMENT: 1. Anemia, thrombocytopenia, leukopenia, pancytopenia. At admission, white cell count was normal and then it had started going down after 06/15/2019. This may be secondary to infection. 2. Anemia. At admission, hemoglobin is normal. Elevated ferritin. 3. Thrombocytopenia. HIT antibodies have been requested. At admission, platelet was normal. He had a hypotensive episode. Sometimes, these events would cause it. Other medications may also have a role. 4. Metabolic encephalopathy. Neurology is following. 5. Respiratory failure on intubation. 6. History of cardiogenic shock and was on pressors. 7. Sepsis, extended-spectrum beta-lactamases. ID is following. 8. Pneumonia. 9. Urinary tract infection. 10. Cardiomyopathy. 11. Renal impairment. 12. Dementia. 13. Diabetes. 14. History of bradycardia. 15. We will plan and do ultrasound abdomen. Pharmacy will have to see if any medication can be reversed. If there is bleeding, transfusion support is an option. JOB# [id number] ARMEN/LEON
[2019-06-18] MEDS ORDERED: NACL 0.9% 500 ML 500 ML IV ONE (11:50)
[2019-06-18] MEDS ORDERED: DOBUTREX DRIP 500MG/D5W 250ML 500 MG/250 ML BAG IV SCH (12:00)
[2019-06-18 13:28] LABS: Calcium 7.9 mg/dL (8.4-10.2)
--- NOTE | 2019-06-18 13:39 | Progress Note ---
Assessment and Plan Acute hypoxemic respiratory failure on supplemental oxygen Severe Sepsis with shock Acute metabolic encephalopathy Acute renal failure Severe protein calorie malnutrition Sinus Bradycardia Thrombocytopenia Cardiomyopathy EF 25% Metabolic acidosis, probably secondary to sepsis and renal failure Leucopenia - reduce Psupp to 10 cm H2O - reduce duoneb treatments to bid - Wean supplemental oxygen to keep O2 sats>90% - VAP bundle addressed - continue bronchodilators with pulmonary hygiene per RT - continue lung protective strategies - continue enteric nutrition via PEG at goal rate as tolerated - continue antiinfective's per ID rec's (de-escalate based on clinical and microbiologic data) - continue heparin for VTE prophylaxis, monitor platelet counts. - continue to monitor for bleeding - continue mobility protocols to prevent pressure ulcers - Cardio-protective measures - continue to avoid nephrotoxins, adjust all medications for GFR, CrcL - Azotemia per nephrology team otherwise - wean vasopressors to keep MAP > 65 mmHg (adding vasopressin) - continue chronic disease med's per attending - daily SAT's and SBT assessment as tolerated - Titrate sedation to RASS 0 to -1 - continue accuchecks with glycemic control per SSI for target blood glucose 140 - 180 mg/dL acutely - Agitation management - Prevention of delirium, maintenance of sleep-wake cycle - VTE and Stress ulcer prophylaxis - continue other care per attending / other consultants .... re-evaluate in am & prn CONDITION: CRITICAL PROGNOSIS: GUARDED CODE STATUS: FULL The high probability of a clinically significant, sudden or life-threatening deterioration of the [respiratory and cardiac] system(s) required my full and d irect attention, intervention and personal management. The aggregate critical care time was [33] minutes without overlap. Time includes spent on; [x] Data Review and interpretation [x] Patient assessment and monitoring of vital signs [x] Documentation [x] Medication orders and management Subjective Date of service: 06/18/19 Principal diagnosis: Ac hypoxemic resp failure; Septic shock; PAPITO; Thrombocytopenia; HFrEF Interval history: Patient is seen today for: Acute hypoxemic respiratory failure; Severe sepsis with shock; Acute metabolic encephalopathy; Acute renal failure; Severe protein calorie malnutrition; Sinus Bradycardia; Thrombocytopenia; Cardiomyopathy EF 25% ; Metabolic acidosis; Leucopenia Seen and examined at bedside; 24hour events reviewed; nursing and respiratory care staff consulted; no adverse overnight events reported to me; remains on PSV mode with Psupp at 10 cm H2O; AMS still precludes safe extubation; no emesis or overt aspiration; Son visited earlier Objective Vital Signs - 12hr 06/18/19 06/18/19 06/18/19 01:41 01:51 02:00 Temperature Pulse Rate 81 82 85 Pulse Rate [ Anterior Bilateral Throughout] Pulse Rate [ Right Dorsalis Pedis] Respiratory 16 12 13 Rate Respiratory Rate [Anterior Bilateral Throughout] Blood Pressure 98/54 98/59 103/57 O2 Sat by Pulse 97 97 96 Oximetry 06/18/19 06/18/19 06/18/19 02:11 02:21 02:30 Temperature Pulse Rate 85 86 86 Pulse Rate [ Anterior Bilateral Throughout] Pulse Rate [ Right Dorsalis Pedis] Respiratory 16 14 12 Rate Respiratory Rate [Anterior Bilateral Throughout] Blood Pressure 103/57 101/60 105/61 O2 Sat by Pulse 96 95 Oximetry 06/18/19 06/18/19 06/18/19 02:41 02:51 03:01 Temperature Pulse Rate 86 81 78 Pulse Rate [ Anterior Bilateral Throughout] Pulse Rate [ Right Dorsalis Pedis] Respiratory 14 Rate Respiratory Rate [Anterior Bilateral Throughout] Blood Pressure 105/61 107/61 107/61 O2 Sat by Pulse 92 91 92 Oximetry 06/18/19 06/18/19 06/18/19 03:11 03:21 03:31 Temperature Pulse Rate 80 85 88 Pulse Rate [ Anterior Bilateral Throughout] Pulse Rate [ Right Dorsalis Pedis] Respiratory 13 Rate Respiratory Rate [Anterior Bilateral Throughout] Blood Pressure 107/61 107/61 107/61 O2 Sat by Pulse 93 92 Oximetry 06/18/19 06/18/19 06/18/19 03:40 03:51 04:00 Temperature 97.0 F L Pulse Rate 77 80 81 Pulse Rate [ Anterior Bilateral Throughout] Pulse Rate [ 81 Right Dorsalis Pedis] Respiratory 13 12 19 Rate Respiratory Rate [Anterior Bilateral Throughout] Blood Pressure 80/44 85/48 93/52 O2 Sat by Pulse 88 91 100 Oximetry 06/18/19 06/18/19 06/18/19 04:09 04:11 04:21 Temperature Pulse Rate 79 81 78 Pulse Rate [ Anterior Bilateral Throughout] Pulse Rate [ Right Dorsalis Pedis] Respiratory 12 12 Rate Respiratory Rate [Anterior Bilateral Throughout] Blood Pressure 93/52 93/52 92/50 O2 Sat by Pulse 91 90 96 Oximetry 06/18/19 06/18/19 06/18/19 04:30 04:41 04:51 Temperature Pulse Rate 82 81 81 Pulse Rate [ Anterior Bilateral Throughout] Pulse Rate [ Right Dorsalis Pedis] Respiratory 13 19 17 Rate Respiratory Rate [Anterior Bilateral Throughout] Blood Pressure 96/52 96/52 93/52 O2 Sat by Pulse 95 96 97 Oximetry 06/18/19 06/18/19 06/18/19 05:00 05:11 05:21 Temperature Pulse Rate 83 83 77 Pulse Rate [ Anterior Bilateral Throughout] Pulse Rate [ Right Dorsalis Pedis] Respiratory 17 16 19 Rate Respiratory Rate [Anterior Bilateral Throughout] Blood Pressure 96/54 96/54 99/54 O2 Sat by Pulse 97 97 Oximetry 06/18/19 06/18/19 06/18/19 05:30 05:41 05:51 Temperature Pulse Rate 83 84 84 Pulse Rate [ Anterior Bilateral Throughout] Pulse Rate [ Right Dorsalis Pedis] Respiratory 17 15 14 Rate Respiratory Rate [Anterior Bilateral Throughout] Blood Pressure 100/55 100/55 100/54 O2 Sat by Pulse 96 97 97 Oximetry 06/18/19 06/18/19 06/18/19 06:00 06:11 06:21 Temperature Pulse Rate 84 84 83 Pulse Rate [ Anterior Bilateral Throughout] Pulse Rate [ Right Dorsalis Pedis] Respiratory 18 11 L 13 Rate Respiratory Rate [Anterior Bilateral Throughout] Blood Pressure 103/55 103/55 98/57 O2 Sat by Pulse 97 97 Oximetry 06/18/19 06/18/19 06/18/19 06:30 06:41 06:51 Temperature Pulse Rate 85 85 87 Pulse Rate [ Anterior Bilateral Throughout] Pulse Rate [ Right Dorsalis Pedis] Respiratory 17 18 16 Rate Respiratory Rate [Anterior Bilateral Throughout] Blood Pressure 104/57 104/57 106/58 O2 Sat by Pulse 98 98 Oximetry 06/18/19 06/18/19 06/18/19 07:00 07:10 07:21 Temperature Pulse Rate 84 83 82 Pulse Rate [ Anterior Bilateral Throughout] Pulse Rate [ Right Dorsalis Pedis] Respiratory 19 15 14 Rate Respiratory Rate [Anterior Bilateral Throughout] Blood Pressure 108/58 108/58 104/54 O2 Sat by Pulse 98 98 Oximetry 06/18/19 06/18/19 06/18/19 07:30 07:41 07:51 Temperature Pulse Rate 83 84 81 Pulse Rate [ Anterior Bilateral Throughout] Pulse Rate [ Right Dorsalis Pedis] Respiratory 20 15 16 Rate Respiratory Rate [Anterior Bilateral Throughout] Blood Pressure 99/56 99/56 105/58 O2 Sat by Pulse 97 97 Oximetry 06/18/19 06/18/19 06/18/19 08:00 08:11 08:21 Temperature 97.3 F L Pulse Rate 84 82 83 Pulse Rate [ Anterior Bilateral Throughout] Pulse Rate [ Right Dorsalis Pedis] Respiratory 13 18 18 Rate Respiratory Rate [Anterior Bilateral Throughout] Blood Pressure 107/58 107/58 101/55 O2 Sat by Pulse 97 97 97 Oximetry 06/18/19 06/18/19 06/18/19 08:30 08:41 08:50 Temperature Pulse Rate 86 82 87 Pulse Rate [ 85 Anterior Bilateral Throughout] Pulse Rate [ Right Dorsalis Pedis] Respiratory 15 20 Rate Respiratory 17 Rate [Anterior Bilateral Throughout] Blood Pressure 107/56 107/56 100/55 O2 Sat by Pulse 96 97 97 Oximetry 06/18/19 06/18/19 06/18/19 08:51 09:00 09:11 Temperature Pulse Rate 86 84 86 Pulse Rate [ Anterior Bilateral Throughout] Pulse Rate [ Right Dorsalis Pedis] Respiratory 18 15 16 Rate Respiratory Rate [Anterior Bilateral Throughout] Blood Pressure 100/55 99/54 99/54 O2 Sat by Pulse 97 97 Oximetry 06/18/19 06/18/19 06/18/19 09:21 09:30 09:41 Temperature Pulse Rate 86 86 86 Pulse Rate [ Anterior Bilateral Throughout] Pulse Rate [ Right Dorsalis Pedis] Respiratory 11 L 10 L 14 Rate Respiratory Rate [Anterior Bilateral Throughout] Blood Pressure 94/57 116/58 116/58 O2 Sat by Pulse 97 97 Oximetry 06/18/19 06/18/19 06/18/19 09:51 10:00 10:11 Temperature Pulse Rate 84 87 88 Pulse Rate [ Anterior Bilateral Throughout] Pulse Rate [ Right Dorsalis Pedis] Respiratory 10 L 12 9 L Rate Respiratory Rate [Anterior Bilateral Throughout] Blood Pressure 120/61 121/64 121/64 O2 Sat by Pulse 97 98 Oximetry 06/18/19 06/18/19 06/18/19 10:21 10:30 10:41 Temperature Pulse Rate 91 H 86 86 Pulse Rate [ Anterior Bilateral Throughout] Pulse Rate [ Right Dorsalis Pedis] Respiratory 12 10 L 14 Rate Respiratory Rate [Anterior Bilateral Throughout] Blood Pressure 119/66 86/50 86/50 O2 Sat by Pulse 99 97 Oximetry 06/18/19 06/18/19 06/18/19 10:51 11:00 11:11 Temperature Pulse Rate 86 86 86 Pulse Rate [ Anterior Bilateral Throughout] Pulse Rate [ Right Dorsalis Pedis] Respiratory 11 L 11 L 12 Rate Respiratory Rate [Anterior Bilateral Throughout] Blood Pressure 105/58 119/61 119/61 O2 Sat by Pulse 97 97 97 Oximetry 06/18/19 06/18/19 06/18/19 11:21 11:30 11:41 Temperature Pulse Rate 87 81 86 Pulse Rate [ Anterior Bilateral Throughout] Pulse Rate [ Right Dorsalis Pedis] Respiratory 13 11 L 17 Rate Respiratory Rate [Anterior Bilateral Throughout] Blood Pressure 121/62 79/43 96/52 O2 Sat by Pulse 97 97 97 Oximetry 06/18/19 06/18/19 11:51 12:00 Temperature 97.3 F L Pulse Rate 85 Pulse Rate [ Anterior Bilateral Throughout] Pulse Rate [ Right Dorsalis Pedis] Respiratory 11 L Rate Respiratory Rate [Anterior Bilateral Throughout] Blood Pressure 123/63 O2 Sat by Pulse 96 Oximetry Constitutional: other (elderly looking, emaciated AAM, normocephalic and atraumatic with mildly increased respiratory effort at rest) Eyes: non-icteric ENT: oropharynx moist, other (ETT 23 cm GLORIA) Neck: supple, no lymphadenopathy, no JVD Effort: mildly labored Ascultation: Bilateral: diminished breath sounds, rales Percussion: Bilateral: not dull Cardiovascular: regular rate and rhythm, other (tachycardia) Gastrointestinal: normoactive bowel sounds, soft, non-tender, non-distended Integumentary: rash, decubitus ulcer Extremities: no cyanosis, no edema, pulses normal, no ischemia or petechiae, other (left tibial IO device) Neurologic: other (awake and alert, not obeying commands) Psychiatric: other (Unable to assess re AMS) CBC and BMP: 06/19/19 05:00 06/19/19 05:00 ABG, PT/INR, D-dimer: ABG POC ABG pH 7.420 (7.35-7.45) 06/18/19 04:22 POC ABG pCO2 38.0 (35-45) 06/18/19 04:22 POC ABG pO2 56 (80-105) L 06/18/19 04:22 POC ABG HCO3 24.6 (22-26 mml/L) 06/18/19 04:22 POC ABG Total CO2 26 (23-27mmol/L) 06/18/19 04:22 POC ABG O2 Sat 89 06/18/19 04:22 PT/INR, D-dimer PT 15.8 Sec. (12.2-14.9) H 06/18/19 05:00 INR 1.29 (0.87-1.13) H 06/18/19 05:00 Abnormal lab findings: Abnormal Labs 06/05/19 06/05/19 06/05/19 10:24 11:11 11:11 WBC RBC Hgb 11.2 L Hct 33.2 L RDW 17.3 H Plt Count [place] % (Auto) Lymph # 0.9 L Seg Neutrophils % 76.0 H Seg Neuts % (Manual) Monocytes % (Manual) Nucleated RBC % Seg Neutrophils # Seg Neutrophils # Man Lymphocytes # (Manual) PT INR APTT 37.7 H POC ABG pH POC ABG pCO2 POC ABG pO2 Sodium Potassium Chloride Carbon Dioxide BUN Creatinine Glucose POC Glucose 125 H Hemoglobin A1c Lactic Acid Calcium Phosphorus Magnesium Iron TIBC Ferritin AST Alkaline Phosphatase Total Creatine Kinase CK-MB (CK-2) CK-MB (CK-2) Rel Index Troponin T C-Reactive Protein Total Protein Albumin HDL Cholesterol Vitamin B12 Urine WBC (Auto) Urine Creatinine 06/05/19 06/05/19 06/05/19 11:11 11:11 11:36 WBC RBC Hgb Hct RDW Plt Count [place] % (Auto) Lymph # Seg Neutrophils % Seg Neuts % (Manual) Monocytes % (Manual) Nucleated RBC % Seg Neutrophils # Seg Neutrophils # Man Lymphocytes # (Manual) PT INR APTT POC ABG pH POC ABG pCO2 POC ABG pO2 Sodium 147 H Potassium Chloride 115.9 H Carbon Dioxide 18 L BUN 45 H Creatinine 2.4 H Glucose 118 H POC Glucose 109 H Hemoglobin A1c Lactic Acid 0.50 L Calcium Phosphorus Magnesium Iron TIBC Ferritin AST Alkaline Phosphatase 147 H Total Creatine Kinase CK-MB (CK-2) CK-MB (CK-2) Rel Index Troponin T 0.047 H C-Reactive Protein Total Protein Albumin 3.5 L HDL Cholesterol 115 H Vitamin B12 Urine WBC (Auto) Urine Creatinine 06/05/19 06/05/19 06/05/19 13:21 14:03 16:16 WBC RBC Hgb Hct RDW Plt Count [place] % (Auto) Lymph # Seg Neutrophils % Seg Neuts % (Manual) Monocytes % (Manual) Nucleated RBC % Seg Neutrophils # Seg Neutrophils # Man Lymphocytes # (Manual) PT INR APTT POC ABG pH POC ABG pCO2 POC ABG pO2 Sodium Potassium Chloride Carbon Dioxide BUN Creatinine Glucose POC Glucose 56 L Hemoglobin A1c Lactic Acid 0.50 L Calcium Phosphorus Magnesium Iron TIBC Ferritin AST Alkaline Phosphatase Total Creatine Kinase CK-MB (CK-2) CK-MB (CK-2) Rel Index Troponin T C-Reactive Protein Total Protein Albumin HDL Cholesterol Vitamin B12 Urine WBC (Auto) 14.0 H Urine Creatinine 06/05/19 06/05/19 06/05/19 18:52 19:38 20:07 WBC RBC Hgb Hct RDW Plt Count [place] % (Auto) Lymph # Seg Neutrophils % Seg Neuts % (Manual) Monocytes % (Manual) Nucleated RBC % Seg Neutrophils # Seg Neutrophils # Man Lymphocytes # (Manual) PT INR APTT POC ABG pH POC ABG pCO2 POC ABG pO2 Sodium Potassium Chloride Carbon Dioxide BUN Creatinine Glucose 128 H POC Glucose < 40 L 140 H Hemoglobin A1c Lactic Acid Calcium Phosphorus Magnesium Iron TIBC Ferritin AST Alkaline Phosphatase Total Creatine Kinase CK-MB (CK-2) CK-MB (CK-2) Rel Index Troponin T C-Reactive Protein Total Protein Albumin HDL Cholesterol Vitamin B12 Urine WBC (Auto) Urine Creatinine 06/05/19 06/06/19 06/06/19 21:46 02:06 04:22 WBC RBC Hgb Hct RDW 18.1 H Plt Count [place] % (Auto) Lymph # Seg Neutrophils % 71.8 H Seg Neuts % (Manual) Monocytes % (Manual) Nucleated RBC % Seg Neutrophils # Seg Neutrophils # Man Lymphocytes # (Manual) PT INR APTT POC ABG pH POC ABG pCO2 POC ABG pO2 Sodium Potassium Chloride Carbon Dioxide BUN Creatinine Glucose POC Glucose 141 H 213 H Hemoglobin A1c Lactic Acid Calcium Phosphorus Magnesium Iron TIBC Ferritin AST Alkaline Phosphatase Total Creatine Kinase CK-MB (CK-2) CK-MB (CK-2) Rel Index Troponin T C-Reactive Protein Total Protein Albumin HDL Cholesterol Vitamin B12 Urine WBC (Auto) Urine Creatinine 06/06/19 06/06/19 06/06/19 04:22 05:20 07:42 WBC RBC Hgb Hct RDW Plt Count [place] % (Auto) Lymph # Seg Neutrophils % Seg Neuts % (Manual) Monocytes % (Manual) Nucleated RBC % Seg Neutrophils # Seg Neutrophils # Man Lymphocytes # (Manual) PT INR APTT POC ABG pH POC ABG pCO2 POC ABG pO2 Sodium Potassium 5.1 H Chloride 112.2 H Carbon Dioxide 13 L BUN 44 H Creatinine 2.3 H Glucose 182 H POC Glucose 237 H 247 H Hemoglobin A1c Lactic Acid Calcium Phosphorus Magnesium 2.60 H Iron TIBC Ferritin AST 45 H Alkaline Phosphatase 164 H Total Creatine Kinase CK-MB (CK-2) CK-MB (CK-2) Rel Index Troponin T C-Reactive Protein Total Protein Albumin 3.5 L HDL Cholesterol Vitamin B12 Urine WBC (Auto) Urine Creatinine 06/06/19 06/06/19 06/06/19 10:48 13:19 17:34 WBC RBC Hgb Hct RDW Plt Count [place] % (Auto) Lymph # Seg Neutrophils % Seg Neuts % (Manual) Monocytes % (Manual) Nucleated RBC % Seg Neutrophils # Seg Neutrophils # Man Lymphocytes # (Manual) PT INR APTT POC ABG pH POC ABG pCO2 POC ABG pO2 Sodium Potassium Chloride Carbon Dioxide BUN Creatinine Glucose POC Glucose 167 H 108 H < 40 L Hemoglobin A1c Lactic Acid Calcium Phosphorus Magnesium Iron TIBC Ferritin AST Alkaline Phosphatase Total Creatine Kinase CK-MB (CK-2) CK-MB (CK-2) Rel Index Troponin T C-Reactive Protein Total Protein Albumin HDL Cholesterol Vitamin B12 Urine WBC (Auto) Urine Creatinine 06/06/19 06/06/19 06/06/19 17:37 18:10 20:50 WBC RBC Hgb Hct RDW Plt Count [place] % (Auto) Lymph # Seg Neutrophils % Seg Neuts % (Manual) Monocytes % (Manual) Nucleated RBC % Seg Neutrophils # Seg Neutrophils # Man Lymphocytes # (Manual) PT INR APTT POC ABG pH POC ABG pCO2 POC ABG pO2 Sodium Potassium Chloride Carbon Dioxide BUN Creatinine Glucose 71 L POC Glucose 227 H Hemoglobin A1c Lactic Acid Calcium Phosphorus Magnesium Iron TIBC Ferritin AST Alkaline Phosphatase Total Creatine Kinase CK-MB (CK-2) CK-MB (CK-2) Rel Index Troponin T C-Reactive Protein Total Protein Albumin HDL Cholesterol Vitamin B12 Urine WBC (Auto) Urine Creatinine 102.7 H 06/07/19 06/07/19 06/07/19 02:36 05:40 07:59 WBC RBC Hgb Hct RDW Plt Count [place] % (Auto) Lymph # Seg Neutrophils % Seg Neuts % (Manual) Monocytes % (Manual) Nucleated RBC % Seg Neutrophils # Seg Neutrophils # Man Lymphocytes # (Manual) PT INR APTT POC ABG pH POC ABG pCO2 POC ABG pO2 Sodium Potassium Chloride Carbon Dioxide BUN Creatinine Glucose POC Glucose 144 H 183 H 207 H Hemoglobin A1c Lactic Acid Calcium Phosphorus Magnesium Iron TIBC Ferritin AST Alkaline Phosphatase Total Creatine Kinase CK-MB (CK-2) CK-MB (CK-2) Rel Index Troponin T C-Reactive Protein Total Protein Albumin HDL Cholesterol Vitamin B12 Urine WBC (Auto) Urine Creatinine 06/07/19 06/07/19 06/07/19 11:40 14:35 15:12 WBC RBC Hgb Hct RDW Plt Count [place] % (Auto) Lymph # Seg Neutrophils % Seg Neuts % (Manual) Monocytes % (Manual) Nucleated RBC % Seg Neutrophils # Seg Neutrophils # Man Lymphocytes # (Manual) PT INR APTT POC ABG pH POC ABG pCO2 POC ABG pO2 Sodium Potassium Chloride Carbon Dioxide BUN 40 H Creatinine 2.2 H Glucose 154 H POC Glucose 160 H 164 H Hemoglobin A1c Lactic Acid Calcium Phosphorus Magnesium Iron TIBC Ferritin AST Alkaline Phosphatase Total Creatine Kinase CK-MB (CK-2) CK-MB (CK-2) Rel Index Troponin T C-Reactive Protein Total Protein Albumin HDL Cholesterol Vitamin B12 Urine WBC (Auto) Urine Creatinine 06/07/19 06/07/19 06/08/19 16:35 21:43 02:00 WBC RBC Hgb Hct RDW Plt Count [place] % (Auto) Lymph # Seg Neutrophils % Seg Neuts % (Manual) Monocytes % (Manual) Nucleated RBC % Seg Neutrophils # Seg Neutrophils # Man Lymphocytes # (Manual) PT INR APTT POC ABG pH POC ABG pCO2 POC ABG pO2 Sodium Potassium Chloride Carbon Dioxide BUN Creatinine Glucose POC Glucose 181 H 62 L 126 H Hemoglobin A1c Lactic Acid Calcium Phosphorus Magnesium Iron TIBC Ferritin AST Alkaline Phosphatase Total Creatine Kinase CK-MB (CK-2) CK-MB (CK-2) Rel Index Troponin T C-Reactive Protein Total Protein Albumin HDL Cholesterol Vitamin B12 Urine WBC (Auto) Urine Creatinine 06/08/19 06/08/19 06/08/19 05:46 05:55 05:55 WBC 3.1 L RBC Hgb 10.8 L Hct 31.6 L D RDW 16.8 H Plt Count [place] % (Auto) 14.3 H Lymph # 0.9 L Seg Neutrophils % Seg Neuts % (Manual) Monocytes % (Manual) Nucleated RBC % Seg Neutrophils # 1.6 L Seg Neutrophils # Man Lymphocytes # (Manual) PT INR APTT POC ABG pH POC ABG pCO2 POC ABG pO2 Sodium Potassium Chloride Carbon Dioxide 21 L BUN 38 H Creatinine 2.2 H Glucose 167 H POC Glucose 147 H Hemoglobin A1c Lactic Acid Calcium Phosphorus Magnesium Iron TIBC Ferritin AST Alkaline Phosphatase 130 H Total Creatine Kinase CK-MB (CK-2) CK-MB (CK-2) Rel Index Troponin T C-Reactive Protein Total Protein 6.2 L Albumin 3.0 L HDL Cholesterol Vitamin B12 Urine WBC (Auto) Urine Creatinine 06/08/19 06/08/19 06/08/19 07:48 17:49 21:47 WBC RBC Hgb Hct RDW Plt Count [place] % (Auto) Lymph # Seg Neutrophils % Seg Neuts % (Manual) Monocytes % (Manual) Nucleated RBC % Seg Neutrophils # Seg Neutrophils # Man Lymphocytes # (Manual) PT INR APTT POC ABG pH POC ABG pCO2 POC ABG pO2 Sodium Potassium Chloride Carbon Dioxide BUN Creatinine Glucose POC Glucose 179 H 127 H 161 H Hemoglobin A1c Lactic Acid Calcium Phosphorus Magnesium Iron TIBC Ferritin AST Alkaline Phosphatase Total Creatine Kinase CK-MB (CK-2) CK-MB (CK-2) Rel Index Troponin T C-Reactive Protein Total Protein Albumin HDL Cholesterol Vitamin B12 Urine WBC (Auto) Urine Creatinine 06/08/19 06/09/19 06/09/19 22:14 03:12 04:34 WBC RBC Hgb Hct RDW Plt Count [place] % (Auto) Lymph # Seg Neutrophils % Seg Neuts % (Manual) Monocytes % (Manual) Nucleated RBC % Seg Neutrophils # Seg Neutrophils # Man Lymphocytes # (Manual) PT INR APTT POC ABG pH POC ABG pCO2 POC ABG pO2 Sodium Potassium Chloride Carbon Dioxide BUN Creatinine Glucose POC Glucose 59 L 163 H Hemoglobin A1c 10.8 H Lactic Acid Calcium Phosphorus Magnesium Iron TIBC Ferritin AST Alkaline Phosphatase Total Creatine Kinase CK-MB (CK-2) CK-MB (CK-2) Rel Index Troponin T C-Reactive Protein Total Protein Albumin HDL Cholesterol Vitamin B12 Urine WBC (Auto) Urine Creatinine 06/09/19 06/09/19 06/09/19 05:02 07:39 08:34 WBC 3.1 L RBC Hgb 10.6 L Hct 31.7 L RDW 17.0 H Plt Count [place] % (Auto) 13.8 H Lymph # 1.0 L Seg Neutrophils % Seg Neuts % (Manual) Monocytes % (Manual) Nucleated RBC % Seg Neutrophils # 1.5 L Seg Neutrophils # Man Lymphocytes # (Manual) PT INR APTT POC ABG pH POC ABG pCO2 POC ABG pO2 Sodium Potassium Chloride Carbon Dioxide BUN 37 H Creatinine 2.0 H Glucose 176 H POC Glucose 206 H Hemoglobin A1c Lactic Acid Calcium Phosphorus Magnesium Iron TIBC Ferritin AST Alkaline Phosphatase Total Creatine Kinase CK-MB (CK-2) CK-MB (CK-2) Rel Index Troponin T C-Reactive Protein Total Protein 5.8 L Albumin 2.8 L HDL Cholesterol Vitamin B12 Urine WBC (Auto) Urine Creatinine 06/09/19 06/09/19 06/10/19 17:55 21:36 05:20 WBC RBC Hgb Hct RDW Plt Count [place] % (Auto) Lymph # Seg Neutrophils % Seg Neuts % (Manual) Monocytes % (Manual) Nucleated RBC % Seg Neutrophils # Seg Neutrophils # Man Lymphocytes # (Manual) PT INR APTT POC ABG pH POC ABG pCO2 POC ABG pO2 Sodium Potassium 3.3 L Chloride Carbon Dioxide BUN 34 H Creatinine 2.0 H Glucose 212 H POC Glucose 265 H 132 H Hemoglobin A1c Lactic Acid Calcium Phosphorus Magnesium Iron TIBC Ferritin AST Alkaline Phosphatase Total Creatine Kinase CK-MB (CK-2) CK-MB (CK-2) Rel Index Troponin T C-Reactive Protein Total Protein Albumin HDL Cholesterol Vitamin B12 Urine WBC (Auto) Urine Creatinine 06/10/19 06/10/19 06/10/19 05:20 07:00 11:48 WBC 4.4 L RBC 3.47 L Hgb 10.0 L Hct 29.6 L RDW 16.9 H Plt Count [place] % (Auto) Lymph # Seg Neutrophils % Seg Neuts % (Manual) Monocytes % (Manual) Nucleated RBC % Seg Neutrophils # Seg Neutrophils # Man Lymphocytes # (Manual) PT INR APTT POC ABG pH POC ABG pCO2 POC ABG pO2 Sodium Potassium Chloride Carbon Dioxide BUN Creatinine Glucose POC Glucose 249 H 279 H Hemoglobin A1c Lactic Acid Calcium Phosphorus Magnesium Iron TIBC Ferritin AST Alkaline Phosphatase Total Creatine Kinase CK-MB (CK-2) CK-MB (CK-2) Rel Index Troponin T C-Reactive Protein Total Protein Albumin HDL Cholesterol Vitamin B12 Urine WBC (Auto) Urine Creatinine 06/10/19 06/10/19 06/10/19 18:25 21:50 23:22 WBC RBC Hgb Hct RDW Plt Count [place] % (Auto) Lymph # Seg Neutrophils % Seg Neuts % (Manual) Monocytes % (Manual) Nucleated RBC % Seg Neutrophils # Seg Neutrophils # Man Lymphocytes # (Manual) PT INR APTT POC ABG pH POC ABG pCO2 POC ABG pO2 Sodium Potassium Chloride Carbon Dioxide BUN Creatinine Glucose POC Glucose 157 H 58 L 124 H Hemoglobin A1c Lactic Acid Calcium Phosphorus Magnesium Iron TIBC Ferritin AST Alkaline Phosphatase Total Creatine Kinase CK-MB (CK-2) CK-MB (CK-2) Rel Index Troponin T C-Reactive Protein Total Protein Albumin HDL Cholesterol Vitamin B12 Urine WBC (Auto) Urine Creatinine 06/11/19 06/11/19 06/11/19 05:15 06:48 11:52 WBC RBC Hgb Hct RDW Plt Count [place] % (Auto) Lymph # Seg Neutrophils % Seg Neuts % (Manual) Monocytes % (Manual) Nucleated RBC % Seg Neutrophils # Seg Neutrophils # Man Lymphocytes # (Manual) PT INR APTT POC ABG pH POC ABG pCO2 POC ABG pO2 Sodium Potassium 3.4 L Chloride 108.1 H Carbon Dioxide BUN 30 H Creatinine 2.0 H Glucose 358 H POC Glucose 441 H 339 H Hemoglobin A1c Lactic Acid Calcium Phosphorus Magnesium Iron TIBC Ferritin AST Alkaline Phosphatase Total Creatine Kinase CK-MB (CK-2) CK-MB (CK-2) Rel Index Troponin T C-Reactive Protein Total Protein Albumin HDL Cholesterol Vitamin B12 Urine WBC (Auto) Urine Creatinine 06/11/19 06/11/19 06/12/19 17:41 23:52 05:38 WBC RBC Hgb Hct RDW Plt Count [place] % (Auto) Lymph # Seg Neutrophils % Seg Neuts % (Manual) Monocytes % (Manual) Nucleated RBC % Seg Neutrophils # Seg Neutrophils # Man Lymphocytes # (Manual) PT INR APTT POC ABG pH POC ABG pCO2 POC ABG pO2 Sodium Potassium Chloride 115.2 H Carbon Dioxide 18 L BUN 32 H Creatinine 2.0 H Glucose 164 H POC Glucose 311 H 119 H Hemoglobin A1c Lactic Acid Calcium Phosphorus 1.30 L Magnesium Iron TIBC Ferritin AST Alkaline Phosphatase Total Creatine Kinase CK-MB (CK-2) CK-MB (CK-2) Rel Index Troponin T C-Reactive Protein Total Protein Albumin HDL Cholesterol Vitamin B12 Urine WBC (Auto) Urine Creatinine 06/12/19 06/12/19 06/12/19 06:41 10:34 11:49 WBC RBC Hgb Hct RDW Plt Count [place] % (Auto) Lymph # Seg Neutrophils % Seg Neuts % (Manual) Monocytes % (Manual) Nucleated RBC % Seg Neutrophils # Seg Neutrophils # Man Lymphocytes # (Manual) PT INR APTT POC ABG pH POC ABG pCO2 POC ABG pO2 Sodium Potassium Chloride Carbon Dioxide BUN Creatinine Glucose POC Glucose 178 H 198 H 200 H Hemoglobin A1c Lactic Acid Calcium Phosphorus Magnesium Iron TIBC Ferritin AST Alkaline Phosphatase Total Creatine Kinase CK-MB (CK-2) CK-MB (CK-2) Rel Index Troponin T C-Reactive Protein Total Protein Albumin HDL Cholesterol Vitamin B12 Urine WBC (Auto) Urine Creatinine 06/12/19 06/12/19 06/13/19 13:30 17:19 04:51 WBC RBC 3.48 L Hgb 10.1 L Hct 30.0 L RDW 18.3 H Plt Count 129 L [place] % (Auto) Lymph # Seg Neutrophils % Seg Neuts % (Manual) Monocytes % (Manual) Nucleated RBC % Seg Neutrophils # Seg Neutrophils # Man Lymphocytes # (Manual) PT INR APTT POC ABG pH 7.235 L POC ABG pCO2 POC ABG pO2 200 H Sodium Potassium Chloride Carbon Dioxide BUN Creatinine Glucose POC Glucose 167 H Hemoglobin A1c Lactic Acid Calcium Phosphorus Magnesium Iron TIBC Ferritin AST Alkaline Phosphatase Total Creatine Kinase CK-MB (CK-2) CK-MB (CK-2) Rel Index Troponin T C-Reactive Protein Total Protein Albumin HDL Cholesterol Vitamin B12 Urine WBC (Auto) Urine Creatinine 06/13/19 06/13/19 06/13/19 04:51 11:45 14:34 WBC RBC Hgb Hct RDW Plt Count [place] % (Auto) Lymph # Seg Neutrophils % Seg Neuts % (Manual) Monocytes % (Manual) Nucleated RBC % Seg Neutrophils # Seg Neutrophils # Man Lymphocytes # (Manual) PT INR APTT POC ABG pH 7.184 L POC ABG pCO2 POC ABG pO2 Sodium Potassium Chloride 112.4 H Carbon Dioxide 17 L BUN 36 H Creatinine 2.0 H Glucose 329 H POC Glucose 338 H Hemoglobin A1c Lactic Acid Calcium Phosphorus Magnesium Iron TIBC Ferritin AST Alkaline Phosphatase Total Creatine Kinase CK-MB (CK-2) CK-MB (CK-2) Rel Index Troponin T C-Reactive Protein Total Protein Albumin HDL Cholesterol Vitamin B12 Urine WBC (Auto) Urine Creatinine 06/13/19 06/13/19 06/13/19 17:39 18:47 20:12 WBC RBC Hgb Hct RDW Plt Count [place] % (Auto) Lymph # Seg Neutrophils % Seg Neuts % (Manual) Monocytes % (Manual) Nucleated RBC % Seg Neutrophils # Seg Neutrophils # Man Lymphocytes # (Manual) PT INR APTT POC ABG pH 7.178 L 7.186 L POC ABG pCO2 POC ABG pO2 70 L 74 L Sodium Potassium Chloride Carbon Dioxide BUN Creatinine Glucose POC Glucose Hemoglobin A1c Lactic Acid Calcium Phosphorus Magnesium Iron TIBC Ferritin AST Alkaline Phosphatase Total Creatine Kinase 295 H CK-MB (CK-2) 16.7 H CK-MB (CK-2) Rel Index 5.6 H Troponin T C-Reactive Protein Total Protein Albumin HDL Cholesterol Vitamin B12 Urine WBC (Auto) Urine Creatinine 06/13/19 06/13/19 06/14/19 21:52 23:52 00:20 WBC RBC Hgb Hct RDW Plt Count [place] % (Auto) Lymph # Seg Neutrophils % Seg Neuts % (Manual) Monocytes % (Manual) Nucleated RBC % Seg Neutrophils # Seg Neutrophils # Man Lymphocytes # (Manual) PT INR APTT POC ABG pH POC ABG pCO2 POC ABG pO2 Sodium Potassium Chloride Carbon Dioxide BUN Creatinine Glucose POC Glucose 387 H 321 H Hemoglobin A1c Lactic Acid 4.50 H* Calcium Phosphorus Magnesium Iron TIBC Ferritin AST Alkaline Phosphatase Total Creatine Kinase CK-MB (CK-2) CK-MB (CK-2) Rel Index Troponin T C-Reactive Protein Total Protein Albumin HDL Cholesterol Vitamin B12 Urine WBC (Auto) Urine Creatinine 06/14/19 06/14/19 06/14/19 01:04 01:38 01:38 WBC 2.7 L RBC Hgb 11.5 L Hct 35.1 L RDW 18.1 H Plt Count [place] % (Auto) Lymph # Seg Neutrophils % Seg Neuts % (Manual) Monocytes % (Manual) Nucleated RBC % Seg Neutrophils # Seg Neutrophils # Man Lymphocytes # (Manual) PT INR APTT POC ABG pH 7.259 L POC ABG pCO2 32.8 L POC ABG pO2 79 L Sodium Potassium 3.5 L D Chloride 112.2 H Carbon Dioxide 18 L BUN 39 H Creatinine 2.1 H Glucose 293 H POC Glucose Hemoglobin A1c Lactic Acid Calcium Phosphorus Magnesium Iron TIBC Ferritin AST Alkaline Phosphatase Total Creatine Kinase 195 H CK-MB (CK-2) CK-MB (CK-2) Rel Index Troponin T C-Reactive Protein Total Protein Albumin HDL Cholesterol Vitamin B12 Urine WBC (Auto) Urine Creatinine 06/14/19 06/14/19 06/14/19 04:55 06:12 08:06 WBC RBC Hgb Hct RDW Plt Count [place] % (Auto) Lymph # Seg Neutrophils % Seg Neuts % (Manual) Monocytes % (Manual) Nucleated RBC % Seg Neutrophils # Seg Neutrophils # Man Lymphocytes # (Manual) PT INR APTT POC ABG pH POC ABG pCO2 POC ABG pO2 Sodium Potassium Chloride Carbon Dioxide BUN Creatinine Glucose POC Glucose 233 H Hemoglobin A1c Lactic Acid 4.60 H* 4.70 H* Calcium Phosphorus Magnesium Iron TIBC Ferritin AST Alkaline Phosphatase Total Creatine Kinase CK-MB (CK-2) CK-MB (CK-2) Rel Index Troponin T C-Reactive Protein Total Protein Albumin HDL Cholesterol Vitamin B12 Urine WBC (Auto) Urine Creatinine 06/14/19 06/14/19 06/14/19 09:02 10:59 11:25 WBC RBC Hgb Hct RDW Plt Count [place] % (Auto) Lymph # Seg Neutrophils % Seg Neuts % (Manual) Monocytes % (Manual) Nucleated RBC % Seg Neutrophils # Seg Neutrophils # Man Lymphocytes # (Manual) PT INR APTT POC ABG pH 7.269 L POC ABG pCO2 POC ABG pO2 53 L Sodium Potassium Chloride Carbon Dioxide BUN Creatinine Glucose POC Glucose 121 H Hemoglobin A1c Lactic Acid 5.00 H* Calcium Phosphorus Magnesium Iron TIBC Ferritin AST Alkaline Phosphatase Total Creatine Kinase CK-MB (CK-2) CK-MB (CK-2) Rel Index Troponin T C-Reactive Protein Total Protein Albumin HDL Cholesterol Vitamin B12 Urine WBC (Auto) Urine Creatinine 06/14/19 06/14/19 06/14/19 12:57 15:21 15:21 WBC RBC Hgb Hct RDW Plt Count [place] % (Auto) Lymph # Seg Neutrophils % Seg Neuts % (Manual) Monocytes % (Manual) Nucleated RBC % Seg Neutrophils # Seg Neutrophils # Man Lymphocytes # (Manual) PT INR APTT POC ABG pH 7.306 L POC ABG pCO2 POC ABG pO2 74 L Sodium Potassium Chloride Carbon Dioxide BUN Creatinine Glucose POC Glucose 147 H Hemoglobin A1c Lactic Acid 5.20 H* Calcium Phosphorus Magnesium Iron TIBC Ferritin AST Alkaline Phosphatase Total Creatine Kinase CK-MB (CK-2) CK-MB (CK-2) Rel Index Troponin T C-Reactive Protein Total Protein Albumin HDL Cholesterol Vitamin B12 Urine WBC (Auto) Urine Creatinine 06/14/19 06/14/19 06/14/19 18:35 18:50 20:43 WBC RBC Hgb Hct RDW Plt Count [place] % (Auto) Lymph # Seg Neutrophils % Seg Neuts % (Manual) Monocytes % (Manual) Nucleated RBC % Seg Neutrophils # Seg Neutrophils # Man Lymphocytes # (Manual) PT INR APTT POC ABG pH 7.281 L POC ABG pCO2 POC ABG pO2 Sodium Potassium Chloride Carbon Dioxide BUN Creatinine Glucose POC Glucose 192 H Hemoglobin A1c Lactic Acid Calcium Phosphorus Magnesium Iron TIBC Ferritin AST Alkaline Phosphatase Total Creatine Kinase CK-MB (CK-2) CK-MB (CK-2) Rel Index Troponin T C-Reactive Protein Total Protein Albumin HDL Cholesterol Vitamin B12 Urine WBC (Auto) > 182.0 H Urine Creatinine 06/15/19 06/15/19 06/15/19 00:20 04:30 04:30 WBC RBC 3.57 L Hgb 10.1 L Hct 30.7 L RDW 18.0 H Plt Count 90 L [place] % (Auto) Lymph # Seg Neutrophils % Seg Neuts % (Manual) Monocytes % (Manual) Nucleated RBC % Seg Neutrophils # Seg Neutrophils # Man Lymphocytes # (Manual) PT INR APTT POC ABG pH POC ABG pCO2 POC ABG pO2 Sodium Potassium 5.7 H D Chloride Carbon Dioxide 14 L BUN 47 H Creatinine 3.4 H D Glucose 383 H POC Glucose 334 H Hemoglobin A1c Lactic Acid Calcium 7.5 L D Phosphorus Magnesium Iron TIBC Ferritin AST Alkaline Phosphatase Total Creatine Kinase CK-MB (CK-2) CK-MB (CK-2) Rel Index Troponin T C-Reactive Protein 24.70 H Total Protein Albumin HDL Cholesterol Vitamin B12 Urine WBC (Auto) Urine Creatinine 06/15/19 06/15/19 06/15/19 04:30 06:24 09:34 WBC RBC Hgb Hct RDW Plt Count [place] % (Auto) Lymph # Seg Neutrophils % Seg Neuts % (Manual) Monocytes % (Manual) Nucleated RBC % Seg Neutrophils # Seg Neutrophils # Man Lymphocytes # (Manual) PT INR APTT POC ABG pH POC ABG pCO2 POC ABG pO2 Sodium Potassium Chloride Carbon Dioxide BUN Creatinine Glucose POC Glucose 438 H 413 H Hemoglobin A1c Lactic Acid 8.90 H* Calcium Phosphorus Magnesium Iron TIBC Ferritin AST Alkaline Phosphatase Total Creatine Kinase CK-MB (CK-2) CK-MB (CK-2) Rel Index Troponin T C-Reactive Protein Total Protein Albumin HDL Cholesterol Vitamin B12 Urine WBC (Auto) Urine Creatinine 06/15/19 06/15/19 06/15/19 09:59 11:49 17:45 WBC RBC Hgb Hct RDW Plt Count [place] % (Auto) Lymph # Seg Neutrophils % Seg Neuts % (Manual) Monocytes % (Manual) Nucleated RBC % Seg Neutrophils # Seg Neutrophils # Man Lymphocytes # (Manual) PT INR APTT POC ABG pH POC ABG pCO2 POC ABG pO2 Sodium Potassium Chloride Carbon Dioxide BUN Creatinine Glucose POC Glucose 327 H Hemoglobin A1c Lactic Acid 8.20 H* 5.00 H* Calcium Phosphorus Magnesium Iron TIBC Ferritin AST Alkaline Phosphatase Total Creatine Kinase CK-MB (CK-2) CK-MB (CK-2) Rel Index Troponin T C-Reactive Protein Total Protein Albumin HDL Cholesterol Vitamin B12 Urine WBC (Auto) Urine Creatinine 06/15/19 06/15/19 06/16/19 17:51 20:55 04:34 WBC RBC Hgb Hct RDW Plt Count [place] % (Auto) Lymph # Seg Neutrophils % Seg Neuts % (Manual) Monocytes % (Manual) Nucleated RBC % Seg Neutrophils # Seg Neutrophils # Man Lymphocytes # (Manual) PT INR APTT POC ABG pH 7.517 H 7.541 H POC ABG pCO2 30.7 L POC ABG pO2 63 L 62 L Sodium Potassium Chloride Carbon Dioxide BUN Creatinine Glucose POC Glucose 171 H Hemoglobin A1c Lactic Acid Calcium Phosphorus Magnesium Iron TIBC Ferritin AST Alkaline Phosphatase Total Creatine Kinase CK-MB (CK-2) CK-MB (CK-2) Rel Index Troponin T C-Reactive Protein Total Protein Albumin HDL Cholesterol Vitamin B12 Urine WBC (Auto) Urine Creatinine 06/16/19 06/16/19 06/16/19 06:43 08:35 11:23 WBC RBC Hgb Hct RDW Plt Count [place] % (Auto) Lymph # Seg Neutrophils % Seg Neuts % (Manual) Monocytes % (Manual) Nucleated RBC % Seg Neutrophils # Seg Neutrophils # Man Lymphocytes # (Manual) PT INR APTT POC ABG pH POC ABG pCO2 POC ABG pO2 Sodium Potassium Chloride Carbon Dioxide BUN Creatinine Glucose POC Glucose 127 H Hemoglobin A1c Lactic Acid 3.00 H* 3.00 H* Calcium Phosphorus Magnesium Iron TIBC Ferritin AST Alkaline Phosphatase Total Creatine Kinase CK-MB (CK-2) CK-MB (CK-2) Rel Index Troponin T C-Reactive Protein Total Protein Albumin HDL Cholesterol Vitamin B12 Urine WBC (Auto) Urine Creatinine 06/16/19 06/16/19 06/16/19 17:47 Unknown Unknown WBC RBC Hgb Hct RDW Plt Count [place] % (Auto) Lymph # Seg Neutrophils % Seg Neuts % (Manual) Monocytes % (Manual) Nucleated RBC % Seg Neutrophils # Seg Neutrophils # Man Lymphocytes # (Manual) PT 18.6 H INR 1.59 H APTT POC ABG pH POC ABG pCO2 POC ABG pO2 66 L Sodium Potassium Chloride Carbon Dioxide BUN Creatinine Glucose POC Glucose Hemoglobin A1c Lactic Acid 2.50 H* Calcium Phosphorus Magnesium Iron TIBC Ferritin AST Alkaline Phosphatase Total Creatine Kinase CK-MB (CK-2) CK-MB (CK-2) Rel Index Troponin T C-Reactive Protein Total Protein Albumin HDL Cholesterol Vitamin B12 Urine WBC (Auto) Urine Creatinine 06/16/19 06/17/19 06/17/19 Unknown 01:58 02:15 WBC RBC Hgb Hct RDW Plt Count [place] % (Auto) Lymph # Seg Neutrophils % Seg Neuts % (Manual) Monocytes % (Manual) Nucleated RBC % Seg Neutrophils # Seg Neutrophils # Man Lymphocytes # (Manual) PT INR APTT POC ABG pH POC ABG pCO2 POC ABG pO2 Sodium 146 H Potassium Chloride Carbon Dioxide BUN 54 H Creatinine 3.7 H Glucose 47 L POC Glucose 144 H 139 H Hemoglobin A1c Lactic Acid Calcium 6.8 L Phosphorus Magnesium Iron TIBC Ferritin AST Alkaline Phosphatase Total Creatine Kinase CK-MB (CK-2) CK-MB (CK-2) Rel Index Troponin T C-Reactive Protein Total Protein Albumin HDL Cholesterol Vitamin B12 Urine WBC (Auto) Urine Creatinine 06/17/19 06/17/19 06/17/19 04:30 05:54 05:54 WBC 1.5 L* RBC 2.55 L Hgb 7.3 L Hct 21.6 L D RDW 16.7 H Plt Count 18 L* [place] % (Auto) Lymph # Seg Neutrophils % Seg Neuts % (Manual) Monocytes % (Manual) Nucleated RBC % 1.0 H Seg Neutrophils # Seg Neutrophils # Man 1.0 L Lymphocytes # (Manual) 0.3 L PT 15.2 H INR 1.23 H APTT POC ABG pH POC ABG pCO2 POC ABG pO2 63 L Sodium Potassium Chloride Carbon Dioxide BUN Creatinine Glucose POC Glucose Hemoglobin A1c Lactic Acid Calcium Phosphorus Magnesium Iron TIBC Ferritin AST Alkaline Phosphatase Total Creatine Kinase CK-MB (CK-2) CK-MB (CK-2) Rel Index Troponin T C-Reactive Protein Total Protein Albumin HDL Cholesterol Vitamin B12 Urine WBC (Auto) Urine Creatinine 06/17/19 06/17/19 06/17/19 05:54 07:55 11:34 WBC 1.3 L* RBC 2.55 L Hgb 7.5 L Hct 21.8 L RDW 17.4 H Plt Count 14 L* [place] % (Auto) Lymph # Seg Neutrophils % Seg Neuts % (Manual) 72.0 H Monocytes % (Manual) 12.0 H Nucleated RBC % 12.0 H Seg Neutrophils # Seg Neutrophils # Man 0.0 L Lymphocytes # (Manual) 0.0 L PT INR APTT POC ABG pH POC ABG pCO2 POC ABG pO2 Sodium Potassium 3.1 L D Chloride Carbon Dioxide BUN 61 H Creatinine 4.0 H Glucose 194 H POC Glucose 204 H Hemoglobin A1c Lactic Acid Calcium 7.3 L Phosphorus Magnesium Iron TIBC Ferritin AST Alkaline Phosphatase Total Creatine Kinase CK-MB (CK-2) CK-MB (CK-2) Rel Index Troponin T C-Reactive Protein Total Protein Albumin HDL Cholesterol Vitamin B12 Urine WBC (Auto) Urine Creatinine 06/17/19 06/17/19 06/17/19 11:42 15:45 20:14 WBC RBC Hgb Hct RDW Plt Count [place] % (Auto) Lymph # Seg Neutrophils % Seg Neuts % (Manual) Monocytes % (Manual) Nucleated RBC % Seg Neutrophils # Seg Neutrophils # Man Lymphocytes # (Manual) PT INR APTT POC ABG pH POC ABG pCO2 POC ABG pO2 Sodium Potassium Chloride Carbon Dioxide BUN Creatinine Glucose POC Glucose 221 H 202 H 169 H Hemoglobin A1c Lactic Acid Calcium Phosphorus Magnesium Iron TIBC Ferritin AST Alkaline Phosphatase Total Creatine Kinase CK-MB (CK-2) CK-MB (CK-2) Rel Index Troponin T C-Reactive Protein Total Protein Albumin HDL Cholesterol Vitamin B12 Urine WBC (Auto) Urine Creatinine 06/18/19 06/18/19 06/18/19 04:22 05:00 05:00 WBC RBC Hgb Hct RDW Plt Count [place] % (Auto) Lymph # Seg Neutrophils % Seg Neuts % (Manual) Monocytes % (Manual) Nucleated RBC % Seg Neutrophils # Seg Neutrophils # Man Lymphocytes # (Manual) PT 15.8 H INR 1.29 H APTT POC ABG pH POC ABG pCO2 POC ABG pO2 56 L Sodium Potassium 2.2 L* D Chloride Carbon Dioxide BUN 65 H Creatinine 4.0 H Glucose 110 H POC Glucose Hemoglobin A1c Lactic Acid Calcium 7.8 L Phosphorus Magnesium Iron 9 L TIBC 57 L Ferritin AST Alkaline Phosphatase Total Creatine Kinase CK-MB (CK-2) CK-MB (CK-2) Rel Index Troponin T C-Reactive Protein Total Protein 4.3 L Albumin 1.5 L HDL Cholesterol Vitamin B12 Urine WBC (Auto) Urine Creatinine 06/18/19 06/18/19 06/18/19 05:00 05:00 05:00 WBC 1.3 L* RBC 2.57 L Hgb 7.3 L Hct 22.0 L RDW 16.9 H Plt Count 14 L* [place] % (Auto) Lymph # Seg Neutrophils % Seg Neuts % (Manual) Monocytes % (Manual) Nucleated RBC % Seg Neutrophils # Seg Neutrophils # Man Lymphocytes # (Manual) PT INR APTT POC ABG pH POC ABG pCO2 POC ABG pO2 Sodium Potassium Chloride Carbon Dioxide BUN Creatinine Glucose POC Glucose Hemoglobin A1c Lactic Acid Calcium Phosphorus Magnesium Iron TIBC Ferritin 1595.0 H AST Alkaline Phosphatase Total Creatine Kinase CK-MB (CK-2) CK-MB (CK-2) Rel Index Troponin T C-Reactive Protein Total Protein Albumin HDL Cholesterol Vitamin B12 > 2000 H Urine WBC (Auto) Urine Creatinine 06/18/19 06/18/19 06/18/19 07:40 12:35 12:47 WBC RBC Hgb Hct RDW Plt Count [place] % (Auto) Lymph # Seg Neutrophils % Seg Neuts % (Manual) Monocytes % (Manual) Nucleated RBC % Seg Neutrophils # Seg Neutrophils # Man Lymphocytes # (Manual) PT INR APTT POC ABG pH POC ABG pCO2 POC ABG pO2 Sodium 148 H Potassium Chloride Carbon Dioxide BUN 68 H Creatinine 3.9 H Glucose 171 H POC Glucose 133 H 196 H Hemoglobin A1c Lactic Acid Calcium 7.9 L Phosphorus Magnesium Iron TIBC Ferritin AST Alkaline Phosphatase Total Creatine Kinase CK-MB (CK-2) CK-MB (CK-2) Rel Index Troponin T C-Reactive Protein Total Protein Albumin HDL Cholesterol Vitamin B12 Urine WBC (Auto) Urine Creatinine Chest x-ray: image reviewed (persistent bilateral infiltrates and small effusions) Allied health notes reviewed: nursing
--- NOTE | 2019-06-18 15:52 | Progress Note ---
Assessment and Plan Previous Cultures: 05/19/2019 Blood: no growth 05/19/2019 Urine: ESBL Klebsiella Cultures: 06/14/19 BCX - NGTD 06/14/19 trach asp - MRSA 06/05/2019 Urine: ESBL Klebsiella 06/05/2019 Blood: NGTD A/P: 68 yo M PMHx dementia, malnutrition, GERD, HTN admitted with AMS, ESBL UTI. 1) Shock - at this point I do not believe it is septic shock given he has had effective treatment for some time now. More likely to be cardiogenic shock. Would continue the vancomycin and meropenem to complete a 10 day course, and then stop. 2) Metabolic encephalopathy: - non-responsive. CT head normal. Brain MRI shows stable chronic encephalomalacia in the left frontal lobe and left cerebellar hemisphere. Verbal defects expected. Neurology following. 3) Dementia 4) GERD 5) Malnutrition - s/p EGD and Peg placement 06/09/19 6) HTN 7) PAPITO v/s CKD: renally dose abx. 8) Pancytopenia - worsening leukopenia and thrombocytopenia. Unclear etiology. Recs: - continue vancomycin and renally adjusted meropenem to complete 10 day course - f/u Bcx - OK for PICC line as CoNS in BCx likely contaminant. - grim prognosis We will continue to follow with you. We appreciate being involved in Mr. Paulino's care. Aissatou Mccormick MD [facility] ([facility]) C: [phone] O: [phone] F: [phone] Subjective Date of service: 06/18/19 Principal diagnosis: Ac hypoxemic resp failure; Septic shock; PAPITO; Thrombocytopenia; HFrEF Interval history: Not responsive to verbal commands. Remains intubated. On 2 pressors still Objective - Exam Narrative Exam: Constitutional: awake, no distress, doesn't follow commands. Head, Ears, Nose: Normocephalic, atraumatic. External ears, nose normal Eyes: Conjunctivae/corneas clear. No icterus. No ptosis. Neck: Supple, no meningeal signs Oral: Intubated Cardiovascular: S1, S2 normal. Normal rhythm Respiratory: Good air entry, clear to auscultation bilaterally GI: Soft, non-tender; bowel sounds normal. No peritoneal signs Musculoskeletal: No pedal edema Skin: Numerous abrasion and excoriations on all extremities. R thigh bandaged. Hem/Lymphatic: No palpable cervical or supraclavicular nodes. No lymphangitis Psych: no agitation Neurological: Not moving, intubated, not responsive. - Constitutional Vitals: Vital Signs Temp Pulse Resp BP Pulse Ox 97.3 F L 95 H 11 L 131/66 96 06/18/19 12:00 06/18/19 14:11 06/18/19 14:11 06/18/19 14:11 06/18/19 14:11 Temperature -Last 24 Hours Temperature 97.3 F Temperature 97.3 F Temperature 97.0 F Temperature 97.1 F Temperature 96.9 F Temperature 97.4 F - Labs CBC & Chem 7: 06/18/19 05:00 06/18/19 12:35 Labs: Abnormal lab results 06/17/19 06/17/19 06/18/19 Range/Units 11:34 20:14 04:22 WBC 1.3 L* (4.5-11.0) K/mm3 RBC (3.65-5.03) M/mm3 Hgb (11.8-15.2) gm/dl Hct (35.5-45.6) % RDW (13.2-15.2) % Plt Count 14 L* (140-440) K/mm3 Seg Neuts % (Manual) 72.0 H (40.0-70.0) % Monocytes % (Manual) 12.0 H (0.0-7.3) % Nucleated RBC % 12.0 H (0.0-0.9) % Seg Neutrophils # Man 0.0 L (1.8-7.7) K/mm3 Lymphocytes # (Manual) 0.0 L (1.2-5.4) K/mm3 PT (12.2-14.9) Sec. INR (0.87-1.13) POC ABG pO2 56 L (80-105) Sodium (137-145) mmol/L Potassium (3.6-5.0) mmol/L BUN (9-20) mg/dL Creatinine (0.8-1.5) mg/dL Glucose (75-100) mg/dL POC Glucose 169 H (70-105) Calcium (8.4-10.2) mg/dL Iron (49-181) ug/dL TIBC (250-450) mcg/dL Ferritin (13.0-400.0) ng/mL Total Protein (6.3-8.2) g/dL Albumin (3.9-5) g/dL Vitamin B12 (211-911) pg/mL 06/18/19 06/18/19 06/18/19 Range/Units 05:00 05:00 05:00 WBC 1.3 L* (4.5-11.0) K/mm3 RBC 2.57 L (3.65-5.03) M/mm3 Hgb 7.3 L (11.8-15.2) gm/dl Hct 22.0 L (35.5-45.6) % RDW 16.9 H (13.2-15.2) % Plt Count 14 L* (140-440) K/mm3 Seg Neuts % (Manual) (40.0-70.0) % Monocytes % (Manual) (0.0-7.3) % Nucleated RBC % (0.0-0.9) % Seg Neutrophils # Man (1.8-7.7) K/mm3 Lymphocytes # (Manual) (1.2-5.4) K/mm3 PT 15.8 H (12.2-14.9) Sec. INR 1.29 H (0.87-1.13) POC ABG pO2 (80-105) Sodium (137-145) mmol/L Potassium 2.2 L* D (3.6-5.0) mmol/L BUN 65 H (9-20) mg/dL Creatinine 4.0 H (0.8-1.5) mg/dL Glucose 110 H (75-100) mg/dL POC Glucose (70-105) Calcium 7.8 L (8.4-10.2) mg/dL Iron 9 L (49-181) ug/dL TIBC 57 L (250-450) mcg/dL Ferritin (13.0-400.0) ng/mL Total Protein 4.3 L (6.3-8.2) g/dL Albumin 1.5 L (3.9-5) g/dL Vitamin B12 (211-911) pg/mL 06/18/19 06/18/19 06/18/19 Range/Units 05:00 05:00 07:40 WBC (4.5-11.0) K/mm3 RBC (3.65-5.03) M/mm3 Hgb (11.8-15.2) gm/dl Hct (35.5-45.6) % RDW (13.2-15.2) % Plt Count (140-440) K/mm3 Seg Neuts % (Manual) (40.0-70.0) % Monocytes % (Manual) (0.0-7.3) % Nucleated RBC % (0.0-0.9) % Seg Neutrophils # Man (1.8-7.7) K/mm3 Lymphocytes # (Manual) (1.2-5.4) K/mm3 PT (12.2-14.9) Sec. INR (0.87-1.13) POC ABG pO2 (80-105) Sodium (137-145) mmol/L Potassium (3.6-5.0) mmol/L BUN (9-20) mg/dL Creatinine (0.8-1.5) mg/dL Glucose (75-100) mg/dL POC Glucose 133 H (70-105) Calcium (8.4-10.2) mg/dL Iron (49-181) ug/dL TIBC (250-450) mcg/dL Ferritin 1595.0 H (13.0-400.0) ng/mL Total Protein (6.3-8.2) g/dL Albumin (3.9-5) g/dL Vitamin B12 > 2000 H (211-911) pg/mL 06/18/19 06/18/19 06/18/19 Range/Units 12:35 12:47 14:16 WBC (4.5-11.0) K/mm3 RBC (3.65-5.03) M/mm3 Hgb (11.8-15.2) gm/dl Hct (35.5-45.6) % RDW (13.2-15.2) % Plt Count (140-440) K/mm3 Seg Neuts % (Manual) (40.0-70.0) % Monocytes % (Manual) (0.0-7.3) % Nucleated RBC % (0.0-0.9) % Seg Neutrophils # Man (1.8-7.7) K/mm3 Lymphocytes # (Manual) (1.2-5.4) K/mm3 PT (12.2-14.9) Sec. INR (0.87-1.13) POC ABG pO2 54 L (80-105) Sodium 148 H (137-145) mmol/L Potassium 2.7 L* D (3.6-5.0) mmol/L BUN 68 H (9-20) mg/dL Creatinine 3.9 H (0.8-1.5) mg/dL Glucose 171 H (75-100) mg/dL POC Glucose 196 H (70-105) Calcium 7.9 L (8.4-10.2) mg/dL Iron (49-181) ug/dL TIBC (250-450) mcg/dL Ferritin (13.0-400.0) ng/mL Total Protein (6.3-8.2) g/dL Albumin (3.9-5) g/dL Vitamin B12 (211-911) pg/mL
--- NOTE | 2019-06-18 16:49 | Ultrasound Report ---
ULTRASOUND ABDOMEN, COMPLETE INDICATION: LOW COUNTS - FOR LIVER SPLEEN SIZE. COMPARISON: None available. FINDINGS: Pancreas: Normal. Abdominal Aorta: Normal. IVC: Normal. Liver: Normal. Gallbladder: Multiple calcified gallstones with posterior shadowing. Thickened gallbladder wall measu ring 6 mm Bile ducts: Normal. Common Bile Duct measures 5 mm. Right Kidney: Echogenic measuring 10.9 cm Left Kidney: Echogenic measuring 11.2 cm. Several simple left renal cysts, largest of which measures 2.5 cm Spleen: Normal. 7.9 cm in length Free fluid: Trace perihepatic ascites Additional Findings: Small right pleural effusion IMPRESSION: 1. Cholelithiasis with thickened gallbladder wall characteristic for acute cholecystitis. 2. Pancreas poorly visualized secondary to bowel gas 3. Echogenic kidneys characteristic for medical renal disease. 4. Small right pleural effusion Signer Name: Chris Eid MD Signed: 06/18/2019 4:44 PM Workstation Name: [id number]
[2019-06-18] MEDS: KCL 10MEQ/100ML 10 MEQ/100 ML BAG IV SCH ×4 (16:50→23:14)
[2019-06-18] MEDS: LEVOPHED DRIP 4 MG/NS 250 ML 4 MG/250 ML BAG IV SCH (18:13)
[2019-06-18] MEDS ORDERED: KCL 10MEQ/100ML 10 MEQ/100 ML BAG IV NR (23:00)
[2019-06-18] MEDS ORDERED: POTASSIUM CHLORIDE FEEDTUBE NR (23:00)
[2019-06-19] MEDS: HumaLOG SUB-Q SCH ×2 (00:30→08:08)
--- NOTE | 2019-06-19 03:03 | XRay Report ---
CHEST 1 VIEW INDICATION / CLINICAL INFORMATION: follow up respiratory failure. COMPARISON: 06/18/2019 FINDINGS: SUPPORT DEVICES: Endotracheal tube and PICC line remain in place unchanged. HEART / MEDIASTINUM: No significant abnormality. LUNGS / PLEURA: The left lung consolidation appears unchanged. There is some worsening in the right m id and right lower lung zones. Minimal effusions are stable. No pneumothorax. ADDITIONAL FINDINGS: No significant additional findings. IMPRESSION: 1 Slight interval worsening Signer Name: Tyler Osorio MD Signed: 06/19/2019 2:59 AM Workstation Name: [email or web address] [id number] [email or web address]
--- NOTE | 2019-06-19 05:42 | Event Note ---
CODE blue ACLS protocol was initiated there was + ROSC Refer lyudmila ode sheet for details
[2019-06-19 05:48] LABS: INR 1.43 (0.87-1.13)
[2019-06-19 05:59] LABS: Albumin 1.5 g/dL (3.9-5); Calcium 8.3 mg/dL (8.4-10.2)
[2019-06-19] MEDS ORDERED: ADRENALIN ONE ×2 (06:00→16:56)
[2019-06-19 06:02] LABS: Hematocrit 21.1 % (35.5-45.6); Mean Corpuscular HGB Conc 33 % (32-34); Mean Corpuscular Volume 86 fl (84-94); Red Blood Count 2.45 M/mm3 (3.65-5.03); Red Cell Distribution Width 17.9 % (13.2-15.2)
[2019-06-19 06:12] LABS: Platelet Count 30 K/mm3 (140-440)
--- NOTE | 2019-06-19 06:33 | Hem/Onc Progress Note ---
Assessment and Plan 1. Anemia, thrombocytopenia, leukopenia, pancytopenia. At admission, white cell count was normal and then it had started going down after 06/15/2019. This may be secondary to infection. 2. Anemia. At admission, hemoglobin is normal. Elevated ferritin. 3. Thrombocytopenia. HIT antibodies have been requested. At admission, platelet was normal. He had a hypotensive episode. Sometimes, these events would cause it. Other medications may also have a role. 4. Metabolic encephalopathy. Neurology is following. 5. Respiratory failure on intubation. 6. History of cardiogenic shock and was on pressors. 7. Sepsis, extended-spectrum beta-lactamases. ID is following. 8. Pneumonia. 9. Urinary tract infection. 10. Cardiomyopathy. 11. Renal impairment. 12. Dementia. 13. Diabetes. 14. History of bradycardia. 15. We will plan and do ultrasound abdomen. Pharmacy will have to see if any medication can be reversed. If there is bleeding, transfusion support is an option. - Patient Problems (1) Anemia Status: Acute Subjective Date of service: 06/19/19 Objective - Constitutional Vitals: Last Vital Signs Temp 97.4 F L 06/19/19 00:00 Pulse 85 06/19/19 04:30 Resp 27 H 06/19/19 04:30 BP 76/38 06/19/19 04:30 Pulse Ox 89 06/19/19 04:30 - Labs Lab Results: Laboratory Results - last 24 hr 06/17/19 06/18/19 06/18/19 11:34 05:00 05:00 WBC 1.3 L* RBC Hgb Hct MCV MCH MCHC RDW Plt Count 14 L* 14 L* PT INR POC ABG pH POC ABG pCO2 POC ABG pO2 POC ABG HCO3 POC ABG Total CO2 POC ABG O2 Sat POC ABG Base Excess FiO2 Sodium Potassium Chloride Carbon Dioxide Anion Gap BUN Creatinine Estimated GFR BUN/Creatinine Ratio Glucose POC Glucose Calcium Total Bilirubin AST ALT Alkaline Phosphatase Total Protein Albumin Albumin/Globulin Ratio Vitamin B12 > 2000 H Folate Random Vancomycin Blood Type 06/18/19 06/18/19 06/18/19 05:00 07:40 12:35 WBC RBC Hgb Hct MCV MCH MCHC RDW Plt Count PT INR POC ABG pH POC ABG pCO2 POC ABG pO2 POC ABG HCO3 POC ABG Total CO2 POC ABG O2 Sat POC ABG Base Excess FiO2 Sodium 148 H Potassium 2.7 L* D Chloride 106.3 Carbon Dioxide 24 Anion Gap 20 BUN 68 H Creatinine 3.9 H Estimated GFR 19 BUN/Creatinine Ratio 17 Glucose 171 H POC Glucose 133 H Calcium 7.9 L Total Bilirubin AST ALT Alkaline Phosphatase Total Protein Albumin Albumin/Globulin Ratio Vitamin B12 Folate 7.78 Random Vancomycin Blood Type 06/18/19 06/18/19 06/18/19 12:47 13:10 14:16 WBC RBC Hgb Hct MCV MCH MCHC RDW Plt Count PT INR POC ABG pH 7.381 POC ABG pCO2 37.0 POC ABG pO2 54 L POC ABG HCO3 22.0 POC ABG Total CO2 23 POC ABG O2 Sat 87 POC ABG Base Excess -3 FiO2 40 Sodium Potassium Chloride Carbon Dioxide Anion Gap BUN Creatinine Estimated GFR BUN/Creatinine Ratio Glucose POC Glucose 196 H Calcium Total Bilirubin AST ALT Alkaline Phosphatase Total Protein Albumin Albumin/Globulin Ratio Vitamin B12 Folate Random Vancomycin Blood Type A POSITIVE 06/18/19 06/18/19 06/19/19 14:44 17:47 00:28 WBC RBC Hgb Hct MCV MCH MCHC RDW Plt Count PT INR POC ABG pH POC ABG pCO2 POC ABG pO2 POC ABG HCO3 POC ABG Total CO2 POC ABG O2 Sat POC ABG Base Excess FiO2 Sodium Potassium 2.3 L* Chloride Carbon Dioxide Anion Gap BUN Creatinine Estimated GFR BUN/Creatinine Ratio Glucose POC Glucose 139 H 174 H Calcium Total Bilirubin AST ALT Alkaline Phosphatase Total Protein Albumin Albumin/Globulin Ratio Vitamin B12 Folate Random Vancomycin Blood Type 06/19/19 06/19/19 06/19/19 04:25 05:00 05:00 WBC RBC Hgb Hct MCV MCH MCHC RDW Plt Count PT 17.1 H INR 1.43 H POC ABG pH 7.259 L POC ABG pCO2 51.2 H POC ABG pO2 65 L POC ABG HCO3 23.0 POC ABG Total CO2 24 POC ABG O2 Sat 88 POC ABG Base Excess -4 FiO2 65 Sodium Potassium Chloride Carbon Dioxide Anion Gap BUN Creatinine Estimated GFR BUN/Creatinine Ratio Glucose POC Glucose Calcium Total Bilirubin AST ALT Alkaline Phosphatase Total Protein Albumin Albumin/Globulin Ratio Vitamin B12 Folate Random Vancomycin 9.6 Blood Type 06/19/19 06/19/19 06/19/19 05:00 05:00 06:26 WBC 0.4 L* RBC 2.45 L Hgb 7.0 L Hct 21.1 L MCV 86 MCH 29 MCHC 33 RDW 17.9 H Plt Count 30 L D PT INR POC ABG pH POC ABG pCO2 POC ABG pO2 POC ABG HCO3 POC ABG Total CO2 POC ABG O2 Sat POC ABG Base Excess FiO2 Sodium 147 H Potassium 2.9 L* D Chloride 107.1 H Carbon Dioxide 22 Anion Gap 21 BUN 72 H Creatinine 4.1 H Estimated GFR 18 BUN/Creatinine Ratio 18 Glucose 168 H POC Glucose 188 H Calcium 8.3 L Total Bilirubin 1.00 AST 16 ALT 13 Alkaline Phosphatase 51 Total Protein 4.3 L Albumin 1.5 L Albumin/Globulin Ratio 0.5 Vitamin B12 Folate Random Vancomycin Blood Type Medications & Allergies - Medications Allergies/Adverse Reactions: Allergies No Known Allergies Allergy (Verified 05/19/19 22:08) Home Medications: Home Medications Medication Instructions Recorded Confirmed Last Taken Type Cholestyramine/Aspartame 239.4 mg PO TID 05/20/19 06/05/19 Unknown History [Cholestyramine Light Powder] Famotidine [Pepcid] 20 mg PO BID 05/20/19 06/05/19 Unknown History Ferrous Gluconate [Fergon 240 MG 240 mg PO BID 05/20/19 06/05/19 Unknown History tab] Finasteride [Proscar] 5 mg PO DAILY 05/20/19 06/05/19 Unknown History Mirtazapine [Remeron 15mg TAB] 15 mg PO QHS 05/20/19 06/05/19 Unknown History Tamsulosin [Flomax] 0.4 mg PO QDAY 05/20/19 06/05/19 Unknown History Vitamin B Complex [B Complex] 1 each PO DAILY 05/20/19 06/05/19 Unknown History Aspirin EC 81 mg PO QDAY tablet 05/22/19 06/05/19 Unknown Rx Insulin Regular, Human [HumuLIN R] 0 units SUB-Q ACHS units 05/22/19 06/05/19 Unknown Rx Megestrol [Megace] 400 mg PO QDAY oral.liqd 05/22/19 06/05/19 Unknown Rx Insulin NPH/Regular [NovoLIN 70/30] 10 unit SQ BIDDIAB #1 vial 05/27/19 06/05/19 Unknown Rx Metoprolol [Lopressor TAB] 12.5 mg PO BID #60 tablet 05/27/19 06/05/19 Unknown Rx amLODIPine [Norvasc] 10 mg PO QDAY #60 tablet 05/27/19 06/05/19 Unknown Rx Active Medications: Generic Name Dose Route Start Last Admin Trade Name Freq PRN Reason Stop Dose Admin Acetaminophen 650 mg 06/08/19 14:58 Tylenol PO Q4H PRN Pain MILD(1-3)/Fever >100.5/POLANCO Albuterol 2.5 mg 06/18/19 20:00 06/18/19 19:56 Proventil IH 2.5 mg Q12HRT ELIZABETH Administration Lipase/Protease/Amylase 1 each 06/09/19 16:01 Pancreaze 10,500 Unit FEEDTUBE PRN PRN For Clogged Feeding Tube Cholestyramine Resin 4 gm 06/05/19 20:00 06/18/19 22:56 Questran PO 4 gm TID ELIZABETH Administration Dextrose 50 ml 06/05/19 14:03 06/16/19 06:14 D50w (25gm) Syringe IV 50 ml PRN PRN Administration Hypoglycemia Famotidine 20 mg 06/05/19 22:00 06/18/19 09:02 Pepcid PO 20 mg DAILY ELIZABETH Administration Fentanyl 50 mcg 06/14/19 11:17 Sublimaze IV Q10MIN PRN ANALGESIA Ferrous Sulfate 308 mg 06/16/19 10:00 06/18/19 22:56 Ferrous Sulfate PO 308 mg BID ELIZABETH Administration Finasteride 5 mg 06/06/19 10:00 06/18/19 09:03 Proscar PO 5 mg DAILY ELIZABETH Administration Hydralazine HCl 10 mg 06/07/19 14:00 06/07/19 13:42 Apresoline IV 10 mg Q3HR PRN Administration Elevated BP Hydrocortisone Sodium Succinate 100 mg 06/17/19 10:00 06/19/19 05:06 Solu-Cortef IV 06/22/19 09:59 100 mg Q8HR ELIZABETH Administration Hydrophilic Ointment 1 applic 06/14/19 11:17 Vaseline Lip Therapy TP Q2HR PRN Dry Lips Norepinephrine 4 mg in 250 mls @ 7.5 mls/hr 06/14/19 06:15 06/19/19 01:11 Levophed Drip 4 Mg/Ns 250 Ml IV 8 mcg/min TITR ELIZABETH 30 mls/hr Titration Protocol 2 MCG/MIN Fentanyl Citrate 2,000 mcg in 100 mls @ 2.46 mls/hr 06/14/19 12:00 06/15/19 08:24 Fentanyl Drip Premix IV 0 mcg/kg/hr TITR ELIZABETH 0 mls/hr Titration Protocol 1 MCG/KG/HR Meropenem 500 mg in 50 mls @ 50 mls/hr 06/16/19 10:00 06/18/19 09:01 Merrem/Ns 500 Mg/50 Ml IV 50 mls/hr Q24HR ELIZABETH Administration Dobutamine HCl/Dextrose 500 mg in 250 mls @ 7.38 mls/hr 06/18/19 12:00 06/18/19 13:17 Dobutrex Drip 500mg/D5w 250ml IV 5 mcg/kg/min DIRECT ELIZABETH 7.38 mls/hr Administration 5 MCG/KG/MIN Potassium Chloride 20 meq in 100 mls @ 100 mls/hr 06/19/19 07:00 Kcl 20meq/100ml IV 06/19/19 08:59 Q1H [facility] Insulin Human Lispro 0 unit 06/18/19 12:00 06/19/19 00:30 Humalog SUB-Q 1 unit Q6HR [facility] Administration Protocol Multi-Ingred Cream/Lotion/Oil/Oint 1 applic 06/14/19 11:17 Artificial Tears Ophth Oint OU Q4HR PRN Dry Eye(s) Ondansetron HCl 4 mg 06/08/19 14:58 Zofran IV Q8H PRN Nausea And Vomiting Oxycodone/Acetaminophen 1 tab 06/08/19 14:58 Percocet 5/325 PO Q6H PRN Pain, Moderate (4-6) Simple Syrup 15 ml 06/09/19 16:01 Simple Syrup FEEDTUBE PRN PRN Hypoglycemia Simple Syrup 30 ml 06/09/19 16:01 Simple Syrup FEEDTUBE PRN PRN Hypoglycemia Sodium Bicarbonate 325 mg 06/09/19 16:01 Sodium Bicarbonate FEEDTUBE PRN PRN For Clogged Feeding Tube Sodium Chloride 10 ml 06/05/19 22:00 06/18/19 23:15 Sodium Chloride Flush Syringe 10 Ml IV 10 ml BID ELIZABETH Administration Sodium Chloride 10 ml 06/05/19 14:00 06/13/19 13:04 Sodium Chloride Flush Syringe 10 Ml IV 10 ml PRN PRN Administration LINE FLUSH Tamsulosin HCl 0.4 mg 06/06/19 10:00 06/18/19 09:02 Flomax PO 0.4 mg QDAY ELIZABETH Administration Tbo-Filgrastim 300 mcg 06/19/19 10:00 Granix SUB-Q 06/22/19 09:59 DAILY ELIZABETH Vitamin B Complex/Vitamin C 1 each 06/06/19 10:00 06/18/19 09:02 Allbee With C PO 1 each QDAY ELIZABETH Administration
[2019-06-19] MEDS ORDERED: KCL 20MEQ/100ML 20 MEQ/100 ML BAG IV SCH (07:00)
[2019-06-19 08:05] VITALS: BP 109/44
--- NOTE | 2019-06-19 08:19 | Death Summary ---
Summary - Providers Date of service: 06/19/19 Consults: 06/05/19 13:27 Physical Therapy Evaluation and Treat [CONS] Routine Comment: Reason For Exam: debility 06/05/19 13:28 Consult to Case Management [CONS] Routine Services Needed at Discharge: Other Notified:: Rosmery Phone number called:: [phone] Was contact made?: Yes If yes, spoke with:: Rosmery Time called:: 14:00 Comment:: Ok Additional Physician Instructions: Discharge planning/SENIOR CARE Placement 06/05/19 14:13 Speech Therapy Evaluation and Treat [CONS] Routine Reason For Exam: failed bedside swallow eval 06/05/19 15:21 Consult to Physician [CONS] Routine Comment: caled office/ [facility] Consulting Provider: NI MOORE Physician Instructions: Reason For Exam: PAPITO 06/08/19 14:58 Consult to Physician [CONS] Routine Comment: called office/ [facility] Consulting Provider: REMY AMIN Physician Instructions: Reason For Exam: peg tube 06/09/19 08:02 Consult to Physician [CONS] Routine Comment: spoke with dr. 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 Reason for Consult: Write/Manage Tube Feeding 06/10/19 14:10 Consult to Physician [CONS] Routine Comment: Consulting Provider: KALLI LIU Physician Instructions: Reason For Exam: Altered mental status 06/12/19 10:24 Consult to Physician [CONS] Routine Comment: paged overhead/ [facility] Consulting Provider: JACK THOMASON Physician Instructions: Reason For Exam: Bradycardia 06/12/19 12:46 Consult to Physician [CONS] Routine Comment: called office/ [facility] Consulting Provider: CLAIRE LUZ Physician Instructions: Reason For Exam: acute resp failure, hypoxia 06/13/19 19:04 Consult to Wound/ET Nurse [CONS] Routine Reason For Exam: wound eval 06/14/19 11:18 Consult to Dietitian/Nutrition [CONS] Routine Physician Instructions: Reason For Exam: Reason for Consult: Evaluate nutritional intake 06/14/19 12:51 PICC Line Insertion [Consult to PICC Line RN] [CONS] Stat Reason For Exam: PICC line insertion Type Line:: PICC 06/17/19 17:27 Consult to Physician [CONS] Routine Comment: Consulting Provider: MELLISA RODRIGUEZ Physician Instructions: Reason For Exam: PANCYTOPENIA Attending: CAROLINA WINKLER MD - summary Date of admission: 06/05/19 13:25 Date of : 06/19/19 Reason for admission: AMS Significant findings: patient is 68 YO Male with Dementia, Severe Malnutrition, GERD, HTN presented to ED for evaluation. Patient was stuporous and unable to provide history. Pt history provided by his son. As per son, the patient has experienced progressive weakness over 3 weeks, but is able to care for himself. Patient was in his usual state of health few days earlier. Patient was found by his son to be confused, unable to stand, nonverbal and not following commands. EMS notified and patient brought to hospital . He was seen and evaluated in ED and found to have Metabolic Encephalopathy, Acute Kidney Injury, Acidosis, Severe Malnutrition, UTI, and Volume Depletion. Patient admitted to [facility]. Further work up revealed sepsis due to ESBL klebsiella pneumoniae. He was evaluated by Neurology, MRI unremarkable. He had bradycardia in 40s was seen by cardiology. He became worse, hypotensive, transferred to ICU started on Pressors, had acute resp failure, intubated. he is currently on 2 pressors, intubated, worsening renal function. Family wants everything done. Full code. During hospitalization patient was treated as documented in the progress notes, multiple attempts to librate from the vent was unsuccessful, He was treated with abx and also with antiarrythmic agents due to his bradycardia. The patient was noted to have severe cardiomyoapthy, severity of his illness was discussed with the family in detail. Early this am the patient had a code blue and was resuscitated, this happened again and in the middle of thee code the patients son who is the POA called for cessation of the code as this was not want his father would want. Patient was pronounced at 8:13 am. condolence expressed to the family. PE: Non responsive to verbal and noxious stimuli Pupil fixed and dilated. No spontaneous breathing noted No auscultated heart sound. Previous Cultures: 05/19/2019 Blood: no growth 05/19/2019 Urine: ESBL Klebsiella Cultures: 06/14/19 BCX - NGTD 06/14/19 trach asp - MRSA 06/05/2019 Urine: ESBL Klebsiella 06/05/2019 Blood: NGTD Acute hypoxemic respiratory failure on supplemental oxygen Severe Sepsis with shock secondary to ESBL Acute metabolic encephalopathy Acute renal failure with vasomotor nephropathy Severe protein calorie malnutrition Sinus Bradycardia Thrombocytopenia Cardiomyopathy EF 25% Metabolic acidosis, probably secondary to sepsis and renal failure Leukopenia Hypokalemia acute cystitis due to ESBL Klebsiella pneumoniae Dementia Sinus Bradycardia
[2019-06-19] MEDS: PROVENTIL IH SCH (08:57)
[2019-06-19] MEDS ORDERED: VANCOMYCIN/NS 1 GM/250 ML 1 GM/250 ML BAG IV ONE (10:00)
[2019-06-19] MEDS ORDERED: GRANIX SUB-Q SCH (10:00)
[2019-06-22 16:33] LABS: Heparin-Induced Platelet Antib Negative (Negative); Unfractionated Heparin Negative (Negative)
== END 2019-06-19 10:00 | DRG 870 ==
LOC: ED 10:17 → 2B-ACE 13:25 → CC1 06-13 16:54
PROVIDERS: ADMIT Internal Medicine; ATTEND Internal Medicine
PROC: 06HY33Z Insertion of Infusion Device into Lower Vein, Percutaneous Approach (ICD-10-PCS; 2019-06-05)
PROC: B54BZZA Ultrasonography of Right Lower Extremity Veins, Guidance (ICD-10-PCS; 2019-06-05)
PROC: 0DH63UZ Insertion of Feeding Device into Stomach, Percutaneous Approach (ICD-10-PCS; principal; 2019-06-09)
PROC: 4A033R1 Measurement of Arterial Saturation, Peripheral, Percutaneous Approach (ICD-10-PCS; 2019-06-12)
PROC: 5A09357 Assistance with Respiratory Ventilation, Less than 24 Consecutive Hours, Continuous Positive Airway Pressure (ICD-10-PCS; 2019-06-13)
PROC: 5A1955Z Respiratory Ventilation, Greater than 96 Consecutive Hours (ICD-10-PCS; 2019-06-14)
PROC: 0BH17EZ Insertion of Endotracheal Airway into Trachea, Via Natural or Artificial Opening (ICD-10-PCS; 2019-06-14)
PROC: 5A09357 Assistance with Respiratory Ventilation, Less than 24 Consecutive Hours, Continuous Positive Airway Pressure (ICD-10-PCS; 2019-06-14)
PROC: 02H633Z Insertion of Infusion Device into Right Atrium, Percutaneous Approach (ICD-10-PCS; 2019-06-17)
PROC: 30233R1 Transfusion of Nonautologous Platelets into Peripheral Vein, Percutaneous Approach (ICD-10-PCS; 2019-06-18)
DX: A41.59 Other Gram-negative sepsis (principal); G93.41 Metabolic encephalopathy; E43 Unspecified severe protein-calorie malnutrition; N17.0 Acute kidney failure with tubular necrosis; J96.01 Acute respiratory failure with hypoxia; R65.21 Severe sepsis with septic shock; J15.212 Pneumonia due to Methicillin resistant Staphylococcus aureus; E87.2 Acidosis; E87.0 Hyperosmolality and hypernatremia; I42.9 Cardiomyopathy, unspecified; N30.00 Acute cystitis without hematuria; D61.818 Other pancytopenia; Z68.1 Body mass index [BMI] 19.9 or less, adult; I25.10 Atherosclerotic heart disease of native coronary artery without angina pectoris; F03.90 Unspecified dementia, unspecified severity, without behavioral disturbance, psychotic disturbance, mood disturbance, and anxiety; E86.9 Volume depletion, unspecified; K21.9 Gastro-esophageal reflux disease without esophagitis; D69.6 Thrombocytopenia, unspecified; D72.819 Decreased white blood cell count, unspecified; E87.6 Hypokalemia; B96.1 Klebsiella pneumoniae [K. pneumoniae] as the cause of diseases classified elsewhere; N28.1 Cyst of kidney, acquired; E86.0 Dehydration; E11.649 Type 2 diabetes mellitus with hypoglycemia without coma; I12.9 Hypertensive chronic kidney disease with stage 1 through stage 4 chronic kidney disease, or unspecified chronic kidney disease; E11.22 Type 2 diabetes mellitus with diabetic chronic kidney disease; N18.9 Chronic kidney disease, unspecified; D64.9 Anemia, unspecified; R13.10 Dysphagia, unspecified; Z79.82 Long term (current) use of aspirin; Z79.899 Other long term (current) drug therapy; Z79.4 Long term (current) use of insulin; Z86.73 Personal history of transient ischemic attack (TIA), and cerebral infarction without residual deficits
CPT/HCPCS: 31500; 36415; 36600; 70450; 70551; 71045; 76700; 76770; 80048; 80053; 80061; 80202; 81001; 82140; 82550; 82553; 82570; 82607; 82728; 82747; 82803; 82947; 82962; 83036; 83550; 83735; 83880; 84100; 84132; 84165; 84300; 84439; 84443; 84484; 85007; 85025; 85027; 85610; 85730; 86022; 86140; 86334; 86900; 86901; 87040; 87070; 87076; 87086; 87186; 87205; 92950; 93005; 93010; 94002; 94003; 94640; 94660; 94760; 95819; 96360; 96361; G0378; J0171; J0360; J0461; J0610; J0690; J0696; J1250; J1265; J1335; J1447; J1610; J1644; J1720; J1815; J2185; J2250; J2704; J3010; J3370; J3475; J3480; J7030; J7040; J7042; J7070; J7120; P9035